=== PATIENT | female | born 1960 | race Caucasian/White ===

== ENCOUNTER 2018-03-11 00:52 | Emergency (ER) | payer OTHER, MEDICAID, SELFPAY ==
[2018-03-11 01:02] VITALS: BP 141/94; PULSE 98; RESP 18; TEMP 36.7; O2SAT 94; BMI 20.2
--- NOTE | 2018-03-11 01:30 | PC.NURSE ---
Medics state pt has ETOH onboard and was threatening to jump off bridge. Upon arrival pt states that she drank more than usual and denies SI, wanting to harm herself or others. Pt is alert and orientated.
--- NOTE | 2018-03-11 01:31 | ED_ITS ---
HPI - Psych General Chief Complaint: Psychiatric Symptoms Stated Complaint: Suicidal Ideation Time Seen by Provider: 03/11/18 01:06 Source: patient and EMS Mode of arrival: EMS Limitations: no limitations History of Present Illness HPI Narrative: 50-year-old female with chronic liver problems presents to the emergency department with a chief complaint of significant alcohol consumption over the course of the day and she became upset and told EMS that stated leave her alone she would jump off a bridge. She denies any pain and has no fever or chills. She has no chest pain or shortness of breath. She is not dizzy nor weak or lightheaded. She admittedly drink more than she is used to and by arrival here denies any suicidal ideation MD complaint: suicidal ideation and feels depressed Onset (ago): hour(s) Duration: resolved prior to arrival History of same: No Relieving factors: none Exacerbating factors: alcohol Context: recent alcohol abuse Associated psychiatric symptoms: depression Associated symptoms: denies other symptoms Treatments prior to arrival: none Related Data Home Medications Medication Instructions Recorded Confirmed multivitamin [Multiple Vitamins] 1 tab PO QDAY #0 07/27/17 03/02/18 Previous Rx's Medication Instructions Recorded rifaximin [Xifaxan] 550 mg PO BID #60 tab 09/16/16 nadolol 20 mg PO QDAY #90 tab 02/09/17 lactulose 30 ml PO BID #1892 ml 04/21/17 spironolactone [Aldactone] 50 mg PO QDAY #90 tab 06/22/17 furosemide 20 mg tablet 20 mg PO QDAY #30 tab 03/02/18 lorazepam 1 mg tablet 1 mg PO BIDP PRN #30 tab 03/02/18 Allergies Allergy/AdvReac Type Severity Reaction Status Date / Time No Known Drug Allergies Allergy Verified 03/11/18 01:02 Review of Systems Review of Systems All systems reviewed & are unremarkable except as noted in HPI and below Constitutional Denies chills, Denies fever(s), Denies lethargy and Denies weakness Eyes Denies change in vision, Denies eye discharge, Denies irritation and Denies loss of vision ENT Ears, Nose, Mouth, and Throat: Denies change in voice, Denies neck pain and Denies sore throat Cardiovascular Denies chest pain, Denies irregular heart rhythm, Denies lightheadedness, Denies palpitations, Denies dyspnea, Denies dyspnea on exertion and Denies orthopnea Respiratory Denies cough, Denies dyspnea, Denies dyspnea on exertion and Denies wheezing Gastrointestinal Gastrointestinal: Denies abdominal pain, Denies change in bowel habits, Denies diarrhea, Denies nausea and Denies vomiting Genitourinary Denies hematuria, Denies flank pain, Denies urinary incontinence and Denies urinary urgency Musculoskeletal Denies neck pain Integumentary/Breasts Denies pruritus, Denies erythema, Denies rash and Denies wounds Neurologic Denies confusion, Denies loss of vision and Denies weakness Psychiatric Denies anxiety, Denies confusion, Reports depression, Denies homicidal ideation and Reports suicidal ideation Endocrine Denies palpitations Hematologic/Lymphatic Denies easy bruising Allergic/Immunologic Denies wheezing PFSH Medical History Anxiety (Chronic) Cardiac arrhythmia (Chronic) Cirrhosis (Chronic 2012) Coagulation disorder (Chronic 2012) EV (esophageal varices) (Chronic 10/2015) Eczema (Chronic 2014) GI bleeding (Chronic 2015) Hypertension (Chronic) Hypothyroidism (Chronic) Nonalcoholic fatty liver disease (Chronic) PTSD (post-traumatic stress disorder) (Chronic 1999) Portal hypertensive gastropathy (Chronic 05/2015) Psoriasis (Chronic 2014) Chicken pox (Resolved) History of blood transfusion (Resolved 10/2015) History of heavy periods (Resolved 2014) Measles (Resolved) Mumps (Resolved) Ovarian cyst (Resolved 2012) Painful menstrual periods (Resolved 2012) Surgical History History of esophagogastroduodenoscopy (EGD) (Resolved 01/2009) History of esophagogastroduodenoscopy (EGD) (Resolved 05/2015) Status post appendectomy (Resolved) Status post colonoscopy (Resolved 01/2009) Status post hernia repair (Resolved) Status post hysteroscopy (Resolved 06/17/11) Status post laparoscopic supracervical hysterectomy (Resolved 08/25/16) Family History Grandfather Heart disease [place] (myocardial infarction) Grandmother Alcoholism Father No problems noted. Mother No problems noted. Grandfather Heart disease Grandmother Colon cancer Brother No problems noted. Social History (Reviewed 03/11/18 @ 01:30 by JESUS Ocampo Smoking Status: Never smoker Exam Narrative Exam Narrative: GENERAL: A bit disheveled and in mild distress, smells of alcohol but is smiling and interactive HEAD: Atraumatic. Normocephalic. No temporal or scalp tenderness. EYES: Pupils equal round and reactive. Extraocular motions intact. No scleral icterus. No injection or drainage. ENT: Nose without bleeding, purulent drainage or septal hematoma. Throat without erythema, tonsillar hypertrophy or exudate. Uvula midline. Airway patent. NECK: Trachea midline. No JVD or lymphadenopathy. Supple, nontender, no meningeal signs. CARDIOVASCULAR: Regular rate and rhythm without murmurs, gallops, or rubs. RESPIRATORY: Clear to auscultation. Breath sounds equal bilaterally. No wheezes , rales, or rhonchi. GASTROINTESTINAL: Abdomen soft, non-tender, nondistended. No hepato-splenomegaly , or palpable masses. No guarding. EXTREMITIES: No clubbing, cyanosis, or edema. No joint tenderness, effusion, or edema noted. BACK: Nontender without deformity or crepitance. No flank tenderness. NEURO: AOx3. SKIN: No rash or erythema. Initial Vital Signs Initial Vital Signs: Vital Signs Temperature 98.0 F 03/11/18 01:02 Pulse Rate 98 H 03/11/18 01:02 Respiratory Rate 18 03/11/18 01:02 Blood Pressure 141/94 H 03/11/18 01:02 Pulse Oximetry 94 03/11/18 01:02 Course Orders Ordered: ED Orders 03/11/18 01:20 Complete Blood Count AUTO DIFF Stat Comprehensive Metabolic Panel Stat Ethanol (ETOH) Stat Hepatic (Liver) Panel Stat Lipase Stat Magnesium Stat 03/11/18 01:50 Urine Drug Screen, Rapid Stat Sodium Chloride (Normal Saline 0.9%) 1,000 mls @ 150 mls/hr IV CONT AGNIESZKA Last Admin: 03/11/18 01:32 Dose: 150 mls/hr Reevaluation(s) Reevaluation #1: Patient speaking clearly without slurring words unable to walk with a steady gait. She has full capacity and is requesting discharge. Time: 06:33 Vital Signs - 8 hr 03/11/18 01:02 03/11/18 06:25 Temperature 98.0 F 98.0 F Pulse Rate 98 H 98 H Respiratory Rate 18 18 Blood Pressure 141/94 H 141/94 H Pulse Oximetry 94 94 MDM - Psych Lab Data Result diagrams: 03/11/18 01:20 03/11/18 01:20 Lab Results 03/11/18 03/11/18 03/11/18 Range/Units 01:20 01:20 01:50 WBC 9.0 (4.5-11.0) X10^3/uL RBC 4.56 (4.0-5.2) X10^6/uL Hgb 15.0 (12.0-16.0) g/dL Hct 43.1 (36-46) % MCV 94.5 (80-100) fL MCH 33.0 (26-34) PG MCHC 34.9 (30-36) % RDW 13.5 (11.6-14.8) % Plt Count 215 (150-400) X10^3/uL Neut % (Auto) 49.4 L (50-75) % Lymph % (Auto) 39.6 (25-40) % Wharton % (Auto) 8.7 (3-14) % Eos % (Auto) 1.5 L (2-4) % Baso % (Auto) 0.8 (0-2) % Neut # (Auto) 4400 (7504-1457) /uL Sodium 151 H (137-145) mmol/L Potassium 4.4 (3.4-5.1) mmol/L Chloride 109 H (98-107) mmol/L Carbon Dioxide 25 (22-32) mmol/L BUN 11 (7-17) mg/dL Creatinine 0.60 (0.52-1.04) mg/dL Estimated GFR > 60.0 (>60) mL/min BUN/Creatinine Ratio 18.3 (6-22) Glucose 88 (70-100) mg/dL Calcium 9.9 (8.4-10.2) mg/dL Magnesium 1.7 (1.6-2.3) mg/dL Total Bilirubin 0.6 (0.2-1.3) mg/dL Conjugated Bilirubin 0.0 (0.0-0.3) md/dL Unconjugated Bilirubin 0.3 (0.0-1.1) mg/dL AST 233 H (14-36) IU/L ALT 175 H (9-52) IU/L Alkaline Phosphatase 81 (38-126) U/L Total Protein 8.1 (6.3-8.2) g/dL Albumin 4.7 (3.5-5.0) g/dL Globulin 3.4 (1.7-4.1) g/dL Albumin/Globulin Ratio 1.4 (1.0-2.8) Lipase 378 H (23-300) U/L Urine Opiates Screen Negative (Negative) Ur Oxycodone Screen Negative (Negative) Urine Methadone Screen Negative (Negative) Ur Barbiturates Screen Negative (Negative) U Tricyclic Antidepress Negative (Negative) Ur Phencyclidine Scrn Negative (Negative) Ur Amphetamines Screen Negative (Negative) U Methamphetamines Scrn Negative (Negative) Ur MDMA Scrn (Ecstasy) Negative (Negative) U Benzodiazepines Scrn Negative (Negative) Urine Cocaine Screen Negative (Negative) U Marijuana (THC) Screen Negative (Negative) Ethyl Alcohol 460 H* mg/dL Discharge Plan Departure Patient Disposition: Home Clinical Impression: Alcohol abuse Instructions: Alcohol Use Disorder Activity Restrictions/Additional Instructions: *You have been diagnosed with [ alcohol intoxication and depression ] *What to do: * continue to take medications as directed *Follow up with your primary care provider in 2-3 days, call for an appointment. Let them know you were seen in the Emergency Department and that we ask that you be seen in follow up *Return to ER if you should have any new, worsening or concerning symptoms , such as [ worsening pain, persistent vomiting, unplanned weight loss or other bother some symptoms Prescriptions: No Action rifaximin [Xifaxan] 550 MG tablet 550 mg PO BID Qty: 60 RF: 11 nadolol 20 MG tablet 20 mg PO QDAY Qty: 90 RF: 3 lactulose 10 GM/15 ML solution 30 ml PO BID Qty: 1892 RF: 6 spironolactone [Aldactone] 50 MG tablet 50 mg PO QDAY Qty: 90 RF: 0 multivitamin [Multiple Vitamins] 1 EACH tablet 1 tab PO QDAY Qty: 0 RF: 0 furosemide [Lasix] 20 mg tablet 20 mg PO QDAY Qty: 30 RF: 0 lorazepam 1 mg tablet 1 mg PO BIDP PRN (Reason: sleep) Qty: 30 RF: 0 Referrals: Chloe Herndon MD [Primary Care Provider] -
[2018-03-11] MEDS: SODIUM CHLORIDE 0.9% 1,000 ML 150 ML IV (01:32)
--- NOTE | 2018-03-11 01:36 | PC.NURSE ---
Pt ambulated with 1 person assist. Pt did not ambulate with steady gait to bathroom
[2018-03-11 01:39] LABS: Add Manual Diff / Slide Review NO; Basophils Percent Auto 0.8 % (0-2); Eosinophils Percent Auto 1.5 % (2-4); Hematocrit 43.1 % (36-46); Lymphocytes Percent Auto 39.6 % (25-40); Mean Corpuscular HGB Conc 34.9 % (30-36); Mean Corpuscular Volume 94.5 fL (80-100); Monocytes Percent Auto 8.7 % (3-14); Neutrophils Absolute Auto 4400 /uL (3000-5900); Neutrophils Percent Auto 49.4 % (50-75); Platelet Count 215 X10^3/uL (150-400); Red Blood Cell Count 4.56 X10^6/uL (4.0-5.2); Red Cell Distribution Width 13.5 % (11.6-14.8)
[2018-03-11 01:43] LABS: Alanine Aminotransferase 175 IU/L (9-52); Albumin 4.7 g/dL (3.5-5.0); Albumin Globulin Ratio 1.4 (1.0-2.8); Alkaline Phosphatase 81 U/L (38-126); Aspartate Aminotransferase 233 IU/L (14-36); BUN Creatinine Ratio 18.3 (6-22); Bilirubin Total 0.6 mg/dL (0.2-1.3); Bilirubin Unconjugated 0.3 mg/dL (0.0-1.1); Blood Urea Nitrogen 11 mg/dL (7-17); Calcium 9.9 mg/dL (8.4-10.2); Carbon Dioxide 25 mmol/L (22-32); Chloride 109 mmol/L (98-107); Estimated Glomerular Filt Rate > 60.0 mL/min (>60); Globulin 3.4 g/dL (1.7-4.1); Glucose 88 mg/dL (70-100); HEMOLYSIS < 15 (0-50); Lipase 378 U/L (23-300); Magnesium 1.7 mg/dL (1.6-2.3); Potassium 4.4 mmol/L (3.4-5.1); Sodium 151 mmol/L (137-145); Total Protein 8.1 g/dL (6.3-8.2)
[2018-03-11 01:57] LABS: Ethanol (ETOH) 460 mg/dL
[2018-03-11 02:02] LABS: Urine Amphetamines Negative (Negative); Urine Barbiturates Negative (Negative); Urine Benzodiazepines Negative (Negative); Urine Cocaine Negative (Negative); Urine MDMA Negative (Negative); Urine Methadone Negative (Negative); Urine Methamphetamines Negative (Negative); Urine Morphine/Opi cutoff 2000 Negative (Negative); Urine Oxycodone Negative (Negative); Urine Phencyclidine Negative (Negative); Urine THC Negative (Negative); Urine Tricyclic Antidepressant Negative (Negative)
[2018-03-11 04:00] VITALS: BP 128/90; PULSE 90; RESP 14; O2SAT 100
[2018-03-11 06:25] VITALS: BP 141/94; PULSE 98; RESP 18; TEMP 36.7; O2SAT 94; BMI 20.2
[2018-03-11 06:39] VITALS: BP 119/74; PULSE 87; RESP 14; O2SAT 100
== END 2018-03-11 06:39 | disposition home or self-care (01) ==
PROVIDERS: Emergency Provider Emergency Medicine; PCP Family Medicine
DX: F10.10 Alcohol abuse, uncomplicated (principal)
CPT/HCPCS: 36591; 80053; 80076; 80305; 80320; 81003; 83690; 83735; 85025; 96360; 96361; 99284

== ENCOUNTER 2018-04-23 05:29 | Emergency (ER) | payer OTHER, MEDICAID, SELFPAY ==
[2018-04-23] VITALS (11 sets, daily range): BP systolic 69–113; BP diastolic 47–71; PULSE 73–87; RESP 18–21; TEMP 35.7–37.1; O2SAT 92–100; BMI 21.1
--- NOTE | 2018-04-23 06:06 | DI.CT.S_ITS ---
PROCEDURE: CT CHEST ABD PEL W CON INDICATIONS: vomiting blood, history of varices. fall down stairs 4 days ago, chest and abdominal pain TECHNIQUE: After the administration of intravenous contrast, 5 mm thick sections acquired from the lung apices to the symphysis. 2.5 mm thick coronal and sagittal reformats were acquired. Additional 7 mm thick coronal maximum intensity projection (MIP) reformats acquired through the lungs. Optional 10-minute delayed imaging may be performed from the kidneys to the bladder. For radiation dose reduction, the following was used: automated exposure control, adjustment of mA and/or kV according to patient size. COMPARISON: None. FINDINGS: Image quality: Excellent. CHEST: Lungs: No pulmonary contusions or lacerations. No acute airspace opacities. No pneumothorax or hemothorax. Central and peripheral airways appear patent and normal in caliber. Mediastinum: No mediastinal hematomas. Heart size is normal. No pericardial effusion. Thoracic aorta and pulmonary arteries demonstrate normal size and enhancement. No mediastinal or hilar adenopathy. Esophagus is normal in caliber. No hiatal hernia. Chest wall: There are fractures involving left posterior 10th, 11th and 12th ribs. No subcutaneous emphysema. No axillary or supraclavicular adenopathy. Thyroid gland is normal in size.. ABDOMEN: Solid organs: Liver is enlarged with heterogeneous contrast enhancement and lobulated contour, suggestive of hepatocellular disease such as cirrhosis, metastatic disease cannot be entirely excluded. No evidence of liver laceration. Gallbladder is surgically absent. Biliary system is non-dilated. Pancreas enhances normally, without transection. Spleen is normal in size and enhancement, without lacerations. No adrenal hematomas. Both kidneys enhance normally, without hydronephrosis or lacerations. Peritoneum and bowel: No free fluid or air. Unenhanced bowel loops demonstrate normal wall thickness and caliber. Small hiatal hernia is seen. Nodes and vessels: No retroperitoneal or mesenteric adenopathy. Aorta and inferior vena cava are normal in size and enhancement. Miscellaneous: No ventral hernias. PELVIS: Genitourinary: Bladder wall thickness is normal. Miscellaneous: No inguinal hernias or adenopathy. Bones: Pelvic ring and hip joints appear intact. No vertebral compression fractures. IMPRESSION: 1. Minimally displaced fractures involving left posterior 10th through 12th ribs. 2. Bilateral lungs are clear. 3. Enlarged and heterogeneously enhancing liver, which may represent hepatocellular disease such as cirrhosis. Extensive metastatic liver disease cannot be entirely excluded. No evidence of liver laceration. 4. No peritoneal free fluid or free air. No gross acute solid organ injury within abdomen or pelvis. No significant discrepancies from overnight report. Dictated by: Gamal Guallpa M.D. on 04/23/2018 at 8:24 Approved by: Gamal Guallpa M.D. on 04/23/2018 at 8:35
[2018-04-23] MEDS: SODIUM CHLORIDE 0.9% 1,000 ML 150 ML IV (06:17)
[2018-04-23 06:18] LABS: Add Manual Diff / Slide Review NO; Basophils Percent Auto 1.1 % (0-2); Hematocrit 39.2 % (36-46); Hemoglobin 13.2 g/dL (12.0-16.0); Lymphocytes Percent Auto 29.9 % (25-40); Mean Corpuscular HGB Conc 33.6 % (30-36); Mean Corpuscular Volume 98.2 fL (80-100); Monocytes Percent Auto 4.8 % (3-14); Neutrophils Absolute Auto 6500 /uL (3000-5900); Neutrophils Percent Auto 63.2 % (50-75); Platelet Count 210 X10^3/uL (150-400); Red Blood Cell Count 3.99 X10^6/uL (4.0-5.2); Red Cell Distribution Width 15.4 % (11.6-14.8); White Blood Cell Count 10.3 X10^3/uL (4.5-11.0)
[2018-04-23] MEDS: OCTREOTIDE 100 MCG/ML VIAL 50 MCG IV (06:18)
[2018-04-23] MEDS: ONDANSETRON 4 MG/2 ML INJ IV ×2 (06:21→10:22)
[2018-04-23] MEDS: fentaNYL 100 MCG/2 ML INJ 50 MCG IV (06:23)
[2018-04-23 06:24] LABS: INR 1.2 (0.9-1.3); Prothrombin Time 13.2 SECONDS (10.1-12.7)
[2018-04-23 06:27] LABS: PTT Partial Thromboplastin Tim 30 SECONDS (26.4-36.2)
[2018-04-23 06:28] LABS: Alanine Aminotransferase 134 IU/L (9-52); Albumin 4.7 g/dL (3.5-5.0); Albumin Globulin Ratio 1.5 (1.0-2.8); Alkaline Phosphatase 58 U/L (38-126); Aspartate Aminotransferase 183 IU/L (14-36); Bilirubin Total 1.2 mg/dL (0.2-1.3); Blood Urea Nitrogen 32 mg/dL (7-17); Calcium 9.4 mg/dL (8.4-10.2); Carbon Dioxide 25 mmol/L (22-32); Chloride 102 mmol/L (98-107); Estimated Glomerular Filt Rate > 60.0 mL/min (>60); Globulin 3.1 g/dL (1.7-4.1); Glucose 96 mg/dL (70-100); HEMOLYSIS 18 (0-50); Potassium 4.8 mmol/L (3.4-5.1); Sodium 146 mmol/L (137-145); Total Protein 7.8 g/dL (6.3-8.2)
--- NOTE | 2018-04-23 06:46 | ED.GIBLEED ---
HPI - GI Bleed <Ruth Rodriguez, DO - Last Filed: 04/30/18 19:04> General Chief complaint: GI Bleed Stated complaint: throwing up blood just now Time Seen by Provider: 04/23/18 05:50 Source: patient and family (mom) Mode of arrival: ambulatory Limitations: no limitations History of Present Illness HPI Narrative: This is a 50-year-old female comes to the emergency department with complaint of vomiting blood. Patient also states that she had a fall 4 days ago. She states that she left her CT outside over night Um hurt it fighting with another animal and jumped out of bed to get to the door. She states that when she jumped out of bed she slipped and fell on her back. She does not think that she hit her head. She did not have a loss of consciousness. She has felt tongue co move she denies any neck pain no back pain but she has had pain on the left side of her chest as well as some bruising. On the last couple hours she started having vomiting and threw up some sort of coffee-ground blood. She has a history of upper GI bleed with bright red blood secondary to esophageal varices. She follows with [facility] for her hepatology care. 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 She does drink alcohol although she states typically to excess. She has not had fevers, she does short of breath feels like it is difficult to take a deep breath secondary to pain she has not been having any black or bloody stools. She has any urinary symptoms. She denies any other injury currently. Related Data Home Medications Medication Instructions Recorded Confirmed multivitamin [Multiple Vitamins] 1 tab PO QDAY #0 07/27/17 04/30/18 lactulose 30 ml PO DAILY 04/23/18 04/30/18 lorazepam 1 mg PO BIDP PRN 04/23/18 04/30/18 nadolol 30 mg PO QDAY 04/23/18 04/30/18 spironolactone [Aldactone] 100 mg PO QDAY 04/23/18 04/30/18 ciprofloxacin 500 mg tablet 500 mg PO Q12H 04/30/18 04/30/18 omeprazole 20 mg capsule,delayed 20 mg PO BID cap 04/30/18 04/30/18 release Previous Rx's Medication Instructions Recorded rifaximin [Xifaxan] 550 mg PO BID #60 tab 09/16/16 furosemide 20 mg tablet 20 mg PO QDAY #30 tab 03/02/18 cyclobenzaprine 5 mg tablet 10 mg PO TID PRN #14 tab 04/30/18 Allergies Allergy/AdvReac Type Severity Reaction Status Date / Time No Known Drug Allergies Allergy Verified 04/30/18 15:30 Review of Systems <DO Crystal Puri Last Filed: 04/30/18 19:04> Review of Systems All systems reviewed & are unremarkable except as noted in HPI and below Constitutional Denies fever(s) and Denies headache(s) Eyes Denies change in vision ENT Ears, Nose, Mouth, and Throat: Reports dizziness and Denies headache(s) Cardiovascular Denies chest pain, Denies diaphoresis, Denies syncope, Denies pedal edema, Denies irregular heart rhythm, Denies leg edema, Denies lightheadedness, Denies palpitations, Denies dyspnea, Denies dyspnea on exertion and Denies orthopnea Respiratory Denies chest congestion, Denies cough, Denies hemoptysis, Denies excessive phlegm production, Reports pain on inspiration, Denies dyspnea, Denies dyspnea on exertion and Denies wheezing Gastrointestinal Gastrointestinal: Denies abdominal pain, Denies change in bowel habits, Denies diarrhea, Reports nausea, Reports vomiting and Reports hematemesis (coffee ground per patient.) Genitourinary Denies hematuria, Denies flank pain, Denies urinary incontinence and Denies urinary urgency Musculoskeletal Reports back pain (left ribs/side of back.) and Reports tingling Integumentary/Breasts Reports unusual bruising Neurologic Denies confusion, Reports dizziness, Denies syncope, Denies headache(s), Denies focal weakness, Reports tingling and Denies paresthesias Psychiatric Denies confusion Endocrine Denies palpitations Allergic/Immunologic Denies wheezing Exam <DO Crystal Puri Last Filed: 04/30/18 19:04> Narrative Exam Narrative: GEN: well nourished, well appearing female, alert and oriented x 3, patient appears to be in mild distress. HEENT: Atraumatic, pupils are equal round reactive to light, extraocular movements are intact, nares are clear, TMs are clear with no fluid, there is no conjunctival pallor. Throat is clear without any exudates, erythema, tonsillar enlargement or uvular deviation HEART: Regular rate and rhythm without murmur, clicks, rubs. LUNGS:Lungs clear to auscultation, no wheezes, rales, crackles, chest moves symmetrically ABD:bowel sounds normal, soft, non-tender, no guarding, rebound, rigidity, no masses noted, no hepatosplenomegaly :No CVA tenderness BACK: No cervical, thoracic or lumbar vertebral point tenderness. Patient has slightly decreased range of motion, patient has increased pain with flexion extension and trying to lay back in the bed.. Muscle strength is 5/5 in upper and lower extremities, 2+ pulses bilateral upper extremities. Patient has sensation upper extremities and lower extremities MSCL: Non-tender, no muscle atrophy, muscles strength 5/5 upper and lower extremities, full range of motion NEURO:CN 2-12 intact, sensation normal Initial Vital Signs Initial Vital Signs: Vital Signs Temperature 96.3 F L 04/23/18 05:45 Pulse Rate 87 04/23/18 05:45 Respiratory Rate 18 04/23/18 05:45 Blood Pressure 113/66 04/23/18 05:45 Pulse Oximetry 97 04/23/18 05:45 <Dawit Becerril DO - Last Filed: 04/23/18 10:52> Initial Vital Signs Initial Vital Signs: Vital Signs Temperature 96.3 F L 04/23/18 05:45 Pulse Rate 87 04/23/18 05:45 Respiratory Rate 18 04/23/18 05:45 Blood Pressure 113/66 04/23/18 05:45 Pulse Oximetry 97 04/23/18 05:45 Scores <DO Crystal Puri Last Filed: 04/30/18 19:04> GCS Karla coma scale eye opening: Spontaneous [place] coma scale verbal response: Orientated Karla coma scale motor response: Obey commands Karla coma scale total score: 15 Course <DO Crystal Puri Last Filed: 04/30/18 19:04> Orders Ordered: Discontinued Medications Fentanyl (Sublimaze) 50 mcg IV NOW ONE Stop: 04/23/18 06:07 Last Admin: 04/23/18 06:23 Dose: 50 mcg Sodium Chloride (Normal Saline 0.9%) 1,000 mls @ 150 mls/hr IV CONT AGNIESZKA Last Infusion: 04/23/18 10:53 Dose: 0 mls/hr Admin: 04/23/18 06:17 Dose: 150 mls/hr Octreotide Acetate 500 mcg/ (Sodium Chloride) 101 mls @ 5.05 mls/hr IV CONT AGNIESZKA; Protocol Last Infusion: 04/23/18 11:18 Dose: 0 mcg/hr, 0 mls/hr Admin: 04/23/18 07:34 Dose: 25 mcg/hr, 5.05 mls/hr Metoclopramide HCl (Reglan) 10 mg IV NOW ONE Stop: 04/23/18 07:50 Last Admin: 04/23/18 07:57 Dose: 10 mg Octreotide Acetate (Sandostatin) 50 mcg IV NOW ONE Stop: 04/23/18 06:07 Last Admin: 04/23/18 06:18 Dose: 50 mcg Ondansetron HCl (Zofran) 4 mg IV NOW ONE Stop: 04/23/18 06:07 Last Admin: 04/23/18 06:21 Dose: 4 mg Ondansetron HCl (Zofran) 4 mg IV NOW ONE Stop: 04/23/18 10:21 Last Admin: 04/23/18 10:22 Dose: 4 mg Pantoprazole Sodium (Protonix) 40 mg IV NOW ONE Stop: 04/23/18 07:07 Last Admin: 04/23/18 07:34 Dose: 40 mg Vital Signs - 8 hr 04/23/18 05:45 04/23/18 06:43 04/23/18 07:43 Temperature 96.3 F L Pulse Rate 87 80 78 Respiratory Rate 18 20 Blood Pressure 113/66 Blood Pressure [Right Arm] 106/71 88/53 L Pulse Oximetry 97 98 04/23/18 08:45 04/23/18 09:00 04/23/18 09:54 Temperature 97.7 F 98.3 F 97.7 F Pulse Rate 77 76 81 Respiratory Rate 20 20 20 Blood Pressure 69/49 L 82/47 L Blood Pressure [Right Arm] 89/54 L Pulse Oximetry 99 04/23/18 10:09 04/23/18 10:43 Temperature 98.4 F Pulse Rate 77 73 Respiratory Rate 18 20 Blood Pressure 91/65 Blood Pressure [Right Arm] 104/68 Pulse Oximetry 100 <Dawit Becerril DO - Last Filed: 04/23/18 10:52> Orders Ordered: Discontinued Medications Fentanyl (Sublimaze) 50 mcg IV NOW ONE Stop: 04/23/18 06:07 Last Admin: 04/23/18 06:23 Dose: 50 mcg Sodium Chloride (Normal Saline 0.9%) 1,000 mls @ 150 mls/hr IV CONT AGNIESZKA Last Infusion: 04/23/18 10:53 Dose: 0 mls/hr Admin: 04/23/18 06:17 Dose: 150 mls/hr Octreotide Acetate 500 mcg/ (Sodium Chloride) 101 mls @ 5.05 mls/hr IV CONT AGNIEZSKA; Protocol Last Infusion: 04/23/18 11:18 Dose: 0 mcg/hr, 0 mls/hr Admin: 04/23/18 07:34 Dose: 25 mcg/hr, 5.05 mls/hr Metoclopramide HCl (Reglan) 10 mg IV NOW ONE Stop: 04/23/18 07:50 Last Admin: 04/23/18 07:57 Dose: 10 mg Octreotide Acetate (Sandostatin) 50 mcg IV NOW ONE Stop: 04/23/18 06:07 Last Admin: 04/23/18 06:18 Dose: 50 mcg Ondansetron HCl (Zofran) 4 mg IV NOW ONE Stop: 04/23/18 06:07 Last Admin: 04/23/18 06:21 Dose: 4 mg Ondansetron HCl (Zofran) 4 mg IV NOW ONE Stop: 04/23/18 10:21 Last Admin: 04/23/18 10:22 Dose: 4 mg Pantoprazole Sodium (Protonix) 40 mg IV NOW ONE Stop: 04/23/18 07:07 Last Admin: 04/23/18 07:34 Dose: 40 mg Reevaluation(s) Reevaluation #1: patient continues to be nauseated. Her H/H is stable, she's had one episode of vomiting here which was dark, but not coffee ground. Her BP has been largely in the upper 80s-105, she was given 1L saline overnight and now is given 2units PRBCs. Initial attempt to transfer to given her history there, but there are no beds. Second we called [place] whom also have no beds. Family request . Dr. Velazco is happy to accept. Current BP is 89. [facility] contacted given severity of illness and distance to travel but they cannot fly due to weather. [facility] called Vital Signs - 8 hr 04/23/18 05:45 04/23/18 06:43 04/23/18 07:43 Temperature 96.3 F L Pulse Rate 87 80 78 Respiratory Rate 18 20 Blood Pressure 113/66 Blood Pressure [Right Arm] 106/71 88/53 L Pulse Oximetry 97 98 04/23/18 08:45 04/23/18 09:00 04/23/18 09:54 Temperature 97.7 F 98.3 F 97.7 F Pulse Rate 77 76 81 Respiratory Rate 20 20 20 Blood Pressure 69/49 L 82/47 L Blood Pressure [Right Arm] 89/54 L Pulse Oximetry 99 04/23/18 10:09 04/23/18 10:43 Temperature 98.4 F Pulse Rate 77 73 Respiratory Rate 18 20 Blood Pressure 91/65 Blood Pressure [Right Arm] 104/68 Pulse Oximetry 100 MDM - GI Bleed <Ruth Rodriguez, - Last Filed: 04/30/18 19:04> Lab Data Result diagrams: 04/23/18 10:02 04/23/18 06:00 Lab Results 04/23/18 04/23/18 04/23/18 Range/Units 06:00 06:00 06:00 WBC 10.3 (4.5-11.0) X10^3/uL RBC 3.99 L (4.0-5.2) X10^6/uL Hgb 13.2 (12.0-16.0) g/dL Hct 39.2 (36-46) % MCV 98.2 (80-100) fL MCH 33.0 (26-34) PG MCHC 33.6 (30-36) % RDW 15.4 H (11.6-14.8) % Plt Count 210 (150-400) X10^3/uL Neut % (Auto) 63.2 (50-75) % Lymph % (Auto) 29.9 (25-40) % Hemphill % (Auto) 4.8 (3-14) % Eos % (Auto) 1.0 L (2-4) % Baso % (Auto) 1.1 (0-2) % Neut # (Auto) 6500 H (2403-3347) /uL PT 13.2 H (10.1-12.7) SECONDS INR 1.2 (0.9-1.3) APTT 30 (26.4-36.2) SECONDS Sodium 146 H (137-145) mmol/L Potassium 4.8 (3.4-5.1) mmol/L Chloride 102 (98-107) mmol/L Carbon Dioxide 25 (22-32) mmol/L BUN 32 H (7-17) mg/dL Creatinine 0.80 (0.52-1.04) mg/dL Estimated GFR > 60.0 (>60) mL/min BUN/Creatinine Ratio 40.0 H (6-22) Glucose 96 (70-100) mg/dL Calcium 9.4 (8.4-10.2) mg/dL Total Bilirubin 1.2 (0.2-1.3) mg/dL AST 183 H (14-36) IU/L ALT 134 H (9-52) IU/L Alkaline Phosphatase 58 (38-126) U/L Total Protein 7.8 (6.3-8.2) g/dL Albumin 4.7 (3.5-5.0) g/dL Globulin 3.1 (1.7-4.1) g/dL Albumin/Globulin Ratio 1.5 (1.0-2.8) Blood Type Antibody Screen Crossmatch 04/23/18 04/23/18 Range/Units 06:00 10:02 WBC (4.5-11.0) X10^3/uL RBC (4.0-5.2) X10^6/uL Hgb 12.9 (12.0-16.0) g/dL Hct 38.1 (36-46) % MCV (80-100) fL MCH (26-34) PG MCHC (30-36) % RDW (11.6-14.8) % Plt Count (150-400) X10^3/uL Neut % (Auto) (50-75) % Lymph % (Auto) (25-40) % Hemphill % (Auto) (3-14) % Eos % (Auto) (2-4) % Baso % (Auto) (0-2) % Neut # (Auto) (3570-4141) /uL PT (10.1-12.7) SECONDS INR (0.9-1.3) APTT (26.4-36.2) SECONDS Sodium (137-145) mmol/L Potassium (3.4-5.1) mmol/L Chloride (98-107) mmol/L Carbon Dioxide (22-32) mmol/L BUN (7-17) mg/dL Creatinine (0.52-1.04) mg/dL Estimated GFR (>60) mL/min BUN/Creatinine Ratio (6-22) Glucose (70-100) mg/dL Calcium (8.4-10.2) mg/dL Total Bilirubin (0.2-1.3) mg/dL AST (14-36) IU/L ALT (9-52) IU/L Alkaline Phosphatase (38-126) U/L Total Protein (6.3-8.2) g/dL Albumin (3.5-5.0) g/dL Globulin (1.7-4.1) g/dL Albumin/Globulin Ratio (1.0-2.8) Blood Type A Positive Antibody Screen Negative Crossmatch See Detail MDM Narrative Medical decision making narrative: Patient signed out regarding coffee ground <Dawit Becerril DO - Last Filed: 04/23/18 10:52> Lab Data Lab Results 04/23/18 04/23/18 04/23/18 Range/Units 06:00 06:00 06:00 WBC 10.3 (4.5-11.0) X10^3/uL RBC 3.99 L (4.0-5.2) X10^6/uL Hgb 13.2 (12.0-16.0) g/dL Hct 39.2 (36-46) % MCV 98.2 (80-100) fL MCH 33.0 (26-34) PG MCHC 33.6 (30-36) % RDW 15.4 H (11.6-14.8) % Plt Count 210 (150-400) X10^3/uL Neut % (Auto) 63.2 (50-75) % Lymph % (Auto) 29.9 (25-40) % Hemphill % (Auto) 4.8 (3-14) % Eos % (Auto) 1.0 L (2-4) % Baso % (Auto) 1.1 (0-2) % Neut # (Auto) 6500 H (4387-1546) /uL PT 13.2 H (10.1-12.7) SECONDS INR 1.2 (0.9-1.3) APTT 30 (26.4-36.2) SECONDS Sodium 146 H (137-145) mmol/L Potassium 4.8 (3.4-5.1) mmol/L Chloride 102 (98-107) mmol/L Carbon Dioxide 25 (22-32) mmol/L BUN 32 H (7-17) mg/dL Creatinine 0.80 (0.52-1.04) mg/dL Estimated GFR > 60.0 (>60) mL/min BUN/Creatinine Ratio 40.0 H (6-22) Glucose 96 (70-100) mg/dL Calcium 9.4 (8.4-10.2) mg/dL Total Bilirubin 1.2 (0.2-1.3) mg/dL AST 183 H (14-36) IU/L ALT 134 H (9-52) IU/L Alkaline Phosphatase 58 (38-126) U/L Total Protein 7.8 (6.3-8.2) g/dL Albumin 4.7 (3.5-5.0) g/dL Globulin 3.1 (1.7-4.1) g/dL Albumin/Globulin Ratio 1.5 (1.0-2.8) Blood Type Antibody Screen Crossmatch 04/23/18 04/23/18 Range/Units 06:00 10:02 WBC (4.5-11.0) X10^3/uL RBC (4.0-5.2) X10^6/uL Hgb 12.9 (12.0-16.0) g/dL Hct 38.1 (36-46) % MCV (80-100) fL MCH (26-34) PG MCHC (30-36) % RDW (11.6-14.8) % Plt Count (150-400) X10^3/uL Neut % (Auto) (50-75) % Lymph % (Auto) (25-40) % Hemphill % (Auto) (3-14) % Eos % (Auto) (2-4) % Baso % (Auto) (0-2) % Neut # (Auto) (1124-3960) /uL PT (10.1-12.7) SECONDS INR (0.9-1.3) APTT (26.4-36.2) SECONDS Sodium (137-145) mmol/L Potassium (3.4-5.1) mmol/L Chloride (98-107) mmol/L Carbon Dioxide (22-32) mmol/L BUN (7-17) mg/dL Creatinine (0.52-1.04) mg/dL Estimated GFR (>60) mL/min BUN/Creatinine Ratio (6-22) Glucose (70-100) mg/dL Calcium (8.4-10.2) mg/dL Total Bilirubin (0.2-1.3) mg/dL AST (14-36) IU/L ALT (9-52) IU/L Alkaline Phosphatase (38-126) U/L Total Protein (6.3-8.2) g/dL Albumin (3.5-5.0) g/dL Globulin (1.7-4.1) g/dL Albumin/Globulin Ratio (1.0-2.8) Blood Type A Positive Antibody Screen Negative Crossmatch See Detail Discharge Plan Departure Patient Disposition: [facility] Clinical Impression: GI (gastrointestinal bleed), Fracture, ribs Discharge Date/Time: 04/23/18 11:17 Interventions: ED Discharge Assessment Last Done: 04/23/18 11:14 Prescriptions: No Action rifaximin [Xifaxan] 550 MG tablet 550 mg PO BID Qty: 60 RF: 11 multivitamin [Multiple Vitamins] 1 EACH tablet 1 tab PO QDAY Qty: 0 RF: 0 omeprazole 20 mg capsule,delayed release(DR/EC) 20 mg PO BID RF: 0 ciprofloxacin HCl [Cipro] 500 mg tablet 500 mg PO Q12H RF: 0 cyclobenzaprine 5 mg tablet 10 mg PO TID PRN (Reason: muscle spasm) Qty: 14 RF: 0 furosemide [Lasix] 20 mg tablet 20 mg PO QDAY Qty: 30 RF: 0 nadolol 20 MG tablet 30 mg PO QDAY RF: 0 lorazepam 1 mg tablet 1 mg PO BIDP PRN (Reason: Anxiety) RF: 0 spironolactone [Aldactone] 50 MG tablet 100 mg PO QDAY RF: 0 lactulose 10 GM/15 ML solution 30 ml PO DAILY RF: 0
[2018-04-23] MEDS: PANTOPRAZOLE 40 MG VIAL IV (07:34)
[2018-04-23] MEDS: OCTREOTIDE 500 MCG in SODIUM CHLORIDE 0.9% 100 ML 5.05 ML IV (07:34)
[2018-04-23] MEDS: METOCLOPRAMIDE 10 MG/2 ML INJ IV (07:57)
[2018-04-23 10:22] LABS: Hematocrit 38.1 % (36-46); Hemoglobin 12.9 g/dL (12.0-16.0)
== END 2018-04-23 11:17 | disposition short-term general hospital (02) ==
PROVIDERS: Emergency Medicine; Emergency Provider Emergency Medicine; PCP Registered Nurse
DX: K92.2 Gastrointestinal hemorrhage, unspecified (principal); S22.39XA Fracture of one rib, unspecified side, initial encounter for closed fracture; W01.0XXA Fall on same level from slipping, tripping and stumbling without subsequent striking against object, initial encounter
CPT/HCPCS: 36415; 36430; 36591; 71260; 74177; 80053; 85014; 85018; 85025; 85610; 85730; 86850; 86900; 86901; 96361; 96365; 96366; 96375; 96376; 99284; 99285; P9016; C9113; J2354; J2405; J2765; J3010; Q9967

== ENCOUNTER → 2018-04-29 12:56 | Outpatient (CLI) | payer OTHER, MEDICAID, SELFPAY ==
[2018-04-29 14:06] LABS: Add Manual Diff / Slide Review NO; Basophils Percent Auto 0.5 % (0-2); Eosinophils Percent Auto 1.6 % (2-4); Hematocrit 42.2 % (36-46); Lymphocytes Percent Auto 22.4 % (25-40); Mean Corpuscular HGB Conc 33.3 % (30-36); Mean Corpuscular Hemoglobin 32.2 PG (26-34); Mean Corpuscular Volume 96.9 fL (80-100); Monocytes Percent Auto 7.7 % (3-14); Neutrophils Absolute Auto 3700 /uL (3000-5900); Neutrophils Percent Auto 67.8 % (50-75); Platelet Count 112 X10^3/uL (150-400); Red Blood Cell Count 4.36 X10^6/uL (4.0-5.2); White Blood Cell Count 5.4 X10^3/uL (4.5-11.0)
[2018-04-29 14:21] LABS: Lipase 643 U/L (23-300)
[2018-04-29 14:22] LABS: Alanine Aminotransferase 93 IU/L (9-52); Albumin 4.6 g/dL (3.5-5.0); Albumin Globulin Ratio 1.5 (1.0-2.8); Alkaline Phosphatase 71 U/L (38-126); Aspartate Aminotransferase 80 IU/L (14-36); Bilirubin Unconjugated 0.6 mg/dL (0.0-1.1); HEMOLYSIS < 15 (0-50); Total Protein 7.6 g/dL (6.3-8.2)
== END ==
PROVIDERS: Family Provider Registered Nurse; PCP Registered Nurse; Visit Provider Family Medicine
DX: K76.0 Fatty (change of) liver, not elsewhere classified (principal); K92.2 Gastrointestinal hemorrhage, unspecified; S22.39XA Fracture of one rib, unspecified side, initial encounter for closed fracture
CPT/HCPCS: 36415; 80076; 83690; 85002; 85025

== ENCOUNTER → 2018-05-03 10:58 | Outpatient (CLI) | payer OTHER, MEDICAID, SELFPAY ==
[2018-05-03 13:15] LABS: Free T3, Triiodothyronine Free 3.16 pg/mL (2.77-5.27)
[2018-05-03 13:29] LABS: Thyroid Stimulating Hormone 1.44 uIU/mL (0.47-4.68)
== END ==
PROVIDERS: Family Provider Registered Nurse; PCP Registered Nurse; Visit Provider Internal Medicine Endocrinology, Diabetes & Metabolism
DX: E03.8 Other specified hypothyroidism (principal); E55.9 Vitamin D deficiency, unspecified; R10.2 Pelvic and perineal pain
CPT/HCPCS: 36415; 82306; 84439; 84443; 84481; 87086

== ENCOUNTER → 2018-05-13 14:40 | Outpatient (CLI) | payer OTHER, MEDICAID, SELFPAY ==
[2018-05-13 15:16] LABS: Lipase 507 U/L (23-300)
== END ==
PROVIDERS: PCP Registered Nurse; Visit Provider Registered Nurse
DX: R74.8 Abnormal levels of other serum enzymes (principal)
CPT/HCPCS: 36415; 83690

== ENCOUNTER → 2018-06-07 15:23 | Outpatient (CLI) | payer OTHER, MEDICAID, SELFPAY ==
[2018-06-07 18:34] LABS: INR 1.3 (0.9-1.3); Prothrombin Time 13.6 SECONDS (10.1-12.7)
== END ==
PROVIDERS: PCP Registered Nurse; Visit Provider Internal Medicine Gastroenterology
DX: K74.60 Unspecified cirrhosis of liver (principal)
CPT/HCPCS: 36415; 85610

== ENCOUNTER 2018-06-08 18:46 | Emergency (ER) | payer OTHER, MEDICAID, SELFPAY ==
[2018-06-08] VITALS (7 sets, daily range): BP systolic 98–133; BP diastolic 52–84; PULSE 69–81; RESP 14–98; TEMP 36.1; O2SAT 97–100
--- NOTE | 2018-06-08 19:21 | ED.GIBLEED ---
HPI - GI Bleed General Chief complaint: GI Bleed Stated complaint: throat pain Time Seen by Provider: 06/08/18 19:17 Source: patient Mode of arrival: ambulatory Limitations: no limitations History of Present Illness HPI Narrative: Patient is a 58-year-old female who today underwent esophageal varices banding by GI up in [facility]. She was discharged after the procedure. She states that she did have pain that brought her in here to the emergency department today after her procedure which she was told by the operative provider that the pain should improve as the day went on. Patient states the pain is not improved. She has nausea and vomiting. Is not vomiting any blood or coffee-ground material. She has not taken any of her medications. She has not tried anything for the nausea prior to arrival. No fevers. She states she has not had anything to eat or drink since last evening. Has not drank anything since the procedure. Related Data Home Medications Medication Instructions Recorded Confirmed nadolol 30 mg PO QDAY 04/23/18 06/08/18 spironolactone [Aldactone] 100 mg PO QDAY 04/23/18 06/08/18 omeprazole 20 mg capsule,delayed 20 mg PO BID cap 04/30/18 06/08/18 release levothyroxine 25 mcg tablet 25 mcg PO DAILY 05/31/18 06/08/18 liothyronine 5 mcg tablet 10 mcg PO DAILY tab 05/31/18 06/08/18 Previous Rx's Medication Instructions Recorded rifaximin [Xifaxan] 550 mg PO BID #60 tab 09/16/16 furosemide 20 mg tablet 20 mg PO QDAY #30 tab 03/02/18 estradiol 0.025 mg/24 hr 1 patch TRANSDERMAL 2XW #8 each 05/21/18 semiweekly transdermal patch lorazepam 1 mg tablet 1 mg PO DAILY PRN #30 tab 05/31/18 hydrocodone-acetaminophen 1 tab PO Q4-6H PRN #7 tab 06/08/18 ondansetron 4 mg PO Q6-8H PRN #10 tab 06/08/18 sucralfate [Carafate] 10 ml PO QID #420 ml 06/08/18 Allergies Allergy/AdvReac Type Severity Reaction Status Date / Time No Known Drug Allergies Allergy Verified 05/31/18 14:28 Review of Systems Constitutional Denies fever(s), Denies headache(s) and Denies lethargy ENT Ears, Nose, Mouth, and Throat: Denies headache(s) Cardiovascular Reports chest pain, Denies palpitations, Denies dyspnea and Denies slow heart rate Respiratory Denies cough and Denies dyspnea Gastrointestinal Gastrointestinal: Reports abdominal pain, Denies change in bowel habits, Denies cramping, Denies diarrhea, Denies loose stools, Reports nausea, Reports vomiting and Denies hematemesis Integumentary/Breasts Denies rash Neurologic Denies headache(s) Endocrine Denies palpitations Hematologic/Lymphatic Comments: Not on anticoagulation [facility] Social History Smoking Status: Never smoker alcohol intake: current Exam Initial Vital Signs Initial Vital Signs: Vital Signs Temperature 97.0 F L 06/08/18 18:51 Pulse Rate 79 06/08/18 18:51 Respiratory Rate 20 06/08/18 18:51 Blood Pressure 133/74 06/08/18 18:51 Pulse Oximetry 100 06/08/18 18:51 Const General: cooperative, healthy appearing, comfortable, well developed, well groomed and No acute distress Orientation: alert, awake and oriented x3 Chest Chest: normal inspection of the chest, No crepitus and No tenderness Resp Effort & Inspection: normal respiratory effort Auscultation: clear to auscultation bilaterally Cardio Rate: regular rate Rhythm: regular rhythm Pulses: radial pulses present GI Inspection: non-distended Palpation: soft, No firm, No guarding, No rigid and No tender Skin Lesions: no lesions Rashes: no rashes Neuro General: alert, awake and oriented x3 Extrem General: normal to inspection and capillary refill normal Psych Appearance: grossly normal and well kempt Course Orders Ordered: ED Orders 06/08/18 19:58 Complete Blood Count AUTO DIFF Stat Comprehensive Metabolic Panel Stat Lipase Stat 06/08/18 20:04 Partial Thromboplastin Time Stat Prothrombin Time INR Stat Type and Screen Stat Discontinued Medications Hydrocodone Bitart/Acetaminophen ([place] 5/325) 1 tab PO NOW ONE Stop: 06/08/18 21:53 Last Admin: 06/08/18 22:15 Dose: 1 tab Hydrocodone Bitart/Acetaminophen (Vicodin Prepack) 1 bottle MISC SEEINSTR ONE Stop: 06/08/18 22:30 Last Admin: 06/08/18 22:55 Dose: 1 bottle Hydromorphone HCl (Dilaudid) 1 mg IV NOW ONE Stop: 06/08/18 19:50 Last Admin: 06/08/18 19:53 Dose: 1 mg Sodium Chloride (Normal Saline 0.9%) 1,000 mls @ 1,000 mls/hr IV BOLUS ONE Stop: 06/08/18 20:21 Last Infusion: 06/08/18 20:51 Dose: 0 mls/hr Admin: 06/08/18 19:26 Dose: 1,000 mls/hr Ondansetron HCl (Zofran) 4 mg IV NOW ONE Stop: 06/08/18 19:03 Last Admin: 06/08/18 19:26 Dose: 4 mg Ondansetron HCl (Zofran Odt) 4 mg PO NOW ONE Stop: 06/08/18 21:46 Last Admin: 06/08/18 22:14 Dose: 4 mg Ondansetron HCl (Zofran Odt Prepack) 1 bottle MISC SEEINSTR ONE Stop: 06/08/18 22:30 Last Admin: 06/08/18 22:56 Dose: 1 bottle Sucralfate (Carafate) 1 gm PO NOW ONE Stop: 06/09/18 21:53 Vital Signs - 8 hr 06/08/18 20:00 06/08/18 20:30 06/08/18 20:53 Pulse Rate 81 74 70 Respiratory Rate 19 19 98 H Blood Pressure Blood Pressure [Right Arm] 109/69 98/70 104/52 L Pulse Oximetry 100 98 98 06/08/18 22:00 06/08/18 23:09 Pulse Rate 73 69 Respiratory Rate 24 18 Blood Pressure 114/69 Blood Pressure [Right Arm] 130/84 Pulse Oximetry 97 MDM - GI Bleed Lab Data Attestation: I reviewed the patient's lab results. Result diagrams: 06/08/18 19:58 06/08/18 19:58 Lab Results 06/08/18 06/08/18 06/08/18 Range/Units 19:58 19:58 20:04 WBC 9.0 (4.5-11.0) X10^3/uL RBC 4.46 (4.0-5.2) X10^6/uL Hgb 14.5 (12.0-16.0) g/dL Hct 43.0 (36-46) % MCV 96.3 (80-100) fL MCH 32.5 (26-34) PG MCHC 33.7 (30-36) % RDW 15.7 H (11.6-14.8) % Plt Count 196 (150-400) X10^3/uL Neut % (Auto) 78.8 H (50-75) % Lymph % (Auto) 13.9 L (25-40) % Bowie % (Auto) 6.7 (3-14) % Eos % (Auto) 0.1 L (2-4) % Baso % (Auto) 0.5 (0-2) % Neut # (Auto) 7100 H (4721-0028) /uL PT 15.0 H (10.1-12.7) SECONDS INR 1.4 H (0.9-1.3) APTT 35 D (26.4-36.2) SECONDS Sodium 143 (137-145) mmol/L Potassium 4.0 (3.4-5.1) mmol/L Chloride 104 (98-107) mmol/L Carbon Dioxide 23 (22-32) mmol/L BUN 16 (7-17) mg/dL Creatinine 0.60 (0.52-1.04) mg/dL Estimated GFR > 60.0 (>60) mL/min BUN/Creatinine Ratio 26.7 H (6-22) Glucose 89 (70-100) mg/dL Calcium 9.6 (8.4-10.2) mg/dL Total Bilirubin 1.1 (0.2-1.3) mg/dL AST 42 H (14-36) IU/L ALT 47 (9-52) IU/L Alkaline Phosphatase 78 (38-126) U/L Total Protein 8.2 (6.3-8.2) g/dL Albumin 4.7 (3.5-5.0) g/dL Globulin 3.5 (1.7-4.1) g/dL Albumin/Globulin Ratio 1.3 (1.0-2.8) Lipase 329 H (23-300) U/L Blood Type Antibody Screen 06/08/18 Range/Units 20:04 WBC (4.5-11.0) X10^3/uL RBC (4.0-5.2) X10^6/uL Hgb (12.0-16.0) g/dL Hct (36-46) % MCV (80-100) fL MCH (26-34) PG MCHC (30-36) % RDW (11.6-14.8) % Plt Count (150-400) X10^3/uL Neut % (Auto) (50-75) % Lymph % (Auto) (25-40) % Bowie % (Auto) (3-14) % Eos % (Auto) (2-4) % Baso % (Auto) (0-2) % Neut # (Auto) (6431-0514) /uL PT (10.1-12.7) SECONDS INR (0.9-1.3) APTT (26.4-36.2) SECONDS Sodium (137-145) mmol/L Potassium (3.4-5.1) mmol/L Chloride (98-107) mmol/L Carbon Dioxide (22-32) mmol/L BUN (7-17) mg/dL Creatinine (0.52-1.04) mg/dL Estimated GFR (>60) mL/min BUN/Creatinine Ratio (6-22) Glucose (70-100) mg/dL Calcium (8.4-10.2) mg/dL Total Bilirubin (0.2-1.3) mg/dL AST (14-36) IU/L ALT (9-52) IU/L Alkaline Phosphatase (38-126) U/L Total Protein (6.3-8.2) g/dL Albumin (3.5-5.0) g/dL Globulin (1.7-4.1) g/dL Albumin/Globulin Ratio (1.0-2.8) Lipase (23-300) U/L Blood Type A Positive Antibody Screen Negative MDM Narrative Medical decision making narrative: patient's labs unremarkable. She is not having any blood or coffee-ground emesis. She stated that she felt much better after the Zofran and pain medication here in the ER. I did discuss the case with who is on-call for the patient's registered nurses. She stated that if the patient could tolerate oral intake if we could control her symptoms that she did not need to be admitted to the hospital. Patient was able to tolerate oral intake here in the ER. She feels like now that her nausea is improved her pain is improved as well. She describes the location of the symptoms retrosternal patient was also given fluids here in the ER. Do not feel like the patient needs emergent admission to the hospital will send home with nausea medication and pain medication. She was instructed to call her operative provider tomorrow. She was given return precautions. She expressed understanding and agreement with plan. Discharge Plan Departure Patient Disposition: Home Clinical Impression: Post-operative pain, Nausea & vomiting Discharge Date/Time: 06/08/18 23:09 Interventions: ED Discharge Assessment Last Done: 06/08/18 23:09 Instructions: DI for Vomiting -- Adult Activity Restrictions/Additional Instructions: recommend you contact your operative provider tomorrow to discuss follow-up. Take the medications like we discussed. Return to the emergency department for any new or worsening symptoms Prescriptions: New hydrocodone-acetaminophen 5-325 mg tablet 1 tab PO Q4-6H PRN (Reason: pain) Qty: 7 RF: 0 sucralfate [Carafate] 100 mg/mL suspension 10 ml PO QID Qty: 420 RF: 0 ondansetron 4 mg tablet,disintegrating 4 mg PO Q6-8H PRN (Reason: nausea and vomiting) Qty: 10 RF: 0 No Action rifaximin [Xifaxan] 550 MG tablet 550 mg PO BID Qty: 60 RF: 11 estradiol 0.025 mg/24 hr patch semiweekly 1 patch Transdermal 2XW Qty: 8 RF: 11 omeprazole 20 mg capsule,delayed release(DR/EC) 20 mg PO BID RF: 0 levothyroxine [Synthroid] 25 mcg tablet 25 mcg PO DAILY RF: 0 liothyronine [Cytomel] 5 mcg tablet 10 mcg PO DAILY RF: 0 lorazepam 1 mg tablet 1 mg PO DAILY PRN (Reason: Anxiety) Qty: 30 RF: 1 furosemide [Lasix] 20 mg tablet 20 mg PO QDAY Qty: 30 RF: 0 nadolol 20 MG tablet 30 mg PO QDAY RF: 0 spironolactone [Aldactone] 50 MG tablet 100 mg PO QDAY RF: 0
[2018-06-08] MEDS: ONDANSETRON 4 MG/2 ML INJ IV (19:26)
[2018-06-08] MEDS: SODIUM CHLORIDE 0.9% 1,000 ML 1000 ML IV (19:26)
[2018-06-08] MEDS: HYDROMORPHONE 1 MG INJ IV (19:53)
[2018-06-08 20:04] LABS: Add Manual Diff / Slide Review NO; Basophils Percent Auto 0.5 % (0-2); Eosinophils Percent Auto 0.1 % (2-4); Hemoglobin 14.5 g/dL (12.0-16.0); Lymphocytes Percent Auto 13.9 % (25-40); Mean Corpuscular HGB Conc 33.7 % (30-36); Mean Corpuscular Hemoglobin 32.5 PG (26-34); Mean Corpuscular Volume 96.3 fL (80-100); Monocytes Percent Auto 6.7 % (3-14); Neutrophils Absolute Auto 7100 /uL (3000-5900); Neutrophils Percent Auto 78.8 % (50-75); Platelet Count 196 X10^3/uL (150-400); Red Blood Cell Count 4.46 X10^6/uL (4.0-5.2); Red Cell Distribution Width 15.7 % (11.6-14.8)
[2018-06-08 20:19] LABS: Alanine Aminotransferase 47 IU/L (9-52); Albumin 4.7 g/dL (3.5-5.0); Albumin Globulin Ratio 1.3 (1.0-2.8); Alkaline Phosphatase 78 U/L (38-126); Aspartate Aminotransferase 42 IU/L (14-36); BUN Creatinine Ratio 26.7 (6-22); Bilirubin Total 1.1 mg/dL (0.2-1.3); Blood Urea Nitrogen 16 mg/dL (7-17); Calcium 9.6 mg/dL (8.4-10.2); Carbon Dioxide 23 mmol/L (22-32); Chloride 104 mmol/L (98-107); Estimated Glomerular Filt Rate > 60.0 mL/min (>60); Globulin 3.5 g/dL (1.7-4.1); Glucose 89 mg/dL (70-100); HEMOLYSIS 17 (0-50); Lipase 329 U/L (23-300); Sodium 143 mmol/L (137-145); Total Protein 8.2 g/dL (6.3-8.2)
[2018-06-08 20:57] LABS: INR 1.4 (0.9-1.3)
[2018-06-08 21:00] LABS: PTT Partial Thromboplastin Tim 35 SECONDS (26.4-36.2)
[2018-06-08] MEDS: ONDANSETRON 4 MG ODT PO (22:14)
[2018-06-08] MEDS: HYDROCODONE/ACET 5/325 TABLET 1 TAB PO (22:15)
[2018-06-08] MEDS: HYDROCODONE/ACET 5/325 PREPACK 1 BOTTLE MISC (22:55)
[2018-06-08] MEDS: ONDANSETRON 4 MG ODT PREPACK 1 BOTTLE MISC (22:56)
== END 2018-06-08 23:09 | disposition home or self-care (01) ==
PROVIDERS: Emergency Provider Emergency Medicine; Family Provider Registered Nurse; PCP Registered Nurse
DX: G89.18 Other acute postprocedural pain (principal); R11.2 Nausea with vomiting, unspecified
CPT/HCPCS: 36415; 36591; 80053; 83690; 85025; 85610; 85730; 86850; 86900; 86901; 96361; 96374; 96375; 99283; 99284; J1170; J2405

== ENCOUNTER 2018-10-27 23:10 | Emergency (ER) | payer OTHER, MEDICAID, SELFPAY ==
[2018-10-27 23:23] VITALS: BP 154/94; PULSE 98; RESP 22; TEMP 36.6; O2SAT 99
--- NOTE | 2018-10-27 23:25 | ED_ITS ---
HPI - General Adult General Chief complaint: Extremity Injury, Upper Stated complaint: right shoulder injury x7 days Time Seen by Provider: 10/27/18 23:24 Source: patient Mode of arrival: ambulatory Limitations: no limitations History of Present Illness HPI narrative: 58-year-old female here for evaluation of right shoulder pain. She also admits that she has been drinking this evening. She states that she should not be drinking because she has had liver issues in the past but she did mention several times that she has ?alcohol on board ?she is here for evaluation of right shoulder pain. She states that she has been working in the garden for the past couple days. No specific trauma. At 1 point she stated that she thought that maybe she had fallen on her shoulder but she is unsure. Describes the pain is all over the right shoulder. She is also concerned about her liver test because she has been drinking and her prior history of liver issues. Related Data Home Medications Medication Instructions Recorded Confirmed nadolol 30 mg PO QDAY 04/23/18 07/28/18 spironolactone [Aldactone] 100 mg PO QDAY 04/23/18 07/28/18 levothyroxine 25 mcg tablet 25 mcg PO DAILY 05/31/18 07/28/18 liothyronine 5 mcg tablet 10 mcg PO DAILY tab 05/31/18 07/28/18 Previous Rx's Medication Instructions Recorded rifaximin [Xifaxan] 550 mg PO BID #60 tab 09/16/16 furosemide 20 mg tablet 20 mg PO QDAY #30 tab 03/02/18 estradiol 0.025 mg/24 hr 1 patch TRANSDERMAL 2XW #8 each 05/21/18 semiweekly transdermal patch gabapentin 100 mg capsule 100 mg PO BID #60 cap 07/28/18 lorazepam 1 mg tablet 1 mg PO DAILY PRN #30 tab 10/20/18 Allergies Allergy/AdvReac Type Severity Reaction Status Date / Time No Known Drug Allergies Allergy Verified 07/28/18 11:31 Review of Systems Constitutional Denies fever(s) Cardiovascular Denies chest pain and Denies dyspnea Respiratory Denies dyspnea Gastrointestinal Gastrointestinal: Denies abdominal pain Musculoskeletal Reports arthralgias (Right shoulder) Integumentary/Breasts Denies rash Hematologic/Lymphatic Denies easy bleeding and Denies easy bruising [facility] Medical History Anxiety (Chronic) Cardiac arrhythmia (Chronic) Cirrhosis (Chronic 2012) Coagulation disorder (Chronic 2012) EV (esophageal varices) (Chronic 10/2015) Eczema (Chronic 2014) GI bleeding (Chronic 2015) Hypertension (Chronic) Hypothyroidism (Chronic) Nonalcoholic fatty liver disease (Chronic) PTSD (post-traumatic stress disorder) (Chronic 1999) Portal hypertensive gastropathy (Chronic 05/2015) Psoriasis (Chronic 2014) Chicken pox (Resolved) History of blood transfusion (Resolved 10/2015) History of heavy periods (Resolved 2014) Measles (Resolved) Mumps (Resolved) Ovarian cyst (Resolved 2012) Painful menstrual periods (Resolved 2012) Surgical History History of esophagogastroduodenoscopy (EGD) (Resolved 01/2009) History of esophagogastroduodenoscopy (EGD) (Resolved 05/2015) Status post appendectomy (Resolved) Status post colonoscopy (Resolved 01/2009) Status post hernia repair (Resolved) Status post hysteroscopy (Resolved 06/17/11) Status post laparoscopic supracervical hysterectomy (Resolved 08/25/16) Family History Grandfather Heart disease [place] (myocardial infarction) Grandmother Alcoholism Father No problems noted. Mother No problems noted. Grandfather Heart disease Grandmother Colon cancer Brother No problems noted. Social History Smoking Status: Never smoker alcohol intake: current Family History Grandfather Heart disease [place] (myocardial infarction) Grandmother Alcoholism Father No problems noted. Mother No problems noted. Grandfather Heart disease Grandmother Colon cancer Brother No problems noted. Social History Smoking Status: Never smoker alcohol intake: current Exam Initial Vital Signs Initial Vital Signs: Vital Signs Temperature 97.8 F 10/27/18 23:23 Pulse Rate 98 H 10/27/18 23:23 Respiratory Rate 22 10/27/18 23:23 Blood Pressure 154/94 H 10/27/18 23:23 Pulse Oximetry 99 10/27/18 23:23 Const General: cooperative, healthy appearing, comfortable, well developed and well groomed Orientation: alert and awake HENMT Head: normal to inspection and normocephalic Resp Effort & Inspection: normal respiratory effort Skin Lesions: no lesions Rashes: no rashes Neuro General: alert, awake and oriented x3 Cognition: normal cognition Speech: speech normal Extrem General: capillary refill normal Other: Patient with tenderness to palpation of every part of her right shoulder and also with every movement of her right shoulder both active and passive. Psych Appearance: grossly normal and well kempt Course Orders Ordered: ED Orders 10/27/18 23:27 XR shoulder RT min 2V Stat 10/27/18 23:41 Basic Metabolic Panel Stat Complete Blood Count AUTO DIFF Stat Hepatic (Liver) Panel Stat Lipase Stat Vital Signs - 8 hr 10/27/18 23:23 Temperature 97.8 F Pulse Rate 98 H Respiratory Rate 22 Blood Pressure 154/94 H Pulse Oximetry 99 Medical Decision Making Lab Data Lab results reviewed: Yes I reviewed the patient's lab results. Result diagrams: 10/27/18 23:41 10/27/18 23:41 Lab Results 10/27/18 10/27/18 Range/Units 23:41 23:41 WBC 9.7 (4.5-11.0) X10^3/uL RBC 4.56 (4.0-5.2) X10^6/uL Hgb 14.7 (12.0-16.0) g/dL Hct 43.5 (36-46) % MCV 95.5 (80-100) fL MCH 32.3 (26-34) PG MCHC 33.8 (30-36) % RDW 13.5 (11.6-14.8) % Plt Count 192 (150-400) X10^3/uL Neut % (Auto) 52.5 (50-75) % Lymph % (Auto) 38.4 (25-40) % [place]clain % (Auto) 7.0 (3-14) % Eos % (Auto) 1.3 L (2-4) % Baso % (Auto) 0.8 (0-2) % Neut # (Auto) 5100 (1718-1136) /uL Lymph # (Auto) 3700 (7226-8382) /uL [place]clain # (Auto) 700 (0-900) /uL Eos # (Auto) 100 (0-450) /uL Baso # (Auto) 100 (0-100) /uL Sodium 141 (137-145) mmol/L Potassium 4.0 (3.4-5.1) mmol/L Chloride 103 (98-107) mmol/L Carbon Dioxide 22 (22-32) mmol/L BUN 10 (7-17) mg/dL Creatinine 0.60 (0.52-1.04) mg/dL Estimated GFR > 60.0 (>60) mL/min BUN/Creatinine Ratio 16.7 (6-22) Glucose 87 (70-100) mg/dL Calcium 9.8 (8.4-10.2) mg/dL Total Bilirubin 0.5 (0.2-1.3) mg/dL Conjugated Bilirubin 0.0 (0.0-0.3) md/dL Unconjugated Bilirubin 0.4 (0.0-1.1) mg/dL AST 83 H (14-36) IU/L ALT 65 H (9-52) IU/L Alkaline Phosphatase 65 (38-126) U/L Total Protein 8.8 H (6.3-8.2) g/dL Albumin 4.9 (3.5-5.0) g/dL Globulin 3.9 (1.7-4.1) g/dL Albumin/Globulin Ratio 1.3 (1.0-2.8) Lipase 363 H (23-300) U/L Imaging Data X-rays right shoulder: Attestation: I personally reviewed and interpreted this imaging study as follows: My impression: No fractures, no dislocations, no acute pathology MDM Narrative Medical decision making narrative: A suspect musculoskeletal. X-ray is negative. I did inform the patient of her liver function tests. She is here with her son. She left with her son driving. Informed her that she should not drive for the next 24 hours or in the future if she ever takes and alcohol. She is given return precautions. Instructed to follow up with her primary doctor to discuss whether not she needs to go see physical therapy. She expressed understanding and agreement plan Discharge Plan Departure Patient Disposition: Home Clinical Impression: Elevated liver function tests Right shoulder strain Qualifiers: Encounter type: initial encounter Qualified Code(s): S46.911A - Strain of unspecified muscle, fascia and tendon at shoulder and upper arm level, right arm, initial encounter Alcohol intoxication Qualifiers: Complication of substance-induced condition: uncomplicated Qualified Code(s): F10.920 - Alcohol use, unspecified with intoxication, uncomplicated Discharge Date/Time: 10/28/18 00:58 Interventions: ED Discharge Assessment Last Done: 10/28/18 00:25 Instructions: How To Perform RICE (Rest, Ice, Compress, Elevate) Activity Restrictions/Additional Instructions: I recommend that tomorrow you contact your primary care doctor to discuss your shoulder discomfort and also your liver function test. No driving for the next 24 hours or in the future if you partake in intoxicating substances. Return to the emergency department for any new or worsening symptoms Prescriptions: No Action rifaximin [Xifaxan] 550 MG tablet 550 mg PO BID Qty: 60 RF: 11 estradiol 0.025 mg/24 hr patch semiweekly 1 patch Transdermal 2XW Qty: 8 RF: 11 lorazepam 1 mg tablet 1 mg PO DAILY PRN (Reason: Anxiety) Qty: 30 RF: 1 levothyroxine [Synthroid] 25 mcg tablet 25 mcg PO DAILY RF: 0 liothyronine [Cytomel] 5 mcg tablet 10 mcg PO DAILY RF: 0 furosemide [Lasix] 20 mg tablet 20 mg PO QDAY Qty: 30 RF: 0 gabapentin 100 mg capsule 100 mg PO BID Qty: 60 RF: 3 nadolol 20 MG tablet 30 mg PO QDAY RF: 0 spironolactone [Aldactone] 50 MG tablet 100 mg PO QDAY RF: 0 Referrals: Melissa Ortiz ARNP [Primary Care Provider] -
--- NOTE | 2018-10-27 23:27 | DI.RAD.S_ITS ---
PROCEDURE: XR SHOULDER RT MIN 2V INDICATIONS: multiple falls, all over right shoulder pain TECHNIQUE: 3 views of the shoulder were acquired. COMPARISON: None. FINDINGS: Bones: No fractures or dislocations. No suspicious bony lesions. Visualized ribs appear intact. Soft tissues: No suspicious soft tissue calcifications. IMPRESSION: Intact right shoulder. Dictated by: La Sneed M.D. on 10/28/2018 at 8:15 Approved by: La Sneed M.D. on 10/28/2018 at 8:15
[2018-10-27 23:54] LABS: Add Manual Diff / Slide Review NO; Basophils Absolute Auto 100 /uL (0-100); Basophils Percent Auto 0.8 % (0-2); Eosinophils Absolute Auto 100 /uL (0-450); Eosinophils Percent Auto 1.3 % (2-4); Hematocrit 43.5 % (36-46); Hemoglobin 14.7 g/dL (12.0-16.0); Lymphocytes Absolute Auto 3700 /uL (1100-4500); Lymphocytes Percent Auto 38.4 % (25-40); Mean Corpuscular HGB Conc 33.8 % (30-36); Mean Corpuscular Hemoglobin 32.3 PG (26-34); Mean Corpuscular Volume 95.5 fL (80-100); Monocytes Absolute Auto 700 /uL (0-900); Neutrophils Absolute Auto 5100 /uL (1500-7000); Neutrophils Percent Auto 52.5 % (50-75); Platelet Count 192 X10^3/uL (150-400); Red Blood Cell Count 4.56 X10^6/uL (4.0-5.2); Red Cell Distribution Width 13.5 % (11.6-14.8); White Blood Cell Count 9.7 X10^3/uL (4.5-11.0)
[2018-10-28] LABS: Alanine Aminotransferase 65 IU/L (9-52); Albumin 4.9 g/dL (3.5-5.0); Albumin Globulin Ratio 1.3 (1.0-2.8); Alkaline Phosphatase 65 U/L (38-126); Aspartate Aminotransferase 83 IU/L (14-36); BUN Creatinine Ratio 16.7 (6-22); Bilirubin Total 0.5 mg/dL (0.2-1.3); Bilirubin Unconjugated 0.4 mg/dL (0.0-1.1); Blood Urea Nitrogen 10 mg/dL (7-17); Calcium 9.8 mg/dL (8.4-10.2); Carbon Dioxide 22 mmol/L (22-32); Chloride 103 mmol/L (98-107); Estimated Glomerular Filt Rate > 60.0 mL/min (>60); Globulin 3.9 g/dL (1.7-4.1); Glucose 87 mg/dL (70-100); HEMOLYSIS < 15 (0-50); Lipase 363 U/L (23-300); Sodium 141 mmol/L (137-145); Total Protein 8.8 g/dL (6.3-8.2)
== END 2018-10-28 00:58 | disposition home or self-care (01) ==
PROVIDERS: Emergency Provider Emergency Medicine; PCP Registered Nurse
DX: S46.911A Strain of unspecified muscle, fascia and tendon at shoulder and upper arm level, right arm, initial encounter (principal); F10.920 Alcohol use, unspecified with intoxication, uncomplicated
CPT/HCPCS: 36415; 73030; 80048; 80076; 83690; 85025; 99282; 99284

== ENCOUNTER 2018-10-29 23:05 | Emergency (ER) | payer OTHER, MEDICAID, SELFPAY ==
[2018-10-29 23:17] VITALS: BP 132/89; PULSE 97; RESP 14; TEMP 37; O2SAT 97; BMI 20.9
--- NOTE | 2018-10-29 23:18 | ED.PSYCH ---
HPI - Psych General Chief Complaint: Psychiatric Symptoms Stated Complaint: Brought in by police Time Seen by Provider: 10/29/18 23:18 Source: patient and police Mode of arrival: other (Police) Limitations: no limitations History of Present Illness HPI Narrative: Patient is a 58-year-old female who was brought in by the police. It is reported that this evening she has been drinking alcohol this evening. She states that tonight she was sitting on [place] of [place] and she states that she started to slide down the hill in order to go into the water. She states that she was not sure why she wanted to go into the water. She states that she has been in pain. I saw her last evening for right shoulder pain. she also believes that she has ?toxins ?in her system because of her liver issues. She states that when she got alf down the hill she thought ?this is stupid ?so she turned around and went back home and called the crisis line who then called the police who came to her house to bring her in. Upon my evaluation patient gave the history above. She stated that she was not currently suicidal. She denies any other toxic ingestions. She states that she is taking her medications. She stated multiple times that she did not want to hurt herself and that is why she called the crisis line. Related Data Home Medications Medication Instructions Recorded Confirmed nadolol 30 mg PO QDAY 04/23/18 07/28/18 spironolactone [Aldactone] 100 mg PO QDAY 04/23/18 07/28/18 levothyroxine 25 mcg tablet 25 mcg PO DAILY 05/31/18 07/28/18 liothyronine 5 mcg tablet 10 mcg PO DAILY tab 05/31/18 07/28/18 Previous Rx's Medication Instructions Recorded rifaximin [Xifaxan] 550 mg PO BID #60 tab 09/16/16 furosemide 20 mg tablet 20 mg PO QDAY #30 tab 03/02/18 estradiol 0.025 mg/24 hr 1 patch TRANSDERMAL 2XW #8 each 05/21/18 semiweekly transdermal patch gabapentin 100 mg capsule 100 mg PO BID #60 cap 07/28/18 lorazepam 1 mg tablet 1 mg PO DAILY PRN #30 tab 10/20/18 Allergies Allergy/AdvReac Type Severity Reaction Status Date / Time No Known Drug Allergies Allergy Verified 10/29/18 23:17 Review of Systems Constitutional Denies fever(s) and Denies headache(s) ENT Ears, Nose, Mouth, and Throat: Denies vertigo, Denies dizziness and Denies headache(s) Cardiovascular Denies chest pain and Denies dyspnea Respiratory Denies dyspnea Gastrointestinal Gastrointestinal: Denies abdominal pain, Denies nausea and Denies vomiting Genitourinary Denies dysuria Musculoskeletal Reports arthralgias (Right shoulder pain) Integumentary/Breasts Denies rash Neurologic Reports behavioral changes, Denies confusion, Denies vertigo, Denies dizziness and Denies headache(s) Psychiatric Reports behavioral changes, Denies confusion, Denies depression, Denies visual hallucinations, Denies hallucinations, Denies tactile hallucinations, Denies homicidal ideation and Denies suicidal ideation Hematologic/Lymphatic Denies easy bleeding and Denies easy bruising [facility] Medical History Anxiety (Chronic) Cardiac arrhythmia (Chronic) Cirrhosis (Chronic 2012) Coagulation disorder (Chronic 2012) EV (esophageal varices) (Chronic 10/2015) Eczema (Chronic 2014) GI bleeding (Chronic 2015) Hypertension (Chronic) Hypothyroidism (Chronic) Nonalcoholic fatty liver disease (Chronic) PTSD (post-traumatic stress disorder) (Chronic 1999) Portal hypertensive gastropathy (Chronic 05/2015) Psoriasis (Chronic 2014) Chicken pox (Resolved) History of blood transfusion (Resolved 10/2015) History of heavy periods (Resolved 2014) Measles (Resolved) Mumps (Resolved) Ovarian cyst (Resolved 2012) Painful menstrual periods (Resolved 2012) Surgical History History of esophagogastroduodenoscopy (EGD) (Resolved 01/2009) History of esophagogastroduodenoscopy (EGD) (Resolved 05/2015) Status post appendectomy (Resolved) Status post colonoscopy (Resolved 01/2009) Status post hernia repair (Resolved) Status post hysteroscopy (Resolved 06/17/11) Status post laparoscopic supracervical hysterectomy (Resolved 08/25/16) Family History Grandfather Heart disease MD (myocardial infarction) Grandmother Alcoholism Father No problems noted. Mother No problems noted. Grandfather Heart disease Grandmother Colon cancer Brother No problems noted. Social History Smoking Status: Never smoker alcohol intake: current Family History Grandfather Heart disease MD (myocardial infarction) Grandmother Alcoholism Father No problems noted. Mother No problems noted. Grandfather Heart disease Grandmother Colon cancer Brother No problems noted. Social History Smoking Status: Never smoker alcohol intake: current Exam Initial Vital Signs Initial Vital Signs: Vital Signs Temperature 98.6 F 10/29/18 23:17 Pulse Rate 97 H 10/29/18 23:17 Respiratory Rate 14 10/29/18 23:17 Blood Pressure 132/89 10/29/18 23:17 Pulse Oximetry 97 10/29/18 23:17 Const General: cooperative, healthy appearing, comfortable, well developed, well groomed and No acute distress Nutritional Appearance: average body habitus Orientation: alert, awake, oriented x3, oriented to person, oriented to place, oriented to time and not confused Limitations: mental status not altered HENMT Head: normal to inspection and normocephalic Resp Effort & Inspection: normal respiratory effort Cardio Rate: regular rate Skin Rashes: no rashes Neuro General: alert, awake and oriented x3 Cognition: normal cognition Speech: speech normal Gait: normal gait Motor: muscle tone normal throughout Extrem General: normal to inspection Psych Appearance: grossly normal, well kempt and not disheveled Mental Status: mental status grossly normal Speech and Movement: speech and movement normal, not agitated, speech clear, speech not delayed, speech not pressured, movement not slowed and speech not slurred Mood: congruent mood, not anxious, not manic and not paranoid Affect: normal affect, No sad, No animated, No anxious affect, No hostile, No indifferent and No elated Attitude: cooperative, not belligerent, establishes eye contact and answers questions Thought Content: normal and no homicidality Scores GCS Karla coma scale eye opening: Spontaneous Karla coma scale verbal response: Orientated [place] coma scale motor response: Obey commands [place] coma scale total score: 15 Course Orders Ordered: ED Orders 10/29/18 23:38 Acetaminophen Stat Complete Blood Count AUTO DIFF Stat Comprehensive Metabolic Panel Stat Ethanol (ETOH) Stat Lipase Stat Salicylate Stat Thyroid Stimulating Hormone Stat 10/29/18 23:42 Urine Drug Screen, Rapid Stat 10/30/18 01:20 Free T4 Free Thyroxine Stat Vital Signs - 8 hr 10/29/18 23:17 Temperature 98.6 F Pulse Rate 97 H Respiratory Rate 14 Blood Pressure 132/89 Pulse Oximetry 97 MDM - Psych Lab Data Attestation: I reviewed the patient's lab results. Result diagrams: 10/29/18 23:38 10/29/18 23:38 Lab Results 10/29/18 10/29/18 10/29/18 Range/Units 23:38 23:38 23:38 WBC 7.1 (4.5-11.0) X10^3/uL RBC 4.35 (4.0-5.2) X10^6/uL Hgb 14.2 (12.0-16.0) g/dL Hct 40.9 (36-46) % MCV 94.0 (80-100) fL MCH 32.7 (26-34) PG MCHC 34.8 (30-36) % RDW 13.8 (11.6-14.8) % Plt Count 137 L (150-400) X10^3/uL Neut % (Auto) 55.9 (50-75) % Lymph % (Auto) 34.4 (25-40) % [place] % (Auto) 7.6 (3-14) % Eos % (Auto) 1.5 L (2-4) % Baso % (Auto) 0.6 (0-2) % Neut # (Auto) 3900 (6758-7017) /uL Lymph # (Auto) 2400 (7099-7227) /uL [place] # (Auto) 500 (0-900) /uL Eos # (Auto) 100 (0-450) /uL Baso # (Auto) 0 (0-100) /uL Sodium 141 (137-145) mmol/L Potassium 3.8 (3.4-5.1) mmol/L Chloride 104 (98-107) mmol/L Carbon Dioxide 21 L (22-32) mmol/L BUN 13 (7-17) mg/dL Creatinine 0.80 (0.52-1.04) mg/dL Estimated GFR > 60.0 (>60) mL/min BUN/Creatinine Ratio 16.3 (6-22) Glucose 94 (70-100) mg/dL Calcium 9.7 (8.4-10.2) mg/dL Total Bilirubin 0.6 (0.2-1.3) mg/dL AST 86 H (14-36) IU/L ALT 65 H (9-52) IU/L Alkaline Phosphatase 61 (38-126) U/L Total Protein 8.5 H (6.3-8.2) g/dL Albumin 4.8 (3.5-5.0) g/dL Globulin 3.7 (1.7-4.1) g/dL Albumin/Globulin Ratio 1.3 (1.0-2.8) Lipase 403 H (23-300) U/L TSH < 0.02 L (0.47-4.68) uIU/mL Free T4 (0.78-2.19) ng/dL Salicylates < 1.0 (<20) mg/dL Urine Opiates Screen (Negative) Ur Oxycodone Screen (Negative) Urine Methadone Screen (Negative) Acetaminophen < 10 L (10-30) ug/mL Ur Barbiturates Screen (Negative) U Tricyclic Antidepress (Negative) Ur Phencyclidine Scrn (Negative) Ur Amphetamines Screen (Negative) U Methamphetamines Scrn (Negative) Ur MDMA Scrn (Ecstasy) (Negative) U Benzodiazepines Scrn (Negative) Urine Cocaine Screen (Negative) U Marijuana (THC) Screen (Negative) Ethyl Alcohol 268 mg/dL 10/29/18 10/29/18 Range/Units 23:38 23:42 WBC (4.5-11.0) X10^3/uL RBC (4.0-5.2) X10^6/uL Hgb (12.0-16.0) g/dL Hct (36-46) % MCV (80-100) fL MCH (26-34) PG MCHC (30-36) % RDW (11.6-14.8) % Plt Count (150-400) X10^3/uL Neut % (Auto) (50-75) % Lymph % (Auto) (25-40) % [place] % (Auto) (3-14) % Eos % (Auto) (2-4) % Baso % (Auto) (0-2) % Neut # (Auto) (1254-9300) /uL Lymph # (Auto) (0350-8017) /uL [place] # (Auto) (0-900) /uL Eos # (Auto) (0-450) /uL Baso # (Auto) (0-100) /uL Sodium (137-145) mmol/L Potassium (3.4-5.1) mmol/L Chloride (98-107) mmol/L Carbon Dioxide (22-32) mmol/L BUN (7-17) mg/dL Creatinine (0.52-1.04) mg/dL Estimated GFR (>60) mL/min BUN/Creatinine Ratio (6-22) Glucose (70-100) mg/dL Calcium (8.4-10.2) mg/dL Total Bilirubin (0.2-1.3) mg/dL AST (14-36) IU/L ALT (9-52) IU/L Alkaline Phosphatase (38-126) U/L Total Protein (6.3-8.2) g/dL Albumin (3.5-5.0) g/dL Globulin (1.7-4.1) g/dL Albumin/Globulin Ratio (1.0-2.8) Lipase (23-300) U/L TSH (0.47-4.68) uIU/mL Free T4 1.61 (0.78-2.19) ng/dL Salicylates (<20) mg/dL Urine Opiates Screen Negative (Negative) Ur Oxycodone Screen Negative (Negative) Urine Methadone Screen Negative (Negative) Acetaminophen (10-30) ug/mL Ur Barbiturates Screen Negative (Negative) U Tricyclic Antidepress Negative (Negative) Ur Phencyclidine Scrn Negative (Negative) Ur Amphetamines Screen Negative (Negative) U Methamphetamines Scrn Negative (Negative) Ur MDMA Scrn (Ecstasy) Negative (Negative) U Benzodiazepines Scrn Positive H (Negative) Urine Cocaine Screen Negative (Negative) U Marijuana (THC) Screen Positive H (Negative) Ethyl Alcohol mg/dL Point of Care Testing Breathalizer 157 Urine Dip Bedside Urine Glucose Negative Bedside Urine Bilirubin - Negative Bedside Urine Ketone - Negative Urine Specific [place] 1.010 Bedside Urine Occult Blood - Negative Bedside Urine pH 6.0 Bedside Urine Protein - Negative Bedside Urine Urobilinogen - Negative Bedside Urine Nitrite - Negative Bedside Urine Leukocytes - Negative Esterase MDM Narrative Medical decision making narrative: Patient stated that she did not want to hurt herself. She stated that she climbed back up the [place] because she did not want hurt herself and that is why she called the crisis line. She stated that she was very embarrassed that the police had to come to her house and pick her up. She stated that she felt like she did not need admitted to the hospital. Has stated multiple times that she was not suicidal. Had a long discussion with her regarding her symptoms. She stated that she did feel safe at home. She stated that before she would never hurt herself she would contact the crisis line or her therapist or the police. Patient did have an elevated alcohol level upon arrival. Informed her that I could not discharge her home without someone coming to pick her up. The calves are not running. She did not have any family who can come and pick her up. She stated that she did not want to bother any of her friends because it was 0200 hours in the morning. We contacted the police who refused to give her ride home. We repeated a Breathalyzer and she was 0.15. I informed her that she needed to stay with us until she was below the legal limit or if she found someone to come pick her up that she could be discharged. I do not feel that we need to pursue involuntary admission. 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 Also informed her that she needed to contact her therapist on Thursday morning for follow-up. She expressed multiple times that she would not hurt herself and that she would either call the crisis line or call the police or come back to the emergency department. After her Breathalyzer and we informed her that she needed to stay here in the emergency department the patient did elope. Discharge Plan Departure Patient Disposition: Left Against Medical Advice Clinical Impression: Alcohol intoxication Qualifiers: Complication of substance-induced condition: with unspecified complication Qualified Code(s): F10.929 - Alcohol use, unspecified with intoxication, unspecified Prescriptions: No Action rifaximin [Xifaxan] 550 MG tablet 550 mg PO BID Qty: 60 RF: 11 estradiol 0.025 mg/24 hr patch semiweekly 1 patch Transdermal 2XW Qty: 8 RF: 11 lorazepam 1 mg tablet 1 mg PO DAILY PRN (Reason: Anxiety) Qty: 30 RF: 1 levothyroxine [Synthroid] 25 mcg tablet 25 mcg PO DAILY RF: 0 liothyronine [Cytomel] 5 mcg tablet 10 mcg PO DAILY RF: 0 furosemide [Lasix] 20 mg tablet 20 mg PO QDAY Qty: 30 RF: 0 gabapentin 100 mg capsule 100 mg PO BID Qty: 60 RF: 3 nadolol 20 MG tablet 30 mg PO QDAY RF: 0 spironolactone [Aldactone] 50 MG tablet 100 mg PO QDAY RF: 0 Referrals: Melissa Ortiz ARNP [Primary Care Provider] - Stand Alone Forms: Against Medical Advice
[2018-10-29 23:48] LABS: Add Manual Diff / Slide Review NO; Basophils Absolute Auto 0 /uL (0-100); Basophils Percent Auto 0.6 % (0-2); Eosinophils Absolute Auto 100 /uL (0-450); Eosinophils Percent Auto 1.5 % (2-4); Hematocrit 40.9 % (36-46); Hemoglobin 14.2 g/dL (12.0-16.0); Lymphocytes Absolute Auto 2400 /uL (1100-4500); Lymphocytes Percent Auto 34.4 % (25-40); Mean Corpuscular HGB Conc 34.8 % (30-36); Mean Corpuscular Hemoglobin 32.7 PG (26-34); Monocytes Absolute Auto 500 /uL (0-900); Monocytes Percent Auto 7.6 % (3-14); Neutrophils Absolute Auto 3900 /uL (1500-7000); Neutrophils Percent Auto 55.9 % (50-75); Platelet Count 137 X10^3/uL (150-400); Red Blood Cell Count 4.35 X10^6/uL (4.0-5.2); Red Cell Distribution Width 13.8 % (11.6-14.8); White Blood Cell Count 7.1 X10^3/uL (4.5-11.0)
[2018-10-29 23:51] LABS: Urine Amphetamines Negative (Negative); Urine Barbiturates Negative (Negative); Urine Benzodiazepines Positive (Negative); Urine Cocaine Negative (Negative); Urine MDMA Negative (Negative); Urine Methadone Negative (Negative); Urine Methamphetamines Negative (Negative); Urine Morphine/Opi cutoff 2000 Negative (Negative); Urine Oxycodone Negative (Negative); Urine Phencyclidine Negative (Negative); Urine Tetrahydrocannabinol Positive (Negative); Urine Tricyclic Antidepressant Negative (Negative)
[2018-10-29 23:57] LABS: Acetaminophen < 10 ug/mL (10-30); Alanine Aminotransferase 65 IU/L (9-52); Albumin 4.8 g/dL (3.5-5.0); Albumin Globulin Ratio 1.3 (1.0-2.8); Alkaline Phosphatase 61 U/L (38-126); Aspartate Aminotransferase 86 IU/L (14-36); BUN Creatinine Ratio 16.3 (6-22); Bilirubin Total 0.6 mg/dL (0.2-1.3); Blood Urea Nitrogen 13 mg/dL (7-17); Calcium 9.7 mg/dL (8.4-10.2); Carbon Dioxide 21 mmol/L (22-32); Chloride 104 mmol/L (98-107); Estimated Glomerular Filt Rate > 60.0 mL/min (>60); Ethanol (ETOH) 268 mg/dL; Globulin 3.7 g/dL (1.7-4.1); Glucose 94 mg/dL (70-100); HEMOLYSIS < 15 (0-50); Lipase 403 U/L (23-300); Potassium 3.8 mmol/L (3.4-5.1); Salicylate < 1.0 mg/dL (<20); Sodium 141 mmol/L (137-145); Total Protein 8.5 g/dL (6.3-8.2)
[2018-10-30 00:33] LABS: Thyroid Stimulating Hormone < 0.02 uIU/mL (0.47-4.68)
[2018-10-30 01:25] LABS: Free T4, Direct Thyroxine 1.61 ng/dL (0.78-2.19)
--- NOTE | 2018-10-30 02:27 | PC.NURSE ---
Notified provider of poc etoh and returned to room to let pt know what provider plan is and pt was gone. Provider notified. Staff asked provider if we should call 911 and the answer was no, she eloped.
== END 2018-10-30 02:27 | disposition left against medical advice (07) ==
PROVIDERS: Emergency Provider Emergency Medicine; PCP Registered Nurse
DX: F10.929 Alcohol use, unspecified with intoxication, unspecified (principal); Z53.20 Procedure and treatment not carried out because of patient's decision for unspecified reasons
CPT/HCPCS: 36415; 80053; 80305; 80320; 80329; 81003; 82075; 83690; 84439; 84443; 85025; 99282; 99283; G0480

== ENCOUNTER → 2018-11-02 15:13 | Outpatient (CLI) | payer OTHER, MEDICAID, SELFPAY ==
[2018-11-02 19:22] LABS: Free T3, Triiodothyronine Free 5.58 pg/mL (2.77-5.27); Free T4, Direct Thyroxine 1.64 ng/dL (0.78-2.19)
[2018-11-02 19:36] LABS: Thyroid Stimulating Hormone 0.02 uIU/mL (0.47-4.68)
== END ==
PROVIDERS: Family Provider Registered Nurse; PCP Registered Nurse; Visit Provider Internal Medicine Endocrinology, Diabetes & Metabolism
DX: E03.8 Other specified hypothyroidism (principal)
CPT/HCPCS: 36415; 84439; 84443; 84481

== ENCOUNTER → 2018-11-17 16:04 | Outpatient (CLI) | payer OTHER, MEDICAID, SELFPAY ==
--- NOTE | 2018-11-17 16:05 | DI.MG.S_ITS ---
BILATERAL DIGITAL SCREENING MAMMOGRAM 3D/2D WITH CAD: 11/17/2018 CLINICAL: Routine screening. Family history of breast cancer. Comparison is made to exams dated: 12/01/2014 mammogram, 07/10/2010 mammogram, and 06/29/2008 mammogram - [facility]. The tissue of both breasts is heterogeneously dense. This may lower the sensitivity of mammography. Current study was also evaluated with a Computer Aided Detection (CAD) system. No significant masses, calcifications, or other findings are seen in either breast. There has been no significant interval change. IMPRESSION: NEGATIVE There is no mammographic evidence of malignancy. A 1 year screening mammogram is recommended. This exam was interpreted at Station ID: [id number]. NOTE: For mammograms, a report in lay terms will be sent to the patient. Approximately 15% of breast malignancies will not be visualized mammographically. In the management of a palpable breast mass, a negative mammogram must not discourage biopsy of a clinically suspicious lesion. Electronically Signed By: John oropeza/shayan:11/17/2018 19:09:24 letter sent: Normal Exam ACR BI-RADS Category 1: Negative [id number]
== END ==
PROVIDERS: Family Provider Registered Nurse; PCP Registered Nurse; Visit Provider Registered Nurse
DX: Z12.31 Encounter for screening mammogram for malignant neoplasm of breast (principal); Z80.3 Family history of malignant neoplasm of breast
CPT/HCPCS: 77063; 77067

== ENCOUNTER → 2018-11-29 09:49 | Outpatient (CLI) | payer OTHER, MEDICAID, SELFPAY ==
--- NOTE | 2018-11-29 09:51 | DI.RAD.S_ITS ---
PROCEDURE: XR CERVICAL SPINE 2V OR 3V INDICATIONS: Cervical rediculopathy TECHNIQUE: 3 view(s) of the cervical spine were acquired. COMPARISON: None. FINDINGS: Bones: No fractures or dislocations to the C6 level. The lateral masses of C1 appear intact on the odontoid view. No suspicious bony lesions. Straightening of the normal lordotic curvature. Multilevel degenerative endplate sclerosis and spurring. Diffuse facet arthropathy. The disc spaces appear grossly preserved. Soft tissues: No prevertebral soft tissue swelling. IMPRESSION: Mild diffuse cervical spondylosis and facet disease. Straightening of the normal lordotic curvature. Dictated by: Jairo Vega M.D. on 11/29/2018 at 10:50 Approved by: Jairo Vega M.D. on 11/29/2018 at 10:51
== END ==
PROVIDERS: Family Provider Registered Nurse; PCP Registered Nurse; Visit Provider Registered Nurse
DX: M47.22 Other spondylosis with radiculopathy, cervical region (principal)
CPT/HCPCS: 72040

== ENCOUNTER → 2018-12-17 16:06 | Outpatient (CLI) | payer OTHER, MEDICAID, SELFPAY ==
--- NOTE | 2018-12-17 16:08 | DI.MRI.S_ITS ---
PROCEDURE: MR CERVICAL SPINE WO CON INDICATIONS: Right arm radicular pain and numbness TECHNIQUE: Noncontrast sagittal T1 spin echo and T2 fast spin echo, sagittal STIR, foraminal oblique sagittal T2 fast spin echo, and axial gradient echo or T2 fast spin echo through the cervical spine. COMPARISON: [facility], CR, XR CERVICAL SPINE 2V OR 3V, 11/29/2018, 9:54. FINDINGS: Image quality: This examination is limited by involuntary motion artifact. Alignment and Curvature: There is normal bony alignment. Bone Marrow: Marrow demonstrates normal overall signal. Spinal Cord: Visualized spinal cord has normal size and signal. No cerebellar tonsillar herniation. Paraspinous Soft Tissues: No paravertebral masses. Prevertebral soft tissues are normal in thickness. C2-C3: No significant abnormality is seen. C3-C4: The disc height is well-preserved. Loss of disc signal is seen at this level. Mild to moderate disc osteophyte complex is seen. There is mild right-sided and moderate left-sided facet hypertrophy seen. There is moderate bilateral neural foraminal narrowing seen. Mild central canal narrowing is seen. C4-C5: Mild loss of disc height is seen. Loss of disc signal is seen. Mild to moderate disc osteophyte complex is seen. There is a central disc osteophyte protrusion seen. Moderate facet joint hypertrophy is seen. There is moderate to severe right-sided and at least moderate left-sided neural foraminal narrowing seen. Moderate central canal narrowing is seen, with mild mass effect upon the ventral spinal cord. C5-C6: Mild loss of disc height is seen. Loss of disc signal is seen. Moderate to prominent disc osteophyte complex is seen, which is eccentric to the right. Uncovertebral joint hypertrophy is seen at this level. Moderate facet joint hypertrophy is seen. There is moderate to severe right-sided and at least moderate left-sided neural foraminal narrowing seen. Moderate to severe central canal narrowing is seen, with mass effect upon the ventral spinal cord. C6-C7: The disc height is well-preserved. Loss of disc signal is seen at this level. Mild to moderate disc osteophyte complex is seen. There is a mild central disc osteophyte protrusion seen. [id number] facet hypertrophy is seen. There is moderate right-sided and mild left-sided neural foraminal narrowing seen. Mild central canal narrowing is seen. C7-T1: No significant abnormality is seen. IMPRESSION: Multiple levels of cervical spine degenerative change are seen, which are most prominent at C5-C6 level. Dictated by: Rufino Palmer M.D. on 12/17/2018 at 16:43 Approved by: Rufino Palmer M.D. on 12/17/2018 at 16:48
== END ==
PROVIDERS: PCP Registered Nurse; Visit Provider Registered Nurse
DX: M47.22 Other spondylosis with radiculopathy, cervical region (principal); R20.0 Anesthesia of skin
CPT/HCPCS: 72141

== ENCOUNTER → 2018-12-23 12:34 | Outpatient (CLI) | payer OTHER, MEDICAID, SELFPAY ==
[2018-12-23 13:51] LABS: Free T3, Triiodothyronine Free 3.03 pg/mL (2.77-5.27); Free T4, Direct Thyroxine 1.31 ng/dL (0.78-2.19)
[2018-12-23 14:04] LABS: Thyroid Stimulating Hormone 2.53 uIU/mL (0.47-4.68)
== END ==
PROVIDERS: PCP Registered Nurse; Visit Provider Internal Medicine Endocrinology, Diabetes & Metabolism
DX: E03.8 Other specified hypothyroidism (principal)
CPT/HCPCS: 36415; 84439; 84443; 84481

== ENCOUNTER 2018-12-27 05:17 | Emergency (ER) | payer OTHER, MEDICAID, SELFPAY ==
--- NOTE | 2018-12-27 05:27 | ED.ALCOHOL ---
HPI - Alcohol <Emily Maloney DO - Last Filed: 12/28/18 01:09> General Chief Complaint: Toxicology Problem Stated Complaint: cold + etoh Time Seen by Provider: 12/27/18 05:27 Source: patient, EMS and police Mode of arrival: EMS Limitations: no limitations History of Present Illness HPI narrative: Patient is an intoxicated 50-year-old female who presents wanting to get warm. She states she drank continue drinking alcohol would hurt her parents. Apparently her father said some very mean in her full things yesterday. So she drink alcohol into an out to the [place]. She had no intent on killing herself, although police say differently. She does not want to . She does not want to intentionally her parents. She states she has WEST. MD complaint: alcohol intoxication Related Data Home Medications Medication Instructions Recorded Confirmed nadolol 30 mg PO DAILY 04/23/18 12/27/18 liothyronine 5 mcg tablet 10 mcg PO DAILY tab 05/31/18 11/29/18 furosemide [Lasix] 20 mg PO DAILY 12/27/18 12/27/18 lactulose 15 - 30 ml PO 1-2XD 12/27/18 12/27/18 levothyroxine 100 mcg PO DAILY 12/27/18 12/27/18 spironolactone 100 mg PO DAILY 12/27/18 12/27/18 Previous Rx's Medication Instructions Recorded Xifaxan 550 mg PO BID #60 tab 09/16/16 estradiol 0.025 mg/24 hr 1 patch TRANSDERMAL 2XW #8 each 05/21/18 semiweekly transdermal patch lorazepam 1 mg tablet 1 mg PO DAILY PRN #30 tab 10/20/18 gabapentin 100 mg capsule 100 mg PO BID-TID #90 cap 11/02/18 diclofenac 1 % topical gel 2 gram TOP QID PRN #100 gram 11/29/18 Allergies Allergy/AdvReac Type Severity Reaction Status Date / Time No Known Drug Allergies Allergy Verified 11/29/18 09:24 Review of Systems <DO Crystal Correa Last Filed: 12/28/18 01:09> Review of Systems ROS Unobtainable: All systems reviewed & are unremarkable except as noted in HPI and below Constitutional Denies chills, Denies fever(s), Denies lethargy and Denies weakness Eyes Denies change in vision, Denies eye discharge, Denies irritation and Denies loss of vision ENT Ears, Nose, Mouth, and Throat: Denies change in voice, Denies neck pain and Denies sore throat Cardiovascular Denies chest pain, Denies irregular heart rhythm, Denies lightheadedness, Denies palpitations, Denies dyspnea, Denies dyspnea on exertion and Denies orthopnea Respiratory Denies cough, Denies dyspnea, Denies dyspnea on exertion and Denies wheezing Gastrointestinal Gastrointestinal: Denies abdominal pain, Denies change in bowel habits, Denies diarrhea, Denies nausea and Denies vomiting Genitourinary Denies hematuria, Denies flank pain, Denies urinary incontinence and Denies urinary urgency Musculoskeletal Denies neck pain Integumentary/Breasts Denies pruritus, Denies erythema, Denies rash and Denies wounds Neurologic Denies loss of vision and Denies weakness Psychiatric Reports system reviewed and no additional complaints, except as docu and Reports as per HPI Endocrine Denies palpitations Allergic/Immunologic Denies wheezing PFSH <Emily Maloney DO - Last Filed: 12/28/18 01:09> Medical History Anxiety (Chronic) Cardiac arrhythmia (Chronic) Cirrhosis (Chronic 2012) Coagulation disorder (Chronic 2012) EV (esophageal varices) (Chronic 10/2015) Eczema (Chronic 2014) GI bleeding (Chronic 2015) Hypertension (Chronic) Hypothyroidism (Chronic) Nonalcoholic fatty liver disease (Chronic) PTSD (post-traumatic stress disorder) (Chronic 1999) Portal hypertensive gastropathy (Chronic 05/2015) Psoriasis (Chronic 2014) Chicken pox (Resolved) History of blood transfusion (Resolved 10/2015) History of heavy periods (Resolved 2014) Measles (Resolved) Mumps (Resolved) Ovarian cyst (Resolved 2012) Painful menstrual periods (Resolved 2012) Surgical History History of esophagogastroduodenoscopy (EGD) (Resolved 01/2009) History of esophagogastroduodenoscopy (EGD) (Resolved 05/2015) Status post appendectomy (Resolved) Status post colonoscopy (Resolved 01/2009) Status post hernia repair (Resolved) Status post hysteroscopy (Resolved 06/17/11) Status post laparoscopic supracervical hysterectomy (Resolved 08/25/16) Family History Grandfather Heart disease [place] (myocardial infarction) Grandmother Alcoholism Father No problems noted. Mother No problems noted. Grandfather Heart disease Grandmother Colon cancer Brother No problems noted. Social History Smoking Status: Never smoker alcohol intake: current Family History Grandfather Heart disease [place] (myocardial infarction) Grandmother Alcoholism Father No problems noted. Mother No problems noted. Grandfather Heart disease Grandmother Colon cancer Brother No problems noted. Social History Smoking Status: Never smoker alcohol intake: current Exam <Emily Maloney DO - Last Filed: 12/28/18 01:09> Initial Vital Signs Initial Vital Signs: Vital Signs Temperature 97.8 F 12/27/18 05:28 Pulse Rate 97 H 12/27/18 05:28 Respiratory Rate 18 12/27/18 05:28 Blood Pressure 167/109 H 12/27/18 05:28 Pulse Oximetry 97 12/27/18 05:28 GENERAL: Alert female no acute distress HEENT: Head atraumatic,EOMI, pupils reactive CARDIOVASCULAR: Regular rate and rhythm without murmurs, rubs or gallops. RESPIRATORY: Breath sounds equal bilaterally, no wheezes rales or rhonchi. ABDOMEN: Soft, nontender. Normoactive bowel sounds all 4 quadrants. No guarding or rebound. EXTREMITIES: Normal range of motion, no clubbing or edema. Neurovascularly intact NEUROLOGICAL: Alert and oriented x4.Normal gait and speech. Cranial nerves II through XII grossly intact. SKIN: cool extremities no rashes no petechiae Psych: Tearful good hygiene answers questions good eye contact <Tima Nelson DO - Last Filed: 12/27/18 11:42> Initial Vital Signs Initial Vital Signs: Vital Signs Temperature 97.8 F 12/27/18 05:28 Pulse Rate 97 H 12/27/18 05:28 Respiratory Rate 18 12/27/18 05:28 Blood Pressure 167/109 H 12/27/18 05:28 Pulse Oximetry 97 12/27/18 05:28 Course <Emily Maloney DO Crystal Last Filed: 12/28/18 01:09> Orders Ordered: ED Orders 12/27/18 05:44 Complete Blood Count AUTO DIFF Stat Comprehensive Metabolic Panel Stat Ethanol (ETOH) Stat Thyroid Stimulating Hormone Stat 12/27/18 07:46 Consult to Evidence Technician Stat 12/27/18 08:01 Urine Drug Screen, Rapid Stat 12/27/18 08:50 CT head/brain wo con Stat 12/27/18 08:51 CT cervical spine wo con Stat Vital Signs - 8 hr 12/27/18 05:28 12/27/18 05:36 12/27/18 07:00 Temperature 97.8 F Pulse Rate 97 H 110 H 82 Respiratory Rate 18 16 Blood Pressure 167/109 H Blood Pressure [Right Arm] 119/80 111/80 Pulse Oximetry 97 97 12/27/18 11:33 Temperature Pulse Rate 81 Respiratory Rate 17 Blood Pressure Blood Pressure [Right Arm] 118/80 Pulse Oximetry 97 <Tima Nelson DO - Last Filed: 12/27/18 11:42> Orders Ordered: ED Orders 12/27/18 05:44 Complete Blood Count AUTO DIFF Stat Comprehensive Metabolic Panel Stat Ethanol (ETOH) Stat Thyroid Stimulating Hormone Stat 12/27/18 07:46 Consult to Evidence Technician Stat 12/27/18 08:01 Urine Drug Screen, Rapid Stat 12/27/18 08:50 CT head/brain wo con Stat 12/27/18 08:51 CT cervical spine wo con Stat Vital Signs - 8 hr 12/27/18 05:28 12/27/18 05:36 12/27/18 07:00 Temperature 97.8 F Pulse Rate 97 H 110 H 82 Respiratory Rate 18 16 Blood Pressure 167/109 H Blood Pressure [Right Arm] 119/80 111/80 Pulse Oximetry 97 97 12/27/18 11:33 Temperature Pulse Rate 81 Respiratory Rate 17 Blood Pressure Blood Pressure [Right Arm] 118/80 Pulse Oximetry 97 MDM - Alcohol <DO Crystal Correa Last Filed: 12/28/18 01:09> Lab Data Attestation: I reviewed the patient's lab results. Result diagrams: 12/27/18 05:44 12/27/18 05:44 Labs: Lab Results 12/27/18 12/27/18 12/27/18 Range/Units 05:44 05:44 05:44 WBC 7.8 (4.5-11.0) X10^3/uL RBC 4.52 (4.0-5.2) X10^6/uL Hgb 15.1 (12.0-16.0) g/dL Hct 43.9 (36-46) % MCV 97.1 (80-100) fL MCH 33.5 (26-34) PG MCHC 34.5 (30-36) % RDW 15.2 H (11.6-14.8) % Plt Count 165 (150-400) X10^3/uL Neut % (Auto) 52.9 (50-75) % Lymph % (Auto) 36.1 (25-40) % Dickens % (Auto) 8.7 (3-14) % Eos % (Auto) 1.6 L (2-4) % Baso % (Auto) 0.7 (0-2) % Neut # (Auto) 4100 (9343-1659) /uL Lymph # (Auto) 2800 (2085-6141) /uL Dickens # (Auto) 700 (0-900) /uL Eos # (Auto) 100 (0-450) /uL Baso # (Auto) 100 (0-100) /uL Sodium 146 H (137-145) mmol/L Potassium 4.3 (3.4-5.1) mmol/L Chloride 108 H (98-107) mmol/L Carbon Dioxide 21 L (22-32) mmol/L BUN 16 (7-17) mg/dL Creatinine 0.60 (0.52-1.04) mg/dL Estimated GFR > 60.0 (>60) mL/min BUN/Creatinine Ratio 26.7 H (6-22) Glucose 102 H (70-100) mg/dL Calcium 10.4 H (8.4-10.2) mg/dL Total Bilirubin 0.7 (0.2-1.3) mg/dL AST 137 H (14-36) IU/L ALT 114 H (9-52) IU/L Alkaline Phosphatase 66 (38-126) U/L Total Protein 9.0 H (6.3-8.2) g/dL Albumin 5.0 (3.5-5.0) g/dL Globulin 4.0 (1.7-4.1) g/dL Albumin/Globulin Ratio 1.3 (1.0-2.8) TSH 4.78 H D (0.47-4.68) uIU/mL Urine Opiates Screen (Negative) Ur Oxycodone Screen (Negative) Urine Methadone Screen (Negative) Ur Barbiturates Screen (Negative) U Tricyclic Antidepress (Negative) Ur Phencyclidine Scrn (Negative) Ur Amphetamines Screen (Negative) U Methamphetamines Scrn (Negative) Ur MDMA Scrn (Ecstasy) (Negative) U Benzodiazepines Scrn (Negative) Urine Cocaine Screen (Negative) U Marijuana (THC) Screen (Negative) Ethyl Alcohol 392 mg/dL 12/27/18 Range/Units 08:01 WBC (4.5-11.0) X10^3/uL RBC (4.0-5.2) X10^6/uL Hgb (12.0-16.0) g/dL Hct (36-46) % MCV (80-100) fL MCH (26-34) PG MCHC (30-36) % RDW (11.6-14.8) % Plt Count (150-400) X10^3/uL Neut % (Auto) (50-75) % Lymph % (Auto) (25-40) % Dickens % (Auto) (3-14) % Eos % (Auto) (2-4) % Baso % (Auto) (0-2) % Neut # (Auto) (3640-6462) /uL Lymph # (Auto) (6332-8483) /uL Dickens # (Auto) (0-900) /uL Eos # (Auto) (0-450) /uL Baso # (Auto) (0-100) /uL Sodium (137-145) mmol/L Potassium (3.4-5.1) mmol/L Chloride (98-107) mmol/L Carbon Dioxide (22-32) mmol/L BUN (7-17) mg/dL Creatinine (0.52-1.04) mg/dL Estimated GFR (>60) mL/min BUN/Creatinine Ratio (6-22) Glucose (70-100) mg/dL Calcium (8.4-10.2) mg/dL Total Bilirubin (0.2-1.3) mg/dL AST (14-36) IU/L ALT (9-52) IU/L Alkaline Phosphatase (38-126) U/L Total Protein (6.3-8.2) g/dL Albumin (3.5-5.0) g/dL Globulin (1.7-4.1) g/dL Albumin/Globulin Ratio (1.0-2.8) TSH (0.47-4.68) uIU/mL Urine Opiates Screen Negative (Negative) Ur Oxycodone Screen Negative (Negative) Urine Methadone Screen Negative (Negative) Ur Barbiturates Screen Negative (Negative) U Tricyclic Antidepress Negative (Negative) Ur Phencyclidine Scrn Negative (Negative) Ur Amphetamines Screen Negative (Negative) U Methamphetamines Scrn Negative (Negative) Ur MDMA Scrn (Ecstasy) Negative (Negative) U Benzodiazepines Scrn Positive H (Negative) Urine Cocaine Screen Negative (Negative) U Marijuana (THC) Screen Negative (Negative) Ethyl Alcohol mg/dL MDM Narrative Medical decision making narrative: Patient signed out to day shift provider Dr. Nelson for further medical treatment. <Tima Nelson, DO - Last Filed: 12/27/18 11:42> Lab Data Labs: Lab Results 12/27/18 12/27/18 12/27/18 Range/Units 05:44 05:44 05:44 WBC 7.8 (4.5-11.0) X10^3/uL RBC 4.52 (4.0-5.2) X10^6/uL Hgb 15.1 (12.0-16.0) g/dL Hct 43.9 (36-46) % MCV 97.1 (80-100) fL MCH 33.5 (26-34) PG MCHC 34.5 (30-36) % RDW 15.2 H (11.6-14.8) % Plt Count 165 (150-400) X10^3/uL Neut % (Auto) 52.9 (50-75) % Lymph % (Auto) 36.1 (25-40) % Dickens % (Auto) 8.7 (3-14) % Eos % (Auto) 1.6 L (2-4) % Baso % (Auto) 0.7 (0-2) % Neut # (Auto) 4100 (0683-3965) /uL Lymph # (Auto) 2800 (2832-5384) /uL Dickens # (Auto) 700 (0-900) /uL Eos # (Auto) 100 (0-450) /uL Baso # (Auto) 100 (0-100) /uL Sodium 146 H (137-145) mmol/L Potassium 4.3 (3.4-5.1) mmol/L Chloride 108 H (98-107) mmol/L Carbon Dioxide 21 L (22-32) mmol/L BUN 16 (7-17) mg/dL Creatinine 0.60 (0.52-1.04) mg/dL Estimated GFR > 60.0 (>60) mL/min BUN/Creatinine Ratio 26.7 H (6-22) Glucose 102 H (70-100) mg/dL Calcium 10.4 H (8.4-10.2) mg/dL Total Bilirubin 0.7 (0.2-1.3) mg/dL AST 137 H (14-36) IU/L ALT 114 H (9-52) IU/L Alkaline Phosphatase 66 (38-126) U/L Total Protein 9.0 H (6.3-8.2) g/dL Albumin 5.0 (3.5-5.0) g/dL Globulin 4.0 (1.7-4.1) g/dL Albumin/Globulin Ratio 1.3 (1.0-2.8) TSH 4.78 H D (0.47-4.68) uIU/mL Urine Opiates Screen (Negative) Ur Oxycodone Screen (Negative) Urine Methadone Screen (Negative) Ur Barbiturates Screen (Negative) U Tricyclic Antidepress (Negative) Ur Phencyclidine Scrn (Negative) Ur Amphetamines Screen (Negative) U Methamphetamines Scrn (Negative) Ur MDMA Scrn (Ecstasy) (Negative) U Benzodiazepines Scrn (Negative) Urine Cocaine Screen (Negative) U Marijuana (THC) Screen (Negative) Ethyl Alcohol 392 mg/dL 12/27/18 Range/Units 08:01 WBC (4.5-11.0) X10^3/uL RBC (4.0-5.2) X10^6/uL Hgb (12.0-16.0) g/dL Hct (36-46) % MCV (80-100) fL MCH (26-34) PG MCHC (30-36) % RDW (11.6-14.8) % Plt Count (150-400) X10^3/uL Neut % (Auto) (50-75) % Lymph % (Auto) (25-40) % Dickens % (Auto) (3-14) % Eos % (Auto) (2-4) % Baso % (Auto) (0-2) % Neut # (Auto) (4326-3153) /uL Lymph # (Auto) (1016-9904) /uL Dickens # (Auto) (0-900) /uL Eos # (Auto) (0-450) /uL Baso # (Auto) (0-100) /uL Sodium (137-145) mmol/L Potassium (3.4-5.1) mmol/L Chloride (98-107) mmol/L Carbon Dioxide (22-32) mmol/L BUN (7-17) mg/dL Creatinine (0.52-1.04) mg/dL Estimated GFR (>60) mL/min BUN/Creatinine Ratio (6-22) Glucose (70-100) mg/dL Calcium (8.4-10.2) mg/dL Total Bilirubin (0.2-1.3) mg/dL AST (14-36) IU/L ALT (9-52) IU/L Alkaline Phosphatase (38-126) U/L Total Protein (6.3-8.2) g/dL Albumin (3.5-5.0) g/dL Globulin (1.7-4.1) g/dL Albumin/Globulin Ratio (1.0-2.8) TSH (0.47-4.68) uIU/mL Urine Opiates Screen Negative (Negative) Ur Oxycodone Screen Negative (Negative) Urine Methadone Screen Negative (Negative) Ur Barbiturates Screen Negative (Negative) U Tricyclic Antidepress Negative (Negative) Ur Phencyclidine Scrn Negative (Negative) Ur Amphetamines Screen Negative (Negative) U Methamphetamines Scrn Negative (Negative) Ur MDMA Scrn (Ecstasy) Negative (Negative) U Benzodiazepines Scrn Positive H (Negative) Urine Cocaine Screen Negative (Negative) U Marijuana (THC) Screen Negative (Negative) Ethyl Alcohol mg/dL Imaging Data CT scan - head: Radiologist's impression: [address] [address] [address] Scan Report Signed Patient: Kristen Castle TMR#: [id number] : 1960Acct:[id number] Age/Sex: 58 / FDate of Service: 12/27/18 Loc: ED Accession Number: [id number] Procedure: CT head/brain wo con Ordering Provider: Tima Nelson D.O. PROCEDURE: CT HEAD/BRAIN WO CON INDICATIONS: Fell and hit head while intoxicated TECHNIQUE: Noncontrast 4.5 mm thick angled axial sections acquired from the foramen magnum to the vertex, with coronal and sagittal reformats. For radiation dose reduction, the following was used: automated exposure control, adjustment of mA and/or kV according to patient size. COMPARISON: [facility], CT, HEAD WITHOUT CONTRAST, 01/08/2011, 11:03. [facility], CT, CT CERVICAL SPINE WO CON, 12/27/2018, 8:55. [facility], CT, HEAD WITHOUT CONTRAST, 05/20/2011, 15:54. FINDINGS: Image quality: Excellent. CSF spaces: Basal cisterns are patent. No extra-axial fluid collections. Ventricles are normal in size and shape. Brain: No midline shift. No intracranial masses or hemorrhage. Rich-white matter interface is normal. Skull and face: Calvarium and visualized facial bones are intact, without suspicious lesions. Sinuses: Visualized sinuses and mastoids are clear. IMPRESSION: Normal intracranial study, without acute intracranial hemorrhage. No displaced calvarial fracture can be seen. Dictated by: Rufino Palmer M.D. on 12/27/2018 at 8:13 Approved by: Rufino Palmer M.D. on 12/27/2018 at 8:14 CT cervical spine: Radiologist's impression: Kristen Castle T 58 F 1960 [address] [address] [address] Scan Report Signed Patient: Kristen Castle TMR#: [id number] : 1960Acct:[id number] Age/Sex: 58 / FDate of Service: 12/27/18 Loc: ED Accession Number: [id number] Procedure: CT cervical spine wo con Ordering Provider: Tima Nelson D.O. PROCEDURE: CT CERVICAL SPINE WO CON INDICATIONS: Fall with head injury while intoxicated TECHNIQUE: Noncontrast 3 mm thick sections acquired from the skull base to the T4 level. Sagittal and coronal reformats were then constructed. For radiation dose reduction, the following was used: automated exposure control, adjustment of mA and/or kV according to patient size. COMPARISON: [facility], MR, MR CERVICAL SPINE WO CON, 12/17/2018, 16:35. [facility], CR, XR CERVICAL SPINE 2V OR 3V, 11/29/2018, 9:54. [facility], CT, CT HEAD/BRAIN WO CON, 12/27/2018, 8:55. [facility], CT, C-SPINE WITHOUT CONTRAST, 05/20/2011, 15:54. FINDINGS: Image quality: Diagnostic, with note made of motion artifact. Bones: No fractures or dislocations. Visualized superior ribs are intact. Moderate degenerative changes are seen. Soft tissues: Prevertebral soft tissues are normal in thickness. No paravertebral hematomas. No apical pneumothoraces. IMPRESSION: No acute fracture. Dictated by: Rufino Palmer M.D. on 12/27/2018 at 8:14 Approved by: Rufino Palmer M.D. on 12/27/2018 at 8:16 MDM Narrative Medical decision making narrative: Received turned over from evening provider. Reviewed patient's history and physical and labs. Perform my own history and physical exam. Patient was able to ambulate to the bathroom however was fairly unsteady on her feet. She did state that she remembers falling and hitting her head. She does have a small amount of dried blood on the back of her head however no underlying skin issues. The head CT and cervical spine CT were unremarkable. She did discuss her situations with her social services counselor here in the emergency department was provided with multiple resources. She was informed of her elevated liver enzymes in the importance of following up with her primary provider. Will hold on further workup for now. She was discharged under the care of family who was at bedside. Patient was instructed that she cannot drive for the next 24 hours. She expressed understanding and agreement with plan. Discharge Plan Departure Patient Disposition: Home Clinical Impression: Alcoholic intoxication Qualifiers: Complication of substance-induced condition: with unspecified complication Qualified Code(s): F10.929 - Alcohol use, unspecified with intoxication, unspecified Discharge Date/Time: 12/27/18 11:46 Interventions: ED Discharge Assessment Last Done: 12/27/18 11:45 Instructions: DI for Alcohol Abuse Activity Restrictions/Additional Instructions: No driving for the next 24 hours or in the future if you partake in intoxicating substances. I do recommend that you use the resources that you were given by the social services counselor to help with counseling and your alcohol use. Contact your primary care doctor for follow-up. Return to the emergency department for any new or worsening symptoms Prescriptions: No Action Xifaxan 550 MG tablet 550 mg PO BID Qty: 60 RF: 11 estradiol 0.025 mg/24 hr patch semiweekly 1 patch Transdermal 2XW Qty: 8 RF: 11 lorazepam 1 mg tablet 1 mg PO DAILY PRN (Reason: Anxiety) Qty: 30 RF: 1 liothyronine [Cytomel] 5 mcg tablet 10 mcg PO DAILY RF: 0 gabapentin 100 mg capsule 100 mg PO BID-TID Qty: 90 RF: 3 diclofenac sodium 1 % gel 2 gram TOP QID PRN (Reason: pain) Qty: 100 RF: 0 nadolol 20 MG tablet 30 mg PO DAILY RF: 0 spironolactone 100 mg tablet 100 mg PO DAILY RF: 0 levothyroxine 100 mcg tablet 100 mcg PO DAILY RF: 0 lactulose 10 gram/15 mL solution 15 - 30 ml PO 1-2XD RF: 0 furosemide [Lasix] 20 mg tablet 20 mg PO DAILY RF: 0 Referrals: Melissa Ortiz ARNP [Primary Care Provider] -
[2018-12-27 05:28] VITALS: BP 167/109; PULSE 97; RESP 18; TEMP 36.6; O2SAT 97; BMI 21.1
[2018-12-27 05:36] VITALS: BP 119/80; PULSE 110
[2018-12-27 05:55] LABS: Add Manual Diff / Slide Review NO; Basophils Absolute Auto 100 /uL (0-100); Basophils Percent Auto 0.7 % (0-2); Eosinophils Absolute Auto 100 /uL (0-450); Eosinophils Percent Auto 1.6 % (2-4); Hematocrit 43.9 % (36-46); Hemoglobin 15.1 g/dL (12.0-16.0); Lymphocytes Absolute Auto 2800 /uL (1100-4500); Lymphocytes Percent Auto 36.1 % (25-40); Mean Corpuscular HGB Conc 34.5 % (30-36); Mean Corpuscular Hemoglobin 33.5 PG (26-34); Mean Corpuscular Volume 97.1 fL (80-100); Monocytes Absolute Auto 700 /uL (0-900); Monocytes Percent Auto 8.7 % (3-14); Neutrophils Absolute Auto 4100 /uL (1500-7000); Neutrophils Percent Auto 52.9 % (50-75); Platelet Count 165 X10^3/uL (150-400); Red Blood Cell Count 4.52 X10^6/uL (4.0-5.2); Red Cell Distribution Width 15.2 % (11.6-14.8); White Blood Cell Count 7.8 X10^3/uL (4.5-11.0)
--- NOTE | 2018-12-27 06:03 | PC.NURSE ---
drawn my tanesha from lab
[2018-12-27 06:11] LABS: Alanine Aminotransferase 114 IU/L (9-52); Albumin Globulin Ratio 1.3 (1.0-2.8); Alkaline Phosphatase 66 U/L (38-126); Aspartate Aminotransferase 137 IU/L (14-36); BUN Creatinine Ratio 26.7 (6-22); Bilirubin Total 0.7 mg/dL (0.2-1.3); Blood Urea Nitrogen 16 mg/dL (7-17); Calcium 10.4 mg/dL (8.4-10.2); Carbon Dioxide 21 mmol/L (22-32); Chloride 108 mmol/L (98-107); Estimated Glomerular Filt Rate > 60.0 mL/min (>60); Glucose 102 mg/dL (70-100); HEMOLYSIS < 15 (0-50); Potassium 4.3 mmol/L (3.4-5.1); Sodium 146 mmol/L (137-145)
[2018-12-27 06:18] LABS: Ethanol (ETOH) 392 mg/dL
[2018-12-27 06:46] LABS: Thyroid Stimulating Hormone 4.78 uIU/mL (0.47-4.68)
[2018-12-27 07:00] VITALS: BP 111/80; PULSE 82; RESP 16; O2SAT 97
--- NOTE | 2018-12-27 07:36 | PC.NURSE ---
Assisted patient to restroom. Requesting to go home. Informed patient provider will touch base with her and we will establish a plan for her.
--- NOTE | 2018-12-27 07:57 | PC.NURSE ---
Offered patient breakfast she declined. Patient tearful my heart is just broken. I living in an aging house with aging parents. My father said some very hurtful things Patient states she can't go home right now as she is just too heartbroken. Patient states she was sober when the argument took place with her parents and she just got so upset she packed her bags. I went to [employer] bought some wine and sat in the [place]. I know that isn't reasonable to live in the [place] expresses remembering thinking about jumping off the cliffs but denies the urge to do so currently. I know I have a beautiful life I am just heartbroken right now Patient agreeable to speak to social work.
[2018-12-27 08:10] LABS: Urine Amphetamines Negative (Negative); Urine Barbiturates Negative (Negative); Urine Benzodiazepines Positive (Negative); Urine Cocaine Negative (Negative); Urine MDMA Negative (Negative); Urine Methadone Negative (Negative); Urine Methamphetamines Negative (Negative); Urine Morphine/Opi cutoff 2000 Negative (Negative); Urine Oxycodone Negative (Negative); Urine Phencyclidine Negative (Negative); Urine Tetrahydrocannabinol Negative (Negative); Urine Tricyclic Antidepressant Negative (Negative)
--- NOTE | 2018-12-27 08:47 | PC.NURSE ---
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 I just remembered I hit my head Upon evaluation of patients head, old dry blood present on right occipital region of head with hematoma appreciated. Patient reports headache. I have drank before but never felt this goofy. Feels like someone lite a stick of dynamite in my head Patient thinks she fell and hit her head on a rock and beleives she might of had positive LOC. C collar placed and provider aware.
--- NOTE | 2018-12-27 08:50 | DI.CT.S_ITS ---
PROCEDURE: CT HEAD/BRAIN WO CON INDICATIONS: Fell and hit head while intoxicated TECHNIQUE: Noncontrast 4.5 mm thick angled axial sections acquired from the foramen magnum to the vertex, with coronal and sagittal reformats. For radiation dose reduction, the following was used: automated exposure control, adjustment of mA and/or kV according to patient size. COMPARISON: [facility], CT, HEAD WITHOUT CONTRAST, 01/08/2011, 11:03. [facility], CT, CT CERVICAL SPINE WO CON, 12/27/2018, 8:55. [facility], CT, HEAD WITHOUT CONTRAST, 05/20/2011, 15:54. FINDINGS: Image quality: Excellent. CSF spaces: Basal cisterns are patent. No extra-axial fluid collections. Ventricles are normal in size and shape. Brain: No midline shift. No intracranial masses or hemorrhage. Rich-white matter interface is normal. Skull and face: Calvarium and visualized facial bones are intact, without suspicious lesions. Sinuses: Visualized sinuses and mastoids are clear. IMPRESSION: Normal intracranial study, without acute intracranial hemorrhage. No displaced calvarial fracture can be seen. Dictated by: Rufino Palmer M.D. on 12/27/2018 at 8:13 Approved by: Rufino Palmer M.D. on 12/27/2018 at 8:14
--- NOTE | 2018-12-27 08:51 | DI.CT.S_ITS ---
PROCEDURE: CT CERVICAL SPINE WO CON INDICATIONS: Fall with head injury while intoxicated TECHNIQUE: Noncontrast 3 mm thick sections acquired from the skull base to the T4 level. Sagittal and coronal reformats were then constructed. For radiation dose reduction, the following was used: automated exposure control, adjustment of mA and/or kV according to patient size. COMPARISON: [facility], MR, MR CERVICAL SPINE WO CON, 12/17/2018, 16:35. [facility], CR, XR CERVICAL SPINE 2V OR 3V, 11/29/2018, 9:54. [facility], CT, CT HEAD/BRAIN WO CON, 12/27/2018, 8:55. [facility], CT, C-SPINE WITHOUT CONTRAST, 05/20/2011, 15:54. FINDINGS: Image quality: Diagnostic, with note made of motion artifact. Bones: No fractures or dislocations. Visualized superior ribs are intact. Moderate degenerative changes are seen. Soft tissues: Prevertebral soft tissues are normal in thickness. No paravertebral hematomas. No apical pneumothoraces. IMPRESSION: No acute fracture. Dictated by: Rufino Palmer M.D. on 12/27/2018 at 8:14 Approved by: Rufino Palmer M.D. on 12/27/2018 at 8:16
--- NOTE | 2018-12-27 10:20 | PC.NURSE ---
Social Work at bedside.
[2018-12-27 11:33] VITALS: BP 118/80; PULSE 81; RESP 17; O2SAT 97
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
== END 2018-12-27 11:46 | disposition home or self-care (01) ==
PROVIDERS: Emergency Medicine; Emergency Provider Emergency Medicine; PCP Registered Nurse
DX: F10.929 Alcohol use, unspecified with intoxication, unspecified (principal); S09.90XA Unspecified injury of head, initial encounter; W19.XXXA Unspecified fall, initial encounter
CPT/HCPCS: 36415; 70450; 72125; 80053; 80305; 80320; 84443; 85025; 99283; 99284

== ENCOUNTER 2019-02-10 14:30 | Outpatient (RCR) | payer OTHER, MEDICAID, SELFPAY ==
--- NOTE | 2019-01-07 16:00 | PT.OIE ---
Current Diagnoses Pain in right shoulder (01/07/19) Radiculopathy, cervical region (01/07/19) Past Medical History (Last Reviewed 12/27/18 @ 06:04 by Emily Maloney DO) Anxiety (Chronic) Cardiac arrhythmia (Chronic) Cirrhosis (Chronic 2012) Coagulation disorder (Chronic 2012) EV (esophageal varices) (Chronic 10/2015) Eczema (Chronic 2014) GI bleeding (Chronic 2015) Hypertension (Chronic) Hypothyroidism (Chronic) Nonalcoholic fatty liver disease (Chronic) PTSD (post-traumatic stress disorder) (Chronic 1999) Portal hypertensive gastropathy (Chronic 05/2015) Psoriasis (Chronic 2014) Chicken pox (Resolved) History of blood transfusion (Resolved 10/2015) History of heavy periods (Resolved 2014) Measles (Resolved) Mumps (Resolved) Ovarian cyst (Resolved 2012) Painful menstrual periods (Resolved 2012) Past Surgical History (Last Reviewed 12/27/18 @ 06:04 by Emily Maloney DO) History of esophagogastroduodenoscopy (EGD) (Resolved 01/2009) History of esophagogastroduodenoscopy (EGD) (Resolved 05/2015) Status post appendectomy (Resolved) Status post colonoscopy (Resolved 01/2009) Status post hernia repair (Resolved) Status post hysteroscopy (Resolved 06/17/11) Status post laparoscopic supracervical hysterectomy (Resolved 08/25/16) Provider Visit Care Team Role Provider Type HARJEET Peters Attending Provider Advanced Civil Cad Designer Primary Care Provider Specialty: Medical Address: [address] [place] [address], [facility] Email: Physical Therapy Initial Evaluation PT-OP-A Visit Information Start: 01/07/19 12:33 Freq: Status: Active Protocol: Document 01/07/19 13:00 AMB (Rec: 01/10/19 08:24 AMB [email or web address]) Out-Patient Physical Therapy Visit Information Visit Information Visit Type Initial Evaluation Visit Start Time 13:00 Visit Stop Time 13:45 Total Visit Minutes 45 Visit Number 1 PT-OP-B Current Condition Start: 01/07/19 12:33 Freq: Status: Active Protocol: Document 01/07/19 13:00 AMB (Rec: 01/10/19 08:54 AMB [email or web address]) Current Condition History of Current Condition Onset Date 3 months ago Current Complaints neck pain that radiates into the right arm and hand History of Current Condition Pt reports she has had some right shoulder pain/ neck pain , but 3 months ago it became significantly worse with radiating numbness and tingling into the right dorsum of the hand, not really into the fingers. Worst with cervical extension, yard work. Pt has liver disease so cannot take many pain medications. Did fracture her ribs 8 months ago in a fall. Prior Treatments and Tests MRI noted multiple levels of degenerative changes, worst at C5-6: moderate-severe foraminal narrowing on the right. Moderate-severe central canal narrowing. Future Testing and Treatments Planned Seeing ortho next week Treatment Goals Patient/Caregiver Goals reduce pain so that she can do yardwork Prior Functional Status Baseline Function- ADL's Independent Baseline Function- Mobility Independent Current Functional Impairments (Reported) Functional Limitations- ADL's Sleep is diminished due to pain, difficulty carrying lifting due to pain Functional Limitations- Recreation/ limited with yardwork Hobbies Personal Factors Other Personal Factors That May Effect hypothyroid, mental health Therapy/Recovery history of alcohol abuse and prior suicidal ideation PT-OP-C Subjective Start: 01/07/19 12:33 Freq: Status: Active Protocol: Document 01/07/19 13:00 AMB (Rec: 01/10/19 08:24 AMB [email or web address]) Patient Questionnaires Quick Dash- Upper Extremity Quick Dash UE Score 50 Quick Dash UE Impairment 40 to 59% Impaired (Score 40- 59) OP-PT Pain Assessment Location Right Neck Pain Location Details neck and into right shoulder Intensity 5 Scale Used Numeric (1 - 10) Description Burning Radiating Tingling With Movement Radiating Location into dorsum of hand Pain Aggravating Factors Activity Other Pain Aggravating Factors neck extension PT-OP-J Posture/Palpation/Skin Start: 01/07/19 12:33 Freq: Status: Active Protocol: Document 01/07/19 13:00 AMB (Rec: 01/10/19 08:36 AMB [email or web address]) Posture Evaluation Comments Posture Comments forward head Palpation Assessment Location One Palpation Location cervical spine Palpation Findings Soft Tissue Tightness Muscle Guarding Tenderness PT-OP-K Range of Motion Start: 01/07/19 12:33 Freq: Status: Active Protocol: Document 01/07/19 13:00 AMB (Rec: 01/10/19 08:43 AMB [email or web address]) Cervical Spine Range of Motion Cervical Spine Active Degrees Testing Position Sitting Flexion 60 Extension 25 Rotation Left 65 Rotation Right 68 Lateral Flexion Left 27 Lateral Flexion Right 34 Comments pain reproduced with extension and right sidebending Shoulder Goniometric Range of Motion Shoulder ROM Limitations Comments WFL bilaterally PT-OP-L Special Tests Start: 01/07/19 12:33 Freq: Status: Active Protocol: Document 01/07/19 13:00 AMB (Rec: 01/10/19 08:43 AMB [email or web address]) Special Tests Cervical Spine Special Tests Spurling's Test Test Results positive on the right PT-OP-M Strength Start: 01/07/19 12:33 Freq: Status: Active Protocol: Document 01/07/19 13:00 AMB (Rec: 01/10/19 08:43 AMB [email or web address]) Hand Surface Water Manager/Pinch Strength Hand Dominance Hand Dominance Right Hand Strength Right Surface Water Manager (lbs) 55 Left Surface Water Manager (lbs) 45 PT-OP-Q Treatments Start: 01/07/19 12:33 Freq: Status: Active Protocol: Document 01/07/19 13:00 AMB (Rec: 01/10/19 09:07 AMB [email or web address]) Therapeutic Exercises Standing Exercises 2 Standing Exercise Name chin tuck Reps/Minutes 5x5 Comments focus on posterior lengthening 1 Standing Exercise Name doorway stretch Reps/Minutes 30x2 Comments pecs PT-OP-T Assessment and Plan Start: 01/07/19 12:33 Freq: Status: Active Protocol: Document 01/07/19 13:00 AMB (Rec: 01/10/19 09:06 AMB [email or web address]) Physical Therapy Assessment Rehab Potential Rehabilitation Potential Good Evaluation Complexity Number of Personal Factors/Comorbidities 1-2 Number of Body Systems Impaired 4 or More Clinical Presentation at Evaluation Stable Impairments Impairments Activity Tolerance Pain Posture ROM Sensation Strength Goals Two Impairment ADLs Short Term Goal (STG) Kristen will lift 10 pounds with good body mechanics without numbness/tingling in her arm. STG Duration 4 weeks Floor Coverings Installer Goal (LTG) Kristen will get down on the ground with good body mechanics to weed for 10 minutes without numbness/ tingling in her arm. LTG Duration 8 weeks One Impairment ROM Short Term Goal (STG) Kristen will improve her sidebending AROM to 40 degrees bilaterally without pain. STG Duration 4 weeks Floor Coverings Installer Goal (LTG) Kristen will improve her extension AROM to 40 degrees of extension without pain. LTG Duration 8 weeks Assessment Summary Assessment Kristen attends physical therapy with right sided radicular neck pain. She is limited in her ability to move her neck without numbness/tingling in her right arm that limits her ability to move, do yardwork, and sleep. She is seeing an orthopedist next week, considering her central cord compression as seen on MRI. She will benefit from postural exercises, and possible traction, but we will need to be careful regarding the number of visits she uses due to insurance restrictions depending on what she decides with the orthopedist. Physical Therapy Plan Frequency and Duration Frequency of Treatment 2x/Week Duration of Treatment 8 weeks Plan of Care Start Date 01/07/19 Plan of Care End Date 03/04/19 Therapeutic Interventions Therapeutic Interventions Home Exercise Program Manual Therapy Neuromuscular Re-education Self-Care/Home Management Therapeutic Activities Therapeutic Exercises Modalities Cold Pack/Ice Massage Electric Stimulation Hot Packs Traction- Mechanical Next Visit Focus/Plan Next Note Type Treatment Note Next Visit Plan Progress postural exercises, avoiding extension for now
--- NOTE | 2019-01-07 16:01 | PT.OPPOC ---
Current Diagnoses Pain in right shoulder (01/07/19) Radiculopathy, cervical region (01/07/19) Provider Visit Care Team Role Provider Type HARJEET Peters Attending Provider Advanced Saw Repairer Primary Care Provider Specialty: Medical Address: [facility] [place] [address], [id number] Email: Plan Of Care PT-OP-T Assessment and Plan Start: 01/07/19 12:33 Freq: Status: Active Protocol: Document 01/07/19 13:00 AMB (Rec: 01/10/19 09:06 AMB [email or web address]) Physical Therapy Assessment Rehab Potential Rehabilitation Potential Good Evaluation Complexity Number of Personal Factors/Comorbidities 1-2 Number of Body Systems Impaired 4 or More Clinical Presentation at Evaluation Stable Impairments Impairments Activity Tolerance Pain Posture ROM Sensation Strength Goals Two Impairment ADLs Short Term Goal (STG) Kristen will lift 10 pounds with good body mechanics without numbness/tingling in her arm. STG Duration 4 weeks Fermenting Cellars Receiver Goal (LTG) Kristen will get down on the ground with good body mechanics to weed for 10 minutes without numbness/ tingling in her arm. LTG Duration 8 weeks One Impairment ROM Short Term Goal (STG) Kristen will improve her sidebending AROM to 40 degrees bilaterally without pain. STG Duration 4 weeks Mcc Goal (LTG) Kristen will improve her extension AROM to 40 degrees of extension without pain. LTG Duration 8 weeks Assessment Summary Assessment Kristen attends physical therapy with right sided radicular neck pain. She is limited in her ability to move her neck without numbness/tingling in her right arm that limits her ability to move, do yardwork, and sleep. She is seeing an orthopedist next week, considering her central cord compression as seen on MRI. She will benefit from postural exercises, and possible traction, but we will need to be careful regarding the number of visits she uses due to insurance restrictions depending on what she decides with the orthopedist. Physical Therapy Plan Frequency and Duration Frequency of Treatment 2x/Week Duration of Treatment 8 weeks Plan of Care Start Date 01/07/19 Plan of Care End Date 03/04/19 Therapeutic Interventions Therapeutic Interventions Home Exercise Program Manual Therapy Neuromuscular Re-education Self-Care/Home Management Therapeutic Activities Therapeutic Exercises Modalities Cold Pack/Ice Massage Electric Stimulation Hot Packs Traction- Mechanical Next Visit Focus/Plan Next Note Type Treatment Note Next Visit Plan Progress postural exercises, avoiding extension for now Plan of Care Dates Plan of Care Start Date 01/07/19 Plan of Care End Date 03/04/19 Please Sign and Return: I have reviewed this Plan of Care and certify that the skilled therapy services above are required to meet the patient?s needs. Physician Signature Date Printed Name and Credentials Clinical Instructor Signature Printed Name and Credentials
--- NOTE | 2019-01-11 16:00 | PT.OTN ---
Current Diagnoses Pain in right shoulder (01/11/19) Radiculopathy, cervical region (01/11/19) Physical Therapy Treatment Note PT-OP-A Visit Information Start: 01/07/19 12:33 Freq: Status: Active Protocol: Document 01/11/19 13:00 AMB (Rec: 01/11/19 13:36 AMB [id number]) Out-Patient Physical Therapy Visit Information Visit Information Visit Type Treatment Note Visit Start Time 13:00 Visit Stop Time 13:45 Total Visit Minutes 45 Visit Number 2 PT-OP-B Current Condition Start: 01/07/19 12:33 Freq: Status: Active Protocol: Document 01/07/19 13:00 AMB (Rec: 01/10/19 08:54 AMB [email or web address]) Current Condition History of Current Condition Onset Date 3 months ago Current Complaints neck pain that radiates into the right arm and hand History of Current Condition Pt reports she has had some right shoulder pain/ neck pain , but 3 months ago it became significantly worse with radiating numbness and tingling into the right dorsum of the hand, not really into the fingers. Worst with cervical extension, yard work. Pt has liver disease so cannot take many pain medications. Did fracture her ribs 8 months ago in a fall. Prior Treatments and Tests MRI noted multiple levels of degenerative changes, worst at C5-6: moderate-severe foraminal narrowing on the right. Moderate-severe central canal narrowing. Future Testing and Treatments Planned Seeing ortho next week Treatment Goals Patient/Caregiver Goals reduce pain so that she can do yardwork Prior Functional Status Baseline Function- ADL's Independent Baseline Function- Mobility Independent Current Functional Impairments (Reported) Functional Limitations- ADL's Sleep is diminished due to pain, difficulty carrying lifting due to pain Functional Limitations- Recreation/ limited with yardwork Hobbies Personal Factors Other Personal Factors That May Effect hypothyroid, mental health Therapy/Recovery history of alcohol abuse and prior suicidal ideation PT-OP-C Subjective Start: 01/07/19 12:33 Freq: Status: Active Protocol: Document 01/11/19 13:00 AMB (Rec: 01/11/19 13:36 AMB [id number]) OP-PT Subjective Patient Comments Patient Comments Pt helped her daughter move yesterday so she is a little sore from that. She is seeing the orthopedist next week or the week after. PT-OP-J Posture/Palpation/Skin Start: 01/07/19 12:33 Freq: Status: Active Protocol: Document 01/07/19 13:00 AMB (Rec: 01/10/19 08:36 AMB [email or web address]) Posture Evaluation Comments Posture Comments forward head Palpation Assessment Location One Palpation Location cervical spine Palpation Findings Soft Tissue Tightness Muscle Guarding Tenderness PT-OP-K Range of Motion Start: 01/07/19 12:33 Freq: Status: Active Protocol: Document 01/07/19 13:00 AMB (Rec: 01/10/19 08:43 AMB [email or web address]) Cervical Spine Range of Motion Cervical Spine Active Degrees Testing Position Sitting Flexion 60 Extension 25 Rotation Left 65 Rotation Right 68 Lateral Flexion Left 27 Lateral Flexion Right 34 Comments pain reproduced with extension and right sidebending Shoulder Goniometric Range of Motion Shoulder ROM Limitations Comments WFL bilaterally PT-OP-L Special Tests Start: 01/07/19 12:33 Freq: Status: Active Protocol: Document 01/07/19 13:00 AMB (Rec: 01/10/19 08:43 AMB [email or web address]) Special Tests Cervical Spine Special Tests Spurling's Test Test Results positive on the right PT-OP-M Strength Start: 01/07/19 12:33 Freq: Status: Active Protocol: Document 01/07/19 13:00 AMB (Rec: 01/10/19 08:43 AMB [email or web address]) Hand Mutuel Clerk/Pinch Strength Hand Dominance Hand Dominance Right Hand Strength Right Mutuel Clerk (lbs) 55 Left Mutuel Clerk (lbs) 45 PT-OP-Q Treatments Start: 01/07/19 12:33 Freq: Status: Active Protocol: Document 01/11/19 13:00 AMB (Rec: 01/12/19 07:21 AMB [email or web address]) Therapeutic Exercises Supine Exercises 1 Supine Exercise Name supine chin tuck Reps/Minutes 5x10 Comments with physical cues for form Sidelying Exercises 1 Sidelying Exercise Name shoulder ER AROM Reps/Minutes 10 Comments increased shoulder pain Sitting Exercises 2 Sitting Exercise Name posterior shoulder rolls Reps/Minutes 15 1 Sitting Exercise Name ulnar and radial nerve glides Comments no change in sx Manual Therapy Treatment Soft Tissue Mobilization 1 Body Location cervical spine Mobilization Type Myofascial Release Intensity/Depth Moderate Comments suboccipital release, paraspinals, right scapular musculature Manual Traction Cervical Body Position Hooklying Reps/Duration 30x2 PT-OP-R Modalities Start: 01/11/19 13:38 Freq: Status: Active Protocol: Document 01/11/19 13:38 AMB (Rec: 01/11/19 13:39 AMB [id number]) Spinal Traction Traction Treatment Cervical Method Mechanical Static Patient Position Hooklying Force Applied (Pounds) 20 Duration of Treatment (Minutes) 10 PT-OP-T Assessment and Plan Start: 01/07/19 12:33 Freq: Status: Active Protocol: Document 01/11/19 13:00 AMB (Rec: 01/11/19 13:38 AMB [id number]) Physical Therapy Assessment Assessment Summary Assessment Pt tolerated manual therapy and exercise well, although numbness/tingling is continuing. Physical Therapy Plan Next Visit Focus/Plan Next Note Type Treatment Note Next Visit Plan Progress postural exercises, avoiding extension for now
--- NOTE | 2019-01-19 13:42 | PT.OTN ---
Current Diagnoses Pain in right shoulder (01/19/19) Radiculopathy, cervical region (01/19/19) Physical Therapy Treatment Note PT-OP-A Visit Information Start: 01/07/19 12:33 Freq: Status: Active Protocol: Document 01/19/19 13:36 SA (Rec: 01/19/19 13:42 SA [email or web address]) Out-Patient Physical Therapy Visit Information Visit Information Visit Type Treatment Note Visit Start Time 13:00 Visit Stop Time 13:45 Total Visit Minutes 45 Visit Number 3 PT-OP-B Current Condition Start: 01/07/19 12:33 Freq: Status: Active Protocol: Document 01/07/19 13:00 AMB (Rec: 01/10/19 08:54 AMB [email or web address]) Current Condition History of Current Condition Onset Date 3 months ago Current Complaints neck pain that radiates into the right arm and hand History of Current Condition Pt reports she has had some right shoulder pain/ neck pain , but 3 months ago it became significantly worse with radiating numbness and tingling into the right dorsum of the hand, not really into the fingers. Worst with cervical extension, yard work. Pt has liver disease so cannot take many pain medications. Did fracture her ribs 8 months ago in a fall. Prior Treatments and Tests MRI noted multiple levels of degenerative changes, worst at C5-6: moderate-severe foraminal narrowing on the right. Moderate-severe central canal narrowing. Future Testing and Treatments Planned Seeing ortho next week Treatment Goals Patient/Caregiver Goals reduce pain so that she can do yardwork Prior Functional Status Baseline Function- ADL's Independent Baseline Function- Mobility Independent Current Functional Impairments (Reported) Functional Limitations- ADL's Sleep is diminished due to pain, difficulty carrying lifting due to pain Functional Limitations- Recreation/ limited with yardwork Hobbies Personal Factors Other Personal Factors That May Effect hypothyroid, mental health Therapy/Recovery history of alcohol abuse and prior suicidal ideation PT-OP-C Subjective Start: 01/07/19 12:33 Freq: Status: Active Protocol: Document 01/19/19 13:36 SA (Rec: 01/19/19 13:42 SA [email or web address]) OP-PT Subjective Patient Comments Patient Comments Pt states that the mecahnincal pressure helped, she had less zinging down her arm. PT-OP-J Posture/Palpation/Skin Start: 01/07/19 12:33 Freq: Status: Active Protocol: Document 01/07/19 13:00 AMB (Rec: 01/10/19 08:36 AMB [email or web address]) Posture Evaluation Comments Posture Comments forward head Palpation Assessment Location One Palpation Location cervical spine Palpation Findings Soft Tissue Tightness Muscle Guarding Tenderness PT-OP-K Range of Motion Start: 01/07/19 12:33 Freq: Status: Active Protocol: Document 01/07/19 13:00 AMB (Rec: 01/10/19 08:43 AMB [email or web address]) Cervical Spine Range of Motion Cervical Spine Active Degrees Testing Position Sitting Flexion 60 Extension 25 Rotation Left 65 Rotation Right 68 Lateral Flexion Left 27 Lateral Flexion Right 34 Comments pain reproduced with extension and right sidebending Shoulder Goniometric Range of Motion Shoulder ROM Limitations Comments WFL bilaterally PT-OP-L Special Tests Start: 01/07/19 12:33 Freq: Status: Active Protocol: Document 01/07/19 13:00 AMB (Rec: 01/10/19 08:43 AMB [email or web address]) Special Tests Cervical Spine Special Tests Spurling's Test Test Results positive on the right PT-OP-M Strength Start: 01/07/19 12:33 Freq: Status: Active Protocol: Document 01/07/19 13:00 AMB (Rec: 01/10/19 08:43 AMB [email or web address]) Hand Crayon Painter/Pinch Strength Hand Dominance Hand Dominance Right Hand Strength Right Crayon Painter (lbs) 55 Left Crayon Painter (lbs) 45 PT-OP-Q Treatments Start: 01/07/19 12:33 Freq: Status: Active Protocol: Document 01/19/19 13:36 SA (Rec: 01/19/19 13:42 SA [email or web address]) Therapeutic Exercises Supine Exercises 1 Supine Exercise Name supine chin tuck Reps/Minutes 5x10 Comments with physical cues for form Sidelying Exercises 1 Sidelying Exercise Name shoulder ER AROM Reps/Minutes 10 Comments increased shoulder pain Sitting Exercises 2 Sitting Exercise Name posterior shoulder rolls Reps/Minutes 15 1 Sitting Exercise Name ulnar and radial nerve glides Standing Exercises 1 Standing Exercise Name doorway stretch Reps/Minutes 30x2 Comments pecs Manual Therapy Treatment Soft Tissue Mobilization 1 Body Location cervical spine Mobilization Type Myofascial Release Intensity/Depth Moderate Comments suboccipital release, paraspinals, right scapular musculature Manual Traction Cervical Body Position Hooklying Reps/Duration 30x2 PT-OP-R Modalities Start: 01/11/19 13:38 Freq: Status: Active Protocol: Document 01/19/19 13:36 SA (Rec: 01/19/19 13:42 SA [email or web address]) Spinal Traction Traction Treatment Cervical Method Mechanical Static Patient Position Hooklying Force Applied (Pounds) 20 Duration of Treatment (Minutes) 10 PT-OP-T Assessment and Plan Start: 01/07/19 12:33 Freq: Status: Active Protocol: Document 01/19/19 13:36 SA (Rec: 01/19/19 13:42 [email or web address]) Physical Therapy Assessment Assessment Summary Assessment Pt tolerating manual therapy and exercises well, trying to do less in the garden to help manage symptoms as well. Physical Therapy Plan Next Visit Focus/Plan Next Note Type Treatment Note Next Visit Plan Progress postural exercises, avoiding extension for now
--- NOTE | 2019-01-26 15:51 | PT.OTN ---
Current Diagnoses Pain in right shoulder (01/26/19) Radiculopathy, cervical region (01/26/19) Physical Therapy Treatment Note PT-OP-A Visit Information Start: 01/07/19 12:33 Freq: Status: Active Protocol: Document 01/26/19 15:47 EA (Rec: 01/26/19 15:50 EA [id number]) Out-Patient Physical Therapy Visit Information Visit Information Visit Type Treatment Note Visit Start Time 15:15 Visit Stop Time 16:00 Total Visit Minutes 45 Visit Number 4 PT-OP-B Current Condition Start: 01/07/19 12:33 Freq: Status: Active Protocol: Document 01/07/19 13:00 AMB (Rec: 01/10/19 08:54 AMB [email or web address]) Current Condition History of Current Condition Onset Date 3 months ago Current Complaints neck pain that radiates into the right arm and hand History of Current Condition Pt reports she has had some right shoulder pain/ neck pain , but 3 months ago it became significantly worse with radiating numbness and tingling into the right dorsum of the hand, not really into the fingers. Worst with cervical extension, yard work. Pt has liver disease so cannot take many pain medications. Did fracture her ribs 8 months ago in a fall. Prior Treatments and Tests MRI noted multiple levels of degenerative changes, worst at C5-6: moderate-severe foraminal narrowing on the right. Moderate-severe central canal narrowing. Future Testing and Treatments Planned Seeing ortho next week Treatment Goals Patient/Caregiver Goals reduce pain so that she can do yardwork Prior Functional Status Baseline Function- ADL's Independent Baseline Function- Mobility Independent Current Functional Impairments (Reported) Functional Limitations- ADL's Sleep is diminished due to pain, difficulty carrying lifting due to pain Functional Limitations- Recreation/ limited with yardwork Hobbies Personal Factors Other Personal Factors That May Effect hypothyroid, mental health Therapy/Recovery history of alcohol abuse and prior suicidal ideation PT-OP-C Subjective Start: 01/07/19 12:33 Freq: Status: Active Protocol: Document 01/26/19 15:50 EA (Rec: 01/26/19 15:50 EA [id number]) OP-PT Subjective Patient Comments Patient Comments Traction helps my neck a lot Patient Reported Progress Improving PT-OP-J Posture/Palpation/Skin Start: 01/07/19 12:33 Freq: Status: Active Protocol: Document 01/07/19 13:00 AMB (Rec: 01/10/19 08:36 AMB [email or web address]) Posture Evaluation Comments Posture Comments forward head Palpation Assessment Location One Palpation Location cervical spine Palpation Findings Soft Tissue Tightness Muscle Guarding Tenderness PT-OP-K Range of Motion Start: 01/07/19 12:33 Freq: Status: Active Protocol: Document 01/07/19 13:00 AMB (Rec: 01/10/19 08:43 AMB [email or web address]) Cervical Spine Range of Motion Cervical Spine Active Degrees Testing Position Sitting Flexion 60 Extension 25 Rotation Left 65 Rotation Right 68 Lateral Flexion Left 27 Lateral Flexion Right 34 Comments pain reproduced with extension and right sidebending Shoulder Goniometric Range of Motion Shoulder ROM Limitations Comments WFL bilaterally PT-OP-L Special Tests Start: 01/07/19 12:33 Freq: Status: Active Protocol: Document 01/07/19 13:00 AMB (Rec: 01/10/19 08:43 AMB [email or web address]) Special Tests Cervical Spine Special Tests Spurling's Test Test Results positive on the right PT-OP-M Strength Start: 01/07/19 12:33 Freq: Status: Active Protocol: Document 01/07/19 13:00 AMB (Rec: 01/10/19 08:43 AMB [email or web address]) Hand Manager Support/Pinch Strength Hand Dominance Hand Dominance Right Hand Strength Right Manager Support (lbs) 55 Left Manager Support (lbs) 45 PT-OP-Q Treatments Start: 01/07/19 12:33 Freq: Status: Active Protocol: Document 01/26/19 15:47 EA (Rec: 01/26/19 15:50 EA [id number]) Therapeutic Exercises Supine Exercises 2 Supine Exercise Name Neck flexion AROM Reps/Minutes x 10 reps 1 Supine Exercise Name supine chin tuck Reps/Minutes 5x10 Comments with physical cues for form Sidelying Exercises 1 Sidelying Exercise Name shoulder ER AROM Reps/Minutes 10 Comments increased shoulder pain Sitting Exercises 2 Sitting Exercise Name posterior shoulder rolls Reps/Minutes 15 1 Sitting Exercise Name ulnar and radial nerve glides Standing Exercises 1 Standing Exercise Name doorway stretch Reps/Minutes 30x2 Comments pecs Manual Therapy Treatment Soft Tissue Mobilization 1 Body Location cervical spine Mobilization Type Myofascial Release Intensity/Depth Moderate Comments suboccipital release, paraspinals, right scapular musculature Manual Traction Cervical Body Position Hooklying Reps/Duration 30x5 PT-OP-R Modalities Start: 01/11/19 13:38 Freq: Status: Active Protocol: Document 01/26/19 15:47 EA (Rec: 01/26/19 15:50 EA [id number]) Spinal Traction Traction Treatment Cervical Method Mechanical Static Patient Position Hooklying Force Applied (Pounds) 20 Duration of Treatment (Minutes) 10 PT-OP-T Assessment and Plan Start: 01/07/19 12:33 Freq: Status: Active Protocol: Document 01/26/19 15:47 EA (Rec: 01/26/19 15:50 EA [id number]) Physical Therapy Assessment Assessment Summary Assessment No c/o pain or discomfort during therex. Patient tolerated traction well. Physical Therapy Plan Next Visit Focus/Plan Next Note Type Treatment Note Next Visit Plan Progress postural exercises, avoiding extension for now. Increased traction time by 5 mins as able
--- NOTE | 2019-02-03 12:03 | PT.OTN ---
Current Diagnoses Pain in right shoulder (02/03/19) Radiculopathy, cervical region (02/03/19) Physical Therapy Treatment Note PT-OP-A Visit Information Start: 01/07/19 12:33 Freq: Status: Active Protocol: Document 02/03/19 09:45 AMB (Rec: 02/03/19 09:48 AMB [email or web address]) Out-Patient Physical Therapy Visit Information Visit Information Visit Type Treatment Note Visit Start Time 09:45 Visit Stop Time 10:30 Total Visit Minutes 45 Visit Number 5 PT-OP-B Current Condition Start: 01/07/19 12:33 Freq: Status: Active Protocol: Document 01/07/19 13:00 AMB (Rec: 01/10/19 08:54 AMB [email or web address]) Current Condition History of Current Condition Onset Date 3 months ago Current Complaints neck pain that radiates into the right arm and hand History of Current Condition Pt reports she has had some right shoulder pain/ neck pain , but 3 months ago it became significantly worse with radiating numbness and tingling into the right dorsum of the hand, not really into the fingers. Worst with cervical extension, yard work. Pt has liver disease so cannot take many pain medications. Did fracture her ribs 8 months ago in a fall. Prior Treatments and Tests MRI noted multiple levels of degenerative changes, worst at C5-6: moderate-severe foraminal narrowing on the right. Moderate-severe central canal narrowing. Future Testing and Treatments Planned Seeing ortho next week Treatment Goals Patient/Caregiver Goals reduce pain so that she can do yardwork Prior Functional Status Baseline Function- ADL's Independent Baseline Function- Mobility Independent Current Functional Impairments (Reported) Functional Limitations- ADL's Sleep is diminished due to pain, difficulty carrying lifting due to pain Functional Limitations- Recreation/ limited with yardwork Hobbies Personal Factors Other Personal Factors That May Effect hypothyroid, mental health Therapy/Recovery history of alcohol abuse and prior suicidal ideation PT-OP-C Subjective Start: 01/07/19 12:33 Freq: Status: Active Protocol: Document 02/03/19 09:45 AMB (Rec: 02/03/19 09:48 AMB [email or web address]) OP-PT Subjective Patient Comments Patient Comments Pt reports her neck is feeling much better and she has been doing lots of yardwork and can sometimes ignore it. She does still feel it with R sidebending and extension. PT-OP-J Posture/Palpation/Skin Start: 01/07/19 12:33 Freq: Status: Active Protocol: Document 01/07/19 13:00 AMB (Rec: 01/10/19 08:36 AMB [email or web address]) Posture Evaluation Comments Posture Comments forward head Palpation Assessment Location One Palpation Location cervical spine Palpation Findings Soft Tissue Tightness Muscle Guarding Tenderness PT-OP-K Range of Motion Start: 01/07/19 12:33 Freq: Status: Active Protocol: Document 01/07/19 13:00 AMB (Rec: 01/10/19 08:43 AMB [email or web address]) Cervical Spine Range of Motion Cervical Spine Active Degrees Testing Position Sitting Flexion 60 Extension 25 Rotation Left 65 Rotation Right 68 Lateral Flexion Left 27 Lateral Flexion Right 34 Comments pain reproduced with extension and right sidebending Shoulder Goniometric Range of Motion Shoulder ROM Limitations Comments WFL bilaterally PT-OP-L Special Tests Start: 01/07/19 12:33 Freq: Status: Active Protocol: Document 01/07/19 13:00 AMB (Rec: 01/10/19 08:43 AMB [email or web address]) Special Tests Cervical Spine Special Tests Spurling's Test Test Results positive on the right PT-OP-M Strength Start: 01/07/19 12:33 Freq: Status: Active Protocol: Document 01/07/19 13:00 AMB (Rec: 01/10/19 08:43 AMB [email or web address]) Hand Risk Consulting Treasury Director/Pinch Strength Hand Dominance Hand Dominance Right Hand Strength Right Risk Consulting Treasury Director (lbs) 55 Left Risk Consulting Treasury Director (lbs) 45 PT-OP-Q Treatments Start: 01/07/19 12:33 Freq: Status: Active Protocol: Document 02/03/19 09:00 AMB (Rec: 02/03/19 12:02 AMB [email or web address]) Therapeutic Exercises Supine Exercises 1 Supine Exercise Name supine chin tuck Reps/Minutes 5x10 Comments with physical cues for form Sitting Exercises 2 Sitting Exercise Name posterior shoulder rolls Reps/Minutes 15 Standing Exercises 2 Standing Exercise Name low rows Reps/Minutes #2, 2x10 1 Standing Exercise Name doorway stretch Reps/Minutes 30x2 Comments pecs Manual Therapy Treatment Soft Tissue Mobilization 1 Body Location cervical spine Mobilization Type Myofascial Release Intensity/Depth Moderate Comments suboccipital release, paraspinals, right scapular musculature Manual Traction Cervical Body Position Hooklying Reps/Duration 30x5 PT-OP-R Modalities Start: 01/11/19 13:38 Freq: Status: Active Protocol: Document 02/03/19 09:00 AMB (Rec: 02/03/19 12:02 AMB [email or web address]) Spinal Traction Traction Treatment Cervical Method Mechanical Static Patient Position Hooklying Force Applied (Pounds) 22 Duration of Treatment (Minutes) 9 Heating Pad Applied No PT-OP-T Assessment and Plan Start: 01/07/19 12:33 Freq: Status: Active Protocol: Document 02/03/19 09:00 AMB (Rec: 02/03/19 12:02 AMB [email or web address]) Physical Therapy Assessment Assessment Summary Assessment Pt's sx have improved a lot. Tolerating more yardwork and activity with less pain. Feels that traction is very helpful. Continued to educate in posture and body mechanics with yardwork. Physical Therapy Plan Next Visit Focus/Plan Next Note Type Treatment Note Next Visit Plan Follow up with vendor if insurance would pay for traction home unit
--- NOTE | 2019-02-10 16:00 | PT.OTN ---
Current Diagnoses Pain in right shoulder (02/10/19) Radiculopathy, cervical region (02/10/19) Physical Therapy Treatment Note PT-OP-A Visit Information Start: 01/07/19 12:33 Freq: Status: Active Protocol: Document 02/10/19 14:30 AMB (Rec: 02/10/19 14:40 AMB [id number]) Out-Patient Physical Therapy Visit Information Visit Information Visit Type Treatment Note Visit Start Time 14:30 Visit Stop Time 15:15 Total Visit Minutes 45 Visit Number 6 PT-OP-B Current Condition Start: 01/07/19 12:33 Freq: Status: Active Protocol: Document 01/07/19 13:00 AMB (Rec: 01/10/19 08:54 AMB [email or web address]) Current Condition History of Current Condition Onset Date 3 months ago Current Complaints neck pain that radiates into the right arm and hand History of Current Condition Pt reports she has had some right shoulder pain/ neck pain , but 3 months ago it became significantly worse with radiating numbness and tingling into the right dorsum of the hand, not really into the fingers. Worst with cervical extension, yard work. Pt has liver disease so cannot take many pain medications. Did fracture her ribs 8 months ago in a fall. Prior Treatments and Tests MRI noted multiple levels of degenerative changes, worst at C5-6: moderate-severe foraminal narrowing on the right. Moderate-severe central canal narrowing. Future Testing and Treatments Planned Seeing ortho next week Treatment Goals Patient/Caregiver Goals reduce pain so that she can do yardwork Prior Functional Status Baseline Function- ADL's Independent Baseline Function- Mobility Independent Current Functional Impairments (Reported) Functional Limitations- ADL's Sleep is diminished due to pain, difficulty carrying lifting due to pain Functional Limitations- Recreation/ limited with yardwork Hobbies Personal Factors Other Personal Factors That May Effect hypothyroid, mental health Therapy/Recovery history of alcohol abuse and prior suicidal ideation PT-OP-C Subjective Start: 01/07/19 12:33 Freq: Status: Active Protocol: Document 02/10/19 14:30 AMB (Rec: 02/14/19 16:00 AMB [email or web address]) OP-PT Subjective Patient Comments Patient Comments Kristen has been very happy with her improvement so far, but does feel that she would like to keep her chart open until she meets with a surgeon to see what they have to say, because of insurance limitations, we will not see her until that happens so that she still has some PT visits remaining if she elects to have surgery. PT-OP-J Posture/Palpation/Skin Start: 01/07/19 12:33 Freq: Status: Active Protocol: Document 01/07/19 13:00 AMB (Rec: 01/10/19 08:36 AMB [email or web address]) Posture Evaluation Comments Posture Comments forward head Palpation Assessment Location One Palpation Location cervical spine Palpation Findings Soft Tissue Tightness Muscle Guarding Tenderness PT-OP-K Range of Motion Start: 01/07/19 12:33 Freq: Status: Active Protocol: Document 02/10/19 14:43 AMB (Rec: 02/10/19 14:44 AMB [id number]) Cervical Spine Range of Motion Cervical Spine Active Degrees Extension 60 Rotation Left 65 Rotation Right 70 Lateral Flexion Left 25 Lateral Flexion Right 35 PT-OP-L Special Tests Start: 01/07/19 12:33 Freq: Status: Active Protocol: Document 01/07/19 13:00 AMB (Rec: 01/10/19 08:43 AMB [email or web address]) Special Tests Cervical Spine Special Tests Spurling's Test Test Results positive on the right PT-OP-M Strength Start: 01/07/19 12:33 Freq: Status: Active Protocol: Document 01/07/19 13:00 AMB (Rec: 01/10/19 08:43 AMB [email or web address]) Hand Tenon Machine Operator/Pinch Strength Hand Dominance Hand Dominance Right Hand Strength Right Tenon Machine Operator (lbs) 55 Left Tenon Machine Operator (lbs) 45 PT-OP-Q Treatments Start: 01/07/19 12:33 Freq: Status: Active Protocol: Document 02/10/19 14:30 AMB (Rec: 02/14/19 16:00 AMB [email or web address]) Therapeutic Exercises Sitting Exercises 2 Sitting Exercise Name posterior shoulder rolls Reps/Minutes 15 Standing Exercises 2 Standing Exercise Name low rows Reps/Minutes #2, 2x10 Manual Therapy Treatment Soft Tissue Mobilization 1 Body Location cervical spine Mobilization Type Myofascial Release Intensity/Depth Moderate Comments suboccipital release, paraspinals, right scapular musculature Manual Traction Cervical Body Position Hooklying Reps/Duration 30x5 Other Other Manual Treatments contract relax for cervical rotation PT-OP-R Modalities Start: 01/11/19 13:38 Freq: Status: Active Protocol: Document 02/03/19 09:00 AMB (Rec: 02/03/19 12:02 AMB [email or web address]) Spinal Traction Traction Treatment Cervical Method Mechanical Static Patient Position Hooklying Force Applied (Pounds) 22 Duration of Treatment (Minutes) 9 Heating Pad Applied No PT-OP-T Assessment and Plan Start: 01/07/19 12:33 Freq: Status: Active Protocol: Document 02/10/19 14:30 AMB (Rec: 02/10/19 14:43 AMB [id number]) Physical Therapy Assessment Goals Two Impairment ADLs Short Term Goal (STG) Kristen will lift 10 pounds with good body mechanics without numbness/tingling in her arm. STG Duration MET Longterm Goal (LTG) Kristen will get down on the ground with good body mechanics to weed for 10 minutes without numbness/ tingling in her arm. LTG Duration MET One Impairment ROM Short Term Goal (STG) Kristen will improve her sidebending AROM to 40 degrees bilaterally without pain. STG Duration NOT MET Purchase Request Editor Goal (LTG) Kristen will improve her extension AROM to 40 degrees of extension without pain. LTG Duration MET Assessment Summary Assessment Kristen has improved so that she can do her yardwork without irritating her neck pain. She is no longer noting the radiating pain down her arm and has improved her range of motion significantly. The concern is if she will be able to maintain those improvements in the manager long term care. She has become much more aware of her posture and should be able to continue her exercises, but may benefit from follow up depending on the direction she takes with her surgeon. Physical Therapy Plan Hold Physical Therapy Reason For Hold Waiting for pt to see surgeon Next Visit Focus/Plan Next Note Type Treatment Note Next Visit Plan Follow up on surgeon suggestions
--- NOTE | 2019-06-20 08:08 | PT.OPDS ---
Current Diagnoses Pain in right shoulder (02/10/19) Radiculopathy, cervical region (02/10/19) Visit Care Team Role Provider Type HARJEET Peters Attending Provider Advanced Neurology Stroke Physician Primary Care Provider Specialty: Medical Address: [address] [place] [address], [id number] Email: [email or web address] Visit Number Visit Number 6 Discharge Summary PT-OP-B Current Condition Start: 01/07/19 12:33 Freq: Status: Active Protocol: Document 01/07/19 13:00 AMB (Rec: 01/10/19 08:54 AMB [email or web address]) Current Condition History of Current Condition Onset Date 3 months ago Current Complaints neck pain that radiates into the right arm and hand History of Current Condition Pt reports she has had some right shoulder pain/ neck pain , but 3 months ago it became significantly worse with radiating numbness and tingling into the right dorsum of the hand, not really into the fingers. Worst with cervical extension, yard work. Pt has liver disease so cannot take many pain medications. Did fracture her ribs 8 months ago in a fall. Prior Treatments and Tests MRI noted multiple levels of degenerative changes, worst at C5-6: moderate-severe foraminal narrowing on the right. Moderate-severe central canal narrowing. Future Testing and Treatments Planned Seeing ortho next week Treatment Goals Patient/Caregiver Goals reduce pain so that she can do yardwork Prior Functional Status Baseline Function- ADL's Independent Baseline Function- Mobility Independent Current Functional Impairments (Reported) Functional Limitations- ADL's Sleep is diminished due to pain, difficulty carrying lifting due to pain Functional Limitations- Recreation/ limited with yardwork Hobbies Personal Factors Other Personal Factors That May Effect hypothyroid, mental health Therapy/Recovery history of alcohol abuse and prior suicidal ideation PT-OP-C Subjective Start: 01/07/19 12:33 Freq: Status: Active Protocol: Document 02/10/19 14:30 AMB (Rec: 02/14/19 16:00 AMB [email or web address]) OP-PT Subjective Patient Comments Patient Comments Kristen has been very happy with her improvement so far, but does feel that she would like to keep her chart open until she meets with a surgeon to see what they have to say, because of insurance limitations, we will not see her until that happens so that she still has some PT visits remaining if she elects to have surgery. PT-OP-J Posture/Palpation/Skin Start: 01/07/19 12:33 Freq: Status: Active Protocol: Document 01/07/19 13:00 AMB (Rec: 01/10/19 08:36 AMB [email or web address]) Posture Evaluation Comments Posture Comments forward head Palpation Assessment Location One Palpation Location cervical spine Palpation Findings Soft Tissue Tightness,Muscle Guarding,Tenderness PT-OP-K Range of Motion Start: 01/07/19 12:33 Freq: Status: Active Protocol: Document 02/10/19 14:43 AMB (Rec: 02/10/19 14:44 AMB [id number]) Cervical Spine Range of Motion Cervical Spine Active Degrees Extension 60 Rotation Left 65 Rotation Right 70 Lateral Flexion Left 25 Lateral Flexion Right 35 PT-OP-L Special Tests Start: 01/07/19 12:33 Freq: Status: Active Protocol: Document 01/07/19 13:00 AMB (Rec: 01/10/19 08:43 AMB [email or web address]) Special Tests Cervical Spine Special Tests Spurling's Test Test Results positive on the right PT-OP-M Strength Start: 01/07/19 12:33 Freq: Status: Active Protocol: Document 01/07/19 13:00 AMB (Rec: 01/10/19 08:43 AMB [email or web address]) Hand R Programmer/Pinch Strength Hand Dominance Hand Dominance Right Hand Strength Right R Programmer (lbs) 55 Left R Programmer (lbs) 45 PT-OP-T Assessment and Plan Start: 01/07/19 12:33 Freq: Status: Active Protocol: Document 06/20/19 08:02 AMB (Rec: 06/20/19 08:07 AMB [email or web address]) Physical Therapy Assessment Goals Two Impairment ADLs Short Term Goal (STG) Kristen will lift 10 pounds with good body mechanics without numbness/tingling in her arm. STG Duration MET Executive Director Goal (LTG) Kristen will get down on the ground with good body mechanics to weed for 10 minutes without numbness/ tingling in her arm. LTG Duration MET One Impairment ROM Short Term Goal (STG) Kristen will improve her sidebending AROM to 40 degrees bilaterally without pain. STG Duration NOT MET Group Home Goal (LTG) Kristen will improve her extension AROM to 40 degrees of extension without pain. LTG Duration MET Assessment Summary Assessment At Kristen's last visit (6) in February:Kristen has improved so that she can do her yardwork without irritating her neck pain. She is no longer noting the radiating pain down her arm and has improved her range of motion significantly. The concern is if she will be able to maintain those improvements in the custodial. She has become much more aware of her posture and should be able to continue her exercises, but may benefit from follow up depending on the direction she takes with her surgeon. She has not followed up with PT since that time, so she is now discharged. Physical Therapy Plan Discharge Physical Therapy Discharge Reasons No Longer Attending PT
== END 2019-07-01 10:54 ==
LOC: PHYS 14:30
PROVIDERS: PCP Registered Nurse; Visit Provider Registered Nurse
DX: M25.511 Pain in right shoulder (principal); M54.12 Radiculopathy, cervical region
CPT/HCPCS: 97012; 97110; 97140; 97161

== ENCOUNTER 2019-03-03 00:10 | Emergency (ER) | payer OTHER, MEDICAID, SELFPAY ==
--- NOTE | 2019-03-03 00:18 | ED.GENADULT ---
HPI - General Adult General Chief complaint: Psychiatric Symptoms Stated complaint: ETOH/mental health Time Seen by Provider: 03/03/19 00:15 Source: patient and EMS Mode of arrival: EMS Limitations: no limitations History of Present Illness HPI narrative: Patient is a 59-year-old female. I evaluated her in this emergency department the past for alcohol intoxication. She also has known mental health issues and has had issues with suicidal ideation in the past. This evening she was brought in by EMS. She admits to drinking alcohol this evening. She admits to having thoughts of hurting herself. Her plan for hurting herself his to slide down patience [place] into the water. I have seen her in the past with this same plan. Patient is currently under mental health treatment. She states that her counseling sessions have been very troublesome for her. She did not express more than that here in the emergency department. She was very tearful and also anxious. Related Data Home Medications Medication Instructions Recorded Confirmed nadolol 30 mg PO DAILY 04/23/18 02/15/19 liothyronine 5 mcg tablet 10 mcg PO DAILY tab 05/31/18 02/15/19 furosemide [Lasix] 20 mg PO DAILY 12/27/18 02/15/19 lactulose 15 - 30 ml PO 1-2XD 12/27/18 02/15/19 spironolactone 100 mg PO DAILY 12/27/18 02/15/19 levothyroxine 100 mcg tablet 112 mcg PO DAILY tab 02/15/19 02/15/19 Previous Rx's Medication Instructions Recorded Xifaxan 550 mg PO BID #60 tab 09/16/16 estradiol 0.025 mg/24 hr 1 patch TRANSDERMAL 2XW #8 each 05/21/18 semiweekly transdermal patch diclofenac 1 % topical gel 2 gram TOP QID PRN #100 gram 11/29/18 lorazepam 1 mg tablet 1 mg PO DAILY PRN #30 tab 01/28/19 gabapentin 300 mg capsule 300 mg PO TID #90 cap 02/15/19 Allergies Allergy/AdvReac Type Severity Reaction Status Date / Time No Known Drug Allergies Allergy Verified 02/15/19 13:45 Review of Systems Constitutional Denies fever(s) and Denies headache(s) ENT Ears, Nose, Mouth, and Throat: Denies headache(s) Cardiovascular Denies chest pain and Denies dyspnea Respiratory Denies dyspnea Gastrointestinal Gastrointestinal: Denies abdominal pain Musculoskeletal Denies myalgias and Denies arthralgias Integumentary/Breasts Denies rash Neurologic Denies behavioral changes, Denies confusion and Denies headache(s) Psychiatric Reports anxiety, Denies behavioral changes, Denies confusion, Reports depression, Reports mood swings, Denies visual hallucinations and Reports suicidal ideation Hematologic/Lymphatic Denies easy bleeding and Denies easy bruising [facility] Medical History Anxiety (Chronic) Cardiac arrhythmia (Chronic) Cirrhosis (Chronic 2012) Coagulation disorder (Chronic 2012) EV (esophageal varices) (Chronic 10/2015) Eczema (Chronic 2014) GI bleeding (Chronic 2015) Hypertension (Chronic) Hypothyroidism (Chronic) Nonalcoholic fatty liver disease (Chronic) PTSD (post-traumatic stress disorder) (Chronic 1999) Portal hypertensive gastropathy (Chronic 05/2015) Psoriasis (Chronic 2014) Chicken pox (Resolved) History of blood transfusion (Resolved 10/2015) History of heavy periods (Resolved 2014) Measles (Resolved) Mumps (Resolved) Ovarian cyst (Resolved 2012) Painful menstrual periods (Resolved 2012) Social History Smoking Status: Never smoker alcohol intake: current Exam Initial Vital Signs Initial Vital Signs: Vital Signs Temperature 97.9 F 03/03/19 00:25 Pulse Rate 98 H 03/03/19 00:25 Respiratory Rate 20 03/03/19 00:25 Blood Pressure 118/83 03/03/19 00:25 Pulse Oximetry 98 03/03/19 00:25 Const General: well developed and well groomed Orientation: alert, awake, oriented x3 and not confused HENMT Head: normal to inspection and normocephalic Resp Effort & Inspection: normal respiratory effort Auscultation: clear to auscultation bilaterally Cardio Rate: regular rate Rhythm: regular rhythm Skin Lesions: no lesions Rashes: no rashes Neuro General: alert, awake and oriented x3 Extrem General: normal to inspection and capillary refill normal Psych Appearance: well kempt Speech and Movement: speech and movement normal, not agitated and restless Mood: anxious mood and No angry Affect: sad, anxious affect and No hostile Attitude: cooperative Thought Content: suicidality Judgment: fair Course Orders Ordered: ED Orders 03/03/19 00:33 Acetaminophen Stat Basic Metabolic Panel Stat Complete Blood Count AUTO DIFF Stat Ethanol (ETOH) Stat Hepatic (Liver) Panel Stat Lipase Stat Salicylate Stat Thyroid Stimulating Hormone Stat 03/03/19 03:15 Urinalysis and Microscopic Stat Urine Drug Screen, Rapid Stat Discontinued Medications Lorazepam (Ativan) 1 mg PO NOW ONE Stop: 03/03/19 00:17 Last Admin: 03/03/19 00:23 Dose: 1 mg Vital Signs - 8 hr 03/03/19 00:25 03/03/19 04:03 Temperature 97.9 F Pulse Rate 98 H 88 Respiratory Rate 20 20 Blood Pressure 118/83 Blood Pressure [Left Arm] 212/72 H Pulse Oximetry 98 98 Medical Decision Making Medical Records Medical records reviewed: Yes I reviewed the patient's medical records. Lab Data Lab results reviewed: Yes I reviewed the patient's lab results. Result diagrams: 03/03/19 00:33 03/03/19 00:33 Lab Results 03/03/19 03/03/19 03/03/19 Range/Units 00:33 00:33 00:33 WBC 9.8 (4.5-11.0) X10^3/uL RBC 4.47 (4.0-5.2) X10^6/uL Hgb 15.1 (12.0-16.0) g/dL Hct 43.0 (36-46) % MCV 96.1 (80-100) fL MCH 33.8 (26-34) PG MCHC 35.2 (30-36) % RDW 13.6 (11.6-14.8) % Plt Count 226 (150-400) X10^3/uL Neut % (Auto) 45.6 L (50-75) % Lymph % (Auto) 44.7 H (25-40) % [place] % (Auto) 8.1 (3-14) % Eos % (Auto) 0.7 L (2-4) % Baso % (Auto) 0.9 (0-2) % Neut # (Auto) 4500 (7125-9086) /uL Lymph # (Auto) 4400 (1761-6688) /uL [place] # (Auto) 800 (0-900) /uL Eos # (Auto) 100 (0-450) /uL Baso # (Auto) 100 (0-100) /uL Sodium 140 (137-145) mmol/L Potassium 4.5 (3.4-5.1) mmol/L Chloride 100 (98-107) mmol/L Carbon Dioxide 21 L (22-32) mmol/L BUN 12 (7-17) mg/dL Creatinine 0.60 (0.52-1.04) mg/dL Estimated GFR > 60.0 (>60) mL/min BUN/Creatinine Ratio 20.0 (6-22) Glucose 93 (70-100) mg/dL Calcium 10.2 (8.4-10.2) mg/dL Total Bilirubin (0.2-1.3) mg/dL Conjugated Bilirubin (0.0-0.3) md/dL Unconjugated Bilirubin (0.0-1.1) mg/dL AST (14-36) IU/L ALT (9-52) IU/L Alkaline Phosphatase (38-126) U/L Total Protein (6.3-8.2) g/dL Albumin (3.5-5.0) g/dL Globulin (1.7-4.1) g/dL Albumin/Globulin Ratio (1.0-2.8) Lipase (23-300) U/L TSH 0.10 L (0.47-4.68) uIU/mL Urine Color Urine Appearance Urine pH (4.5-8.0) Ur Specific [place] (1.000-1.035) Urine Protein (Negative) Urine Glucose (UA) (Negative) g/dL Urine Ketones (NEGATIVE) Urine Occult Blood (Negative) Urine Nitrate (Negative) Urine Bilirubin (NEGATIVE) Urine Urobilinogen (0.2) E.U./dL Ur Leukocyte Esterase (NEGATIVE) Urine RBC (0-5/HPF) Urine WBC (0-5/HPF) Urine Bacteria (None) Ur Culture Indicated? Micro UA Comment Salicylates < 1.0 (<20) mg/dL Urine Opiates Screen (Negative) Ur Oxycodone Screen (Negative) Urine Methadone Screen (Negative) Acetaminophen < 10 L (10-30) ug/mL Ur Barbiturates Screen (Negative) U Tricyclic Antidepress (Negative) Ur Phencyclidine Scrn (Negative) Ur Amphetamines Screen (Negative) U Methamphetamines Scrn (Negative) Ur MDMA Scrn (Ecstasy) (Negative) U Benzodiazepines Scrn (Negative) Urine Cocaine Screen (Negative) U Marijuana (THC) Screen (Negative) Ethyl Alcohol 347 H ( - 10) mg/dL 03/03/19 03/03/19 03/03/19 Range/Units 00:33 03:15 03:15 WBC (4.5-11.0) X10^3/uL RBC (4.0-5.2) X10^6/uL Hgb (12.0-16.0) g/dL Hct (36-46) % MCV (80-100) fL MCH (26-34) PG MCHC (30-36) % RDW (11.6-14.8) % Plt Count (150-400) X10^3/uL Neut % (Auto) (50-75) % Lymph % (Auto) (25-40) % [place] % (Auto) (3-14) % Eos % (Auto) (2-4) % Baso % (Auto) (0-2) % Neut # (Auto) (1331-4596) /uL Lymph # (Auto) (1782-5438) /uL [place] # (Auto) (0-900) /uL Eos # (Auto) (0-450) /uL Baso # (Auto) (0-100) /uL Sodium (137-145) mmol/L Potassium (3.4-5.1) mmol/L Chloride (98-107) mmol/L Carbon Dioxide (22-32) mmol/L BUN (7-17) mg/dL Creatinine (0.52-1.04) mg/dL Estimated GFR (>60) mL/min BUN/Creatinine Ratio (6-22) Glucose (70-100) mg/dL Calcium (8.4-10.2) mg/dL Total Bilirubin 0.9 (0.2-1.3) mg/dL Conjugated Bilirubin 0.0 (0.0-0.3) md/dL Unconjugated Bilirubin 0.5 (0.0-1.1) mg/dL AST 105 H (14-36) IU/L ALT 101 H (9-52) IU/L Alkaline Phosphatase 72 (38-126) U/L Total Protein 9.1 H (6.3-8.2) g/dL Albumin 5.1 H (3.5-5.0) g/dL Globulin 4.0 (1.7-4.1) g/dL Albumin/Globulin Ratio 1.3 (1.0-2.8) Lipase 431 H (23-300) U/L TSH (0.47-4.68) uIU/mL Urine Color Yellow Urine Appearance Clear Urine pH 6.0 (4.5-8.0) Ur Specific [place] <=1.005 (1.000-1.035) Urine Protein Negative (Negative) Urine Glucose (UA) Negative (Negative) g/dL Urine Ketones Negative (NEGATIVE) Urine Occult Blood Negative (Negative) Urine Nitrate Negative (Negative) Urine Bilirubin Negative (NEGATIVE) Urine Urobilinogen 0.2 (0.2) E.U./dL Ur Leukocyte Esterase Negative (NEGATIVE) Urine RBC None seen (0-5/HPF) Urine WBC None seen (0-5/HPF) Urine Bacteria None seen (None) Ur Culture Indicated? Cult not indicated Micro UA Comment Microscopic normal Salicylates (<20) mg/dL Urine Opiates Screen Negative (Negative) Ur Oxycodone Screen Negative (Negative) Urine Methadone Screen Negative (Negative) Acetaminophen (10-30) ug/mL Ur Barbiturates Screen Negative (Negative) U Tricyclic Antidepress Negative (Negative) Ur Phencyclidine Scrn Negative (Negative) Ur Amphetamines Screen Negative (Negative) U Methamphetamines Scrn Negative (Negative) Ur MDMA Scrn (Ecstasy) Negative (Negative) U Benzodiazepines Scrn Positive H (Negative) Urine Cocaine Screen Negative (Negative) U Marijuana (THC) Screen Positive H (Negative) Ethyl Alcohol ( - 10) mg/dL MDM Narrative Medical decision making narrative: Patient is obviously intoxicated. She did admit to being suicidal and was also admitting to being anxious. She did allow us to draw all blood. She does have a history elevated liver enzymes secondary to her alcohol use. Her TSH was also low which could potentially be indicative of hyperthyroidism. Patient did spend several hours here in the emergency department sleeping. When she woke up she stated that she was no longer suicidal. She states that she starts to feel like this when she gets very anxious and worked up with drinking. She states that she has no plans of hurting herself. She states that if she ever thought about hurting herself that she would contact the crisis line in come into the emergency department. I do not feel that the patient meets involuntary admission. Patient does not want to be admitted to the hospital. Discharge Plan Departure Patient Disposition: Home Clinical Impression: Alcohol intoxication Qualifiers: Complication of substance-induced condition: with unspecified complication Qualified Code(s): F10.929 - Alcohol use, unspecified with intoxication, unspecified Depression Qualifiers: Depression Type: unspecified Qualified Code(s): F32.9 - Major depressive disorder, single episode, unspecified Instructions: Alcohol Use Disorder Activity Restrictions/Additional Instructions: Recommend you continue all of your medications as directed. Later today contact your primary provider and also your therapist to discuss why you were here and any further treatment needed. Recommend that you abstain from alcohol. No driving for the next 24 hours. Return to the emergency department for any new or worsening symptoms Prescriptions: No Action Xifaxan 550 MG tablet 550 mg PO BID Qty: 60 RF: 11 estradiol 0.025 mg/24 hr patch semiweekly 1 patch Transdermal 2XW Qty: 8 RF: 11 lorazepam 1 mg tablet 1 mg PO DAILY PRN (Reason: Anxiety) Qty: 30 RF: 0 liothyronine [Cytomel] 5 mcg tablet 10 mcg PO DAILY RF: 0 diclofenac sodium 1 % gel 2 gram TOP QID PRN (Reason: pain) Qty: 100 RF: 0 gabapentin 300 mg capsule 300 mg PO TID Qty: 90 RF: 3 nadolol 20 MG tablet 30 mg PO DAILY RF: 0 spironolactone 100 mg tablet 100 mg PO DAILY RF: 0 lactulose 10 gram/15 mL solution 15 - 30 ml PO 1-2XD RF: 0 furosemide [Lasix] 20 mg tablet 20 mg PO DAILY RF: 0 levothyroxine 100 mcg tablet 112 mcg PO DAILY RF: 0
[2019-03-03] MEDS: LORazepam 0.5 MG TABLET 1 MG PO (00:23)
[2019-03-03 00:25] VITALS: BP 118/83; PULSE 98; RESP 20; TEMP 36.6; O2SAT 98
[2019-03-03 00:42] LABS: Add Manual Diff / Slide Review NO; Basophils Absolute Auto 100 /uL (0-100); Basophils Percent Auto 0.9 % (0-2); Eosinophils Absolute Auto 100 /uL (0-450); Eosinophils Percent Auto 0.7 % (2-4); Hemoglobin 15.1 g/dL (12.0-16.0); Lymphocytes Absolute Auto 4400 /uL (1100-4500); Lymphocytes Percent Auto 44.7 % (25-40); Mean Corpuscular HGB Conc 35.2 % (30-36); Mean Corpuscular Hemoglobin 33.8 PG (26-34); Mean Corpuscular Volume 96.1 fL (80-100); Monocytes Absolute Auto 800 /uL (0-900); Monocytes Percent Auto 8.1 % (3-14); Neutrophils Absolute Auto 4500 /uL (1500-7000); Neutrophils Percent Auto 45.6 % (50-75); Platelet Count 226 X10^3/uL (150-400); Red Blood Cell Count 4.47 X10^6/uL (4.0-5.2); Red Cell Distribution Width 13.6 % (11.6-14.8); White Blood Cell Count 9.8 X10^3/uL (4.5-11.0)
[2019-03-03 00:52] LABS: Acetaminophen < 10 ug/mL (10-30); Blood Urea Nitrogen 12 mg/dL (7-17); Calcium 10.2 mg/dL (8.4-10.2); Carbon Dioxide 21 mmol/L (22-32); Chloride 100 mmol/L (98-107); Estimated Glomerular Filt Rate > 60.0 mL/min (>60); Glucose 93 mg/dL (70-100); HEMOLYSIS < 15 (0-50); Potassium 4.5 mmol/L (3.4-5.1); Salicylate < 1.0 mg/dL (<20); Sodium 140 mmol/L (137-145)
[2019-03-03 00:53] LABS: Alanine Aminotransferase 101 IU/L (9-52); Albumin 5.1 g/dL (3.5-5.0); Albumin Globulin Ratio 1.3 (1.0-2.8); Alkaline Phosphatase 72 U/L (38-126); Aspartate Aminotransferase 105 IU/L (14-36); Bilirubin Total 0.9 mg/dL (0.2-1.3); Bilirubin Unconjugated 0.5 mg/dL (0.0-1.1); HEMOLYSIS < 15 (0-50); Lipase 431 U/L (23-300); Total Protein 9.1 g/dL (6.3-8.2)
[2019-03-03 01:01] LABS: Ethanol (ETOH) 347 mg/dL
--- NOTE | 2019-03-03 01:18 | PC.NURSE ---
she appears asleep now,her eyes are closed and her respirations are even and not labored.She will be allowed to sleep,per DR Mustafa order,and hopefully become more sober and thinking clearer about her situation.
[2019-03-03 03:19] LABS: Bacteria Urine None Seen; RBC Urine None Seen (0-5/HPF); WBC Urine None Seen (0-5/HPF)
[2019-03-03 03:20] LABS: Appearance Urine UA CLEAR; Bilirubin Urine UA NEGATIVE (NEGATIVE); Color Urine UA YELLOW; Glucose Urine UA NEGATIVE (Negative); Ketones Urine UA NEGATIVE (NEGATIVE); Leukocyte Esterase Urine UA NEGATIVE (NEGATIVE); Nitrite Urine UA NEGATIVE (Negative); Occult Blood Urine UA NEGATIVE (Negative); Protein Urine UA NEGATIVE (Negative); Specific Gravity Urine UA <=1.005 (1.000-1.035); Urobilinogen Urine UA 0.2 E.U./dL (0.2)
[2019-03-03 03:28] LABS: Culture Indicated Urine Cult Not Indicated; Urine Amphetamines Negative (Negative); Urine Barbiturates Negative (Negative); Urine Benzodiazepines Positive (Negative); Urine Cocaine Negative (Negative); Urine Comments Microscopic Normal; Urine MDMA Negative (Negative); Urine Methadone Negative (Negative); Urine Methamphetamines Negative (Negative); Urine Morphine/Opi cutoff 2000 Negative (Negative); Urine Oxycodone Negative (Negative); Urine Phencyclidine Negative (Negative); Urine Tetrahydrocannabinol Positive (Negative); Urine Tricyclic Antidepressant Negative (Negative)
[2019-03-03 04:03] VITALS: BP 212/72; PULSE 88; RESP 20; O2SAT 98
[2019-03-03 06:54] VITALS: BP 110/78; PULSE 85; RESP 18; TEMP 36.5; O2SAT 94
--- NOTE | 2019-03-03 06:55 | PC.NURSE ---
She has steady gait,speech clesr,denies any suicidal thoughts or homicidal thoughts.
== END 2019-03-03 06:58 | disposition home or self-care (01) ==
PROVIDERS: Emergency Provider Emergency Medicine; PCP Registered Nurse
DX: F10.929 Alcohol use, unspecified with intoxication, unspecified (principal); F32.9 Major depressive disorder, single episode, unspecified
CPT/HCPCS: 36415; 80048; 80076; 80305; 80320; 80329; 81001; 83690; 84443; 85025; 99283; G0480

== ENCOUNTER 2019-05-07 21:07 | Emergency (ER) | payer OTHER, MEDICAID, SELFPAY ==
[2019-05-07 21:08] VITALS: BP 136/102; PULSE 90; RESP 12; TEMP 36.1; O2SAT 96
--- NOTE | 2019-05-07 21:11 | PC.NURSE ---
asking triage questions and pt states why am I here? I just drank too much
[2019-05-07 21:30] VITALS: BP 108/73; PULSE 86; RESP 14; O2SAT 98
--- NOTE | 2019-05-07 21:39 | ED_ITS ---
HPI - Alcohol General Chief Complaint: Toxicology Problem Stated Complaint: ETOH, panic attack Time Seen by Provider: 05/07/19 21:10 Source: patient and EMS Mode of arrival: EMS Limitations: no limitations History of Present Illness HPI narrative: 59-year-old female nonsmoker with extensive history of alcohol presents by EMS for evaluation of a panic attack which seem to be brought on if not worsened by extensive drinking tonight. She does have a longstanding history of the same and has significant processes in place to help her. She denies any suicidal or homicidal ideation. She has had no vomiting or diarrhea. Her symptoms are largely improved prior to her arrival. She states she had between 1 and 2 bottles of wine tonight which is not 1 significantly atypical for her. She admittedly often will begin drinking heavily when she starts to feel anxious, she knows that this makes her symptoms worse MD complaint: alcohol intoxication Last drink: just prior to this admission Chronic alcohol use: Yes Previous visits for alcohol intoxication: Yes Recent trauma: No Associated symptoms: depression Related Data Home Medications Medication Instructions Recorded Confirmed nadolol 30 mg PO DAILY 04/23/18 04/19/19 liothyronine 5 mcg tablet 10 mcg PO DAILY tab 05/31/18 04/19/19 furosemide [Lasix] 20 mg PO DAILY 12/27/18 04/19/19 lactulose 15 - 30 ml PO 1-2XD 12/27/18 04/19/19 spironolactone 100 mg PO DAILY 12/27/18 04/19/19 levothyroxine 100 mcg tablet 112 mcg PO DAILY tab 02/15/19 04/19/19 Previous Rx's Medication Instructions Recorded Xifaxan 550 mg PO BID #60 tab 09/16/16 diclofenac sodium 1 % topical gel 2 gram TOP QID PRN #100 gram 11/29/18 gabapentin 300 mg capsule 300 mg PO TID #90 cap 02/15/19 lorazepam 1 mg tablet 1 mg PO DAILY PRN #30 tab 03/08/19 olanzapine 5 mg disintegrating 5 mg PO DAILY PRN #5 tab 04/19/19 tablet estradiol 0.025 mg/24 hr See Rx Instructions .ROUTE 05/02/19 semiweekly transdermal patch .COMPLEX #8 patch Allergies Allergy/AdvReac Type Severity Reaction Status Date / Time No Known Drug Allergies Allergy Verified 04/19/19 14:59 Review of Systems Constitutional Constitutional: Denies chills, Denies fatigue, Denies fever(s), Denies frequent falls, Denies lethargy and Denies weakness Eyes Eyes: Denies change in vision, Denies eye discharge, Denies irritation and Denies loss of vision ENT Ears, Nose, Mouth, and Throat: Denies change in voice, Denies dizziness, Denies neck pain, Denies sore throat and Denies throat swelling Cardiovascular Cardiovascular: Denies chest pain, Denies irregular heart rhythm, Denies lightheadedness, Denies palpitations, Denies dyspnea, Denies dyspnea on exertion and Denies orthopnea Respiratory Respiratory: Denies cough, Denies dyspnea, Denies dyspnea on exertion and Denies wheezing Gastrointestinal Gastrointestinal: Denies abdominal pain, Denies change in bowel habits, Denies diarrhea, Denies nausea and Denies vomiting Genitourinary Genitourinary: Denies hematuria, Denies flank pain, Denies urinary incontinence and Denies urinary urgency Musculoskeletal Musculoskeletal: Denies back pain, Denies muscle weakness, Denies neck pain, Denies numbness and Denies tingling Integumentary/Breasts Skin/Breast: Denies pruritus, Denies erythema, Denies rash and Denies wounds Neurologic Neurologic: Denies behavioral changes, Denies confusion, Denies dizziness, Denies frequent falls, Denies loss of vision, Denies numbness, Denies tingling and Denies weakness Psychiatric Psychiatric: Denies anxiety, Denies behavioral changes, Denies confusion, Denies depression, Denies homicidal ideation and Denies suicidal ideation Endocrine Endocrine: Denies fatigue, Denies flushing and Denies palpitations Hematologic/Lymphatic Hematologic/Lymphatic: Denies easy bruising Allergic/Immunologic Allergic/Immunologic: Denies urticaria, Denies throat swelling and Denies wheezing Patient History Medical History Anxiety (Chronic) Cardiac arrhythmia (Chronic) Chicken pox (Resolved) Cirrhosis (Chronic 2012) Coagulation disorder (Chronic 2012) Eczema (Chronic 2014) EV (esophageal varices) (Chronic 10/2015) GI bleeding (Chronic 2015) History of blood transfusion (Resolved 10/2015) History of heavy periods (Resolved 2014) Hypertension (Chronic) Hypothyroidism (Chronic) Measles (Resolved) Mumps (Resolved) Nonalcoholic fatty liver disease (Chronic) Ovarian cyst (Resolved 2012) Painful menstrual periods (Resolved 2012) Portal hypertensive gastropathy (Chronic 05/2015) Psoriasis (Chronic 2014) PTSD (post-traumatic stress disorder) (Chronic 1999) Surgical History History of esophagogastroduodenoscopy (EGD) (Resolved 01/2009) History of esophagogastroduodenoscopy (EGD) (Resolved 05/2015) Status post appendectomy (Resolved) Status post colonoscopy (Resolved 01/2009) Status post hernia repair (Resolved) Status post hysteroscopy (Resolved 06/17/11) Status post laparoscopic supracervical hysterectomy (Resolved 08/25/16) Family History Grandfather Heart disease CA (myocardial infarction) Grandmother Alcoholism Father No problems noted. Mother No problems noted. Grandfather Heart disease Grandmother Colon cancer Brother No problems noted. Social History Smoking Status: Never smoker alcohol intake: current alcohol intake frequency: 3 or more drinks per day Substance Use Type: does not use Exam Narrative Exam Narrative: GENERAL: [59] year old patient appears stated age. Well- nourished, well-developed patient, in mild distress. HEAD: Atraumatic. Normocephalic. EYES: Pupils equal round and reactive. Extraocular motions intact. No scleral icterus. No injection or drainage. ENT: Nose without bleeding, purulent drainage. Throat without erythema, tonsillar hypertrophy or exudate. Airway patent. NECK: Trachea midline. Non tender CARDIOVASCULAR: Regular rate and rhythm without murmurs, gallops, or rubs. RESPIRATORY: Clear to auscultation. Breath sounds equal bilaterally. No wheezes, rales, or rhonchi. GASTROINTESTINAL: Abdomen soft, non-tender, nondistended. EXTREMITIES: No edema or joint tenderness. BACK: Nontender without deformity or crepitance. No flank tenderness. NEURO: AOx3. SKIN: No rash or erythema of visible areas Initial Vital Signs Initial Vital Signs: Vital Signs Temperature 96.9 F L 05/07/19 21:08 Pulse Rate 90 05/07/19 21:08 Respiratory Rate 12 05/07/19 21:08 Blood Pressure 136/102 H 05/07/19 21:08 Pulse Oximetry 96 05/07/19 21:08 Course Course Course Narrative: Patient observed for few hours. She has of a close friend at the bedside willing to take her home. The patient is alert and oriented, speaking clearly and walk a straight line without assistance. She has capacity to make her own decisions and wishes to go home. Orders Ordered: ED Orders 05/07/19 21:30 Complete Blood Count AUTO DIFF Stat Comprehensive Metabolic Panel Stat Ethanol (ETOH) Stat Hepatic (Liver) Panel Stat Lipase Stat Magnesium Stat UA Complete [Urinalysis and Microscopic] Stat Urine Drug Screen, Rapid Stat Discontinued Medications Sodium Chloride (Normal Saline 0.9%) 1,000 mls @ 1,000 mls/hr IV BOLUS ONE Stop: 05/07/19 22:36 Last Infusion: 05/07/19 22:52 Dose: 0 mls/hr Documented by: Admin: 05/07/19 21:42 Dose: 1,000 mls/hr Documented by: ALBINA Sodium Chloride (Normal Saline 0.9%) 500 mls @ 1,000 mls/hr IV BOLUS ONE Stop: 05/07/19 23:18 Sodium Chloride (Normal Saline 0.9%) 1,000 mls @ 150 mls/hr IV CONT AGNIESZKA Last Admin: 05/07/19 22:53 Dose: 150 mls/hr Documented by: ALBINA Ondansetron HCl (Zofran) 4 mg IV NOW ONE Stop: 05/07/19 22:30 Last Admin: 05/07/19 22:33 Dose: 4 mg Documented by: ALBINA Vital Signs Vital signs: Vital Signs - 8 hr 05/07/19 21:08 05/07/19 21:30 05/07/19 22:14 Temperature 96.9 F L Pulse Rate 90 86 83 Respiratory Rate 12 14 Blood Pressure 136/102 H Blood Pressure [Right Arm] 108/73 110/77 Pulse Oximetry 96 98 05/08/19 00:48 Temperature Pulse Rate 78 Respiratory Rate 16 Blood Pressure 112/78 Blood Pressure [Right Arm] Pulse Oximetry 98 MDM - Alcohol Lab Data Result diagrams: 05/07/19 21:30 05/07/19 21:30 Labs: Lab Results 05/07/19 05/07/19 05/07/19 Range/Units 21:30 21:30 21:30 WBC 6.7 (4.5-11.0) X10^3/uL RBC 4.04 (4.0-5.2) X10^6/uL Hgb 13.6 (12.0-16.0) g/dL Hct 39.6 (36-46) % MCV 97.9 (80-100) fL MCH 33.6 (26-34) PG MCHC 34.3 (30-36) % RDW 14.5 (11.6-14.8) % Plt Count 131 L (150-400) X10^3/uL Neut % (Auto) 48.7 L (50-75) % Lymph % (Auto) 41.4 H (25-40) % [place] % (Auto) 8.2 (3-14) % Eos % (Auto) 1.2 L (2-4) % Baso % (Auto) 0.5 (0-2) % Neut # (Auto) 3300 (6594-7014) /uL Lymph # (Auto) 2800 (8495-1772) /uL [place] # (Auto) 600 (0-900) /uL Eos # (Auto) 100 (0-450) /uL Baso # (Auto) 0 (0-100) /uL Sodium 144 (137-145) mmol/L Potassium 4.4 (3.4-5.1) mmol/L Chloride 108 H (98-107) mmol/L Carbon Dioxide 23 (22-32) mmol/L BUN 20 H (7-17) mg/dL Creatinine 0.70 (0.52-1.04) mg/dL Estimated GFR > 60.0 (>60) mL/min BUN/Creatinine Ratio 28.6 H (6-22) Glucose 116 H (70-100) mg/dL Calcium 9.9 (8.4-10.2) mg/dL Magnesium 1.9 (1.6-2.3) mg/dL Total Bilirubin 0.5 (0.2-1.3) mg/dL Conjugated Bilirubin 0.0 (0.0-0.3) md/dL Unconjugated Bilirubin 0.3 (0.0-1.1) mg/dL AST 106 H (14-36) IU/L ALT 81 H (9-52) IU/L Alkaline Phosphatase 56 (38-126) U/L Total Protein 8.2 (6.3-8.2) g/dL Albumin 4.7 (3.5-5.0) g/dL Globulin 3.5 (1.7-4.1) g/dL Albumin/Globulin Ratio 1.3 (1.0-2.8) Lipase 460 H (23-300) U/L Urine Color Urine Appearance Urine pH (4.5-8.0) Ur Specific [place] (1.000-1.035) Urine Protein (Negative) Urine Glucose (UA) (Negative) g/dL Urine Ketones (NEGATIVE) Urine Occult Blood (Negative) Urine Nitrate (Negative) Urine Bilirubin (NEGATIVE) Urine Urobilinogen (0.2) E.U./dL Ur Leukocyte Esterase (NEGATIVE) Urine RBC (0-5/HPF) Urine WBC (0-5/HPF) Urine Bacteria (None) Ur Culture Indicated? Micro UA Comment U Morph 300 ng/mL cutoff Negative (Negative) Ur Oxycodone Screen Negative (Negative) Urine Methadone Screen Negative (Negative) Ur Barbiturates Screen Negative (Negative) U Tricyclic Antidepress Negative (Negative) Ur Phencyclidine Scrn Negative (Negative) Ur Amphetamines Screen Negative (Negative) U Methamphetamines Scrn Negative (Negative) Ur MDMA Scrn (Ecstasy) Negative (Negative) U Benzodiazepines Scrn Negative (Negative) Urine Cocaine Screen Negative (Negative) U Marijuana (THC) Screen Negative (Negative) Ethyl Alcohol 441 H* ( - 10) mg/dL 05/07/19 Range/Units 21:30 WBC (4.5-11.0) X10^3/uL RBC (4.0-5.2) X10^6/uL Hgb (12.0-16.0) g/dL Hct (36-46) % MCV (80-100) fL MCH (26-34) PG MCHC (30-36) % RDW (11.6-14.8) % Plt Count (150-400) X10^3/uL Neut % (Auto) (50-75) % Lymph % (Auto) (25-40) % [place] % (Auto) (3-14) % Eos % (Auto) (2-4) % Baso % (Auto) (0-2) % Neut # (Auto) (8123-4339) /uL Lymph # (Auto) (7002-9586) /uL [place] # (Auto) (0-900) /uL Eos # (Auto) (0-450) /uL Baso # (Auto) (0-100) /uL Sodium (137-145) mmol/L Potassium (3.4-5.1) mmol/L Chloride (98-107) mmol/L Carbon Dioxide (22-32) mmol/L BUN (7-17) mg/dL Creatinine (0.52-1.04) mg/dL Estimated GFR (>60) mL/min BUN/Creatinine Ratio (6-22) Glucose (70-100) mg/dL Calcium (8.4-10.2) mg/dL Magnesium (1.6-2.3) mg/dL Total Bilirubin (0.2-1.3) mg/dL Conjugated Bilirubin (0.0-0.3) md/dL Unconjugated Bilirubin (0.0-1.1) mg/dL AST (14-36) IU/L ALT (9-52) IU/L Alkaline Phosphatase (38-126) U/L Total Protein (6.3-8.2) g/dL Albumin (3.5-5.0) g/dL Globulin (1.7-4.1) g/dL Albumin/Globulin Ratio (1.0-2.8) Lipase (23-300) U/L Urine Color Yellow Urine Appearance Clear Urine pH 6.5 (4.5-8.0) Ur Specific [place] <=1.005 (1.000-1.035) Urine Protein Negative (Negative) Urine Glucose (UA) Negative (Negative) g/dL Urine Ketones Negative (NEGATIVE) Urine Occult Blood Negative (Negative) Urine Nitrate Negative (Negative) Urine Bilirubin Negative (NEGATIVE) Urine Urobilinogen 0.2 (0.2) E.U./dL Ur Leukocyte Esterase Negative (NEGATIVE) Urine RBC None seen (0-5/HPF) Urine WBC None seen (0-5/HPF) Urine Bacteria None seen (None) Ur Culture Indicated? Cult not indicated Micro UA Comment Microscopic normal U Morph 300 ng/mL cutoff (Negative) Ur Oxycodone Screen (Negative) Urine Methadone Screen (Negative) Ur Barbiturates Screen (Negative) U Tricyclic Antidepress (Negative) Ur Phencyclidine Scrn (Negative) Ur Amphetamines Screen (Negative) U Methamphetamines Scrn (Negative) Ur MDMA Scrn (Ecstasy) (Negative) U Benzodiazepines Scrn (Negative) Urine Cocaine Screen (Negative) U Marijuana (THC) Screen (Negative) Ethyl Alcohol ( - 10) mg/dL Discharge Plan Departure Patient Disposition: Home Clinical Impression: Anxiety Alcoholic intoxication Qualifiers: Complication of substance-induced condition: uncomplicated Qualified Code(s): F10.920 - Alcohol use, unspecified with intoxication, uncomplicated Discharge Date/Time: 05/08/19 00:49 Instructions: DI for Alcohol Abuse Activity Restrictions/Additional Instructions: *You have been diagnosed with [anxiety, panic attack, alcohol abuse] *What to do: *Take medications as directed *Follow up with your primary care provider in 2-3 days, call for an appointment. Let them know you were seen in the Emergency Department and that we ask that you be seen in follow up *Return to ER if you should have any new, worsening or concerning symptoms Prescriptions: No Action olanzapine 5 mg tablet,disintegrating 5 mg PO DAILY PRN (Reason: severe anxiety) Qty: 5 RF: 0 Xifaxan 550 MG tablet 550 mg PO BID Qty: 60 RF: 11 lorazepam 1 mg tablet 1 mg PO DAILY PRN (Reason: Anxiety) Qty: 30 RF: 2 estradiol [Yarelis] 0.025 mg/24 hr patch semiweekly See Rx Instructions .ROUTE .COMPLEX Qty: 8 RF: 11 liothyronine [Cytomel] 5 mcg tablet 10 mcg PO DAILY RF: 0 diclofenac sodium 1 % gel 2 gram TOP QID PRN (Reason: pain) Qty: 100 RF: 0 gabapentin 300 mg capsule 300 mg PO TID Qty: 90 RF: 3 nadolol 20 MG tablet 30 mg PO DAILY RF: 0 spironolactone 100 mg tablet 100 mg PO DAILY RF: 0 lactulose 10 gram/15 mL solution 15 - 30 ml PO 1-2XD RF: 0 furosemide [Lasix] 20 mg tablet 20 mg PO DAILY RF: 0 levothyroxine 100 mcg tablet 112 mcg PO DAILY RF: 0 Referrals: Melissa Ortiz ARNP [Primary Care Provider] -
[2019-05-07] MEDS: SODIUM CHLORIDE 0.9% 1,000 ML 1000 ML IV (21:42)
[2019-05-07 21:50] LABS: Bacteria Urine None Seen; RBC Urine None Seen (0-5/HPF); WBC Urine None Seen (0-5/HPF)
[2019-05-07 21:53] LABS: Appearance Urine UA CLEAR; Bilirubin Urine UA NEGATIVE (NEGATIVE); Color Urine UA YELLOW; Glucose Urine UA NEGATIVE (Negative); Ketones Urine UA NEGATIVE (NEGATIVE); Leukocyte Esterase Urine UA NEGATIVE (NEGATIVE); Nitrite Urine UA NEGATIVE (Negative); Occult Blood Urine UA NEGATIVE (Negative); Protein Urine UA NEGATIVE (Negative); Specific Gravity Urine UA <=1.005 (1.000-1.035); Urobilinogen Urine UA 0.2 E.U./dL (0.2)
[2019-05-07 21:54] LABS: Alanine Aminotransferase 81 IU/L (9-52); Albumin 4.7 g/dL (3.5-5.0); Albumin Globulin Ratio 1.3 (1.0-2.8); Alkaline Phosphatase 56 U/L (38-126); Aspartate Aminotransferase 106 IU/L (14-36); BUN Creatinine Ratio 28.6 (6-22); Bilirubin Total 0.5 mg/dL (0.2-1.3); Bilirubin Unconjugated 0.3 mg/dL (0.0-1.1); Blood Urea Nitrogen 20 mg/dL (7-17); Calcium 9.9 mg/dL (8.4-10.2); Carbon Dioxide 23 mmol/L (22-32); Chloride 108 mmol/L (98-107); Estimated Glomerular Filt Rate > 60.0 mL/min (>60); Globulin 3.5 g/dL (1.7-4.1); Glucose 116 mg/dL (70-100); HEMOLYSIS < 15 (0-50); Lipase 460 U/L (23-300); Magnesium 1.9 mg/dL (1.6-2.3); Potassium 4.4 mmol/L (3.4-5.1); Sodium 144 mmol/L (137-145); Total Protein 8.2 g/dL (6.3-8.2)
[2019-05-07 21:58] LABS: Add Manual Diff / Slide Review NO; Basophils Absolute Auto 0 /uL (0-100); Basophils Percent Auto 0.5 % (0-2); Eosinophils Absolute Auto 100 /uL (0-450); Eosinophils Percent Auto 1.2 % (2-4); Hematocrit 39.6 % (36-46); Hemoglobin 13.6 g/dL (12.0-16.0); Lymphocytes Absolute Auto 2800 /uL (1100-4500); Lymphocytes Percent Auto 41.4 % (25-40); Mean Corpuscular HGB Conc 34.3 % (30-36); Mean Corpuscular Hemoglobin 33.6 PG (26-34); Mean Corpuscular Volume 97.9 fL (80-100); Monocytes Absolute Auto 600 /uL (0-900); Monocytes Percent Auto 8.2 % (3-14); Neutrophils Absolute Auto 3300 /uL (1500-7000); Neutrophils Percent Auto 48.7 % (50-75); Platelet Count 131 X10^3/uL (150-400); Red Blood Cell Count 4.04 X10^6/uL (4.0-5.2); Red Cell Distribution Width 14.5 % (11.6-14.8); White Blood Cell Count 6.7 X10^3/uL (4.5-11.0)
[2019-05-07 22:01] LABS: pH Urine UA 6.5 (4.5-8.0)
[2019-05-07 22:04] LABS: Ethanol (ETOH) 441 mg/dL
[2019-05-07 22:05] LABS: UR Morphine/Opiate cutoff 300 Negative (Negative); Ur Creatinine 20 (Normal); Ur Specific Gravity 1.015 (Normal); Urine Amphetamines Negative (Negative); Urine Barbiturates Negative (Negative); Urine Benzodiazepines Negative (Negative); Urine Cocaine Negative (Negative); Urine MDMA Negative (Negative); Urine Methadone Negative (Negative); Urine Methamphetamines Negative (Negative); Urine Oxycodone Negative (Negative); Urine Phencyclidine Negative (Negative); Urine Tetrahydrocannabinol Negative (Negative); Urine Tricyclic Antidepressant Negative (Negative); Urine pH 5 (Normal)
[2019-05-07 22:14] VITALS: BP 110/77; PULSE 83
[2019-05-07] MEDS: ONDANSETRON 4 MG/2 ML INJ IV (22:33)
[2019-05-07 22:51] LABS: Culture Indicated Urine Cult Not Indicated; Urine Comments Microscopic Normal
[2019-05-07] MEDS: SODIUM CHLORIDE 0.9% 1,000 ML 150 ML IV (22:53)
[2019-05-08 00:48] VITALS: BP 112/78; PULSE 78; RESP 16; O2SAT 98
--- NOTE | 2019-05-08 00:50 | PC.NURSE ---
Patient is A&)x3 and can ambulate in hallway without assistance with a steady gait in a straight line. OK to DC per Dr. Becerril.
== END 2019-05-08 00:49 | disposition home or self-care (01) ==
PROVIDERS: Emergency Provider Emergency Medicine; PCP Registered Nurse
DX: F41.9 Anxiety disorder, unspecified (principal); F10.920 Alcohol use, unspecified with intoxication, uncomplicated
CPT/HCPCS: 36415; 80053; 80076; 80305; 80320; 81001; 83690; 83735; 85025; 96374; 99284; 99285; J2405

== ENCOUNTER → 2019-05-09 16:25 | Outpatient (CLI) | payer OTHER, MEDICAID, SELFPAY ==
[2019-05-09 18:00] LABS: Free T3, Triiodothyronine Free 3.47 pg/mL (2.77-5.27); Free T4, Direct Thyroxine 1.06 ng/dL (0.78-2.19)
[2019-05-09 18:14] LABS: Thyroid Stimulating Hormone 0.33 uIU/mL (0.47-4.68)
== END ==
PROVIDERS: Family Provider Registered Nurse; PCP Registered Nurse; Visit Provider Internal Medicine Endocrinology, Diabetes & Metabolism
DX: E03.8 Other specified hypothyroidism (principal)
CPT/HCPCS: 36415; 84439; 84443; 84481

== ENCOUNTER → 2019-06-01 13:59 | Outpatient (CLI) | payer OTHER, MEDICAID, SELFPAY ==
[2019-06-01 15:52] LABS: Alanine Aminotransferase 70 IU/L (<35); Albumin 4.7 g/dL (3.5-5.0); Albumin Globulin Ratio 1.4 (1.0-2.8); Alkaline Phosphatase 44 U/L (38-126); Aspartate Aminotransferase 85 IU/L (14-36); Bilirubin Total 1.2 mg/dL (0.2-1.3); Blood Urea Nitrogen 21 mg/dL (7-17); Calcium 10.3 mg/dL (8.4-10.2); Carbon Dioxide 30 mmol/L (22-32); Chloride 102 mmol/L (98-107); Estimated Glomerular Filt Rate > 60.0 mL/min (>60); Globulin 3.4 g/dL (1.7-4.1); Glucose 82 mg/dL (70-100); HEMOLYSIS < 15 (0-50); Potassium 3.5 mmol/L (3.4-5.1); Sodium 140 mmol/L (137-145); Total Protein 8.1 g/dL (6.3-8.2)
[2019-06-01 16:23] LABS: Thyroid Stimulating Hormone 0.02 uIU/mL (0.47-4.68)
== END ==
PROVIDERS: PCP Registered Nurse; Visit Provider Nurse Practitioner Family
DX: R00.2 Palpitations (principal)
CPT/HCPCS: 36415; 80053; 84443

== ENCOUNTER → 2019-08-24 14:29 | Outpatient (CLI) | payer OTHER, MEDICAID, SELFPAY ==
[2019-08-24 15:46] LABS: Add Manual Diff / Slide Review NO; Basophils Absolute Auto 0 /uL (0-100); Basophils Percent Auto 0.4 % (0-2); Eosinophils Absolute Auto 200 /uL (0-450); Eosinophils Percent Auto 2.4 % (2-4); Hematocrit 40.7 % (36-46); Lymphocytes Absolute Auto 1400 /uL (1100-4500); Lymphocytes Percent Auto 22.3 % (25-40); Mean Corpuscular HGB Conc 34.4 % (30-36); Mean Corpuscular Hemoglobin 33.9 PG (26-34); Mean Corpuscular Volume 98.6 fL (80-100); Monocytes Absolute Auto 600 /uL (0-900); Monocytes Percent Auto 9.2 % (3-14); Neutrophils Absolute Auto 4100 /uL (1500-7000); Neutrophils Percent Auto 65.7 % (50-75); Platelet Count 130 X10^3/uL (150-400); Red Blood Cell Count 4.13 X10^6/uL (4.0-5.2); Red Cell Distribution Width 13.5 % (11.6-14.8); White Blood Cell Count 6.2 X10^3/uL (4.5-11.0)
[2019-08-24 15:56] LABS: Alanine Aminotransferase 50 IU/L (<35); Albumin 4.7 g/dL (3.5-5.0); Albumin Globulin Ratio 1.2 (1.0-2.8); Alkaline Phosphatase 62 U/L (38-126); Aspartate Aminotransferase 68 IU/L (14-36); Bilirubin Direct 0.2 mg/dL (0.0-0.4); Blood Urea Nitrogen 18 mg/dL (7-17); Calcium 10.4 mg/dL (8.4-10.2); Carbon Dioxide 27 mmol/L (22-32); Chloride 100 mmol/L (98-107); Estimated Glomerular Filt Rate > 60.0 mL/min (>60); Glucose 91 mg/dL (70-100); HEMOLYSIS < 15 (0-50); Sodium 139 mmol/L (137-145); Total Protein 8.7 g/dL (6.3-8.2)
[2019-08-24 16:09] LABS: INR 1.2 (0.9-1.3); Prothrombin Time 13.6 SECONDS (10.1-12.7)
[2019-08-24 16:28] LABS: Free T3, Triiodothyronine Free 2.71 pg/mL (2.77-5.27); Free T4, Direct Thyroxine 1.07 ng/dL (0.78-2.19)
[2019-08-27 14:56] LABS: Alpha Fetoprotein 6.8 ng/mL (< 6.1)
== END ==
PROVIDERS: PCP Nurse Practitioner; Referring Provider Internal Medicine Endocrinology, Diabetes & Metabolism; Visit Provider Internal Medicine Endocrinology, Diabetes & Metabolism
DX: E03.8 Other specified hypothyroidism (principal)
CPT/HCPCS: 36415; 80053; 82105; 82248; 84439; 84443; 84481; 85025; 85610

== ENCOUNTER → 2019-10-06 10:09 | Outpatient (CLI) | payer OTHER, MEDICAID, SELFPAY ==
[2019-10-06 12:25] LABS: Influenza A - CEPHEID Flu A NEGATIVE (NEGATIVE); Influenza B - CEPHEID Flu B NEGATIVE (NEGATIVE)
[2019-10-08 19:38] LABS: COVID19 Sendout Not Detected (Not Detected)
== END ==
PROVIDERS: PCP Nurse Practitioner; Visit Provider Family Medicine
DX: R05 Cough (principal)
CPT/HCPCS: 87502; 87635

== ENCOUNTER → 2019-12-12 14:45 | Outpatient (CLI) | payer OTHER, MEDICAID, SELFPAY ==
[2019-12-12 16:23] LABS: Alanine Aminotransferase 92 IU/L (<35); Albumin Globulin Ratio 1.2 (1.0-2.8); Alkaline Phosphatase 59 U/L (38-126); Aspartate Aminotransferase 124 IU/L (14-36); Bilirubin Total 0.8 mg/dL (0.2-1.3); Blood Urea Nitrogen 16 mg/dL (7-17); Calcium 11.1 mg/dL (8.4-10.2); Carbon Dioxide 26 mmol/L (22-32); Chloride 96 mmol/L (98-107); Estimated Glomerular Filt Rate > 60.0 mL/min (>60); Globulin 4.3 g/dL (1.7-4.1); Glucose 73 mg/dL (70-100); HEMOLYSIS < 15 (0-50); Potassium 4.5 mmol/L (3.4-5.1); Sodium 138 mmol/L (137-145); Total Protein 9.3 g/dL (6.3-8.2)
[2019-12-12 17:12] LABS: Free T3, Triiodothyronine Free 5.87 pg/mL (2.77-5.27); Free T4, Direct Thyroxine 1.43 ng/dL (0.78-2.19)
[2019-12-12 17:25] LABS: Thyroid Stimulating Hormone 0.08 uIU/mL (0.47-4.68)
[2019-12-13 10:15] LABS: Calcium 10.7 mg/dL (8.7-10.2); Parathyroid Hormone, Intact 32 pg/mL (15-65)
== END ==
PROVIDERS: PCP Nurse Practitioner; Referring Provider Nurse Practitioner; Visit Provider Nurse Practitioner
DX: E03.9 Hypothyroidism, unspecified (principal); F32.9 Major depressive disorder, single episode, unspecified; F41.9 Anxiety disorder, unspecified; R00.2 Palpitations; F43.10 Post-traumatic stress disorder, unspecified; E83.52 Hypercalcemia; K72.90 Hepatic failure, unspecified without coma; R79.89 Other specified abnormal findings of blood chemistry; R18.8 Other ascites; Z79.899 Other long term (current) drug therapy
CPT/HCPCS: 36415; 80053; 82310; 83970; 84439; 84443; 84481

== ENCOUNTER → 2020-01-25 10:47 | Outpatient (CLI) | payer OTHER, MEDICAID, SELFPAY ==
--- NOTE | 2020-01-25 10:48 | DI.MG.S_ITS ---
BILATERAL DIGITAL SCREENING MAMMOGRAM 3D/2D WITH CAD: 01/25/2020 CLINICAL: Routine screening. Family history of breast cancer. Comparison is made to exams dated: 11/17/2018 mammogram, 12/01/2014 mammogram, and 07/10/2010 mammogram - [facility]. The tissue of both breasts is heterogeneously dense. This may lower the sensitivity of mammography. Current study was also evaluated with a Computer Aided Detection (CAD) system. There is a possible developing asymmetry in the left breast middle depth central to the nipple seen on the craniocaudal view only. This is more prominent. No other significant masses, calcifications, or other findings are seen in either breast. IMPRESSION: INCOMPLETE: NEEDS ADDITIONAL IMAGING EVALUATION The possible developing asymmetry in the left breast is indeterminate. Additional views with possible ultrasound are recommended. This exam was interpreted at Station ID: [id number]. NOTE: For mammograms, a report in lay terms will be sent to the patient. Approximately 15% of breast malignancies will not be visualized mammographically. In the management of a palpable breast mass, a negative mammogram must not discourage biopsy of a clinically suspicious lesion. Electronically Signed By: La armas/shayan:01/25/2020 16:13:09 letter sent: Additional Imaging Needed ACR BI-RADS Category 0: Incomplete [id number]
== END ==
PROVIDERS: PCP Nurse Practitioner; Referring Provider Nurse Practitioner; Visit Provider Nurse Practitioner
DX: Z12.31 Encounter for screening mammogram for malignant neoplasm of breast (principal); Z80.3 Family history of malignant neoplasm of breast
CPT/HCPCS: 77063; 77067

== ENCOUNTER → 2020-01-27 15:18 | Outpatient (CLI) | payer OTHER, MEDICAID, SELFPAY ==
[2020-01-30 07:10] LABS: COVID19 Sendout Not Detected (Not Detected)
== END ==
PROVIDERS: PCP Nurse Practitioner; Visit Provider Nurse Practitioner
DX: Z03.818 Encounter for observation for suspected exposure to other biological agents ruled out (principal)
CPT/HCPCS: 87635

== ENCOUNTER → 2020-02-14 13:19 | Outpatient (CLI) | payer OTHER, MEDICAID, SELFPAY ==
--- NOTE | 2020-02-14 13:20 | DI.MG.S_ITS ---
UNILATERAL LEFT DIGITAL DIAGNOSTIC MAMMOGRAM 3D/2D WITH ADDITIONAL VIEWS: 02/14/2020 CLINICAL: Additional evaluation requested from prior study. Comparison is made to exams dated: 01/25/2020 mammogram, 11/17/2018 mammogram, and 12/01/2014 mammogram - [facility]. The tissue of left breast is heterogeneously dense. This may lower the sensitivity of mammography. The previously seen asymmetry in the left breast middle depth seen on craniocaudal view only on the exam from 01/25/2020 is no longer visualized and presumably represents normal superimposed breast tissue. No significant masses, calcifications, or other findings are seen in the breast. IMPRESSION: NEGATIVE There is no mammographic evidence of malignancy. A 1 year screening mammogram is recommended. This exam was interpreted at Station ID: [id number]. NOTE: For mammograms, a report in lay terms will be sent to the patient. Approximately 15% of breast malignancies will not be visualized mammographically. In the management of a palpable breast mass, a negative mammogram must not discourage biopsy of a clinically suspicious lesion. Electronically Signed By: López martinez/shayan:02/14/2020 13:49:33 letter sent: Normal Exam ACR BI-RADS Category 1: Negative [id number]
== END ==
PROVIDERS: PCP Nurse Practitioner; Referring Provider Nurse Practitioner; Visit Provider Nurse Practitioner
DX: R92.8 Other abnormal and inconclusive findings on diagnostic imaging of breast (principal)
CPT/HCPCS: 77065; G0279

== ENCOUNTER → 2020-03-14 12:47 | Outpatient (CLI) | payer OTHER, MEDICAID, SELFPAY ==
[2020-03-14 14:42] LABS: Alanine Aminotransferase 69 IU/L (<35); Albumin 4.1 g/dL (3.5-5.0); Albumin Globulin Ratio 1.3 (1.0-2.8); Alkaline Phosphatase 59 U/L (38-126); Aspartate Aminotransferase 102 IU/L (14-36); BUN Creatinine Ratio 26.2 (6-22); Bilirubin Direct 0.2 mg/dL (0.0-0.4); Blood Urea Nitrogen 17 mg/dL (7-17); Calcium 9.5 mg/dL (8.4-10.2); Carbon Dioxide 25 mmol/L (22-32); Chloride 106 mmol/L (98-107); Estimated Glomerular Filt Rate > 60.0 mL/min (>60); Globulin 3.2 g/dL (1.7-4.1); Glucose 81 mg/dL (80-110); HEMOLYSIS < 15 (0-50); Potassium 3.5 mmol/L (3.4-5.1); Sodium 139 mmol/L (137-145); Total Protein 7.3 g/dL (6.3-8.2)
== END ==
PROVIDERS: PCP Nurse Practitioner; Referring Provider Internal Medicine Gastroenterology; Visit Provider Internal Medicine Gastroenterology
DX: E83.52 Hypercalcemia (principal); R18.8 Other ascites
CPT/HCPCS: 36415; 80053; 82248

== ENCOUNTER → 2020-04-24 11:26 | Outpatient (CLI) | payer OTHER, MEDICAID, SELFPAY ==
[2020-04-24 13:57] LABS: Influenza A - CEPHEID Flu A NEGATIVE (NEGATIVE); Influenza B - CEPHEID Flu B NEGATIVE (NEGATIVE)
== END ==
PROVIDERS: PCP Nurse Practitioner; Visit Provider Physician Assistant
DX: R68.89 Other general symptoms and signs (principal)
CPT/HCPCS: 87502

== ENCOUNTER → 2020-05-15 15:35 | Outpatient (CLI) | payer OTHER, MEDICAID, SELFPAY ==
[2020-05-15 17:11] LABS: Free T3, Triiodothyronine Free 2.96 pg/mL (2.77-5.27); Free T4, Direct Thyroxine 0.96 ng/dL (0.78-2.19)
[2020-05-15 17:25] LABS: Thyroid Stimulating Hormone 1.06 uIU/mL (0.47-4.68)
== END ==
PROVIDERS: PCP Nurse Practitioner; Referring Provider Internal Medicine Endocrinology, Diabetes & Metabolism; Visit Provider Internal Medicine Endocrinology, Diabetes & Metabolism
DX: E03.8 Other specified hypothyroidism (principal)
CPT/HCPCS: 36415; 84439; 84443; 84481

== ENCOUNTER → 2020-06-16 13:41 | Outpatient (CLI) | payer OTHER, MEDICAID, SELFPAY ==
[2020-06-16 15:28] LABS: COVID19 -Nasal RAPID Negative (Negative)
== END ==
PROVIDERS: PCP Nurse Practitioner; Visit Provider Physician Assistant
DX: Z11.59 Encounter for screening for other viral diseases (principal)
CPT/HCPCS: 87635

== ENCOUNTER → 2020-09-05 16:11 | Outpatient (CLI) | payer OTHER, MEDICAID, SELFPAY ==
[2020-09-05 18:18] LABS: Add Manual Diff / Slide Review NO; Basophils Absolute Auto 0 /uL (0-100); Basophils Percent Auto 1.1 % (0-2); Eosinophils Absolute Auto 100 /uL (0-450); Eosinophils Percent Auto 2.1 % (2-4); Hematocrit 38.5 % (36-46); Lymphocytes Absolute Auto 1200 /uL (1100-4500); Lymphocytes Percent Auto 30.7 % (25-40); Mean Corpuscular HGB Conc 33.7 % (30-36); Mean Corpuscular Volume 100.9 fL (80-100); Monocytes Absolute Auto 500 /uL (0-900); Monocytes Percent Auto 13.8 % (3-14); Neutrophils Absolute Auto 2100 /uL (1500-7000); Neutrophils Percent Auto 52.3 % (50-75); Platelet Count 102 X10^3/uL (150-400); Red Blood Cell Count 3.82 X10^6/uL (4.0-5.2); Red Cell Distribution Width 16.4 % (11.6-14.8)
[2020-09-05 18:37] LABS: Alanine Aminotransferase 67 IU/L (<35); Albumin 4.5 g/dL (3.5-5.0); Albumin Globulin Ratio 1.1 (1.0-2.8); Alkaline Phosphatase 72 U/L (38-126); Aspartate Aminotransferase 100 IU/L (14-36); BUN Creatinine Ratio 15.1 (6-22); Bilirubin Direct 0.2 mg/dL (0.0-0.4); Bilirubin Total 0.8 mg/dL (0.2-1.3); Blood Urea Nitrogen 11 mg/dL (7-17); Calcium 10.5 mg/dL (8.4-10.2); Carbon Dioxide 26 mmol/L (22-32); Chloride 104 mmol/L (98-107); Estimated Glomerular Filt Rate > 60.0 mL/min (>60); Globulin 4.2 g/dL (1.7-4.1); Glucose 80 mg/dL (80-110); HEMOLYSIS < 15 (0-50); Potassium 3.4 mmol/L (3.4-5.1); Sodium 138 mmol/L (137-145); Total Protein 8.7 g/dL (6.3-8.2)
[2020-09-05 18:39] LABS: INR 1.4 (0.9-1.3); Prothrombin Time 15.9 SECONDS (10.1-12.7)
[2020-09-05 18:52] LABS: Free T3, Triiodothyronine Free 2.98 pg/mL (2.77-5.27); Free T4, Direct Thyroxine 1.07 ng/dL (0.78-2.19)
[2020-09-05 19:05] LABS: Thyroid Stimulating Hormone 39.9 uIU/mL (0.47-4.68)
[2020-09-07 07:36] LABS: Alpha Fetoprotein 8.3 ng/mL (0.0-8.3)
== END ==
PROVIDERS: PCP Nurse Practitioner; Referring Provider Internal Medicine Endocrinology, Diabetes & Metabolism; Visit Provider Internal Medicine Endocrinology, Diabetes & Metabolism
DX: E03.8 Other specified hypothyroidism (principal); K70.30 Alcoholic cirrhosis of liver without ascites; R18.8 Other ascites; K72.90 Hepatic failure, unspecified without coma
CPT/HCPCS: 36415; 80053; 82105; 82248; 84439; 84443; 84481; 85025; 85610

== ENCOUNTER 2020-10-30 10:07 | Emergency (ER) | payer OTHER, MEDICAID, SELFPAY ==
[2020-10-30] VITALS (35 sets, daily range): BP systolic 85–140; BP diastolic 54–88; PULSE 76–96; RESP 18–29; TEMP 36.8; O2SAT 90–99; BMI 22.8
--- NOTE | 2020-10-30 10:36 | ED.GIBLEED ---
HPI - GI Bleed <Tiana Walton MD - Last Filed: 10/30/20 18:25> General Chief complaint: GI Bleed Stated complaint: internal bleeding/rectal bleed x7 days Time Seen by Provider: 10/30/20 10:08 History of Present Illness HPI Narrative: 60-year-old lady with a history of alcohol use disorder in multiple prior visits to the ER for alcohol-related issues, hypothyroidism and alcohol related cirrhosis recently able to stop her Lasix and spironolactone as she has had minimal ascites. She is followed by Gastroenterology in [place]. She has had multiple GI bleeds previously. She presents saying that she has had at least 3 episodes of black emesis and black stool. She states that she has had a ?tough week?. She describes spotty vision general weakness feeling dehydrated, a sense of being uncomfortable without significant pain, decreased ability to eat with early satiety, increased heart rate with episodes of palpitations, hoarseness increased dyspnea and overall lightheadedness to the point where she is afraid to walk or climb ladders to do work around the home. She states that she is drinking only occasionally, once a week, maybe 2 or 3 times a week Related Data Home Medications Medication Instructions Recorded Confirmed nadolol 30 mg PO DAILY 04/23/18 10/09/20 liothyronine 5 mcg tablet 10 mcg PO DAILY tab 05/31/18 10/09/20 lactulose 15 - 30 ml PO 1-2XD 12/27/18 10/09/20 levothyroxine 100 mcg capsule 100 mcg PO DAILY 12/19/19 10/09/20 furosemide 20 mg tablet 20 mg PO DAILY PRN 04/17/20 10/09/20 spironolactone 100 mg tablet 100 mg PO DAILY PRN 04/17/20 10/09/20 Previous Rx's Medication Instructions Recorded Xifaxan 550 mg PO BID #60 tab 09/16/16 lorazepam 1 mg tablet 1 mg PO DAILY #30 tab 06/29/20 nortriptyline 25 mg capsule 25 mg PO BEDTIME PRN #30 cap 07/24/20 gabapentin 300 mg capsule 300 mg PO QID #360 cap 10/09/20 Allergies Allergy/AdvReac Type Severity Reaction Status Date / Time No Known Drug Allergies Allergy Verified 10/09/20 11:01 Review of Systems <Tiana Walton MD - Last Filed: 10/30/20 18:25> Review of Systems Narrative: Remainder of complete review of systems is otherwise unremarkable except for that included in the HPI. Patient History <Tiana Walton MD - Last Filed: 10/30/20 18:25> Medical History Anxiety Ascites due to alcoholic cirrhosis Cardiac arrhythmia Chicken pox Cirrhosis (2012) Coagulation disorder (2012) Eczema (2014) EV (esophageal varices) (10/2015) GERD (gastroesophageal reflux disease) GI bleeding (2015) History of blood transfusion (10/2015) History of heavy periods (2014) Hypercalcemia Hypertension Hypothyroidism Intermittent palpitations (04/2019) Measles Mumps Nonalcoholic fatty liver disease Ovarian cyst (2012) Painful menstrual periods (2012) Pancreatitis Portal hypertensive gastropathy (05/2015) Psoriasis (2014) PTSD (post-traumatic stress disorder) (1999) SBO (small bowel obstruction) Shortness of breath Weight gain Surgical History H/O bilateral oophorectomy History of appendectomy History of cholecystectomy History of esophagogastroduodenoscopy (EGD) (01/2009) History of esophagogastroduodenoscopy (EGD) (05/2015) History of inguinal hernia repair Status post appendectomy Status post colonoscopy (01/2009) Status post hernia repair Status post hysteroscopy (06/17/11) Status post laparoscopic supracervical hysterectomy (08/25/16) Family History Grandfather Heart disease VT (myocardial infarction) Grandmother Alcoholism Father No problems noted. Mother No problems noted. Grandfather Heart disease Grandmother Colon cancer Brother No problems noted. Social History Smoking Status: Never smoker alcohol intake: current Smoking Status: Never smoker alcohol intake frequency: 3 or more drinks per day Substance Use Type: does not use Exam <Tiana Walton MD - Last Filed: 10/30/20 18:25> Narrative Exam Narrative: General: Pale appearing, in no acute distress. Able to give a complete and coherent history. Well-nourished well-developed HEENT: Dry mucous membranes, normal sclera with reactive pupils, Neck: No JVD, supple Respiratory: Lungs are clear to auscultation, no wheezing no rales no rhonchi. Full and symmetrical air movement Cardiac: Regular rate and rhythm no murmurs no bruits Abdomen: Soft, mildly distended but otherwise nontender, hyperactive bowel tones, no flank pain, she does have black guaiac-positive stool Skin: Warm and dry, no rashes Neurologic: Globally weak but Grossly neurologically intact with no obvious asymmetries or abnormalities Extremities: No trauma, well perfused Psych: Cooperative, appropriate insight and affect Initial Vital Signs Initial Vital Signs: Vital Signs Temperature 98.2 F 10/30/20 10:18 Pulse Rate 96 H 10/30/20 10:18 Respiratory Rate 18 10/30/20 10:18 Blood Pressure 139/88 10/30/20 10:18 Pulse Oximetry 99 10/30/20 10:18 <Tima Nelson DO - Last Filed: 10/31/20 06:14> Initial Vital Signs Initial Vital Signs: Vital Signs Temperature 98.2 F 10/30/20 10:18 Pulse Rate 96 H 10/30/20 10:18 Respiratory Rate 18 10/30/20 10:18 Blood Pressure 139/88 10/30/20 10:18 Pulse Oximetry 99 10/30/20 10:18 Course <Tiana Walton MD - Last Filed: 10/30/20 18:25> Orders Ordered: Gabapentin (Gabapentin 300 Mg Capsule) 300 mg PO TID AGNIESZKA Last Admin: 10/30/20 20:48 Dose: 300 mg Documented by: TANNA Octreotide Acetate 500 mcg/ (Sodium Chloride) 101 mls @ 5.05 mls/hr IV CONT AGNIESZKA; Protocol Last Admin: 10/31/20 06:00 Dose: 25 mcg/hr, 5.05 mls/hr Documented by: Infusion: 10/31/20 06:00 Dose: 25 mcg/hr, 5.05 mls/hr Documented by: Admin: 10/30/20 11:30 Dose: 25 mcg/hr, 5.05 mls/hr Documented by: ELBAIEDLE Sodium Chloride (Normal Saline 0.9%) 1,000 mls @ 150 mls/hr IV CONT AGNIESZKA Last Admin: 10/31/20 01:33 Dose: 100 mls/hr Documented by: Infusion: 10/31/20 01:26 Dose: 0 mls/hr Documented by: Admin: 10/30/20 18:44 Dose: 150 mls/hr Documented by: RAMON Pantoprazole Sodium 80 mg/ (Sodium Chloride) 100 mls @ 10 mls/hr IV CONT AGNIESZKA Last Admin: 10/30/20 21:14 Dose: 8 mg/hr, 10 mls/hr Documented by: TANNA Lorazepam (Lorazepam 0.5 Mg Tablet) 1 mg PO BEDTIME AGNIESZKA Last Admin: 10/30/20 20:48 Dose: 1 mg Documented by: TANNA Nortriptyline HCl (Nortriptyline Hcl 25 Mg Capsule) 25 mg PO BEDTIME [facility] Last Admin: 10/30/20 20:48 Dose: 25 mg Documented by: TANNA Rifaximin (Rifaximin 550 Mg Tablet) 550 mg PO BID [facility] Last Admin: 10/30/20 20:47 Dose: 550 mg Documented by: TANNA Discontinued Medications Al Hydrox/Mg Hydrox/Simethicone 20 ml/ Lidocaine HCl 15 ml 0 ml PO NOW ONE Stop: 10/30/20 12:57 Last Admin: 10/30/20 13:15 Dose: 20 ml Documented by: RAMON Gabapentin (Gabapentin 300 Mg Capsule) 300 mg PO NOW ONE Stop: 10/30/20 15:03 Last Admin: 10/30/20 15:15 Dose: 300 mg Documented by: RAMON Gabapentin (Gabapentin 300 Mg Capsule) 300 mg PO NOW ONE Stop: 10/30/20 23:42 Last Admin: 10/30/20 23:46 Dose: 300 mg Documented by: TANNA Hydromorphone HCl (Hydromorphone 0.5 Mg Inj) 0.5 mg IV NOW ONE Stop: 10/30/20 12:00 Last Admin: 10/30/20 12:15 Dose: 0.5 mg Documented by: RAMON Hydromorphone HCl (Hydromorphone 0.5 Mg Inj) 0.5 mg IV NOW ONE Stop: 10/30/20 18:27 Last Admin: 10/30/20 18:44 Dose: 0.5 mg Documented by: RAMON Hydromorphone HCl (Hydromorphone 0.5 Mg Inj) 0.5 mg IV NOW ONE Stop: 10/31/20 03:37 Last Admin: 10/31/20 03:39 Dose: 0.5 mg Documented by: TANNA Pantoprazole Sodium 80 mg/ (Sodium Chloride) 100 mls @ 10 mls/hr IV CONT AGNIESZKA Last Infusion: 10/30/20 21:15 Dose: 0 mg/hr, 0 mls/hr Documented by: Admin: 10/30/20 11:31 Dose: 8 mg/hr, 10 mls/hr Documented by: RAMON Sodium Chloride (Normal Saline 0.9%) 1,000 mls @ 1,000 mls/hr IV BOLUS ONE Stop: 10/30/20 11:52 Last Infusion: 10/30/20 12:57 Dose: 0 mls/hr Documented by: Admin: 10/30/20 11:30 Dose: 1,000 mls/hr Documented by: RAMON Potassium Chloride 20 meq/ (Sodium Chloride) 260 mls @ 130 mls/hr IV NOW ONE Stop: 10/30/20 14:41 Last Infusion: 10/30/20 15:32 Dose: 0 mls/hr Documented by: RAMON Cosigned by: SIRENA Admin: 10/30/20 13:15 Dose: 130 mls/hr Documented by: RAMON Cosigned by: SIRENA Nadolol (Nadolol 40 Mg Tablet) 30 mg PO NOW ONE Stop: 10/30/20 21:01 Last Admin: 10/30/20 21:12 Dose: 30 mg Documented by: TANNA Ondansetron HCl (Ondansetron 4 Mg/2 Ml Inj) 4 mg IV NOW ONE Stop: 10/30/20 20:10 Last Admin: 10/30/20 20:48 Dose: 4 mg Documented by: TANNA Pantoprazole Sodium (Pantoprazole 40 Mg Vial) 40 mg IV NOW ONE Stop: 10/30/20 10:54 Last Admin: 10/30/20 11:31 Dose: 40 mg Documented by: CSIEDLE Vital Signs Vital signs: Vital Signs - 8 hr 10/30/20 22:30 10/30/20 23:00 10/30/20 23:30 Pulse Rate 82 81 85 Blood Pressure 108/67 Pulse Oximetry 92 91 94 10/30/20 23:55 10/31/20 00:00 10/31/20 00:30 Pulse Rate 91 H 88 86 Blood Pressure 120/74 106/71 Pulse Oximetry 96 95 92 10/31/20 01:00 10/31/20 01:30 10/31/20 02:00 Pulse Rate 85 83 82 Blood Pressure 112/76 121/79 Pulse Oximetry 92 92 93 10/31/20 02:30 10/31/20 03:00 10/31/20 03:30 Pulse Rate 80 80 80 Blood Pressure 113/85 Pulse Oximetry 93 94 92 10/31/20 03:48 10/31/20 04:00 10/31/20 04:30 Pulse Rate 79 78 Blood Pressure 120/77 Pulse Oximetry 96 93 94 <Tima Nelson, - Last Filed: 10/31/20 06:14> Orders Ordered: Gabapentin (Gabapentin 300 Mg Capsule) 300 mg PO TID AGNIESZKA Last Admin: 10/30/20 20:48 Dose: 300 mg Documented by: TANNA Octreotide Acetate 500 mcg/ (Sodium Chloride) 101 mls @ 5.05 mls/hr IV CONT AGNIESZKA; Protocol Last Admin: 10/31/20 06:00 Dose: 25 mcg/hr, 5.05 mls/hr Documented by: Infusion: 10/31/20 06:00 Dose: 25 mcg/hr, 5.05 mls/hr Documented by: Admin: 10/30/20 11:30 Dose: 25 mcg/hr, 5.05 mls/hr Documented by: ELEONORALE Sodium Chloride (Normal Saline 0.9%) 1,000 mls @ 150 mls/hr IV CONT AGNIESZKA Last Admin: 10/31/20 01:33 Dose: 100 mls/hr Documented by: Infusion: 10/31/20 01:26 Dose: 0 mls/hr Documented by: Admin: 10/30/20 18:44 Dose: 150 mls/hr Documented by: ELEONORALE Pantoprazole Sodium 80 mg/ (Sodium Chloride) 100 mls @ 10 mls/hr IV CONT [facility] Last Admin: 10/30/20 21:14 Dose: 8 mg/hr, 10 mls/hr Documented by: TANNA Lorazepam (Lorazepam 0.5 Mg Tablet) 1 mg PO BEDTIME [facility] Last Admin: 10/30/20 20:48 Dose: 1 mg Documented by: TANNA Nortriptyline HCl (Nortriptyline Hcl 25 Mg Capsule) 25 mg PO BEDTIME [facility] Last Admin: 10/30/20 20:48 Dose: 25 mg Documented by: TANNA Rifaximin (Rifaximin 550 Mg Tablet) 550 mg PO BID [facility] Last Admin: 10/30/20 20:47 Dose: 550 mg Documented by: TANNA Discontinued Medications Al Hydrox/Mg Hydrox/Simethicone 20 ml/ Lidocaine HCl 15 ml 0 ml PO NOW ONE Stop: 10/30/20 12:57 Last Admin: 10/30/20 13:15 Dose: 20 ml Documented by: RAMON Gabapentin (Gabapentin 300 Mg Capsule) 300 mg PO NOW ONE Stop: 10/30/20 15:03 Last Admin: 10/30/20 15:15 Dose: 300 mg Documented by: RAMON Gabapentin (Gabapentin 300 Mg Capsule) 300 mg PO NOW ONE Stop: 10/30/20 23:42 Last Admin: 10/30/20 23:46 Dose: 300 mg Documented by: TANNA Hydromorphone HCl (Hydromorphone 0.5 Mg Inj) 0.5 mg IV NOW ONE Stop: 10/30/20 12:00 Last Admin: 10/30/20 12:15 Dose: 0.5 mg Documented by: RAMON Hydromorphone HCl (Hydromorphone 0.5 Mg Inj) 0.5 mg IV NOW ONE Stop: 10/30/20 18:27 Last Admin: 10/30/20 18:44 Dose: 0.5 mg Documented by: RAMON Hydromorphone HCl (Hydromorphone 0.5 Mg Inj) 0.5 mg IV NOW ONE Stop: 10/31/20 03:37 Last Admin: 10/31/20 03:39 Dose: 0.5 mg Documented by: TANNA Pantoprazole Sodium 80 mg/ (Sodium Chloride) 100 mls @ 10 mls/hr IV CONT AGNIESZKA Last Infusion: 10/30/20 21:15 Dose: 0 mg/hr, 0 mls/hr Documented by: Admin: 10/30/20 11:31 Dose: 8 mg/hr, 10 mls/hr Documented by: RAMON Sodium Chloride (Normal Saline 0.9%) 1,000 mls @ 1,000 mls/hr IV BOLUS ONE Stop: 10/30/20 11:52 Last Infusion: 10/30/20 12:57 Dose: 0 mls/hr Documented by: Admin: 10/30/20 11:30 Dose: 1,000 mls/hr Documented by: RAMON Potassium Chloride 20 meq/ (Sodium Chloride) 260 mls @ 130 mls/hr IV NOW ONE Stop: 10/30/20 14:41 Last Infusion: 10/30/20 15:32 Dose: 0 mls/hr Documented by: RAMON Cosigned by: SIRENA Admin: 10/30/20 13:15 Dose: 130 mls/hr Documented by: RAMON Cosigned by: SIRENA Nadolol (Nadolol 40 Mg Tablet) 30 mg PO NOW ONE Stop: 10/30/20 21:01 Last Admin: 10/30/20 21:12 Dose: 30 mg Documented by: TANNA Ondansetron HCl (Ondansetron 4 Mg/2 Ml Inj) 4 mg IV NOW ONE Stop: 10/30/20 20:10 Last Admin: 10/30/20 20:48 Dose: 4 mg Documented by: TANNA Pantoprazole Sodium (Pantoprazole 40 Mg Vial) 40 mg IV NOW ONE Stop: 10/30/20 10:54 Last Admin: 10/30/20 11:31 Dose: 40 mg Documented by: RAMON Vital Signs Vital signs: Vital Signs - 8 hr 10/30/20 22:30 10/30/20 23:00 10/30/20 23:30 Pulse Rate 82 81 85 Blood Pressure 108/67 Pulse Oximetry 92 91 94 10/30/20 23:55 10/31/20 00:00 10/31/20 00:30 Pulse Rate 91 H 88 86 Blood Pressure 120/74 106/71 Pulse Oximetry 96 95 92 10/31/20 01:00 10/31/20 01:30 10/31/20 02:00 Pulse Rate 85 83 82 Blood Pressure 112/76 121/79 Pulse Oximetry 92 92 93 10/31/20 02:30 10/31/20 03:00 10/31/20 03:30 Pulse Rate 80 80 80 Blood Pressure 113/85 Pulse Oximetry 93 94 92 10/31/20 03:48 10/31/20 04:00 10/31/20 04:30 Pulse Rate 79 78 Blood Pressure 120/77 Pulse Oximetry 96 93 94 MDM - GI Bleed <Tiana Walton MD - Last Filed: 10/30/20 18:25> Medical Records Attestation: I reviewed the patient's medical records. Lab Data Attestation: I reviewed the patient's lab results. Result diagrams: 10/30/20 15:00 10/30/20 10:25 Labs: Lab Results 10/30/20 10/30/20 10/30/20 Range/Units 10:25 10:25 10:25 WBC 7.3 (4.5-11.0) X10^3/uL RBC 3.99 L (4.0-5.2) X10^6/uL Hgb 13.4 (12.0-16.0) g/dL Hct 39.8 (36-46) % MCV 99.8 (80-100) fL MCH 33.7 (26-34) PG MCHC 33.7 (30-36) % RDW 13.5 (11.6-14.8) % Plt Count 134 L (150-400) X10^3/uL Neut % (Auto) 53.7 (50-75) % Lymph % (Auto) 34.1 (25-40) % [place] % (Auto) 8.1 (3-14) % Eos % (Auto) 3.3 (2-4) % Baso % (Auto) 0.8 (0-2) % Neut # (Auto) 3900 (8780-1231) /uL Lymph # (Auto) 2500 (0438-7911) /uL [place] # (Auto) 600 (0-900) /uL Eos # (Auto) 200 (0-450) /uL Baso # (Auto) 100 (0-100) /uL PT 14.4 H (10.1-12.7) SECONDS INR 1.3 (0.9-1.3) APTT 37 H (26.4-36.2) SECONDS Sodium 144 (137-145) mmol/L Potassium 3.2 L (3.4-5.1) mmol/L Chloride 110 H (98-107) mmol/L Carbon Dioxide 22 (22-32) mmol/L BUN 17 (7-17) mg/dL Creatinine 0.58 (0.52-1.04) mg/dL Estimated GFR > 60.0 (>60) mL/min BUN/Creatinine Ratio 29.3 H (6-22) Glucose 96 (80-110) mg/dL Calcium 9.6 (8.4-10.2) mg/dL Magnesium (1.6-2.3) mg/dL Total Bilirubin 0.7 (0.2-1.3) mg/dL AST 165 H (14-36) IU/L ALT 87 H (<35) IU/L Alkaline Phosphatase 68 (38-126) U/L Ammonia (9-30) umol/L Total Protein 8.6 H (6.3-8.2) g/dL Albumin 4.5 (3.5-5.0) g/dL Globulin 4.1 (1.7-4.1) g/dL Albumin/Globulin Ratio 1.1 (1.0-2.8) Urine Color Urine Appearance Urine pH (4.5-8.0) Ur Specific [place] (1.000-1.035) Urine Protein (Negative) Urine Glucose (UA) (Negative) g/dL Urine Ketones (NEGATIVE) Urine Occult Blood (Negative) Urine Nitrate (Negative) Urine Bilirubin (NEGATIVE) Urine Urobilinogen (0.2) E.U./dL Ur Leukocyte Esterase (NEGATIVE) Urine RBC (0-5/HPF) Urine WBC (0-5/HPF) Ur Squamous Epith Cells (0-5/HPF) Urine Bacteria (None) Urine Mucus (Negative) Ur Culture Indicated? SARS-CoV-2 (PCR) (Negative) Blood Type Antibody Screen 10/30/20 10/30/20 10/30/20 Range/Units 10:25 10:25 11:22 WBC (4.5-11.0) X10^3/uL RBC (4.0-5.2) X10^6/uL Hgb (12.0-16.0) g/dL Hct (36-46) % MCV (80-100) fL MCH (26-34) PG MCHC (30-36) % RDW (11.6-14.8) % Plt Count (150-400) X10^3/uL Neut % (Auto) (50-75) % Lymph % (Auto) (25-40) % [place] % (Auto) (3-14) % Eos % (Auto) (2-4) % Baso % (Auto) (0-2) % Neut # (Auto) (3129-4639) /uL Lymph # (Auto) (9894-9054) /uL [place] # (Auto) (0-900) /uL Eos # (Auto) (0-450) /uL Baso # (Auto) (0-100) /uL PT (10.1-12.7) SECONDS INR (0.9-1.3) APTT (26.4-36.2) SECONDS Sodium (137-145) mmol/L Potassium (3.4-5.1) mmol/L Chloride (98-107) mmol/L Carbon Dioxide (22-32) mmol/L BUN (7-17) mg/dL Creatinine (0.52-1.04) mg/dL Estimated GFR (>60) mL/min BUN/Creatinine Ratio (6-22) Glucose (80-110) mg/dL Calcium (8.4-10.2) mg/dL Magnesium 1.6 (1.6-2.3) mg/dL Total Bilirubin (0.2-1.3) mg/dL AST (14-36) IU/L ALT (<35) IU/L Alkaline Phosphatase (38-126) U/L Ammonia 12 (9-30) umol/L Total Protein (6.3-8.2) g/dL Albumin (3.5-5.0) g/dL Globulin (1.7-4.1) g/dL Albumin/Globulin Ratio (1.0-2.8) Urine Color Urine Appearance Urine pH (4.5-8.0) Ur Specific [place] (1.000-1.035) Urine Protein (Negative) Urine Glucose (UA) (Negative) g/dL Urine Ketones (NEGATIVE) Urine Occult Blood (Negative) Urine Nitrate (Negative) Urine Bilirubin (NEGATIVE) Urine Urobilinogen (0.2) E.U./dL Ur Leukocyte Esterase (NEGATIVE) Urine RBC (0-5/HPF) Urine WBC (0-5/HPF) Ur Squamous Epith Cells (0-5/HPF) Urine Bacteria (None) Urine Mucus (Negative) Ur Culture Indicated? SARS-CoV-2 (PCR) (Negative) Blood Type A Positive Antibody Screen Negative 10/30/20 10/30/20 10/30/20 Range/Units 12:09 15:00 16:52 WBC (4.5-11.0) X10^3/uL RBC (4.0-5.2) X10^6/uL Hgb 11.5 L (12.0-16.0) g/dL Hct 34.0 L (36-46) % MCV (80-100) fL MCH (26-34) PG MCHC (30-36) % RDW (11.6-14.8) % Plt Count (150-400) X10^3/uL Neut % (Auto) (50-75) % Lymph % (Auto) (25-40) % [place] % (Auto) (3-14) % Eos % (Auto) (2-4) % Baso % (Auto) (0-2) % Neut # (Auto) (8799-7756) /uL Lymph # (Auto) (4967-7618) /uL [place] # (Auto) (0-900) /uL Eos # (Auto) (0-450) /uL Baso # (Auto) (0-100) /uL PT (10.1-12.7) SECONDS INR (0.9-1.3) APTT (26.4-36.2) SECONDS Sodium (137-145) mmol/L Potassium (3.4-5.1) mmol/L Chloride (98-107) mmol/L Carbon Dioxide (22-32) mmol/L BUN (7-17) mg/dL Creatinine (0.52-1.04) mg/dL Estimated GFR (>60) mL/min BUN/Creatinine Ratio (6-22) Glucose (80-110) mg/dL Calcium (8.4-10.2) mg/dL Magnesium (1.6-2.3) mg/dL Total Bilirubin (0.2-1.3) mg/dL AST (14-36) IU/L ALT (<35) IU/L Alkaline Phosphatase (38-126) U/L Ammonia (9-30) umol/L Total Protein (6.3-8.2) g/dL Albumin (3.5-5.0) g/dL Globulin (1.7-4.1) g/dL Albumin/Globulin Ratio (1.0-2.8) Urine Color Yellow Urine Appearance Clear Urine pH 6.0 (4.5-8.0) Ur Specific [place] >=1.030 H (1.000-1.035) Urine Protein Trace H (Negative) Urine Glucose (UA) Negative (Negative) g/dL Urine Ketones Negative (NEGATIVE) Urine Occult Blood Trace-lysed (Negative) Urine Nitrate Negative (Negative) Urine Bilirubin Negative (NEGATIVE) Urine Urobilinogen 0.2 (0.2) E.U./dL Ur Leukocyte Esterase Negative (NEGATIVE) Urine RBC 1-5/hpf (0-5/HPF) Urine WBC 1-5/hpf (0-5/HPF) Ur Squamous Epith Cells 5-10 /hpf H (0-5/HPF) Urine Bacteria Moderate (10-30) H (None) Urine Mucus 2+ H (Negative) Ur Culture Indicated? Cult not indicated SARS-CoV-2 (PCR) Negative (Negative) Blood Type Antibody Screen Point of Care Testing Stool Occult Blood Positive ECG Data Attestation: I personally reviewed and interpreted this ECG as follows: Interpretation: Sinus rhythm at a rate of 78 High normal intervals, normal axis No acute ischemic changes MDM Narrative Medical decision making narrative: 60-year-old woman with a history of alcohol use disorder with ascites and variceal bleeding previously. She has been doing significantly better over the last 3 years no longer has ascites but over the past 24 hours has been having increasing malaise and has had 3 episodes of black bloody emesis. Initial H&H is stable as are hemodynamics. She started on Protonix drip and octreotide. Will recheck H&H 4 hours after she has been here. 1 L normal saline for fluid resuscitation and this point is not meeting any criteria for transfusion. Does need to be admitted for further observation and with history of variceal bleeding needs to be at a hospital with finance professional available. 1200 no beds available at [facility] or at [facility] in [place]. [facility] may have beds available after 4:00 p.m. today will hold her here in the ER and recontact them. She prefers to not go to [place] She is complaining of some substernal/esophageal pain that has been a problem for her with prior upper GI bleeding. Protonix is being infused. As she is not nauseated and has not vomited in at least 4 hours will try a GI cocktail and see if this is helpful. Her EKG is unremarkable and does not suggest any cardiac etiology for this developing pain. 445 patient remains hemodynamically stable. Follow-up with bed availability in [place], not currently available they asked that we call back again in 2 hours. With a L of fluid patient's hemoglobin dropped from 13.4-11.5 and hematocrit from 39.8-34.0. With the GI cocktail the central chest pain resolved. Patient would much rather prefer to not go to [place], will talk to her GI specialist in [place] to see what her esophageal varices history truly is and if she could possibly be a safe admission for [facility] 520pm care is reviewed with Dr Olivares, partner to her primary GI Dr Street with [facility] in [place]. Her most recent upper endoscopy was February of 2020 that did not show varices that time. In light of her obvious GI bleeding last night and tonight, his recommendation is to continue looking for hospital where GI is available and his presumption is that this is a variceal bleed. To that end, [facility] [place] [facility] may have bed availablity. Current meds include gabapentin 300 mg 4 times a day, levothyroxine 100 mcg daily, Ativan 1 mg daily, nortriptyline 25 mg at bedtime, Xifaxan 550 mg twice a day. She no longer takes the furosemide spironolactone nadolol or lactulose. Will continue with Q 4 hour H&H is and routine meds while we are watching her here in the emergency department. She currently remains hemodynamically stable and has not had any additional vomiting. [address] Caceres, hospitalist. He accepts the patient. Transfer center is hoping for a bed available later this evening but it may not be until early tomorrow morning. <Tima Nelson, DO - Last Filed: 10/31/20 06:14> Lab Data Attestation: I reviewed the patient's lab results. Labs: Lab Results 10/30/20 10/30/20 10/30/20 Range/Units 10:25 10:25 10:25 WBC 7.3 (4.5-11.0) X10^3/uL RBC 3.99 L (4.0-5.2) X10^6/uL Hgb 13.4 (12.0-16.0) g/dL Hct 39.8 (36-46) % MCV 99.8 (80-100) fL MCH 33.7 (26-34) PG MCHC 33.7 (30-36) % RDW 13.5 (11.6-14.8) % Plt Count 134 L (150-400) X10^3/uL Neut % (Auto) 53.7 (50-75) % Lymph % (Auto) 34.1 (25-40) % [place] % (Auto) 8.1 (3-14) % Eos % (Auto) 3.3 (2-4) % Baso % (Auto) 0.8 (0-2) % Neut # (Auto) 3900 (7889-6909) /uL Lymph # (Auto) 2500 (5111-6706) /uL [place] # (Auto) 600 (0-900) /uL Eos # (Auto) 200 (0-450) /uL Baso # (Auto) 100 (0-100) /uL PT 14.4 H (10.1-12.7) SECONDS INR 1.3 (0.9-1.3) APTT 37 H (26.4-36.2) SECONDS Sodium 144 (137-145) mmol/L Potassium 3.2 L (3.4-5.1) mmol/L Chloride 110 H (98-107) mmol/L Carbon Dioxide 22 (22-32) mmol/L BUN 17 (7-17) mg/dL Creatinine 0.58 (0.52-1.04) mg/dL Estimated GFR > 60.0 (>60) mL/min BUN/Creatinine Ratio 29.3 H (6-22) Glucose 96 (80-110) mg/dL Calcium 9.6 (8.4-10.2) mg/dL Magnesium (1.6-2.3) mg/dL Total Bilirubin 0.7 (0.2-1.3) mg/dL AST 165 H (14-36) IU/L ALT 87 H (<35) IU/L Alkaline Phosphatase 68 (38-126) U/L Ammonia (9-30) umol/L Total Protein 8.6 H (6.3-8.2) g/dL Albumin 4.5 (3.5-5.0) g/dL Globulin 4.1 (1.7-4.1) g/dL Albumin/Globulin Ratio 1.1 (1.0-2.8) Urine Color Urine Appearance Urine pH (4.5-8.0) Ur Specific [place] (1.000-1.035) Urine Protein (Negative) Urine Glucose (UA) (Negative) g/dL Urine Ketones (NEGATIVE) Urine Occult Blood (Negative) Urine Nitrate (Negative) Urine Bilirubin (NEGATIVE) Urine Urobilinogen (0.2) E.U./dL Ur Leukocyte Esterase (NEGATIVE) Urine RBC (0-5/HPF) Urine WBC (0-5/HPF) Ur Squamous Epith Cells (0-5/HPF) Urine Bacteria (None) Urine Mucus (Negative) Ur Culture Indicated? SARS-CoV-2 (PCR) (Negative) Blood Type Antibody Screen 10/30/20 10/30/20 10/30/20 Range/Units 10:25 10:25 11:22 WBC (4.5-11.0) X10^3/uL RBC (4.0-5.2) X10^6/uL Hgb (12.0-16.0) g/dL Hct (36-46) % MCV (80-100) fL MCH (26-34) PG MCHC (30-36) % RDW (11.6-14.8) % Plt Count (150-400) X10^3/uL Neut % (Auto) (50-75) % Lymph % (Auto) (25-40) % [place] % (Auto) (3-14) % Eos % (Auto) (2-4) % Baso % (Auto) (0-2) % Neut # (Auto) (0625-1783) /uL Lymph # (Auto) (2408-4284) /uL [place] # (Auto) (0-900) /uL Eos # (Auto) (0-450) /uL Baso # (Auto) (0-100) /uL PT (10.1-12.7) SECONDS INR (0.9-1.3) APTT (26.4-36.2) SECONDS Sodium (137-145) mmol/L Potassium (3.4-5.1) mmol/L Chloride (98-107) mmol/L Carbon Dioxide (22-32) mmol/L BUN (7-17) mg/dL Creatinine (0.52-1.04) mg/dL Estimated GFR (>60) mL/min BUN/Creatinine Ratio (6-22) Glucose (80-110) mg/dL Calcium (8.4-10.2) mg/dL Magnesium 1.6 (1.6-2.3) mg/dL Total Bilirubin (0.2-1.3) mg/dL AST (14-36) IU/L ALT (<35) IU/L Alkaline Phosphatase (38-126) U/L Ammonia 12 (9-30) umol/L Total Protein (6.3-8.2) g/dL Albumin (3.5-5.0) g/dL Globulin (1.7-4.1) g/dL Albumin/Globulin Ratio (1.0-2.8) Urine Color Urine Appearance Urine pH (4.5-8.0) Ur Specific [place] (1.000-1.035) Urine Protein (Negative) Urine Glucose (UA) (Negative) g/dL Urine Ketones (NEGATIVE) Urine Occult Blood (Negative) Urine Nitrate (Negative) Urine Bilirubin (NEGATIVE) Urine Urobilinogen (0.2) E.U./dL Ur Leukocyte Esterase (NEGATIVE) Urine RBC (0-5/HPF) Urine WBC (0-5/HPF) Ur Squamous Epith Cells (0-5/HPF) Urine Bacteria (None) Urine Mucus (Negative) Ur Culture Indicated? SARS-CoV-2 (PCR) (Negative) Blood Type A Positive Antibody Screen Negative 10/30/20 10/30/20 10/30/20 Range/Units 12:09 15:00 16:52 WBC (4.5-11.0) X10^3/uL RBC (4.0-5.2) X10^6/uL Hgb 11.5 L (12.0-16.0) g/dL Hct 34.0 L (36-46) % MCV (80-100) fL MCH (26-34) PG MCHC (30-36) % RDW (11.6-14.8) % Plt Count (150-400) X10^3/uL Neut % (Auto) (50-75) % Lymph % (Auto) (25-40) % [place] % (Auto) (3-14) % Eos % (Auto) (2-4) % Baso % (Auto) (0-2) % Neut # (Auto) (9318-9422) /uL Lymph # (Auto) (0686-9077) /uL [place] # (Auto) (0-900) /uL Eos # (Auto) (0-450) /uL Baso # (Auto) (0-100) /uL PT (10.1-12.7) SECONDS INR (0.9-1.3) APTT (26.4-36.2) SECONDS Sodium (137-145) mmol/L Potassium (3.4-5.1) mmol/L Chloride (98-107) mmol/L Carbon Dioxide (22-32) mmol/L BUN (7-17) mg/dL Creatinine (0.52-1.04) mg/dL Estimated GFR (>60) mL/min BUN/Creatinine Ratio (6-22) Glucose (80-110) mg/dL Calcium (8.4-10.2) mg/dL Magnesium (1.6-2.3) mg/dL Total Bilirubin (0.2-1.3) mg/dL AST (14-36) IU/L ALT (<35) IU/L Alkaline Phosphatase (38-126) U/L Ammonia (9-30) umol/L Total Protein (6.3-8.2) g/dL Albumin (3.5-5.0) g/dL Globulin (1.7-4.1) g/dL Albumin/Globulin Ratio (1.0-2.8) Urine Color Yellow Urine Appearance Clear Urine pH 6.0 (4.5-8.0) Ur Specific [place] >=1.030 H (1.000-1.035) Urine Protein Trace H (Negative) Urine Glucose (UA) Negative (Negative) g/dL Urine Ketones Negative (NEGATIVE) Urine Occult Blood Trace-lysed (Negative) Urine Nitrate Negative (Negative) Urine Bilirubin Negative (NEGATIVE) Urine Urobilinogen 0.2 (0.2) E.U./dL Ur Leukocyte Esterase Negative (NEGATIVE) Urine RBC 1-5/hpf (0-5/HPF) Urine WBC 1-5/hpf (0-5/HPF) Ur Squamous Epith Cells 5-10 /hpf H (0-5/HPF) Urine Bacteria Moderate (10-30) H (None) Urine Mucus 2+ H (Negative) Ur Culture Indicated? Cult not indicated SARS-CoV-2 (PCR) Negative (Negative) Blood Type Antibody Screen Point of Care Testing Stool Occult Blood Positive MDM Narrative Medical decision making narrative: Dr nelson: Received turned over. Reviewed patient's history and physical and labs up to this point. Repeat CBC does not show any further drop in her H& H. She has received 1 further dose of pain medication. Patient still remains stable and [facility]. Care turned over to day provider change of shift to follow up and continue with this position. Discharge Plan Departure Clinical Impression: Upper gastrointestinal hemorrhage, Hypokalemia Prescriptions: No Action levothyroxine 100 mcg capsule 100 mcg PO DAILY RF: 0 nortriptyline 25 mg capsule 25 mg PO BEDTIME PRN (Reason: insomnia) Qty: 30 RF: 5 Xifaxan 550 MG tablet 550 mg PO BID Qty: 60 RF: 11 lorazepam 1 mg tablet 1 mg PO DAILY Qty: 30 RF: 5 liothyronine [Cytomel] 5 mcg tablet 10 mcg PO DAILY RF: 0 gabapentin 300 mg capsule 300 mg PO QID Qty: 360 RF: 3 nadolol 20 MG tablet 30 mg PO DAILY RF: 0 lactulose 10 gram/15 mL solution 15 - 30 ml PO 1-2XD RF: 0 furosemide [Lasix] 20 mg tablet 20 mg PO DAILY PRNRF: 0 spironolactone 100 mg tablet 100 mg PO DAILY PRNRF: 0 Referrals: Divina Lopes ARNP [Primary Care Provider] -
[2020-10-30 10:38] LABS: Add Manual Diff / Slide Review NO; Basophils Absolute Auto 100 /uL (0-100); Basophils Percent Auto 0.8 % (0-2); Eosinophils Absolute Auto 200 /uL (0-450); Eosinophils Percent Auto 3.3 % (2-4); Hematocrit 39.8 % (36-46); Hemoglobin 13.4 g/dL (12.0-16.0); Lymphocytes Absolute Auto 2500 /uL (1100-4500); Lymphocytes Percent Auto 34.1 % (25-40); Mean Corpuscular HGB Conc 33.7 % (30-36); Mean Corpuscular Hemoglobin 33.7 PG (26-34); Mean Corpuscular Volume 99.8 fL (80-100); Monocytes Absolute Auto 600 /uL (0-900); Monocytes Percent Auto 8.1 % (3-14); Neutrophils Absolute Auto 3900 /uL (1500-7000); Neutrophils Percent Auto 53.7 % (50-75); Platelet Count 134 X10^3/uL (150-400); Red Blood Cell Count 3.99 X10^6/uL (4.0-5.2); Red Cell Distribution Width 13.5 % (11.6-14.8); White Blood Cell Count 7.3 X10^3/uL (4.5-11.0)
[2020-10-30 10:45] LABS: INR 1.3 (0.9-1.3); Prothrombin Time 14.4 SECONDS (10.1-12.7)
[2020-10-30 10:48] LABS: PTT Partial Thromboplastin Tim 37 SECONDS (26.4-36.2)
[2020-10-30 10:49] LABS: Alanine Aminotransferase 87 IU/L (<35); Albumin 4.5 g/dL (3.5-5.0); Albumin Globulin Ratio 1.1 (1.0-2.8); Alkaline Phosphatase 68 U/L (38-126); Aspartate Aminotransferase 165 IU/L (14-36); BUN Creatinine Ratio 29.3 (6-22); Bilirubin Total 0.7 mg/dL (0.2-1.3); Blood Urea Nitrogen 17 mg/dL (7-17); Calcium 9.6 mg/dL (8.4-10.2); Carbon Dioxide 22 mmol/L (22-32); Chloride 110 mmol/L (98-107); Estimated Glomerular Filt Rate > 60.0 mL/min (>60); Globulin 4.1 g/dL (1.7-4.1); Glucose 96 mg/dL (80-110); HEMOLYSIS < 15 (0-50); Potassium 3.2 mmol/L (3.4-5.1); Sodium 144 mmol/L (137-145); Total Protein 8.6 g/dL (6.3-8.2)
[2020-10-30] MEDS: OCTREOTIDE 500 MCG in SODIUM CHLORIDE 0.9% 100 ML 5.05 ML IV (11:30)
[2020-10-30] MEDS: SODIUM CHLORIDE 0.9% 1,000 ML 1000 ML IV (11:30)
[2020-10-30] MEDS: PANTOPRAZOLE 40 MG VIAL IV (11:31)
[2020-10-30] MEDS: PANTOPRAZOLE 80 MG in SODIUM CHLORIDE 0.9% 100 ML 10 ML IV ×2 (11:31→21:14)
[2020-10-30 11:41] LABS: Ammonia (NH3) 12 umol/L (9-30)
[2020-10-30] MEDS: HYDROMORPHONE 0.5 MG INJ IV ×2 (12:15→18:44)
--- NOTE | 2020-10-30 12:37 | PC.NURSE ---
Pt reports indigestion type pain after starting IV gtt medications. Dr Walton made aware. 0.5mg dilaudid ordered and given. pt reassessed and states the feeling is still apparent, she feels mildly SOB resting and she feels pain in her chest pointing to her mediastinal area. RT called for EKG. airway patent, denies itching and no rash present, lungs clear. aware.
[2020-10-30 12:55] LABS: Magnesium 1.6 mg/dL (1.6-2.3)
[2020-10-30] MEDS: POTASSIUM CHLORIDE 20 MEQ in SODIUM CHLORIDE 0.9% 250 ML 130 ML IV (13:15)
[2020-10-30] MEDS: MAG HYDROX/ALUMINUM/SIMETH SUS 20 ML, LIDOCAINE VISCOUS 2% 15 ML PO (13:15)
[2020-10-30 13:21] LABS: COVID19 - ADMIT (NP swab/PCR) Negative (Negative)
[2020-10-30 15:09] LABS: Hemoglobin 11.5 g/dL (12.0-16.0)
[2020-10-30] MEDS: GABAPENTIN 300 MG CAPSULE PO ×3 (15:15→23:46)
[2020-10-30 17:07] LABS: Appearance Urine UA CLEAR; Bilirubin Urine UA NEGATIVE (NEGATIVE); Color Urine UA YELLOW; Glucose Urine UA NEGATIVE (Negative); Ketones Urine UA NEGATIVE (NEGATIVE); Leukocyte Esterase Urine UA NEGATIVE (NEGATIVE); Nitrite Urine UA NEGATIVE (Negative); Occult Blood Urine UA TRACE-LYSED (Negative); Protein Urine UA TRACE (Negative); Specific Gravity Urine UA >=1.030 (1.000-1.035); Urobilinogen Urine UA 0.2 E.U./dL (0.2)
[2020-10-30 17:44] LABS: Bacteria Urine Moderate (10-30); Culture Indicated Urine Cult Not Indicated; Mucus Urine 2+ (Negative); RBC Urine 1-5/HPF (0-5/HPF); Squamous Epithelial Cell Urine 5-10 /HPF (0-5/HPF); WBC Urine 1-5/HPF (0-5/HPF)
[2020-10-30] MEDS: SODIUM CHLORIDE 0.9% 1,000 ML 150 ML IV (18:44)
--- NOTE | 2020-10-30 19:48 | PC.NURSE ---
Hospital bed provided for overnight stay in ED.
[2020-10-30] MEDS: RIFAXIMIN 550 MG TABLET PO (20:47)
[2020-10-30] MEDS: NORTRIPTYLINE HCL 25 MG CAPSULE PO (20:48)
[2020-10-30] MEDS: LORazepam 0.5 MG TABLET 1 MG PO (20:48)
[2020-10-30] MEDS: ONDANSETRON 4 MG/2 ML INJ IV (20:48)
[2020-10-31] VITALS (25 sets, daily range): BP systolic 106–139; BP diastolic 71–85; PULSE 68–88; RESP 18; O2SAT 88–98
[2020-10-31] MEDS: SODIUM CHLORIDE 0.9% 1,000 ML 100 ML IV (01:33)
[2020-10-31] MEDS: HYDROMORPHONE 0.5 MG INJ IV (03:39)
[2020-10-31] MEDS: OCTREOTIDE 500 MCG in SODIUM CHLORIDE 0.9% 100 ML 5.05 ML IV (06:00)
[2020-10-31] MEDS: GABAPENTIN 300 MG CAPSULE PO (06:12)
--- NOTE | 2020-10-31 06:13 | PC.NURSE ---
Patient requested off-scheduled Gabapentin, which she stated her PCP said she could take up to 4 times a day as needed.
[2020-10-31] MEDS: ONDANSETRON 4 MG/2 ML INJ IV (06:49)
[2020-10-31] MEDS: PANTOPRAZOLE 80 MG in SODIUM CHLORIDE 0.9% 100 ML 10 ML IV (07:31)
--- NOTE | 2020-10-31 07:35 | PC.NURSE ---
Received report on pt from HIPOLITO Damian. Pt resting in bed awake on ipad. protonix gtt bag about completed and new protonix infusion started at same dose and rate per continuous order. Pt oob to bathroom with steady gait. Nati reported off to transfer center. awaiting further orders.
[2020-10-31 08:05] LABS: Hematocrit 31.1 % (36-46); Hemoglobin 10.6 g/dL (12.0-16.0)
--- NOTE | 2020-10-31 09:41 | PC.NURSE ---
resting in bed. allowed to sleep. NAD. holding AM dose of rifaximin until pt awakes. Call from , no update on ready bed at this time.
[2020-10-31] MEDS: RIFAXIMIN 550 MG TABLET PO (09:45)
--- NOTE | 2020-10-31 11:09 | PC.NURSE ---
Pt Report given to HIPOLITO Mathew. Pt will be going to ED on arrival. transport being set up at this time.
== END 2020-10-31 12:10 | disposition short-term general hospital (02) ==
PROVIDERS: Emergency Medicine; Emergency Provider Emergency Medicine; PCP Nurse Practitioner
DX: K92.2 Gastrointestinal hemorrhage, unspecified (principal); E87.6 Hypokalemia; K70.31 Alcoholic cirrhosis of liver with ascites; Z20.822 Contact with and (suspected) exposure to COVID-19
CPT/HCPCS: 36415; 80053; 81001; 82140; 82272; 83735; 85014; 85018; 85025; 85610; 85730; 86850; 86900; 86901; 87635; 93005; 93010; 96365; 96366; 96368; 96375; 96376; 99285; C9803; C9113; J1170; J2354; J2405; J3480

== ENCOUNTER → 2020-12-03 11:10 | Outpatient (CLI) | payer OTHER, MEDICAID, SELFPAY ==
[2020-12-03 12:54] LABS: COVID19 -Nasal RAPID Negative (Negative)
== END ==
PROVIDERS: PCP Nurse Practitioner; Visit Provider Student in an Organized Health Care Education/Training Program
DX: Z01.812 Encounter for preprocedural laboratory examination (principal); Z20.822 Contact with and (suspected) exposure to COVID-19
CPT/HCPCS: 87635

== ENCOUNTER 2020-12-05 15:54 | Emergency (ER) | payer OTHER, MEDICAID, SELFPAY ==
[2020-12-05 16:00] VITALS: BP 123/73; PULSE 74; RESP 20; TEMP 36.3; O2SAT 97
--- NOTE | 2020-12-05 16:47 | DI.RAD.S_ITS ---
PROCEDURE: XR CHEST 1V INDICATIONS: Esophageal banding yesterday with increased mediastinal pain TECHNIQUE: One view of the chest was acquired. COMPARISON: [facility], CR, CHEST 1 VIEW, 01/27/2015, 20:14. [facility], CT, CT CHEST ABD PEL W CON, 04/23/2018, 6:06. FINDINGS: Surgical changes and devices: Cholecystectomy clips are seen. Lungs and pleura: On this semiupright portable chest examination, no large pneumothorax or large pleural effusions are seen. No focal infiltrates are seen. Mediastinum: No findings of mediastinal gas can be seen. Mediastinal contours appear normal. Heart size is normal. Bones and chest wall: No suspicious bony lesions. Age-appropriate bony degenerative changes are seen. Mild levoconvex scoliotic curvature is noted. Overlying soft tissues appear unremarkable. IMPRESSION: Unremarkable chest plain film, without findings of mediastinal gas. If it would be helpful for clinical management decision making in this patient with this given history, please consider a dedicated chest CT with IV contrast for further evaluation. Dictated by: Rufino Palmer M.D. on 12/05/2020 at 16:06 Approved by: Rufino Palmer M.D. on 12/05/2020 at 16:07
--- NOTE | 2020-12-05 17:07 | ED_ITS ---
HPI - General Adult General Chief complaint: Fever Stated complaint: FEVER SWELLING OF NECK Time Seen by Provider: 12/05/20 16:44 Source: patient Mode of arrival: Ambulatory Limitations: no limitations History of Present Illness HPI narrative: Patient is a 60-year-old female with a known history of cirrhosis and alcohol issues who underwent a EGD within the past 48 hours with banding of varices. This is done by GI at [facility]. She was discharged home yesterday. Since that time she has had some nausea but no vomiting. She reports subjective fevers. She thinks she has swelling in the front of her neck /chest. Some difficulty with swallowing this is because of pain. Related Data Home Medications Medication Instructions Recorded Confirmed nadolol 30 mg PO DAILY 04/23/18 10/09/20 liothyronine 5 mcg tablet 10 mcg PO DAILY tab 05/31/18 10/09/20 lactulose 15 - 30 ml PO 1-2XD 12/27/18 10/09/20 levothyroxine 100 mcg capsule 100 mcg PO DAILY 12/19/19 10/09/20 furosemide 20 mg tablet 20 mg PO DAILY PRN 04/17/20 10/09/20 spironolactone 100 mg tablet 100 mg PO DAILY PRN 04/17/20 10/09/20 Previous Rx's Medication Instructions Recorded Xifaxan 550 mg PO BID #60 tab 09/16/16 lorazepam 1 mg tablet 1 mg PO DAILY #30 tab 06/29/20 nortriptyline 25 mg capsule 25 mg PO BEDTIME PRN #30 cap 07/24/20 gabapentin 300 mg capsule 300 mg PO QID #360 cap 10/09/20 ondansetron 4 mg PO Q6H PRN #14 tab 12/05/20 Allergies Allergy/AdvReac Type Severity Reaction Status Date / Time No Known Drug Allergies Allergy Verified 10/09/20 11:01 Review of Systems Constitutional Constitutional: Reports fever(s) (Subjective) Cardiovascular Cardiovascular: Denies chest pain and Denies dyspnea Respiratory Respiratory: Denies dyspnea Gastrointestinal Gastrointestinal: Reports nausea and Denies vomiting Integumentary/Breasts Skin/Breast: Denies rash Neurologic Neurologic: Reports system reviewed and no additional complaints, except as documented Hematologic/Lymphatic On Anticoagulants: No Allergic/Immunologic Allergic/Immunologic: Reports system reviewed and no additional complaints, except as documented Patient History Medical History Anxiety Ascites due to alcoholic cirrhosis Cardiac arrhythmia Chicken pox Cirrhosis (2012) Coagulation disorder (2012) Eczema (2014) EV (esophageal varices) (10/2015) GERD (gastroesophageal reflux disease) GI bleeding (2015) History of blood transfusion (10/2015) History of heavy periods (2014) Hypercalcemia Hypertension Hypothyroidism Intermittent palpitations (04/2019) Measles Mumps Nonalcoholic fatty liver disease Ovarian cyst (2012) Painful menstrual periods (2012) Pancreatitis Portal hypertensive gastropathy (05/2015) Psoriasis (2014) PTSD (post-traumatic stress disorder) (1999) SBO (small bowel obstruction) Shortness of breath Weight gain Surgical History H/O bilateral oophorectomy History of appendectomy History of cholecystectomy History of esophagogastroduodenoscopy (EGD) (01/2009) History of esophagogastroduodenoscopy (EGD) (05/2015) History of inguinal hernia repair Status post appendectomy Status post colonoscopy (01/2009) Status post hernia repair Status post hysteroscopy (06/17/11) Status post laparoscopic supracervical hysterectomy (08/25/16) Family History Grandfather Heart disease [place] (myocardial infarction) Grandmother Alcoholism Father No problems noted. Mother No problems noted. Grandfather Heart disease Grandmother Colon cancer Brother No problems noted. Social History Smoking Status: Never smoker alcohol intake: current Smoking Status: Never smoker alcohol intake frequency: 3 or more drinks per day Substance Use Type: does not use Exam Initial Vital Signs Initial Vital Signs: Vital Signs Temperature 97.4 F L 12/05/20 16:00 Pulse Rate 74 12/05/20 16:00 Respiratory Rate 20 12/05/20 16:00 Blood Pressure 123/73 12/05/20 16:00 Pulse Oximetry 97 12/05/20 16:00 Const General: cooperative and comfortable Limitations: mental status not altered HENMT Head: normal to inspection and normocephalic Neck Lymphatic: No lymphadenopathy Chest Other: Fullness on the anterior superior portion of the chest Resp Effort & Inspection: normal respiratory effort Auscultation: clear to auscultation bilaterally Cardio Rate: regular rate Rhythm: regular rhythm Skin Lesions: no lesions Rashes: no rashes Neuro General: patient alert and patient awake Cognition: normal cognition Speech: speech normal Extrem General: capillary refill normal Psych Appearance: grossly normal and well kempt Course Orders Ordered: ED Orders 12/05/20 16:47 XR chest 1V Stat 12/05/20 16:55 Complete Blood Count AUTO DIFF Stat Comprehensive Metabolic Panel Stat Lipase Stat Vital Signs Vital signs: Vital Signs - 8 hr 12/05/20 16:00 12/05/20 17:34 Temperature 97.4 F L 97.8 F Pulse Rate 74 73 Respiratory Rate 20 16 Blood Pressure 123/73 133/86 Pulse Oximetry 97 99 Medical Decision Making Lab Data Lab results reviewed: Yes I reviewed the patient's lab results. Result diagrams: 12/05/20 16:55 12/05/20 16:55 Labs: Lab Results 12/05/20 12/05/20 Range/Units 16:55 16:55 WBC 13.0 H (4.5-11.0) X10^3/uL RBC 3.99 L (4.0-5.2) X10^6/uL Hgb 12.7 (12.0-16.0) g/dL Hct 37.8 (36-46) % MCV 94.7 (80-100) fL MCH 31.7 (26-34) PG MCHC 33.5 (30-36) % RDW 14.3 (11.6-14.8) % Plt Count 147 L (150-400) X10^3/uL Neut % (Auto) 82.8 H (50-75) % Lymph % (Auto) 10.2 L (25-40) % [place] % (Auto) 6.9 (3-14) % Eos % (Auto) 0.0 L (2-4) % Baso % (Auto) 0.1 (0-2) % Neut # (Auto) 90460 H (2127-5089) /uL Lymph # (Auto) 1300 (0964-2876) /uL [place] # (Auto) 900 (0-900) /uL Eos # (Auto) 0 (0-450) /uL Baso # (Auto) 0 (0-100) /uL Sodium 137 (137-145) mmol/L Potassium 4.0 (3.4-5.1) mmol/L Chloride 103 (98-107) mmol/L Carbon Dioxide 24 (22-32) mmol/L BUN 14 (7-17) mg/dL Creatinine 0.59 (0.52-1.04) mg/dL Estimated GFR > 60.0 (>60) mL/min BUN/Creatinine Ratio 23.7 H (6-22) Glucose 117 H (80-110) mg/dL Calcium 10.6 H (8.4-10.2) mg/dL Total Bilirubin 1.1 (0.2-1.3) mg/dL AST 77 H (14-36) IU/L ALT 58 H (<35) IU/L Alkaline Phosphatase 64 (38-126) U/L Total Protein 8.4 H (6.3-8.2) g/dL Albumin 4.4 (3.5-5.0) g/dL Globulin 4.0 (1.7-4.1) g/dL Albumin/Globulin Ratio 1.1 (1.0-2.8) Lipase 387 H (23-300) U/L Imaging Data Chest x-ray: Radiologist's Impression: [address] [id number] ReportSigned Patient: Kristen Castle TMR#: [id number]: 1960Acct:[id number]/Sex: 60 / FDate of Service: 12/05/20Loc: EDAccession Number: [id number] Procedure: XR chest 1V Ordering Provider: Tima Nelson D.O. PROCEDURE: XR CHEST 1V INDICATIONS: Esophageal banding yesterday with increased mediastinal pain TECHNIQUE: One view of the chest was acquired. COMPARISON: [facility], CR, CHEST 1 VIEW, 01/27/2015, 20:14. [facility], CT, CT CHEST ABD PEL W CON, 04/23/2018, 6:06. FINDINGS: Surgical changes and devices: Cholecystectomy clips are seen. Lungs and pleura: On this semiupright portable chest examination, no large pneumothorax or large pleural effusions are seen. No focal infiltrates are seen. Mediastinum: No findings of mediastinal gas can be seen. Mediastinal contours appear normal. Heart size is normal. Bones and chest wall: No suspicious bony lesions. Age-appropriate bony degenerative changes are seen. Mild levoconvex scoliotic curvature is noted. Overlying soft tissues appear unremarkable. IMPRESSION: Unremarkable chest plain film, without findings of mediastinal gas. If it would be helpful for clinical management decision making in this patient with this given history, please consider a dedicated chest CT with IV contrast for further evaluation. Dictated by: Rufino Palmer M.D. on 12/05/2020 at 16:06 Approved by: Rufino Palmer M.D. on 12/05/2020 at 16:07 [facility] Narrative Medical decision making narrative: Patient's chest x-ray shows no signs of free air. She does have a leukocytosis however she just underwent a procedure yesterday. She is afebrile here. I feel we should hold on any antibiotics for now. Unsure as to what is causing the fullness in the anterior portion of her chest. This would unlikely be related to the EGD yesterday. Also have low suspicion given the lack of free air other findings on the chest x-ray. I did discuss the case with her GI provider who recommended reassuring the patient in keeping all of her postoperative instructions and follow-up. I will send the patient home with some nausea medication. She was given return precautions and follow-up instructions. She expressed understanding and agreement. Discharge Plan Departure Patient Disposition: Home Clinical Impression: Nausea Instructions: DI for Nausea -- Adult Activity Restrictions/Additional Instructions: I recommend that you follow all of the postoperative instructions given to you by your GI provider. Keep all of your scheduled medical appointments. A prescription for some nausea medication was electronically transmitted to the pharmacy of your choice. Return to the emergency department for any new or worsening symptoms Prescriptions: New ondansetron 4 mg tablet,disintegrating 4 mg PO Q6H PRN (Reason: nausea and vomiting) Qty: 14 RF: 0 No Action levothyroxine 100 mcg capsule 100 mcg PO DAILY RF: 0 nortriptyline 25 mg capsule 25 mg PO BEDTIME PRN (Reason: insomnia) Qty: 30 RF: 5 Xifaxan 550 MG tablet 550 mg PO BID Qty: 60 RF: 11 lorazepam 1 mg tablet 1 mg PO DAILY Qty: 30 RF: 5 liothyronine [Cytomel] 5 mcg tablet 10 mcg PO DAILY RF: 0 gabapentin 300 mg capsule 300 mg PO QID Qty: 360 RF: 3 nadolol 20 MG tablet 30 mg PO DAILY RF: 0 lactulose 10 gram/15 mL solution 15 - 30 ml PO 1-2XD RF: 0 furosemide [Lasix] 20 mg tablet 20 mg PO DAILY PRNRF: 0 spironolactone 100 mg tablet 100 mg PO DAILY PRNRF: 0 Referrals: Divina Lpoes ARNP [Primary Care Provider] -
[2020-12-05 17:26] LABS: Add Manual Diff / Slide Review NO; Basophils Absolute Auto 0 /uL (0-100); Basophils Percent Auto 0.1 % (0-2); Eosinophils Absolute Auto 0 /uL (0-450); Hematocrit 37.8 % (36-46); Hemoglobin 12.7 g/dL (12.0-16.0); Lymphocytes Absolute Auto 1300 /uL (1100-4500); Lymphocytes Percent Auto 10.2 % (25-40); Mean Corpuscular HGB Conc 33.5 % (30-36); Mean Corpuscular Hemoglobin 31.7 PG (26-34); Mean Corpuscular Volume 94.7 fL (80-100); Monocytes Absolute Auto 900 /uL (0-900); Monocytes Percent Auto 6.9 % (3-14); Neutrophils Absolute Auto 10800 /uL (1500-7000); Neutrophils Percent Auto 82.8 % (50-75); Platelet Count 147 X10^3/uL (150-400); Red Blood Cell Count 3.99 X10^6/uL (4.0-5.2); Red Cell Distribution Width 14.3 % (11.6-14.8)
[2020-12-05 17:34] VITALS: BP 133/86; PULSE 73; RESP 16; TEMP 36.6; O2SAT 99
[2020-12-05 17:51] LABS: Alanine Aminotransferase 58 IU/L (<35); Albumin 4.4 g/dL (3.5-5.0); Albumin Globulin Ratio 1.1 (1.0-2.8); Alkaline Phosphatase 64 U/L (38-126); Aspartate Aminotransferase 77 IU/L (14-36); BUN Creatinine Ratio 23.7 (6-22); Bilirubin Total 1.1 mg/dL (0.2-1.3); Blood Urea Nitrogen 14 mg/dL (7-17); Calcium 10.6 mg/dL (8.4-10.2); Carbon Dioxide 24 mmol/L (22-32); Chloride 103 mmol/L (98-107); Estimated Glomerular Filt Rate > 60.0 mL/min (>60); Glucose 117 mg/dL (80-110); Lipase 387 U/L (23-300); Sodium 137 mmol/L (137-145); Total Protein 8.4 g/dL (6.3-8.2)
== END 2020-12-05 18:35 | disposition home or self-care (01) ==
PROVIDERS: Emergency Provider Emergency Medicine; PCP Nurse Practitioner
DX: R11.0 Nausea (principal); R22.1 Localized swelling, mass and lump, neck; R50.9 Fever, unspecified; R07.89 Other chest pain
CPT/HCPCS: 36415; 71045; 80053; 83690; 85025; 99283; 99284

== ENCOUNTER 2020-12-12 22:22 | Emergency (ER) | payer OTHER, MEDICAID, SELFPAY ==
[2020-12-12 22:35] VITALS: BP 128/90; PULSE 104; RESP 26; TEMP 36.7; O2SAT 96; BMI 22.3
[2020-12-12 22:48] VITALS: PULSE 101; O2SAT 97
[2020-12-12 23:00] VITALS: BP 147/94; PULSE 99; O2SAT 97
[2020-12-12 23:18] LABS: Add Manual Diff / Slide Review NO; Basophils Absolute Auto 200 /uL (0-100); Basophils Percent Auto 1.6 % (0-2); Eosinophils Absolute Auto 100 /uL (0-450); Eosinophils Percent Auto 1.2 % (2-4); Hematocrit 43.6 % (36-46); Hemoglobin 14.5 g/dL (12.0-16.0); Lymphocytes Absolute Auto 3600 /uL (1100-4500); Lymphocytes Percent Auto 36.3 % (25-40); Mean Corpuscular HGB Conc 33.3 % (30-36); Mean Corpuscular Hemoglobin 31.3 PG (26-34); Mean Corpuscular Volume 93.8 fL (80-100); Monocytes Absolute Auto 900 /uL (0-900); Neutrophils Absolute Auto 5200 /uL (1500-7000); Neutrophils Percent Auto 51.9 % (50-75); Platelet Count 241 X10^3/uL (150-400); Red Blood Cell Count 4.64 X10^6/uL (4.0-5.2); Red Cell Distribution Width 14.5 % (11.6-14.8)
[2020-12-12 23:21] LABS: Alanine Aminotransferase 92 IU/L (<35); Albumin 4.9 g/dL (3.5-5.0); Albumin Globulin Ratio 1.1 (1.0-2.8); Alkaline Phosphatase 86 U/L (38-126); Aspartate Aminotransferase 115 IU/L (14-36); BUN Creatinine Ratio 18.2 (6-22); Bilirubin Total 0.8 mg/dL (0.2-1.3); Blood Urea Nitrogen 10 mg/dL (7-17); Calcium 10.4 mg/dL (8.4-10.2); Carbon Dioxide 22 mmol/L (22-32); Chloride 105 mmol/L (98-107); Estimated Glomerular Filt Rate > 60.0 mL/min (>60); Globulin 4.4 g/dL (1.7-4.1); Glucose 111 mg/dL (80-110); HEMOLYSIS < 15 (0-50); Potassium 3.5 mmol/L (3.4-5.1); Sodium 144 mmol/L (137-145); Total Protein 9.3 g/dL (6.3-8.2)
--- NOTE | 2020-12-12 23:22 | ED.GIBLEED ---
HPI - GI Bleed General Chief complaint: GI Bleed Stated complaint: sent by medics Time Seen by Provider: 12/12/20 23:14 Source: patient and other (Female neighbor) Mode of arrival: Ambulatory Limitations: no limitations History of Present Illness HPI Narrative: Patient brought in by EMS from home for complaints of dark blood/melena episode tonight. No dizziness. No abdominal pain. No chest pain no dyspnea. No syncope. Patient does not want a rectal exam. Patient admits drinking alcohol tonight, she was frustrated with events of the past 2 weeks. She did have esophageal banding for esophageal varices at [facility] about 1 and half weeks ago. Has history of GI bleed with transfusions in the past. Patient was worried and with abundance of caution called ambulance to be brought here. Is not on any iron supplements. complaint: melena Related Data Home Medications Medication Instructions Recorded Confirmed nadolol 30 mg PO DAILY 04/23/18 10/09/20 liothyronine 5 mcg tablet 10 mcg PO DAILY tab 05/31/18 10/09/20 lactulose 15 - 30 ml PO 1-2XD 12/27/18 10/09/20 levothyroxine 100 mcg capsule 100 mcg PO DAILY 12/19/19 10/09/20 furosemide 20 mg tablet 20 mg PO DAILY PRN 04/17/20 10/09/20 spironolactone 100 mg tablet 100 mg PO DAILY PRN 04/17/20 10/09/20 Previous Rx's Medication Instructions Recorded Xifaxan 550 mg PO BID #60 tab 09/16/16 lorazepam 1 mg tablet 1 mg PO DAILY #30 tab 06/29/20 nortriptyline 25 mg capsule 25 mg PO BEDTIME PRN #30 cap 07/24/20 gabapentin 300 mg capsule 300 mg PO QID #360 cap 10/09/20 ondansetron 4 mg PO Q6H PRN #14 tab 12/05/20 Allergies Allergy/AdvReac Type Severity Reaction Status Date / Time No Known Drug Allergies Allergy Verified 12/12/20 22:35 Review of Systems Review of Systems Narrative: GENERAL: Denies chills, fatigue, malaise, fever, sweats. HEENT: Denies sinus pain, ear pain, sore throat RESPIRATORY: Denies dyspnea, cough CARDIOVASCULAR: Denies chest pain, palpitations, no syncope GASTROINTESTINAL: Denies nausea, vomiting, abdominal pain, complains of melena : Denies dysuria, frequency, hematuria MUSCULOSKELETAL: denies muscle or bony pain SKIN: Denies rash, skin lesions NEUROLOGIC: Denies weakness, numbness, no dizziness ROS Unobtainable: All systems reviewed & are unremarkable except as noted in HPI and below Patient History Medical History Anxiety Ascites due to alcoholic cirrhosis Cardiac arrhythmia Chicken pox Cirrhosis (2012) Coagulation disorder (2012) Eczema (2014) EV (esophageal varices) (10/2015) GERD (gastroesophageal reflux disease) GI bleeding (2015) History of blood transfusion (10/2015) History of heavy periods (2014) Hypercalcemia Hypertension Hypothyroidism Intermittent palpitations (04/2019) Measles Mumps Nonalcoholic fatty liver disease Ovarian cyst (2012) Painful menstrual periods (2012) Pancreatitis Portal hypertensive gastropathy (05/2015) Psoriasis (2014) PTSD (post-traumatic stress disorder) (1999) SBO (small bowel obstruction) Shortness of breath Weight gain Surgical History H/O bilateral oophorectomy History of appendectomy History of cholecystectomy History of esophagogastroduodenoscopy (EGD) (01/2009) History of esophagogastroduodenoscopy (EGD) (05/2015) History of inguinal hernia repair Status post appendectomy Status post colonoscopy (01/2009) Status post hernia repair Status post hysteroscopy (06/17/11) Status post laparoscopic supracervical hysterectomy (08/25/16) Family History Grandfather Heart disease [place] (myocardial infarction) Grandmother Alcoholism Father No problems noted. Mother No problems noted. Grandfather Heart disease Grandmother Colon cancer Brother No problems noted. Social History Smoking Status: Never smoker alcohol intake: current Smoking Status: Never smoker alcohol intake frequency: 3 or more drinks per day Substance Use Type: does not use Exam Narrative Exam Narrative: GENERAL: in no distress, not toxic not dyspneic HEAD: Normocephalic. EYES: Pupils equal round No scleral icterus. No injection no discharge, no icterus, no pallor ENT: Mucous membranes moist. NECK: Trachea midline. CARDIOVASCULAR: Regular rate and rhythm without murmurs RESPIRATORY: Clear to auscultation. Breath sounds equal bilaterally. No wheezes, rales, or rhonchi. GASTROINTESTINAL: Abdomen soft, non-tender, patient refuses rectal exam. Bowel sounds present no peritoneal signs EXTREMITIES: No gross deformities. BACK: No flank tenderness. NEURO: AOx4. SKIN: Warm and dry PSYCH: Not anxious, is cooperative Initial Vital Signs Initial Vital Signs: Vital Signs Temperature 98.1 F 12/12/20 22:35 Pulse Rate 104 H 12/12/20 22:35 Respiratory Rate 26 H 12/12/20 22:35 Blood Pressure 128/90 12/12/20 22:35 Pulse Oximetry 96 12/12/20 22:35 Course Course Course Narrative: 1:30 a.m.. Patient does not want to wait any longer for [facility] to call back. She states she has a lot to worry about at home. She would like to leave. Spoke with patient risk of worsening increased bleeding. At this time leaving against medical advice. Benefits to stay to here from Gastroenterology and disposition. She is awake alert oriented x4. Her friend/neighbor is at bedside Orders Ordered: ED Orders 12/12/20 22:45 Complete Blood Count AUTO DIFF Stat Comprehensive Metabolic Panel Stat Partial Thromboplastin Time Stat Prothrombin Time INR Stat Type and Screen Stat Discontinued Medications Ondansetron HCl (Ondansetron 4 Mg/2 Ml Inj) 4 mg IV NOW ONE Stop: 12/12/20 23:04 Last Admin: 12/13/20 01:41 Dose: Not Given Documented by: BARAK Reevaluation(s) Reevaluation #1: No further bleeding while here. Has small stool sample here for occult stool testing. No further rectal bleeding. Patient does not want to wait any longer. Import with patient to stay. Spoke with her risk of leaving against medical advice. Please see note above. Time: 01:32 Consultations Consultation #1: Patient has already left against medical advice however [facility] called back. Dr. Rosenthal. I conveyed with him patient's symptoms and results. He states melena can persist after procedure 1-2 weeks post procedure. He has low threshold for EGD for symptoms. However, given stable vital signs and laboratory results. Patient to return immediately if abdominal pain or worsening symptoms. Patient is on omeprazole twice a day already from discharge summary from [facility]. This was conveyed by transfer center with [facility]. Time: 03:27 Vital Signs Vital signs: Vital Signs - 8 hr 12/12/20 22:35 12/12/20 22:48 12/12/20 23:00 Temperature 98.1 F Pulse Rate 104 H 101 H 99 H Respiratory Rate 26 H Blood Pressure 128/90 147/94 H Pulse Oximetry 96 97 97 12/13/20 01:00 Temperature Pulse Rate 85 Respiratory Rate Blood Pressure 118/77 Pulse Oximetry 96 MDM - GI Bleed Differential Diagnosis Differential diagnosis: Likely esophageal varices, gastritis, Upper gastrointestinal hemorrhage, Lower gastrointestinal hemorrhage and melena Medical Records Attestation: I reviewed the patient's medical records. Lab Data Attestation: I reviewed the patient's lab results. Result diagrams: 12/12/20 22:45 12/12/20 22:45 Labs: Lab Results 12/12/20 12/12/20 12/12/20 Range/Units 22:45 22:45 22:45 WBC 10.0 (4.5-11.0) X10^3/uL RBC 4.64 (4.0-5.2) X10^6/uL Hgb 14.5 (12.0-16.0) g/dL Hct 43.6 (36-46) % MCV 93.8 (80-100) fL MCH 31.3 (26-34) PG MCHC 33.3 (30-36) % RDW 14.5 (11.6-14.8) % Plt Count 241 (150-400) X10^3/uL Neut % (Auto) 51.9 (50-75) % Lymph % (Auto) 36.3 (25-40) % Curry % (Auto) 9.0 (3-14) % Eos % (Auto) 1.2 L (2-4) % Baso % (Auto) 1.6 (0-2) % Neut # (Auto) 5200 (2622-8953) /uL Lymph # (Auto) 3600 (3563-6057) /uL Curry # (Auto) 900 (0-900) /uL Eos # (Auto) 100 (0-450) /uL Baso # (Auto) 200 H (0-100) /uL PT (10.1-12.7) SECONDS INR (0.9-1.3) APTT (26.4-36.2) SECONDS Sodium 144 (137-145) mmol/L Potassium 3.5 (3.4-5.1) mmol/L Chloride 105 (98-107) mmol/L Carbon Dioxide 22 (22-32) mmol/L BUN 10 (7-17) mg/dL Creatinine 0.55 (0.52-1.04) mg/dL Estimated GFR > 60.0 (>60) mL/min BUN/Creatinine Ratio 18.2 (6-22) Glucose 111 H (80-110) mg/dL Calcium 10.4 H (8.4-10.2) mg/dL Total Bilirubin 0.8 (0.2-1.3) mg/dL AST 115 H (14-36) IU/L ALT 92 H (<35) IU/L Alkaline Phosphatase 86 (38-126) U/L Total Protein 9.3 H (6.3-8.2) g/dL Albumin 4.9 (3.5-5.0) g/dL Globulin 4.4 H (1.7-4.1) g/dL Albumin/Globulin Ratio 1.1 (1.0-2.8) Blood Type A Positive Antibody Screen Negative 12/12/20 Range/Units 22:45 WBC (4.5-11.0) X10^3/uL RBC (4.0-5.2) X10^6/uL Hgb (12.0-16.0) g/dL Hct (36-46) % MCV (80-100) fL MCH (26-34) PG MCHC (30-36) % RDW (11.6-14.8) % Plt Count (150-400) X10^3/uL Neut % (Auto) (50-75) % Lymph % (Auto) (25-40) % Curry % (Auto) (3-14) % Eos % (Auto) (2-4) % Baso % (Auto) (0-2) % Neut # (Auto) (3924-1376) /uL Lymph # (Auto) (8172-4220) /uL Curry # (Auto) (0-900) /uL Eos # (Auto) (0-450) /uL Baso # (Auto) (0-100) /uL PT 14.5 H (10.1-12.7) SECONDS INR 1.3 (0.9-1.3) APTT 39 H (26.4-36.2) SECONDS Sodium (137-145) mmol/L Potassium (3.4-5.1) mmol/L Chloride (98-107) mmol/L Carbon Dioxide (22-32) mmol/L BUN (7-17) mg/dL Creatinine (0.52-1.04) mg/dL Estimated GFR (>60) mL/min BUN/Creatinine Ratio (6-22) Glucose (80-110) mg/dL Calcium (8.4-10.2) mg/dL Total Bilirubin (0.2-1.3) mg/dL AST (14-36) IU/L ALT (<35) IU/L Alkaline Phosphatase (38-126) U/L Total Protein (6.3-8.2) g/dL Albumin (3.5-5.0) g/dL Globulin (1.7-4.1) g/dL Albumin/Globulin Ratio (1.0-2.8) Blood Type Antibody Screen Point of Care Testing Stool Occult Blood Positive MDM Narrative Medical decision making narrative: Patient refusing further treatment or observation. We still have not heard back from [facility]. 1:34 a.m.. She is awake alert oriented x4. Nontoxic. Understands leaving against medical advice risk of heart attack worsening bleed. Permanent injury. Discharge Plan Departure Patient Disposition: Left Against Medical Advice Clinical Impression: Rectal bleed Activity Restrictions/Additional Instructions: Return immediately if you change of mind to further observed and treated Prescriptions: No Action levothyroxine 100 mcg capsule 100 mcg PO DAILY RF: 0 nortriptyline 25 mg capsule 25 mg PO BEDTIME PRN (Reason: insomnia) Qty: 30 RF: 5 Xifaxan 550 MG tablet 550 mg PO BID Qty: 60 RF: 11 lorazepam 1 mg tablet 1 mg PO DAILY Qty: 30 RF: 5 liothyronine [Cytomel] 5 mcg tablet 10 mcg PO DAILY RF: 0 gabapentin 300 mg capsule 300 mg PO QID Qty: 360 RF: 3 ondansetron 4 mg tablet,disintegrating 4 mg PO Q6H PRN (Reason: nausea and vomiting) Qty: 14 RF: 0 nadolol 20 MG tablet 30 mg PO DAILY RF: 0 lactulose 10 gram/15 mL solution 15 - 30 ml PO 1-2XD RF: 0 furosemide [Lasix] 20 mg tablet 20 mg PO DAILY PRNRF: 0 spironolactone 100 mg tablet 100 mg PO DAILY PRNRF: 0 Referrals: Divina Lopes ARNP [Primary Care Provider] - Stand Alone Forms: Against Medical Advice
[2020-12-12 23:28] LABS: INR 1.3 (0.9-1.3); Prothrombin Time 14.5 SECONDS (10.1-12.7)
[2020-12-12 23:31] LABS: PTT Partial Thromboplastin Tim 39 SECONDS (26.4-36.2)
[2020-12-13 01:00] VITALS: BP 118/77; PULSE 85; O2SAT 96
== END 2020-12-13 01:54 | disposition left against medical advice (07) ==
PROVIDERS: Emergency Provider Emergency Medicine; PCP Nurse Practitioner
DX: K62.5 Hemorrhage of anus and rectum (principal)
CPT/HCPCS: 36415; 80053; 82272; 85025; 85610; 85730; 86850; 86900; 86901; 99283

== ENCOUNTER → 2020-12-22 09:42 | Outpatient (CLI) | payer OTHER, MEDICAID, SELFPAY ==
[2020-12-22 11:15] LABS: COVID19 -Nasal RAPID Negative (Negative)
== END ==
PROVIDERS: PCP Nurse Practitioner; Visit Provider Physician Assistant
DX: Z01.812 Encounter for preprocedural laboratory examination (principal); Z20.822 Contact with and (suspected) exposure to COVID-19
CPT/HCPCS: 87635

== ENCOUNTER → 2021-01-31 10:43 | Outpatient (CLI) | payer OTHER, MEDICAID, SELFPAY ==
--- NOTE | 2021-01-31 | DI.MG.S_ITS ---
BILATERAL DIGITAL SCREENING MAMMOGRAM 3D/2D WITH CAD: 01/31/2021 CLINICAL: Routine screening. Family history of breast cancer. Comparison is made to exams dated: 02/14/2020 mammogram, 01/25/2020 mammogram, and 11/17/2018 mammogram - [facility]. The tissue of both breasts is heterogeneously dense. This may lower the sensitivity of mammography. Current study was also evaluated with a Computer Aided Detection (CAD) system. No significant masses, calcifications, or other findings are seen in either breast. There has been no significant interval change. IMPRESSION: NEGATIVE There is no mammographic evidence of malignancy. A 1 year screening mammogram is recommended. This exam was interpreted at Station ID: [id number]. NOTE: For mammograms, a report in lay terms will be sent to the patient. Approximately 15% of breast malignancies will not be visualized mammographically. In the management of a palpable breast mass, a negative mammogram must not discourage biopsy of a clinically suspicious lesion. Electronically Signed By: La armas/shayan:01/31/2021 11:32:11 letter sent: Normal Exam ACR BI-RADS Category 1: Negative [id number]
== END ==
PROVIDERS: PCP Nurse Practitioner; Referring Provider Nurse Practitioner; Visit Provider Nurse Practitioner
DX: Z12.31 Encounter for screening mammogram for malignant neoplasm of breast (principal); Z80.3 Family history of malignant neoplasm of breast
CPT/HCPCS: 77063; 77067

== ENCOUNTER → 2021-03-27 11:56 | Outpatient (CLI) | payer OTHER, MEDICAID, SELFPAY ==
[2021-03-27 13:51] LABS: Cholesterol 208 mg/dL (140-199); HDL Cholesterol 55 mg/dL (40-60); LDL Cholesterol Calculated 125 mg/dL (<100); Triglycerides 138 mg/dL (35-150)
[2021-03-27 14:09] LABS: Free T3, Triiodothyronine Free 3.82 pg/mL (2.77-5.27); Free T4, Direct Thyroxine 1.12 ng/dL (0.78-2.19)
[2021-03-28 08:14] LABS: Thyroid Peroxidase Antibodies 46 IU/mL (0-34)
== END ==
PROVIDERS: PCP Nurse Practitioner; Referring Provider Internal Medicine Endocrinology, Diabetes & Metabolism; Visit Provider Internal Medicine Endocrinology, Diabetes & Metabolism
DX: E03.8 Other specified hypothyroidism (principal); E03.9 Hypothyroidism, unspecified; R79.89 Other specified abnormal findings of blood chemistry; E78.5 Hyperlipidemia, unspecified; Z00.00 Encounter for general adult medical examination without abnormal findings
CPT/HCPCS: 36415; 80061; 84439; 84443; 84481; 86376

== ENCOUNTER 2021-03-31 13:23 | Emergency (ER) | payer OTHER, MEDICAID, SELFPAY ==
[2021-03-31 13:34] VITALS: BP 156/94; PULSE 94; RESP 18; TEMP 36.1; O2SAT 97; BMI 22.3
--- NOTE | 2021-03-31 13:41 | DI.RAD.S_ITS ---
PROCEDURE: XR FOOT RT MIN 3V INDICATIONS: pain after tripping, heard pop TECHNIQUE: 3 views of the foot were acquired. COMPARISON: None. FINDINGS: Bones: No fractures or dislocations. No suspicious bony lesions. Degenerative changes are seen, which are worst involving the 1st ray. Incidental note is made of a bipartite medial sesamoid bone. Soft tissues: No tibiotalar joint effusion. Achilles tendon appears normal. IMPRESSION: No displaced fractures are seen. If there is point tenderness (or other clinical suspicion for a fracture not seen on these images) then a dedicated CT could be considered for further evaluation, if clinically appropriate. Age-appropriate bony degenerative changes are seen. Dictated by: Rufino Palmer M.D. on 03/31/2021 at 13:03 Approved by: Rufino Palmer M.D. on 03/31/2021 at 13:04
--- NOTE | 2021-03-31 13:49 | PC.NURSE ---
pt states tripping while going down steps last night at her home. felt a pop to her R foot. swelling and bruising to Lateral area. states some decreased sensation and numbness and tingling. Xray complete.
--- NOTE | 2021-03-31 14:16 | ED.LOWEXIN ---
HPI - Extremity Injury (Lower) General Chief Complaint: Extremity Injury, Lower Stated Complaint: possible broken right foot Time Seen by Provider: 03/31/21 13:26 Source: patient Mode of arrival: Ambulatory Limitations: physical limitation History of Present Illness HPI Narrative: Patient is a 61-year-old female here for evaluation of a right ankle/foot injury. Patient states that last evening she stepped wrong off of the last step and twisted her ankle. She has been ambulatory since then but has had bruising and swelling over the area. No prior injuries. Related Data Home Medications Medication Instructions Recorded Confirmed nadolol 20 mg tablet 30 mg PO DAILY 04/23/18 01/22/21 liothyronine 5 mcg tablet (Cytomel) 10 mcg PO DAILY tab 05/31/18 01/22/21 lactulose 10 gram/15 mL oral 15 - 30 ml PO 1-2XD 12/27/18 01/22/21 solution levothyroxine 100 mcg capsule 100 mcg PO DAILY 12/19/19 01/22/21 furosemide 20 mg tablet (Lasix) 20 mg PO DAILY PRN 04/17/20 01/22/21 spironolactone 100 mg tablet 100 mg PO DAILY PRN 04/17/20 01/22/21 Previous Rx's Medication Instructions Recorded rifaximin 550 mg tablet (Xifaxan) 550 mg PO BID #60 tab 09/16/16 gabapentin 300 mg capsule 300 mg PO QID #360 cap 10/09/20 lorazepam 1 mg tablet 1 mg PO DAILY #30 tab 12/28/20 nortriptyline 25 mg capsule 25 mg PO BEDTIME PRN #30 cap 01/22/21 varicella-zoster glycoE [id number] 0.5 ml IM ONCE #1 ea 03/12/21 adj(PF) 50 mcg/0.5 mL IM susp, kit (Shingrix (PF)) Allergies Allergy/AdvReac Type Severity Reaction Status Date / Time No Known Drug Allergies Allergy Verified 03/12/21 14:43 Review of Systems Review of Systems ROS Unobtainable: All systems reviewed & are unremarkable except as noted in HPI and below Constitutional Constitutional: Reports system reviewed and no additional complaints, except as documented Musculoskeletal Musculoskeletal: Reports system reviewed and no additional complaints, except as documented, Reports as per HPI and Denies tingling Integumentary/Breasts Skin/Breast: Reports as per HPI Neurologic Neurologic: Denies tingling Endocrine Endocrine: Reports system reviewed and no additional complaints, except as documented Hematologic/Lymphatic On Anticoagulants: No Allergic/Immunologic Allergic/Immunologic: Reports system reviewed and no additional complaints, except as documented Patient History Medical History Anxiety Ascites due to alcoholic cirrhosis Cardiac arrhythmia Chicken pox Cirrhosis (2012) Coagulation disorder (2012) Eczema (2014) EV (esophageal varices) (10/2015) GERD (gastroesophageal reflux disease) GI bleeding (2015) History of blood transfusion (10/2015) History of heavy periods (2014) Hypercalcemia Hypertension Hypothyroidism Intermittent palpitations (04/2019) Measles Mumps Nonalcoholic fatty liver disease Ovarian cyst (2012) Painful menstrual periods (2012) Pancreatitis Portal hypertensive gastropathy (05/2015) Psoriasis (2014) PTSD (post-traumatic stress disorder) (1999) SBO (small bowel obstruction) Shortness of breath Weight gain Surgical History H/O bilateral oophorectomy History of appendectomy History of cholecystectomy History of esophagogastroduodenoscopy (EGD) (01/2009) History of esophagogastroduodenoscopy (EGD) (05/2015) History of inguinal hernia repair Status post appendectomy Status post colonoscopy (01/2009) Status post hernia repair Status post hysteroscopy (06/17/11) Status post laparoscopic supracervical hysterectomy (08/25/16) Family History Grandfather Heart disease [place] (myocardial infarction) Grandmother Alcoholism Father No problems noted. Mother No problems noted. Grandfather Heart disease Grandmother Colon cancer Brother No problems noted. Social History Smoking Status: Never smoker alcohol intake: current Smoking Status: Never smoker alcohol intake frequency: a few times a week Substance Use Type: does not use Exam Initial Vital Signs Initial Vital Signs: Vital Signs Temperature 97 F L 03/31/21 13:34 Pulse Rate 94 H 03/31/21 13:34 Respiratory Rate 18 03/31/21 13:34 Blood Pressure 156/94 H 03/31/21 13:34 Pulse Oximetry 97 03/31/21 13:34 Const General: cooperative and healthy appearing Cardio Pulses: dorsalis pedis present on the right Skin Other: Contusion on the dorsum of the right foot Neuro General: patient alert and patient awake Motor: muscle tone normal throughout Sensory Exam: no sensory deficits noted Extrem General: capillary refill normal Other: Patient does not have any tenderness to the proximal fibula on the right. No tenderness over the Achilles tendon. No tenderness over the medial malleolus. Does have tenderness on the lateral aspect of the right foot. No tenderness along the base of the 5th metatarsal. No tenderness along the Lisfranc joint. Procedures Orthopedic Splinting/Casting Injury #1: Side: right Lower Extremity Injury Location: ankle Lower Extremity Immobilizer: Pavriz wrap Post splinting neuro exam: no change Post splinting vascular exam: no change Placed by: Nursing Course Orders Ordered: ED Orders 03/31/21 13:41 XR foot RT min 3V Stat Vital Signs Vital signs: Vital Signs - 8 hr 03/31/21 13:34 Temperature 97 F L Pulse Rate 94 H Respiratory Rate 18 Blood Pressure 156/94 H Pulse Oximetry 97 MDM - Extremity Injury (Lower) Imaging Data Extremity x-ray #1: Radiologist's Impression: [address] [address] XRay Report Signed Patient: Kristen Castle MR#: [id number] : 1960 Acct:[id number] Age/Sex: 61 / F Date of Service: 03/31/21 Loc: ED Accession Number: [id number] ?? Procedure: XR foot RT min 3V Ordering Provider: Tima Nelson D.O. PROCEDURE:? XR FOOT RT MIN 3V ? INDICATIONS:? pain after tripping, heard pop ? TECHNIQUE:? 3 views of the foot were acquired.? ? COMPARISON:? None. ? FINDINGS:? ? Bones:? No fractures or dislocations.? No suspicious bony lesions.? ? Degenerative changes are seen, which are worst involving the 1st ray. Incidental note is made of a bipartite medial sesamoid bone.? ? Soft tissues:? No tibiotalar joint effusion.? Achilles tendon appears normal.? ? ? IMPRESSION:? ? No displaced fractures are seen. ? If there is point tenderness (or other clinical suspicion for a fracture not seen on these images) then a dedicated CT could be considered for further evaluation, if clinically appropriate. ? Age-appropriate bony degenerative changes are seen.? ? ? Dictated by: Rufino Palmer M.D. on 03/31/2021 at 13:03 ? ? Approved by: Rufino Palmer M.D. on 03/31/2021 at 13:04?? MDM Narrative Medical decision making narrative: Patient is neurovascular intact. No fractures noted on the x-rays. Will send home with a Parviz bandage for comfort. Patient declined the offer for crutches. She was given return precautions and follow-up instructions. She expressed understanding and agreement. Discharge Plan Departure Patient Disposition: Home Clinical Impression: Ankle sprain and strain Instructions: DI for Ankle Sprain, How To Perform RICE (Rest, Ice, Compress, Elevate), How to Apply an Elastic Wrap on Ankle Activity Restrictions/Additional Instructions: I do recommend that you keep your leg elevated like we discussed. Use the elastic bandage like we discussed. You can walk on your leg as tolerated. Return to the emergency department for any new or worsening symptoms like we discussed. Prescriptions: No Action levothyroxine 100 mcg capsule 100 mcg PO DAILY RF: 0 nortriptyline 25 mg capsule 25 mg PO BEDTIME PRN (Reason: insomnia) Qty: 30 RF: 5 Xifaxan 550 MG tablet 550 mg PO BID Qty: 60 RF: 11 lorazepam 1 mg tablet 1 mg PO DAILY Qty: 30 RF: 5 liothyronine [Cytomel] 5 mcg tablet 10 mcg PO DAILY RF: 0 gabapentin 300 mg capsule 300 mg PO QID Qty: 360 RF: 3 Shingrix (PF) 50 mcg/0.5 mL suspension for reconstitution 0.5 ml IM ONCE Qty: 1 RF: 0 nadolol 20 MG tablet 30 mg PO DAILY RF: 0 lactulose 10 gram/15 mL solution 15 - 30 ml PO 1-2XD RF: 0 furosemide [Lasix] 20 mg tablet 20 mg PO DAILY PRNRF: 0 spironolactone 100 mg tablet 100 mg PO DAILY PRNRF: 0 Referrals: Divina Lopes ARNP [Primary Care Provider] -
== END 2021-03-31 14:32 | disposition home or self-care (01) ==
PROVIDERS: Emergency Provider Emergency Medicine; PCP Nurse Practitioner
DX: S93.401A Sprain of unspecified ligament of right ankle, initial encounter (principal); S96.911A Strain of unspecified muscle and tendon at ankle and foot level, right foot, initial encounter; X50.1XXA Overexertion from prolonged static or awkward postures, initial encounter
CPT/HCPCS: 73630; 99283

== ENCOUNTER → 2021-04-22 15:15 | Outpatient (CLI) | payer OTHER, MEDICAID, SELFPAY ==
[2021-04-22 16:00] LABS: Add Manual Diff / Slide Review NO; Basophils Absolute Auto 0 /uL (0-100); Basophils Percent Auto 0.7 % (0-2); Eosinophils Absolute Auto 100 /uL (0-450); Eosinophils Percent Auto 2.3 % (2-4); Hematocrit 40.3 % (36-46); Hemoglobin 13.6 g/dL (12.0-16.0); Lymphocytes Absolute Auto 1200 /uL (1100-4500); Lymphocytes Percent Auto 22.9 % (25-40); Mean Corpuscular HGB Conc 33.7 % (30-36); Mean Corpuscular Hemoglobin 32.6 PG (26-34); Mean Corpuscular Volume 96.6 fL (80-100); Monocytes Absolute Auto 600 /uL (0-900); Monocytes Percent Auto 12.4 % (3-14); Neutrophils Absolute Auto 3100 /uL (1500-7000); Neutrophils Percent Auto 61.7 % (50-75); Platelet Count 103 X10^3/uL (150-400); Red Blood Cell Count 4.18 X10^6/uL (4.0-5.2)
[2021-04-22 16:07] LABS: INR 1.4 (0.9-1.3)
[2021-04-22 16:15] LABS: Alanine Aminotransferase 84 IU/L (<35); Albumin 4.3 g/dL (3.5-5.0); Albumin Globulin Ratio 1.2 (1.0-2.8); Alkaline Phosphatase 83 U/L (38-126); Aspartate Aminotransferase 144 IU/L (14-36); BUN Creatinine Ratio 29.6 (6-22); Bilirubin Total 0.9 mg/dL (0.2-1.3); Blood Urea Nitrogen 16 mg/dL (7-17); Calcium 10.3 mg/dL (8.4-10.2); Carbon Dioxide 26 mmol/L (22-32); Chloride 105 mmol/L (98-107); Estimated Glomerular Filt Rate > 60.0 mL/min (>60); Globulin 3.7 g/dL (1.7-4.1); Glucose 87 mg/dL (80-110); HEMOLYSIS < 15 (0-50); Potassium 3.5 mmol/L (3.4-5.1); Sodium 140 mmol/L (137-145)
[2021-04-23 06:54] LABS: Alpha Fetoprotein 4.9 ng/mL (0.0-8.3)
== END ==
PROVIDERS: PCP Nurse Practitioner; Referring Provider Internal Medicine Gastroenterology; Visit Provider Internal Medicine Gastroenterology
DX: K70.30 Alcoholic cirrhosis of liver without ascites (principal); R18.8 Other ascites; K72.90 Hepatic failure, unspecified without coma
CPT/HCPCS: 36415; 80053; 82105; 85025; 85610

== ENCOUNTER 2021-06-27 00:25 | Emergency (ER) | payer OTHER, MEDICAID, SELFPAY ==
[2021-06-27] VITALS (24 sets, daily range): BP systolic 91–146; BP diastolic 58–92; PULSE 79–99; RESP 16–18; TEMP 36.5; O2SAT 90–98; BMI 23.0
--- NOTE | 2021-06-27 00:45 | PC.NURSE ---
Assisted pt to ambulate to restroom and was unsuccessful in urinating at this time.
--- NOTE | 2021-06-27 00:52 | PC.NURSE ---
States took a handful of tylenol a few hours ago, states has been drinking a large amount of wine. denies daily drinking but reports does binge drink routinely
[2021-06-27 00:59] LABS: Add Manual Diff / Slide Review NO; Basophils Absolute Auto 100 /uL (0-100); Basophils Percent Auto 1.8 % (0-2); Eosinophils Absolute Auto 100 /uL (0-450); Eosinophils Percent Auto 1.5 % (2-4); Hematocrit 43.5 % (36-46); Hemoglobin 15.1 g/dL (12.0-16.0); Lymphocytes Absolute Auto 2400 /uL (1100-4500); Lymphocytes Percent Auto 40.2 % (25-40); Mean Corpuscular HGB Conc 34.7 % (30-36); Mean Corpuscular Volume 95.2 fL (80-100); Monocytes Absolute Auto 400 /uL (0-900); Neutrophils Absolute Auto 3100 /uL (1500-7000); Neutrophils Percent Auto 50.5 % (50-75); Platelet Count 149 X10^3/uL (150-400); Red Blood Cell Count 4.57 X10^6/uL (4.0-5.2); Red Cell Distribution Width 14.9 % (11.6-14.8); White Blood Cell Count 6.1 X10^3/uL (4.5-11.0)
[2021-06-27 01:03] LABS: Acetaminophen < 10 ug/mL (10-30); Salicylate < 1.0 mg/dL (<20)
[2021-06-27 01:05] LABS: Alanine Aminotransferase 106 IU/L (<35); Albumin 4.6 g/dL (3.5-5.0); Albumin Globulin Ratio 1.1 (1.0-2.8); Alkaline Phosphatase 87 U/L (38-126); Aspartate Aminotransferase 160 IU/L (14-36); BUN Creatinine Ratio 13.6 (6-22); Bilirubin Total 0.7 mg/dL (0.2-1.3); Blood Urea Nitrogen 9 mg/dL (7-17); Calcium 9.7 mg/dL (8.4-10.2); Carbon Dioxide 23 mmol/L (22-32); Chloride 114 mmol/L (98-107); Estimated Glomerular Filt Rate > 60.0 mL/min (>60); Globulin 4.3 g/dL (1.7-4.1); Glucose 100 mg/dL (80-110); Sodium 150 mmol/L (137-145); Total Protein 8.9 g/dL (6.3-8.2)
[2021-06-27 01:12] LABS: Ethanol (ETOH) 386 mg/dL; HEMOLYSIS 78 (0-50)
[2021-06-27 01:40] LABS: TSH w/ Reflex to FT4 4.83 uIU/mL (0.47-4.68)
--- NOTE | 2021-06-27 02:01 | ED.OVERDOSE ---
HPI - Overdose <Emily Maloney, DO - Last Filed: 06/27/21 17:56> General Chief Complaint: Toxicology Problem Stated Complaint: SI Time Seen by Provider: 06/27/21 00:36 Source: patient and EMS Mode of arrival: EMS History of Present Illness HPI Narrative: Patient is a 61-year-old female history of alcohol abuse although has been sober intermittently, she has end-stage liver disease, PTSD, esophageal varices, anxiety presenting today with suicide attempt. She says that she has been sober for a period of time she had some stress and triggers yesterday which she does not want to disclose which led her to drink alcohol and she took a handful of Tylenol earlier today. She is under the dose of the Tylenol she is unsure how many tablets she took. She does not think that her intent was to harm herself although she cannot be sure. She has previously attempted he said nothing happened last time. She lives with her elderly parents were very supportive. She is followed closely with Dr. Reis although I do not see a note from her since January 2021. He says she was having thoughts of suicide she reached out to the suicide hotline explained what was happening the next thing she knew an ambulance was at her door. She is cooperative and she does want help however she currently is denying suicidal ideations. She does admit to drinking alcohol this evening in taking Tylenol, he denies other drug use, or inappropriate medications. She is overall remorseful, and worried about her parents. Related Data Home Medications Medication Instructions Recorded Confirmed nadolol 20 mg tablet 30 mg PO DAILY 04/23/18 04/25/21 liothyronine 5 mcg tablet (Cytomel) 10 mcg PO DAILY tab 05/31/18 04/25/21 lactulose 10 gram/15 mL oral 15 - 30 ml PO 1-2XD 12/27/18 04/25/21 solution levothyroxine 100 mcg capsule 100 mcg PO DAILY 12/19/19 04/25/21 furosemide 20 mg tablet (Lasix) 20 mg PO DAILY PRN 04/17/20 04/25/21 spironolactone 100 mg tablet 100 mg PO DAILY PRN 04/17/20 04/25/21 Previous Rx's Medication Instructions Recorded rifaximin 550 mg tablet (Xifaxan) 550 mg PO BID #60 tab 09/16/16 varicella-zoster glycoE [id number] 0.5 ml IM ONCE #1 ea 03/12/21 adj(PF) 50 mcg/0.5 mL IM susp, kit (Shingrix (PF)) nortriptyline 25 mg capsule 25 mg PO BEDTIME PRN #30 cap 04/17/21 gabapentin 300 mg capsule 300 mg PO QID #360 cap 04/25/21 lorazepam 1 mg tablet 1 mg PO DAILY #30 tab 06/27/21 Allergies Allergy/AdvReac Type Severity Reaction Status Date / Time No Known Drug Allergies Allergy Verified 03/12/21 14:43 Review of Systems <Emily Maloney DO - Last Filed: 06/27/21 17:56> Review of Systems Narrative: GENERAL: Denies chills, fatigue, malaise, fever, sweats, travel HEENT: Denies sinus pain, ear pain, sore throat, difficulty swallowing, neck pain RESPIRATORY: Denies dyspnea, cough, wheezing, hemoptysis, sputum. CARDIOVASCULAR: Denies chest pain, palpitations, orthopnea, edema GASTROINTESTINAL: Denies nausea, vomiting, abdominal pain, diarrhea, constipation, melena. : Denies dysuria, frequency, incontinence, hematuria, urinary retention, flank pain. MUSCULOSKELETAL: Denies weakness, joint pain, or bony pain SKIN: No rash, no erythema, no pruritus NEUROLOGIC: Denies weakness, dizziness, headache, numbness, change in speech, confusion PSYCHIATRIC: See HPI 12 point review of systems is negative except for those stated above and HPI Patient History <DO Crystal Correa Last Filed: 06/27/21 17:56> Medical History (Updated 06/27/21 @ 10:11 by Tiana Walton MD) Anxiety Ascites due to alcoholic cirrhosis Cardiac arrhythmia Chicken pox Cirrhosis (2012) Coagulation disorder (2012) Depression Eczema (2014) EV (esophageal varices) (10/2015) GERD (gastroesophageal reflux disease) GI bleeding (2015) History of alcohol abuse (12/27/15) History of blood transfusion (10/2015) History of heavy periods (2014) Hypercalcemia Hypertension Hypothyroidism Intermittent palpitations (04/2019) Measles Mumps Nonalcoholic fatty liver disease Ovarian cyst (2012) Painful menstrual periods (2012) Pancreatitis Portal hypertensive gastropathy (05/2015) Psoriasis (2014) PTSD (post-traumatic stress disorder) (1999) SBO (small bowel obstruction) Shortness of breath Weight gain Surgical History H/O bilateral oophorectomy History of appendectomy History of cholecystectomy History of esophagogastroduodenoscopy (EGD) (01/2009) History of esophagogastroduodenoscopy (EGD) (05/2015) History of inguinal hernia repair Status post appendectomy Status post colonoscopy (01/2009) Status post hernia repair Status post hysteroscopy (06/17/11) Status post laparoscopic supracervical hysterectomy (08/25/16) Family History Grandfather Heart disease DC (myocardial infarction) Grandmother Alcoholism Father No problems noted. Mother No problems noted. Grandfather Heart disease Grandmother Colon cancer Brother No problems noted. Social History Smoking Status: Never smoker alcohol intake: current Smoking Status: Never smoker alcohol intake frequency: a few times a week Substance Use Type: does not use Exam <Emily Maloney, DO - Last Filed: 06/27/21 17:56> Initial Vital Signs Initial Vital Signs: Vital Signs Temperature 97.7 F 06/27/21 00:41 Pulse Rate 90 06/27/21 00:41 Respiratory Rate 16 06/27/21 00:41 Blood Pressure 130/90 06/27/21 00:41 Pulse Oximetry 98 06/27/21 00:41 GENERAL: Alert 61-year-old female nonjaundiced in no acute distress. HEENT: Head atraumatic,EOMI, pupils reactive, face symmetric, moist mucous membranes CARDIOVASCULAR: Regular rate and rhythm without murmurs, rubs or gallops. RESPIRATORY: Breath sounds equal bilaterally, no wheezes rales or rhonchi. ABDOMEN: Soft, nontender. Distension, positive fluid wave Normoactive bowel sounds all 4 quadrants. No guarding or rebound. EXTREMITIES: Normal range of motion, no clubbing or edema. Neurovascularly intact NEUROLOGICAL: Alert and oriented x4.Normal gait and speech. No tremor SKIN: Warm, dry, no laceration, no petechiae, no rashes or lesions. <Tiana Walton MD - Last Filed: 06/27/21 10:33> Initial Vital Signs Initial Vital Signs: Vital Signs Temperature 97.7 F 06/27/21 00:41 Pulse Rate 90 06/27/21 00:41 Respiratory Rate 16 06/27/21 00:41 Blood Pressure 130/90 06/27/21 00:41 Pulse Oximetry 98 06/27/21 00:41 Course <Emily Maloney DO - Last Filed: 06/27/21 17:56> Orders Ordered: Discontinued Medications Sodium Chloride (Normal Saline 0.9%) 1,000 mls @ 1,000 mls/hr IV BOLUS ONE Stop: 06/27/21 08:16 Last Infusion: 06/27/21 09:00 Dose: 0 mls/hr Documented by: Admin: 06/27/21 07:26 Dose: 1,000 mls/hr Documented by: SAMMY Vital Signs Vital signs: Vital Signs - 8 hr 06/27/21 10:00 06/27/21 10:30 Pulse Rate 97 H 92 H Respiratory Rate 18 18 Blood Pressure 121/79 124/83 Pulse Oximetry 95 95 <Tiana Walton MD - Last Filed: 06/27/21 10:33> Orders Ordered: Discontinued Medications Sodium Chloride (Normal Saline 0.9%) 1,000 mls @ 1,000 mls/hr IV BOLUS ONE Stop: 06/27/21 08:16 Last Infusion: 06/27/21 09:00 Dose: 0 mls/hr Documented by: Admin: 06/27/21 07:26 Dose: 1,000 mls/hr Documented by: SAMMY Vital Signs Vital signs: Vital Signs - 8 hr 06/27/21 10:00 06/27/21 10:30 Pulse Rate 97 H 92 H Respiratory Rate 18 18 Blood Pressure 121/79 124/83 Pulse Oximetry 95 95 MDM - Overdose <DO Crystal Correa Last Filed: 06/27/21 17:56> Lab Data Result diagrams: 06/27/21 00:35 06/27/21 00:35 Labs: Lab Results 06/27/21 06/27/21 06/27/21 Range/Units 00:35 00:35 00:35 WBC 6.1 (4.5-11.0) X10^3/uL RBC 4.57 (4.0-5.2) X10^6/uL Hgb 15.1 (12.0-16.0) g/dL Hct 43.5 (36-46) % MCV 95.2 (80-100) fL MCH 33.0 (26-34) PG MCHC 34.7 (30-36) % RDW 14.9 H (11.6-14.8) % Plt Count 149 L (150-400) X10^3/uL Neut % (Auto) 50.5 (50-75) % Lymph % (Auto) 40.2 H (25-40) % [place] % (Auto) 6.0 (3-14) % Eos % (Auto) 1.5 L (2-4) % Baso % (Auto) 1.8 (0-2) % Neut # (Auto) 3100 (3359-1272) /uL Lymph # (Auto) 2400 (6318-3802) /uL [place] # (Auto) 400 (0-900) /uL Eos # (Auto) 100 (0-450) /uL Baso # (Auto) 100 (0-100) /uL Sodium 150 H (137-145) mmol/L Potassium 4.0 (3.4-5.1) mmol/L Chloride 114 H (98-107) mmol/L Carbon Dioxide 23 (22-32) mmol/L BUN 9 (7-17) mg/dL Creatinine 0.66 (0.52-1.04) mg/dL Estimated GFR > 60.0 (>60) mL/min BUN/Creatinine Ratio 13.6 (6-22) Glucose 100 (80-110) mg/dL Calcium 9.7 (8.4-10.2) mg/dL Total Bilirubin 0.7 (0.2-1.3) mg/dL AST 160 H (14-36) IU/L ALT 106 H (<35) IU/L Alkaline Phosphatase 87 (38-126) U/L Total Protein 8.9 H (6.3-8.2) g/dL Albumin 4.6 (3.5-5.0) g/dL Globulin 4.3 H (1.7-4.1) g/dL Albumin/Globulin Ratio 1.1 (1.0-2.8) TSH 4.83 H (0.47-4.68) uIU/mL Free T4 1.40 (0.78-2.19) ng/dL Salicylates (<20) mg/dL U Opiates 300ng/mL cut (Negative) Ur Oxycodone Screen (Negative) Urine Methadone Screen (Negative) Acetaminophen (10-30) ug/mL Ur Barbiturates Screen (Negative) U Tricyclic Antidepress (Negative) Ur Phencyclidine Scrn (Negative) Ur Amphetamines Screen (Negative) U Methamphetamines Scrn (Negative) Ur MDMA Scrn (Ecstasy) (Negative) U Benzodiazepines Scrn (Negative) Urine Cocaine Screen (Negative) U Marijuana (THC) Screen (Negative) Ethyl Alcohol 386 H ( - 10) mg/dL SARS-CoV-2 (PCR) (Negative) 06/27/21 06/27/21 06/27/21 Range/Units 00:35 02:45 02:45 WBC (4.5-11.0) X10^3/uL RBC (4.0-5.2) X10^6/uL Hgb (12.0-16.0) g/dL Hct (36-46) % MCV (80-100) fL MCH (26-34) PG MCHC (30-36) % RDW (11.6-14.8) % Plt Count (150-400) X10^3/uL Neut % (Auto) (50-75) % Lymph % (Auto) (25-40) % [place] % (Auto) (3-14) % Eos % (Auto) (2-4) % Baso % (Auto) (0-2) % Neut # (Auto) (9111-4383) /uL Lymph # (Auto) (6246-6577) /uL [place]hel # (Auto) (0-900) /uL Eos # (Auto) (0-450) /uL Baso # (Auto) (0-100) /uL Sodium (137-145) mmol/L Potassium (3.4-5.1) mmol/L Chloride (98-107) mmol/L Carbon Dioxide (22-32) mmol/L BUN (7-17) mg/dL Creatinine (0.52-1.04) mg/dL Estimated GFR (>60) mL/min BUN/Creatinine Ratio (6-22) Glucose (80-110) mg/dL Calcium (8.4-10.2) mg/dL Total Bilirubin (0.2-1.3) mg/dL AST (14-36) IU/L ALT (<35) IU/L Alkaline Phosphatase (38-126) U/L Total Protein (6.3-8.2) g/dL Albumin (3.5-5.0) g/dL Globulin (1.7-4.1) g/dL Albumin/Globulin Ratio (1.0-2.8) TSH (0.47-4.68) uIU/mL Free T4 (0.78-2.19) ng/dL Salicylates < 1.0 (<20) mg/dL U Opiates 300ng/mL cut Negative (Negative) Ur Oxycodone Screen Negative (Negative) Urine Methadone Screen Negative (Negative) Acetaminophen < 10 L (10-30) ug/mL Ur Barbiturates Screen Negative (Negative) U Tricyclic Antidepress Positive H (Negative) Ur Phencyclidine Scrn Negative (Negative) Ur Amphetamines Screen Negative (Negative) U Methamphetamines Scrn Negative (Negative) Ur MDMA Scrn (Ecstasy) Negative (Negative) U Benzodiazepines Scrn Positive H (Negative) Urine Cocaine Screen Negative (Negative) U Marijuana (THC) Screen Negative (Negative) Ethyl Alcohol ( - 10) mg/dL SARS-CoV-2 (PCR) Negative (Negative) 06/27/21 Range/Units 05:00 WBC (4.5-11.0) X10^3/uL RBC (4.0-5.2) X10^6/uL Hgb (12.0-16.0) g/dL Hct (36-46) % MCV (80-100) fL MCH (26-34) PG MCHC (30-36) % RDW (11.6-14.8) % Plt Count (150-400) X10^3/uL Neut % (Auto) (50-75) % Lymph % (Auto) (25-40) % [place] % (Auto) (3-14) % Eos % (Auto) (2-4) % Baso % (Auto) (0-2) % Neut # (Auto) (3649-7631) /uL Lymph # (Auto) (6409-2774) /uL [place]hel # (Auto) (0-900) /uL Eos # (Auto) (0-450) /uL Baso # (Auto) (0-100) /uL Sodium (137-145) mmol/L Potassium (3.4-5.1) mmol/L Chloride (98-107) mmol/L Carbon Dioxide (22-32) mmol/L BUN (7-17) mg/dL Creatinine (0.52-1.04) mg/dL Estimated GFR (>60) mL/min BUN/Creatinine Ratio (6-22) Glucose (80-110) mg/dL Calcium (8.4-10.2) mg/dL Total Bilirubin (0.2-1.3) mg/dL AST (14-36) IU/L ALT (<35) IU/L Alkaline Phosphatase (38-126) U/L Total Protein (6.3-8.2) g/dL Albumin (3.5-5.0) g/dL Globulin (1.7-4.1) g/dL Albumin/Globulin Ratio (1.0-2.8) TSH (0.47-4.68) uIU/mL Free T4 (0.78-2.19) ng/dL Salicylates (<20) mg/dL U Opiates 300ng/mL cut (Negative) Ur Oxycodone Screen (Negative) Urine Methadone Screen (Negative) Acetaminophen < 10 L (10-30) ug/mL Ur Barbiturates Screen (Negative) U Tricyclic Antidepress (Negative) Ur Phencyclidine Scrn (Negative) Ur Amphetamines Screen (Negative) U Methamphetamines Scrn (Negative) Ur MDMA Scrn (Ecstasy) (Negative) U Benzodiazepines Scrn (Negative) Urine Cocaine Screen (Negative) U Marijuana (THC) Screen (Negative) Ethyl Alcohol ( - 10) mg/dL SARS-CoV-2 (PCR) (Negative) Urine Dip Bedside Urine Glucose Negative Bedside Urine Bilirubin - Negative Bedside Urine Ketone - Negative Urine Specific [place] 1.015 Bedside Urine Occult Blood - Negative Bedside Urine pH 6.0 Bedside Urine Protein - Negative Bedside Urine Urobilinogen - Negative Bedside Urine Nitrite - Negative Bedside Urine Leukocytes - Negative Esterase ECG Data Interpretation: Normal sinus rhythm rate 89 KS interval 144 QRS [address] changes MDM Narrative Medical decision making narrative: Patient does have history of suicide attempt, she has history of anxiety depression and PTSD along with substance abuse. She is not willing to disclose offensive triggered her today. She also is not really willing to stay in the hospital however she is cooperative. Awaiting social work consult. Patient signed out to Dr. Walton for further management <Tiana Walton MD - Last Filed: 06/27/21 10:33> Lab Data Labs: Lab Results 06/27/21 06/27/21 06/27/21 Range/Units 00:35 00:35 00:35 WBC 6.1 (4.5-11.0) X10^3/uL RBC 4.57 (4.0-5.2) X10^6/uL Hgb 15.1 (12.0-16.0) g/dL Hct 43.5 (36-46) % MCV 95.2 (80-100) fL MCH 33.0 (26-34) PG MCHC 34.7 (30-36) % RDW 14.9 H (11.6-14.8) % Plt Count 149 L (150-400) X10^3/uL Neut % (Auto) 50.5 (50-75) % Lymph % (Auto) 40.2 H (25-40) % [place] % (Auto) 6.0 (3-14) % Eos % (Auto) 1.5 L (2-4) % Baso % (Auto) 1.8 (0-2) % Neut # (Auto) 3100 (4325-4410) /uL Lymph # (Auto) 2400 (2453-4958) /uL [place] # (Auto) 400 (0-900) /uL Eos # (Auto) 100 (0-450) /uL Baso # (Auto) 100 (0-100) /uL Sodium 150 H (137-145) mmol/L Potassium 4.0 (3.4-5.1) mmol/L Chloride 114 H (98-107) mmol/L Carbon Dioxide 23 (22-32) mmol/L BUN 9 (7-17) mg/dL Creatinine 0.66 (0.52-1.04) mg/dL Estimated GFR > 60.0 (>60) mL/min BUN/Creatinine Ratio 13.6 (6-22) Glucose 100 (80-110) mg/dL Calcium 9.7 (8.4-10.2) mg/dL Total Bilirubin 0.7 (0.2-1.3) mg/dL AST 160 H (14-36) IU/L ALT 106 H (<35) IU/L Alkaline Phosphatase 87 (38-126) U/L Total Protein 8.9 H (6.3-8.2) g/dL Albumin 4.6 (3.5-5.0) g/dL Globulin 4.3 H (1.7-4.1) g/dL Albumin/Globulin Ratio 1.1 (1.0-2.8) TSH 4.83 H (0.47-4.68) uIU/mL Free T4 1.40 (0.78-2.19) ng/dL Salicylates (<20) mg/dL U Opiates 300ng/mL cut (Negative) Ur Oxycodone Screen (Negative) Urine Methadone Screen (Negative) Acetaminophen (10-30) ug/mL Ur Barbiturates Screen (Negative) U Tricyclic Antidepress (Negative) Ur Phencyclidine Scrn (Negative) Ur Amphetamines Screen (Negative) U Methamphetamines Scrn (Negative) Ur MDMA Scrn (Ecstasy) (Negative) U Benzodiazepines Scrn (Negative) Urine Cocaine Screen (Negative) U Marijuana (THC) Screen (Negative) Ethyl Alcohol 386 H ( - 10) mg/dL SARS-CoV-2 (PCR) (Negative) 06/27/21 06/27/21 06/27/21 Range/Units 00:35 02:45 02:45 WBC (4.5-11.0) X10^3/uL RBC (4.0-5.2) X10^6/uL Hgb (12.0-16.0) g/dL Hct (36-46) % MCV (80-100) fL MCH (26-34) PG MCHC (30-36) % RDW (11.6-14.8) % Plt Count (150-400) X10^3/uL Neut % (Auto) (50-75) % Lymph % (Auto) (25-40) % [place] % (Auto) (3-14) % Eos % (Auto) (2-4) % Baso % (Auto) (0-2) % Neut # (Auto) (7412-5909) /uL Lymph # (Auto) (6992-7460) /uL Bethel # (Auto) (0-900) /uL Eos # (Auto) (0-450) /uL Baso # (Auto) (0-100) /uL Sodium (137-145) mmol/L Potassium (3.4-5.1) mmol/L Chloride (98-107) mmol/L Carbon Dioxide (22-32) mmol/L BUN (7-17) mg/dL Creatinine (0.52-1.04) mg/dL Estimated GFR (>60) mL/min BUN/Creatinine Ratio (6-22) Glucose (80-110) mg/dL Calcium (8.4-10.2) mg/dL Total Bilirubin (0.2-1.3) mg/dL AST (14-36) IU/L ALT (<35) IU/L Alkaline Phosphatase (38-126) U/L Total Protein (6.3-8.2) g/dL Albumin (3.5-5.0) g/dL Globulin (1.7-4.1) g/dL Albumin/Globulin Ratio (1.0-2.8) TSH (0.47-4.68) uIU/mL Free T4 (0.78-2.19) ng/dL Salicylates < 1.0 (<20) mg/dL U Opiates 300ng/mL cut Negative (Negative) Ur Oxycodone Screen Negative (Negative) Urine Methadone Screen Negative (Negative) Acetaminophen < 10 L (10-30) ug/mL Ur Barbiturates Screen Negative (Negative) U Tricyclic Antidepress Positive H (Negative) Ur Phencyclidine Scrn Negative (Negative) Ur Amphetamines Screen Negative (Negative) U Methamphetamines Scrn Negative (Negative) Ur MDMA Scrn (Ecstasy) Negative (Negative) U Benzodiazepines Scrn Positive H (Negative) Urine Cocaine Screen Negative (Negative) U Marijuana (THC) Screen Negative (Negative) Ethyl Alcohol ( - 10) mg/dL SARS-CoV-2 (PCR) Negative (Negative) 06/27/21 Range/Units 05:00 WBC (4.5-11.0) X10^3/uL RBC (4.0-5.2) X10^6/uL Hgb (12.0-16.0) g/dL Hct (36-46) % MCV (80-100) fL MCH (26-34) PG MCHC (30-36) % RDW (11.6-14.8) % Plt Count (150-400) X10^3/uL Neut % (Auto) (50-75) % Lymph % (Auto) (25-40) % [place] % (Auto) (3-14) % Eos % (Auto) (2-4) % Baso % (Auto) (0-2) % Neut # (Auto) (6400-3338) /uL Lymph # (Auto) (3247-5462) /uL [place]hel # (Auto) (0-900) /uL Eos # (Auto) (0-450) /uL Baso # (Auto) (0-100) /uL Sodium (137-145) mmol/L Potassium (3.4-5.1) mmol/L Chloride (98-107) mmol/L Carbon Dioxide (22-32) mmol/L BUN (7-17) mg/dL Creatinine (0.52-1.04) mg/dL Estimated GFR (>60) mL/min BUN/Creatinine Ratio (6-22) Glucose (80-110) mg/dL Calcium (8.4-10.2) mg/dL Total Bilirubin (0.2-1.3) mg/dL AST (14-36) IU/L ALT (<35) IU/L Alkaline Phosphatase (38-126) U/L Total Protein (6.3-8.2) g/dL Albumin (3.5-5.0) g/dL Globulin (1.7-4.1) g/dL Albumin/Globulin Ratio (1.0-2.8) TSH (0.47-4.68) uIU/mL Free T4 (0.78-2.19) ng/dL Salicylates (<20) mg/dL U Opiates 300ng/mL cut (Negative) Ur Oxycodone Screen (Negative) Urine Methadone Screen (Negative) Acetaminophen < 10 L (10-30) ug/mL Ur Barbiturates Screen (Negative) U Tricyclic Antidepress (Negative) Ur Phencyclidine Scrn (Negative) Ur Amphetamines Screen (Negative) U Methamphetamines Scrn (Negative) Ur MDMA Scrn (Ecstasy) (Negative) U Benzodiazepines Scrn (Negative) Urine Cocaine Screen (Negative) U Marijuana (THC) Screen (Negative) Ethyl Alcohol ( - 10) mg/dL SARS-CoV-2 (PCR) (Negative) Urine Dip Bedside Urine Glucose Negative Bedside Urine Bilirubin - Negative Bedside Urine Ketone - Negative Urine Specific [place] 1.015 Bedside Urine Occult Blood - Negative Bedside Urine pH 6.0 Bedside Urine Protein - Negative Bedside Urine Urobilinogen - Negative Bedside Urine Nitrite - Negative Bedside Urine Leukocytes - Negative Esterase MDM Narrative Medical decision making narrative: Patient does have history of suicide attempt, she has history of anxiety depression and PTSD along with substance abuse. She is not willing to disclose offensive triggered her today. She also is not really willing to stay in the hospital however she is cooperative. Awaiting social work consult. Patient signed out to Dr. Walton for further management 845am care is assumed. Patient is independently examined and long discussion ensues. She does have a history of PTSD is currently in counseling with both a psychiatrist and therapist continues to make significant progress. She is taking mindfulness classes. She has an extensive social network in place including parents, with whom she lives, adult children and a very clear plan set up through the crisis line in [facility] should she have any type of emotional distress. This episode began with a missed medical appointment. Two days ago she was post to have esophageal variceal banding done. She ended up sitting in the waiting room for a number of hours because of a misunderstanding and the appointment was canceled. This is something that had caused her significant anxiety to begin and to recognize that it was not going to happen was the triggering issue for her emotional distress. She began drinking and shortly thereafter recognized that this was not safe she called the crisis line and 911 was activated by the crisis line she was brought to the emergency room for further evaluation. In retrospect she does not believe she took any additional pills. She does know that any alcohol drink is a cry for help and a consideration of suicide given her severe liver disease. Excellent insight into that overall issue with, again, very clear boundaries and plan set up to prevent things getting worse. This morning she shows outstanding insight into her overall issues. Her last episode of alcohol use was over 9 months ago. Her parents are involved in feel very comfortable with having her come home. She has counseling appointment set up and also some follow-up scheduled with the [facility] addiction facility. At this time she is absolutely not suicidal, has a safe discharge plan close psychiatric as well as addiction medicine follow-up and will be discharged home. Discharge Plan Departure Patient Disposition: Home Clinical Impression: Acute situational disturbance, End stage liver disease, PTSD (post-traumatic stress disorder), Alcohol use disorder, Acute alcohol intoxication Instructions: DI for Suicidal Ideation-Adult Activity Restrictions/Additional Instructions: It was wonderful to see you again Ani I am sorry that the scheduling incident with your EGD was so stressful and set off one of your ?dark moments?. You have an exceptional safety net work in place and it worked well last night. You were brought to the emergency department early and seem to be doing significantly better this morning. I encourage you to continue all lines of communication and help with your counselor, doctor, parents and children. I wish you the best of luck as you continue in this healing journey. Prescriptions: No Action levothyroxine 100 mcg capsule 100 mcg PO DAILY 0RF Xifaxan 550 MG tablet 550 mg PO BID Qty: 60 11RF nortriptyline 25 mg capsule 25 mg PO BEDTIME PRN (Reason: insomnia) Qty: 30 5RF lorazepam 1 mg tablet 1 mg PO DAILY Qty: 30 5RF liothyronine [Cytomel] 5 mcg tablet 10 mcg PO DAILY 0RF Shingrix (PF) 50 mcg/0.5 mL suspension for reconstitution 0.5 ml IM ONCE Qty: 1 0RF Rx Instructions: as a single dose gabapentin 300 mg capsule 300 mg PO QID Qty: 360 3RF Rx Instructions: Take 1 cap up to 4x/day for pain. nadolol 20 MG tablet 30 mg PO DAILY 0RF lactulose 10 gram/15 mL solution 15 - 30 ml PO 1-2XD 0RF Label Comments: take 15 TO 30ML by mouth one to two times a day furosemide [Lasix] 20 mg tablet 20 mg PO DAILY [id number] spironolactone 100 mg tablet 100 mg PO DAILY [id number] Referrals: Divina Lopes ARNP [Primary Care Provider] -
[2021-06-27 03:18] LABS: UR Morphine/Opiate cutoff 300 Negative (Negative); Ur Creatinine Normal (Normal); Ur Specific Gravity Normal (Normal); Urine Amphetamines Negative (Negative); Urine Barbiturates Negative (Negative); Urine Benzodiazepines Positive (Negative); Urine Cocaine Negative (Negative); Urine MDMA Negative (Negative); Urine Methadone Negative (Negative); Urine Methamphetamines Negative (Negative); Urine Phencyclidine Negative (Negative); Urine Tetrahydrocannabinol Negative (Negative); Urine pH Normal (Normal)
[2021-06-27 03:19] LABS: Urine Oxycodone Negative (Negative); Urine Tricyclic Antidepressant Positive (Negative)
[2021-06-27 03:27] LABS: COVID19 -Nasal RAPID Negative (Negative)
[2021-06-27 05:25] LABS: Acetaminophen < 10 ug/mL (10-30)
[2021-06-27] MEDS: SODIUM CHLORIDE 0.9% 1,000 ML 1000 ML IV (07:26)
--- NOTE | 2021-06-27 09:57 | PC.NURSE ---
Patient took 1 1/2 tablets of Nadolol. Ok per Dr Walton
--- NOTE | 2021-06-27 15:07 | CM.SWNOTE ---
[employer] Note Received call from [facility]. Hernandez explained when his clients arrive to the acute care floor or ED he gets a notification. Hernandez provides outpatient support to this client; unsure what capacity. Suggested Hernandez contact this client directly and he agreed to do so. REBA Hinson
== END 2021-06-27 10:45 | disposition home or self-care (01) ==
PROVIDERS: Emergency Provider Emergency Medicine; PCP Nurse Practitioner
DX: F43.0 Acute stress reaction (principal); K72.10 Chronic hepatic failure without coma; F43.10 Post-traumatic stress disorder, unspecified; F10.929 Alcohol use, unspecified with intoxication, unspecified; Y90.8 Blood alcohol level of 240 mg/100 ml or more; Z20.822 Contact with and (suspected) exposure to COVID-19
CPT/HCPCS: 36415; 80053; 80305; 80320; 80329; 81003; 84439; 84443; 85025; 87635; 93005; 93010; 96360; 99284; C9803; G0480

== ENCOUNTER 2021-09-28 21:01 | Emergency (ER) | payer OTHER, MEDICAID, SELFPAY ==
[2021-09-28 21:26] VITALS: BP 161/90; PULSE 88; RESP 15; TEMP 36.3; O2SAT 97; BMI 23.6
[2021-09-28 23:21] LABS: Add Manual Diff / Slide Review NO; Basophils Absolute Auto 0 /uL (0-100); Basophils Percent Auto 0.4 % (0-2); Eosinophils Absolute Auto 100 /uL (0-450); Eosinophils Percent Auto 2.4 % (2-4); Hematocrit 39.1 % (36-46); Hemoglobin 13.5 g/dL (12.0-16.0); Lymphocytes Absolute Auto 900 /uL (1100-4500); Lymphocytes Percent Auto 19.5 % (25-40); Mean Corpuscular HGB Conc 34.5 % (30-36); Mean Corpuscular Hemoglobin 33.4 PG (26-34); Mean Corpuscular Volume 96.7 fL (80-100); Monocytes Absolute Auto 400 /uL (0-900); Monocytes Percent Auto 9.7 % (3-14); Neutrophils Absolute Auto 3000 /uL (1500-7000); Platelet Count 117 X10^3/uL (150-400); Red Blood Cell Count 4.04 X10^6/uL (4.0-5.2); Red Cell Distribution Width 15.8 % (11.6-14.8); White Blood Cell Count 4.4 X10^3/uL (4.5-11.0)
[2021-09-28 23:30] LABS: INR 1.3 (0.9-1.3); Prothrombin Time 14.7 SECONDS (10.1-12.7)
[2021-09-28 23:33] LABS: PTT Partial Thromboplastin Tim 37 SECONDS (26.4-36.2)
[2021-09-28 23:56] LABS: Alanine Aminotransferase 56 IU/L (<35); Albumin 4.4 g/dL (3.5-5.0); Alkaline Phosphatase 85 U/L (38-126); Aspartate Aminotransferase 109 IU/L (14-36); BUN Creatinine Ratio 30.8 (6-22); Bilirubin Total 1.1 mg/dL (0.2-1.3); Blood Urea Nitrogen 16 mg/dL (7-17); Calcium 10.1 mg/dL (8.4-10.2); Carbon Dioxide 27 mmol/L (22-32); Chloride 107 mmol/L (98-107); Estimated Glomerular Filt Rate > 60.0 mL/min (>60); Globulin 4.3 g/dL (1.7-4.1); Glucose 105 mg/dL (80-110); HEMOLYSIS < 15 (0-50); Potassium 3.7 mmol/L (3.4-5.1); Sodium 142 mmol/L (137-145); Total Protein 8.7 g/dL (6.3-8.2)
[2021-09-28 23:57] LABS: Lactate (Lactic Acid) 1.4 mmol/L (0.7-2.1)
--- NOTE | 2021-09-29 00:13 | ED_ITS ---
HPI - GI Bleed General Chief complaint: GI Bleed Stated complaint: some kind of internal bleeding Time Seen by Provider: 09/29/21 00:13 Source: patient Mode of arrival: Ambulatory History of Present Illness HPI Narrative: Patient is a 61-year-old female history alcohol abuse, cirrhosis, esophageal varices that were actually banded 2 weeks ago by her GI at [facility] presenting today with bright red rectal bleeding. She says it happened once 5 days ago she had an episode of significant bright red blood per rectum. She said it was just 1 then it stopped. She had another episode this morning that was the same. She has felt a little dizzy and lightheaded. She had another episode this evening which brought her to the emergency department. She is having some abdominal cramping. She says she had a colonoscopy about 2 years a go as far she knows it was normal. She is not on any hand take coagulation or anti-platelet medication Related Data Home Medications Medication Instructions Recorded Confirmed nadolol 20 mg tablet 30 mg PO DAILY 04/23/18 08/16/21 liothyronine 5 mcg tablet (Cytomel) 10 mcg PO DAILY tab 05/31/18 08/16/21 lactulose 10 gram/15 mL oral 15 - 30 ml PO 1-2XD 12/27/18 08/16/21 solution levothyroxine 100 mcg capsule 100 mcg PO DAILY 12/19/19 08/16/21 furosemide 20 mg tablet (Lasix) 20 mg PO DAILY PRN 04/17/20 08/16/21 spironolactone 100 mg tablet 100 mg PO DAILY PRN 04/17/20 08/16/21 Previous Rx's Medication Instructions Recorded rifaximin 550 mg tablet (Xifaxan) 550 mg PO BID #60 tab 09/16/16 varicella-zoster glycoE [id number] 0.5 ml IM ONCE #1 ea 03/12/21 adj(PF) 50 mcg/0.5 mL IM susp, kit (Shingrix (PF)) gabapentin 300 mg capsule 300 mg PO QID #360 cap 04/25/21 lorazepam 1 mg tablet 1 mg PO DAILY #30 tab 08/16/21 nortriptyline 25 mg capsule 25 mg PO BEDTIME PRN #30 cap 08/16/21 Allergies Allergy/AdvReac Type Severity Reaction Status Date / Time No Known Drug Allergies Allergy Verified 03/12/21 14:43 Review of Systems Review of Systems Narrative: GENERAL: Denies chills, fatigue, malaise, fever, sweats, travel HEENT: Denies sinus pain, ear pain, sore throat, difficulty swallowing, neck pain RESPIRATORY: Denies dyspnea, cough, wheezing, hemoptysis, sputum. CARDIOVASCULAR: Denies chest pain, palpitations, orthopnea, edema GASTROINTESTINAL: See HPI : Denies dysuria, frequency, incontinence, hematuria, urinary retention, flank pain. MUSCULOSKELETAL: Denies weakness, joint pain, or bony pain SKIN: No rash, no erythema, no pruritus NEUROLOGIC: Denies weakness, dizziness, headache, numbness, change in speech, confusion PSYCHIATRIC: No concerning psychosocial issues. 12 point review of systems is negative except for those stated above and HPI Patient History Medical History Anxiety Ascites due to alcoholic cirrhosis Cardiac arrhythmia Chicken pox Cirrhosis (2012) Coagulation disorder (2012) Depression Eczema (2014) EV (esophageal varices) (10/2015) GERD (gastroesophageal reflux disease) GI bleeding (2015) History of alcohol abuse (12/27/15) History of blood transfusion (10/2015) History of heavy periods (2014) Hypercalcemia Hypertension Hypothyroidism Intermittent palpitations (04/2019) Measles Mumps Nonalcoholic fatty liver disease Ovarian cyst (2012) Painful menstrual periods (2012) Pancreatitis Portal hypertensive gastropathy (05/2015) Psoriasis (2014) PTSD (post-traumatic stress disorder) (1999) SBO (small bowel obstruction) Shortness of breath Weight gain Surgical History H/O bilateral oophorectomy History of appendectomy History of cholecystectomy History of esophagogastroduodenoscopy (EGD) (01/2009) History of esophagogastroduodenoscopy (EGD) (05/2015) History of inguinal hernia repair Status post appendectomy Status post colonoscopy (01/2009) Status post hernia repair Status post hysteroscopy (06/17/11) Status post laparoscopic supracervical hysterectomy (08/25/16) Family History Grandfather Heart disease [place] (myocardial infarction) Grandmother Alcoholism Father No problems noted. Mother No problems noted. Grandfather Heart disease Grandmother Colon cancer Brother No problems noted. Social History Smoking Status: Never smoker alcohol intake: current Smoking Status: Never smoker alcohol intake frequency: a few times a month Substance Use Type: does not use Exam Initial Vital Signs Initial Vital Signs: Vital Signs Temperature 97.4 F L 09/28/21 21:26 Pulse Rate 88 09/28/21 21:26 Respiratory Rate 15 09/28/21 21:26 Blood Pressure 161/90 H 09/28/21 21:26 Pulse Oximetry 97 09/28/21 21:26 GENERAL: Well-appearing 61-year-old female and in no acute distress. HEENT: Head atraumatic,EOMI, pupils reactive, face symmetric, moist mucous membranes CARDIOVASCULAR: Regular rate and rhythm without murmurs, rubs or gallops. RESPIRATORY: Breath sounds equal bilaterally, no wheezes rales or rhonchi. ABDOMEN: Soft, nontender. Normoactive bowel sounds all 4 quadrants. No guarding or rebound. RECTAL: Hemoccult-positive, no hemorrhoids, nontender EXTREMITIES: Normal range of motion, no clubbing or edema. Neurovascularly intact NEUROLOGICAL: Alert and oriented x4.Normal gait and speech. Cranial nerves II through XII grossly intact. SKIN: Warm, dry, no laceration, no petechiae, no rashes or lesions. Course Orders Ordered: ED Orders 09/28/21 23:05 Complete Blood Count AUTO DIFF Stat Partial Thromboplastin Time Stat Prothrombin Time INR Stat 09/28/21 23:35 Comprehensive Metabolic Panel Stat Lactate (Lactic Acid) Stat Type and Screen Stat 09/29/21 00:36 CT abdomen pelvis w con Stat 09/29/21 02:30 COVID19 -Nasal swab/Pre-Proc Stat 09/29/21 03:33 Hemoglobin and Hematocrit Stat Discontinued Medications Sodium Chloride (Normal Saline 0.9%) 1,000 mls @ 125 mls/hr IV CONT AGNIESZKA Last Infusion: 09/29/21 05:29 Dose: 0 mls/hr Documented by: Admin: 09/29/21 03:29 Dose: 125 mls/hr Documented by: GENESIS Pantoprazole Sodium (Pantoprazole 40 Mg Vial) 40 mg IV NOW ONE Stop: 09/29/21 03:19 Last Admin: 09/29/21 03:29 Dose: 40 mg Documented by: GENESIS Vital Signs Vital signs: Vital Signs - 8 hr 09/29/21 03:34 09/29/21 04:00 09/29/21 04:30 Pulse Rate 74 77 69 Blood Pressure 130/83 137/82 152/80 H Pulse Oximetry 100 98 96 09/29/21 05:00 Pulse Rate 77 Blood Pressure Pulse Oximetry 95 MDM - GI Bleed Lab Data Result diagrams: 09/29/21 03:33 09/28/21 23:35 Labs: Lab Results 09/28/21 09/28/21 09/28/21 Range/Units 23:05 23:05 23:35 WBC 4.4 L (4.5-11.0) X10^3/uL RBC 4.04 (4.0-5.2) X10^6/uL Hgb 13.5 (12.0-16.0) g/dL Hct 39.1 (36-46) % MCV 96.7 (80-100) fL MCH 33.4 (26-34) PG MCHC 34.5 (30-36) % RDW 15.8 H (11.6-14.8) % Plt Count 117 L (150-400) X10^3/uL Neut % (Auto) 68.0 (50-75) % Lymph % (Auto) 19.5 L (25-40) % Brown % (Auto) 9.7 (3-14) % Eos % (Auto) 2.4 (2-4) % Baso % (Auto) 0.4 (0-2) % Neut # (Auto) 3000 (8744-0931) /uL Lymph # (Auto) 900 L (5852-0190) /uL Brown # (Auto) 400 (0-900) /uL Eos # (Auto) 100 (0-450) /uL Baso # (Auto) 0 (0-100) /uL PT 14.7 H (10.1-12.7) SECONDS INR 1.3 (0.9-1.3) APTT 37 H (26.4-36.2) SECONDS Sodium (137-145) mmol/L Potassium (3.4-5.1) mmol/L Chloride (98-107) mmol/L Carbon Dioxide (22-32) mmol/L BUN (7-17) mg/dL Creatinine (0.52-1.04) mg/dL Estimated GFR (>60) mL/min BUN/Creatinine Ratio (6-22) Glucose (80-110) mg/dL Lactate 1.4 (0.7-2.1) mmol/L Calcium (8.4-10.2) mg/dL Total Bilirubin (0.2-1.3) mg/dL AST (14-36) IU/L ALT (<35) IU/L Alkaline Phosphatase (38-126) U/L Total Protein (6.3-8.2) g/dL Albumin (3.5-5.0) g/dL Globulin (1.7-4.1) g/dL Albumin/Globulin Ratio (1.0-2.8) SARS-CoV-2 (PCR) (Negative) Blood Type Antibody Screen 09/28/21 09/28/21 09/29/21 Range/Units 23:35 23:35 02:30 WBC (4.5-11.0) X10^3/uL RBC (4.0-5.2) X10^6/uL Hgb (12.0-16.0) g/dL Hct (36-46) % MCV (80-100) fL MCH (26-34) PG MCHC (30-36) % RDW (11.6-14.8) % Plt Count (150-400) X10^3/uL Neut % (Auto) (50-75) % Lymph % (Auto) (25-40) % Brown % (Auto) (3-14) % Eos % (Auto) (2-4) % Baso % (Auto) (0-2) % Neut # (Auto) (5003-1505) /uL Lymph # (Auto) (0468-7613) /uL Brown # (Auto) (0-900) /uL Eos # (Auto) (0-450) /uL Baso # (Auto) (0-100) /uL PT (10.1-12.7) SECONDS INR (0.9-1.3) APTT (26.4-36.2) SECONDS Sodium 142 (137-145) mmol/L Potassium 3.7 (3.4-5.1) mmol/L Chloride 107 (98-107) mmol/L Carbon Dioxide 27 (22-32) mmol/L BUN 16 (7-17) mg/dL Creatinine 0.52 (0.52-1.04) mg/dL Estimated GFR > 60.0 (>60) mL/min BUN/Creatinine Ratio 30.8 H (6-22) Glucose 105 (80-110) mg/dL Lactate (0.7-2.1) mmol/L Calcium 10.1 (8.4-10.2) mg/dL Total Bilirubin 1.1 (0.2-1.3) mg/dL AST 109 H (14-36) IU/L ALT 56 H (<35) IU/L Alkaline Phosphatase 85 (38-126) U/L Total Protein 8.7 H (6.3-8.2) g/dL Albumin 4.4 (3.5-5.0) g/dL Globulin 4.3 H (1.7-4.1) g/dL Albumin/Globulin Ratio 1.0 (1.0-2.8) SARS-CoV-2 (PCR) Negative (Negative) Blood Type A Positive Antibody Screen Negative 09/29/21 Range/Units 03:33 WBC (4.5-11.0) X10^3/uL RBC (4.0-5.2) X10^6/uL Hgb 11.5 L (12.0-16.0) g/dL Hct 34.1 L (36-46) % MCV (80-100) fL MCH (26-34) PG MCHC (30-36) % RDW (11.6-14.8) % Plt Count (150-400) X10^3/uL Neut % (Auto) (50-75) % Lymph % (Auto) (25-40) % Brown % (Auto) (3-14) % Eos % (Auto) (2-4) % Baso % (Auto) (0-2) % Neut # (Auto) (4593-2606) /uL Lymph # (Auto) (7129-2380) /uL Brown # (Auto) (0-900) /uL Eos # (Auto) (0-450) /uL Baso # (Auto) (0-100) /uL PT (10.1-12.7) SECONDS INR (0.9-1.3) APTT (26.4-36.2) SECONDS Sodium (137-145) mmol/L Potassium (3.4-5.1) mmol/L Chloride (98-107) mmol/L Carbon Dioxide (22-32) mmol/L BUN (7-17) mg/dL Creatinine (0.52-1.04) mg/dL Estimated GFR (>60) mL/min BUN/Creatinine Ratio (6-22) Glucose (80-110) mg/dL Lactate (0.7-2.1) mmol/L Calcium (8.4-10.2) mg/dL Total Bilirubin (0.2-1.3) mg/dL AST (14-36) IU/L ALT (<35) IU/L Alkaline Phosphatase (38-126) U/L Total Protein (6.3-8.2) g/dL Albumin (3.5-5.0) g/dL Globulin (1.7-4.1) g/dL Albumin/Globulin Ratio (1.0-2.8) SARS-CoV-2 (PCR) (Negative) Blood Type Antibody Screen Imaging Data CT scan - abdomen/pelvis: Radiologist's Impression: PROCEDURE:? CT ABDOMEN PELVIS W CON ? INDICATIONS:? bright red blood, hx cirrhosis with esophageal varices ? TECHNIQUE:? After the administration of intravenous contrast, axial sections acquired from the lung bases to the pubic symphysis.? Coronal and sagittal reformats were performed.? For radiation dose reduction, the following was used:? automated exposure control, adjustment of mA and/or kV according to patient size.? ? COMPARISON:? [facility], CT, ABDOMEN/PELVIS WITH CONTRAST, 05/19/2015, 20:10.? [facility], CT, ABDOMEN/PELVIS WITH CONTRAST, 12/01/2014, 12:18. ? FINDINGS:? Image quality:? Excellent.? ? Lung bases:? Unremarkable. Heart:? No significant findings. ? ABDOMEN: Liver:? Fatty infiltrated diffusely with nodular margination and asymmetric enlargement of the left hepatic lobe consistent with underlying cirrhosis..? ? Gallbladder:? Surgically absent? ? Biliary ducts:? There is a new finding of a relatively large calculus in the expected position of the distal common bile duct measuring up to 7 x 9 mm seen on series 2, image 31.? The common duct above this level is moderately prominent in caliber..? ? Pancreas:? There is mild edema around the pancreatic head parenchyma, in an area associated with mild edema in the retroperitoneal fat immediately adjacent and more superiorly.? This is associated with a small calcification that may be located within the common duct just anterior to the superior mesenteric vein seen on series 2, image 28 measuring up to 3 x 4 mm.? Spleen:? Unremarkable.? ? Adrenal Glands:? Unremarkable.? ? Kidneys and Ureters:? Unremarkable.? ? ? Stomach and Bowel:? Stomach, small bowel loops, and colon are unremarkable.? Peritoneum:? No abnormal intraperitoneal fluid.? No free air.? ? Ventral Wall: ? No hernias.? Abdominal Nodes:? No retroperitoneal or mesenteric adenopathy by size criteria.? Vessels:? Aorta and inferior vena cava are normal in size.? ? PELVIS: Pelvic Organs:? Unremarkable.? ? Bladder:? Unremarkable.? ? Pelvic Nodes: No enlarged lymph nodes.? Miscellaneous: No hernias are seen. ? ? ? Bones:? Unremarkable.? IMPRESSION:? ? 1.? Cirrhotic change again seen within the liver which is diffusely fatty infiltrated. ? 2.? Mild edema along the retroperitoneal fat noted adjacent to the pancreatic head area, in this patient with what appears to be a large distal common bile duct stone and a possible main pancreatic ductal stone.? Prior cholecystectomy.? ? Dictated by: Pritesh Rogers M.D. on 09/29/2021 at 1:00 ? ? Approved by: Pritesh Rogers M.D. on 09/29/2021 at 1:06 ? MDM Narrative Medical decision making narrative: Patient actually started having bright red blood per rectum in the emergency department. She said it is bleeding quite a bit is. Happened when she to the restroom I did not see it. Repeat H&H does confirm a drop of 2 points without any normal saline dilution. she reports that the bleeding has stopped now. 0300 Dr. Navarro, at [facility] accepts patient if GI agrees that they need to keep be transferred 0400 Dr [place], states that it is worth transferring patient for a scope with recent banding. Suspects that band may have been dislodged. Discharge Plan Departure Patient Disposition: [facility] Clinical Impression: Acute GI bleeding Prescriptions: No Action lorazepam 1 mg tablet 1 mg PO DAILY Qty: 30 5RF nortriptyline 25 mg capsule 25 mg PO BEDTIME PRN (Reason: insomnia) Qty: 30 5RF levothyroxine 100 mcg capsule 100 mcg PO DAILY 0RF Xifaxan 550 MG tablet 550 mg PO BID Qty: 60 11RF liothyronine [Cytomel] 5 mcg tablet 10 mcg PO DAILY 0RF Shingrix (PF) 50 mcg/0.5 mL suspension for reconstitution 0.5 ml IM ONCE Qty: 1 0RF Rx Instructions: as a single dose gabapentin 300 mg capsule 300 mg PO QID Qty: 360 3RF Rx Instructions: Take 1 cap up to 4x/day for pain. nadolol 20 MG tablet 30 mg PO DAILY 0RF lactulose 10 gram/15 mL solution 15 - 30 ml PO 1-2XD 0RF Label Comments: take 15 TO 30ML by mouth one to two times a day furosemide [Lasix] 20 mg tablet 20 mg PO DAILY PRN0RF spironolactone 100 mg tablet 100 mg PO DAILY PRN0RF Referrals: Divina Lopes ARNP [Primary Care Provider] -
--- NOTE | 2021-09-29 00:36 | DI.CT.S_ITS ---
PROCEDURE: CT ABDOMEN PELVIS W CON INDICATIONS: bright red blood, hx cirrhosis with esophageal varices TECHNIQUE: After the administration of intravenous contrast, axial sections acquired from the lung bases to the pubic symphysis. Coronal and sagittal reformats were performed. For radiation dose reduction, the following was used: automated exposure control, adjustment of mA and/or kV according to patient size. COMPARISON: [facility], CT, ABDOMEN/PELVIS WITH CONTRAST, 05/19/2015, 20:10. [facility], CT, ABDOMEN/PELVIS WITH CONTRAST, 12/01/2014, 12:18. FINDINGS: Image quality: Excellent. Lung bases: Unremarkable. Heart: No significant findings. ABDOMEN: Liver: Fatty infiltrated diffusely with nodular margination and asymmetric enlargement of the left hepatic lobe consistent with underlying cirrhosis.. Gallbladder: Surgically absent Biliary ducts: There is a new finding of a relatively large calculus in the expected position of the distal common bile duct measuring up to 7 x 9 mm seen on series 2, image 31. The common duct above this level is moderately prominent in caliber.. Pancreas: There is mild edema around the pancreatic head parenchyma, in an area associated with mild edema in the retroperitoneal fat immediately adjacent and more superiorly. This is associated with a small calcification that may be located within the common duct just anterior to the superior mesenteric vein seen on series 2, image 28 measuring up to 3 x 4 mm. Spleen: Unremarkable. Adrenal Glands: Unremarkable. Kidneys and Ureters: Unremarkable. Stomach and Bowel: Stomach, small bowel loops, and colon are unremarkable. Peritoneum: No abnormal intraperitoneal fluid. No free air. Ventral Wall: No hernias. Abdominal Nodes: No retroperitoneal or mesenteric adenopathy by size criteria. Vessels: Aorta and inferior vena cava are normal in size. PELVIS: Pelvic Organs: Unremarkable. Bladder: Unremarkable. Pelvic Nodes: No enlarged lymph nodes. Miscellaneous: No hernias are seen. Bones: Unremarkable. IMPRESSION: 1. Cirrhotic change again seen within the liver which is diffusely fatty infiltrated. 2. Mild edema along the retroperitoneal fat noted adjacent to the pancreatic head area, in this patient with what appears to be a large distal common bile duct stone and a possible main pancreatic ductal stone. Prior cholecystectomy. Dictated by: Pritesh Rogers M.D. on 09/29/2021 at 1:00 Approved by: Pritesh Rogers M.D. on 09/29/2021 at 1:06
--- NOTE | 2021-09-29 02:26 | PC.NURSE ---
pt states she has been passing a lot of bright red blood pt has hx of previous GI bleed, pt denies any dizzines at this time
[2021-09-29 02:55] LABS: COVID19 -Nasal RAPID Negative (Negative)
[2021-09-29] MEDS: SODIUM CHLORIDE 0.9% 1,000 ML 125 ML IV (03:29)
[2021-09-29] MEDS: PANTOPRAZOLE 40 MG VIAL IV (03:29)
[2021-09-29 03:34] VITALS: BP 130/83; PULSE 74; O2SAT 100
[2021-09-29 03:42] LABS: Hematocrit 34.1 % (36-46); Hemoglobin 11.5 g/dL (12.0-16.0)
[2021-09-29 04:00] VITALS: BP 137/82; PULSE 77; O2SAT 98
[2021-09-29 04:30] VITALS: BP 152/80; PULSE 69; O2SAT 96
[2021-09-29 05:00] VITALS: PULSE 77; O2SAT 95
== END 2021-09-29 05:31 | disposition short-term general hospital (02) ==
PROVIDERS: Emergency Provider Emergency Medicine; PCP Nurse Practitioner
DX: K92.2 Gastrointestinal hemorrhage, unspecified (principal); R10.9 Unspecified abdominal pain; R42 Dizziness and giddiness; Z20.822 Contact with and (suspected) exposure to COVID-19
CPT/HCPCS: 36415; 74177; 80053; 83605; 85014; 85018; 85025; 85610; 85730; 86850; 86900; 86901; 87635; 96374; 99284; C9803; C9113; Q9967

== ENCOUNTER 2021-10-10 15:53 | Emergency (ER) | payer OTHER, MEDICAID, SELFPAY ==
[2021-10-10] VITALS (9 sets, daily range): BP systolic 97–146; BP diastolic 64–77; PULSE 82–85; RESP 17–25; TEMP 36.6; O2SAT 95–99; BMI 25.9
--- NOTE | 2021-10-10 16:18 | PC.NURSE ---
PIV attempt x2 unsuccessful
[2021-10-10 16:49] LABS: Add Manual Diff / Slide Review NO; Basophils Absolute Auto 0 /uL (0-100); Basophils Percent Auto 0.6 % (0-2); Eosinophils Absolute Auto 400 /uL (0-450); Eosinophils Percent Auto 5.7 % (2-4); Hematocrit 37.5 % (36-46); Hemoglobin 12.8 g/dL (12.0-16.0); Lymphocytes Absolute Auto 1600 /uL (1100-4500); Lymphocytes Percent Auto 24.1 % (25-40); Mean Corpuscular HGB Conc 34.2 % (30-36); Mean Corpuscular Hemoglobin 33.3 PG (26-34); Mean Corpuscular Volume 97.5 fL (80-100); Monocytes Absolute Auto 700 /uL (0-900); Monocytes Percent Auto 10.6 % (3-14); Neutrophils Absolute Auto 3900 /uL (1500-7000); Platelet Count 155 X10^3/uL (150-400); Red Blood Cell Count 3.85 X10^6/uL (4.0-5.2); Red Cell Distribution Width 15.3 % (11.6-14.8); White Blood Cell Count 6.6 X10^3/uL (4.5-11.0)
[2021-10-10 16:57] LABS: INR 1.3 (0.9-1.3); Prothrombin Time 15.1 SECONDS (10.1-12.7)
--- NOTE | 2021-10-10 16:59 | DI.CT.S_ITS ---
PROCEDURE: CT ABDOMEN PELVIS W CON INDICATIONS: GI Bleed TECHNIQUE: After the administration of intravenous contrast, axial sections acquired from the lung bases to the pubic symphysis. Coronal and sagittal reformats were performed. For radiation dose reduction, the following was used: automated exposure control, adjustment of mA and/or kV according to patient size. COMPARISON: [facility], CT, CT ABDOMEN PELVIS W CON, 09/29/2021, 0:41. [facility], CT, ABDOMEN/PELVIS WITH CONTRAST, 05/19/2015, 20:10. FINDINGS: Image quality: Excellent. Lung bases: Mild bibasilar atelectasis. Small hiatal hernia. Heart: No significant findings. ABDOMEN: Liver: Stable appearance of mild nodular liver contour and diffuse hypoattenuation. Gallbladder: Status post cholecystectomy. Biliary ducts: No intrahepatic biliary ductal dilatation. Pancreas: Mild peripancreatic stranding as before. Redemonstration of a 4 mm calcification near the ampulla/proximal main pancreatic duct. No significant pancreatic ductal dilatation. Redemonstration of a 9 x 7 mm stone in the expected location of the distal common bile duct. Spleen: Unremarkable. Adrenal Glands: Unremarkable. Kidneys and Ureters:Kidneys are symmetric in size and enhancement, and there is no obstructive uropathy. No perinephric inflammatory changes. Ureters are normal in course and caliber. Stomach and Bowel: Stomach, small bowel loops, and colon are unremarkable. No definite evidence for abnormal contrast enhancement within the visualized bowel or evidence suggest active extravasation. Peritoneum: No abnormal intraperitoneal fluid. No free air. Ventral Wall: No hernias. Abdominal Nodes: No retroperitoneal or mesenteric adenopathy by size criteria. Vessels: Aorta and inferior vena cava are normal in size. PELVIS: Pelvic Organs: Unremarkable. Bladder:Urinary bladder thickness appears normal for degree of distention. No perivesicular inflammatory stranding. Pelvic Nodes: No enlarged lymph nodes. Miscellaneous: No hernias are seen. Bones:No acute vertebral body compression fractures. Multilevel spondylitic changes throughout the imaged spine. No suspicious osseous lesions. IMPRESSION: 1. Relatively stable CT evaluation of the abdomen and pelvis with persistent calcifications noted in the expected location of the distal common bile duct and ampulla/proximal main pancreatic duct. Minimal peripancreatic stranding may represent mild pancreatitis. Recommend clinical and laboratory correlation. No significant biliary ductal dilatation seen. 2. Stable appearance of cirrhotic changes of the liver and associated hepatic steatosis. 3. No definite abnormalities identified to explain patient's history of gastrointestinal bleeding. 4. Status post cholecystectomy. Dictated by: Kingston Eduardo M.D. on 10/10/2021 at 18:28 Approved by: Kingston Eduardo M.D. on 10/10/2021 at 18:38
--- NOTE | 2021-10-10 16:59 | ED.GIBLEED ---
HPI - GI Bleed <Josep Dsouza PA-C - Last Filed: 10/10/21 20:01> General Chief complaint: GI Bleed Stated complaint: states bleeding internally Time Seen by Provider: 10/10/21 16:28 Source: patient Mode of arrival: Ambulatory History of Present Illness HPI Narrative: Patient is a 61-year-old female who presents to the ED reporting coffee-ground emesis that started yesterday. She has also had some black stools as well. She reports history of cirrhosis of the liver has had previous GI bleeds in the past. Her abdominal pain is diffuse she recently had and an upper his GI scope which showed no evidence of any bleeding at the time. She is having some ongoing nausea and vomiting. No reported diarrhea stools are just black consistency tarsi. No reported fever cough congestion shortness of breath chest pain. Patient has had required previous transfusions in the past she was a alcoholic in the past and was diagnosed with cirrhosis. Patient reports a history of pancreatitis in the past and is complaining some mild epigastric pain. She rates the pain to be a 2/10. Related Data Home Medications Medication Instructions Recorded Confirmed nadolol 20 mg tablet 30 mg PO DAILY 04/23/18 08/16/21 liothyronine 5 mcg tablet (Cytomel) 10 mcg PO DAILY tab 05/31/18 08/16/21 lactulose 10 gram/15 mL oral 15 - 30 ml PO 1-2XD 12/27/18 08/16/21 solution levothyroxine 100 mcg capsule 100 mcg PO DAILY 12/19/19 08/16/21 furosemide 20 mg tablet (Lasix) 20 mg PO DAILY PRN 04/17/20 08/16/21 spironolactone 100 mg tablet 100 mg PO DAILY PRN 04/17/20 08/16/21 ferrous sulfate 324 mg (65 mg 324 mg PO DAILY 10/09/21 10/09/21 iron) tablet,delayed release Previous Rx's Medication Instructions Recorded rifaximin 550 mg tablet (Xifaxan) 550 mg PO BID #60 tab 09/16/16 varicella-zoster glycoE [id number] 0.5 ml IM ONCE #1 ea 03/12/21 adj(PF) 50 mcg/0.5 mL IM susp, kit (Shingrix (PF)) gabapentin 300 mg capsule 300 mg PO QID #360 cap 04/25/21 lorazepam 1 mg tablet 1 mg PO DAILY #30 tab 08/16/21 nortriptyline 25 mg capsule 25 mg PO BEDTIME PRN #30 cap 08/16/21 Allergies Allergy/AdvReac Type Severity Reaction Status Date / Time No Known Drug Allergies Allergy Verified 10/09/21 10:01 Review of Systems <Josep Dsouza PA-C - Last Filed: 10/10/21 20:01> Review of Systems ROS Unobtainable: All systems reviewed & are unremarkable except as noted in HPI and below Constitutional Constitutional: Denies chills, Denies fatigue, Denies fever(s), Denies frequent falls, Denies lethargy and Denies weakness Eyes Eyes: Denies change in vision, Denies eye discharge, Denies irritation and Denies loss of vision ENT Ears, Nose, Mouth, and Throat: Denies change in voice, Denies dizziness, Denies neck pain, Denies sore throat and Denies throat swelling Cardiovascular Cardiovascular: Denies chest pain, Denies irregular heart rhythm, Denies lightheadedness, Denies palpitations, Denies dyspnea, Denies dyspnea on exertion and Denies orthopnea Respiratory Respiratory: Denies cough, Denies dyspnea, Denies dyspnea on exertion and Denies wheezing Gastrointestinal Gastrointestinal: Reports abdominal pain, Reports melena, Reports change in bowel habits, Reports change in stool character, Reports coffee ground emesis, Reports diarrhea, Reports nausea and Reports vomiting Genitourinary Genitourinary: Denies hematuria, Denies flank pain, Denies urinary incontinence and Denies urinary urgency Musculoskeletal Musculoskeletal: Denies back pain, Denies muscle weakness, Denies neck pain, Denies numbness and Denies tingling Integumentary/Breasts Skin/Breast: Denies pruritus, Denies erythema, Denies rash and Denies wounds Neurologic Neurologic: Denies behavioral changes, Denies confusion, Denies dizziness, Denies frequent falls, Denies loss of vision, Denies numbness, Denies tingling and Denies weakness Psychiatric Psychiatric: Denies anxiety, Denies behavioral changes, Denies confusion, Denies depression, Denies homicidal ideation and Denies suicidal ideation Endocrine Endocrine: Denies fatigue, Denies flushing and Denies palpitations Hematologic/Lymphatic Hematologic/Lymphatic: Denies easy bruising Allergic/Immunologic Allergic/Immunologic: Denies urticaria, Denies throat swelling and Denies wheezing Patient History <Josep Dsouza PA-C - Last Filed: 10/10/21 20:01> Medical History Anxiety Ascites due to alcoholic cirrhosis Cardiac arrhythmia Chicken pox Cirrhosis (2012) Coagulation disorder (2012) Depression Eczema (2014) EV (esophageal varices) (10/2015) GERD (gastroesophageal reflux disease) GI bleeding (2015) Hemorrhoids, internal History of alcohol abuse (12/27/15) History of blood transfusion (10/2015) History of heavy periods (2014) Hypercalcemia Hypertension Hypothyroidism Intermittent palpitations (04/2019) Measles Mumps Nonalcoholic fatty liver disease Ovarian cyst (2012) Painful menstrual periods (2012) Pancreatitis Portal hypertensive gastropathy (05/2015) Psoriasis (2014) PTSD (post-traumatic stress disorder) (1999) SBO (small bowel obstruction) Shortness of breath Weight gain Surgical History H/O bilateral oophorectomy History of appendectomy History of cholecystectomy History of esophagogastroduodenoscopy (EGD) (01/2009) History of esophagogastroduodenoscopy (EGD) (05/2015) History of inguinal hernia repair Status post appendectomy Status post colonoscopy (01/2009) Status post hernia repair Status post hysteroscopy (06/17/11) Status post laparoscopic supracervical hysterectomy (08/25/16) Family History Grandfather Heart disease [place] (myocardial infarction) Grandmother Alcoholism Father No problems noted. Mother No problems noted. Grandfather Heart disease Grandmother Colon cancer Brother No problems noted. Social History Smoking Status: Never smoker alcohol intake: current Smoking Status: Never smoker alcohol intake frequency: a few times a month Substance Use Type: does not use Exam <Josep Dsouza PA-C - Last Filed: 10/10/21 20:01> Initial Vital Signs Initial Vital Signs: Vital Signs Temperature 97.9 F 10/10/21 16:15 Pulse Rate 82 10/10/21 16:15 Respiratory Rate 17 03/31/22 16:15 Blood Pressure 146/77 H 10/10/21 16:15 Pulse Oximetry 98 10/10/21 16:15 Const General: cooperative, comfortable and frail appearing Nutritional Appearance: average body habitus and well nourished Orientation: Orientation [facility] Head: normal to inspection and normocephalic Ears: hearing grossly normal bilaterally and external ears normal Nose: external nose normal and nares normal Face and sinus: normal facial exam Chest Chest: normal inspection of the chest and normal palpation of entire chest wall Resp Effort & Inspection: normal respiratory effort and able to speak in complete sentences Auscultation: clear to auscultation bilaterally Cardio Palpation: normal PMI Rate: regular rate Rhythm: regular rhythm Heart Sounds: S1 normal and S2 normal GI Inspection: distended Palpation: soft and hepatomegaly Percussion: normal to percussion Auscultation: normal bowel sounds Skin General: no rashes or lesions noted and turgor normal Neuro General: patient alert, patient awake, patient oriented x3, moves all extremities and CN's II-XI intact bilaterally <Tiana Walton MD - Last Filed: 10/11/21 01:49> Initial Vital Signs Initial Vital Signs: Vital Signs Temperature 97.9 F 10/10/21 16:15 Pulse Rate 82 10/10/21 16:15 Respiratory Rate 17 10/10/21 16:15 Blood Pressure 146/77 H 10/10/21 16:15 Pulse Oximetry 98 10/10/21 16:15 Course <Josep Dsouza PA-C - Last Filed: 10/10/21 20:01> Orders Ordered: ED Orders 10/10/21 16:59 CT abdomen pelvis w con Stat 10/10/21 17:51 Urine Microscopic Stat 10/10/21 18:28 Ammonia (NH3) Stat Discontinued Medications Sodium Chloride (Normal Saline 0.9%) 1,000 mls @ 1,000 mls/hr IV BOLUS ONE Stop: 10/10/21 17:56 Last Infusion: 10/10/21 18:44 Dose: 0 mls/hr Documented by: Admin: 10/10/21 17:04 Dose: 1,000 mls/hr Documented by: SHYANN Ondansetron HCl (Ondansetron 4 Mg/2 Ml Inj) 4 mg IV NOW ONE Stop: 10/10/21 16:58 Last Admin: 10/10/21 17:05 Dose: 4 mg Documented by: SHYANN Pantoprazole Sodium (Pantoprazole 40 Mg Vial) 40 mg IV NOW ONE Stop: 10/10/21 16:58 Last Admin: 10/10/21 17:05 Dose: 40 mg Documented by: SHYANN Reevaluation(s) Reevaluation #1: Patient had all questions and concerns addressed about lab findings and CT. Spoke to patient about being admitted for the pancreatitis. Patient is not interested in staying she states that she has had pancreatitis in the past in her pain is not very severe. She will limit her p.o. intake this evening and monitor her symptoms. Vital Signs Vital signs: Vital Signs - 8 hr 10/10/21 18:00 10/10/21 18:30 10/10/21 19:00 Pulse Rate 84 85 83 Respiratory Rate 23 25 H 23 Blood Pressure 97/69 105/64 99/66 Pulse Oximetry 95 98 96 10/10/21 19:30 10/10/21 20:00 Pulse Rate 83 83 Respiratory Rate 19 19 Blood Pressure 103/70 102/68 Pulse Oximetry 98 97 <Tiana Walton MD - Last Filed: 10/11/21 01:49> Orders Ordered: ED Orders 10/10/21 16:59 CT abdomen pelvis w con Stat 10/10/21 17:51 Urine Microscopic Stat 10/10/21 18:28 Ammonia (NH3) Stat Discontinued Medications Sodium Chloride (Normal Saline 0.9%) 1,000 mls @ 1,000 mls/hr IV BOLUS ONE Stop: 10/10/21 17:56 Last Infusion: 10/10/21 18:44 Dose: 0 mls/hr Documented by: Admin: 10/10/21 17:04 Dose: 1,000 mls/hr Documented by: SHYANN Ondansetron HCl (Ondansetron 4 Mg/2 Ml Inj) 4 mg IV NOW ONE Stop: 10/10/21 16:58 Last Admin: 10/10/21 17:05 Dose: 4 mg Documented by: SHYANN Pantoprazole Sodium (Pantoprazole 40 Mg Vial) 40 mg IV NOW ONE Stop: 10/10/21 16:58 Last Admin: 10/10/21 17:05 Dose: 40 mg Documented by: SHYANN Vital Signs Vital signs: Vital Signs - 8 hr 10/10/21 18:00 10/10/21 18:30 10/10/21 19:00 Pulse Rate 84 85 83 Respiratory Rate 23 25 H 23 Blood Pressure 97/69 105/64 99/66 Pulse Oximetry 95 98 96 10/10/21 19:30 10/10/21 20:00 Pulse Rate 83 83 Respiratory Rate 19 19 Blood Pressure 103/70 102/68 Pulse Oximetry 98 97 MDM - GI Bleed <Josep Dsouza PA-C - Last Filed: 10/10/21 20:01> Differential Diagnosis Differential diagnosis: Likely Upper gastrointestinal hemorrhage and other (Pancreatitis) Lab Data Result diagrams: 10/10/21 16:15 10/10/21 16:15 Labs: Lab Results 10/10/21 10/10/21 10/10/21 Range/Units 16:15 16:15 16:15 WBC 6.6 (4.5-11.0) X10^3/uL RBC 3.85 L (4.0-5.2) X10^6/uL Hgb 12.8 (12.0-16.0) g/dL Hct 37.5 (36-46) % MCV 97.5 (80-100) fL MCH 33.3 (26-34) PG MCHC 34.2 (30-36) % RDW 15.3 H (11.6-14.8) % Plt Count 155 (150-400) X10^3/uL Neut % (Auto) 59.0 (50-75) % Lymph % (Auto) 24.1 L (25-40) % [place] % (Auto) 10.6 (3-14) % Eos % (Auto) 5.7 H (2-4) % Baso % (Auto) 0.6 (0-2) % Neut # (Auto) 3900 (1570-1081) /uL Lymph # (Auto) 1600 (7659-6685) /uL [place] # (Auto) 700 (0-900) /uL Eos # (Auto) 400 (0-450) /uL Baso # (Auto) 0 (0-100) /uL PT 15.1 H (10.1-12.7) SECONDS INR 1.3 (0.9-1.3) APTT 39 H (26.4-36.2) SECONDS Sodium 142 (137-145) mmol/L Potassium 3.8 (3.4-5.1) mmol/L Chloride 108 H (98-107) mmol/L Carbon Dioxide 25 (22-32) mmol/L BUN 25 H (7-17) mg/dL Creatinine 0.64 (0.52-1.04) mg/dL Estimated GFR > 60.0 (>60) mL/min BUN/Creatinine Ratio 39.1 H (6-22) Glucose 93 (80-110) mg/dL Calcium 10.2 (8.4-10.2) mg/dL Total Bilirubin 1.4 H (0.2-1.3) mg/dL AST 111 H (14-36) IU/L ALT 66 H (<35) IU/L Alkaline Phosphatase 78 (38-126) U/L Ammonia (9-30) umol/L Total Protein 8.9 H (6.3-8.2) g/dL Albumin 4.5 (3.5-5.0) g/dL Globulin 4.4 H (1.7-4.1) g/dL Albumin/Globulin Ratio 1.0 (1.0-2.8) Lipase (23-300) U/L Urine RBC (0-5/HPF) Urine WBC (0-5/HPF) Ur Squamous Epith Cells (0-5/HPF) Calcium Oxalate Crystal Amorphous Sediment Urine Bacteria (None) Urine Mucus (Negative) Ur Culture Indicated? Blood Type Antibody Screen 10/10/21 10/10/21 10/10/21 Range/Units 16:15 16:15 17:51 WBC (4.5-11.0) X10^3/uL RBC (4.0-5.2) X10^6/uL Hgb (12.0-16.0) g/dL Hct (36-46) % MCV (80-100) fL MCH (26-34) PG MCHC (30-36) % RDW (11.6-14.8) % Plt Count (150-400) X10^3/uL Neut % (Auto) (50-75) % Lymph % (Auto) (25-40) % [place] % (Auto) (3-14) % Eos % (Auto) (2-4) % Baso % (Auto) (0-2) % Neut # (Auto) (8226-6899) /uL Lymph # (Auto) (5347-8842) /uL [place] # (Auto) (0-900) /uL Eos # (Auto) (0-450) /uL Baso # (Auto) (0-100) /uL PT (10.1-12.7) SECONDS INR (0.9-1.3) APTT (26.4-36.2) SECONDS Sodium (137-145) mmol/L Potassium (3.4-5.1) mmol/L Chloride (98-107) mmol/L Carbon Dioxide (22-32) mmol/L BUN (7-17) mg/dL Creatinine (0.52-1.04) mg/dL Estimated GFR (>60) mL/min BUN/Creatinine Ratio (6-22) Glucose (80-110) mg/dL Calcium (8.4-10.2) mg/dL Total Bilirubin (0.2-1.3) mg/dL AST (14-36) IU/L ALT (<35) IU/L Alkaline Phosphatase (38-126) U/L Ammonia (9-30) umol/L Total Protein (6.3-8.2) g/dL Albumin (3.5-5.0) g/dL Globulin (1.7-4.1) g/dL Albumin/Globulin Ratio (1.0-2.8) Lipase 925 H (23-300) U/L Urine RBC 0-1/hpf (0-5/HPF) Urine WBC None seen (0-5/HPF) Ur Squamous Epith Cells 0-1 /hpf (0-5/HPF) Calcium Oxalate Crystal Moderate H Amorphous Sediment 1+ Urine Bacteria None seen (None) Urine Mucus 2+ H (Negative) Ur Culture Indicated? Cult not indicated Blood Type A Positive Antibody Screen Negative 10/10/21 Range/Units 18:28 WBC (4.5-11.0) X10^3/uL RBC (4.0-5.2) X10^6/uL Hgb (12.0-16.0) g/dL Hct (36-46) % MCV (80-100) fL MCH (26-34) PG MCHC (30-36) % RDW (11.6-14.8) % Plt Count (150-400) X10^3/uL Neut % (Auto) (50-75) % Lymph % (Auto) (25-40) % [place] % (Auto) (3-14) % Eos % (Auto) (2-4) % Baso % (Auto) (0-2) % Neut # (Auto) (5877-8666) /uL Lymph # (Auto) (6556-7196) /uL [place] # (Auto) (0-900) /uL Eos # (Auto) (0-450) /uL Baso # (Auto) (0-100) /uL PT (10.1-12.7) SECONDS INR (0.9-1.3) APTT (26.4-36.2) SECONDS Sodium (137-145) mmol/L Potassium (3.4-5.1) mmol/L Chloride (98-107) mmol/L Carbon Dioxide (22-32) mmol/L BUN (7-17) mg/dL Creatinine (0.52-1.04) mg/dL Estimated GFR (>60) mL/min BUN/Creatinine Ratio (6-22) Glucose (80-110) mg/dL Calcium (8.4-10.2) mg/dL Total Bilirubin (0.2-1.3) mg/dL AST (14-36) IU/L ALT (<35) IU/L Alkaline Phosphatase (38-126) U/L Ammonia < 9 L (9-30) umol/L Total Protein (6.3-8.2) g/dL Albumin (3.5-5.0) g/dL Globulin (1.7-4.1) g/dL Albumin/Globulin Ratio (1.0-2.8) Lipase (23-300) U/L Urine RBC (0-5/HPF) Urine WBC (0-5/HPF) Ur Squamous Epith Cells (0-5/HPF) Calcium Oxalate Crystal Amorphous Sediment Urine Bacteria (None) Urine Mucus (Negative) Ur Culture Indicated? Blood Type Antibody Screen Point of Care Testing Stool Occult Blood Positive Urine Dip Bedside Urine Glucose Negative Bedside Urine Bilirubin + 1 Bedside Urine Ketone - Negative Urine Specific [place] 1.020 Bedside Urine Occult Blood +/- Bedside Urine pH 6.0 Bedside Urine Protein +/- 15 Bedside Urine Urobilinogen +/- 1mg Bedside Urine Nitrite - Negative Bedside Urine Leukocytes - Negative Esterase Imaging Data CT scan - abdomen/pelvis: Radiologist's Impression: PROCEDURE:? CT ABDOMEN PELVIS W CON ? INDICATIONS:? GI Bleed ? TECHNIQUE:? After the administration of intravenous contrast, axial sections acquired from the lung bases to the pubic symphysis.? Coronal and sagittal reformats were performed.? For radiation dose reduction, the following was used:? automated exposure control, adjustment of mA and/or kV according to patient size.? ? COMPARISON:? [facility], CT, CT ABDOMEN PELVIS W CON, 09/29/2021, 0:41.? [facility], CT, ABDOMEN/PELVIS WITH CONTRAST, 05/19/2015, 20:10. ? FINDINGS:? Image quality:? Excellent.? ? Lung bases:? Mild bibasilar atelectasis.? Small hiatal hernia. Heart:? No significant findings. ? ABDOMEN: Liver:? Stable appearance of mild nodular liver contour and diffuse hypoattenuation. Gallbladder:? Status post cholecystectomy.? ? Biliary ducts:? No intrahepatic biliary ductal dilatation. Pancreas:? Mild peripancreatic stranding as before.? Redemonstration of a 4 mm calcification near the ampulla/proximal main pancreatic duct.? No significant pancreatic ductal dilatation.? Redemonstration of a 9 x 7 mm stone in the expected location of the distal common bile duct. Spleen:? Unremarkable.? ? Adrenal Glands:? Unremarkable.? ? Kidneys and Ureters:Kidneys are symmetric in size and enhancement, and there is no obstructive uropathy.? No perinephric inflammatory changes. Ureters are normal in course and caliber.? ? Stomach and Bowel:? Stomach, small bowel loops, and colon are unremarkable.? No definite evidence for abnormal contrast enhancement within the visualized bowel or evidence suggest active extravasation. Peritoneum:? No abnormal intraperitoneal fluid.? No free air.? ? Ventral Wall: ? No hernias.? Abdominal Nodes:? No retroperitoneal or mesenteric adenopathy by size criteria.? Vessels:? Aorta and inferior vena cava are normal in size.? ? PELVIS: Pelvic Organs:? Unremarkable.? ? Bladder:Urinary bladder thickness appears normal for degree of distention. No perivesicular inflammatory stranding. Pelvic Nodes: No enlarged lymph nodes.? Miscellaneous: No hernias are seen. ? ? ? Bones:No acute vertebral body compression fractures. Multilevel spondylitic changes throughout the imaged spine.? No suspicious osseous lesions. ? ? IMPRESSION:? ? 1. Relatively stable CT evaluation of the abdomen and pelvis with persistent calcifications noted in the expected location of the distal common bile duct and ampulla/proximal main pancreatic duct.? Minimal peripancreatic stranding may represent mild pancreatitis.? Recommend clinical and laboratory correlation.? No significant biliary ductal dilatation seen. ? 2. Stable appearance of cirrhotic changes of the liver and associated hepatic steatosis. ? 3. No definite abnormalities identified to explain patient's history of gastrointestinal bleeding. ? 4.? Status post cholecystectomy.? ? ? Dictated by: Kingston Eduardo M.D. on 10/10/2021 at 18:28 ? ? Approved by: Kingston Eduardo M.D. on 10/10/2021 at 18:38?? MDM Narrative Medical decision making narrative: Patient was evaluated today for abdominal pain and GI bleed. Patient reported having coffee-ground emesis and black tarry stools and some epigastric pain. H&H appears to be within adequate limits vital signs remained stable lipase was mildly elevated and CT should does show evidence of pancreatitis. She does have some gallstones that seem to be passing and do not seem to be obstructed at this point. No common bile duct dilation observed on the CT scan. I presented these findings to the patient and spoke about possibly being admitted. Patient is not interested in being admitted to the hospital at this time she has had pancreatitis in the past and will go home and monitor her changes and if anything changes she will return to the ED. patient will be discharged <Tiana Walton MD - Last Filed: 10/11/21 01:49> Lab Data Labs: Lab Results 10/10/21 10/10/21 10/10/21 Range/Units 16:15 16:15 16:15 WBC 6.6 (4.5-11.0) X10^3/uL RBC 3.85 L (4.0-5.2) X10^6/uL Hgb 12.8 (12.0-16.0) g/dL Hct 37.5 (36-46) % MCV 97.5 (80-100) fL MCH 33.3 (26-34) PG MCHC 34.2 (30-36) % RDW 15.3 H (11.6-14.8) % Plt Count 155 (150-400) X10^3/uL Neut % (Auto) 59.0 (50-75) % Lymph % (Auto) 24.1 L (25-40) % [place] % (Auto) 10.6 (3-14) % Eos % (Auto) 5.7 H (2-4) % Baso % (Auto) 0.6 (0-2) % Neut # (Auto) 3900 (8129-1855) /uL Lymph # (Auto) 1600 (0043-0343) /uL [place] # (Auto) 700 (0-900) /uL Eos # (Auto) 400 (0-450) /uL Baso # (Auto) 0 (0-100) /uL PT 15.1 H (10.1-12.7) SECONDS INR 1.3 (0.9-1.3) APTT 39 H (26.4-36.2) SECONDS Sodium 142 (137-145) mmol/L Potassium 3.8 (3.4-5.1) mmol/L Chloride 108 H (98-107) mmol/L Carbon Dioxide 25 (22-32) mmol/L BUN 25 H (7-17) mg/dL Creatinine 0.64 (0.52-1.04) mg/dL Estimated GFR > 60.0 (>60) mL/min BUN/Creatinine Ratio 39.1 H (6-22) Glucose 93 (80-110) mg/dL Calcium 10.2 (8.4-10.2) mg/dL Total Bilirubin 1.4 H (0.2-1.3) mg/dL AST 111 H (14-36) IU/L ALT 66 H (<35) IU/L Alkaline Phosphatase 78 (38-126) U/L Ammonia (9-30) umol/L Total Protein 8.9 H (6.3-8.2) g/dL Albumin 4.5 (3.5-5.0) g/dL Globulin 4.4 H (1.7-4.1) g/dL Albumin/Globulin Ratio 1.0 (1.0-2.8) Lipase (23-300) U/L Urine RBC (0-5/HPF) Urine WBC (0-5/HPF) Ur Squamous Epith Cells (0-5/HPF) Calcium Oxalate Crystal Amorphous Sediment Urine Bacteria (None) Urine Mucus (Negative) Ur Culture Indicated? Blood Type Antibody Screen 10/10/21 10/10/21 10/10/21 Range/Units 16:15 16:15 17:51 WBC (4.5-11.0) X10^3/uL RBC (4.0-5.2) X10^6/uL Hgb (12.0-16.0) g/dL Hct (36-46) % MCV (80-100) fL MCH (26-34) PG MCHC (30-36) % RDW (11.6-14.8) % Plt Count (150-400) X10^3/uL Neut % (Auto) (50-75) % Lymph % (Auto) (25-40) % [place] % (Auto) (3-14) % Eos % (Auto) (2-4) % Baso % (Auto) (0-2) % Neut # (Auto) (3961-0314) /uL Lymph # (Auto) (8328-5983) /uL [place] # (Auto) (0-900) /uL Eos # (Auto) (0-450) /uL Baso # (Auto) (0-100) /uL PT (10.1-12.7) SECONDS INR (0.9-1.3) APTT (26.4-36.2) SECONDS Sodium (137-145) mmol/L Potassium (3.4-5.1) mmol/L Chloride (98-107) mmol/L Carbon Dioxide (22-32) mmol/L BUN (7-17) mg/dL Creatinine (0.52-1.04) mg/dL Estimated GFR (>60) mL/min BUN/Creatinine Ratio (6-22) Glucose (80-110) mg/dL Calcium (8.4-10.2) mg/dL Total Bilirubin (0.2-1.3) mg/dL AST (14-36) IU/L ALT (<35) IU/L Alkaline Phosphatase (38-126) U/L Ammonia (9-30) umol/L Total Protein (6.3-8.2) g/dL Albumin (3.5-5.0) g/dL Globulin (1.7-4.1) g/dL Albumin/Globulin Ratio (1.0-2.8) Lipase 925 H (23-300) U/L Urine RBC 0-1/hpf (0-5/HPF) Urine WBC None seen (0-5/HPF) Ur Squamous Epith Cells 0-1 /hpf (0-5/HPF) Calcium Oxalate Crystal Moderate H Amorphous Sediment 1+ Urine Bacteria None seen (None) Urine Mucus 2+ H (Negative) Ur Culture Indicated? Cult not indicated Blood Type A Positive Antibody Screen Negative 10/10/21 Range/Units 18:28 WBC (4.5-11.0) X10^3/uL RBC (4.0-5.2) X10^6/uL Hgb (12.0-16.0) g/dL Hct (36-46) % MCV (80-100) fL MCH (26-34) PG MCHC (30-36) % RDW (11.6-14.8) % Plt Count (150-400) X10^3/uL Neut % (Auto) (50-75) % Lymph % (Auto) (25-40) % [place] % (Auto) (3-14) % Eos % (Auto) (2-4) % Baso % (Auto) (0-2) % Neut # (Auto) (0038-6629) /uL Lymph # (Auto) (2976-2806) /uL [place] # (Auto) (0-900) /uL Eos # (Auto) (0-450) /uL Baso # (Auto) (0-100) /uL PT (10.1-12.7) SECONDS INR (0.9-1.3) APTT (26.4-36.2) SECONDS Sodium (137-145) mmol/L Potassium (3.4-5.1) mmol/L Chloride (98-107) mmol/L Carbon Dioxide (22-32) mmol/L BUN (7-17) mg/dL Creatinine (0.52-1.04) mg/dL Estimated GFR (>60) mL/min BUN/Creatinine Ratio (6-22) Glucose (80-110) mg/dL Calcium (8.4-10.2) mg/dL Total Bilirubin (0.2-1.3) mg/dL AST (14-36) IU/L ALT (<35) IU/L Alkaline Phosphatase (38-126) U/L Ammonia < 9 L (9-30) umol/L Total Protein (6.3-8.2) g/dL Albumin (3.5-5.0) g/dL Globulin (1.7-4.1) g/dL Albumin/Globulin Ratio (1.0-2.8) Lipase (23-300) U/L Urine RBC (0-5/HPF) Urine WBC (0-5/HPF) Ur Squamous Epith Cells (0-5/HPF) Calcium Oxalate Crystal Amorphous Sediment Urine Bacteria (None) Urine Mucus (Negative) Ur Culture Indicated? Blood Type Antibody Screen Point of Care Testing Stool Occult Blood Positive Urine Dip Bedside Urine Glucose Negative Bedside Urine Bilirubin + 1 Bedside Urine Ketone - Negative Urine Specific [place] 1.020 Bedside Urine Occult Blood +/- Bedside Urine pH 6.0 Bedside Urine Protein +/- 15 Bedside Urine Urobilinogen +/- 1mg Bedside Urine Nitrite - Negative Bedside Urine Leukocytes - Negative Esterase Discharge Plan Departure Patient Disposition: Home Clinical Impression: Acute GI bleeding, Melena, Pancreatitis Instructions: DI for Pancreatitis, Gastrointestinal Bleeding Activity Restrictions/Additional Instructions: Today you were evaluated and treated for your abdominal pain and bleeding. With the findings consistent with coffee-ground emesis and black tarry stools it is likely that the bleeding is coming from the upper part of your GI system. As result I would ensure that you are taking a PPI daily like Pepcid. Your pancreatitis although mild he should limit your p.o. intake and just stay hydrated today and monitor your pain. If you start to have any worsening symptoms or your bleeding becomes more severe you can return to the ED immediately for re-evaluation. I appreciate the opportunity to care for you today. Prescriptions: No Action lorazepam 1 mg tablet 1 mg PO DAILY Qty: 30 5RF nortriptyline 25 mg capsule 25 mg PO BEDTIME PRN (Reason: insomnia) Qty: 30 5RF levothyroxine 100 mcg capsule 100 mcg PO DAILY 0RF Xifaxan 550 MG tablet 550 mg PO BID Qty: 60 11RF liothyronine [Cytomel] 5 mcg tablet 10 mcg PO DAILY 0RF Shingrix (PF) 50 mcg/0.5 mL suspension for reconstitution 0.5 ml IM ONCE Qty: 1 0RF Rx Instructions: as a single dose gabapentin 300 mg capsule 300 mg PO QID Qty: 360 3RF Rx Instructions: Take 1 cap up to 4x/day for pain. ferrous sulfate 324 mg (65 mg iron) tablet,delayed release (DR/EC) 324 mg PO DAILY 0RF nadolol 20 MG tablet 30 mg PO DAILY 0RF lactulose 10 gram/15 mL solution 15 - 30 ml PO 1-2XD 0RF Label Comments: take 15 TO 30ML by mouth one to two times a day furosemide [Lasix] 20 mg tablet 20 mg PO DAILY PRN0RF spironolactone 100 mg tablet 100 mg PO DAILY PRN0RF Referrals: Divina Lopes ARNP [Primary Care Provider] - <Tiana Walton MD - Last Filed: 10/11/21 01:49> Cosign ED Attending Cosignature Attestation: I was immediately available in the department for consultation throughout this patient's visit. I agree with documentation as above. Tiana Walton MD
[2021-10-10 17:00] LABS: PTT Partial Thromboplastin Tim 39 SECONDS (26.4-36.2)
[2021-10-10 17:01] LABS: Alanine Aminotransferase 66 IU/L (<35); Albumin 4.5 g/dL (3.5-5.0); Alkaline Phosphatase 78 U/L (38-126); Aspartate Aminotransferase 111 IU/L (14-36); BUN Creatinine Ratio 39.1 (6-22); Bilirubin Total 1.4 mg/dL (0.2-1.3); Blood Urea Nitrogen 25 mg/dL (7-17); Calcium 10.2 mg/dL (8.4-10.2); Carbon Dioxide 25 mmol/L (22-32); Chloride 108 mmol/L (98-107); Estimated Glomerular Filt Rate > 60.0 mL/min (>60); Globulin 4.4 g/dL (1.7-4.1); Glucose 93 mg/dL (80-110); HEMOLYSIS 39 (0-50); Potassium 3.8 mmol/L (3.4-5.1); Sodium 142 mmol/L (137-145); Total Protein 8.9 g/dL (6.3-8.2)
[2021-10-10] MEDS: SODIUM CHLORIDE 0.9% 1,000 ML 1000 ML IV (17:04)
[2021-10-10] MEDS: ONDANSETRON 4 MG/2 ML INJ IV (17:05)
[2021-10-10] MEDS: PANTOPRAZOLE 40 MG VIAL IV (17:05)
[2021-10-10 18:15] LABS: Amorphous Sediment Urine 1+; Bacteria Urine None Seen; Calcium Oxalate Crystals Urine Moderate; Culture Indicated Urine Cult Not Indicated; Mucus Urine 2+ (Negative); Squamous Epithelial Cell Urine 0-1 /HPF (0-5/HPF); WBC Urine None Seen (0-5/HPF)
[2021-10-10 18:16] LABS: RBC Urine 0-1/HPF (0-5/HPF)
[2021-10-10 18:47] LABS: Ammonia (NH3) < 9 umol/L (9-30)
[2021-10-10 19:06] LABS: Lipase 925 U/L (23-300)
== END 2021-10-10 20:10 | disposition home or self-care (01) ==
PROVIDERS: Emergency Medicine; Emergency Provider Physician Assistant; PCP Nurse Practitioner
DX: K92.2 Gastrointestinal hemorrhage, unspecified (principal); K85.90 Acute pancreatitis without necrosis or infection, unspecified; K92.1 Melena; K92.0 Hematemesis; I10 Essential (primary) hypertension
CPT/HCPCS: 36415; 74177; 80053; 81003; 81015; 82140; 82272; 83690; 85025; 85610; 85730; 86850; 86900; 86901; 93005; 96374; 96375; 99284; C9113; J2405; Q9967

== ENCOUNTER → 2021-10-25 13:44 | Outpatient (CLI) | payer OTHER, MEDICAID, SELFPAY ==
[2021-10-25 15:26] LABS: Free T3, Triiodothyronine Free 2.57 pg/mL (2.77-5.27)
[2021-10-25 15:43] LABS: Thyroid Stimulating Hormone 8.33 uIU/mL (0.47-4.68)
[2021-10-25 16:09] LABS: Free T4, Direct Thyroxine 1.05 ng/dL (0.78-2.19)
== END ==
PROVIDERS: PCP Nurse Practitioner; Referring Provider Internal Medicine Endocrinology, Diabetes & Metabolism; Visit Provider Internal Medicine Endocrinology, Diabetes & Metabolism
DX: E03.8 Other specified hypothyroidism (principal)
CPT/HCPCS: 36415; 84439; 84443; 84481

== ENCOUNTER 2021-11-02 00:59 | Emergency (ER) | payer OTHER, MEDICAID, SELFPAY ==
[2021-11-02 01:04] VITALS: BP 137/83; PULSE 102; O2SAT 96
[2021-11-02 01:07] VITALS: BP 137/83; PULSE 93; RESP 20; TEMP 36.6; O2SAT 97; BMI 24.9
[2021-11-02 01:28] VITALS: PULSE 83; O2SAT 90
[2021-11-02 01:31] VITALS: BP 113/65
--- NOTE | 2021-11-02 01:51 | ED.FALL ---
HPI - Fall General Chief Complaint: Fall Stated Complaint: Fall with wine and Rib pain, chronic rectal bleed Time Seen by Provider: 11/02/21 01:21 Source: patient and EMS Mode of arrival: EMS History of Present Illness HPI Narrative: Patient is a 61-year-old female. No history of alcohol abuse. EMS was called to the house this evening after the patient was found on the ground. Was an unwitnessed fall. Here in the emergency department the patient states that she has been drinking and she did fall. She states she did hit her head. She stated that she was having some right shoulder discomfort otherwise no other complaints. Stated complaint states that she was having rib pain but she denied that to me. She also denied any rectal bleeding. Related Data Home Medications Medication Instructions Recorded Confirmed nadolol 20 mg tablet 30 mg PO DAILY 04/23/18 10/14/21 liothyronine 5 mcg tablet (Cytomel) 10 mcg PO DAILY tab 05/31/18 10/14/21 lactulose 10 gram/15 mL oral 15 - 30 ml PO 1-2XD 12/27/18 10/14/21 solution levothyroxine 100 mcg capsule 100 mcg PO DAILY 12/19/19 10/14/21 ferrous sulfate 324 mg (65 mg 324 mg PO DAILY 10/09/21 10/14/21 iron) tablet,delayed release Previous Rx's Medication Instructions Recorded rifaximin 550 mg tablet (Xifaxan) 550 mg PO BID #60 tab 09/16/16 varicella-zoster glycoE [id number] 0.5 ml IM ONCE #1 ea 03/12/21 adj(PF) 50 mcg/0.5 mL IM susp, kit (Shingrix (PF)) gabapentin 300 mg capsule 300 mg PO QID #360 cap 04/25/21 lorazepam 1 mg tablet 1 mg PO DAILY #30 tab 08/16/21 nortriptyline 25 mg capsule 25 mg PO BEDTIME PRN #30 cap 08/16/21 Allergies Allergy/AdvReac Type Severity Reaction Status Date / Time No Known Drug Allergies Allergy Verified 10/14/21 14:35 Review of Systems Constitutional Comments: Denied headache Cardiovascular Comments: Denied chest pain Respiratory Comments: Denied shortness of breath Gastrointestinal Comments: Denied abdominal pain Musculoskeletal Comments: Right shoulder pain Psychiatric Comments: Intoxicated Hematologic/Lymphatic On Anticoagulants: No Patient History Medical History Anxiety Ascites due to alcoholic cirrhosis Cardiac arrhythmia Chicken pox Cirrhosis (2012) Coagulation disorder (2012) Depression Eczema (2014) EV (esophageal varices) (10/2015) GERD (gastroesophageal reflux disease) GI bleeding (2015) Hemorrhoids, internal History of alcohol abuse (12/27/15) History of blood transfusion (10/2015) History of heavy periods (2014) Hypercalcemia Hypertension Hypothyroidism Intermittent palpitations (04/2019) Measles Mumps Nonalcoholic fatty liver disease Ovarian cyst (2012) Painful menstrual periods (2012) Pancreatitis Portal hypertensive gastropathy (05/2015) Psoriasis (2014) PTSD (post-traumatic stress disorder) (1999) SBO (small bowel obstruction) Shortness of breath Weight gain Surgical History H/O bilateral oophorectomy History of appendectomy History of cholecystectomy History of esophagogastroduodenoscopy (EGD) (01/2009) History of esophagogastroduodenoscopy (EGD) (05/2015) History of inguinal hernia repair Status post appendectomy Status post colonoscopy (01/2009) Status post hernia repair Status post hysteroscopy (06/17/11) Status post laparoscopic supracervical hysterectomy (08/25/16) Family History Grandfather Heart disease [place] (myocardial infarction) Grandmother Alcoholism Father No problems noted. Mother No problems noted. Grandfather Heart disease Grandmother Colon cancer Brother No problems noted. Social History Smoking Status: Never smoker alcohol intake: current Smoking Status: Never smoker alcohol intake frequency: a few times a month Substance Use Type: does not use Exam Initial Vital Signs Initial Vital Signs: Vital Signs Temperature 97.8 F 11/02/21 01:07 Pulse Rate 93 H 11/02/21 01:07 Respiratory Rate 20 11/02/21 01:07 Blood Pressure 137/83 11/02/21 01:07 Pulse Oximetry 97 11/02/21 01:07 Const Other: Shuffled HENMT Head: normal to inspection and normocephalic Chest Chest: normal inspection of the chest Resp Effort & Inspection: normal respiratory effort Auscultation: clear to auscultation bilaterally Cardio Rate: regular rate Rhythm: regular rhythm GI Inspection: normal to inspection Palpation: soft and No tender Skin General: no rashes or lesions noted Neuro Other: Patient knows she is in the hospital. She did state she has been drinking this evening and that she did fall. Extrem Other: Patient expressed right shoulder pain but has full range of motion of her shoulders. No apparent discomfort with movement of the elbows wrist. Her pelvis and knees and lower extremities unremarkable. Psych Appearance: disheveled Course Orders Ordered: ED Orders 11/02/21 01:52 CT cervical spine wo con Stat CT head/brain wo con Stat Vital Signs Vital signs: Vital Signs - 8 hr 11/02/21 01:07 Temperature 97.8 F Pulse Rate 93 H Respiratory Rate 20 Blood Pressure 137/83 Pulse Oximetry 97 MDM - Fall Imaging Data CT scan - head: Radiologist's Impression: No acute intracranial pathology CT - cervical spine: Radiologist's Impression: No acute fractures MDM Narrative Medical decision making narrative: Head CT and cervical spine CT are unremarkable. No other injuries found on exam. Patient is intoxicated. Patient was ambulatory to the bathroom with some difficulty. Patient will be discharged home with family. Discharge Plan Departure Patient Disposition: Home Clinical Impression: Alcohol intoxication Instructions: How to Prevent Falls Activity Restrictions/Additional Instructions: No drive for the next 24 hours or in the future if you are drinking alcohol. Your workup here in the emergency department did not show any signs of fractures or head injuries. Return to the emergency department for any new or worsening symptoms. Prescriptions: No Action lorazepam 1 mg tablet 1 mg PO DAILY Qty: 30 5RF nortriptyline 25 mg capsule 25 mg PO BEDTIME PRN (Reason: insomnia) Qty: 30 5RF levothyroxine 100 mcg capsule 100 mcg PO DAILY 0RF Xifaxan 550 MG tablet 550 mg PO BID Qty: 60 11RF liothyronine [Cytomel] 5 mcg tablet 10 mcg PO DAILY 0RF Shingrix (PF) 50 mcg/0.5 mL suspension for reconstitution 0.5 ml IM ONCE Qty: 1 0RF Rx Instructions: as a single dose gabapentin 300 mg capsule 300 mg PO QID Qty: 360 3RF Rx Instructions: Take 1 cap up to 4x/day for pain. ferrous sulfate 324 mg (65 mg iron) tablet,delayed release (DR/EC) 324 mg PO DAILY 0RF nadolol 20 MG tablet 30 mg PO DAILY 0RF lactulose 10 gram/15 mL solution 15 - 30 ml PO 1-2XD 0RF Label Comments: take 15 TO 30ML by mouth one to two times a day Referrals: Divina Lopes ARNP [Primary Care Provider] -
--- NOTE | 2021-11-02 01:52 | DI.CT.S_ITS ---
PROCEDURE: CT HEAD/BRAIN WO CON INDICATIONS: fall with head injury TECHNIQUE: Noncontrast 4.5 mm thick angled axial sections acquired from the foramen magnum to the vertex, with coronal and sagittal reformats. For radiation dose reduction, the following was used: automated exposure control, adjustment of mA and/or kV according to patient size. COMPARISON: [facility], CT, CT HEAD/BRAIN WO CON, 12/27/2018, 8:55. FINDINGS: Image quality: Excellent. CSF spaces: Basal cisterns are patent. No extra-axial fluid collections. Ventricles are normal in size and shape. Brain: No midline shift. No intracranial masses or hemorrhage. Rich-white matter interface is normal. Skull and face: Calvarium and visualized facial bones are intact, without suspicious lesions. Sinuses: Visualized sinuses and mastoids are clear. IMPRESSION: Unremarkable CT of the brain Note: Final report is concordant with preliminary interpretation by [facility] [employer] Approved by: Bonilla Vasquez M.D. on 11/02/2021 at 6:15
--- NOTE | 2021-11-02 01:52 | DI.CT.S_ITS ---
PROCEDURE: CT CERVICAL SPINE WO CON INDICATIONS: ETOH and fall TECHNIQUE: Noncontrast 3 mm thick sections acquired from the skull base to the T4 level. Sagittal and coronal reformats were then constructed. For radiation dose reduction, the following was used: automated exposure control, adjustment of mA and/or kV according to patient size. COMPARISON: [facility], CT, CT CERVICAL SPINE WO CON, 12/27/2018, 8:55. FINDINGS: Image quality: Excellent. Bones: No fractures or dislocations. Visualized superior ribs are intact. Soft tissues: Prevertebral soft tissues are normal in thickness. No paravertebral hematomas. No apical pneumothoraces. IMPRESSION: Unremarkable CT cervical spine. No fracture or malalignment. Note: Final report is concordant with preliminary interpretation by [facility] Approved by: Bonilla Vasquez M.D. on 11/02/2021 at 6:12
[2021-11-02 02:30] VITALS: PULSE 82; O2SAT 92
[2021-11-02 05:37] VITALS: BP 142/75; PULSE 98; O2SAT 93
== END 2021-11-02 05:44 | disposition home or self-care (01) ==
PROVIDERS: Emergency Provider Emergency Medicine; PCP Nurse Practitioner
DX: F10.129 Alcohol abuse with intoxication, unspecified (principal); W19.XXXA Unspecified fall, initial encounter; Y92.009 Unspecified place in unspecified non-institutional (private) residence as the place of occurrence of the external cause
CPT/HCPCS: 70450; 72125; 99283; 99284

== ENCOUNTER → 2021-11-06 17:27 | Outpatient (CLI) | payer OTHER, MEDICAID, SELFPAY ==
--- NOTE | 2021-11-06 17:30 | DI.RAD.S_ITS ---
PROCEDURE: XR WRIST LT MIN 3V INDICATIONS: fall, left forearm pain TECHNIQUE: 4 views of the wrist were acquired. COMPARISON: None. FINDINGS: Bones: Comminuted, intra-articular fracture of the distal radius. Scaphoid view: Scaphoid is intact. Soft tissues: No suspicious soft tissue calcifications. IMPRESSION: Distal radius fracture. Dictated by: Eladia Baker MD, PhD on 11/07/2021 at 9:26 Approved by: Eladia Baker MD, PhD on 11/07/2021 at 9:27
--- NOTE | 2021-11-06 17:30 | DI.RAD.S_ITS ---
PROCEDURE: XR FOREARM LT 2V INDICATIONS: fall, left forearm pain TECHNIQUE: 2 views of the forearm were acquired. COMPARISON: None. FINDINGS: Bones: Comminuted fracture of the distal radius which extends into the radiocarpal joint. Soft tissues: No suspicious soft tissue calcifications or masses. IMPRESSION: Comminuted, intra-articular distal radius fracture. Dictated by: Eladia aBker MD, PhD on 11/07/2021 at 9:25 Approved by: Eladia Baker MD, PhD on 11/07/2021 at 9:26
== END ==
PROVIDERS: PCP Nurse Practitioner; Referring Provider Nurse Practitioner Family; Visit Provider Nurse Practitioner Family
DX: S52.572A Other intraarticular fracture of lower end of left radius, initial encounter for closed fracture (principal); M79.602 Pain in left arm; W19.XXXA Unspecified fall, initial encounter
CPT/HCPCS: 73090; 73110

== ENCOUNTER → 2021-11-13 14:14 | Outpatient (CLI) | payer OTHER, MEDICAID, SELFPAY ==
--- NOTE | 2021-11-13 | DI.CT.S_ITS ---
PROCEDURE: CT UE LT WO CON INDICATIONS: EVALUATE PUNCH FRACTURE TECHNIQUE: Noncontrast 1 mm axial sections acquired through the carpal bones, with coronal and sagittal reformats. COMPARISON: [facility], CR, XR WRIST LT MIN 3V, 11/06/2021, 17:21. FINDINGS: Image quality: The wrist is mildly rotated within the gantry. Bones: Comminuted fracture of the distal radius, which extends to the articular surface. Mild to moderate osteophytosis and joint space loss of the 1st carpometacarpal articulation. 4.7 mm exostosis arising from the 2nd metatarsal head. 4.1 mm sclerotic focus in the trapezoid, compatible with a bone island. Soft tissues: Diffuse edema about the fracture site. Calcific densities in the TFCC region. IMPRESSION: Comminuted fracture of the distal radius as detailed above Dictated by: Osvaldo Thakkar M.D. on 11/13/2021 at 15:15 Approved by: Osvaldo Thakkar M.D. on 11/13/2021 at 15:22
== END ==
PROVIDERS: PCP Nurse Practitioner; Referring Provider Orthopaedic Surgery; Visit Provider Orthopaedic Surgery
DX: S52.572A Other intraarticular fracture of lower end of left radius, initial encounter for closed fracture (principal); X58.XXXA Exposure to other specified factors, initial encounter
CPT/HCPCS: 73200

== ENCOUNTER 2021-11-24 16:15 | Emergency (ER) | payer OTHER, MEDICAID, SELFPAY ==
[2021-11-24] VITALS (9 sets, daily range): BP systolic 99–116; BP diastolic 61–77; PULSE 80–85; RESP 20–25; TEMP 37.3–37.8; O2SAT 94–97
--- NOTE | 2021-11-24 16:29 | DI.RAD.S_ITS ---
PROCEDURE: XR CHEST 1V INDICATIONS: suspected sepsis TECHNIQUE: One view of the chest was acquired. COMPARISON: [facility], CR, XR CHEST 1 VIEW, 07/18/2021, 17:07. [facility], CR, XR CHEST 1V, 12/05/2020, 16:53. FINDINGS: Surgical changes and devices: Cholecystectomy clips are faintly seen. Lungs and pleura: Lungs are clear. No pleural effusions or pneumothorax. Mediastinum: Mediastinal contours appear normal. Heart size is normal. Bones and chest wall: No suspicious bony lesions. Overlying soft tissues appear unremarkable. IMPRESSION: Negative for focal infiltrate. Dictated by: Rufino Palmer M.D. on 11/24/2021 at 15:57 Approved by: Rufino Palmer M.D. on 11/24/2021 at 15:57
[2021-11-24 16:56] LABS: Add Manual Diff / Slide Review NO; Basophils Absolute Auto 0 /uL (0-100); Basophils Percent Auto 0.3 % (0-2); Eosinophils Absolute Auto 0 /uL (0-450); Hematocrit 36.9 % (36-46); Hemoglobin 12.5 g/dL (12.0-16.0); Lymphocytes Absolute Auto 300 /uL (1100-4500); Lymphocytes Percent Auto 6.1 % (25-40); Mean Corpuscular HGB Conc 33.9 % (30-36); Mean Corpuscular Hemoglobin 31.2 PG (26-34); Mean Corpuscular Volume 92.2 fL (80-100); Monocytes Absolute Auto 700 /uL (0-900); Monocytes Percent Auto 12.6 % (3-14); Neutrophils Absolute Auto 4200 /uL (1500-7000); Platelet Count 171 X10^3/uL (150-400); Red Cell Distribution Width 15.1 % (11.6-14.8); White Blood Cell Count 5.2 X10^3/uL (4.5-11.0)
[2021-11-24 17:03] LABS: Lactate (Lactic Acid) 1.9 mmol/L (0.7-2.1)
[2021-11-24 17:04] LABS: Alanine Aminotransferase 66 IU/L (<35); Albumin 4.3 g/dL (3.5-5.0); Albumin Globulin Ratio 0.9 (1.0-2.8); Alkaline Phosphatase 132 U/L (38-126); Aspartate Aminotransferase 137 IU/L (14-36); BUN Creatinine Ratio 17.3 (6-22); Blood Urea Nitrogen 14 mg/dL (7-17); Calcium 9.7 mg/dL (8.4-10.2); Carbon Dioxide 22 mmol/L (22-32); Chloride 102 mmol/L (98-107); Estimated Glomerular Filt Rate > 60 mL/min (>60); Globulin 4.7 g/dL (1.7-4.1); Glucose 123 mg/dL (80-110); HEMOLYSIS < 15 (0-50); Lipase 1432 U/L (23-300); Potassium 4.1 mmol/L (3.4-5.1); Sodium 133 mmol/L (137-145)
[2021-11-24 17:06] LABS: COVID19 -Nasal RAPID Negative (Negative)
[2021-11-24 17:20] LABS: Procalcitonin 0.33 ng/mL (<0.5)
--- NOTE | 2021-11-24 18:22 | DI.CT.S_ITS ---
PROCEDURE: CT CHEST ABD PEL W CON INDICATIONS: pancreatitis, banding esophageal varies TECHNIQUE: After the administration of intravenous contrast, axial sections acquired from the supraclavicular neck to the pubic symphysis. Coronal and sagittal reformats were performed. For radiation dose reduction, the following was used: automated exposure control, adjustment of mA and/or kV according to patient size. COMPARISON: [facility], CT, CT ABDOMEN PELVIS W CON, 10/10/2021, 17:18. [facility], CT, CT CHEST ABD PEL W CON, 04/23/2018, 6:06. FINDINGS: Image quality: Excellent. CHEST: Lower Neck: No enlarged lymph nodes. Axillae: No enlarged lymph nodes. Chest Wall: Prior left-sided rib fractures. Lungs and Airways: Mild atelectasis in the left lung. No consolidation. No mass or significant pulmonary nodules. Airways are clear. Pleura: No pneumothorax or pleural effusions. Heart: Heart size is normal. No pericardial effusion. Thoracic Vessels: The aorta and pulmonary arteries demonstrate normal size. Mediastinum and Kita: No enlarged lymph nodes. No pneumomediastinum. Esophagus: Thickening of the distal esophagus, (2/41). ABDOMEN: Liver: Nodular contour. Well-circumscribed hypodensity in the right lobe of the liver, (2/52), unchanged. Gallbladder: Absent. Biliary ducts: CBD measures 1.1 cm and is mildly prominent. Pancreas: Hypoenhancement in the head of the pancreas, (2/64). Overall this is similar to the recent CT. Small calcifications in the head of the pancreas. The pancreas is atrophic appearing. Spleen: Splenomegaly measuring 15.7 cm. Adrenal Glands: No nodule. Kidneys and Ureters: No hydronephrosis. Suspect small cyst in the left kidney. Stomach and Bowel: Stomach, small bowel loops, and colon are unremarkable. The appendix is not definitely seen. Peritoneum: No abnormal intraperitoneal fluid. No free air. Ventral Wall: No hernia. Abdominal Nodes: No retroperitoneal or mesenteric adenopathy by size criteria. Vessels: Aorta and inferior vena cava are normal in size. Small paraesophageal varices. PELVIS: Pelvic Organs: Uterus is absent. Bladder: No stones. Pelvic Nodes: No enlarged lymph nodes. Miscellaneous: No inguinal hernias are seen. Bones: No suspicious lesion. IMPRESSION: 1. New thickening of the distal esophagus. The clinical significance is uncertain. This could be due to recent esophageal banding as reported. It is difficult to exclude esophageal. 2. No pleural effusion. No retrocrural fluid. 3. Findings of chronic calcific pancreatitis. 4. Nodular liver suggesting cirrhosis. Splenomegaly. Dictated by: Andreas Hackett M.D. on 11/24/2021 at 19:20 Approved by: Andreas Hackett M.D. on 11/24/2021 at 19:34
--- NOTE | 2021-11-24 18:24 | ED.ABDPAIN ---
HPI - Abdominal Pain <Josep Dsouza PA-C - Last Filed: 11/24/21 19:55> General Chief Complaint: Fever Stated Complaint: Endo Thursday/Fever/Chills Time Seen by Provider: 11/24/21 18:14 Source: patient Mode of arrival: Ambulatory History of Present Illness HPI narrative: Patient is a 61-year-old female who presents to the ED with epigastric pain fever body aches and chills that started today. She had an upper endoscopy done on Thursday which was 2 days ago and had a couple of varicosities banded. She has a history of esophageal varices, alcoholism, cirrhosis of the liver. She has some nausea no vomiting last bowel movement was normal denies any black tarry or bloody stools. Patient denies any chest pain, shortness of breath. No recent trauma or fall reported. Related Data Home Medications Medication Instructions Recorded Confirmed nadolol 20 mg tablet 30 mg PO DAILY 04/23/18 11/06/21 liothyronine 5 mcg tablet (Cytomel) 10 mcg PO DAILY tab 05/31/18 11/06/21 lactulose 10 gram/15 mL oral 15 - 30 ml PO 1-2XD 12/27/18 11/06/21 solution levothyroxine 100 mcg capsule 100 mcg PO DAILY 12/19/19 11/06/21 ferrous sulfate 324 mg (65 mg 324 mg PO DAILY 10/09/21 11/06/21 iron) tablet,delayed release Previous Rx's Medication Instructions Recorded rifaximin 550 mg tablet (Xifaxan) 550 mg PO BID #60 tab 09/16/16 varicella-zoster glycoE [id number] 0.5 ml IM ONCE #1 ea 03/12/21 adj(PF) 50 mcg/0.5 mL IM susp, kit (Shingrix (PF)) gabapentin 300 mg capsule 300 mg PO QID #360 cap 04/25/21 lorazepam 1 mg tablet 1 mg PO DAILY #30 tab 08/16/21 nortriptyline 25 mg capsule 25 mg PO BEDTIME PRN #30 cap 08/16/21 naltrexone microspheres 380 mg 380 mg IM QMONTH #3 ea 11/14/21 intramuscular suspension,extended release tramadol 50 mg tablet 50 mg PO QID PRN #40 tab 11/14/21 Allergies Allergy/AdvReac Type Severity Reaction Status Date / Time No Known Drug Allergies Allergy Verified 11/12/21 13:01 Review of Systems <Josep Dsouza PA-C - Last Filed: 11/24/21 19:55> Review of Systems ROS Unobtainable: All systems reviewed & are unremarkable except as noted in HPI and below Constitutional Constitutional: Denies chills, Denies fatigue, Reports fever(s), Denies frequent falls, Denies lethargy and Denies weakness Eyes Eyes: Denies change in vision, Denies eye discharge, Denies irritation and Denies loss of vision ENT Ears, Nose, Mouth, and Throat: Denies change in voice, Denies dizziness, Denies neck pain, Denies sore throat and Denies throat swelling Cardiovascular Cardiovascular: Denies chest pain, Denies irregular heart rhythm, Denies lightheadedness, Denies palpitations, Denies dyspnea, Denies dyspnea on exertion and Denies orthopnea Respiratory Respiratory: Denies cough, Denies dyspnea, Denies dyspnea on exertion and Denies wheezing Gastrointestinal Gastrointestinal: Reports as per HPI, Reports abdominal pain, Denies change in bowel habits, Denies diarrhea, Denies nausea and Denies vomiting Genitourinary Genitourinary: Denies hematuria, Denies flank pain, Denies urinary incontinence and Denies urinary urgency Musculoskeletal Musculoskeletal: Denies back pain, Denies muscle weakness, Denies neck pain, Denies numbness and Denies tingling Integumentary/Breasts Skin/Breast: Denies pruritus, Denies erythema, Denies rash and Denies wounds Neurologic Neurologic: Denies behavioral changes, Denies confusion, Denies dizziness, Denies frequent falls, Denies loss of vision, Denies numbness, Denies tingling and Denies weakness Psychiatric Psychiatric: Denies anxiety, Denies behavioral changes, Denies confusion, Denies depression, Denies homicidal ideation and Denies suicidal ideation Endocrine Endocrine: Denies fatigue, Denies flushing and Denies palpitations Hematologic/Lymphatic Hematologic/Lymphatic: Denies easy bruising Allergic/Immunologic Allergic/Immunologic: Denies urticaria, Denies throat swelling and Denies wheezing Patient History <Josep Dsouza PA-C - Last Filed: 11/24/21 19:55> Medical History Alcohol use disorder, severe, in early remission Anxiety Ascites due to alcoholic cirrhosis Cardiac arrhythmia Chicken pox Cirrhosis (2012) Coagulation disorder (2012) Depression Eczema (2014) EV (esophageal varices) (10/2015) GERD (gastroesophageal reflux disease) GI bleeding (2015) Hemorrhoids, internal History of alcohol abuse (12/27/15) History of blood transfusion (10/2015) History of heavy periods (2014) Hypercalcemia Hypertension Hypothyroidism Intermittent palpitations (04/2019) Measles Mumps Nonalcoholic fatty liver disease Ovarian cyst (2012) Painful menstrual periods (2012) Pancreatitis Portal hypertensive gastropathy (05/2015) Psoriasis (2014) PTSD (post-traumatic stress disorder) (1999) SBO (small bowel obstruction) Shortness of breath Weight gain Surgical History H/O bilateral oophorectomy History of appendectomy History of cholecystectomy History of esophagogastroduodenoscopy (EGD) (01/2009) History of esophagogastroduodenoscopy (EGD) (05/2015) History of inguinal hernia repair Status post appendectomy Status post colonoscopy (01/2009) Status post hernia repair Status post hysteroscopy (06/17/11) Status post laparoscopic supracervical hysterectomy (08/25/16) Family History Grandfather Heart disease [place] (myocardial infarction) Grandmother Alcoholism Father No problems noted. Mother No problems noted. Grandfather Heart disease Grandmother Colon cancer Brother No problems noted. Social History Smoking Status: Never smoker alcohol intake: current Smoking Status: Never smoker alcohol intake frequency: a few times a month Substance Use Type: does not use Exam <Josep Dsouza PA-C - Last Filed: 11/24/21 19:55> Initial Vital Signs Initial Vital Signs: Vital Signs Temperature 99.3 F 11/24/21 16:26 Pulse Rate 83 11/24/21 16:26 Respiratory Rate 20 11/24/21 16:26 Blood Pressure 116/77 11/24/21 16:26 Pulse Oximetry 96 11/24/21 16:26 Const General: cooperative, healthy appearing and comfortable Nutritional Appearance: average body habitus HENMT Head: normal to inspection, normocephalic and atraumatic Ears: hearing grossly normal bilaterally and external ears normal Nose: external nose normal Face and sinus: normal facial exam Eyes General: Yes appearance normal, both eyes and all related structures Pupils: PERRL Resp Effort & Inspection: normal respiratory effort and able to speak in complete sentences Auscultation: clear to auscultation bilaterally Cardio Palpation: normal PMI Rate: regular rate Rhythm: regular rhythm Heart Sounds: S1 normal and S2 normal GI Inspection: normal to inspection Palpation: soft and no hepatosplenomegaly Percussion: normal to percussion Auscultation: normal bowel sounds Skin General: no rashes or lesions noted Wounds: no wounds Neuro General: patient alert, patient awake and patient oriented x3 Psych Appearance: grossly normal <Tiana Walton MD - Last Filed: 11/25/21 03:53> Initial Vital Signs Initial Vital Signs: Vital Signs Temperature 99.3 F 11/24/21 16:26 Pulse Rate 83 11/24/21 16:26 Respiratory Rate 20 11/24/21 16:26 Blood Pressure 116/77 11/24/21 16:26 Pulse Oximetry 96 11/24/21 16:26 Course <Josep Dsouza PA-C - Last Filed: 11/24/21 19:55> Orders Ordered: Discontinued Medications Sodium Chloride (Normal Saline 0.9%) 1,000 mls @ 1,000 mls/hr IV BOLUS ONE Stop: 11/24/21 17:28 Last Infusion: 11/24/21 20:07 Dose: 0 mls/hr Documented by: Admin: 11/24/21 18:56 Dose: 1,000 mls/hr Documented by: CHINO Vital Signs Vital signs: Vital Signs - 8 hr 11/24/21 20:00 11/24/21 20:10 Temperature 99.1 F Pulse Rate 81 Respiratory Rate 24 Blood Pressure 101/68 Pulse Oximetry 94 <Tiana Walton MD - Last Filed: 11/25/21 03:53> Orders Ordered: Discontinued Medications Sodium Chloride (Normal Saline 0.9%) 1,000 mls @ 1,000 mls/hr IV BOLUS ONE Stop: 11/24/21 17:28 Last Infusion: 11/24/21 20:07 Dose: 0 mls/hr Documented by: Admin: 11/24/21 18:56 Dose: 1,000 mls/hr Documented by: CHINO Vital Signs Vital signs: Vital Signs - 8 hr 11/24/21 20:00 11/24/21 20:10 Temperature 99.1 F Pulse Rate 81 Respiratory Rate 24 Blood Pressure 101/68 Pulse Oximetry 94 MDM - Abdominal Pain <Josep Dsouza PA-C - Last Filed: 11/24/21 19:55> Differential Diagnosis Differential diagnosis: Likely abdominal pain and pancreatitis Lab Data Result diagrams: 11/24/21 16:29 11/24/21 16:29 Labs: Lab Results 11/24/21 11/24/21 11/24/21 Range/Units 16:29 16:29 16:29 WBC 5.2 (4.5-11.0) X10^3/uL RBC 4.00 (4.0-5.2) X10^6/uL Hgb 12.5 (12.0-16.0) g/dL Hct 36.9 (36-46) % MCV 92.2 (80-100) fL MCH 31.2 (26-34) PG MCHC 33.9 (30-36) % RDW 15.1 H (11.6-14.8) % Plt Count 171 (150-400) X10^3/uL Neut % (Auto) 81.0 H (50-75) % Lymph % (Auto) 6.1 L (25-40) % Stewart % (Auto) 12.6 (3-14) % Eos % (Auto) 0.0 L (2-4) % Baso % (Auto) 0.3 (0-2) % Neut # (Auto) 4200 (1419-6676) /uL Lymph # (Auto) 300 L (7225-9853) /uL Stewart # (Auto) 700 (0-900) /uL Eos # (Auto) 0 (0-450) /uL Baso # (Auto) 0 (0-100) /uL Sodium 133 L (137-145) mmol/L Potassium 4.1 (3.4-5.1) mmol/L Chloride 102 (98-107) mmol/L Carbon Dioxide 22 (22-32) mmol/L BUN 14 (7-17) mg/dL Creatinine 0.81 (0.52-1.04) mg/dL Estimated GFR > 60 (>60) mL/min BUN/Creatinine Ratio 17.3 (6-22) Glucose 123 H (80-110) mg/dL Lactate 1.9 (0.7-2.1) mmol/L Calcium 9.7 (8.4-10.2) mg/dL Total Bilirubin 1.0 (0.2-1.3) mg/dL AST 137 H (14-36) IU/L ALT 66 H (<35) IU/L Alkaline Phosphatase 132 H (38-126) U/L Total Protein 9.0 H (6.3-8.2) g/dL Albumin 4.3 (3.5-5.0) g/dL Globulin 4.7 H (1.7-4.1) g/dL Albumin/Globulin Ratio 0.9 L (1.0-2.8) Lipase 1432 H (23-300) U/L Procalcitonin 0.33 (<0.5) ng/mL SARS-CoV-2 (PCR) (Negative) 11/24/21 Range/Units 16:32 WBC (4.5-11.0) X10^3/uL RBC (4.0-5.2) X10^6/uL Hgb (12.0-16.0) g/dL Hct (36-46) % MCV (80-100) fL MCH (26-34) PG MCHC (30-36) % RDW (11.6-14.8) % Plt Count (150-400) X10^3/uL Neut % (Auto) (50-75) % Lymph % (Auto) (25-40) % Stewart % (Auto) (3-14) % Eos % (Auto) (2-4) % Baso % (Auto) (0-2) % Neut # (Auto) (4064-8099) /uL Lymph # (Auto) (2325-4005) /uL Stewart # (Auto) (0-900) /uL Eos # (Auto) (0-450) /uL Baso # (Auto) (0-100) /uL Sodium (137-145) mmol/L Potassium (3.4-5.1) mmol/L Chloride (98-107) mmol/L Carbon Dioxide (22-32) mmol/L BUN (7-17) mg/dL Creatinine (0.52-1.04) mg/dL Estimated GFR (>60) mL/min BUN/Creatinine Ratio (6-22) Glucose (80-110) mg/dL Lactate (0.7-2.1) mmol/L Calcium (8.4-10.2) mg/dL Total Bilirubin (0.2-1.3) mg/dL AST (14-36) IU/L ALT (<35) IU/L Alkaline Phosphatase (38-126) U/L Total Protein (6.3-8.2) g/dL Albumin (3.5-5.0) g/dL Globulin (1.7-4.1) g/dL Albumin/Globulin Ratio (1.0-2.8) Lipase (23-300) U/L Procalcitonin (<0.5) ng/mL SARS-CoV-2 (PCR) Negative (Negative) Imaging Data CT scan - abdomen/pelvis: Radiologist's Impression: PROCEDURE:? CT CHEST ABD PEL W CON ? INDICATIONS:? pancreatitis, banding esophageal varies ? TECHNIQUE:? After the administration of intravenous contrast, axial sections acquired from the supraclavicular neck to the pubic symphysis.? Coronal and sagittal reformats were performed.? For radiation dose reduction, the following was used:? automated exposure control, adjustment of mA and/or kV according to patient size.? ? COMPARISON: [facility], CT, CT ABDOMEN PELVIS W CON, 10/10/2021, 17:18.? [facility], CT, CT CHEST ABD PEL W CON, 04/23/2018, 6:06. ? FINDINGS:? Image quality:? Excellent.? ? CHEST: Lower Neck: No enlarged lymph nodes.? Axillae: No enlarged lymph nodes. Chest Wall:? Prior left-sided rib fractures.? ? Lungs and Airways:? Mild atelectasis in the left lung.? No consolidation.? No mass or significant pulmonary nodules.? Airways are clear. Pleura: No pneumothorax or pleural effusions.? ? Heart: Heart size is normal.? No pericardial effusion. Thoracic Vessels: The aorta and pulmonary arteries demonstrate normal size.? Mediastinum and Kita: No enlarged lymph nodes.? No pneumomediastinum. Esophagus:? Thickening of the distal esophagus, (2/41). ? ABDOMEN: Liver:? Nodular contour.? Well-circumscribed hypodensity in the right lobe of the liver, (2/52), unchanged. Gallbladder:? Absent. Biliary ducts:? CBD measures 1.1 cm and is mildly prominent.? ? Pancreas:? Hypoenhancement in the head of the pancreas, (64).? Overall this is similar to the recent CT.? Small calcifications in the head of the pancreas.? The pancreas is atrophic appearing. Spleen:? Splenomegaly measuring 15.7 cm. Adrenal Glands:? No nodule. Kidneys and Ureters:? No hydronephrosis.? Suspect small cyst in the left kidney. ? Stomach and Bowel:? Stomach, small bowel loops, and colon are unremarkable.? The appendix is not definitely seen. Peritoneum:? No abnormal intraperitoneal fluid.? No free air.? ? Ventral Wall: ? No hernia.? Abdominal Nodes:? No retroperitoneal or mesenteric adenopathy by size criteria.? Vessels:? Aorta and inferior vena cava are normal in size.? Small paraesophageal varices. ? ? PELVIS: Pelvic Organs:? Uterus is absent.? ? Bladder:? No stones. Pelvic Nodes: No enlarged lymph nodes.? Miscellaneous: No inguinal hernias are seen. ? ? ? Bones:? No suspicious lesion. ? IMPRESSION:? 1.? New thickening of the distal esophagus.? The clinical significance is uncertain.? This could be due to recent esophageal banding as reported.? It is difficult to exclude esophageal. ? 2.? No pleural effusion.? No retrocrural fluid. ? 3.? Findings of chronic calcific pancreatitis. ? 4. Nodular liver suggesting cirrhosis.? Splenomegaly. ? ? Dictated by: Andreas Hackett M.D. on 11/24/2021 at 19:20 ? ? Approved by: Andreas Hackett M.D. on 11/24/2021 at 19:34?? [facility] Narrative Medical decision making narrative: Patient was seen today for abdominal pain and fever and body aches and chills. She had a upper endoscopy done 2 days ago and she had some esophageal varices that were banded. She is chronic alcoholic and has cirrhosis of the liver and esophageal varices as well as chronic pancreatitis. CT today compared to her previous CAT scan was dated in September of this year showed similar findings of chronic pancreatitis. Her and her infectious markers were all within normal limits and the fever is likely inflammatory. It is feasible to send her home I spoke to her about a clear liquid diet for the next 24 hours of which she was agreeable. Should be discharged home and she can follow up with her primary care. <Tiana Walton MD - Last Filed: 11/25/21 03:53> Lab Data Labs: Lab Results 11/24/21 11/24/21 11/24/21 Range/Units 16:29 16:29 16:29 WBC 5.2 (4.5-11.0) X10^3/uL RBC 4.00 (4.0-5.2) X10^6/uL Hgb 12.5 (12.0-16.0) g/dL Hct 36.9 (36-46) % MCV 92.2 (80-100) fL MCH 31.2 (26-34) PG MCHC 33.9 (30-36) % RDW 15.1 H (11.6-14.8) % Plt Count 171 (150-400) X10^3/uL Neut % (Auto) 81.0 H (50-75) % Lymph % (Auto) 6.1 L (25-40) % Stewart % (Auto) 12.6 (3-14) % Eos % (Auto) 0.0 L (2-4) % Baso % (Auto) 0.3 (0-2) % Neut # (Auto) 4200 (1698-5015) /uL Lymph # (Auto) 300 L (8135-3849) /uL Stewart # (Auto) 700 (0-900) /uL Eos # (Auto) 0 (0-450) /uL Baso # (Auto) 0 (0-100) /uL Sodium 133 L (137-145) mmol/L Potassium 4.1 (3.4-5.1) mmol/L Chloride 102 (98-107) mmol/L Carbon Dioxide 22 (22-32) mmol/L BUN 14 (7-17) mg/dL Creatinine 0.81 (0.52-1.04) mg/dL Estimated GFR > 60 (>60) mL/min BUN/Creatinine Ratio 17.3 (6-22) Glucose 123 H (80-110) mg/dL Lactate 1.9 (0.7-2.1) mmol/L Calcium 9.7 (8.4-10.2) mg/dL Total Bilirubin 1.0 (0.2-1.3) mg/dL AST 137 H (14-36) IU/L ALT 66 H (<35) IU/L Alkaline Phosphatase 132 H (38-126) U/L Total Protein 9.0 H (6.3-8.2) g/dL Albumin 4.3 (3.5-5.0) g/dL Globulin 4.7 H (1.7-4.1) g/dL Albumin/Globulin Ratio 0.9 L (1.0-2.8) Lipase 1432 H (23-300) U/L Procalcitonin 0.33 (<0.5) ng/mL SARS-CoV-2 (PCR) (Negative) 11/24/21 Range/Units 16:32 WBC (4.5-11.0) X10^3/uL RBC (4.0-5.2) X10^6/uL Hgb (12.0-16.0) g/dL Hct (36-46) % MCV (80-100) fL MCH (26-34) PG MCHC (30-36) % RDW (11.6-14.8) % Plt Count (150-400) X10^3/uL Neut % (Auto) (50-75) % Lymph % (Auto) (25-40) % Stewart % (Auto) (3-14) % Eos % (Auto) (2-4) % Baso % (Auto) (0-2) % Neut # (Auto) (6559-0024) /uL Lymph # (Auto) (7067-3287) /uL Stewart # (Auto) (0-900) /uL Eos # (Auto) (0-450) /uL Baso # (Auto) (0-100) /uL Sodium (137-145) mmol/L Potassium (3.4-5.1) mmol/L Chloride (98-107) mmol/L Carbon Dioxide (22-32) mmol/L BUN (7-17) mg/dL Creatinine (0.52-1.04) mg/dL Estimated GFR (>60) mL/min BUN/Creatinine Ratio (6-22) Glucose (80-110) mg/dL Lactate (0.7-2.1) mmol/L Calcium (8.4-10.2) mg/dL Total Bilirubin (0.2-1.3) mg/dL AST (14-36) IU/L ALT (<35) IU/L Alkaline Phosphatase (38-126) U/L Total Protein (6.3-8.2) g/dL Albumin (3.5-5.0) g/dL Globulin (1.7-4.1) g/dL Albumin/Globulin Ratio (1.0-2.8) Lipase (23-300) U/L Procalcitonin (<0.5) ng/mL SARS-CoV-2 (PCR) Negative (Negative) Discharge Plan Departure Patient Disposition: Home Clinical Impression: Pancreatitis, Abdominal pain Instructions: DI for Pancreatitis, DI for Abdominal Pain-Adult Activity Restrictions/Additional Instructions: You were seen today for your abdominal pain and fever and chills. Your CT is similar to the last CT scan that you had in September that shows chronic pancreatitis. I would recommend a clear liquid diet which consisted of chicken broth and water and fluids to maintain hydration for the next 24 hours. At that point I would introduce back food slowly and gradually eating foods that are easy to digest. I would recommend that you contact your primary care on Thursday to let them know that you were seen in the emergency room. If your side condition worsens she can always return to the ED or you can follow-up with her PCP. Thank you for the opportunity to care for you today. Prescriptions: No Action lorazepam 1 mg tablet 1 mg PO DAILY Qty: 30 5RF nortriptyline 25 mg capsule 25 mg PO BEDTIME PRN (Reason: insomnia) Qty: 30 5RF levothyroxine 100 mcg capsule 100 mcg PO DAILY 0RF Xifaxan 550 MG tablet 550 mg PO BID Qty: 60 11RF liothyronine [Cytomel] 5 mcg tablet 10 mcg PO DAILY 0RF naltrexone microspheres 380 mg suspension,extended rel recon 380 mg IM QMONTH Qty: 3 3RF Rx Instructions: Inject 380mg monthly IM. tramadol 50 mg tablet 50 mg PO QID PRN (Reason: pain) Qty: 40 0RF Rx Instructions: Take 1 tab by mouth up to 4x/day as needed for pain Shingrix (PF) 50 mcg/0.5 mL suspension for reconstitution 0.5 ml IM ONCE Qty: 1 0RF Rx Instructions: as a single dose gabapentin 300 mg capsule 300 mg PO QID Qty: 360 3RF Rx Instructions: Take 1 cap up to 4x/day for pain. ferrous sulfate 324 mg (65 mg iron) tablet,delayed release (DR/EC) 324 mg PO DAILY 0RF nadolol 20 MG tablet 30 mg PO DAILY 0RF lactulose 10 gram/15 mL solution 15 - 30 ml PO 1-2XD 0RF Label Comments: take 15 TO 30ML by mouth one to two times a day Referrals: Divina Lopes ARNP [Primary Care Provider] - <Tiana Walton MD - Last Filed: 11/25/21 03:53> Cosign ED Attending Cosignature Attestation: I was immediately available in the department for consultation throughout this patient's visit. I agree with documentation as above. Tiana Walton MD
[2021-11-24] MEDS: SODIUM CHLORIDE 0.9% 1,000 ML 1000 ML IV (18:56)
== END 2021-11-24 20:10 | disposition home or self-care (01) ==
PROVIDERS: Emergency Medicine; Emergency Provider Physician Assistant; PCP Nurse Practitioner
DX: K85.90 Acute pancreatitis without necrosis or infection, unspecified (principal); R50.9 Fever, unspecified; R10.9 Unspecified abdominal pain; Z20.822 Contact with and (suspected) exposure to COVID-19
CPT/HCPCS: 36415; 71045; 71260; 74177; 80053; 83605; 83690; 84145; 85025; 87040; 87635; 99284; C9803; Q9967

== ENCOUNTER 2022-01-02 10:22 | Emergency (ER) | payer OTHER, MEDICAID, SELFPAY ==
[2022-01-02] VITALS (12 sets, daily range): BP systolic 101–176; BP diastolic 63–113; PULSE 110–122; RESP 15–25; TEMP 36.4; O2SAT 94–99; BMI 22.3
--- NOTE | 2022-01-02 10:34 | DI.RAD.S_ITS ---
PROCEDURE: XR CHEST 1V INDICATIONS: vomiting blood TECHNIQUE: One view of the chest was acquired. COMPARISON: [facility], CR, XR CHEST 1 VIEW, 07/18/2021, 17:07. [facility], CR, XR CHEST 1V, 12/05/2020, 16:53. [facility], CR, XR CHEST 1V, 11/24/2021, 16:47. FINDINGS: Surgical changes and devices: None. Lungs and pleura: No suspicious focal airspace opacity. No pleural effusions or pneumothorax. Mediastinum: Mediastinal contours appear unremarkable. Heart size is within normal limits. Bones and chest wall: No suspicious bony lesions. Overlying soft tissues appear unremarkable. IMPRESSION: No acute cardiopulmonary abnormality. Dictated by: López Moulton M.D. on 01/02/2022 at 11:13 Approved by: López Moulton M.D. on 01/02/2022 at 11:16
[2022-01-02 10:53] LABS: Add Manual Diff / Slide Review NO; Basophils Absolute Auto 0 /uL (0-100); Basophils Percent Auto 0.5 % (0-2); Eosinophils Absolute Auto 200 /uL (0-450); Eosinophils Percent Auto 2.4 % (2-4); Hematocrit 34.2 % (36-46); Hemoglobin 11.2 g/dL (12.0-16.0); Lymphocytes Absolute Auto 2000 /uL (1100-4500); Lymphocytes Percent Auto 32.5 % (25-40); Mean Corpuscular HGB Conc 32.9 % (30-36); Mean Corpuscular Hemoglobin 28.5 PG (26-34); Mean Corpuscular Volume 86.8 fL (80-100); Monocytes Absolute Auto 900 /uL (0-900); Monocytes Percent Auto 14.3 % (3-14); Neutrophils Absolute Auto 3200 /uL (1500-7000); Neutrophils Percent Auto 50.3 % (50-75); Platelet Count 129 X10^3/uL (150-400); Red Blood Cell Count 3.94 X10^6/uL (4.0-5.2); White Blood Cell Count 6.3 X10^3/uL (4.5-11.0)
[2022-01-02 11:00] LABS: INR 1.8 (0.9-1.3); Prothrombin Time 19.8 SECONDS (10.1-12.7)
[2022-01-02 11:02] LABS: PTT Partial Thromboplastin Tim 38 SECONDS (26.4-36.2)
[2022-01-02 11:04] LABS: Alanine Aminotransferase 119 IU/L (<35); Albumin 3.9 g/dL (3.5-5.0); Alkaline Phosphatase 88 U/L (38-126); Aspartate Aminotransferase 164 IU/L (14-36); BUN Creatinine Ratio 32.4 (6-22); Bilirubin Total 1.2 mg/dL (0.2-1.3); Blood Urea Nitrogen 22 mg/dL (7-17); Calcium 8.7 mg/dL (8.4-10.2); Carbon Dioxide 23 mmol/L (22-32); Chloride 105 mmol/L (98-107); Estimated Glomerular Filt Rate > 60 mL/min (>60); Globulin 3.9 g/dL (1.7-4.1); Glucose 94 mg/dL (80-110); HEMOLYSIS < 15 (0-50); Sodium 138 mmol/L (137-145); Total Protein 7.8 g/dL (6.3-8.2)
[2022-01-02 11:05] LABS: Lipase 1410 U/L (23-300)
[2022-01-02 11:27] LABS: Ethanol (ETOH) 108 mg/dL
--- NOTE | 2022-01-02 12:00 | ED.GIBLEED ---
HPI - GI Bleed General Chief complaint: GI Bleed Stated complaint: Vomiting with blood Time Seen by Provider: 01/02/22 10:34 Source: patient Mode of arrival: Ambulatory History of Present Illness HPI Narrative: 62-year-old female. With a history of alcohol abuse and cirrhosis and esophageal varices. Approximately 1 month ago per report she was seen at [facility] in [facility] where she had banding of the varices. She continues to drink alcohol. She states that over the past 24 hours she had 1 episode of vomiting bright red blood. She has since vomited a couple more times but has been much smaller and now it is dark red and having clots. She has minimal abdominal tenderness. She no longer has any nausea. No fevers. No change in bowel habits. No urinary symptoms. Related Data Home Medications Medication Instructions Recorded Confirmed nadolol 20 mg tablet 30 mg PO DAILY 04/23/18 12/16/21 liothyronine 5 mcg tablet (Cytomel) 10 mcg PO DAILY 05/31/18 12/16/21 lactulose 10 gram/15 mL oral 15 - 30 ml PO 1-2XD 12/27/18 12/16/21 solution levothyroxine 100 mcg capsule 100 mcg PO DAILY 12/19/19 12/16/21 ferrous sulfate 324 mg (65 mg 324 mg PO DAILY 10/09/21 12/16/21 iron) tablet,delayed release Previous Rx's Medication Instructions Recorded rifaximin 550 mg tablet (Xifaxan) 550 mg PO BID #60 tabs 09/16/16 varicella-zoster glycoE [id number] 0.5 ml IM ONCE #1 ea 03/12/21 adj(PF) 50 mcg/0.5 mL IM susp, kit (Shingrix (PF)) gabapentin 300 mg capsule 300 mg PO QID #360 caps 04/25/21 lorazepam 1 mg tablet 1 mg PO DAILY #30 tabs 08/16/21 nortriptyline 25 mg capsule 25 mg PO BEDTIME PRN insomnia #30 08/16/21 caps tramadol 50 mg tablet 50 mg PO QID PRN pain #40 tabs 11/14/21 Allergies Allergy/AdvReac Type Severity Reaction Status Date / Time No Known Drug Allergies Allergy Verified 01/02/22 10:28 Review of Systems Review of Systems ROS Unobtainable: All systems reviewed & are unremarkable except as noted in HPI and below Patient History Medical History Alcohol use disorder, severe, in early remission Anxiety Ascites due to alcoholic cirrhosis Cardiac arrhythmia Chicken pox Cirrhosis (2012) Coagulation disorder (2012) Depression Eczema (2014) EV (esophageal varices) (10/2015) GERD (gastroesophageal reflux disease) GI bleeding (2015) Hemorrhoids, internal History of alcohol abuse (12/27/15) History of blood transfusion (10/2015) History of heavy periods (2014) Hypercalcemia Hypertension Hypothyroidism Intermittent palpitations (04/2019) Measles Mumps Nonalcoholic fatty liver disease Ovarian cyst (2012) Painful menstrual periods (2012) Pancreatitis Portal hypertensive gastropathy (05/2015) Psoriasis (2014) PTSD (post-traumatic stress disorder) (1999) SBO (small bowel obstruction) Shortness of breath Weight gain Surgical History H/O bilateral oophorectomy History of appendectomy History of cholecystectomy History of esophagogastroduodenoscopy (EGD) (01/2009) History of esophagogastroduodenoscopy (EGD) (05/2015) History of inguinal hernia repair Status post appendectomy Status post colonoscopy (01/2009) Status post hernia repair Status post hysteroscopy (06/17/11) Status post laparoscopic supracervical hysterectomy (08/25/16) Family History Grandfather Heart disease PR (myocardial infarction) Grandmother Alcoholism Father No problems noted. Mother No problems noted. Grandfather Heart disease Grandmother Colon cancer Brother No problems noted. Social History Smoking Status: Never smoker alcohol intake: current Smoking Status: Never smoker alcohol intake frequency: holidays/special occasions only Substance Use Type: does not use Exam Initial Vital Signs Initial Vital Signs: Vital Signs Temperature 97.5 F L 01/02/22 10:28 Pulse Rate 122 H 01/02/22 10:28 Respiratory Rate 15 01/02/22 10:28 Blood Pressure 119/81 01/02/22 10:28 Pulse Oximetry 99 01/02/22 10:28 Oxygen Delivery Method 01/02/22 10:28 Const General: cooperative, comfortable and No ill appearing HENMS Head: normal to inspection and normocephalic Resp Effort & Inspection: normal respiratory effort Auscultation: clear to auscultation bilaterally Cardio Rate: tachycardic Rhythm: regular rhythm GI Inspection: normal to inspection Palpation: soft, No firm and tender (Mild diffuse tenderness) Skin General: no rashes or lesions noted Neuro General: patient alert, patient awake and moves all extremities Extrem General: normal to inspection and capillary refill normal Psych Appearance: grossly normal Course Orders Ordered: ED Orders 01/02/22 10:31 EKG-12 Lead Stat 01/02/22 10:34 XR chest 1V Stat 01/02/22 10:40 Complete Blood Count AUTO DIFF Stat Comprehensive Metabolic Panel Stat ETOH [Ethanol (ETOH)] Stat Lipase Stat Partial Thromboplastin Time Stat Prothrombin Time INR Stat Type and Screen Stat 01/02/22 13:49 ETOH [Ethanol (ETOH)] Stat Hemoglobin and Hematocrit Stat Vital Signs Vital signs: Vital Signs - 8 hr 01/02/22 10:28 01/02/22 10:53 01/02/22 10:53 Temperature 97.5 F L Pulse Rate 122 H 117 H Respiratory Rate 15 25 H Blood Pressure 119/81 101/69 Pulse Oximetry 99 96 Oxygen Delivery Method Room Air 01/02/22 11:00 01/02/22 11:00 01/02/22 11:30 Temperature Pulse Rate 121 H Respiratory Rate Blood Pressure 176/113 H 103/63 Pulse Oximetry 96 Oxygen Delivery Method 01/02/22 11:30 01/02/22 12:00 01/02/22 12:00 Temperature Pulse Rate 117 H 117 H Respiratory Rate 23 16 Blood Pressure 113/73 Pulse Oximetry 94 96 Oxygen Delivery Method 01/02/22 12:30 01/02/22 12:30 01/02/22 13:00 Temperature Pulse Rate Respiratory Rate 21 Blood Pressure 109/73 105/72 Pulse Oximetry 94 Oxygen Delivery Method 01/02/22 13:00 01/02/22 13:30 01/02/22 13:30 Temperature Pulse Rate 118 H 115 H Respiratory Rate Blood Pressure 104/75 Pulse Oximetry 97 96 Oxygen Delivery Method 01/02/22 14:00 01/02/22 14:00 01/02/22 14:30 Temperature Pulse Rate 117 H Respiratory Rate Blood Pressure 131/79 120/78 Pulse Oximetry 99 Oxygen Delivery Method 01/02/22 14:30 01/02/22 14:39 01/02/22 14:45 Temperature Pulse Rate 116 H 110 H Respiratory Rate 16 16 Blood Pressure 120/78 Pulse Oximetry 97 98 Oxygen Delivery Method Room Air MDM - GI Bleed Medical Records Attestation: I reviewed the patient's medical records. Lab Data Attestation: I reviewed the patient's lab results. Result diagrams: 01/02/22 13:49 01/02/22 10:40 Labs: Lab Results 01/02/22 01/02/22 01/02/22 Range/Units 10:40 10:40 10:40 WBC 6.3 (4.5-11.0) X10^3/uL RBC 3.94 L (4.0-5.2) X10^6/uL Hgb 11.2 L (12.0-16.0) g/dL Hct 34.2 L (36-46) % MCV 86.8 (80-100) fL MCH 28.5 (26-34) PG MCHC 32.9 (30-36) % RDW 17.0 H (11.6-14.8) % Plt Count 129 L (150-400) X10^3/uL Neut % (Auto) 50.3 (50-75) % Lymph % (Auto) 32.5 (25-40) % Story % (Auto) 14.3 H (3-14) % Eos % (Auto) 2.4 (2-4) % Baso % (Auto) 0.5 (0-2) % Neut # (Auto) 3200 (0280-9434) /uL Lymph # (Auto) 2000 (3794-4711) /uL Story # (Auto) 900 (0-900) /uL Eos # (Auto) 200 (0-450) /uL Baso # (Auto) 0 (0-100) /uL PT 19.8 H (10.1-12.7) SECONDS INR 1.8 H (0.9-1.3) APTT 38 H (26.4-36.2) SECONDS Sodium 138 (137-145) mmol/L Potassium 4.0 (3.4-5.1) mmol/L Chloride 105 (98-107) mmol/L Carbon Dioxide 23 (22-32) mmol/L BUN 22 H (7-17) mg/dL Creatinine 0.68 (0.52-1.04) mg/dL Estimated GFR > 60 (>60) mL/min BUN/Creatinine Ratio 32.4 H (6-22) Glucose 94 (80-110) mg/dL Calcium 8.7 (8.4-10.2) mg/dL Total Bilirubin 1.2 (0.2-1.3) mg/dL AST 164 H (14-36) IU/L ALT 119 H (<35) IU/L Alkaline Phosphatase 88 (38-126) U/L Total Protein 7.8 (6.3-8.2) g/dL Albumin 3.9 (3.5-5.0) g/dL Globulin 3.9 (1.7-4.1) g/dL Albumin/Globulin Ratio 1.0 (1.0-2.8) Lipase (23-300) U/L Ethyl Alcohol ( - 10) mg/dL Blood Type Antibody Screen 01/02/22 01/02/22 01/02/22 Range/Units 10:40 10:40 10:40 WBC (4.5-11.0) X10^3/uL RBC (4.0-5.2) X10^6/uL Hgb (12.0-16.0) g/dL Hct (36-46) % MCV (80-100) fL MCH (26-34) PG MCHC (30-36) % RDW (11.6-14.8) % Plt Count (150-400) X10^3/uL Neut % (Auto) (50-75) % Lymph % (Auto) (25-40) % Story % (Auto) (3-14) % Eos % (Auto) (2-4) % Baso % (Auto) (0-2) % Neut # (Auto) (0947-3474) /uL Lymph # (Auto) (5207-3948) /uL Story # (Auto) (0-900) /uL Eos # (Auto) (0-450) /uL Baso # (Auto) (0-100) /uL PT (10.1-12.7) SECONDS INR (0.9-1.3) APTT (26.4-36.2) SECONDS Sodium (137-145) mmol/L Potassium (3.4-5.1) mmol/L Chloride (98-107) mmol/L Carbon Dioxide (22-32) mmol/L BUN (7-17) mg/dL Creatinine (0.52-1.04) mg/dL Estimated GFR (>60) mL/min BUN/Creatinine Ratio (6-22) Glucose (80-110) mg/dL Calcium (8.4-10.2) mg/dL Total Bilirubin (0.2-1.3) mg/dL AST (14-36) IU/L ALT (<35) IU/L Alkaline Phosphatase (38-126) U/L Total Protein (6.3-8.2) g/dL Albumin (3.5-5.0) g/dL Globulin (1.7-4.1) g/dL Albumin/Globulin Ratio (1.0-2.8) Lipase 1410 H (23-300) U/L Ethyl Alcohol 108 H ( - 10) mg/dL Blood Type A Positive Antibody Screen Negative 01/02/22 01/02/22 Range/Units 13:49 13:49 WBC (4.5-11.0) X10^3/uL RBC (4.0-5.2) X10^6/uL Hgb 10.6 L (12.0-16.0) g/dL Hct 32.3 L (36-46) % MCV (80-100) fL MCH (26-34) PG MCHC (30-36) % RDW (11.6-14.8) % Plt Count (150-400) X10^3/uL Neut % (Auto) (50-75) % Lymph % (Auto) (25-40) % Story % (Auto) (3-14) % Eos % (Auto) (2-4) % Baso % (Auto) (0-2) % Neut # (Auto) (3576-5647) /uL Lymph # (Auto) (2070-9774) /uL Story # (Auto) (0-900) /uL Eos # (Auto) (0-450) /uL Baso # (Auto) (0-100) /uL PT (10.1-12.7) SECONDS INR (0.9-1.3) APTT (26.4-36.2) SECONDS Sodium (137-145) mmol/L Potassium (3.4-5.1) mmol/L Chloride (98-107) mmol/L Carbon Dioxide (22-32) mmol/L BUN (7-17) mg/dL Creatinine (0.52-1.04) mg/dL Estimated GFR (>60) mL/min BUN/Creatinine Ratio (6-22) Glucose (80-110) mg/dL Calcium (8.4-10.2) mg/dL Total Bilirubin (0.2-1.3) mg/dL AST (14-36) IU/L ALT (<35) IU/L Alkaline Phosphatase (38-126) U/L Total Protein (6.3-8.2) g/dL Albumin (3.5-5.0) g/dL Globulin (1.7-4.1) g/dL Albumin/Globulin Ratio (1.0-2.8) Lipase (23-300) U/L Ethyl Alcohol 54 H ( - 10) mg/dL Blood Type Antibody Screen Imaging Data Chest x-ray: Radiologist's Impression: [place] [address] XRay Report Signed Patient: Kristen Castle MR#: [id number] : 1960 Acct:[id number] Age/Sex: 62 / F Date of Service: 01/02/22 Loc: Accession Number: [id number] ?? Procedure: XR chest 1V Ordering Provider: Tima Nelson D.O. PROCEDURE:? XR CHEST 1V ? INDICATIONS:? vomiting blood ? TECHNIQUE:? One view of the chest was acquired.? ? COMPARISON:? [facility], , XR CHEST 1 VIEW, 07/18/2021, 17:07.? [facility], , XR CHEST 1V, 12/05/2020, 16:53.? [facility], , XR CHEST 1V, 11/24/2021, 16:47. ? FINDINGS:? ? Surgical changes and devices:? None.? ? Lungs and pleura:? No suspicious focal airspace opacity.? No pleural effusions or pneumothorax.? ? Mediastinum:? Mediastinal contours appear unremarkable.? Heart size is within normal limits.? ? Bones and chest wall:? No suspicious bony lesions.? Overlying soft tissues appear unremarkable.? ? IMPRESSION:? No acute cardiopulmonary abnormality. ? ? Dictated by: López Moulton M.D. on 01/02/2022 at 11:13 ? ? Approved by: López Moulton M.D. on 01/02/2022 at 11:16? ECG Data Attestation: I personally reviewed and interpreted this ECG as follows: Interpretation: Sinus tachycardia Ventricular rate 118 Normal QRS Normal QTC Artifact noted which makes baseline somewhat difficult to interpret MDM Narrative Medical decision making narrative: Patient has been stable since arrival. Her tachycardia improved. She has never been hypotensive. I did receive records from [facility]. I also talked the GI doctor. She does have known esophageal varices. After her last banding she did have some bleeding. Had a discussion with the patient regarding this. Her alcohol level is now below legal limit. She is alert oriented x3. Not clinically intoxicated. Had a discussion regarding her presenting symptoms. She has no further vomiting. We did discuss admitting her to the hospital which would require transfer to a facility that has GI capability. Patient states she would not like to be admitted. She does have a follow-up in approximately 2 months from now. We did discuss the risks of being discharged given her history of varices. We discussed the potential for continued bleeding. Patient expressed understanding of this but still would like to be discharged. We did discuss the importance of her avoiding alcohol. She expressed understanding of this. She will return if any of her symptoms worsen normal contact her GI provider for a follow-up. Discharge Plan Departure Patient Disposition: Home Clinical Impression: Hematemesis Instructions: DI for Vomiting -- Adult Activity Restrictions/Additional Instructions: It is important that you continue to take all of your medications as directed and keep all of your scheduled medical appointments. You do need to avoid alcohol as best you can. Return to the emergency department any new or worsening symptoms. Prescriptions: No Action lorazepam 1 mg tablet 1 mg PO DAILY Qty: 30 5RF nortriptyline 25 mg capsule 25 mg PO BEDTIME PRN (Reason: insomnia) Qty: 30 5RF levothyroxine 100 mcg capsule 100 mcg PO DAILY Xifaxan 550 MG tablet 550 mg PO BID Qty: 60 11RF liothyronine [Cytomel] 5 mcg tablet 10 mcg PO DAILY tramadol 50 mg tablet 50 mg PO QID PRN (Reason: pain) Qty: 40 0RF Rx Instructions: Take 1 tab by mouth up to 4x/day as needed for pain Shingrix (PF) 50 mcg/0.5 mL suspension for reconstitution 0.5 ml IM ONCE Qty: 1 0RF Rx Instructions: as a single dose gabapentin 300 mg capsule 300 mg PO QID Qty: 360 3RF Rx Instructions: Take 1 cap up to 4x/day for pain. ferrous sulfate 324 mg (65 mg iron) tablet,delayed release (DR/EC) 324 mg PO DAILY nadolol 20 MG tablet 30 mg PO DAILY lactulose 10 gram/15 mL solution 15 - 30 ml PO 1-2XD Label Comments: take 15 TO 30ML by mouth one to two times a day Referrals: Divina Lopes ARNP [Primary Care Provider] - Visit Report Forms: Patient Portal/API
[2022-01-02 14:06] LABS: Hematocrit 32.3 % (36-46); Hemoglobin 10.6 g/dL (12.0-16.0)
[2022-01-02 14:13] LABS: Ethanol (ETOH) 54 mg/dL
== END 2022-01-02 14:55 | disposition home or self-care (01) ==
PROVIDERS: Emergency Provider Emergency Medicine; PCP Nurse Practitioner
DX: K92.0 Hematemesis (principal); R10.9 Unspecified abdominal pain; R00.0 Tachycardia, unspecified
CPT/HCPCS: 36415; 71045; 80053; 80320; 83690; 85014; 85018; 85025; 85610; 85730; 86850; 86900; 86901; 93005; 99284

== ENCOUNTER 2022-01-19 11:36 | Emergency (ER) | payer OTHER, MEDICAID, SELFPAY ==
[2022-01-19] VITALS (32 sets, daily range): BP systolic 93–126; BP diastolic 52–76; PULSE 98–108; RESP 16–22; TEMP 36.8–37.2; O2SAT 95–100; BMI 22.3
--- NOTE | 2022-01-19 12:01 | DI.RAD.S_ITS ---
PROCEDURE: XR CHEST 1V INDICATIONS: suspected sepsis TECHNIQUE: One view of the chest was acquired. COMPARISON: [facility], CR, XR CHEST 1V, 01/02/2022, 10:56. FINDINGS: Surgical changes and devices: None. Lungs and pleura: Lungs are clear. No pleural effusions or pneumothorax. Mediastinum: Mediastinal contours appear normal. Heart size is normal. Bones and chest wall: No suspicious bony lesions. Overlying soft tissues appear unremarkable. IMPRESSION: No acute cardiopulmonary abnormality. Dictated by: Ariel Skelton M.D. on 01/19/2022 at 11:49 Approved by: Ariel Skelton M.D. on 01/19/2022 at 11:50
[2022-01-19] MEDS: SODIUM CHLORIDE 0.9% 1,000 ML 1000 ML IV (12:11)
[2022-01-19 12:14] LABS: Alanine Aminotransferase 246 IU/L (<35); Albumin 3.3 g/dL (3.5-5.0); Alkaline Phosphatase 73 U/L (38-126); Aspartate Aminotransferase 589 IU/L (14-36); BUN Creatinine Ratio 36.7 (6-22); Bilirubin Total 1.8 mg/dL (0.2-1.3); Blood Urea Nitrogen 22 mg/dL (7-17); Calcium 10.2 mg/dL (8.4-10.2); Carbon Dioxide 24 mmol/L (22-32); Chloride 102 mmol/L (98-107); Estimated Glomerular Filt Rate > 60 mL/min (>60); Globulin 3.4 g/dL (1.7-4.1); Glucose 118 mg/dL (80-110); HEMOLYSIS < 15 (0-50); Lipase 1008 U/L (23-300); Potassium 4.8 mmol/L (3.4-5.1); Sodium 137 mmol/L (137-145); Total Protein 6.7 g/dL (6.3-8.2)
[2022-01-19 12:20] LABS: Add Manual Diff / Slide Review NO; Basophils Absolute Auto 100 /uL (0-100); Basophils Percent Auto 0.7 % (0-2); Eosinophils Absolute Auto 0 /uL (0-450); Eosinophils Percent Auto 0.1 % (2-4); Hematocrit 21.2 % (36-46); Lymphocytes Absolute Auto 1800 /uL (1100-4500); Lymphocytes Percent Auto 19.5 % (25-40); Mean Corpuscular HGB Conc 32.8 % (30-36); Mean Corpuscular Hemoglobin 27.3 PG (26-34); Mean Corpuscular Volume 83.2 fL (80-100); Monocytes Absolute Auto 600 /uL (0-900); Neutrophils Absolute Auto 6700 /uL (1500-7000); Neutrophils Percent Auto 72.7 % (50-75); Platelet Count 204 X10^3/uL (150-400); Red Blood Cell Count 2.54 X10^6/uL (4.0-5.2); Red Cell Distribution Width 18.4 % (11.6-14.8); White Blood Cell Count 9.2 X10^3/uL (4.5-11.0)
[2022-01-19 12:26] LABS: Lactate (Lactic Acid) 4.9 mmol/L (0.7-2.1)
--- NOTE | 2022-01-19 12:28 | ED.DIZZY ---
HPI - Dizziness General Chief Complaint: Dizziness Stated Complaint: bp104/68 Time Seen by Provider: 01/19/22 12:04 Source: patient Mode of arrival: Ambulatory Limitations: no limitations History of Present Illness HPI Narrative: This is a 62-year-old female with known cirrhosis secondary to fatty liver and alcohol abuse with esophageal banding in the past and plan banding for February 2022. Patient states in the last 24 hours she had developed some chest pain, shortness of breath and abdominal discomfort as well as increasing swelling of her abdomen. She denies fevers or chills. No back or flank pain. Her abdomen has become more distended. She is been having emesis last night at 10:00 p.m. and this morning with bright red blood and clots. She sits this morning was more burgundy discoloration. She is not had any diarrhea, no black or bloody stools at this point. Patient has not had any syncope but has felt dizzy. She denies any new swelling in her extremities. She states she is not typically distended in her abdomen. She has never had paracentesis. She states she is had cholecystectomy hysterectomy by bilateral oophorectomy and appendectomy. She denies tobacco she states she does still drink alcohol but states it is rare, denies any illicit. Denies any prior hepatitis history. Her primary care is Dr. Lopes she follows with Dr. Street through gastroenterology at [facility] in [place]. Related Data Home Medications Medication Instructions Recorded Confirmed nadolol 20 mg tablet 30 mg PO DAILY 04/23/18 12/16/21 liothyronine 5 mcg tablet (Cytomel) 10 mcg PO DAILY 05/31/18 12/16/21 lactulose 10 gram/15 mL oral 15 - 30 ml PO 1-2XD 12/27/18 12/16/21 solution levothyroxine 100 mcg capsule 100 mcg PO DAILY 12/19/19 12/16/21 ferrous sulfate 324 mg (65 mg 324 mg PO DAILY 10/09/21 12/16/21 iron) tablet,delayed release Previous Rx's Medication Instructions Recorded rifaximin 550 mg tablet (Xifaxan) 550 mg PO BID #60 tabs 09/16/16 varicella-zoster glycoE [id number] 0.5 ml IM ONCE #1 ea 03/12/21 adj(PF) 50 mcg/0.5 mL IM susp, kit (Shingrix (PF)) gabapentin 300 mg capsule 300 mg PO QID #360 caps 04/25/21 lorazepam 1 mg tablet 1 mg PO DAILY #30 tabs 08/16/21 nortriptyline 25 mg capsule 25 mg PO BEDTIME PRN insomnia #30 08/16/21 caps tramadol 50 mg tablet 50 mg PO QID PRN pain #40 tabs 11/14/21 Allergies Allergy/AdvReac Type Severity Reaction Status Date / Time No Known Drug Allergies Allergy Verified 01/02/22 10:28 Review of Systems Review of Systems ROS Unobtainable: All systems reviewed & are unremarkable except as noted in HPI and below Patient History Medical History Alcohol use disorder, severe, in early remission Anxiety Ascites due to alcoholic cirrhosis Cardiac arrhythmia Chicken pox Cirrhosis (2012) Coagulation disorder (2012) Depression Eczema (2014) EV (esophageal varices) (10/2015) GERD (gastroesophageal reflux disease) GI bleeding (2015) Hemorrhoids, internal History of alcohol abuse (12/27/15) History of blood transfusion (10/2015) History of heavy periods (2014) Hypercalcemia Hypertension Hypothyroidism Intermittent palpitations (04/2019) Measles Mumps Nonalcoholic fatty liver disease Ovarian cyst (2012) Painful menstrual periods (2012) Pancreatitis Portal hypertensive gastropathy (05/2015) Psoriasis (2014) PTSD (post-traumatic stress disorder) (1999) SBO (small bowel obstruction) Shortness of breath Weight gain Surgical History H/O bilateral oophorectomy History of appendectomy History of cholecystectomy History of esophagogastroduodenoscopy (EGD) (01/2009) History of esophagogastroduodenoscopy (EGD) (05/2015) History of inguinal hernia repair Status post appendectomy Status post colonoscopy (01/2009) Status post hernia repair Status post hysteroscopy (06/17/11) Status post laparoscopic supracervical hysterectomy (08/25/16) Family History Grandfather Heart disease [place] (myocardial infarction) Grandmother Alcoholism Father No problems noted. Mother No problems noted. Grandfather Heart disease Grandmother Colon cancer Brother No problems noted. Social History Smoking Status: Never smoker alcohol intake: current Smoking Status: Never smoker alcohol intake frequency: holidays/special occasions only Substance Use Type: does not use Exam Narrative Exam Narrative: GEN: Elderly appearing female, alert and oriented x 3, patient appears to be in mild distress. Patient does appear pale. HEENT: Atraumatic, pupils are equal round reactive to light, extraocular movements are intact, nares are clear, TMs are clear with no fluid, there is conjunctival pallor. Throat is clear without any exudates, erythema, tonsillar enlargement or uvular deviation HEART: Regular rate and rhythm without murmur, clicks, rubs. No carotid bruits, pulses are equal in upper and lower extremities LUNGS:Lungs clear to auscultation, no wheezes, rales, crackles, chest moves symmetrically, no tachypnea accessory muscle use. ABD:bowel sounds normal, soft, non-tender, no guarding, rebound, rigidity, no masses noted, no hepatosplenomegaly, distended but nontender. :No CVA tenderness MSCL: Non-tender, no muscle atrophy, muscles strength 5/5 upper and lower extremities, full range of motion, normal gait NEURO: GCS of 15, no asterixis. Cranial nerves 2-12 grossly intact. Initial Vital Signs Initial Vital Signs: Vital Signs Pulse Rate 107 H 01/19/22 11:43 Pulse Oximetry 100 01/19/22 11:43 Scores GCS Karla coma scale eye opening: Spontaneous [place] coma scale verbal response: Orientated [place] coma scale motor response: Obey commands Karla coma scale total score: 15 Course Orders Ordered: Discontinued Medications Sodium Chloride (Normal Saline 0.9%) 1,000 mls @ 1,000 mls/hr IV BOLUS ONE Stop: 01/19/22 12:59 Last Infusion: 01/19/22 12:50 Dose: 0 mls/hr Documented By: Admin: 01/19/22 12:11 Dose: 1,000 mls/hr Documented By: WILMAR Sodium Chloride (Normal Saline 0.9%) 1,000 mls @ 1,000 mls/hr IV BOLUS ONE Stop: 01/19/22 13:29 Last Admin: 01/19/22 16:03 Dose: Not Given Documented By: GERA Octreotide Acetate 500 mcg/ (Sodium Chloride) 101 mls @ 10.1 mls/hr IV CONT AGNIESZKA; Protocol Last Infusion: 01/19/22 17:49 Dose: 0 mcg/hr, 0 mls/hr Documented By: Admin: 01/19/22 13:39 Dose: 50 mcg/hr, 10.1 mls/hr Documented By: CECYU Ceftriaxone Sodium 1,000 mg/ (Sodium Chloride) 100 mls @ 200 mls/hr IV NOW ONE Stop: 01/19/22 13:02 Last Infusion: 01/19/22 14:16 Dose: 0 mls/hr Documented By: Admin: 01/19/22 13:39 Dose: 200 mls/hr Documented By: CECYU Pantoprazole Sodium 80 mg/ (Sodium Chloride) 100 mls @ 10 mls/hr IV CONT AGNIESZKA Last Infusion: 01/19/22 17:49 Dose: 0 mls/hr Documented By: Admin: 01/19/22 15:34 Dose: 10 mls/hr Documented By: WILMAR Octreotide Acetate (Octreotide 100 Mcg/Ml Vial) 50 mcg IV NOW ONE Stop: 01/19/22 13:02 Last Admin: 01/19/22 13:39 Dose: 50 mcg Documented By: GERA Pantoprazole Sodium (Pantoprazole 40 Mg Vial) 80 mg IV NOW ONE Stop: 01/19/22 13:55 Last Admin: 01/19/22 14:05 Dose: 80 mg Documented By: AMU Consultations Consultation #1: Gastroenterology at [facility], Agreeable with octreotide, discussed had Protonix 80 mg but would like Protonix drip feels this is more indicated in this patient's situation agrees with 1 unit of packed red blood cells but asked for no additional. No vasopressin at this time. Notes patient was banded in the past 2 months had small varices but is happy to see the patient and feels very appropriate for transfer at this time. Consultation #2: Dr. Valencia, hospitalist discussed patient likely more appropriate for ICU and asked that we consult with our restaurant area manager. Consultation #3: Dr. Roche, restaurant area manager at [facility] agrees with current plan, discussed patient has 2 large-bore IVs at this time. Hypotension been improving she is had 1 additional episode of coffee-ground emesis but no other persistent so far also agreeable with 1 unit packed PRBCs, aware of octreotide and Protonix drips running labs and imaging from today reviewed. Plan for transfer to ICU as soon as a bed is available. Vital Signs Vital signs: Vital Signs - 8 hr 01/19/22 11:48 01/19/22 11:43 01/19/22 12:00 Temperature 98.2 F Pulse Rate 104 H 107 H Respiratory Rate 18 Blood Pressure 93/52 L 106/69 Pulse Oximetry 99 100 Oxygen Delivery Method Room Air 01/19/22 12:00 01/19/22 12:30 01/19/22 12:30 Temperature Pulse Rate 104 H 100 H Respiratory Rate 22 21 Blood Pressure 116/69 Pulse Oximetry 97 99 Oxygen Delivery Method 01/19/22 14:33 01/19/22 14:51 01/19/22 15:10 Temperature 98.5 F 98.9 F 98.9 F Pulse Rate 102 H 98 H 98 H Respiratory Rate 16 21 22 Blood Pressure 118/58 L 113/66 103/65 Pulse Oximetry Oxygen Delivery Method 01/19/22 13:00 01/19/22 13:01 01/19/22 13:01 Temperature Pulse Rate 101 H 101 H Respiratory Rate 22 22 Blood Pressure 118/72 Pulse Oximetry 98 99 Oxygen Delivery Method 01/19/22 13:30 01/19/22 14:00 01/19/22 14:07 Temperature Pulse Rate 102 H 108 H Respiratory Rate 21 22 Blood Pressure 109/76 Pulse Oximetry 99 98 Oxygen Delivery Method 01/19/22 14:07 01/19/22 14:30 01/19/22 14:30 Temperature Pulse Rate 104 H 101 H Respiratory Rate 21 22 Blood Pressure 118/58 L Pulse Oximetry 97 97 Oxygen Delivery Method 01/19/22 14:33 01/19/22 14:33 01/19/22 14:35 Temperature Pulse Rate 102 H Respiratory Rate 22 Blood Pressure 118/59 L 114/62 Pulse Oximetry 98 Oxygen Delivery Method 01/19/22 14:35 01/19/22 14:40 01/19/22 14:40 Temperature Pulse Rate 102 H 102 H Respiratory Rate 21 22 Blood Pressure 116/63 Pulse Oximetry 96 97 Oxygen Delivery Method 01/19/22 15:45 01/19/22 14:45 01/19/22 14:45 Temperature 98.7 F Pulse Rate 101 H 101 H Respiratory Rate 20 22 Blood Pressure 117/71 118/66 Pulse Oximetry 97 Oxygen Delivery Method 01/19/22 14:50 01/19/22 14:50 01/19/22 14:55 Temperature Pulse Rate 99 H Respiratory Rate 22 Blood Pressure 113/66 110/63 Pulse Oximetry 96 Oxygen Delivery Method 01/19/22 14:55 01/19/22 14:57 01/19/22 14:57 Temperature Pulse Rate 99 H 101 H Respiratory Rate 22 22 Blood Pressure 109/66 Pulse Oximetry 96 96 Oxygen Delivery Method 01/19/22 15:00 01/19/22 15:00 01/19/22 15:15 Temperature Pulse Rate 99 H Respiratory Rate 22 Blood Pressure 110/65 103/65 Pulse Oximetry 96 Oxygen Delivery Method 01/19/22 15:15 01/19/22 15:30 01/19/22 15:30 Temperature Pulse Rate 98 H 103 H Respiratory Rate 22 22 Blood Pressure 104/66 Pulse Oximetry 96 96 Oxygen Delivery Method 01/19/22 15:45 01/19/22 15:45 01/19/22 16:10 Temperature 98.8 F Pulse Rate 101 H 103 H Respiratory Rate 22 22 Blood Pressure 111/71 108/72 Pulse Oximetry 95 Oxygen Delivery Method 01/19/22 16:40 01/19/22 16:00 01/19/22 16:00 Temperature 98.7 F Pulse Rate 100 H 102 H Respiratory Rate 21 22 Blood Pressure 104/72 122/73 Pulse Oximetry 95 Oxygen Delivery Method 01/19/22 16:16 01/19/22 16:16 01/19/22 16:30 Temperature Pulse Rate 100 H Respiratory Rate 22 Blood Pressure 115/62 108/72 Pulse Oximetry 97 Oxygen Delivery Method 01/19/22 16:30 Temperature Pulse Rate 103 H Respiratory Rate 22 Blood Pressure Pulse Oximetry 96 Oxygen Delivery Method MDM - Dizziness Lab Data Result diagrams: 01/19/22 11:48 01/19/22 11:48 Labs: Lab Results 01/19/22 01/19/22 01/19/22 Range/Units 11:47 11:48 11:48 WBC 9.2 (4.5-11.0) X10^3/uL RBC 2.54 L (4.0-5.2) X10^6/uL Hgb 7.0 L (12.0-16.0) g/dL Hct 21.2 L (36-46) % MCV 83.2 (80-100) fL MCH 27.3 (26-34) PG MCHC 32.8 (30-36) % RDW 18.4 H (11.6-14.8) % Plt Count 204 (150-400) X10^3/uL Neut % (Auto) 72.7 (50-75) % Lymph % (Auto) 19.5 L (25-40) % Bertie % (Auto) 7.0 (3-14) % Eos % (Auto) 0.1 L (2-4) % Baso % (Auto) 0.7 (0-2) % Neut # (Auto) 6700 (9094-7469) /uL Lymph # (Auto) 1800 (3432-9525) /uL Bertie # (Auto) 600 (0-900) /uL Eos # (Auto) 0 (0-450) /uL Baso # (Auto) 100 (0-100) /uL PT (10.1-12.7) SECONDS INR (0.9-1.3) APTT (26.4-36.2) SECONDS Sodium 137 (137-145) mmol/L Potassium 4.8 (3.4-5.1) mmol/L Chloride 102 (98-107) mmol/L Carbon Dioxide 24 (22-32) mmol/L BUN 22 H (7-17) mg/dL Creatinine 0.60 (0.52-1.04) mg/dL Estimated GFR > 60 (>60) mL/min BUN/Creatinine Ratio 36.7 H (6-22) Glucose 118 H (80-110) mg/dL Lactate (0.7-2.1) mmol/L Calcium 10.2 (8.4-10.2) mg/dL Total Bilirubin 1.8 H (0.2-1.3) mg/dL AST 589 H (14-36) IU/L ALT 246 H (<35) IU/L Alkaline Phosphatase 73 (38-126) U/L Ammonia (9-30) umol/L Total Protein 6.7 (6.3-8.2) g/dL Albumin 3.3 L (3.5-5.0) g/dL Globulin 3.4 (1.7-4.1) g/dL Albumin/Globulin Ratio 1.0 (1.0-2.8) Lipase 1008 H (23-300) U/L Procalcitonin 0.20 (<0.5) ng/mL Urine Color Urine Appearance Urine pH (4.5-8.0) Ur Specific [place] (1.000-1.035) Urine Protein (Negative) Urine Glucose (UA) (Negative) g/dL Urine Ketones (NEGATIVE) Urine Occult Blood (Negative) Urine Nitrate (Negative) Urine Bilirubin (NEGATIVE) Urine Urobilinogen (0.2) E.U./dL Ur Leukocyte Esterase (NEGATIVE) Urine RBC (0-5/HPF) Urine WBC (0-5/HPF) Ur Squamous Epith Cells (0-5/HPF) Amorphous Sediment Urine Bacteria (None) Hyaline Casts (None) Urine Mucus (Negative) Ur Culture Indicated? Ethyl Alcohol 16 H ( - 10) mg/dL SARS-CoV-2 (PCR) (Negative) Blood Type Antibody Screen Crossmatch 01/19/22 01/19/22 01/19/22 Range/Units 11:48 11:48 11:48 WBC (4.5-11.0) X10^3/uL RBC (4.0-5.2) X10^6/uL Hgb (12.0-16.0) g/dL Hct (36-46) % MCV (80-100) fL MCH (26-34) PG MCHC (30-36) % RDW (11.6-14.8) % Plt Count (150-400) X10^3/uL Neut % (Auto) (50-75) % Lymph % (Auto) (25-40) % Bertie % (Auto) (3-14) % Eos % (Auto) (2-4) % Baso % (Auto) (0-2) % Neut # (Auto) (0118-3022) /uL Lymph # (Auto) (7667-1752) /uL Bertie # (Auto) (0-900) /uL Eos # (Auto) (0-450) /uL Baso # (Auto) (0-100) /uL PT 20.5 H (10.1-12.7) SECONDS INR 1.8 H (0.9-1.3) APTT 36 (26.4-36.2) SECONDS Sodium (137-145) mmol/L Potassium (3.4-5.1) mmol/L Chloride (98-107) mmol/L Carbon Dioxide (22-32) mmol/L BUN (7-17) mg/dL Creatinine (0.52-1.04) mg/dL Estimated GFR (>60) mL/min BUN/Creatinine Ratio (6-22) Glucose (80-110) mg/dL Lactate 4.9 H* (0.7-2.1) mmol/L Calcium (8.4-10.2) mg/dL Total Bilirubin (0.2-1.3) mg/dL AST (14-36) IU/L ALT (<35) IU/L Alkaline Phosphatase (38-126) U/L Ammonia (9-30) umol/L Total Protein (6.3-8.2) g/dL Albumin (3.5-5.0) g/dL Globulin (1.7-4.1) g/dL Albumin/Globulin Ratio (1.0-2.8) Lipase (23-300) U/L Procalcitonin (<0.5) ng/mL Urine Color Urine Appearance Urine pH (4.5-8.0) Ur Specific [place] (1.000-1.035) Urine Protein (Negative) Urine Glucose (UA) (Negative) g/dL Urine Ketones (NEGATIVE) Urine Occult Blood (Negative) Urine Nitrate (Negative) Urine Bilirubin (NEGATIVE) Urine Urobilinogen (0.2) E.U./dL Ur Leukocyte Esterase (NEGATIVE) Urine RBC (0-5/HPF) Urine WBC (0-5/HPF) Ur Squamous Epith Cells (0-5/HPF) Amorphous Sediment Urine Bacteria (None) Hyaline Casts (None) Urine Mucus (Negative) Ur Culture Indicated? Ethyl Alcohol ( - 10) mg/dL SARS-CoV-2 (PCR) (Negative) Blood Type A Positive Antibody Screen Negative Crossmatch See Detail 01/19/22 01/19/22 01/19/22 Range/Units 12:10 12:13 13:10 WBC (4.5-11.0) X10^3/uL RBC (4.0-5.2) X10^6/uL Hgb (12.0-16.0) g/dL Hct (36-46) % MCV (80-100) fL MCH (26-34) PG MCHC (30-36) % RDW (11.6-14.8) % Plt Count (150-400) X10^3/uL Neut % (Auto) (50-75) % Lymph % (Auto) (25-40) % Bertie % (Auto) (3-14) % Eos % (Auto) (2-4) % Baso % (Auto) (0-2) % Neut # (Auto) (8703-2379) /uL Lymph # (Auto) (9428-4013) /uL Bertie # (Auto) (0-900) /uL Eos # (Auto) (0-450) /uL Baso # (Auto) (0-100) /uL PT (10.1-12.7) SECONDS INR (0.9-1.3) APTT (26.4-36.2) SECONDS Sodium (137-145) mmol/L Potassium (3.4-5.1) mmol/L Chloride (98-107) mmol/L Carbon Dioxide (22-32) mmol/L BUN (7-17) mg/dL Creatinine (0.52-1.04) mg/dL Estimated GFR (>60) mL/min BUN/Creatinine Ratio (6-22) Glucose (80-110) mg/dL Lactate (0.7-2.1) mmol/L Calcium (8.4-10.2) mg/dL Total Bilirubin (0.2-1.3) mg/dL AST (14-36) IU/L ALT (<35) IU/L Alkaline Phosphatase (38-126) U/L Ammonia < 9 L (9-30) umol/L Total Protein (6.3-8.2) g/dL Albumin (3.5-5.0) g/dL Globulin (1.7-4.1) g/dL Albumin/Globulin Ratio (1.0-2.8) Lipase (23-300) U/L Procalcitonin (<0.5) ng/mL Urine Color [place] Urine Appearance Sl cloudy Urine pH 6.5 (4.5-8.0) Ur Specific [place] 1.020 (1.000-1.035) Urine Protein 1+ H (Negative) Urine Glucose (UA) Negative (Negative) g/dL Urine Ketones 1+ H (NEGATIVE) Urine Occult Blood Negative (Negative) Urine Nitrate Negative (Negative) Urine Bilirubin Negative (NEGATIVE) Urine Urobilinogen 0.2 (0.2) E.U./dL Ur Leukocyte Esterase Negative (NEGATIVE) Urine RBC None seen (0-5/HPF) Urine WBC 0-1/hpf (0-5/HPF) Ur Squamous Epith Cells 1-5 /hpf (0-5/HPF) Amorphous Sediment 1+ Urine Bacteria None seen (None) Hyaline Casts 1-5/lpf (None) Urine Mucus 2+ H (Negative) Ur Culture Indicated? Cult not indicated Ethyl Alcohol ( - 10) mg/dL SARS-CoV-2 (PCR) Negative (Negative) Blood Type Antibody Screen Crossmatch 01/19/22 01/19/22 Range/Units 13:10 16:20 WBC (4.5-11.0) X10^3/uL RBC (4.0-5.2) X10^6/uL Hgb (12.0-16.0) g/dL Hct (36-46) % MCV (80-100) fL MCH (26-34) PG MCHC (30-36) % RDW (11.6-14.8) % Plt Count (150-400) X10^3/uL Neut % (Auto) (50-75) % Lymph % (Auto) (25-40) % Bertie % (Auto) (3-14) % Eos % (Auto) (2-4) % Baso % (Auto) (0-2) % Neut # (Auto) (3215-3629) /uL Lymph # (Auto) (4421-2925) /uL Bertie # (Auto) (0-900) /uL Eos # (Auto) (0-450) /uL Baso # (Auto) (0-100) /uL PT (10.1-12.7) SECONDS INR (0.9-1.3) APTT (26.4-36.2) SECONDS Sodium (137-145) mmol/L Potassium (3.4-5.1) mmol/L Chloride (98-107) mmol/L Carbon Dioxide (22-32) mmol/L BUN (7-17) mg/dL Creatinine (0.52-1.04) mg/dL Estimated GFR (>60) mL/min BUN/Creatinine Ratio (6-22) Glucose (80-110) mg/dL Lactate 2.7 H (0.7-2.1) mmol/L Calcium (8.4-10.2) mg/dL Total Bilirubin (0.2-1.3) mg/dL AST (14-36) IU/L ALT (<35) IU/L Alkaline Phosphatase (38-126) U/L Ammonia (9-30) umol/L Total Protein (6.3-8.2) g/dL Albumin (3.5-5.0) g/dL Globulin (1.7-4.1) g/dL Albumin/Globulin Ratio (1.0-2.8) Lipase (23-300) U/L Procalcitonin (<0.5) ng/mL Urine Color Urine Appearance Urine pH (4.5-8.0) Ur Specific [place] (1.000-1.035) Urine Protein (Negative) Urine Glucose (UA) (Negative) g/dL Urine Ketones (NEGATIVE) Urine Occult Blood (Negative) Urine Nitrate (Negative) Urine Bilirubin (NEGATIVE) Urine Urobilinogen (0.2) E.U./dL Ur Leukocyte Esterase (NEGATIVE) Urine RBC None seen (0-5/HPF) Urine WBC 0-1/hpf (0-5/HPF) Ur Squamous Epith Cells 1-5 /hpf (0-5/HPF) Amorphous Sediment 1+ Urine Bacteria None seen (None) Hyaline Casts (None) Urine Mucus 1+ H (Negative) Ur Culture Indicated? Cult not indicated Ethyl Alcohol ( - 10) mg/dL SARS-CoV-2 (PCR) (Negative) Blood Type Antibody Screen Crossmatch Urine Dip Bedside Urine Glucose Negative Bedside Urine Bilirubin - Negative Bedside Urine Ketone + 15 Urine Specific [place] 1.025 Bedside Urine Occult Blood - Negative Bedside Urine pH 6.0 Bedside Urine Protein + 30 Bedside Urine Urobilinogen - Negative Bedside Urine Nitrite - Negative Bedside Urine Leukocytes - Negative Esterase Imaging Data US - abdomen: Radiologist's Impression: Close Abdomen Ultrasound (Signed) Ariel Skelton - 01/19/22 Chest X-Ray (Signed) Ariel Skelton - 01/19/22 Chest X-Ray (Signed) López Moulton - 01/02/22 Chest/Abdomen/Pelvis CT (Signed) Andreas Hackett - 11/24/21 Chest X-Ray (Signed) SpencerRufino caballero - 11/24/[address] (Signed) Osvaldo Thakkar - 11/13/21 Wrist X-Ray (Signed) Eladia Baker - 11/06/21 Forearm X-Ray (Signed) SamuelEladia lerner - 11/06/[address] (Signed) VasquezBonilla jones - 11/02/[address] (Signed) VasquezBonilla jones - 11/02/21 Abdomen/Pelvis CT (Signed) AleshaKingston - 10/10/21 Abdomen/Pelvis CT (Signed) Pritesh Rogers - 09/29/21 DI Result CC 04/01/21 Foot X-Ray (Signed) Rufnio Palmer - 03/31/21 Mammogram Screening (Signed) La Sneed - 01/31/21 Chest X-Ray (Signed) Rufino Palmer - 12/05/20 Mammogram, Additional Views (Signed) López Cohn - 02/14/20 Mammogram Screening (Signed) La Sneed - 01/25/20 DI Result CC 12/28/19 EKG Rpt. 06/02/[address] (Signed) Rufino Palmer - 12/27/[address] (Signed) Rufino Palmer - 12/27/18 Cervical Spine MRI (Signed) Rufino Palmer - 12/17/18 Cervical Spine X-Ray (Signed) Jairo Vega - 11/29/18 Mammogram Screening (Signed) John Bynum - 11/17/18 Shoulder X-Ray (Signed) [place] Sneed - 10/27/18 Chest/Abdomen/Pelvis CT (Signed) Gamal Guallpa - 04/23/18 DI Result CC 02/01/18 Launch?[address] [id number] Ultrasound Report Signed Patient: Kristen Castle MR#: [id number] : 1960 Acct:[id number] Age/Sex: 62 / F Date of Service: 01/19/22 Loc: ED Accession Number: [id number] ?? Procedure: US abdomen complete Ordering Provider: Ruth Rodriguez D.O. PROCEDURE:? US ABDOMEN COMPLETE ? INDICATIONS:? ascites, vomiting ? TECHNIQUE:? Real-time scanning was performed of the abdominal and retroperitoneal organs, with image documentation.? ? COMPARISON:? Formerly [facility], CT, CT CHEST ABD PEL W CON, 11/24/2021, 18:28. ? FINDINGS:? ? Liver:? Liver is normal in size and homogeneous in echotexture.? The liver has nodular borders.? There is a possible solid mass in the right lobe measuring 3.7 x 2.4 by 3.2 cm, however this was suboptimally visualized with ultrasound. ? Gallbladder:? Status post cholecystectomy.? ? Biliary ducts:? Intrahepatic bile ducts are non-dilated.? Extrahepatic bile duct caliber measures 3 mm.? Normal is 6-7 mm or less in diameter, or 10 mm or less post-cholecystectomy.? ? Pancreas:? The pancreas is not well seen. ? Spleen:? The spleen is mildly enlarged. ? Kidneys:? Kidneys are normal in size and echotexture.? Right kidney measures 10.3 cm long.? No hydronephrosis or nephrolithiasis.? No solid masses.? ? Aorta:? Not visualized due to overlying bowel. ? Iliacs:? Not visualized due to overlying bowel. ? IVC:? Not visualized due to overlying bowel. ? Miscellaneous:? Free fluid is seen throughout the abdomen, the largest pocket in the left lower quadrant. ? ? IMPRESSION:? 1. Nodular liver consistent with cirrhosis.? The liver is not well evaluated, however there is a possible hyperechoic mass measuring 3.7 x 2.4 x 3.2 cm.? Recommend nonemergent CT liver protocol to better evaluate.? Note that no mass was identified on CT dated 11/24/2021. 2. Mild ascites. 3. Mild splenomegaly.? Dictated by: Ariel Skelton M.D. on 01/19/2022 at 13:48 ? ? Approved by: Ariel Skelton M.D. on 01/19/2022 at 13:52?? Chest x-ray: Radiologist's Impression: [address] [address] XRay Report Signed Patient: Kristen Castle MR#: [id number] : 1960 Acct:[id number] Age/Sex: 62 / F Date of Service: 01/19/22 Loc: ED Accession Number: [id number] ?? Procedure: XR chest 1V Ordering Provider: Ruth Rodriguez D.O. PROCEDURE:? XR CHEST 1V ? INDICATIONS:? suspected sepsis ? TECHNIQUE:? One view of the chest was acquired.? ? COMPARISON:? [facility], CR, XR CHEST 1V, 01/02/2022, 10:56. ? FINDINGS:? ? Surgical changes and devices:? None.? ? Lungs and pleura:? Lungs are clear.? No pleural effusions or pneumothorax.? ? Mediastinum:? Mediastinal contours appear normal.? Heart size is normal.? ? Bones and chest wall:? No suspicious bony lesions.? Overlying soft tissues appear unremarkable.? ? IMPRESSION:? No acute cardiopulmonary abnormality. ? ? Dictated by: Ariel Skelton M.D. on 01/19/2022 at 11:49 ? ? Approved by: Ariel Skelton M.D. on 01/19/2022 at 11:50? ECG Data Attestation: I personally reviewed and interpreted this ECG as follows: Interpretation: Sinus tachycardia rate of 105 PA 204 QRS is 64 and QTC of 637. No acute ST changes. MDM Narrative Medical decision making narrative: This is a 62-year-old female with known esophageal varices who presents with hematemesis overnight into today who has dropped her hemoglobin from 10-7 since December. Patient has had banding in the past she is planned to have banding in February with her configuration consultant in [place]. Patient has known cirrhosis from ETOH abuse and fatty liver. She is afebrile was given octreotide push as well as drip, Rocephin 1 g for her varices. She was type and crossed given small amount of fluids which seemed to improve pressure and transfused. Patient does describe some increasing distention she does not appear to be in respiratory distress require emergent paracentesis but her LFTs are elevated from December to .8 with a 589 AST and a 246 ALT and a lipase of 1000 with negative procalcitonin, normal ammonia but an elevated lactate at 4.9. This was repeated ETOH today was 16 patient does admit to occasional EtOH use. Covid swab is negative. Chest x-ray does not have any acute changes or signs of pulmonary edema. She has not been hypoxic. Attempting to transfer patient. We attempted consultation with Gastroenterology through her usual service at [facility]. There are no beds currently regionally and patients have been boarding for days at a time. 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 Roche to ICU. Patient had 1 unit PRBC on octreotide and protonix gtt. BPs and HR slowly improving. Patient stable for transfer. Critical Care Time Critical Care Time Critical Care Time: Yes Total Critical Care Time: 75 Attestation: The high probability of a clinically significant, sudden or life threatening deterioration of the [cardiac, vascular] system(s) required my full and direct attention, intervention and personal management. The aggregate critical care time was [75] minutes. This time is in addition to time spent performing reported procedures but includes the following: [x] Data Review and interpretation [x] Patient assessment and monitoring of vital signs [x] Documentation [x] Medication orders and management Discharge Plan Departure Patient Disposition: [facility] Clinical Impression: Hematemesis, Anemia, Esophageal varices in cirrhosis Prescriptions: No Action lorazepam 1 mg tablet 1 mg PO DAILY Qty: 30 5RF nortriptyline 25 mg capsule 25 mg PO BEDTIME PRN (Reason: insomnia) Qty: 30 5RF levothyroxine 100 mcg capsule 100 mcg PO DAILY Xifaxan 550 MG tablet 550 mg PO BID Qty: 60 11RF liothyronine [Cytomel] 5 mcg tablet 10 mcg PO DAILY tramadol 50 mg tablet 50 mg PO QID PRN (Reason: pain) Qty: 40 0RF Rx Instructions: Take 1 tab by mouth up to 4x/day as needed for pain Shingrix (PF) 50 mcg/0.5 mL suspension for reconstitution 0.5 ml IM ONCE Qty: 1 0RF Rx Instructions: as a single dose gabapentin 300 mg capsule 300 mg PO QID Qty: 360 3RF Rx Instructions: Take 1 cap up to 4x/day for pain. ferrous sulfate 324 mg (65 mg iron) tablet,delayed release (DR/EC) 324 mg PO DAILY nadolol 20 MG tablet 30 mg PO DAILY lactulose 10 gram/15 mL solution 15 - 30 ml PO 1-2XD Label Comments: take 15 TO 30ML by mouth one to two times a day Referrals: Divina Lopes ARNP [Primary Care Provider] -
[2022-01-19 12:41] LABS: INR 1.8 (0.9-1.3); Prothrombin Time 20.5 SECONDS (10.1-12.7)
[2022-01-19 12:44] LABS: PTT Partial Thromboplastin Tim 36 SECONDS (26.4-36.2)
[2022-01-19 12:45] LABS: Ammonia (NH3) < 9 umol/L (9-30)
[2022-01-19 12:48] LABS: COVID19 -Nasal RAPID Negative (Negative)
--- NOTE | 2022-01-19 13:06 | DI.US.S_ITS ---
PROCEDURE: US ABDOMEN COMPLETE INDICATIONS: ascites, vomiting TECHNIQUE: Real-time scanning was performed of the abdominal and retroperitoneal organs, with image documentation. COMPARISON: [facility], CT, CT CHEST ABD PEL W CON, 11/24/2021, 18:28. FINDINGS: Liver: Liver is normal in size and homogeneous in echotexture. The liver has nodular borders. There is a possible solid mass in the right lobe measuring 3.7 x 2.4 by 3.2 cm, however this was suboptimally visualized with ultrasound. Gallbladder: Status post cholecystectomy. Biliary ducts: Intrahepatic bile ducts are non-dilated. Extrahepatic bile duct caliber measures 3 mm. Normal is 6-7 mm or less in diameter, or 10 mm or less post-cholecystectomy. Pancreas: The pancreas is not well seen. Spleen: The spleen is mildly enlarged. Kidneys: Kidneys are normal in size and echotexture. Right kidney measures 10.3 cm long. No hydronephrosis or nephrolithiasis. No solid masses. Aorta: Not visualized due to overlying bowel. Iliacs: Not visualized due to overlying bowel. IVC: Not visualized due to overlying bowel. Miscellaneous: Free fluid is seen throughout the abdomen, the largest pocket in the left lower quadrant. IMPRESSION: 1. Nodular liver consistent with cirrhosis. The liver is not well evaluated, however there is a possible hyperechoic mass measuring 3.7 x 2.4 x 3.[address] liver protocol to better evaluate. Note that no mass was identified on CT dated 11/24/2021. 2. Mild ascites. 3. Mild splenomegaly. Dictated by: Ariel Skelton M.D. on 01/19/2022 at 13:48 Approved by: Ariel Skelton M.D. on 01/19/2022 at 13:52
[2022-01-19 13:33] LABS: Appearance Urine UA SL CLOUDY; Bilirubin Urine UA NEGATIVE (NEGATIVE); Color Urine UA ORANGE; Glucose Urine UA NEGATIVE (Negative); Ketones Urine UA 1+ (NEGATIVE); Leukocyte Esterase Urine UA NEGATIVE (NEGATIVE); Nitrite Urine UA NEGATIVE (Negative); Occult Blood Urine UA NEGATIVE (Negative); Protein Urine UA 1+ (Negative); Urobilinogen Urine UA 0.2 E.U./dL (0.2)
[2022-01-19 13:34] LABS: Ethanol (ETOH) 16 mg/dL
[2022-01-19] MEDS: OCTREOTIDE 100 MCG/ML VIAL 50 MCG IV (13:39)
[2022-01-19] MEDS: OCTREOTIDE 500 MCG in SODIUM CHLORIDE 0.9% 100 ML 10.1 MCG IV (13:39)
[2022-01-19] MEDS: cefTRIAXone 1,000 MG in SODIUM CHLORIDE 0.9% 100 ML 200 MG IV (13:39)
[2022-01-19 13:45] LABS: Amorphous Sediment Urine 1+; RBC Urine None Seen (0-5/HPF); Squamous Epithelial Cell Urine 1-5 /HPF (0-5/HPF); WBC Urine 0-1/HPF (0-5/HPF); pH Urine UA 6.5 (4.5-8.0)
[2022-01-19 13:46] LABS: Bacteria Urine None Seen; Culture Indicated Urine Cult Not Indicated; Hyaline Casts Urine 1-5/LPF; Mucus Urine 2+ (Negative)
--- NOTE | 2022-01-19 14:00 | PC.NURSE ---
Pt had an episode of vomiting with coffee ground emesis. Dr. Rodriguez informed
[2022-01-19 14:04] LABS: Reflexed Lactate in 2 Hours Y
[2022-01-19] MEDS: PANTOPRAZOLE 40 MG VIAL 80 MG IV (14:05)
[2022-01-19 14:38] LABS: Amorphous Sediment Urine 1+; Bacteria Urine None Seen; RBC Urine None Seen (0-5/HPF); Squamous Epithelial Cell Urine 1-5 /HPF (0-5/HPF); WBC Urine 0-1/HPF (0-5/HPF)
[2022-01-19 14:39] LABS: Culture Indicated Urine Cult Not Indicated; Mucus Urine 1+ (Negative)
[2022-01-19] MEDS: PANTOPRAZOLE 80 MG in SODIUM CHLORIDE 0.9% 100 ML 10 MG IV (15:34)
[2022-01-19 16:43] LABS: Lactate 2HR (Lactic Acid Rflx) 2.7 mmol/L (0.7-2.1)
== END 2022-01-19 17:52 | disposition short-term general hospital (02) ==
PROVIDERS: Emergency Provider Emergency Medicine; PCP Nurse Practitioner
DX: K70.31 Alcoholic cirrhosis of liver with ascites (principal); I85.11 Secondary esophageal varices with bleeding; D64.9 Anemia, unspecified; K92.0 Hematemesis; R79.89 Other specified abnormal findings of blood chemistry; R07.9 Chest pain, unspecified; Z20.822 Contact with and (suspected) exposure to COVID-19
CPT/HCPCS: 36415; 36430; 71045; 76700; 80053; 80320; 81001; 81003; 81015; 82140; 83605; 83690; 84145; 85025; 85610; 85730; 86850; 86900; 86901; 87040; 87635; 93005; 93010; 96361; 96365; 96366; 96367; 96368; 96375; 99285; 99291; 99292; C9803; P9016; C9113; J0696; J2354

== ENCOUNTER 2022-02-02 17:56 | Emergency (ER) | payer OTHER, MEDICAID, SELFPAY ==
[2022-02-02] VITALS (13 sets, daily range): BP systolic 117–159; BP diastolic 72–92; PULSE 86–90; RESP 17–27; TEMP 36.2; O2SAT 92–100
--- NOTE | 2022-02-02 18:34 | ED_ITS ---
HPI - GI Bleed General Chief complaint: GI Bleed Stated complaint: ABD distended, Bleeding issues, ABD PAIN Time Seen by Provider: 02/02/22 18:08 Source: patient Mode of arrival: Ambulatory History of Present Illness HPI Narrative: 62F nonsmoker with history of pancreatitis, cirrhosis, esophageal varices presents with family in the chief complaint of a distended painful abdomen and a large amount of dark and tarry stool yesterday morning. She denies any fever or chills . She feels dizzy, weak and lightheaded and significantly short of breath with even minimal exertion. She was discharged from [facility] about 7-10 days ago after requiring admission for esophageal bleed and had subsequent banding. She is been taking her medications as directed and denies any significant dietary change though she has a decreased appetite. She states she is never had ascites before and never required a paracentesis. Related Data Home Medications Medication Instructions Recorded Confirmed nadolol 20 mg tablet 30 mg PO DAILY 04/23/18 12/16/21 liothyronine 5 mcg tablet (Cytomel) 10 mcg PO DAILY 05/31/18 12/16/21 lactulose 10 gram/15 mL oral 15 - 30 ml PO 1-2XD 12/27/18 12/16/21 solution levothyroxine 100 mcg capsule 100 mcg PO DAILY 12/19/19 12/16/21 ferrous sulfate 324 mg (65 mg 324 mg PO DAILY 10/09/21 12/16/21 iron) tablet,delayed release Previous Rx's Medication Instructions Recorded rifaximin 550 mg tablet (Xifaxan) 550 mg PO BID #60 tabs 09/16/16 varicella-zoster glycoE [id number] 0.5 ml IM ONCE #1 ea 03/12/21 adj(PF) 50 mcg/0.5 mL IM susp, kit (Shingrix (PF)) gabapentin 300 mg capsule 300 mg PO QID #360 caps 04/25/21 lorazepam 1 mg tablet 1 mg PO DAILY #30 tabs 08/16/21 nortriptyline 25 mg capsule 25 mg PO BEDTIME PRN insomnia #30 08/16/21 caps tramadol 50 mg tablet 50 mg PO QID PRN pain #40 tabs 11/14/21 Allergies Allergy/AdvReac Type Severity Reaction Status Date / Time No Known Drug Allergies Allergy Verified 01/02/22 10:28 Review of Systems Review of Systems Narrative: GENERAL: see HPI HEENT: Denies sinus pain, ear pain, sore throat, difficulty swallowing, dizziness. RESPIRATORY: see HPI CARDIOVASCULAR: Denies chest pain, palpitations, orthopnea, edema, GASTROINTESTINAL: see HPI : Denies dysuria, frequency, incontinence, hematuria, urinary retention. MUSCULOSKELETAL: denies weakness, joint pain, or bony pain SKIN: Denies rash, skin lesions, or other NEUROLOGIC: Denies weakness, headache, numbness, change in speech, confusion, seizures, incoordination. PSYCHIATRIC: No concerning psychosocial issues. 12 point review of systems is negative except for those stated above Patient History Medical History Alcohol use disorder, severe, in early remission Anxiety Ascites due to alcoholic cirrhosis Cardiac arrhythmia Chicken pox Cirrhosis (2012) Coagulation disorder (2012) Depression Eczema (2014) EV (esophageal varices) (10/2015) GERD (gastroesophageal reflux disease) GI bleeding (2015) Hemorrhoids, internal History of alcohol abuse (12/27/15) History of blood transfusion (10/2015) History of heavy periods (2014) Hypercalcemia Hypertension Hypothyroidism Intermittent palpitations (04/2019) Measles Mumps Nonalcoholic fatty liver disease Ovarian cyst (2012) Painful menstrual periods (2012) Pancreatitis Portal hypertensive gastropathy (05/2015) Psoriasis (2014) PTSD (post-traumatic stress disorder) (1999) SBO (small bowel obstruction) Shortness of breath Weight gain Surgical History H/O bilateral oophorectomy History of appendectomy History of cholecystectomy History of esophagogastroduodenoscopy (EGD) (01/2009) History of esophagogastroduodenoscopy (EGD) (05/2015) History of inguinal hernia repair Status post appendectomy Status post colonoscopy (01/2009) Status post hernia repair Status post hysteroscopy (06/17/11) Status post laparoscopic supracervical hysterectomy (08/25/16) Family History Grandfather Heart disease CA (myocardial infarction) Grandmother Alcoholism Father No problems noted. Mother No problems noted. Grandfather Heart disease Grandmother Colon cancer Brother No problems noted. Social History Smoking Status: Never smoker alcohol intake: current Smoking Status: Never smoker alcohol intake frequency: holidays/special occasions only Substance Use Type: does not use Exam Narrative Exam Narrative: GENERAL: [62] year old patient appears stated age. Well-developed patient, in mild distress. HEAD: Atraumatic. Normocephalic. EYES: Pale conjunctivae Pupils equal round and reactive. Extraocular motions intact. No scleral icterus. No injection or drainage. ENT: Nose without bleeding, purulent drainage. Throat without erythema, tonsilla r hypertrophy or exudate. Airway patent. NECK: Trachea midline. Non tender CARDIOVASCULAR: Regular rate and rhythm without murmurs, gallops, or rubs. RESPIRATORY: Clear to auscultation. Breath sounds equal bilaterally. No wheezes, rales, or rhonchi. GASTROINTESTINAL: Abdomen firm distended with suspected ascites, no warmth, erythema, generalized tenderness, distant bowel sounds throughout RECTAL: minimal dark stool, heme POS EXTREMITIES: No edema or joint tenderness. BACK: Nontender without deformity or crepitance. No flank tenderness. NEURO: AOx3. SKIN: No rash or erythema of visible areas Initial Vital Signs Initial Vital Signs: Vital Signs Temperature 97.2 F L 02/02/22 18:18 Pulse Rate 89 02/02/22 18:18 Respiratory Rate 24 02/02/22 18:18 Blood Pressure 159/92 H 02/02/22 18:18 Pulse Oximetry 100 02/02/22 18:18 Oxygen Delivery Method 02/02/22 18:18 Procedures Paracentesis Time Out Performed: Yes Local Anesthetic: lidocaine 2% Amount of anesthesia used (mL): 6 Fluid: clear Post Procedure Exam: awake, alert, normal BP, normal HR and normal SpO2 Patient Tolerated Procedure: Well Complications: none Course Course Course Narrative: Wallace's Discriminant Function for Alcoholic Hepatitis from [facility] on 02/03/2022 All calculations should be rechecked by clinician prior to use RESULT SUMMARY: 18.3 points Good Prognosis. Discriminant Function > 32 points indicates poor prognosis and patient may benefit from glucocorticoid therapy. INPUTS: PT ?> 15.7 sec PT control/reference level ?> 12 sec Total bilirubin ?> 1.3 mg/dL Additional Information: MELD Score (Model For End-Stage Liver Disease) (12 and older) from [facility] on 02/03/2022 All calculations should be rechecked by clinician prior to use RESULT SUMMARY: 11 points MELD Score (2016)* 6.0% Estimated 3-Month Mortality INPUTS: Dialysis at least twice in the past week ?> 0 = No Creatinine ?> 0.67 mg/dL Bilirubin ?> 1.3 mg/dL INR ?> 1.4 Sodium ?> 138 mEq/L Orders Ordered: ED Orders 02/02/22 18:52 COVID19 -Nasal RAPID/Pre-Proc Stat Type and Screen Stat 02/02/22 19:45 Urinalysis and Microscopic Stat 02/02/22 23:42 HH [Hemoglobin and Hematocrit] Stat 02/03/22 00:00 Albumin Body Fluid Stat Amylase Body Fluid Stat Body Fluid Culture Stat Cell Count w Diff Body Fluid Stat Glucose Body Fluid Stat LDH Body Fluid Stat Total Protein Body Fluid Stat Octreotide Acetate 500 mcg/ (Sodium Chloride) 101 mls @ 5.05 mls/hr IV CONT AGNIESZKA; Protocol Last Admin: 02/02/22 19:10 Dose: 25 mcg/hr, 5.05 mls/hr Documented By: BS Discontinued Medications Hydromorphone HCl (Hydromorphone 0.5 Mg Inj) 0.5 mg IV NOW ONE Stop: 02/02/22 18:41 Last Admin: 02/02/22 18:49 Dose: 0.5 mg Documented By: GERA Ceftriaxone Sodium 2,000 mg/ (Sodium Chloride) 100 mls @ 200 mls/hr IV NOW ONE Stop: 02/03/22 01:43 Last Admin: 02/03/22 02:03 Dose: 200 mls/hr Documented By: EB Lidocaine HCl (Lidocaine 2% Inj Mdv) 1 ml SUBCUT NOW ONE Stop: 02/02/22 22:20 Last Admin: 02/02/22 22:34 Dose: 1 ml Documented By: BS Octreotide Acetate (Octreotide 100 Mcg/Ml Vial) 50 mcg IV NOW ONE Stop: 02/02/22 18:41 Last Admin: 02/02/22 19:09 Dose: 50 mcg Documented By: BS Ondansetron HCl (Ondansetron 4 Mg/2 Ml Inj) 4 mg IV NOW ONE Stop: 02/02/22 18:41 Last Admin: 02/02/22 18:49 Dose: 4 mg Documented By: AMU Pantoprazole Sodium (Pantoprazole 40 Mg Vial) 40 mg IV NOW ONE Stop: 02/02/22 18:36 Last Admin: 02/02/22 18:49 Dose: 40 mg Documented By: AMU Consultations Consultation #1: discussed with Dr. Nicholas (GI) at [facility]. Happy with our diagnostic and therapeutic approach thusfar, requests ABX and transfer w/admission to hospitalist service Dr. Moulton (Hospitalist) happy to accept. awaiting call with bed info Vital Signs Vital signs: Vital Signs - 8 hr 02/02/22 20:00 02/02/22 20:00 02/02/22 20:30 Pulse Rate 87 Respiratory Rate Blood Pressure 122/78 117/76 Pulse Oximetry 94 02/02/22 20:30 02/02/22 21:00 02/02/22 21:00 Pulse Rate 87 90 Respiratory Rate 23 24 Blood Pressure 126/81 Pulse Oximetry 95 94 02/02/22 21:30 02/02/22 21:30 02/02/22 22:00 Pulse Rate 90 Respiratory Rate 27 H Blood Pressure 123/84 130/77 Pulse Oximetry 95 02/02/22 22:00 02/02/22 22:30 02/02/22 22:30 Pulse Rate 89 89 Respiratory Rate 25 H 24 Blood Pressure 123/81 Pulse Oximetry 95 94 02/02/22 23:00 02/02/22 23:00 02/02/22 23:30 Pulse Rate 87 Respiratory Rate 20 Blood Pressure 128/84 122/81 Pulse Oximetry 95 02/02/22 23:30 02/03/22 00:00 02/03/22 00:00 Pulse Rate 87 87 Respiratory Rate 17 17 Blood Pressure 135/91 H Pulse Oximetry 95 96 02/03/22 00:15 02/03/22 00:15 02/03/22 00:30 Pulse Rate 86 Respiratory Rate 19 Blood Pressure 118/84 124/81 Pulse Oximetry 96 02/03/22 00:30 02/03/22 00:45 02/03/22 00:45 Pulse Rate 87 85 Respiratory Rate 24 17 Blood Pressure 126/78 Pulse Oximetry 95 95 02/03/22 01:15 02/03/22 01:15 Pulse Rate 85 Respiratory Rate Blood Pressure 117/72 Pulse Oximetry MDM - GI Bleed Lab Data Result diagrams: 02/02/22 23:42 02/02/22 18:33 Labs: Lab Results 02/02/22 02/02/22 02/02/22 Range/Units 18:33 18:33 18:33 WBC 6.1 (4.5-11.0) X10^3/uL RBC 3.15 L (4.0-5.2) X10^6/uL Hgb 8.3 L (12.0-16.0) g/dL Hct 25.3 L (36-46) % MCV 80.6 (80-100) fL MCH 26.4 (26-34) PG MCHC 32.8 (30-36) % RDW 18.6 H (11.6-14.8) % Plt Count 201 (150-400) X10^3/uL Neut % (Auto) 59.7 (50-75) % Lymph % (Auto) 26.4 (25-40) % [place] % (Auto) 9.8 (3-14) % Eos % (Auto) 2.9 (2-4) % Baso % (Auto) 1.2 (0-2) % Neut # (Auto) 3700 (9664-3889) /uL Lymph # (Auto) 1600 (7453-3013) /uL [place] # (Auto) 600 (0-900) /uL Eos # (Auto) 200 (0-450) /uL Baso # (Auto) 100 (0-100) /uL PT 15.7 H (10.1-12.7) SECONDS INR 1.4 H (0.9-1.3) Sodium 138 (137-145) mmol/L Potassium 3.3 L (3.4-5.1) mmol/L Chloride 109 H (98-107) mmol/L Carbon Dioxide 23 (22-32) mmol/L BUN 11 (7-17) mg/dL Creatinine 0.67 (0.52-1.04) mg/dL Estimated GFR > 60 (>60) mL/min BUN/Creatinine Ratio 16.4 (6-22) Glucose 127 H (80-110) mg/dL Lactate (0.7-2.1) mmol/L Calcium 8.9 (8.4-10.2) mg/dL Magnesium 1.4 L (1.6-2.3) mg/dL Total Bilirubin 1.3 (0.2-1.3) mg/dL AST 102 H (14-36) IU/L ALT 53 H (<35) IU/L Alkaline Phosphatase 110 (38-126) U/L Total Protein 7.2 (6.3-8.2) g/dL Albumin 3.3 L (3.5-5.0) g/dL Globulin 3.9 (1.7-4.1) g/dL Albumin/Globulin Ratio 0.8 L (1.0-2.8) Lipase 960 H (23-300) U/L Urine Color Urine Appearance Urine pH (4.5-8.0) Ur Specific [place] (1.000-1.035) Urine Protein (Negative) Urine Glucose (UA) (Negative) g/dL Urine Ketones (NEGATIVE) Urine Occult Blood (Negative) Urine Nitrate (Negative) Urine Bilirubin (NEGATIVE) Urine Urobilinogen (0.2) E.U./dL Ur Leukocyte Esterase (NEGATIVE) Urine RBC (0-5/HPF) Urine WBC (0-5/HPF) Ur Squamous Epith Cells (0-5/HPF) Amorphous Sediment Urine Bacteria (None) Ur Culture Indicated? Fluid Color Fluid Appearance Fluid RBC /uL Fld Tot Nucleated Cell /uL Fluid Polynuclear WBCs % Fluid Mononuclear WBCs % Fluid Eosinophils Fluid Other Cells Body Fluid Clot Fluid Glucose mg/dL Fluid Total Protein g/dL Fluid Albumin g/dL Fluid LDH U/L Fluid Amylase IU/L SARS-CoV-2 (PCR) (Negative) Blood Type Antibody Screen 02/02/22 02/02/22 02/02/22 Range/Units 18:33 18:52 18:52 WBC (4.5-11.0) X10^3/uL RBC (4.0-5.2) X10^6/uL Hgb (12.0-16.0) g/dL Hct (36-46) % MCV (80-100) fL MCH (26-34) PG MCHC (30-36) % RDW (11.6-14.8) % Plt Count (150-400) X10^3/uL Neut % (Auto) (50-75) % Lymph % (Auto) (25-40) % [place] % (Auto) (3-14) % Eos % (Auto) (2-4) % Baso % (Auto) (0-2) % Neut # (Auto) (5512-9963) /uL Lymph # (Auto) (4747-1519) /uL [place] # (Auto) (0-900) /uL Eos # (Auto) (0-450) /uL Baso # (Auto) (0-100) /uL PT (10.1-12.7) SECONDS INR (0.9-1.3) Sodium (137-145) mmol/L Potassium (3.4-5.1) mmol/L Chloride (98-107) mmol/L Carbon Dioxide (22-32) mmol/L BUN (7-17) mg/dL Creatinine (0.52-1.04) mg/dL Estimated GFR (>60) mL/min BUN/Creatinine Ratio (6-22) Glucose (80-110) mg/dL Lactate 2.6 H (0.7-2.1) mmol/L Calcium (8.4-10.2) mg/dL Magnesium (1.6-2.3) mg/dL Total Bilirubin (0.2-1.3) mg/dL AST (14-36) IU/L ALT (<35) IU/L Alkaline Phosphatase (38-126) U/L Total Protein (6.3-8.2) g/dL Albumin (3.5-5.0) g/dL Globulin (1.7-4.1) g/dL Albumin/Globulin Ratio (1.0-2.8) Lipase (23-300) U/L Urine Color Urine Appearance Urine pH (4.5-8.0) Ur Specific [place] (1.000-1.035) Urine Protein (Negative) Urine Glucose (UA) (Negative) g/dL Urine Ketones (NEGATIVE) Urine Occult Blood (Negative) Urine Nitrate (Negative) Urine Bilirubin (NEGATIVE) Urine Urobilinogen (0.2) E.U./dL Ur Leukocyte Esterase (NEGATIVE) Urine RBC (0-5/HPF) Urine WBC (0-5/HPF) Ur Squamous Epith Cells (0-5/HPF) Amorphous Sediment Urine Bacteria (None) Ur Culture Indicated? Fluid Color Fluid Appearance Fluid RBC /uL Fld Tot Nucleated Cell /uL Fluid Polynuclear WBCs % Fluid Mononuclear WBCs % Fluid Eosinophils Fluid Other Cells Body Fluid Clot Fluid Glucose mg/dL Fluid Total Protein g/dL Fluid Albumin g/dL Fluid LDH U/L Fluid Amylase IU/L SARS-CoV-2 (PCR) Negative (Negative) Blood Type A Positive Antibody Screen Negative 02/02/22 02/02/22 02/02/22 Range/Units 19:45 21:09 23:42 WBC (4.5-11.0) X10^3/uL RBC (4.0-5.2) X10^6/uL Hgb 8.0 L (12.0-16.0) g/dL Hct 24.7 L (36-46) % MCV (80-100) fL MCH (26-34) PG MCHC (30-36) % RDW (11.6-14.8) % Plt Count (150-400) X10^3/uL Neut % (Auto) (50-75) % Lymph % (Auto) (25-40) % [place] % (Auto) (3-14) % Eos % (Auto) (2-4) % Baso % (Auto) (0-2) % Neut # (Auto) (8460-4540) /uL Lymph # (Auto) (1703-0452) /uL [place] # (Auto) (0-900) /uL Eos # (Auto) (0-450) /uL Baso # (Auto) (0-100) /uL PT (10.1-12.7) SECONDS INR (0.9-1.3) Sodium (137-145) mmol/L Potassium (3.4-5.1) mmol/L Chloride (98-107) mmol/L Carbon Dioxide (22-32) mmol/L BUN (7-17) mg/dL Creatinine (0.52-1.04) mg/dL Estimated GFR (>60) mL/min BUN/Creatinine Ratio (6-22) Glucose (80-110) mg/dL Lactate 1.4 (0.7-2.1) mmol/L Calcium (8.4-10.2) mg/dL Magnesium (1.6-2.3) mg/dL Total Bilirubin (0.2-1.3) mg/dL AST (14-36) IU/L ALT (<35) IU/L Alkaline Phosphatase (38-126) U/L Total Protein (6.3-8.2) g/dL Albumin (3.5-5.0) g/dL Globulin (1.7-4.1) g/dL Albumin/Globulin Ratio (1.0-2.8) Lipase (23-300) U/L Urine Color Yellow Urine Appearance Clear Urine pH 7.0 (4.5-8.0) Ur Specific [place] 1.015 (1.000-1.035) Urine Protein Negative (Negative) Urine Glucose (UA) Trace H (Negative) g/dL Urine Ketones Negative (NEGATIVE) Urine Occult Blood Negative (Negative) Urine Nitrate Negative (Negative) Urine Bilirubin Negative (NEGATIVE) Urine Urobilinogen 0.2 (0.2) E.U./dL Ur Leukocyte Esterase Negative (NEGATIVE) Urine RBC None seen (0-5/HPF) Urine WBC 0-1/hpf (0-5/HPF) Ur Squamous Epith Cells 1-5 /hpf (0-5/HPF) Amorphous Sediment 1+ Urine Bacteria None seen (None) Ur Culture Indicated? Cult not indicated Fluid Color Fluid Appearance Fluid RBC /uL Fld Tot Nucleated Cell /uL Fluid Polynuclear WBCs % Fluid Mononuclear WBCs % Fluid Eosinophils Fluid Other Cells Body Fluid Clot Fluid Glucose mg/dL Fluid Total Protein g/dL Fluid Albumin g/dL Fluid LDH U/L Fluid Amylase IU/L SARS-CoV-2 (PCR) (Negative) Blood Type Antibody Screen 02/03/22 02/03/22 Range/Units 00:00 00:00 WBC (4.5-11.0) X10^3/uL RBC (4.0-5.2) X10^6/uL Hgb (12.0-16.0) g/dL Hct (36-46) % MCV (80-100) fL MCH (26-34) PG MCHC (30-36) % RDW (11.6-14.8) % Plt Count (150-400) X10^3/uL Neut % (Auto) (50-75) % Lymph % (Auto) (25-40) % [place] % (Auto) (3-14) % Eos % (Auto) (2-4) % Baso % (Auto) (0-2) % Neut # (Auto) (9485-6633) /uL Lymph # (Auto) (1118-0559) /uL [place] # (Auto) (0-900) /uL Eos # (Auto) (0-450) /uL Baso # (Auto) (0-100) /uL PT (10.1-12.7) SECONDS INR (0.9-1.3) Sodium (137-145) mmol/L Potassium (3.4-5.1) mmol/L Chloride (98-107) mmol/L Carbon Dioxide (22-32) mmol/L BUN (7-17) mg/dL Creatinine (0.52-1.04) mg/dL Estimated GFR (>60) mL/min BUN/Creatinine Ratio (6-22) Glucose (80-110) mg/dL Lactate (0.7-2.1) mmol/L Calcium (8.4-10.2) mg/dL Magnesium (1.6-2.3) mg/dL Total Bilirubin (0.2-1.3) mg/dL AST (14-36) IU/L ALT (<35) IU/L Alkaline Phosphatase (38-126) U/L Total Protein (6.3-8.2) g/dL Albumin (3.5-5.0) g/dL Globulin (1.7-4.1) g/dL Albumin/Globulin Ratio (1.0-2.8) Lipase (23-300) U/L Urine Color Urine Appearance Urine pH (4.5-8.0) Ur Specific [place] (1.000-1.035) Urine Protein (Negative) Urine Glucose (UA) (Negative) g/dL Urine Ketones (NEGATIVE) Urine Occult Blood (Negative) Urine Nitrate (Negative) Urine Bilirubin (NEGATIVE) Urine Urobilinogen (0.2) E.U./dL Ur Leukocyte Esterase (NEGATIVE) Urine RBC (0-5/HPF) Urine WBC (0-5/HPF) Ur Squamous Epith Cells (0-5/HPF) Amorphous Sediment Urine Bacteria (None) Ur Culture Indicated? Fluid Color Colorless Fluid Appearance Clear Fluid RBC < 1000 /uL Fld Tot Nucleated Cell 62 /uL Fluid Polynuclear WBCs 7 % Fluid Mononuclear WBCs 93 % Fluid Eosinophils Not Reportable Fluid Other Cells Not Reportable Body Fluid Clot No clots present Fluid Glucose 84 mg/dL Fluid Total Protein < 2.0 g/dL Fluid Albumin < 1.0 g/dL Fluid LDH 177 U/L Fluid Amylase < 30 IU/L SARS-CoV-2 (PCR) (Negative) Blood Type Antibody Screen Imaging Data US - abdomen: Radiologist's Impression: [address] [id number] ReportSigned Patient: Connie Silva JMR#: [id number]: 06/10/1998Acct:[id number]/Sex: 23 / FDate of Service: 02/02/22Loc: EDAccession Number: [id number] Procedure: US abdomen limited Ordering Provider: Dawit Becerril D.O. PROCEDURE: US ABDOMEN LIMITED INDICATIONS: severe epigastric pain, radiation to back TECHNIQUE: Real-time scanning was performed of the abdominal and retroperitoneal organs, with image documentation. COMPARISON: None. FINDINGS: Liver: Liver is enlarged and measures 22.6 cm in length. Diffusely increased liver parenchymal echotexture is seen. No discrete hepatic lesion. Gallbladder: There is no gallstone. No gallbladder wall thickening or pericholecystic fluid. No sonographic Del Rosario sign. Biliary ducts: Intrahepatic bile ducts are non-dilated. Extrahepatic bile duct caliber measures 5.6 mm. Normal is 6-7 mm or less in diameter, or 10 mm or less post-cholecystectomy. Pancreas: Visualized portions of the pancreas are sonographically normal. IMPRESSION: Normal appearing gallbladder. No cholelithiasis or acute cholecystitis. No biliary ductal dilatation. Hepatomegaly and hepatic steatosis. No discrete hepatic lesion. Dictated by: Gamal Guallpa M.D. on 02/02/2022 at 23:12 Approved by: Gamal Guallpa M.D. on 02/02/2022 at 23:14 Critical Care Time Critical Care Time Critical Care Time: Yes Total Critical Care Time: 35 Attestation: The high probability of a clinically significant, sudden or life threatening deterioration of the [GI/CV] system(s) required my full and direct attention, intervention and personal management. The aggregate critical care time was [35] minutes. This time is in addition to time spent performing reported procedures b ut includes the following: [x] Data Review and interpretation [x] Patient assessment and monitoring of vital signs [x] Documentation [x] Medication orders and management Discharge Plan Departure Patient Disposition: [facility] Clinical Impression: End stage liver disease, Acute upper gastrointestinal bleeding, Abdominal ascites Prescriptions: No Action lorazepam 1 mg tablet 1 mg PO DAILY Qty: 30 5RF nortriptyline 25 mg capsule 25 mg PO BEDTIME PRN (Reason: insomnia) Qty: 30 5RF levothyroxine 100 mcg capsule 100 mcg PO DAILY Xifaxan 550 MG tablet 550 mg PO BID Qty: 60 11RF liothyronine [Cytomel] 5 mcg tablet 10 mcg PO DAILY tramadol 50 mg tablet 50 mg PO QID PRN (Reason: pain) Qty: 40 0RF Rx Instructions: Take 1 tab by mouth up to 4x/day as needed for pain Shingrix (PF) 50 mcg/0.5 mL suspension for reconstitution 0.5 ml IM ONCE Qty: 1 0RF Rx Instructions: as a single dose gabapentin 300 mg capsule 300 mg PO QID Qty: 360 3RF Rx Instructions: Take 1 cap up to 4x/day for pain. ferrous sulfate 324 mg (65 mg iron) tablet,delayed release (DR/EC) 324 mg PO DAILY nadolol 20 MG tablet 30 mg PO DAILY lactulose 10 gram/15 mL solution 15 - 30 ml PO 1-2XD Label Comments: take 15 TO 30ML by mouth one to two times a day Referrals: Divina Lopes ARNP [Primary Care Provider] -
--- NOTE | 2022-02-02 18:40 | DI.US.S_ITS ---
PROCEDURE: US ABDOMEN LIMITED INDICATIONS: known cirrhosis, first time ascites, shamika for paracentesis TECHNIQUE: Real-time focused scanning was performed of the abdomen, with image documentation. COMPARISON: [facility], , US ABDOMEN COMPLETE, 01/19/2022, 14:30. FINDINGS: Moderate ascites in all four quadrants. The largest pocket is in the left lower quadrant. This was marked for the clinician prior to paracentesis. IMPRESSION: Moderate ascites. Dictated by: La Sneed M.D. on 02/02/2022 at 20:07 Approved by: La Sneed M.D. on 02/02/2022 at 20:07
[2022-02-02] MEDS: PANTOPRAZOLE 40 MG VIAL IV (18:49)
[2022-02-02] MEDS: ONDANSETRON 4 MG/2 ML INJ IV (18:49)
[2022-02-02] MEDS: HYDROMORPHONE 0.5 MG INJ IV (18:49)
[2022-02-02 18:52] LABS: Add Manual Diff / Slide Review NO; Basophils Absolute Auto 100 /uL (0-100); Basophils Percent Auto 1.2 % (0-2); Eosinophils Absolute Auto 200 /uL (0-450); Eosinophils Percent Auto 2.9 % (2-4); Hematocrit 25.3 % (36-46); Hemoglobin 8.3 g/dL (12.0-16.0); INR 1.4 (0.9-1.3); Lymphocytes Absolute Auto 1600 /uL (1100-4500); Lymphocytes Percent Auto 26.4 % (25-40); Mean Corpuscular HGB Conc 32.8 % (30-36); Mean Corpuscular Hemoglobin 26.4 PG (26-34); Mean Corpuscular Volume 80.6 fL (80-100); Monocytes Absolute Auto 600 /uL (0-900); Monocytes Percent Auto 9.8 % (3-14); Neutrophils Absolute Auto 3700 /uL (1500-7000); Neutrophils Percent Auto 59.7 % (50-75); Platelet Count 201 X10^3/uL (150-400); Prothrombin Time 15.7 SECONDS (10.1-12.7); Red Blood Cell Count 3.15 X10^6/uL (4.0-5.2); Red Cell Distribution Width 18.6 % (11.6-14.8); White Blood Cell Count 6.1 X10^3/uL (4.5-11.0)
[2022-02-02 19:08] LABS: Alanine Aminotransferase 53 IU/L (<35); Albumin 3.3 g/dL (3.5-5.0); Albumin Globulin Ratio 0.8 (1.0-2.8); Alkaline Phosphatase 110 U/L (38-126); Aspartate Aminotransferase 102 IU/L (14-36); BUN Creatinine Ratio 16.4 (6-22); Bilirubin Total 1.3 mg/dL (0.2-1.3); Blood Urea Nitrogen 11 mg/dL (7-17); Calcium 8.9 mg/dL (8.4-10.2); Carbon Dioxide 23 mmol/L (22-32); Chloride 109 mmol/L (98-107); Estimated Glomerular Filt Rate > 60 mL/min (>60); Globulin 3.9 g/dL (1.7-4.1); Glucose 127 mg/dL (80-110); HEMOLYSIS < 15 (0-50); Lactate (Lactic Acid) 2.6 mmol/L (0.7-2.1); Lipase 960 U/L (23-300); Magnesium 1.4 mg/dL (1.6-2.3); Potassium 3.3 mmol/L (3.4-5.1); Sodium 138 mmol/L (137-145); Total Protein 7.2 g/dL (6.3-8.2)
[2022-02-02] MEDS: OCTREOTIDE 100 MCG/ML VIAL 50 MCG IV (19:09)
[2022-02-02] MEDS: OCTREOTIDE 500 MCG in SODIUM CHLORIDE 0.9% 100 ML 5.05 MCG IV (19:10)
[2022-02-02 19:27] LABS: COVID19 -Nasal RAPID Negative (Negative)
[2022-02-02 19:59] LABS: Appearance Urine UA CLEAR; Bilirubin Urine UA NEGATIVE (NEGATIVE); Color Urine UA YELLOW; Glucose Urine UA TRACE g/dL (Negative); Ketones Urine UA NEGATIVE (NEGATIVE); Leukocyte Esterase Urine UA NEGATIVE (NEGATIVE); Nitrite Urine UA NEGATIVE (Negative); Occult Blood Urine UA NEGATIVE (Negative); Protein Urine UA NEGATIVE (Negative); Specific Gravity Urine UA 1.015 (1.000-1.035); Urobilinogen Urine UA 0.2 E.U./dL (0.2)
[2022-02-02 20:10] LABS: Amorphous Sediment Urine 1+; Bacteria Urine None Seen; Culture Indicated Urine Cult Not Indicated; RBC Urine None Seen (0-5/HPF); Squamous Epithelial Cell Urine 1-5 /HPF (0-5/HPF); WBC Urine 0-1/HPF (0-5/HPF)
[2022-02-02 20:45] LABS: Reflexed Lactate in 2 Hours Y
[2022-02-02 21:30] LABS: Lactate 2HR (Lactic Acid Rflx) 1.4 mmol/L (0.7-2.1)
[2022-02-02] MEDS: LIDOCAINE 2% INJ MDV 1 ML SUBCUT (22:34)
[2022-02-03] VITALS (21 sets, daily range): BP systolic 100–146; BP diastolic 69–108; PULSE 75–87; RESP 17–24; O2SAT 94–98
[2022-02-03 00:05] LABS: Hematocrit 24.7 % (36-46)
[2022-02-03 00:23] LABS: Amylase Body Fluid < 30 IU/L; LDH Body Fluid 177 U/L
[2022-02-03 00:24] LABS: Albumin Body Fluid < 1.0 g/dL; Glucose Body Fluid 84 mg/dL; Total Protein Body Fluid < 2.0 g/dL
[2022-02-03 00:30] LABS: Body Fluid Tot Nucleated Cells 62 /uL
[2022-02-03 00:34] LABS: Body Fluid Red Blood Cells < 1000 /uL
[2022-02-03 00:35] LABS: Body Fluid Appearance CLEAR; Body Fluid Clotted? NO CLOTS PRESENT; Body Fluid Color COLORLESS
[2022-02-03 00:47] LABS: Mononuclear WBC Body Fluid 93 %; Polynuclear WBC Body Fluid 7 %
--- NOTE | 2022-02-03 01:02 | PC.NURSE ---
4500mL output from paracentesis. Pt tolerated procedure well, BP remains stable.
[2022-02-03] MEDS: cefTRIAXone 2,000 MG in SODIUM CHLORIDE 0.9% 100 ML 200 MG IV (02:03)
--- NOTE | 2022-02-03 04:04 | PC.NURSE ---
Report given to HIPOLITO Valdez at [facility] in [place]. All questions answered. [facility] to arrive for pt transport around 0500. Pt aware of this and OK with transfer.
--- NOTE | 2022-02-06 16:36 | PC.NURSE ---
Late entry: according to RN caring for patient, Ceftriaxone and Octreotide were infusing upon transfer. Please see transport documentation for further information. End time 0527 for purposes of [facility] documentation.
== END 2022-02-03 05:27 | disposition short-term general hospital (02) ==
PROVIDERS: Emergency Provider Emergency Medicine; PCP Nurse Practitioner
DX: K72.10 Chronic hepatic failure without coma (principal); K92.2 Gastrointestinal hemorrhage, unspecified; R18.8 Other ascites; Z20.822 Contact with and (suspected) exposure to COVID-19
CPT/HCPCS: 36415; 49082; 76705; 80053; 81001; 82042; 82150; 82945; 83605; 83615; 83690; 83735; 84157; 85014; 85018; 85025; 85610; 86850; 86900; 86901; 87070; 87075; 87205; 87635; 89051; 93005; 96365; 96366; 96368; 96375; 99284; 99291; C9803; C9113; J0696; J1170; J2354; J2405

== ENCOUNTER → 2022-02-17 16:16 | Outpatient (CLI) | payer OTHER, MEDICAID, SELFPAY ==
[2022-02-17 17:13] LABS: Add Manual Diff / Slide Review NO; Basophils Absolute Auto 0 /uL (0-100); Basophils Percent Auto 0.3 % (0-2); Eosinophils Absolute Auto 200 /uL (0-450); Eosinophils Percent Auto 3.2 % (2-4); Hematocrit 24.5 % (36-46); Lymphocytes Absolute Auto 900 /uL (1100-4500); Lymphocytes Percent Auto 14.6 % (25-40); Mean Corpuscular HGB Conc 32.8 % (30-36); Mean Corpuscular Hemoglobin 25.1 PG (26-34); Mean Corpuscular Volume 76.6 fL (80-100); Monocytes Absolute Auto 700 /uL (0-900); Monocytes Percent Auto 10.1 % (3-14); Neutrophils Absolute Auto 4700 /uL (1500-7000); Neutrophils Percent Auto 71.8 % (50-75); Platelet Count 161 X10^3/uL (150-400); Red Cell Distribution Width 18.6 % (11.6-14.8); White Blood Cell Count 6.5 X10^3/uL (4.5-11.0)
[2022-02-17 17:33] LABS: Alanine Aminotransferase 31 IU/L (<35); Albumin 3.5 g/dL (3.5-5.0); Albumin Globulin Ratio 0.8 (1.0-2.8); Alkaline Phosphatase 101 U/L (38-126); Aspartate Aminotransferase 76 IU/L (14-36); BUN Creatinine Ratio 18.4 (6-22); Blood Urea Nitrogen 18 mg/dL (7-17); Calcium 8.7 mg/dL (8.4-10.2); Carbon Dioxide 24 mmol/L (22-32); Chloride 105 mmol/L (98-107); Cholesterol 151 mg/dL (140-199); Estimated Glomerular Filt Rate > 60 mL/min (>60); Globulin 4.2 g/dL (1.7-4.1); Glucose 68 mg/dL (80-110); HDL Cholesterol 36 mg/dL (40-60); HEMOLYSIS < 15 (0-50); LDL Cholesterol Calculated 87 mg/dL (<100); Potassium 3.1 mmol/L (3.4-5.1); Sodium 134 mmol/L (137-145); Total Protein 7.7 g/dL (6.3-8.2); Triglycerides 139 mg/dL (35-150)
[2022-02-17 18:11] LABS: Free T3, Triiodothyronine Free 4.57 pg/mL (2.77-5.27); Free T4, Direct Thyroxine 1.38 ng/dL (0.78-2.19)
[2022-02-17 18:24] LABS: Thyroid Stimulating Hormone 4.07 uIU/mL (0.47-4.68)
== END ==
PROVIDERS: PCP Nurse Practitioner; Referring Provider Nurse Practitioner; Visit Provider Nurse Practitioner
DX: D50.0 Iron deficiency anemia secondary to blood loss (chronic) (principal); E03.9 Hypothyroidism, unspecified; F41.9 Anxiety disorder, unspecified; K92.2 Gastrointestinal hemorrhage, unspecified; E78.5 Hyperlipidemia, unspecified; K72.90 Hepatic failure, unspecified without coma
CPT/HCPCS: 36415; 80053; 80061; 84439; 84443; 84481; 85025

== ENCOUNTER → 2022-02-18 15:34 | Outpatient (CLI) | payer OTHER, MEDICAID, SELFPAY ==
[2022-02-18 16:24] LABS: Add Manual Diff / Slide Review NO; Basophils Absolute Auto 0 /uL (0-100); Basophils Percent Auto 0.5 % (0-2); Eosinophils Absolute Auto 200 /uL (0-450); Eosinophils Percent Auto 4.6 % (2-4); Hematocrit 23.9 % (36-46); Hemoglobin 7.7 g/dL (12.0-16.0); Lymphocytes Absolute Auto 900 /uL (1100-4500); Mean Corpuscular HGB Conc 32.3 % (30-36); Mean Corpuscular Hemoglobin 24.8 PG (26-34); Monocytes Absolute Auto 400 /uL (0-900); Monocytes Percent Auto 11.8 % (3-14); Neutrophils Absolute Auto 2200 /uL (1500-7000); Neutrophils Percent Auto 58.1 % (50-75); Platelet Count 144 X10^3/uL (150-400); Red Blood Cell Count 3.11 X10^6/uL (4.0-5.2); White Blood Cell Count 3.8 X10^3/uL (4.5-11.0)
== END ==
PROVIDERS: PCP Nurse Practitioner; Referring Provider Nurse Practitioner; Visit Provider Nurse Practitioner
DX: D50.0 Iron deficiency anemia secondary to blood loss (chronic) (principal)
CPT/HCPCS: 85025

== ENCOUNTER 2022-02-18 22:23 | Emergency (ER) | payer OTHER, MEDICAID, SELFPAY ==
[2022-02-18 22:40] VITALS: BP 114/67; PULSE 85; RESP 18; TEMP 36.6; O2SAT 99; BMI 18.0
[2022-02-18 23:09] LABS: Add Manual Diff / Slide Review NO; Basophils Absolute Auto 0 /uL (0-100); Basophils Percent Auto 0.6 % (0-2); Eosinophils Absolute Auto 300 /uL (0-450); Eosinophils Percent Auto 5.3 % (2-4); Hematocrit 23.4 % (36-46); Hemoglobin 7.6 g/dL (12.0-16.0); Lymphocytes Absolute Auto 1400 /uL (1100-4500); Lymphocytes Percent Auto 26.2 % (25-40); Mean Corpuscular HGB Conc 32.4 % (30-36); Mean Corpuscular Hemoglobin 24.8 PG (26-34); Mean Corpuscular Volume 76.6 fL (80-100); Monocytes Absolute Auto 700 /uL (0-900); Monocytes Percent Auto 12.8 % (3-14); Neutrophils Absolute Auto 2900 /uL (1500-7000); Neutrophils Percent Auto 55.1 % (50-75); Platelet Count 149 X10^3/uL (150-400); Red Blood Cell Count 3.06 X10^6/uL (4.0-5.2); Red Cell Distribution Width 18.8 % (11.6-14.8); White Blood Cell Count 5.2 X10^3/uL (4.5-11.0)
[2022-02-19] VITALS (20 sets, daily range): BP systolic 94–108; BP diastolic 61–76; PULSE 63–75; RESP 14–26; TEMP 36.4–36.9; O2SAT 96–99
--- NOTE | 2022-02-19 02:20 | DI.RAD.S_ITS ---
PROCEDURE: XR THORACIC SPINE 3V INDICATIONS: Fall/pain TECHNIQUE: 3 views of the thoracic spine were acquired. COMPARISON: [facility], CT, CT CHEST ABD PEL W CON, 11/24/2021, 18:28. FINDINGS: Bones: No acute fractures or dislocations. No suspicious bony lesions. 12 pairs of ribs are noted. There is a chronic appearing fracture of the posterior left 11th rib. Mild multilevel degenerative endplate changes are noted. Soft tissues: No paravertebral stripe thickening. Right upper quadrant cholecystectomy clips. IMPRESSION: No acute osseous abnormality. If the symptoms persist, consider cross sectional imaging such as MRI or CT for further assessment. There is no significant discrepancy when compared to the overnight preliminary report. Dictated by: López Cohn M.D. on 02/19/2022 at 8:09 Approved by: López Cohn M.D. on 02/19/2022 at 8:12
--- NOTE | 2022-02-19 02:20 | DI.RAD.S_ITS ---
PROCEDURE: XR LUMBAR SPINE 2-3V INDICATIONS: Fall/pain TECHNIQUE: 3 views of the lumbar spine were acquired. COMPARISON: None. FINDINGS: Bones: 5 [id number] vertebrae are present. There is mild dextroconvex curvature of the lumbar spine. No vertebral body compression fractures. No suspicious bony lesions. Multilevel disc space narrowing and degenerative endplate changes are seen. There is multilevel facet hypertrophy. Soft tissues: Overlying bowel gas pattern is normal. No suspicious soft tissue calcifications. Right upper quadrant cholecystectomy clips are present. IMPRESSION: No acute osseous abnormality. Moderate multilevel spondylosis. If the symptoms persist, consider cross sectional imaging such as MRI or CT for further assessment. There is no significant discrepancy when compared to the overnight preliminary report. Dictated by: López Cohn M.D. on 02/19/2022 at 8:13 Approved by: López Cohn M.D. on 02/19/2022 at 8:14
--- NOTE | 2022-02-19 02:20 | ED.RECABL ---
HPI - Recheck/Abnormal Lab/Rx <Andry Lopez MD - Last Filed: 02/25/22 18:13> General Chief Complaint: Recheck/Abnormal Lab/Rx Stated Complaint: sent by MD for infusion Time Seen by Provider: 02/19/22 01:53 Source: patient Mode of arrival: Ambulatory History of Present Illness HPI narrative: Patient here for transfusion. Primary care provider had blood work done today and noticed hemoglobin is trending downward in the past couple of months. Patient has been getting tired and fatigued. Denies any hematemesis or black or bloody stools. Has not drank alcohol in over 2 months. Patient states her last transfusion was 3 weeks ago at [facility]. Has history of esophageal varices. Patient states and also noted on medical records history of alcohol abuse with ascites. Hemoglobin 7.6. And is symptomatic. Patient also complains of back pain. In the past 2 weeks she had a fall. Fell on her back. No images were done. Primary care physician prescribed her muscle relaxers. Related Data Home Medications Medication Instructions Recorded Confirmed nadolol 20 mg tablet 30 mg PO DAILY 04/23/18 12/16/21 liothyronine 5 mcg tablet (Cytomel) 10 mcg PO DAILY 05/31/18 12/16/21 lactulose 10 gram/15 mL oral 15 - 30 ml PO 1-2XD 12/27/18 12/16/21 solution levothyroxine 100 mcg capsule 100 mcg PO DAILY 12/19/19 12/16/21 furosemide 20 mg tablet 20 mg PO DAILY 02/17/22 02/17/22 spironolactone 50 mg tablet 50 mg PO DAILY 02/17/22 02/17/22 thiamine mononitrate (vit B1) 100 100 mg PO DAILY 02/17/22 02/17/22 mg tablet (Vitamin B-1 (mononitrate)) Previous Rx's Medication Instructions Recorded rifaximin 550 mg tablet (Xifaxan) 550 mg PO BID #60 tabs 09/16/16 varicella-zoster glycoE [id number] 0.5 ml IM ONCE #1 ea 03/12/21 adj(PF) 50 mcg/0.5 mL IM susp, kit (Shingrix (PF)) gabapentin 300 mg capsule 300 mg PO QID #360 caps 04/25/21 tramadol 50 mg tablet 50 mg PO QID PRN pain #40 tabs 11/14/21 cyclobenzaprine 5 mg tablet 5 mg PO TID PRN muscle spasm #30 02/17/22 tabs lorazepam 1 mg tablet 1 mg PO DAILY #30 tabs 02/17/22 naltrexone 50 mg tablet 50 mg PO DAILY #30 tabs 02/17/22 nortriptyline 25 mg capsule 25 mg PO BEDTIME PRN insomnia #90 02/17/22 caps Allergies Allergy/AdvReac Type Severity Reaction Status Date / Time No Known Drug Allergies Allergy Verified 02/17/22 15:28 Review of Systems <Andry Lopez MD - Last Filed: 02/25/22 18:13> Review of Systems Narrative: GENERAL: Denies chills, positive for fatigue, malaise, negative for fever, sweats. HEENT: Denies sinus pain, ear pain, sore throat RESPIRATORY: Denies dyspnea, cough CARDIOVASCULAR: Denies chest pain, palpitations GASTROINTESTINAL: Denies nausea, vomiting, abdominal pain : Denies dysuria, frequency, hematuria MUSCULOSKELETAL: denies muscle or bony pain SKIN: Denies rash, skin lesions NEUROLOGIC: Denies weakness, numbness ROS Unobtainable: All systems reviewed & are unremarkable except as noted in HPI and below Patient History <Andry Lopez MD - Last Filed: 02/25/22 18:13> Medical History (Updated 02/19/22 @ 11:58 by Nichelle Leyva RN) Alcohol use disorder, severe, in early remission Anemia, blood loss Anxiety Ascites due to alcoholic cirrhosis Cardiac arrhythmia Chicken pox Cirrhosis (2012) Coagulation disorder (2012) Depression Eczema (2014) EV (esophageal varices) (10/2015) GERD (gastroesophageal reflux disease) GI bleeding (2015) Hemorrhoids, internal History of alcohol abuse (12/27/15) History of blood transfusion (10/2015) History of heavy periods (2014) Hypercalcemia Hypertension Hypothyroidism Intermittent palpitations (04/2019) Measles Mumps Nonalcoholic fatty liver disease Ovarian cyst (2012) Painful menstrual periods (2012) Pancreatitis Portal hypertensive gastropathy (05/2015) Psoriasis (2014) PTSD (post-traumatic stress disorder) (1999) SBO (small bowel obstruction) Shortness of breath Weight gain Surgical History H/O bilateral oophorectomy History of appendectomy History of cholecystectomy History of esophagogastroduodenoscopy (EGD) (01/2009) History of esophagogastroduodenoscopy (EGD) (05/2015) History of inguinal hernia repair Status post appendectomy Status post colonoscopy (01/2009) Status post hernia repair Status post hysteroscopy (06/17/11) Status post laparoscopic supracervical hysterectomy (08/25/16) Family History Grandfather Heart disease [place] (myocardial infarction) Grandmother Alcoholism Father No problems noted. Mother No problems noted. Grandfather Heart disease Grandmother Colon cancer Brother No problems noted. Social History Smoking Status: Never smoker alcohol intake: current Smoking Status: Never smoker alcohol intake frequency: holidays/special occasions only Substance Use Type: does not use Exam <Andry Lopez MD - Last Filed: 02/25/22 18:13> Narrative Exam Narrative: GENERAL: in no distress, not toxic not dyspneic HEAD: Normocephalic. EYES: Pupils equal round No scleral icterus. Pale conjunctiva ENT: Mucous membranes moist. NECK: Trachea midline. CARDIOVASCULAR: Regular rate and rhythm without murmurs RESPIRATORY: Clear to auscultation. Breath sounds equal bilaterally. No wheezes, rales, or rhonchi. GASTROINTESTINAL: Abdomen soft, non-tender EXTREMITIES: No gross deformities. BACK: No flank tenderness. Mild midline tenderness of the thoracic and lumbar spine. No skin injury or bruising seen. NEURO: AOx4. SKIN: Warm and dry PSYCH: Not anxious, is cooperative Initial Vital Signs Initial Vital Signs: Vital Signs Temperature 97.8 F 02/18/22 22:40 Pulse Rate 85 02/18/22 22:40 Respiratory Rate 18 02/18/22 22:40 Blood Pressure 114/67 02/18/22 22:40 Pulse Oximetry 99 02/18/22 22:40 Oxygen Delivery Method 02/18/22 22:40 <Ruth Rodriguez DO - Last Filed: 02/24/22 04:06> Initial Vital Signs Initial Vital Signs: Vital Signs Temperature 97.8 F 02/18/22 22:40 Pulse Rate 85 02/18/22 22:40 Respiratory Rate 18 02/18/22 22:40 Blood Pressure 114/67 02/18/22 22:40 Pulse Oximetry 99 02/18/22 22:40 Oxygen Delivery Method 02/18/22 22:40 Course <Andry Lopez MD - Last Filed: 02/25/22 18:13> Course Course Narrative: No new issues during course of stay Orders Ordered: Discontinued Medications Baclofen (Baclofen 10 Mg Tablet) 20 mg PO NOW ONE Stop: 02/19/22 04:21 Last Admin: 02/19/22 04:41 Dose: 20 mg Documented By: MARYJO Reevaluation(s) Reevaluation #1: Transfusion has completed. Patient states feels so much better after transfusion. Has been resting comfortably here. No new issues. Return precautions reviewed with her. Encouraged her to continue to abstain from alcohol use. Time: 06:39 Vital Signs Vital signs: Vital Signs - 8 hr 02/19/22 03:12 02/19/22 03:27 02/19/22 04:42 Temperature 97.8 F 98.2 F 98.4 F Pulse Rate 71 67 64 Respiratory Rate 20 20 18 Blood Pressure 95/61 99/61 94/61 Pulse Oximetry 02/19/22 04:51 02/19/22 04:57 02/19/22 05:12 Temperature 98.5 F 98.5 F 97.5 F L Pulse Rate 63 63 69 Respiratory Rate 18 18 20 Blood Pressure 105/66 105/66 101/70 Pulse Oximetry 02/19/22 06:32 02/19/22 02:49 02/19/22 03:00 Temperature 97.8 F Pulse Rate 70 72 75 Respiratory Rate 18 24 23 Blood Pressure 108/76 Pulse Oximetry 99 98 02/19/22 03:12 02/19/22 03:12 02/19/22 03:27 Temperature Pulse Rate 71 Respiratory Rate 18 Blood Pressure 95/61 99/61 Pulse Oximetry 99 02/19/22 03:27 02/19/22 03:30 02/19/22 04:00 Temperature Pulse Rate 69 71 66 Respiratory Rate 22 21 20 Blood Pressure Pulse Oximetry 99 99 99 02/19/22 04:30 02/19/22 04:41 02/19/22 04:41 Temperature Pulse Rate 70 69 Respiratory Rate 14 14 Blood Pressure 94/61 Pulse Oximetry 96 96 02/19/22 04:52 02/19/22 04:52 02/19/22 05:00 Temperature Pulse Rate 71 70 Respiratory Rate 21 21 Blood Pressure 105/66 Pulse Oximetry 98 97 02/19/22 05:13 02/19/22 05:13 02/19/22 05:30 Temperature Pulse Rate 70 65 Respiratory Rate 26 H 22 Blood Pressure 101/70 Pulse Oximetry 97 97 02/19/22 06:00 02/19/22 06:30 02/19/22 06:31 Temperature Pulse Rate 69 69 69 Respiratory Rate 14 18 18 Blood Pressure Pulse Oximetry 96 97 98 02/19/22 06:31 Temperature Pulse Rate Respiratory Rate Blood Pressure 108/76 Pulse Oximetry <Ruth Rodriguez, - Last Filed: 02/24/22 04:06> Orders Ordered: Discontinued Medications Baclofen (Baclofen 10 Mg Tablet) 20 mg PO NOW ONE Stop: 02/19/22 04:21 Last Admin: 02/19/22 04:41 Dose: 20 mg Documented By: MARYJO Vital Signs Vital signs: Vital Signs - 8 hr 02/19/22 03:12 02/19/22 03:27 02/19/22 04:42 Temperature 97.8 F 98.2 F 98.4 F Pulse Rate 71 67 64 Respiratory Rate 20 20 18 Blood Pressure 95/61 99/61 94/61 Pulse Oximetry 02/19/22 04:51 02/19/22 04:57 02/19/22 05:12 Temperature 98.5 F 98.5 F 97.5 F L Pulse Rate 63 63 69 Respiratory Rate 18 18 20 Blood Pressure 105/66 105/66 101/70 Pulse Oximetry 02/19/22 06:32 02/19/22 02:49 02/19/22 03:00 Temperature 97.8 F Pulse Rate 70 72 75 Respiratory Rate 18 24 23 Blood Pressure 108/76 Pulse Oximetry 99 98 02/19/22 03:12 02/19/22 03:12 02/19/22 03:27 Temperature Pulse Rate 71 Respiratory Rate 18 Blood Pressure 95/61 99/61 Pulse Oximetry 99 02/19/22 03:27 02/19/22 03:30 02/19/22 04:00 Temperature Pulse Rate 69 71 66 Respiratory Rate 22 21 20 Blood Pressure Pulse Oximetry 99 99 99 02/19/22 04:30 02/19/22 04:41 02/19/22 04:41 Temperature Pulse Rate 70 69 Respiratory Rate 14 14 Blood Pressure 94/61 Pulse Oximetry 96 96 02/19/22 04:52 02/19/22 04:52 02/19/22 05:00 Temperature Pulse Rate 71 70 Respiratory Rate 21 21 Blood Pressure 105/66 Pulse Oximetry 98 97 02/19/22 05:13 02/19/22 05:13 02/19/22 05:30 Temperature Pulse Rate 70 65 Respiratory Rate 26 H 22 Blood Pressure 101/70 Pulse Oximetry 97 97 02/19/22 06:00 02/19/22 06:30 02/19/22 06:31 Temperature Pulse Rate 69 69 69 Respiratory Rate 14 18 18 Blood Pressure Pulse Oximetry 96 97 98 02/19/22 06:31 Temperature Pulse Rate Respiratory Rate Blood Pressure 108/76 Pulse Oximetry MDM - Recheck/Abnormal Lab/Rx <Andry Lopez MD - Last Filed: 02/25/22 18:13> Differential Diagnosis Differential diagnosis: Likely other (Anemia) Lab Data Result diagrams: 02/18/22 22:55 Labs: Lab Results 02/18/22 02/18/22 Range/Units 22:55 22:55 WBC 5.2 (4.5-11.0) X10^3/uL RBC 3.06 L (4.0-5.2) X10^6/uL Hgb 7.6 L (12.0-16.0) g/dL Hct 23.4 L (36-46) % MCV 76.6 L (80-100) fL MCH 24.8 L (26-34) PG MCHC 32.4 (30-36) % RDW 18.8 H (11.6-14.8) % Plt Count 149 L (150-400) X10^3/uL Neut % (Auto) 55.1 (50-75) % Lymph % (Auto) 26.2 (25-40) % [place] % (Auto) 12.8 (3-14) % Eos % (Auto) 5.3 H (2-4) % Baso % (Auto) 0.6 (0-2) % Neut # (Auto) 2900 (3207-8595) /uL Lymph # (Auto) 1400 (9664-9628) /uL [place] # (Auto) 700 (0-900) /uL Eos # (Auto) 300 (0-450) /uL Baso # (Auto) 0 (0-100) /uL Blood Type A Positive Antibody Screen Negative Crossmatch See Detail Imaging Data X-ray thoracic spine: Radiologist's Impression: No fracture or misalignment identified. Moderate degenerative disc changes X-ray lumbar spine: Radiologist's Impression: No acute abnormality. Degenerative changes primarily of facet joints MDM Narrative Medical decision making narrative: Appropriate for discharge home. Patient requiring blood transfusion for symptomatic acute on chronic anemia. Likely related to chronic disease. Patient denies denies any hematemesis or bloody or black stools. Patient does have provider to follow up with. Return precautions reviewed with her. Not toxic at discharge. Patient has had many transfusions in the past. <Ruth Rodriguez, DO - Last Filed: 02/24/22 04:06> Lab Data Labs: Lab Results 02/18/22 02/18/22 Range/Units 22:55 22:55 WBC 5.2 (4.5-11.0) X10^3/uL RBC 3.06 L (4.0-5.2) X10^6/uL Hgb 7.6 L (12.0-16.0) g/dL Hct 23.4 L (36-46) % MCV 76.6 L (80-100) fL MCH 24.8 L (26-34) PG MCHC 32.4 (30-36) % RDW 18.8 H (11.6-14.8) % Plt Count 149 L (150-400) X10^3/uL Neut % (Auto) 55.1 (50-75) % Lymph % (Auto) 26.2 (25-40) % [place] % (Auto) 12.8 (3-14) % Eos % (Auto) 5.3 H (2-4) % Baso % (Auto) 0.6 (0-2) % Neut # (Auto) 2900 (1904-1574) /uL Lymph # (Auto) 1400 (6583-5636) /uL [place] # (Auto) 700 (0-900) /uL Eos # (Auto) 300 (0-450) /uL Baso # (Auto) 0 (0-100) /uL Blood Type A Positive Antibody Screen Negative Crossmatch See Detail Critical Care Time <Andry Lopez MD - Last Filed: 02/25/22 18:13> Critical Care Time Critical Care Time: Yes Total Critical Care Time: 35 Attestation: Critical Care Time 35 minutes: Critical care time is separate from other billable procedures. This critical care time includes examination patient, re-evaluation after treatment, ordering labs and review of records, and interpretation of data from labs, concern for circulatory failure. Patient requiring blood transfusion Discharge Plan Departure Patient Disposition: Home Clinical Impression: Acute on chronic anemia Instructions: DI for Anemia of Chronic Disease Activity Restrictions/Additional Instructions: See family doctor within a week for re-evaluation. Return if worse if any questions or concerns. Continue to abstain from drinking alcohol. Prescriptions: No Action levothyroxine 100 mcg capsule 100 mcg PO DAILY Xifaxan 550 MG tablet 550 mg PO BID Qty: 60 11RF liothyronine [Cytomel] 5 mcg tablet 10 mcg PO DAILY tramadol 50 mg tablet 50 mg PO QID PRN (Reason: pain) Qty: 40 0RF Rx Instructions: Take 1 tab by mouth up to 4x/day as needed for pain thiamine mononitrate (vit B1) [Vitamin B-1 (mononitrate)] 100 mg tablet 100 mg PO DAILY Label Comments: TAKE 1 TABLET BY MOUTH DAILY spironolactone 50 mg tablet 50 mg PO DAILY furosemide 20 mg tablet 20 mg PO DAILY cyclobenzaprine 5 mg tablet 5 mg PO TID PRN (Reason: muscle spasm) Qty: 30 3RF Rx Instructions: Take 1 tab up to 3x/day as needed for muscle spasms lorazepam 1 mg tablet 1 mg PO DAILY Qty: 30 5RF nortriptyline 25 mg capsule 25 mg PO BEDTIME PRN (Reason: insomnia) Qty: 90 3RF naltrexone 50 mg tablet 50 mg PO DAILY Qty: 30 1RF Rx Instructions: Take 1/2 to 1 tab daily to help curb alcohol cravings. Shingrix (PF) 50 mcg/0.5 mL suspension for reconstitution 0.5 ml IM ONCE Qty: 1 0RF Rx Instructions: as a single dose gabapentin 300 mg capsule 300 mg PO QID Qty: 360 3RF Rx Instructions: Take 1 cap up to 4x/day for pain. nadolol 20 MG tablet 30 mg PO DAILY lactulose 10 gram/15 mL solution 15 - 30 ml PO 1-2XD Label Comments: take 15 TO 30ML by mouth one to two times a day Referrals: Divina Lopes ARNP [Primary Care Provider] - Visit Report Forms: Patient Portal/API <Ruth Rodriguez DO - Last Filed: 02/24/22 04:06> Sign Out Provider Sign Out Attestation: Patient was night seen by myself. Patient discharged prior to arrival for my shift on this date.
[2022-02-19] MEDS: BACLOFEN 10 MG TABLET 20 MG PO (04:41)
== END 2022-02-19 06:46 | disposition home or self-care (01) ==
PROVIDERS: Emergency Provider Emergency Medicine; PCP Nurse Practitioner
DX: D64.9 Anemia, unspecified (principal); M54.9 Dorsalgia, unspecified; W19.XXXA Unspecified fall, initial encounter; D50.0 Iron deficiency anemia secondary to blood loss (chronic)
CPT/HCPCS: 36415; 36430; 72072; 72100; 85025; 86850; 86900; 86901; 99284; 99291; P9016

== ENCOUNTER → 2022-03-05 15:48 | Outpatient (CLI) | payer OTHER, MEDICAID, SELFPAY ==
[2022-03-05 16:21] LABS: Hematocrit 28.8 % (36-46); Hemoglobin 9.5 g/dL (12.0-16.0); Mean Corpuscular HGB Conc 33.1 % (30-36); Mean Corpuscular Hemoglobin 26.3 PG (26-34); Mean Corpuscular Volume 79.5 fL (80-100); Platelet Count 91 X10^3/uL (150-400); Red Blood Cell Count 3.62 X10^6/uL (4.0-5.2); Red Cell Distribution Width 20.5 % (11.6-14.8); Reticulocyte Count, Percent 2.8 % (1.1-2.6); White Blood Cell Count 2.9 X10^3/uL (4.5-11.0)
[2022-03-05 16:45] LABS: HEMOLYSIS < 15 (0-50)
[2022-03-05 16:47] LABS: BUN Creatinine Ratio 23.4 (6-22); Blood Urea Nitrogen 18 mg/dL (7-17); Calcium 9.1 mg/dL (8.4-10.2); Carbon Dioxide 27 mmol/L (22-32); Chloride 104 mmol/L (98-107); Estimated Glomerular Filt Rate > 60 mL/min (>60); Glucose 136 mg/dL (80-110); HEMOLYSIS < 15 (0-50); Potassium 4.1 mmol/L (3.4-5.1); Sodium 136 mmol/L (137-145)
[2022-03-05 17:10] LABS: Neutrophils Absolute Manual 1798 /uL (3000-5900); Total Cells Counted 100
[2022-03-05 17:11] LABS: Anisocytosis 2+
[2022-03-05 17:12] LABS: Rouleaux 1+
[2022-03-05 17:21] LABS: Ferritin 437 ng/mL (11-264)
[2022-03-05 17:53] LABS: Folate 7.8 ng/mL (2.76-20.0); Vitamin B12 867 pg/mL (239-931)
== END ==
PROVIDERS: PCP Nurse Practitioner; Referring Provider Nurse Practitioner; Visit Provider Nurse Practitioner
DX: D50.0 Iron deficiency anemia secondary to blood loss (chronic) (principal)
CPT/HCPCS: 36415; 80048; 82607; 82728; 82746; 83540; 83550; 85025; 85045

== ENCOUNTER 2022-03-05 17:05 | Emergency (ER) | payer OTHER, MEDICAID, SELFPAY ==
[2022-03-05 17:09] VITALS: BP 100/66; PULSE 72; RESP 16; TEMP 36.6; O2SAT 97; BMI 22.3
[2022-03-05 18:40] LABS: Add Manual Diff / Slide Review NO; Basophils Absolute Auto 0 /uL (0-100); Basophils Percent Auto 1.1 % (0-2); Eosinophils Absolute Auto 100 /uL (0-450); Eosinophils Percent Auto 4.7 % (2-4); Hematocrit 28.1 % (36-46); Hemoglobin 9.3 g/dL (12.0-16.0); Lymphocytes Absolute Auto 1000 /uL (1100-4500); Lymphocytes Percent Auto 33.7 % (25-40); Mean Corpuscular HGB Conc 32.9 % (30-36); Mean Corpuscular Hemoglobin 26.2 PG (26-34); Mean Corpuscular Volume 79.6 fL (80-100); Monocytes Absolute Auto 400 /uL (0-900); Monocytes Percent Auto 12.2 % (3-14); Neutrophils Absolute Auto 1500 /uL (1500-7000); Neutrophils Percent Auto 48.3 % (50-75); Platelet Count 92 X10^3/uL (150-400); Red Blood Cell Count 3.53 X10^6/uL (4.0-5.2); Red Cell Distribution Width 21.5 % (11.6-14.8)
[2022-03-05 18:47] LABS: Alanine Aminotransferase 49 IU/L (<35); Albumin 3.3 g/dL (3.5-5.0); Albumin Globulin Ratio 0.8 (1.0-2.8); Alkaline Phosphatase 77 U/L (38-126); Aspartate Aminotransferase 98 IU/L (14-36); BUN Creatinine Ratio 25.4 (6-22); Bilirubin Total 0.8 mg/dL (0.2-1.3); Blood Urea Nitrogen 18 mg/dL (7-17); Carbon Dioxide 26 mmol/L (22-32); Chloride 104 mmol/L (98-107); Estimated Glomerular Filt Rate > 60 mL/min (>60); Globulin 3.9 g/dL (1.7-4.1); Glucose 94 mg/dL (80-110); HEMOLYSIS 17 (0-50); Sodium 136 mmol/L (137-145); Total Protein 7.2 g/dL (6.3-8.2)
[2022-03-05 19:05] LABS: Anisocytosis 2+; Target Cells 1+
[2022-03-05 19:06] LABS: Hypochromasia 2+
--- NOTE | 2022-03-05 19:33 | ED_ITS ---
HPI - Dizziness General Chief Complaint: Dizziness Stated Complaint: states sent by MD for very low BP Time Seen by Provider: 03/05/22 18:44 Mode of arrival: Family Vehicle History of Present Illness HPI Narrative: Patient sent here from primary care office for evaluation of low blood pressure. . Patient denies any chest pain palpitations dyspnea headache abdominal pain. Denies any black or bloody stools. No nausea vomiting or hematemesis. Patient states she was prescribed tizanidine as well as hydrocodone 2 days ago by primary care provider. She sees 2 different providers at the same office. She has been taking both of these tablets twice a day. She did not take it yesterday morning prior to her EGD with [facility]. She is being evaluated routinely for history of esophageal varices. She states they were none. There was no bleeding. No biopsies were taken. She did take these 2 new medications after her procedure. During the procedure however, shortly afterwards, her blood pressure was low postoperatively. Again, she took these 2 new medications the day before though. When she was prescribed them. Today she was getting her iron transfusions and they noted her blood pressure was low. She states she did take these medications this morning. Likely 3-4 hours before her infusion time. Related Data Home Medications Medication Instructions Recorded Confirmed nadolol 20 mg tablet 30 mg PO DAILY 04/23/18 03/03/22 liothyronine 5 mcg tablet (Cytomel) 10 mcg PO DAILY 05/31/18 03/03/22 lactulose 10 gram/15 mL oral 15 - 30 ml PO 1-2XD 12/27/18 03/03/22 solution levothyroxine 100 mcg capsule 100 mcg PO DAILY 12/19/19 03/03/22 furosemide 20 mg tablet 20 mg PO DAILY 02/17/22 03/03/22 spironolactone 50 mg tablet 50 mg PO DAILY 02/17/22 03/03/22 thiamine mononitrate (vit B1) 100 100 mg PO DAILY 02/17/22 03/03/22 mg tablet (Vitamin B-1 (mononitrate)) Previous Rx's Medication Instructions Recorded rifaximin 550 mg tablet (Xifaxan) 550 mg PO BID #60 tabs 09/16/16 lorazepam 1 mg tablet 1 mg PO DAILY #30 tabs 02/17/22 nortriptyline 25 mg capsule 25 mg PO BEDTIME PRN insomnia #90 02/17/22 caps hydrocodone 10 mg-acetaminophen 1 tab PO Q4-6H PRN pain #30 tabs 03/03/22 300 mg tablet pregabalin 50 mg capsule 50 mg PO TID #90 caps 03/03/22 tizanidine 4 mg capsule See Rx Instructions .Route 03/03/22 .COMPLEX #30 caps Allergies Allergy/AdvReac Type Severity Reaction Status Date / Time No Known Drug Allergies Allergy Verified 03/05/22 17:12 Review of Systems Review of Systems Narrative: GENERAL: Denies chills, fatigue, malaise, fever, sweats. HEENT: Denies sinus pain, ear pain, sore throat RESPIRATORY: Denies dyspnea, cough CARDIOVASCULAR: Denies chest pain, palpitations GASTROINTESTINAL: Denies nausea, vomiting, abdominal pain : Denies dysuria, frequency, hematuria MUSCULOSKELETAL: denies muscle or bony pain SKIN: Denies rash, skin lesions NEUROLOGIC: Denies weakness, numbness, positive for dizziness ROS Unobtainable: All systems reviewed & are unremarkable except as noted in HPI and below Patient History Medical History Alcohol use disorder, severe, in early remission Anemia, blood loss Anxiety Ascites due to alcoholic cirrhosis Cardiac arrhythmia Chicken pox Cirrhosis (2012) Coagulation disorder (2012) Depression Eczema (2014) EV (esophageal varices) (10/2015) GERD (gastroesophageal reflux disease) GI bleeding (2015) Hemorrhoids, internal History of alcohol abuse (12/27/15) History of blood transfusion (10/2015) History of heavy periods (2014) Hypercalcemia Hypertension Hypothyroidism Intermittent palpitations (04/2019) Measles Mumps Nonalcoholic fatty liver disease Ovarian cyst (2012) Painful menstrual periods (2012) Pancreatitis Portal hypertensive gastropathy (05/2015) Psoriasis (2014) PTSD (post-traumatic stress disorder) (1999) SBO (small bowel obstruction) Shortness of breath Weight gain Surgical History H/O bilateral oophorectomy History of appendectomy History of cholecystectomy History of esophagogastroduodenoscopy (EGD) (01/2009) History of esophagogastroduodenoscopy (EGD) (05/2015) History of inguinal hernia repair Status post appendectomy Status post colonoscopy (01/2009) Status post hernia repair Status post hysteroscopy (06/17/11) Status post laparoscopic supracervical hysterectomy (08/25/16) Family History Grandfather Heart disease [place] (myocardial infarction) Grandmother Alcoholism Father No problems noted. Mother No problems noted. Grandfather Heart disease Grandmother Colon cancer Brother No problems noted. Social History Smoking Status: Never smoker alcohol intake: current Smoking Status: Never smoker alcohol intake frequency: holidays/special occasions only Substance Use Type: does not use Exam Narrative Exam Narrative: GENERAL: in no distress, not toxic not dyspneic, patient is no distress. Very pleasant. Smiling. HEAD: Normocephalic. EYES: Pupils equal round No scleral icterus. No pale conjunctiva. Conjunctiva is pink ENT: Mucous membranes moist. NECK: Trachea midline. CARDIOVASCULAR: Regular rate and rhythm without murmurs RESPIRATORY: Clear to auscultation. Breath sounds equal bilaterally. No wheezes, rales, or rhonchi. GASTROINTESTINAL: Abdomen soft, non-tender EXTREMITIES: No gross deformities. BACK: No flank tenderness. NEURO: AOx4. SKIN: Warm and dry PSYCH: Not anxious, is cooperative Initial Vital Signs Initial Vital Signs: Vital Signs Temperature 97.8 F 03/05/22 17:09 Pulse Rate 72 03/05/22 17:09 Respiratory Rate 16 03/05/22 17:09 Blood Pressure 100/66 03/05/22 17:09 Pulse Oximetry 97 03/05/22 17:09 Oxygen Delivery Method 03/05/22 17:09 Course Course Course Narrative: During course of stay patient had bright red at per rectum. Strike through her clothing, no syncope. Patient is orthostatic Decision to Admit Date: 03/05/22 Decision to Admit time: 19:59 Orders Ordered: Discontinued Medications Sodium Chloride (Normal Saline 0.9%) 500 mls @ 1,000 mls/hr IV BOLUS ONE Stop: 03/05/22 20:10 Last Infusion: 03/05/22 21:38 Dose: 0 mls/hr Documented By: Admin: 03/05/22 19:54 Dose: 1,000 mls/hr Documented By: DESTINY Pantoprazole Sodium (Pantoprazole 40 Mg Vial) 40 mg IV NOW ONE Stop: 03/05/22 20:53 Last Admin: 03/05/22 21:38 Dose: 40 mg Documented By: DESTINY Reevaluation(s) Reevaluation #1: Patient agrees for admit. Now has bright red blood per rectum. It saturating to her clothing Time: 19:59 Consultations Consultation #1: Spoke with general surgery, Dr. Macedo. No transfusion at this time. No endoscopy. Would like hospitalist admit and re-evaluate in the morning for any procedures or transfusion. Time: 20:51 Consultation #2: Spoke with hospitalist, Dr. Alonzo, will admit Time: 21:35 Vital Signs Vital signs: Vital Signs - 8 hr 03/05/22 19:41 03/05/22 21:48 Pulse Rate 67 Pulse Rate [Orthostatic Lying] 66 Pulse Rate [Orthostatic Sitting] 67 Pulse Rate [Orthostatic Standing] 69 Respiratory Rate 16 Blood Pressure 101/63 Blood Pressure [Orthostatic Lying] 103/66 Blood Pressure [Orthostatic Sitting] 101/68 Blood Pressure [Orthostatic Standing] 79/51 L Pulse Oximetry 100 Oxygen Delivery Method Room Air MDM - Dizziness Differential Diagnosis Differential diagnosis: Likely adverse reaction to drug, benign paroxysmal positional vertigo, orthostatic hypotension, vertebral basilar insufficiency, acute vestibular neuronitis and other (GI bleed) Lab Data Result diagrams: 03/05/22 18:16 03/05/22 18:16 Labs: Lab Results 03/05/22 03/05/22 03/05/22 Range/Units 17:25 18:16 18:16 WBC 3.0 L (4.5-11.0) X10^3/uL RBC 3.53 L (4.0-5.2) X10^6/uL Hgb 9.3 L (12.0-16.0) g/dL Hct 28.1 L (36-46) % MCV 79.6 L (80-100) fL MCH 26.2 (26-34) PG MCHC 32.9 (30-36) % RDW 21.5 H (11.6-14.8) % Plt Count 92 L (150-400) X10^3/uL Neut % (Auto) 48.3 L (50-75) % Lymph % (Auto) 33.7 (25-40) % Jasper % (Auto) 12.2 (3-14) % Eos % (Auto) 4.7 H (2-4) % Baso % (Auto) 1.1 (0-2) % Neut # (Auto) 1500 (5939-5156) /uL Lymph # (Auto) 1000 L (9726-1940) /uL Jasper # (Auto) 400 (0-900) /uL Eos # (Auto) 100 (0-450) /uL Baso # (Auto) 0 (0-100) /uL RBC Morphology See below Hypochromasia 2+ H Anisocytosis 2+ H Target Cells 1+ H Sodium 136 L (137-145) mmol/L Potassium 4.0 (3.4-5.1) mmol/L Chloride 104 (98-107) mmol/L Carbon Dioxide 26 (22-32) mmol/L BUN 18 H (7-17) mg/dL Creatinine 0.71 (0.52-1.04) mg/dL Estimated GFR > 60 (>60) mL/min BUN/Creatinine Ratio 25.4 H (6-22) Glucose 94 (80-110) mg/dL Calcium 9.0 (8.4-10.2) mg/dL Total Bilirubin 0.8 (0.2-1.3) mg/dL AST 98 H (14-36) IU/L ALT 49 H (<35) IU/L Alkaline Phosphatase 77 (38-126) U/L Total Creatine Kinase (30-135) U/L CK-MB (CK-2) CK-MB (CK-2) Rel Index Troponin I (0.01-0.034) ng/mL Total Protein 7.2 (6.3-8.2) g/dL Albumin 3.3 L (3.5-5.0) g/dL Globulin 3.9 (1.7-4.1) g/dL Albumin/Globulin Ratio 0.8 L (1.0-2.8) SARS-CoV-2 (PCR) (Negative) Blood Type A Positive Antibody Screen Negative 03/05/22 03/05/22 Range/Units 18:16 20:13 WBC (4.5-11.0) X10^3/uL RBC (4.0-5.2) X10^6/uL Hgb (12.0-16.0) g/dL Hct (36-46) % MCV (80-100) fL MCH (26-34) PG MCHC (30-36) % RDW (11.6-14.8) % Plt Count (150-400) X10^3/uL Neut % (Auto) (50-75) % Lymph % (Auto) (25-40) % Jasper % (Auto) (3-14) % Eos % (Auto) (2-4) % Baso % (Auto) (0-2) % Neut # (Auto) (9450-9644) /uL Lymph # (Auto) (9183-2843) /uL Jasper # (Auto) (0-900) /uL Eos # (Auto) (0-450) /uL Baso # (Auto) (0-100) /uL RBC Morphology Hypochromasia Anisocytosis Target Cells Sodium (137-145) mmol/L Potassium (3.4-5.1) mmol/L Chloride (98-107) mmol/L Carbon Dioxide (22-32) mmol/L BUN (7-17) mg/dL Creatinine (0.52-1.04) mg/dL Estimated GFR (>60) mL/min BUN/Creatinine Ratio (6-22) Glucose (80-110) mg/dL Calcium (8.4-10.2) mg/dL Total Bilirubin (0.2-1.3) mg/dL AST (14-36) IU/L ALT (<35) IU/L Alkaline Phosphatase (38-126) U/L Total Creatine Kinase 88 (30-135) U/L CK-MB (CK-2) TNP CK-MB (CK-2) Rel Index TNP Troponin I < 0.012 (0.01-0.034) ng/mL Total Protein (6.3-8.2) g/dL Albumin (3.5-5.0) g/dL Globulin (1.7-4.1) g/dL Albumin/Globulin Ratio (1.0-2.8) SARS-CoV-2 (PCR) Negative (Negative) Blood Type Antibody Screen Urine Dip Bedside Urine Glucose Negative Bedside Urine Bilirubin - Negative Bedside Urine Ketone - Negative Urine Specific [place] 1.020 Bedside Urine Occult Blood - Negative Bedside Urine pH 6.0 Bedside Urine Protein - Negative Bedside Urine Urobilinogen +/- 1mg Bedside Urine Nitrite - Negative Bedside Urine Leukocytes - Negative Esterase Imaging Data CT scan - abdomen/pelvis: Radiologist's Impression: [address] [address] [address] Scan Report Signed Patient: Kristen Castle MR#: [id number] : 1960 Acct:[id number] Age/Sex: 62 / F Date of Service: 03/05/22 Loc: ED Accession Number: [id number] ?? Procedure: CT abdomen pelvis w con Ordering Provider: Andry Lopez MD PROCEDURE:? CT ABDOMEN PELVIS W CON ? INDICATIONS:? IV contrast only/rectal bleed ? TECHNIQUE:? After the administration of intravenous contrast, axial sections acquired from the lung bases to the pubic symphysis.? Coronal and sagittal reformats were performed.? For radiation dose reduction, the following was used:? automated exposure control, adjustment of mA and/or kV according to patient size.? ? COMPARISON:? [facility], CT, CT ABDOMEN PELVIS W CON, 10/10/2021, 17:18. ? FINDINGS:? Image quality:? Excellent.? ? Lung bases:? Mild gravitational changes at both lung bases.? Moderate diffuse distal esophageal wall thickening.? No hiatal hernia. Heart:? Cardiomegaly.? No pericardial effusion. ? ABDOMEN: Liver:? Cirrhotic liver morphology with left lobe hypertrophy and nodular hepatic margin. ?Subcentimeter hypodensity in the right hepatic lobe, 09/01.? No definite enhancing lesions. Gallbladder:? Surgically absent.? Biliary ducts:? Mild extrahepatic biliary dilatation measuring up to 1.2 cm.? No intrahepatic biliary dilatation. Pancreas:? Diminutive.? There is irregular, nodular hypodensity in the pancreatic head and uncinate process and a few coarse calcifications in the uncinate process in the tail of the pancreas.? No definite pancreatic ductal dilatation. Spleen:? Enlarged measuring 15 5 cm in craniocaudal dimension. Adrenal Glands:? No nodules. Kidneys and Ureters: Symmetric enhancement.? No nephrolithiasis or hydronephrosis.? No hydroureter. ? Stomach and Bowel:? There is increased fecal impaction in the proximal colon and mild pericolonic inflammation thickening the right pericolic gutter fascia.? Stomach is within normal limits.? Small bowel is relatively decompressed.? The rectum is decompressed and there prominent perirectal varices. Peritoneum:? No extraluminal gas or focal fluid collections.? No significant perihepatic or perisplenic ascites. ? Ventral Wall: ? No hernias.? Abdominal Nodes:? Several shotty retroperitoneal lymph nodes seen.? No mesenteric mass or adenopathy. Vessels:? Aorta and inferior vena cava are normal in size.? Left retroperitoneal varices. ? PELVIS: Pelvic Organs:? The uterus is absent.? Ovarian tissue is not definitely identified. Bladder:? Partially decompressed with a normal wall thickness Pelvic Nodes: No enlarged lymph nodes.? Miscellaneous: No hernias are seen. ? ? ? Bones:? Unremarkable.? IMPRESSION:? ? 1. Fecal impaction in the proximal colon and mild adjacent inflammation suggesting colitis.? No adjacent diverticula.? This may be infectious or inflammatory. ? 2. Diffuse distal esophageal wall thickening.? Consider esophagitis. ? 3. Cirrhotic liver morphology with changes of portal hypertension.? Stable single hepatic hypodensities. ? 4. Findings of chronic pancreatitis and incompletely evaluated cystic changes in the uncinate process, potentially IPMN.? If not previously performed, MR of the pancreas on an outpatient basis is recommended.? ? ? Dictated by: La Sneed M.D. on 03/05/2022 at 20:35 ? ? Approved by: La Sneed M.D. on 03/05/2022 at 20:49 ? ECG Data Interpretation: Sinus rhythm rate [address] elevation or depression MDM Narrative Medical decision making narrative: Appropriate for admission for observation for GI bleed possible endoscopy and transfusion. Reviewed with hospitalist as well as surgeon. Patient agrees for admit. Discharge Plan Departure Patient Disposition: Admitted as Observation Clinical Impression: GI bleeding Admit Date/Time: 03/05/22 22:40 Admit Provider: Wilbert Alonzo
[2022-03-05 19:41] VITALS: BP 101/68; BP 103/66; BP 79/51; PULSE 66; PULSE 67; PULSE 69
[2022-03-05 19:42] LABS: Creatine Kinase 88 U/L (30-135)
--- NOTE | 2022-03-05 19:53 | PC.NURSE ---
Addendum entered by Vidya Bhatt R.N. 03/05/22 19:53: Dr Lopez aware Original Note: Patient up to restroom, reports bright red blood per rectum.
[2022-03-05 19:54] LABS: Troponin I < 0.012 ng/mL (0.01-0.034)
[2022-03-05] MEDS: SODIUM CHLORIDE 0.9% 500 ML 1000 ML IV (19:54)
--- NOTE | 2022-03-05 19:58 | DI.CT.S_ITS ---
PROCEDURE: CT ABDOMEN PELVIS W CON INDICATIONS: IV contrast only/rectal bleed TECHNIQUE: After the administration of intravenous contrast, axial sections acquired from the lung bases to the pubic symphysis. Coronal and sagittal reformats were performed. For radiation dose reduction, the following was used: automated exposure control, adjustment of mA and/or kV according to patient size. COMPARISON: , CT, CT ABDOMEN PELVIS W CON, 10/10/2021, 17:18. FINDINGS: Image quality: Excellent. Lung bases: Mild gravitational changes at both lung bases. Moderate diffuse distal esophageal wall thickening. No hiatal hernia. Heart: Cardiomegaly. No pericardial effusion. ABDOMEN: Liver: Cirrhotic liver morphology with left lobe hypertrophy and nodular hepatic margin. Subcentimeter hypodensity in the right hepatic lobe, 2/20. No definite enhancing lesions. Gallbladder: Surgically absent. Biliary ducts: Mild extrahepatic biliary dilatation measuring up to 1.2 cm. No intrahepatic biliary dilatation. Pancreas: Diminutive. There is irregular, nodular hypodensity in the pancreatic head and uncinate process and a few coarse calcifications in the uncinate process in the tail of the pancreas. No definite pancreatic ductal dilatation. Spleen: Enlarged measuring 15 5 cm in craniocaudal dimension. Adrenal Glands: No nodules. Kidneys and Ureters: Symmetric enhancement. No nephrolithiasis or hydronephrosis. No hydroureter. Stomach and Bowel: There is increased fecal impaction in the proximal colon and mild pericolonic inflammation thickening the right pericolic gutter fascia. Stomach is within normal limits. Small bowel is relatively decompressed. The rectum is decompressed and there prominent perirectal varices. Peritoneum: No extraluminal gas or focal fluid collections. No significant perihepatic or perisplenic ascites. Ventral Wall: No hernias. Abdominal Nodes: Several shotty retroperitoneal lymph nodes seen. No mesenteric mass or adenopathy. Vessels: Aorta and inferior vena cava are normal in size. Left retroperitoneal varices. PELVIS: Pelvic Organs: The uterus is absent. Ovarian tissue is not definitely identified. Bladder: Partially decompressed with a normal wall thickness Pelvic Nodes: No enlarged lymph nodes. Miscellaneous: No hernias are seen. Bones: Unremarkable. IMPRESSION: 1. Fecal impaction in the proximal colon and mild adjacent inflammation suggesting colitis. No adjacent diverticula. This may be infectious or inflammatory. 2. Diffuse distal esophageal wall thickening. Consider esophagitis. 3. Cirrhotic liver morphology with changes of portal hypertension. Stable single hepatic hypodensities. 4. Findings of chronic pancreatitis and incompletely evaluated cystic changes in the uncinate process, potentially IPMN. If not previously performed, MR of the pancreas on an outpatient basis is recommended. Dictated by: La Sneed M.D. on 03/05/2022 at 20:35 Approved by: La Sneed M.D. on 03/05/2022 at 20:49
[2022-03-05 21:07] LABS: COVID19 -Nasal RAPID Negative (Negative)
[2022-03-05] MEDS: PANTOPRAZOLE 40 MG VIAL IV (21:38)
--- NOTE | 2022-03-05 21:46 | PC.NURSE ---
Patient had scope yesterday, no noted bleeding per patient. Patietn reports dizziness and low blood pressure. Has had several transfusions over last few weeks. Patient reports some light bright red bleeding while up to restroom x1.
[2022-03-05 21:48] VITALS: BP 101/63; PULSE 67; RESP 16; O2SAT 100
--- NOTE | 2022-03-05 23:16 | P.CONS_ITS ---
History of Present Illness Consult details Date Patient Seen: 03/05/22 Time Patient Seen: 23:45 Chief complaint: states sent by MD for very low BP Narrative: Ms. Castle is a 62W with PMH cirrhosis, anemia, previous GI bleeding s/p banding who presents to the hospital for low blood pressure.She states she was prescribed tizanidine as well as hydrocodone two days ago for pain. She also had an EGD yesterday at [facility] for known varices which she says showed no bleeding. When she was prescribed them.?Today during iron transfusions and they noted her blood pressure was low.?She did take her blood pressure medications before this. She has a history of GI bleeds, she requires transfusion last earlier this week. She has since not noted any blood in stool or in vomit, or black stool. In the ED workup was done which showed a blood pressure of 100/66. Labs notable for a WBC 3.0, hgb 9.3, plts 92. Creatinin 0.71. While in the ED she had a spoonful size amount of blood. She also had positive orthostatics. CT showed thick esophagus and also fecal stool burdern. Medicine consulted for further evaluation. Meds Home Medications and Allergies Home Medications Medication Instructions Recorded Confirmed Type rifaximin 550 mg tablet (Xifaxan) 550 mg PO BID #60 tabs 09/16/16 03/03/22 Rx nadolol 20 mg tablet 30 mg PO DAILY 04/23/18 03/03/22 History liothyronine 5 mcg tablet (Cytomel) 10 mcg PO DAILY 05/31/18 03/03/22 History lactulose 10 gram/15 mL oral 15 - 30 ml PO 1-2XD 12/27/18 03/03/22 History solution levothyroxine 100 mcg capsule 100 mcg PO DAILY 12/19/19 03/03/22 History furosemide 20 mg tablet 20 mg PO DAILY 02/17/22 03/03/22 History lorazepam 1 mg tablet 1 mg PO DAILY #30 tabs 02/17/22 03/03/22 Rx nortriptyline 25 mg capsule 25 mg PO BEDTIME PRN insomnia #90 02/17/22 03/03/22 Rx caps spironolactone 50 mg tablet 50 mg PO DAILY 02/17/22 03/03/22 History thiamine mononitrate (vit B1) 100 100 mg PO DAILY 02/17/22 03/03/22 History mg tablet (Vitamin B-1 (mononitrate)) hydrocodone 10 mg-acetaminophen 1 tab PO Q4-6H PRN pain #30 tabs 03/03/22 03/03/22 Rx 300 mg tablet pregabalin 50 mg capsule 50 mg PO TID #90 caps 03/03/22 03/03/22 Rx tizanidine 4 mg capsule See Rx Instructions .Route 03/03/22 Rx .COMPLEX #30 caps Allergies Allergy/AdvReac Type Severity Reaction Status Date / Time No Known Drug Allergies Allergy Verified 03/05/22 17:12 Review of Systems Review of Systems Narrative: 14 systems reviewed and negative aside from what is noted in HPI Exam Vital Signs (past 8 hours): - 03/05/22 19:41 03/05/22 21:48 03/06/22 00:43 Pulse Rate 67 Pulse Rate [Orthostatic Lying] 66 75 Pulse Rate [Orthostatic Sitting] 67 75 Pulse Rate [Orthostatic Standing] 69 78 Respiratory Rate 16 Blood Pressure 101/63 Blood Pressure [Orthostatic Lying] 103/66 101/83 Blood Pressure [Orthostatic Sitting] 101/68 107/64 Blood Pressure [Orthostatic Standing] 79/51 L 109/70 Pulse Oximetry 100 Oxygen Delivery Method Room Air Oxygen Delivery Method Room Air Narrative Exam Narrative: GEN: no acute distress HEENT: moist mucous membranes NECK: trachea midline no JVD PULM: clear bilaterally CV: regular rate and rhythm, no murmurs ABD: soft, nontender, nondistended, no organomegaly EXT: warm and well perfused with no edema NEURO: awake, alert oriented with no focal deficits Objective Labs Result Diagrams: 03/05/22 18:16 03/05/22 18:16 Labs: Laboratory Results - last 24 hr 03/05/22 03/05/22 03/05/22 17:25 18:16 18:16 WBC 3.0 L RBC 3.53 L Hgb 9.3 L Hct 28.1 L MCV 79.6 L MCH 26.2 MCHC 32.9 RDW 21.5 H Plt Count 92 L Neut % (Auto) 48.3 L Lymph % (Auto) 33.7 Patrick % (Auto) 12.2 Eos % (Auto) 4.7 H Baso % (Auto) 1.1 Neut # (Auto) 1500 Lymph # (Auto) 1000 L Patrick # (Auto) 400 Eos # (Auto) 100 Baso # (Auto) 0 RBC Morphology See below Hypochromasia 2+ H Anisocytosis 2+ H Target Cells 1+ H Sodium 136 L Potassium 4.0 Chloride 104 Carbon Dioxide 26 BUN 18 H Creatinine 0.71 Estimated GFR > 60 BUN/Creatinine Ratio 25.4 H Glucose 94 Calcium 9.0 Total Bilirubin 0.8 AST 98 H ALT 49 H Alkaline Phosphatase 77 Total Creatine Kinase CK-MB (CK-2) CK-MB (CK-2) Rel Index Troponin I Total Protein 7.2 Albumin 3.3 L Globulin 3.9 Albumin/Globulin Ratio 0.8 L SARS-CoV-2 (PCR) Blood Type A Positive Antibody Screen Negative 03/05/22 03/05/22 18:16 20:13 WBC RBC Hgb Hct MCV MCH MCHC RDW Plt Count Neut % (Auto) Lymph % (Auto) Patrick % (Auto) Eos % (Auto) Baso % (Auto) Neut # (Auto) Lymph # (Auto) Patrick # (Auto) Eos # (Auto) Baso # (Auto) RBC Morphology Hypochromasia Anisocytosis Target Cells Sodium Potassium Chloride Carbon Dioxide BUN Creatinine Estimated GFR BUN/Creatinine Ratio Glucose Calcium Total Bilirubin AST ALT Alkaline Phosphatase Total Creatine Kinase 88 CK-MB (CK-2) TNP CK-MB (CK-2) Rel Index TNP Troponin I < 0.012 Total Protein Albumin Globulin Albumin/Globulin Ratio SARS-CoV-2 (PCR) Negative Blood Type Antibody Screen [facility] Medical History Alcohol use disorder, severe, in early remission Anemia, blood loss Anxiety Ascites due to alcoholic cirrhosis Cardiac arrhythmia Chicken pox Cirrhosis (2012) Coagulation disorder (2012) Depression Eczema (2014) EV (esophageal varices) (10/2015) GERD (gastroesophageal reflux disease) GI bleeding (2015) Hemorrhoids, internal History of alcohol abuse (12/27/15) History of blood transfusion (10/2015) History of heavy periods (2014) Hypercalcemia Hypertension Hypothyroidism Intermittent palpitations (04/2019) Measles Mumps Nonalcoholic fatty liver disease Ovarian cyst (2012) Painful menstrual periods (2012) Pancreatitis Portal hypertensive gastropathy (05/2015) Psoriasis (2014) PTSD (post-traumatic stress disorder) (1999) SBO (small bowel obstruction) Shortness of breath Weight gain Surgical History H/O bilateral oophorectomy History of appendectomy History of cholecystectomy History of esophagogastroduodenoscopy (EGD) (01/2009) History of esophagogastroduodenoscopy (EGD) (05/2015) History of inguinal hernia repair Status post appendectomy Status post colonoscopy (01/2009) Status post hernia repair Status post hysteroscopy (06/17/11) Status post laparoscopic supracervical hysterectomy (08/25/16) Family History Grandfather Heart disease [place] (myocardial infarction) Grandmother Alcoholism Father No problems noted. Mother No problems noted. Grandfather Heart disease Grandmother Colon cancer Brother No problems noted. Tobacco & Substance Use Smoking Status: Never smoker alcohol intake: current Assessment & Plan Assessment & Plan narrative: Ms. Castle is a 62W with PMH cirrhosis, history of GI bleeding, who presents with transient hypotension. She was noted in the ED to have a spoonful sized amount of bright red blood per rectum. ED requested observation. She received protonix and IV fluids. She initially had positive orthostatics but this improved with IV fluids. She was monitored in the ED and had no further bleedin g. She was feeling improved and wishing to go home. She had no vomiting and no abdominal pain. Her low blood pressure is possibly related to new medication effects for pain control. Her hemoglobin appears stable and at baseline. She currently has been observed in the ED and appears stable for discharge. Strict precautions were given to return in case of returned hypotension or bleeding. Time Spent With Patient Critical Care time: I spent a total of [] minutes of critical care time on this patient's care today; this time is exclusive of procedural time.
--- NOTE | 2022-03-06 00:40 | PC.NURSE ---
Patient requesting to leave states she feels better. Repeat orthostatic blood pressures done, Dr Alonzo updated on results
[2022-03-06 00:43] VITALS: BP 101/83; BP 107/64; BP 109/70; PULSE 75; PULSE 78
== END 2022-03-06 01:05 | disposition admitted as inpatient to this hospital (09) ==
LOC: ED 20:00 → AC 03-06 00:45
PROVIDERS: Emergency Medicine; Emergency Provider Emergency Medicine; PCP Nurse Practitioner; Referring Provider Nurse Practitioner
DX: K92.2 Gastrointestinal hemorrhage, unspecified (principal); I95.9 Hypotension, unspecified; Z20.822 Contact with and (suspected) exposure to COVID-19; D50.0 Iron deficiency anemia secondary to blood loss (chronic)
CPT/HCPCS: 36415; 74177; 80048; 80053; 81003; 82550; 82607; 82728; 82746; 83540; 83550; 84484; 85025; 85045; 86850; 86900; 86901; 87635; 93005; 96361; 96365; 96374; 99284; C9803; C9113; J1756; Q9967

== ENCOUNTER → 2022-03-06 12:30 | Outpatient (CLI) | payer OTHER, MEDICAID, SELFPAY ==
--- NOTE | 2022-03-06 | DI.MG.S_ITS ---
BILATERAL DIGITAL SCREENING MAMMOGRAM 3D/2D WITH CAD: 03/06/2022 CLINICAL: Routine screening. Family history of breast cancer. Comparison is made to exams dated: 01/31/2021 mammogram, 02/14/2020 mammogram, and 01/25/2020 mammogram - [facility]. Both breasts are heterogeneously dense, which may obscure small masses (category c / 51-75% glandular tissue). Current study was also evaluated with a Computer Aided Detection (CAD) system. There is an asymmetry in the left breast middle depth superior region seen on the mediolateral oblique view only. No other significant masses, calcifications, or other findings are seen in either breast. IMPRESSION: INCOMPLETE: NEEDS ADDITIONAL IMAGING EVALUATION The asymmetry in the left breast is indeterminate. Additional views with possible ultrasound are recommended. Based on Tyrer-Cuzick model (a risk assessment model), the patient's lifetime risk is 23.8% and her 10 year risk is 10.9%. If a patient has an elevated risk, a more comprehensive evaluation should be considered and/or a referral to a genetic counselor. The [place] [employer], [employer], and NCCN Guidelines advise the consideration of Breast MRI as an adjunct to screening mammography in patients whose Lifetime risk to develop breast cancer is 20% or higher. This exam was interpreted at Station ID: [id number]. NOTE: For mammograms, a report in lay terms will be sent to the patient. Approximately 15% of breast malignancies will not be visualized mammographically. In the management of a palpable breast mass, a negative mammogram must not discourage biopsy of a clinically suspicious lesion. Electronically Signed By: Tonia chambers/shayan:03/06/2022 14:15:41 letter sent: Additional Imaging Needed ACR BI-RADS Category 0: Incomplete 3340F
== END ==
PROVIDERS: PCP Nurse Practitioner; Referring Provider Nurse Practitioner; Visit Provider Nurse Practitioner
DX: Z12.31 Encounter for screening mammogram for malignant neoplasm of breast (principal); Z80.3 Family history of malignant neoplasm of breast
CPT/HCPCS: 77063; 77067

== ENCOUNTER → 2022-03-13 12:13 | Outpatient (CLI) | payer OTHER, MEDICAID, SELFPAY ==
[2022-03-13 13:53] LABS: Add Manual Diff / Slide Review NO; Basophils Absolute Auto 0 /uL (0-100); Basophils Percent Auto 0.5 % (0-2); Eosinophils Absolute Auto 100 /uL (0-450); Hematocrit 33.5 % (36-46); Lymphocytes Absolute Auto 900 /uL (1100-4500); Mean Corpuscular HGB Conc 32.7 % (30-36); Mean Corpuscular Hemoglobin 26.7 PG (26-34); Mean Corpuscular Volume 81.5 fL (80-100); Monocytes Absolute Auto 400 /uL (0-900); Monocytes Percent Auto 9.6 % (3-14); Neutrophils Absolute Auto 2800 /uL (1500-7000); Neutrophils Percent Auto 66.9 % (50-75); Platelet Count 133 X10^3/uL (150-400); Red Blood Cell Count 4.11 X10^6/uL (4.0-5.2); Red Cell Distribution Width 24.6 % (11.6-14.8); White Blood Cell Count 4.2 X10^3/uL (4.5-11.0)
[2022-03-13 14:09] LABS: Anisocytosis 2+
[2022-03-13 14:19] LABS: INR 1.6 (0.9-1.3); Prothrombin Time 18.1 SECONDS (10.1-12.7)
[2022-03-13 14:41] LABS: Alanine Aminotransferase 26 IU/L (<35); Albumin 3.5 g/dL (3.5-5.0); Albumin Globulin Ratio 0.8 (1.0-2.8); Alkaline Phosphatase 94 U/L (38-126); Aspartate Aminotransferase 51 IU/L (14-36); BUN Creatinine Ratio 18.2 (6-22); Bilirubin Total 0.9 mg/dL (0.2-1.3); Blood Urea Nitrogen 10 mg/dL (7-17); Calcium 9.1 mg/dL (8.4-10.2); Carbon Dioxide 23 mmol/L (22-32); Chloride 111 mmol/L (98-107); Estimated Glomerular Filt Rate > 60 mL/min (>60); Globulin 4.3 g/dL (1.7-4.1); Glucose 96 mg/dL (80-110); HEMOLYSIS < 15 (0-50); Potassium 3.6 mmol/L (3.4-5.1); Sodium 141 mmol/L (137-145); Total Protein 7.8 g/dL (6.3-8.2)
[2022-03-14 05:47] LABS: Alpha Fetoprotein 3.9 ng/mL (0.0-9.2)
== END ==
PROVIDERS: PCP Nurse Practitioner; Referring Provider Internal Medicine Gastroenterology; Visit Provider Internal Medicine Gastroenterology
DX: K70.30 Alcoholic cirrhosis of liver without ascites (principal); R18.8 Other ascites; K72.90 Hepatic failure, unspecified without coma
CPT/HCPCS: 36415; 80053; 82105; 85025; 85610

== ENCOUNTER → 2022-03-21 13:33 | Outpatient (CLI) | payer OTHER, MEDICAID, SELFPAY ==
--- NOTE | 2022-03-21 | DI.MG.S_ITS ---
UNILATERAL LEFT DIGITAL DIAGNOSTIC MAMMOGRAM 3D/2D WITH ADDITIONAL VIEWS: 03/21/2022 CLINICAL: Additional evaluation requested from prior study. Comparison is made to exams dated: 03/06/2022 mammogram, 01/31/2021 mammogram, and 01/25/2020 mammogram - [facility]. The left breast is heterogeneously dense, which may obscure small masses (category c / 51-75% glandular tissue). The asymmetry in the left breast is not seen on additional views. No other significant masses or calcifications are seen in the breast. IMPRESSION: BENIGN The left breast asymmetry seen on the screening mammogram likely respresents superimposed fibroglandular tissue and is benign. There is no mammographic evidence of malignancy. A 1 year screening mammogram is recommended. Based on Tyrer-Cuzick model (a risk assessment model), the patient's lifetime risk is 23.8% and her 10 year risk is 10.9%. If a patient has an elevated risk, a more comprehensive evaluation should be considered and/or a referral to a genetic counselor. The [employer], [employer], and NCCN Guidelines advise the consideration of Breast MRI as an adjunct to screening mammography in patients whose Lifetime risk to develop breast cancer is 20% or higher. This exam was interpreted at Station ID: [id number]. NOTE: For mammograms, a report in lay terms will be sent to the patient. Approximately 15% of breast malignancies will not be visualized mammographically. In the management of a palpable breast mass, a negative mammogram must not discourage biopsy of a clinically suspicious lesion. Electronically Signed By: Tonia chambers/:03/21/2022 13:55:25 letter sent: Normal Exam ACR BI-RADS Category 2: Benign Finding(s) 3342F
--- NOTE | 2022-03-21 13:34 | DI.MRI.S_ITS ---
PROCEDURE: MR ABDOMEN WO/W CON INDICATIONS: MR pancreas on an outpatient basis recommended per CT TECHNIQUE: Coronal HASTE, axial 2D FLASH in- and [id number]; axial breath-hold T2 FSE with fat saturation from the hepatic dome to the iliac crests. Oblique coronal thin-slice and radial thick slab HASTE through the biliary system. Dynamic axial VIBE during administration of contrast. Post-contrast coronal VIBE or 2D FLASH with fat saturation from the hepatic dome to the iliac crests. Optional diffusion weighted imaging and ADC may be performed. COMPARISON: None. FINDINGS: Image quality: Motion degraded Pancreas and biliary system: Post cholecystectomy. Mildly dilated CBD can be normal in the setting of post cholecystectomy. This measures up to 10 millimeters. No obstructing mass or stone identified. Mild intrahepatic biliary dilation also seen. Dilated pancreatic duct, measuring 7 millimeters at the head. Multiple cystic lesions and dilated side branches, most notably at the head/uncinate process. Multi lobulated cystic lesion at the head measures up to 2.5 x 2.0 centimeters. The septations are enhancing, but without discrete nodule. Pancreatic atrophy. There are calcifications at the head of the pancreas. Solid organs: Cirrhosis. No discrete hypervascular liver lesion, although this is not a dedicated protocol. There are strands of fibrosis. Splenomegaly. No discrete adrenal nodule. There are renal cysts. Nodes and vessels: Upper abdominal prominent lymph nodes may be reactive. No aortic aneurysm. Bowel and peritoneum: No bowel dilation. No pathologic ascites. There might be some trace upper abdominal pericapsular fluid. Lung bases: Not well evaluated on MRI. Bones and soft tissues: Indeterminate heterogeneous marrow signal. IMPRESSION: Sequela of chronic pancreatitis. Multi lobulated cystic lesion at the pancreatic head might be a sequelae of chronic pancreatitis versus cystic neoplasm. Reimaging is recommended in 6 months, or GI consultation for endoscopic ultrasound. Other stable/incidental findings above. Dictated by: Valentin Farias M.D. on 03/21/2022 at 16:33 Approved by: Valentin Farias M.D. on 03/21/2022 at 16:49
== END ==
PROVIDERS: PCP Nurse Practitioner; Referring Provider Nurse Practitioner; Visit Provider Nurse Practitioner
DX: R92.8 Other abnormal and inconclusive findings on diagnostic imaging of breast (principal); R93.89 Abnormal findings on diagnostic imaging of other specified body structures; N64.89 Other specified disorders of breast; K86.1 Other chronic pancreatitis
CPT/HCPCS: 74183; 77065; G0279

== ENCOUNTER → 2022-04-23 15:20 | Outpatient (CLI) | payer OTHER, MEDICAID, SELFPAY ==
[2022-04-23 17:17] LABS: Free T3, Triiodothyronine Free 3.86 pg/mL (2.77-5.27); Free T4, Direct Thyroxine 1.12 ng/dL (0.78-2.19)
[2022-04-23 17:31] LABS: Thyroid Stimulating Hormone 44.2 uIU/mL (0.47-4.68)
== END ==
PROVIDERS: PCP Nurse Practitioner; Referring Provider Internal Medicine Endocrinology, Diabetes & Metabolism; Visit Provider Internal Medicine Endocrinology, Diabetes & Metabolism
DX: E03.8 Other specified hypothyroidism (principal)
CPT/HCPCS: 36415; 84439; 84443; 84481

== ENCOUNTER → 2022-05-07 15:20 | Outpatient (CLI) | payer OTHER, MEDICAID, SELFPAY ==
[2022-05-07 15:54] LABS: Add Manual Diff / Slide Review NO; Basophils Absolute Auto 0 /uL (0-100); Basophils Percent Auto 0.5 % (0-2); Eosinophils Absolute Auto 100 /uL (0-450); Eosinophils Percent Auto 2.3 % (2-4); Hematocrit 35.1 % (36-46); Hemoglobin 12.1 g/dL (12.0-16.0); Lymphocytes Absolute Auto 1000 /uL (1100-4500); Lymphocytes Percent Auto 22.1 % (25-40); Mean Corpuscular HGB Conc 34.3 % (30-36); Mean Corpuscular Hemoglobin 32.6 PG (26-34); Mean Corpuscular Volume 94.9 fL (80-100); Monocytes Absolute Auto 600 /uL (0-900); Monocytes Percent Auto 14.2 % (3-14); Neutrophils Absolute Auto 2700 /uL (1500-7000); Neutrophils Percent Auto 60.9 % (50-75); Platelet Count 79 X10^3/uL (150-400); Red Cell Distribution Width 20.2 % (11.6-14.8); White Blood Cell Count 4.4 X10^3/uL (4.5-11.0)
[2022-05-07 16:44] LABS: Anisocytosis 2+
== END ==
PROVIDERS: PCP Nurse Practitioner; Referring Provider Nurse Practitioner; Visit Provider Nurse Practitioner
DX: D53.9 Nutritional anemia, unspecified (principal)
CPT/HCPCS: 36415; 85025

== ENCOUNTER → 2022-05-20 12:41 | Outpatient (CLI) | payer OTHER, MEDICAID, SELFPAY ==
[2022-05-20 14:54] LABS: Reticulocyte Count, Percent 1.7 % (1.1-2.6)
[2022-05-20 14:57] LABS: Add Manual Diff / Slide Review NO; Basophils Absolute Auto 0 /uL (0-100); Basophils Percent Auto 0.4 % (0-2); Eosinophils Absolute Auto 100 /uL (0-450); Hematocrit 39.4 % (36-46); Hemoglobin 13.4 g/dL (12.0-16.0); Lymphocytes Absolute Auto 800 /uL (1100-4500); Lymphocytes Percent Auto 16.1 % (25-40); Mean Corpuscular HGB Conc 33.9 % (30-36); Mean Corpuscular Hemoglobin 32.6 PG (26-34); Monocytes Absolute Auto 500 /uL (0-900); Monocytes Percent Auto 10.6 % (3-14); Neutrophils Absolute Auto 3500 /uL (1500-7000); Neutrophils Percent Auto 69.9 % (50-75); Platelet Count 84 X10^3/uL (150-400); Red Cell Distribution Width 16.1 % (11.6-14.8)
[2022-05-20 15:41] LABS: BUN Creatinine Ratio 17.9 (6-22); Blood Urea Nitrogen 10 mg/dL (7-17); Calcium 9.2 mg/dL (8.4-10.2); Carbon Dioxide 24 mmol/L (22-32); Chloride 102 mmol/L (98-107); Estimated Glomerular Filt Rate > 60 mL/min (>60); Glucose 105 mg/dL (80-110); HEMOLYSIS < 15 (0-50); Potassium 3.4 mmol/L (3.4-5.1); Sodium 140 mmol/L (137-145)
[2022-05-20 15:57] LABS: HEMOLYSIS < 15 (0-50); Iron 247 ug/dL (37-170)
[2022-05-20 16:08] LABS: Total Iron Binding Capacity 317 ug/dL (265-497); Transferrin 241 mg/dL (206-381)
[2022-05-20 16:12] LABS: Percent Iron Saturation 78 % (15-50)
[2022-05-20 16:15] LABS: Ferritin 311 ng/mL (11-264)
[2022-05-20 16:47] LABS: Folate > 20.0 ng/mL (2.76-20.0); Vitamin B12 896 pg/mL (239-931)
== END ==
PROVIDERS: PCP Nurse Practitioner; Referring Provider Nurse Practitioner; Visit Provider Nurse Practitioner
DX: D50.0 Iron deficiency anemia secondary to blood loss (chronic) (principal); D53.9 Nutritional anemia, unspecified; D68.9 Coagulation defect, unspecified; K92.2 Gastrointestinal hemorrhage, unspecified
CPT/HCPCS: 36415; 80048; 82607; 82728; 82746; 83540; 83550; 85025; 85045

== ENCOUNTER → 2022-06-03 12:56 | Outpatient (CLI) | payer OTHER, MEDICAID, SELFPAY ==
[2022-06-03 14:45] LABS: Add Manual Diff / Slide Review NO; Basophils Absolute Auto 0 /uL (0-100); Basophils Percent Auto 1.1 % (0-2); Eosinophils Absolute Auto 100 /uL (0-450); Eosinophils Percent Auto 3.8 % (2-4); Hematocrit 32.3 % (36-46); Hemoglobin 11.1 g/dL (12.0-16.0); Lymphocytes Absolute Auto 800 /uL (1100-4500); Lymphocytes Percent Auto 25.1 % (25-40); Mean Corpuscular HGB Conc 34.2 % (30-36); Mean Corpuscular Hemoglobin 33.4 PG (26-34); Mean Corpuscular Volume 97.6 fL (80-100); Monocytes Absolute Auto 300 /uL (0-900); Monocytes Percent Auto 10.1 % (3-14); Neutrophils Absolute Auto 2000 /uL (1500-7000); Neutrophils Percent Auto 59.9 % (50-75); Platelet Count 80 X10^3/uL (150-400); Red Blood Cell Count 3.31 X10^6/uL (4.0-5.2); White Blood Cell Count 3.4 X10^3/uL (4.5-11.0)
[2022-06-03 14:59] LABS: INR 1.7 (0.9-1.3); Prothrombin Time 19.2 SECONDS (10.1-12.7)
== END ==
PROVIDERS: PCP Nurse Practitioner; Referring Provider Internal Medicine Gastroenterology; Visit Provider Internal Medicine Gastroenterology
DX: K70.30 Alcoholic cirrhosis of liver without ascites (principal); D50.0 Iron deficiency anemia secondary to blood loss (chronic); D53.9 Nutritional anemia, unspecified
CPT/HCPCS: 36415; 85025; 85610

== ENCOUNTER → 2022-06-16 14:55 | Outpatient (CLI) | payer OTHER, MEDICAID, SELFPAY ==
[2022-06-16 17:32] LABS: Add Manual Diff / Slide Review NO; Basophils Absolute Auto 0 /uL (0-100); Basophils Percent Auto 0.5 % (0-2); Eosinophils Absolute Auto 100 /uL (0-450); Eosinophils Percent Auto 2.6 % (2-4); Hematocrit 34.6 % (36-46); Hemoglobin 11.7 g/dL (12.0-16.0); Lymphocytes Absolute Auto 1100 /uL (1100-4500); Lymphocytes Percent Auto 21.5 % (25-40); Mean Corpuscular HGB Conc 33.7 % (30-36); Mean Corpuscular Hemoglobin 32.9 PG (26-34); Mean Corpuscular Volume 97.6 fL (80-100); Monocytes Absolute Auto 500 /uL (0-900); Monocytes Percent Auto 9.6 % (3-14); Neutrophils Absolute Auto 3200 /uL (1500-7000); Neutrophils Percent Auto 65.8 % (50-75); Platelet Count 81 X10^3/uL (150-400); Red Blood Cell Count 3.55 X10^6/uL (4.0-5.2); Red Cell Distribution Width 14.1 % (11.6-14.8); White Blood Cell Count 4.9 X10^3/uL (4.5-11.0)
[2022-06-16 18:50] LABS: BUN Creatinine Ratio 16.3 (6-22); Blood Urea Nitrogen 8 mg/dL (7-17); Calcium 8.1 mg/dL (8.4-10.2); Carbon Dioxide 29 mmol/L (22-32); Chloride 100 mmol/L (98-107); Estimated Glomerular Filt Rate > 60 mL/min (>60); Glucose 79 mg/dL (80-110); Sodium 139 mmol/L (137-145)
[2022-06-16 19:19] LABS: Potassium 2.7 mmol/L (3.4-5.1)
[2022-06-17 15:02] LABS: HEMOLYSIS 72 (0-50); Iron 95 ug/dL (37-170)
[2022-06-17 15:21] LABS: Percent Iron Saturation 31 % (15-50); Total Iron Binding Capacity 310 ug/dL (265-497); Transferrin 237 mg/dL (206-381)
[2022-06-17 16:47] LABS: Ferritin 161 ng/mL (11-264); HEMOLYSIS 18 (0-50)
[2022-06-17 17:18] LABS: Folate > 20.0 ng/mL (2.76-20.0); Vitamin B12 965 pg/mL (239-931)
== END ==
PROVIDERS: PCP Nurse Practitioner; Referring Provider Nurse Practitioner; Visit Provider Nurse Practitioner
DX: D64.9 Anemia, unspecified (principal); D68.9 Coagulation defect, unspecified; K92.2 Gastrointestinal hemorrhage, unspecified
CPT/HCPCS: 36415; 80048; 82607; 82728; 82746; 83540; 83550; 85025

== ENCOUNTER → 2022-07-15 15:27 | Outpatient (CLI) | payer OTHER, MEDICAID, SELFPAY ==
[2022-07-15 17:41] LABS: Alanine Aminotransferase 70 IU/L (<35); Albumin 3.7 g/dL (3.5-5.0); Albumin Globulin Ratio 0.7 (1.0-2.8); Alkaline Phosphatase 112 U/L (38-126); Aspartate Aminotransferase 142 IU/L (14-36); BUN Creatinine Ratio 16.7 (6-22); Bilirubin Total 2.6 mg/dL (0.2-1.3); Blood Urea Nitrogen 10 mg/dL (7-17); Calcium 9.3 mg/dL (8.4-10.2); Carbon Dioxide 25 mmol/L (22-32); Chloride 104 mmol/L (98-107); Estimated Glomerular Filt Rate > 60 mL/min (>60); Globulin 5.1 g/dL (1.7-4.1); Glucose 97 mg/dL (80-110); HEMOLYSIS < 15 (0-50); Magnesium 1.2 mg/dL (1.6-2.3); Potassium 3.3 mmol/L (3.4-5.1); Sodium 140 mmol/L (137-145); Total Protein 8.8 g/dL (6.3-8.2)
== END ==
PROVIDERS: PCP Nurse Practitioner; Referring Provider Nurse Practitioner; Visit Provider Nurse Practitioner
DX: E87.6 Hypokalemia (principal); T50.2X5A Adverse effect of carbonic-anhydrase inhibitors, benzothiadiazides and other diuretics, initial encounter
CPT/HCPCS: 36415; 80053; 83735

== ENCOUNTER → 2022-09-15 11:05 | Outpatient (CLI) | payer OTHER, MEDICAID, SELFPAY ==
[2022-09-15 12:29] LABS: Alanine Aminotransferase 67 IU/L (<35); Albumin 3.9 g/dL (3.5-5.0); Albumin Globulin Ratio 0.8 (1.0-2.8); Alkaline Phosphatase 126 U/L (38-126); Aspartate Aminotransferase 121 IU/L (14-36); BUN Creatinine Ratio 23.6 (6-22); Bilirubin Total 3.1 mg/dL (0.2-1.3); Blood Urea Nitrogen 13 mg/dL (7-17); Calcium 9.3 mg/dL (8.4-10.2); Carbon Dioxide 26 mmol/L (22-32); Chloride 103 mmol/L (98-107); Estimated Glomerular Filt Rate > 60 mL/min (>60); Globulin 4.7 g/dL (1.7-4.1); Glucose 90 mg/dL (80-110); HEMOLYSIS < 15 (0-50); Magnesium 1.3 mg/dL (1.6-2.3); Sodium 138 mmol/L (137-145); Total Protein 8.6 g/dL (6.3-8.2)
== END ==
PROVIDERS: PCP Nurse Practitioner; Referring Provider Internal Medicine Endocrinology, Diabetes & Metabolism; Visit Provider Internal Medicine Endocrinology, Diabetes & Metabolism
DX: E03.9 Hypothyroidism, unspecified (principal); E83.42 Hypomagnesemia; E87.6 Hypokalemia; K72.90 Hepatic failure, unspecified without coma
CPT/HCPCS: 36415; 80053; 83735

== ENCOUNTER → 2022-09-18 15:06 | Outpatient (CLI) | payer OTHER, MEDICAID, SELFPAY ==
--- NOTE | 2022-09-18 | DI.MRI.S_ITS ---
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 Oblique coronal and axial thin-slice HASTE, radial thick-slab HASTE centered on the extrahepatic bile ducts. Intravenous secretin: Not requested. COMPARISON: [facility], CT, CT ABDOMEN PELVIS W CON, 03/05/2022, 20:03. [facility], CT, CT CHEST ABD PEL W CON, 11/24/2021, 18:28. FINDINGS: Image quality: . There is motion artifact. Lower chest: Lower chest, not well evaluated on MRI. No basal effusions. Nonspecific distal esophageal wall thickening is again seen. There is a small hiatal hernia. Solid organs: Cirrhosis and steatosis. There are small liver cysts. There is a small hypervascular lesion at the lateral part of segment 7 (13/26) measuring 8-9 mm. No applicable ancillary features or other major features. Gallbladder is absent. Mildly dilated CBD, again seen, post cholecystectomy, measuring up to 10 mm. Moderate to severe atrophy of the pancreas with mildly dilated duct in the body and tail, and lumen wrists small cystic lesions and dilated side branches. Complex cystic lesion at the pancreatic head with multiple locules in aggregate measuring about 3.6 by 3.6 cm (3/14). This was present previously. Low intensity areas likely representing pancreatic calcifications. The main pancreatic duct is dilated in this portion measuring up to 1 cm. On post gadolinium images, no measurable soft tissue enhancing nodule is identified. Splenomegaly. Small renal cysts. No hydronephrosis. No adrenal nodules. Vessels and lymph nodes: No pathologic adenopathy by size criteria. No abdominal aortic aneurysm. Bowel and peritoneum: No evidence of small bowel obstruction. There are colonic diverticula. No pathologic ascites. Body wall: Unremarkable Bones: No acute or suspicious osseous finding. There are degenerative changes. IMPRESSION: Complex multiloculated cystic lesion at the pancreatic head, with moderate pancreatic ductal dilation. In combination with prior CT findings, there is evidence of chronic pancreatitis, pancreaticoliths, and pancreatic parenchymal atrophy. Consider GI consultation for EUS/FNA versus continue follow-up. Suspected cirrhosis. Splenomegaly. Small hypervascular region at the lateral portion segment 7, likely representing a perfusion anomaly. LR 3. Consider continued HCC screening. Other findings as above. Dictated by: Valentin Farias M.D. on 09/19/2022 at 9:21 Approved by: Valentin Farias M.D. on 09/19/2022 at 9:31
== END ==
PROVIDERS: PCP Nurse Practitioner; Referring Provider Nurse Practitioner; Visit Provider Nurse Practitioner
DX: Q45.3 Other congenital malformations of pancreas and pancreatic duct (principal); K86.2 Cyst of pancreas; K86.89 Other specified diseases of pancreas; K76.0 Fatty (change of) liver, not elsewhere classified; K76.89 Other specified diseases of liver; K83.8 Other specified diseases of biliary tract; R16.1 Splenomegaly, not elsewhere classified; K44.9 Diaphragmatic hernia without obstruction or gangrene; K57.90 Diverticulosis of intestine, part unspecified, without perforation or abscess without bleeding; Z90.49 Acquired absence of other specified parts of digestive tract
CPT/HCPCS: 74183; A9579

== ENCOUNTER 2022-09-30 03:56 | Emergency (ER) | payer OTHER, MEDICAID, SELFPAY ==
[2022-09-30] VITALS (7 sets, daily range): BP systolic 103–106; BP diastolic 67–71; PULSE 74–89; RESP 16; O2SAT 94–99; BMI 22.6
--- NOTE | 2022-09-30 03:55 | DI.CT.S_ITS ---
This report includes an Addendum and supersedes previous reports for this exam. PROCEDURE: CT ABDOMEN PELVIS W CON INDICATIONS: ab pain with rectal bleeding and varices TECHNIQUE: After the administration of oral and IV contrast, axial sections were acquired from the lung bases to the pubic symphysis. Coronal and sagittal reformats were performed. For radiation dose reduction, the following was used: automated exposure control, adjustment of mA and/or kV according to patient size. COMPARISON: [facility], CT, CT ABDOMEN PELVIS W CON, 03/05/2022, 20:03. [facility], MR, MR ABDOMEN WO/W CON, 03/21/2022, 14:22. [facility], MR, MR AB PANCREATIC/MRCP PROTOCOL, 09/18/2022, 15:45. [facility], CT, CT ABDOMEN PELVIS W CON, 10/10/2021, 17:18. FINDINGS: Image quality: Excellent. Lung bases: No pleural effusion. Tiny hiatal hernia. Possible thickening at the distal esophagus. Small paraesophageal varix. Heart: No significant findings. ABDOMEN: Liver: Liver surface is nodular. Liver has a heterogeneous appearance. Hypodensity in the right lobe of the liver, (2/), unchanged. T2 hyperintense on the prior MR and no enhancement. This is consistent with a small cyst. This exam is not tailored for the evaluation of HCC. Gallbladder: Absent. Biliary ducts: No significant intrahepatic biliary ductal dilatation. CBD measures 1.3 cm, (4/17), previously 1.[address] 10/10/2021. Pancreas: Hypodensity at the pancreatic head which likely represents a cystic lesion and/or pancreatic ductal dilatation. Calcifications in this region measuring 1 cm, (2/41), previously 0.9 cm on 03/05/2022 CT; and 0.7 cm, (2/40), previously 0.[address] 03/05/2022. The tail the pancreas is somewhat atrophic. Additional subtle hypodensities in the tail the pancreas. Stranding in the retroperitoneal fat posterior and inferior to the pancreas, (2/32), more conspicuous compared to prior CTs. Spleen: Upper limits of normal in size. Adrenal Glands: No nodule. Kidneys and Ureters: No hydronephrosis. Stomach and Bowel: Stomach is not distended. No small bowel obstruction. A few colonic diverticuli. No diverticulitis identified. There is increased conspicuity of the cecal wall with trace adjacent fluid. The appendix is not identified. Perirectal varices appear similar. Peritoneum: Small volume of ascites. No pneumoperitoneum. Ventral Wall: No hernia. Abdominal Nodes: No retroperitoneal or mesenteric adenopathy by size criteria. Tiny peritoneal calcification at the left flank. Vessels: No abdominal aortic aneurysm. Conventional and patent hepatic arterial anatomy. SMV and IMV are patent. The portal vein is suboptimally opacified. There are multiple small varices in the abdomen and retroperitoneum. Rectal varices as noted above. PELVIS: Pelvic Organs: Uterus is absent. Bladder: Distended. No bladder stone. Pelvic Nodes: No enlarged lymph nodes. Miscellaneous: No inguinal hernias are seen. Bones: No suspicious lesion. Mild multilevel DDD. IMPRESSION: 1. Suspect inflammatory change at the cecum. This is most consistent with an infectious/inflammatory colitis. 2. Rectal varices are similar. 3. Inflammatory change near the pancreas and dedrick hepatis. This could be due to pancreatitis. Recommend correlation with serum lipase. 4. Cystic change and/or pancreatic ductal dilatation at the head of the pancreas. Calcifications in the region of the head of the pancreas x2. 1 of which is increased in size compared to 2022. 5. CBD is dilated, similar. However, no significant intrahepatic biliary ductal dilatation. Post cholecystectomy. 6. Cirrhotic liver morphology. Small volume of ascites. Minor discrepancy with the overnight preliminary interpretation. Lower suspicion for choledocholithiasis. Suspect that the calcifications are within the pancreas rather than the CBD. This finding was relayed to the emergency department. Dictated by: Andreas Hackett M.D. on 09/30/2022 at 8:30 Approved by: Andreas Hackett M.D. on 09/30/2022 at 9:16 ADDENDUM: Findings discussed with Dr. Tima Nelson. Dictated by: Andreas Hackett M.D. on 09/30/2022 at 9:20 Approved by: Andreas Hackett M.D. on 09/30/2022 at 9:20
--- NOTE | 2022-09-30 04:09 | ED.GIBLEED ---
HPI - GI Bleed <Emily Maloney, DO - Last Filed: 10/03/22 07:08> General Chief complaint: GI Bleed Stated complaint: Rectal Bleed x 2 wks Time Seen by Provider: 09/30/22 04:02 History of Present Illness HPI Narrative: Patient is a 62-year-old female with past medical history of end-stage liver disease, cirrhosis, ascites secondary to alcohol use, anemia, GI bleed with esophageal varices, chronic pancreatitis presents today with rectal bleeding and vomiting. She reports that for last couple weeks she is had rectal bleeding and ?pus? for stool. She has had some vomiting of blood which she reports as being dark and not bright red. She is followed by GI at [facility] Dr. Nicholas. She reports that she had an EGD last month and she says her varices are stable. They are supposedly is a pancreatic mass as well. Patient is having some abdominal cramping in her lower abdomen. She reports drinking alcohol tonight she is extremely apologetic. She denies any fever or chills EGD 08/18/2022 from [facility]: ASA grade assessment 3 a patient with severe systemic disease middle and lower 3rd of the esophagus demonstrated scarring consistent with prior banding no varices no additional banding applied. Stomach mosaic pattern consistent with [id number] portal hypertensive gastropathy in the fundus with proximal body. No bleeding. Remainder of stomach was unremarkable. Duodenum bulb and 2nd portion unremarkable Patient suffers from severe PTSD. Secondary to trauma. She sees a specific trauma therapist she is been unable to see him because he has been sick. Mom reports that this has really been destabilizing her patient lives with her elderly parents. Related Data Home Medications Medication Instructions Recorded Confirmed liothyronine 5 mcg tablet (Cytomel) 10 mcg PO DAILY 05/31/18 10/02/22 lactulose 10 gram/15 mL oral 15 - 30 ml PO 1-2XD 12/27/18 10/02/22 solution levothyroxine 100 mcg capsule 100 mcg PO DAILY 12/19/19 10/02/22 magnesium 1 tab PO BID 10/01/22 10/02/22 Previous Rx's Medication Instructions Recorded rifaximin 550 mg tablet (Xifaxan) 550 mg PO BID #60 tabs 09/16/16 vit,calcium no.40-iron 1 tab PO DAILY #90 tabs 03/20/22 fum 27 mg iron-folate no.1 1 mg tablet pregabalin 50 mg capsule 50 mg PO TID #270 caps 05/14/22 spironolactone 50 mg tablet See Rx Instructions .Route 05/26/22 .COMPLEX #30 tabs nadolol 20 mg tablet See Rx Instructions .Route 07/21/22 .COMPLEX #135 tabs lorazepam 1 mg tablet 1 mg PO DAILY PRN anxiety #30 tabs 08/18/22 potassium chloride 10 mEq 20 meq PO DAILY #30 tabs 08/20/22 tablet,extended release(part/cryst) diazepam 10 mg tablet (Valium) 10 mg PO BID PRN anxiety #30 tabs 10/01/22 furosemide 20 mg tablet 40 mg PO QAM #60 tabs 10/01/22 hydromorphone 2 mg tablet 2 mg PO Q4H PRN pain #30 tabs 10/01/22 ondansetron 8 mg disintegrating 8 mg PO Q8H PRN nausea and 10/01/22 tablet vomiting #30 tabs Allergies Allergy/AdvReac Type Severity Reaction Status Date / Time No Known Drug Allergies Allergy Verified 10/02/22 10:10 Review of Systems <Emily Maloney DO - Last Filed: 10/03/22 07:08> Review of Systems ROS Unobtainable: All systems reviewed & are unremarkable except as noted in HPI and below Patient History <Emily Maloney DO - Last Filed: 10/03/22 07:08> Medical History Alcohol use disorder, severe, in early remission Anemia, blood loss Anemia, macrocytic Anxiety Ascites due to alcoholic cirrhosis Cardiac arrhythmia Chicken pox Cirrhosis (2012) Coagulation disorder (2012) Depression Eczema (2014) EV (esophageal varices) (10/2015) GERD (gastroesophageal reflux disease) GI bleeding (2015) Hemorrhoids, internal History of alcohol abuse (12/27/15) History of blood transfusion (10/2015) History of heavy periods (2014) Hypercalcemia Hypertension Hypothyroidism Intermittent palpitations (04/2019) Measles Mumps Nonalcoholic fatty liver disease Ovarian cyst (2012) Painful menstrual periods (2012) Pancreatitis Portal hypertensive gastropathy (05/2015) Psoriasis (2014) PTSD (post-traumatic stress disorder) (1999) SBO (small bowel obstruction) Shortness of breath Weight gain Surgical History H/O bilateral oophorectomy History of appendectomy History of cholecystectomy History of esophagogastroduodenoscopy (EGD) (01/2009) History of esophagogastroduodenoscopy (EGD) (05/2015) History of inguinal hernia repair Status post appendectomy Status post colonoscopy (01/2009) Status post hernia repair Status post hysteroscopy (06/17/11) Status post laparoscopic supracervical hysterectomy (08/25/16) Family History Grandfather Heart disease IA (myocardial infarction) Grandmother Alcoholism Father No problems noted. Mother No problems noted. Grandfather Heart disease Grandmother Colon cancer Brother No problems noted. Social History Smoking Status: Never smoker alcohol intake: current Smoking Status: Never smoker alcohol intake frequency: holidays/special occasions only Substance Use Type: does not use Exam <Emily Maloney DO - Last Filed: 10/03/22 07:08> Initial Vital Signs Initial Vital Signs: Vital Signs Pulse Rate 78 09/30/22 04:00 Respiratory Rate 16 09/30/22 04:00 Blood Pressure 106/67 09/30/22 04:00 Pulse Oximetry 95 09/30/22 04:00 Oxygen Delivery Method Room Air 09/30/22 04:00 GENERAL: Alert slightly anxious 62-year-old female and in [no acute] distress. HEENT: Head atraumatic,EOMI, pupils reactive, face symmetric, [moist] mucous membranes CARDIOVASCULAR: Regular rate and rhythm without murmurs, rubs or gallops. RESPIRATORY: Breath sounds equal bilaterally, no wheezes rales or rhonchi. ABDOMEN: Soft, ascites slightly distended positive bowel sounds mild tender lower abdomen [RECTAL:] [Hemoccult-positive, no hemorrhoids, nontender] EXTREMITIES: Normal range of motion, no clubbing or edema. Neurovascularly intact NEUROLOGICAL: Alert and oriented x4. SKIN: Warm, dry, no laceration, no petechiae, no rashes or lesions. <Tima Nelson DO - Last Filed: 09/30/22 14:36> Initial Vital Signs Initial Vital Signs: Vital Signs Pulse Rate 78 09/30/22 04:00 Respiratory Rate 16 09/30/22 04:00 Blood Pressure 106/67 09/30/22 04:00 Pulse Oximetry 95 09/30/22 04:00 Oxygen Delivery Method Room Air 09/30/22 04:00 Course <Emily Maloney DO - Last Filed: 10/03/22 07:08> Orders Ordered: Discontinued Medications Octreotide Acetate 500 mcg/ (Sodium Chloride) 101 mls @ 5.05 mls/hr IV CONT AGNIESZKA; Protocol Last Infusion: 09/30/22 11:39 Dose: 25 mcg/hr, 5.05 mls/hr Documented By: Admin: 09/30/22 06:12 Dose: 25 mcg/hr, 5.05 mls/hr Documented By: JONNA Lorazepam (Lorazepam 2 Mg/Ml Inj) 1 mg IV NOW ONE Stop: 09/30/22 05:47 Last Admin: 09/30/22 05:52 Dose: 1 mg Documented By: JONNA Morphine Sulfate (Morphine 2 Mg/Ml Inj) 2 mg IV NOW ONE Stop: 09/30/22 05:41 Last Admin: 09/30/22 05:42 Dose: 2 mg Documented By: JONNA Morphine Sulfate (Morphine 2 Mg/Ml Inj) 2 mg IV NOW ONE Stop: 09/30/22 05:47 Last Admin: 09/30/22 05:52 Dose: 2 mg Documented By: JONNA Octreotide Acetate (Octreotide 100 Mcg/Ml Vial) 50 mcg IV NOW ONE Stop: 09/30/22 03:56 Last Admin: 09/30/22 05:36 Dose: 50 mcg Documented By: JONNA Pantoprazole Sodium (Pantoprazole 40 Mg Vial) 80 mg IV NOW ONE Stop: 09/30/22 03:56 Last Admin: 09/30/22 05:28 Dose: 80 mg Documented By: JONNA Vital Signs Vital signs: Vital Signs - 8 hr 09/30/22 07:52 09/30/22 08:00 09/30/22 08:30 Pulse Rate 78 80 74 Blood Pressure 103/71 Pulse Oximetry 94 97 96 Oxygen Delivery Method Nasal Cannula Oxygen Flow Rate 2 09/30/22 09:00 09/30/22 09:30 Pulse Rate 75 89 Blood Pressure Pulse Oximetry 96 96 Oxygen Delivery Method Oxygen Flow Rate <Tima Nelson DO - Last Filed: 09/30/22 14:36> Orders Ordered: Discontinued Medications Octreotide Acetate 500 mcg/ (Sodium Chloride) 101 mls @ 5.05 mls/hr IV CONT AGNIESZKA; Protocol Last Infusion: 09/30/22 11:39 Dose: 25 mcg/hr, 5.05 mls/hr Documented By: Admin: 09/30/22 06:12 Dose: 25 mcg/hr, 5.05 mls/hr Documented By: JONNA Lorazepam (Lorazepam 2 Mg/Ml Inj) 1 mg IV NOW ONE Stop: 09/30/22 05:47 Last Admin: 09/30/22 05:52 Dose: 1 mg Documented By: JONNA Morphine Sulfate (Morphine 2 Mg/Ml Inj) 2 mg IV NOW ONE Stop: 09/30/22 05:41 Last Admin: 09/30/22 05:42 Dose: 2 mg Documented By: JONNA Morphine Sulfate (Morphine 2 Mg/Ml Inj) 2 mg IV NOW ONE Stop: 09/30/22 05:47 Last Admin: 09/30/22 05:52 Dose: 2 mg Documented By: JONNA Octreotide Acetate (Octreotide 100 Mcg/Ml Vial) 50 mcg IV NOW ONE Stop: 09/30/22 03:56 Last Admin: 09/30/22 05:36 Dose: 50 mcg Documented By: JONNA Pantoprazole Sodium (Pantoprazole 40 Mg Vial) 80 mg IV NOW ONE Stop: 09/30/22 03:56 Last Admin: 09/30/22 05:28 Dose: 80 mg Documented By: JONNA Vital Signs Vital signs: Vital Signs - 8 hr 09/30/22 07:52 09/30/22 08:00 09/30/22 08:30 Pulse Rate 78 80 74 Blood Pressure 103/71 Pulse Oximetry 94 97 96 Oxygen Delivery Method Nasal Cannula Oxygen Flow Rate 2 09/30/22 09:00 09/30/22 09:30 Pulse Rate 75 89 Blood Pressure Pulse Oximetry 96 96 Oxygen Delivery Method Oxygen Flow Rate MDM - GI Bleed <Emily Maloney DO - Last Filed: 10/03/22 07:08> Lab Data 09/30/22 10:08 09/30/22 10:30 Labs: Lab Results 09/30/22 09/30/22 09/30/22 Range/Units 04:05 04:05 04:40 WBC 7.1 (4.5-11.0) X10^3/uL RBC 3.92 L (4.0-5.2) X10^6/uL Hgb 13.2 (12.0-16.0) g/dL Hct 38.3 (36-46) % MCV 97.5 (80-100) fL MCH 33.6 (26-34) PG MCHC 34.5 (30-36) % RDW 15.6 H (11.6-14.8) % Plt Count 124 L (150-400) X10^3/uL Neut % (Auto) 49.8 L (50-75) % Lymph % (Auto) 41.8 H (25-40) % [place] % (Auto) 5.3 (3-14) % Eos % (Auto) 2.0 (2-4) % Baso % (Auto) 1.1 (0-2) % Neut # (Auto) 3600 (2283-0740) /uL Lymph # (Auto) 3000 (4936-7877) /uL [place] # (Auto) 400 (0-900) /uL Eos # (Auto) 100 (0-450) /uL Baso # (Auto) 100 (0-100) /uL PT (10.1-12.7) SECONDS INR (0.9-1.3) APTT (26-36) SECONDS Sodium 146 H (137-145) mmol/L Potassium 4.0 (3.4-5.1) mmol/L Chloride 110 H (98-107) mmol/L Carbon Dioxide 26 (22-32) mmol/L BUN 11 (7-17) mg/dL Creatinine 0.54 (0.52-1.04) mg/dL Estimated GFR > 60 (>60) mL/min BUN/Creatinine Ratio 20.4 (6-22) Glucose 100 (80-110) mg/dL Lactate 2.0 (0.7-2.1) mmol/L Calcium 9.0 (8.4-10.2) mg/dL Total Bilirubin 2.2 H (0.2-1.3) mg/dL AST 219 H (14-36) IU/L ALT 103 H (<35) IU/L Alkaline Phosphatase 137 H (38-126) U/L Total Protein 8.7 H (6.3-8.2) g/dL Albumin 3.9 (3.5-5.0) g/dL Globulin 4.8 H (1.7-4.1) g/dL Albumin/Globulin Ratio 0.8 L (1.0-2.8) Lipase 611 H (23-300) U/L Ethyl Alcohol 381 H ( - 10) mg/dL Blood Type Antibody Screen 09/30/22 09/30/22 09/30/22 Range/Units 04:40 04:40 10:08 WBC 6.5 (4.5-11.0) X10^3/uL RBC 3.80 L (4.0-5.2) X10^6/uL Hgb 12.6 (12.0-16.0) g/dL Hct 37.4 (36-46) % MCV 98.2 (80-100) fL MCH 33.0 (26-34) PG MCHC 33.6 (30-36) % RDW 16.0 H (11.6-14.8) % Plt Count 133 L (150-400) X10^3/uL Neut % (Auto) 50.9 (50-75) % Lymph % (Auto) 39.3 (25-40) % [place] % (Auto) 7.4 (3-14) % Eos % (Auto) 1.7 L (2-4) % Baso % (Auto) 0.7 (0-2) % Neut # (Auto) 3300 (3163-6263) /uL Lymph # (Auto) 2600 (8327-2075) /uL [place] # (Auto) 500 (0-900) /uL Eos # (Auto) 100 (0-450) /uL Baso # (Auto) 0 (0-100) /uL PT 16.2 H (10.1-12.7) SECONDS INR 1.4 H (0.9-1.3) APTT 40 H (26-36) SECONDS Sodium (137-145) mmol/L Potassium (3.4-5.1) mmol/L Chloride (98-107) mmol/L Carbon Dioxide (22-32) mmol/L BUN (7-17) mg/dL Creatinine (0.52-1.04) mg/dL Estimated GFR (>60) mL/min BUN/Creatinine Ratio (6-22) Glucose (80-110) mg/dL Lactate (0.7-2.1) mmol/L Calcium (8.4-10.2) mg/dL Total Bilirubin (0.2-1.3) mg/dL AST (14-36) IU/L ALT (<35) IU/L Alkaline Phosphatase (38-126) U/L Total Protein (6.3-8.2) g/dL Albumin (3.5-5.0) g/dL Globulin (1.7-4.1) g/dL Albumin/Globulin Ratio (1.0-2.8) Lipase (23-300) U/L Ethyl Alcohol ( - 10) mg/dL Blood Type A Positive Antibody Screen Negative 09/30/22 Range/Units 10:30 WBC (4.5-11.0) X10^3/uL RBC (4.0-5.2) X10^6/uL Hgb (12.0-16.0) g/dL Hct (36-46) % MCV (80-100) fL MCH (26-34) PG MCHC (30-36) % RDW (11.6-14.8) % Plt Count (150-400) X10^3/uL Neut % (Auto) (50-75) % Lymph % (Auto) (25-40) % [place] % (Auto) (3-14) % Eos % (Auto) (2-4) % Baso % (Auto) (0-2) % Neut # (Auto) (8317-8747) /uL Lymph # (Auto) (6182-1167) /uL [place] # (Auto) (0-900) /uL Eos # (Auto) (0-450) /uL Baso # (Auto) (0-100) /uL PT (10.1-12.7) SECONDS INR (0.9-1.3) APTT (26-36) SECONDS Sodium 145 (137-145) mmol/L Potassium 4.2 (3.4-5.1) mmol/L Chloride 111 H (98-107) mmol/L Carbon Dioxide 23 (22-32) mmol/L BUN 10 (7-17) mg/dL Creatinine 0.65 (0.52-1.04) mg/dL Estimated GFR > 60 (>60) mL/min BUN/Creatinine Ratio 15.4 (6-22) Glucose 87 (80-110) mg/dL Lactate (0.7-2.1) mmol/L Calcium 8.5 (8.4-10.2) mg/dL Total Bilirubin 2.3 H (0.2-1.3) mg/dL AST 247 H (14-36) IU/L ALT 106 H (<35) IU/L Alkaline Phosphatase 136 H (38-126) U/L Total Protein 8.1 (6.3-8.2) g/dL Albumin 3.7 (3.5-5.0) g/dL Globulin 4.4 H (1.7-4.1) g/dL Albumin/Globulin Ratio 0.8 L (1.0-2.8) Lipase 670 H (23-300) U/L Ethyl Alcohol ( - 10) mg/dL Blood Type Antibody Screen Imaging Data CT scan - abdomen/pelvis: Radiologist's Impression: Preliminary report: 2 large calcification within region of distinct common bile duct and ampulla measuring up to 10 mm suspect choledocholithiasis. Recommend MRI/MRCP. Mild inflammatory changes within dedrick hepatis region and adjacent to the head of the pancreas possibly related to mild acute pancreatitis correlate with pancreatic enzymes. Questionable cystic structure within tail of pancreas measuring to 8 mm attention on subsequent MRCP. Mild diffuse circumferential wall thickening of cecum is likely related to colitis. No sree colonic focal drainable collection or hemoperitoneum. Sequela of cirrhosis MRCP: Radiologist's Impression: ADDENDUMThis report includes an Addendum and supersedes previous reports for this exam. ? ? ? PROCEDURE:? MR AB PANCREATIC/MRCP PROTOCOL ? INDICATIONS:? 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 TECHNIQUE:? Coronal HASTE through the abdomen, axial 2-D FLASH in- and [id number], and breath-hold T2 FSE with fat saturation through the biliary system and pancreas.? Oblique coronal and axial thin-slice HASTE, radial thick-slab HASTE centered on the extrahepatic bile ducts.? ? ? Intravenous secretin:? Not requested.? ? COMPARISON:? [facility], CT, CT ABDOMEN PELVIS W CON, 03/05/2022, 20:03.? [facility], CT, CT CHEST ABD PEL W CON, 11/24/2021, 18:28. ? FINDINGS:? Image quality:? .? There is motion artifact. ? Lower chest:? Lower chest, not well evaluated on MRI.? No basal effusions.? Nonspecific distal esophageal wall thickening is again seen.? There is a small hiatal hernia. ? Solid organs:? Cirrhosis and steatosis.? There are small liver cysts.? There is a small hypervascular lesion at the lateral part of segment 7 (13/26) measuring 8-9 mm.? No applicable ancillary features or other major features. ? Gallbladder is absent. Mildly dilated CBD, again seen, post cholecystectomy, measuring up to 10 mm. ? Moderate to severe atrophy of the pancreas with mildly dilated duct in the body and tail, and lumen wrists small cystic lesions and dilated side branches.? Complex cystic lesion at the pancreatic head with multiple locules in aggregate measuring about 3.6 by 3.6 cm (09/23).? This was present previously.? Low intensity areas likely representing pancreatic calcifications.? The main pancreatic duct is dilated in this portion measuring up to 1 cm.? On post gadolinium images, no measurable soft tissue enhancing nodule is identified. ? Splenomegaly. Small renal cysts.? No hydronephrosis.? No adrenal nodules. ? Vessels and lymph nodes:? No pathologic adenopathy by size criteria.? No abdominal aortic aneurysm. ? Bowel and peritoneum:? No evidence of small bowel obstruction.? There are colonic diverticula.? No pathologic ascites. ? Body wall:? Unremarkable ? Bones:? No acute or suspicious osseous finding.? There are degenerative changes. ? IMPRESSION:? Complex multiloculated cystic lesion at the pancreatic head, with moderate pancreatic ductal dilation.? In combination with prior CT findings, there is evidence of chronic pancreatitis, pancreaticoliths, and pancreatic parenchymal atrophy.? Consider GI consultation for EUS/FNA versus continue follow-up. ? Suspected cirrhosis.? Splenomegaly.? Small hypervascular region at the lateral portion segment 7, likely representing a perfusion anomaly.? LR 3.? Consider continued HCC screening.? ? Other findings as above.? ? Dictated by: Valentin Farias M.D. on 09/19/2022 at 9:21 ? ? Approved by: Valentin Farias M.D. on 09/19/2022 at 9:31 ? ? ? ADDENDUM: ? Additional comparison images as follows: COMPARISON: [facility], MR, MR ABDOMEN WO/W CON, 03/21/2022, 14:22. ? Complex pancreatic head cystic lesion is slightly enlarged (compare today's images 01/05 and 09/23 vs. prior MRI images 01/07 and 09/22). As outlined in the original impression, GI consultation for EUS/FNA can be considered, vs. continued followup depending on clinical context. ? Dictated by: Valentin Farias M.D. on 09/20/2022 at 11:25 ? ? Approved by: Valentin Farias M.D. on 09/20/2022 at 11:2 MDM Narrative Medical decision making narrative: Patient is a 62-year-old female known alcoholic with history of cirrhosis ascites and varices. Recent EGD does not show actual varices. Patient is having significant abdominal pain seems to be all over some in right upper quadrant in sum mid abdomen along with abnormal stool which she describes as mucousy. Blood work does not show any significant leukocytosis or anemia. Sodium is 146, potassium 4.0 chloride 110 BUN creatinine within normal limits lactate is 2.0. Bilirubin is 2.2 previously on September 15 it was 3.1, AST 219 previously 121, ALT 103 previously 67, alk-phos 137 previously 126. Patient is quite anxious and having pain all across her abdomen she is given morphine and Ativan. I asked to look at her rectum and she declined. Currently she is not having any vomiting diarrhea she is hemodynamically stable. Records from [facility] have been received and reviewed including recent EGD <Tima Nelson DO - Last Filed: 09/30/22 14:36> Lab Data Labs: Lab Results 09/30/22 09/30/22 09/30/22 Range/Units 04:05 04:05 04:40 WBC 7.1 (4.5-11.0) X10^3/uL RBC 3.92 L (4.0-5.2) X10^6/uL Hgb 13.2 (12.0-16.0) g/dL Hct 38.3 (36-46) % MCV 97.5 (80-100) fL MCH 33.6 (26-34) PG MCHC 34.5 (30-36) % RDW 15.6 H (11.6-14.8) % Plt Count 124 L (150-400) X10^3/uL Neut % (Auto) 49.8 L (50-75) % Lymph % (Auto) 41.8 H (25-40) % [place] % (Auto) 5.3 (3-14) % Eos % (Auto) 2.0 (2-4) % Baso % (Auto) 1.1 (0-2) % Neut # (Auto) 3600 (6099-9216) /uL Lymph # (Auto) 3000 (3158-9175) /uL [place] # (Auto) 400 (0-900) /uL Eos # (Auto) 100 (0-450) /uL Baso # (Auto) 100 (0-100) /uL PT (10.1-12.7) SECONDS INR (0.9-1.3) APTT (26-36) SECONDS Sodium 146 H (137-145) mmol/L Potassium 4.0 (3.4-5.1) mmol/L Chloride 110 H (98-107) mmol/L Carbon Dioxide 26 (22-32) mmol/L BUN 11 (7-17) mg/dL Creatinine 0.54 (0.52-1.04) mg/dL Estimated GFR > 60 (>60) mL/min BUN/Creatinine Ratio 20.4 (6-22) Glucose 100 (80-110) mg/dL Lactate 2.0 (0.7-2.1) mmol/L Calcium 9.0 (8.4-10.2) mg/dL Total Bilirubin 2.2 H (0.2-1.3) mg/dL AST 219 H (14-36) IU/L ALT 103 H (<35) IU/L Alkaline Phosphatase 137 H (38-126) U/L Total Protein 8.7 H (6.3-8.2) g/dL Albumin 3.9 (3.5-5.0) g/dL Globulin 4.8 H (1.7-4.1) g/dL Albumin/Globulin Ratio 0.8 L (1.0-2.8) Lipase 611 H (23-300) U/L Ethyl Alcohol 381 H ( - 10) mg/dL Blood Type Antibody Screen 09/30/22 09/30/22 09/30/22 Range/Units 04:40 04:40 10:08 WBC 6.5 (4.5-11.0) X10^3/uL RBC 3.80 L (4.0-5.2) X10^6/uL Hgb 12.6 (12.0-16.0) g/dL Hct 37.4 (36-46) % MCV 98.2 (80-100) fL MCH 33.0 (26-34) PG MCHC 33.6 (30-36) % RDW 16.0 H (11.6-14.8) % Plt Count 133 L (150-400) X10^3/uL Neut % (Auto) 50.9 (50-75) % Lymph % (Auto) 39.3 (25-40) % [place] % (Auto) 7.4 (3-14) % Eos % (Auto) 1.7 L (2-4) % Baso % (Auto) 0.7 (0-2) % Neut # (Auto) 3300 (3877-4987) /uL Lymph # (Auto) 2600 (2066-5666) /uL [place] # (Auto) 500 (0-900) /uL Eos # (Auto) 100 (0-450) /uL Baso # (Auto) 0 (0-100) /uL PT 16.2 H (10.1-12.7) SECONDS INR 1.4 H (0.9-1.3) APTT 40 H (26-36) SECONDS Sodium (137-145) mmol/L Potassium (3.4-5.1) mmol/L Chloride (98-107) mmol/L Carbon Dioxide (22-32) mmol/L BUN (7-17) mg/dL Creatinine (0.52-1.04) mg/dL Estimated GFR (>60) mL/min BUN/Creatinine Ratio (6-22) Glucose (80-110) mg/dL Lactate (0.7-2.1) mmol/L Calcium (8.4-10.2) mg/dL Total Bilirubin (0.2-1.3) mg/dL AST (14-36) IU/L ALT (<35) IU/L Alkaline Phosphatase (38-126) U/L Total Protein (6.3-8.2) g/dL Albumin (3.5-5.0) g/dL Globulin (1.7-4.1) g/dL Albumin/Globulin Ratio (1.0-2.8) Lipase (23-300) U/L Ethyl Alcohol ( - 10) mg/dL Blood Type A Positive Antibody Screen Negative 09/30/22 Range/Units 10:30 WBC (4.5-11.0) X10^3/uL RBC (4.0-5.2) X10^6/uL Hgb (12.0-16.0) g/dL Hct (36-46) % MCV (80-100) fL MCH (26-34) PG MCHC (30-36) % RDW (11.6-14.8) % Plt Count (150-400) X10^3/uL Neut % (Auto) (50-75) % Lymph % (Auto) (25-40) % [place] % (Auto) (3-14) % Eos % (Auto) (2-4) % Baso % (Auto) (0-2) % Neut # (Auto) (2209-9321) /uL Lymph # (Auto) (6189-4576) /uL [place] # (Auto) (0-900) /uL Eos # (Auto) (0-450) /uL Baso # (Auto) (0-100) /uL PT (10.1-12.7) SECONDS INR (0.9-1.3) APTT (26-36) SECONDS Sodium 145 (137-145) mmol/L Potassium 4.2 (3.4-5.1) mmol/L Chloride 111 H (98-107) mmol/L Carbon Dioxide 23 (22-32) mmol/L BUN 10 (7-17) mg/dL Creatinine 0.65 (0.52-1.04) mg/dL Estimated GFR > 60 (>60) mL/min BUN/Creatinine Ratio 15.4 (6-22) Glucose 87 (80-110) mg/dL Lactate (0.7-2.1) mmol/L Calcium 8.5 (8.4-10.2) mg/dL Total Bilirubin 2.3 H (0.2-1.3) mg/dL AST 247 H (14-36) IU/L ALT 106 H (<35) IU/L Alkaline Phosphatase 136 H (38-126) U/L Total Protein 8.1 (6.3-8.2) g/dL Albumin 3.7 (3.5-5.0) g/dL Globulin 4.4 H (1.7-4.1) g/dL Albumin/Globulin Ratio 0.8 L (1.0-2.8) Lipase 670 H (23-300) U/L Ethyl Alcohol ( - 10) mg/dL Blood Type Antibody Screen MDM Narrative Medical decision making narrative: Patient is a 62-year-old female known alcoholic with history of cirrhosis ascites and varices. Recent EGD does not show actual varices. Patient is having significant abdominal pain seems to be all over some in right upper quadrant in sum mid abdomen along with abnormal stool which she describes as mucousy. Blood work does not show any significant leukocytosis or anemia. Sodium is 146, potassium 4.0 chloride 110 BUN creatinine within normal limits lactate is 2.0. Bilirubin is 2.2 previously on September 15 it was 3.1, AST 219 previously 121, ALT 103 previously 67, alk-phos 137 previously 126. Patient is quite anxious and having pain all across her abdomen she is given morphine and Ativan. I asked to look at her rectum and she declined. Currently she is not having any vomiting diarrhea she is hemodynamically stable. Records from [facility] have been received and reviewed including recent EGD Dr Nelson: Received turned over. Review patient's history and physical and workup up to this point. The CT scan that was performed last night had an over-read by Radiology today who was able to look at prior CT scans and also prior abdominal MRIs. Radiology stated that there was very little concern about an obstructive common bile duct issue today. The finding that was near this area seems to be extra luminal from the bile duct and was seen on prior CT scans and also prior MRIs. He felt that another abdominal MRI today would not add much to the patient's symptoms. I repeated the patient's labs today. Her lipase is unchanged. Her H&H is unchanged so despite the rectal bleeding she is had she does not require any blood transfusions. The abdominal pain was likely is from the colitis. I did discuss all this with the patient. She does have a GI doctor that she sees on a regular basis. We did discuss that her drinking most likely is causing all of her issues to be worse to include her liver tests. Will discharge patient home with antibiotics for the colitis. Will have her contact her primary doctor and also her GI doctor for follow-up. She was given return precautions. She did expressed understanding and agreement. She ambulated around the emergency department without issues. She tolerated oral intake. Discharge Plan Departure Patient Disposition: Home Clinical Impression: Colitis, Abdominal pain, Alcohol intoxication Instructions: DI for Abdominal Pain-Adult, DI for Colitis Activity Restrictions/Additional Instructions: I do recommend that you try to increase your fluid intake. You can advance her diet as tolerated. Take the antibiotics as directed. Contact your primary doctor for follow-up. Return to the emergency department for any new or worsening symptoms. Prescriptions: No Action levothyroxine 100 mcg capsule 100 mcg PO DAILY Xifaxan 550 MG tablet 550 mg PO BID Qty: 60 11RF pregabalin 50 mg capsule 50 mg PO TID Qty: 270 3RF spironolactone 50 mg tablet See Rx Instructions .ROUTE .COMPLEX Qty: 30 3RF Dose Instruction: TAKE 1 TABLET(50 MG) BY MOUTH DAILY Rx Instructions: TAKE 1 TABLET(50 MG) BY MOUTH DAILY nadolol 20 mg tablet See Rx Instructions .ROUTE .COMPLEX Qty: 135 3RF Dose Instruction: TAKE 1 AND 1/2 TABLETS BY MOUTH EVERY AFTERNOON/ EVENING Rx Instructions: TAKE 1 AND 1/2 TABLETS BY MOUTH EVERY AFTERNOON/ EVENING lorazepam 1 mg tablet 1 mg PO DAILY PRN (Reason: anxiety) Qty: 30 5RF liothyronine [Cytomel] 5 mcg tablet 10 mcg PO DAILY ,calc.[id number] 1 27-1 mg tablet 1 tab PO DAILY Qty: 90 3RF Rx Instructions: Take 1 tab daily for anemia potassium chloride 10 mEq tablet,ER particles/crystals 20 meq PO DAILY Qty: 30 1RF Rx Instructions: Take 2 tabs by mouth daily x7 days, then reassess magnesium 1 tab PO BID diazepam [Valium] 10 mg tablet 10 mg PO BID PRN (Reason: anxiety) Qty: 30 2RF Rx Instructions: 1 tab 60 mins prior to procedures may repeat x2 every 30 mins max 3 tabs/24 hours hydromorphone 2 mg tablet 2 mg PO Q4H PRN (Reason: pain) Qty: 30 0RF Rx Instructions: Take 1 tab by mouth every 4 hours as needed for rectal pain ondansetron 8 mg tablet,disintegrating 8 mg PO Q8H PRN (Reason: nausea and vomiting) Qty: 30 3RF Rx Instructions: Tae 1 tab by mouth every 8 hours, routinely until nausea resolved, then as needed furosemide 20 mg tablet 40 mg PO QAM Qty: 60 3RF Rx Instructions: Take 1 extra tab of 20mg (total 40mg) daily lactulose 10 gram/15 mL solution 15 - 30 ml PO 1-2XD Patient Comments: take 15 TO 30ML by mouth one to two times a day Referrals: Divina Lopes ARNP [Primary Care Provider] - Stand Alone Forms: Patient Portal/API
[2022-09-30 04:17] LABS: Add Manual Diff / Slide Review NO; Basophils Absolute Auto 100 /uL (0-100); Basophils Percent Auto 1.1 % (0-2); Eosinophils Absolute Auto 100 /uL (0-450); Hematocrit 38.3 % (36-46); Hemoglobin 13.2 g/dL (12.0-16.0); Lymphocytes Absolute Auto 3000 /uL (1100-4500); Lymphocytes Percent Auto 41.8 % (25-40); Mean Corpuscular HGB Conc 34.5 % (30-36); Mean Corpuscular Hemoglobin 33.6 PG (26-34); Mean Corpuscular Volume 97.5 fL (80-100); Monocytes Absolute Auto 400 /uL (0-900); Monocytes Percent Auto 5.3 % (3-14); Neutrophils Absolute Auto 3600 /uL (1500-7000); Neutrophils Percent Auto 49.8 % (50-75); Platelet Count 124 X10^3/uL (150-400); Red Blood Cell Count 3.92 X10^6/uL (4.0-5.2); Red Cell Distribution Width 15.6 % (11.6-14.8); White Blood Cell Count 7.1 X10^3/uL (4.5-11.0)
[2022-09-30 04:27] LABS: Alanine Aminotransferase 103 IU/L (<35); Albumin 3.9 g/dL (3.5-5.0); Albumin Globulin Ratio 0.8 (1.0-2.8); Alkaline Phosphatase 137 U/L (38-126); Aspartate Aminotransferase 219 IU/L (14-36); BUN Creatinine Ratio 20.4 (6-22); Bilirubin Total 2.2 mg/dL (0.2-1.3); Blood Urea Nitrogen 11 mg/dL (7-17); Carbon Dioxide 26 mmol/L (22-32); Chloride 110 mmol/L (98-107); Estimated Glomerular Filt Rate > 60 mL/min (>60); Globulin 4.8 g/dL (1.7-4.1); Glucose 100 mg/dL (80-110); HEMOLYSIS 37 (0-50); Lipase 611 U/L (23-300); Sodium 146 mmol/L (137-145); Total Protein 8.7 g/dL (6.3-8.2)
[2022-09-30 04:36] LABS: Ethanol (ETOH) 381 mg/dL
[2022-09-30 04:59] LABS: INR 1.4 (0.9-1.3); Prothrombin Time 16.2 SECONDS (10.1-12.7)
[2022-09-30 05:14] LABS: PTT Partial Thromboplastin Tim 40 SECONDS (26-36)
[2022-09-30] MEDS: PANTOPRAZOLE 40 MG VIAL 80 MG IV (05:28)
[2022-09-30] MEDS: OCTREOTIDE 100 MCG/ML VIAL 50 MCG IV (05:36)
[2022-09-30] MEDS: MORPHINE 2 MG/ML INJ IV ×2 (05:42→05:52)
[2022-09-30] MEDS: LORazepam 2 MG/ML INJ 1 MG IV (05:52)
[2022-09-30] MEDS: OCTREOTIDE 500 MCG in SODIUM CHLORIDE 0.9% 100 ML 5.05 MCG IV (06:12)
--- NOTE | 2022-09-30 09:50 | PC.NURSE ---
pt with large amount of bret red bloos, small BM and bright red blood from rectum filling toilet bowl. Beckie pad supplied. Pt ambulated to room with steady gait. c/o increased abd pain. Dr Nelson made aware.
[2022-09-30 10:21] LABS: Add Manual Diff / Slide Review NO; Basophils Absolute Auto 0 /uL (0-100); Basophils Percent Auto 0.7 % (0-2); Eosinophils Absolute Auto 100 /uL (0-450); Eosinophils Percent Auto 1.7 % (2-4); Hematocrit 37.4 % (36-46); Hemoglobin 12.6 g/dL (12.0-16.0); Lymphocytes Absolute Auto 2600 /uL (1100-4500); Lymphocytes Percent Auto 39.3 % (25-40); Mean Corpuscular HGB Conc 33.6 % (30-36); Mean Corpuscular Volume 98.2 fL (80-100); Monocytes Absolute Auto 500 /uL (0-900); Monocytes Percent Auto 7.4 % (3-14); Neutrophils Absolute Auto 3300 /uL (1500-7000); Neutrophils Percent Auto 50.9 % (50-75); Platelet Count 133 X10^3/uL (150-400); White Blood Cell Count 6.5 X10^3/uL (4.5-11.0)
[2022-09-30 10:53] LABS: Alanine Aminotransferase 106 IU/L (<35); Albumin 3.7 g/dL (3.5-5.0); Albumin Globulin Ratio 0.8 (1.0-2.8); Alkaline Phosphatase 136 U/L (38-126); Aspartate Aminotransferase 247 IU/L (14-36); BUN Creatinine Ratio 15.4 (6-22); Bilirubin Total 2.3 mg/dL (0.2-1.3); Blood Urea Nitrogen 10 mg/dL (7-17); Calcium 8.5 mg/dL (8.4-10.2); Carbon Dioxide 23 mmol/L (22-32); Chloride 111 mmol/L (98-107); Estimated Glomerular Filt Rate > 60 mL/min (>60); Globulin 4.4 g/dL (1.7-4.1); Glucose 87 mg/dL (80-110); HEMOLYSIS < 15 (0-50); Lipase 670 U/L (23-300); Potassium 4.2 mmol/L (3.4-5.1); Sodium 145 mmol/L (137-145); Total Protein 8.1 g/dL (6.3-8.2)
== END 2022-09-30 11:40 | disposition home or self-care (01) ==
PROVIDERS: Emergency Medicine; Emergency Provider Emergency Medicine; PCP Nurse Practitioner
DX: K52.9 Noninfective gastroenteritis and colitis, unspecified (principal); R10.11 Right upper quadrant pain; F10.129 Alcohol abuse with intoxication, unspecified; Y90.8 Blood alcohol level of 240 mg/100 ml or more
CPT/HCPCS: 36415; 74177; 80053; 80320; 83605; 83690; 85025; 85610; 85730; 86850; 86900; 86901; 96365; 96366; 96375; 99284; C9113; J2060; J2270; J2354; Q9967

== ENCOUNTER → 2022-10-20 13:00 | Outpatient (CLI) | payer OTHER, MEDICAID, SELFPAY ==
[2022-10-20 13:47] LABS: Add Manual Diff / Slide Review NO; Basophils Absolute Auto 100 /uL (0-100); Eosinophils Absolute Auto 100 /uL (0-450); Eosinophils Percent Auto 1.5 % (2-4); Hematocrit 38.4 % (36-46); Hemoglobin 13.3 g/dL (12.0-16.0); Lymphocytes Absolute Auto 1300 /uL (1100-4500); Lymphocytes Percent Auto 21.8 % (25-40); Mean Corpuscular HGB Conc 34.6 % (30-36); Mean Corpuscular Hemoglobin 32.6 PG (26-34); Mean Corpuscular Volume 94.2 fL (80-100); Monocytes Absolute Auto 600 /uL (0-900); Monocytes Percent Auto 10.5 % (3-14); Neutrophils Absolute Auto 3900 /uL (1500-7000); Neutrophils Percent Auto 65.2 % (50-75); Platelet Count 99 X10^3/uL (150-400); Red Blood Cell Count 4.08 X10^6/uL (4.0-5.2); Red Cell Distribution Width 14.4 % (11.6-14.8)
[2022-10-20 14:08] LABS: Alanine Aminotransferase 101 IU/L (<35); Albumin 3.6 g/dL (3.5-5.0); Albumin Globulin Ratio 0.9 (1.0-2.8); Alkaline Phosphatase 125 U/L (38-126); Aspartate Aminotransferase 157 IU/L (14-36); BUN Creatinine Ratio 15.1 (6-22); Bilirubin Total 3.8 mg/dL (0.2-1.3); Blood Urea Nitrogen 14 mg/dL (7-17); Calcium 9.5 mg/dL (8.4-10.2); Carbon Dioxide 32 mmol/L (22-32); Chloride 100 mmol/L (98-107); Estimated Glomerular Filt Rate > 60 mL/min (>60); Globulin 4.2 g/dL (1.7-4.1); Glucose 101 mg/dL (80-110); HEMOLYSIS < 15 (0-50); Magnesium 1.5 mg/dL (1.6-2.3); Potassium 3.3 mmol/L (3.4-5.1); Sodium 141 mmol/L (137-145); Total Protein 7.8 g/dL (6.3-8.2)
== END ==
PROVIDERS: PCP Nurse Practitioner; Referring Provider Nurse Practitioner; Visit Provider Nurse Practitioner
DX: D50.0 Iron deficiency anemia secondary to blood loss (chronic) (principal); D53.9 Nutritional anemia, unspecified; D68.9 Coagulation defect, unspecified; E83.42 Hypomagnesemia; E87.1 Hypo-osmolality and hyponatremia; E87.6 Hypokalemia; K92.2 Gastrointestinal hemorrhage, unspecified
CPT/HCPCS: 36415; 80053; 83735; 85025

== ENCOUNTER 2022-11-03 15:21 | Emergency (ER) | payer OTHER, MEDICAID, SELFPAY ==
[2022-11-03] VITALS (10 sets, daily range): BP systolic 91–149; BP diastolic 54–66; PULSE 58–71; RESP 18; TEMP 36.4; O2SAT 94–99; BMI 22.3
[2022-11-03 16:28] LABS: Add Manual Diff / Slide Review NO; Basophils Absolute Auto 100 /uL (0-100); Basophils Percent Auto 0.9 % (0-2); Eosinophils Absolute Auto 100 /uL (0-450); Eosinophils Percent Auto 1.5 % (2-4); Hematocrit 39.5 % (36-46); Hemoglobin 13.5 g/dL (12.0-16.0); Lymphocytes Absolute Auto 1700 /uL (1100-4500); Lymphocytes Percent Auto 25.7 % (25-40); Mean Corpuscular HGB Conc 34.3 % (30-36); Mean Corpuscular Hemoglobin 32.8 PG (26-34); Mean Corpuscular Volume 95.6 fL (80-100); Monocytes Absolute Auto 600 /uL (0-900); Monocytes Percent Auto 9.4 % (3-14); Neutrophils Absolute Auto 4100 /uL (1500-7000); Neutrophils Percent Auto 62.5 % (50-75); Platelet Count 113 X10^3/uL (150-400); Red Blood Cell Count 4.13 X10^6/uL (4.0-5.2); Red Cell Distribution Width 15.2 % (11.6-14.8); White Blood Cell Count 6.5 X10^3/uL (4.5-11.0)
[2022-11-03 16:33] LABS: Alanine Aminotransferase 59 IU/L (<35); Albumin Globulin Ratio 0.8 (1.0-2.8); Alkaline Phosphatase 113 U/L (38-126); Aspartate Aminotransferase 111 IU/L (14-36); BUN Creatinine Ratio 21.1 (6-22); Bilirubin Total 4.3 mg/dL (0.2-1.3); Blood Urea Nitrogen 19 mg/dL (7-17); Calcium 9.3 mg/dL (8.4-10.2); Carbon Dioxide 32 mmol/L (22-32); Chloride 101 mmol/L (98-107); Estimated Glomerular Filt Rate > 60 mL/min (>60); Globulin 4.9 g/dL (1.7-4.1); Glucose 105 mg/dL (80-110); HEMOLYSIS < 15 (0-50); Lipase 504 U/L (23-300); Potassium 3.2 mmol/L (3.4-5.1); Sodium 140 mmol/L (137-145); Total Protein 8.9 g/dL (6.3-8.2)
--- NOTE | 2022-11-03 16:51 | DI.CT.S_ITS ---
PROCEDURE: CT HEAD/BRAIN WO CON INDICATIONS: ischemic CVA 2 weeks ago, now nausea/vomiting. TECHNIQUE: Noncontrast 4.5 mm thick angled axial sections acquired from the foramen magnum to the vertex, with coronal and sagittal reformats. For radiation dose reduction, the following was used: automated exposure control, adjustment of mA and/or kV according to patient size. COMPARISON: [facility], CT, CT CERVICAL SPINE WITHOUT CONTRAST, 10/13/2022, 14:13. [facility], MR, MR BRAIN WITHOUT CONTRAST, 10/08/2022, 10:31. [facility], CT, CT HEAD/BRAIN WO CON, 11/02/2021, 1:58. FINDINGS: Image quality: Excellent. CSF spaces: Basal cisterns are patent. No extra-axial fluid collections. Ventricles are normal in size and shape. Brain: No midline shift. No intracranial masses or hemorrhage. Rich-white matter interface is normal. Skull and face: Calvarium and visualized facial bones are intact, without suspicious lesions. Sinuses: Visualized sinuses and mastoids are clear. IMPRESSION: 1. No acute intracranial process. Dictated by: Rosalba Downey M.D. on 11/03/2022 at 17:16 Approved by: Rosalba Downey M.D. on 11/03/2022 at 17:17
[2022-11-03] MEDS: SODIUM CHLORIDE 0.9% 1,000 ML 1000 ML IV ×2 (17:08→18:11)
[2022-11-03] MEDS: ONDANSETRON 4 MG/2 ML INJ IV (17:08)
[2022-11-03 17:20] LABS: Ethanol (ETOH) < 10 mg/dL
[2022-11-03 17:43] LABS: Magnesium 1.6 mg/dL (1.6-2.3)
--- NOTE | 2022-11-03 18:57 | ED.GENADULT ---
HPI - General Adult General Chief complaint: Abdominal Pain Stated complaint: Dr. Lopes sent her in for fluids. Time Seen by Provider: 11/03/22 16:04 Source: patient Mode of arrival: Ambulatory History of Present Illness HPI narrative: Patient is a 62-year-old female who does have history of alcohol abuse. Reported they had a ischemic stroke 2 weeks ago. She is currently at home now with minimal residual deficits. States that for the past 4 days she is had vomiting and nausea. No diarrhea. No recent antibiotics. She was sent by her primary doctor for IV fluids. She states she is having some abdominal cramping. The nausea in the cramping seem to come in waves. Vomiting does improve his symptoms for very short period of time. Denies chest pain or shortness of breath. CT scan was ordered prior to my evaluation because of the vomiting and her history of alcohol abuse. Related Data Home Medications Medication Instructions Recorded Confirmed liothyronine 5 mcg tablet (Cytomel) 10 mcg PO DAILY 05/31/18 10/16/22 magnesium 1 tab PO BID 10/01/22 10/16/22 lactulose 10 gram/15 mL oral 15 - 30 ml PO DAILY PRN 10/16/22 10/16/22 solution constipation Previous Rx's Medication Instructions Recorded rifaximin 550 mg tablet (Xifaxan) 550 mg PO BID #60 tabs 09/16/16 vit,calcium no.40-iron 1 tab PO DAILY #90 tabs 03/20/22 fum 27 mg iron-folate no.1 1 mg tablet nadolol 20 mg tablet See Rx Instructions .Route 07/21/22 .COMPLEX #135 tabs ondansetron 8 mg disintegrating 8 mg PO Q8H PRN nausea and 10/01/22 tablet vomiting #30 tabs furosemide 20 mg tablet 40 mg PO QAM #60 tabs 10/16/22 lorazepam 1 mg tablet 1 mg PO DAILY PRN anxiety #30 tabs 10/16/22 potassium chloride 10 mEq 20 meq PO DAILY #30 tabs 10/16/22 tablet,extended release(part/cryst) pregabalin 50 mg capsule 50 mg PO TID #270 caps 10/16/22 spironolactone 50 mg tablet See Rx Instructions .Route 10/16/22 .COMPLEX #30 tabs clobetasol 0.05 % topical ointment 1 applic topical QAM AND QPM #30 10/20/22 grams levothyroxine 100 mcg capsule 100 mcg PO DAILY #90 caps 10/20/22 metoclopramide HCl 10 mg tablet 10 mg PO Q6H PRN nausea and 11/03/22 (Reglan) vomiting #14 tabs Allergies Allergy/AdvReac Type Severity Reaction Status Date / Time No Known Drug Allergies Allergy Verified 11/03/22 15:37 Review of Systems Constitutional Constitutional: Reports system reviewed and no additional complaints, except as documented ENT Ears, Nose, Mouth, and Throat: Reports system reviewed and no additional complaints, except as documented Cardiovascular Cardiovascular: Reports system reviewed and no additional complaints, except as documented Respiratory Respiratory: Reports system reviewed and no additional complaints, except as documented Gastrointestinal Gastrointestinal: Reports system reviewed and no additional complaints, except as documented Genitourinary Genitourinary: Reports system reviewed and no additional complaints, except as documented Integumentary/Breasts Skin/Breast: Reports system reviewed and no additional complaints, except as documented Hematologic/Lymphatic On Anticoagulants: No Patient History Medical History Alcohol use disorder, severe, in early remission Anemia, blood loss Anemia, macrocytic Anxiety Ascites due to alcoholic cirrhosis Atrial fibrillation Cardiac arrhythmia Chicken pox Cirrhosis (2012) Coagulation disorder (2012) Depression Eczema (2014) EV (esophageal varices) (10/2015) GERD (gastroesophageal reflux disease) GI bleeding (2015) Hemorrhoids, internal History of alcohol abuse (12/27/15) History of blood transfusion (10/2015) History of heavy periods (2014) Hypercalcemia Hypertension Hypothyroidism Intermittent palpitations (04/2019) Measles Mumps Nonalcoholic fatty liver disease Ovarian cyst (2012) Painful menstrual periods (2012) Pancreatitis Portal hypertensive gastropathy (05/2015) Psoriasis (2014) PTSD (post-traumatic stress disorder) (1999) SBO (small bowel obstruction) Shortness of breath Stroke Weakness of left upper extremity Weight gain Surgical History H/O bilateral oophorectomy History of appendectomy History of cholecystectomy History of esophagogastroduodenoscopy (EGD) (01/2009) History of esophagogastroduodenoscopy (EGD) (05/2015) History of inguinal hernia repair Status post appendectomy Status post colonoscopy (01/2009) Status post hernia repair Status post hysteroscopy (06/17/11) Status post laparoscopic supracervical hysterectomy (08/25/16) Family History Grandfather Heart disease [place] (myocardial infarction) Grandmother Alcoholism Father No problems noted. Mother No problems noted. Grandfather Heart disease Grandmother Colon cancer Brother No problems noted. Social History Smoking Status: Never smoker alcohol intake: current Smoking Status: Never smoker alcohol intake frequency: holidays/special occasions only Substance Use Type: does not use Exam Initial Vital Signs Initial Vital Signs: Vital Signs Temperature 97.6 F 11/03/22 15:34 Pulse Rate 60 11/03/22 15:34 Respiratory Rate 18 11/03/22 15:34 Blood Pressure 149/63 H 11/03/22 15:34 Pulse Oximetry 96 11/03/22 15:34 Oxygen Delivery Method Room Air 11/03/22 15:34 Const General: cooperative, comfortable and No ill appearing HENMT Head: normal to inspection and normocephalic Resp Effort & Inspection: normal respiratory effort Auscultation: clear to auscultation bilaterally Cardio Rate: regular rate Rhythm: regular rhythm GI Inspection: normal to inspection Skin General: no rashes or lesions noted Neuro General: patient alert, patient awake and moves all extremities Extrem General: normal to inspection and capillary refill normal Course Orders Ordered: ED Orders 11/03/22 15:37 EKG-12 Lead Stat 11/03/22 16:00 Complete Blood Count AUTO DIFF Stat Comprehensive Metabolic Panel Stat Ethanol (ETOH) Stat Lipase Stat MAG [Magnesium] Stat 11/03/22 16:51 CT head/brain wo con Stat Discontinued Medications Sodium Chloride (Normal Saline 0.9%) 1,000 mls @ 1,000 mls/hr IV BOLUS ONE Stop: 11/03/22 17:50 Last Infusion: 11/03/22 18:05 Dose: 0 mls/hr Documented By: Admin: 11/03/22 17:08 Dose: 1,000 mls/hr Documented By: AT Sodium Chloride (Normal Saline 0.9%) 1,000 mls @ 1,000 mls/hr IV BOLUS ONE Stop: 11/03/22 19:02 Last Infusion: 11/03/22 19:13 Dose: 0 mls/hr Documented By: Admin: 11/03/22 18:11 Dose: 1,000 mls/hr Documented By: DINESH Metoclopramide HCl (Metoclopramide 10 Mg/2 Ml Inj) 10 mg IV NOW ONE Stop: 11/03/22 18:57 Last Admin: 11/03/22 19:08 Dose: 10 mg Documented By: AT Ondansetron HCl (Ondansetron 4 Mg Odt) 4 mg PO NOW PRN PRN Reason: Nausea And Vomiting Ondansetron HCl (Ondansetron 4 Mg/2 Ml Inj) 4 mg IV NOW PRN PRN Reason: Nausea And Vomiting Last Admin: 11/03/22 17:08 Dose: 4 mg Documented By: AT Vital Signs Vital signs: Vital Signs - 8 hr 11/03/22 15:34 11/03/22 17:13 11/03/22 17:30 Temperature 97.6 F Pulse Rate 60 62 Respiratory Rate 18 Blood Pressure 149/63 H 129/59 L 116/66 Pulse Oximetry 96 99 Oxygen Delivery Method Room Air 11/03/22 17:30 11/03/22 18:00 11/03/22 18:00 Temperature Pulse Rate 58 L 67 Respiratory Rate Blood Pressure 109/61 Pulse Oximetry 99 97 Oxygen Delivery Method Room Air 11/03/22 18:30 11/03/22 19:00 11/03/22 19:08 Temperature Pulse Rate 60 68 63 Respiratory Rate Blood Pressure Pulse Oximetry 97 98 Oxygen Delivery Method Room Air 11/03/22 19:09 11/03/22 19:09 11/03/22 19:29 Temperature Pulse Rate 61 70 Respiratory Rate Blood Pressure 118/63 Pulse Oximetry 98 95 Oxygen Delivery Method 11/03/22 19:30 11/03/22 19:30 Temperature Pulse Rate 71 Respiratory Rate 18 Blood Pressure 91/54 L Pulse Oximetry 94 Oxygen Delivery Method Medical Decision Making Medical Records Medical records reviewed: Yes I reviewed the patient's medical records. Lab Data Lab results reviewed: Yes I reviewed the patient's lab results. 11/03/22 16:00 11/03/22 16:00 Labs: Lab Results 11/03/22 11/03/22 11/03/22 Range/Units 16:00 16:00 16:00 WBC 6.5 (4.5-11.0) X10^3/uL RBC 4.13 (4.0-5.2) X10^6/uL Hgb 13.5 (12.0-16.0) g/dL Hct 39.5 (36-46) % MCV 95.6 (80-100) fL MCH 32.8 (26-34) PG MCHC 34.3 (30-36) % RDW 15.2 H (11.6-14.8) % Plt Count 113 L (150-400) X10^3/uL Neut % (Auto) 62.5 (50-75) % Lymph % (Auto) 25.7 (25-40) % Cavalier % (Auto) 9.4 (3-14) % Eos % (Auto) 1.5 L (2-4) % Baso % (Auto) 0.9 (0-2) % Neut # (Auto) 4100 (4723-0575) /uL Lymph # (Auto) 1700 (0832-2633) /uL Cavalier # (Auto) 600 (0-900) /uL Eos # (Auto) 100 (0-450) /uL Baso # (Auto) 100 (0-100) /uL Sodium 140 (137-145) mmol/L Potassium 3.2 L (3.4-5.1) mmol/L Chloride 101 (98-107) mmol/L Carbon Dioxide 32 (22-32) mmol/L BUN 19 H (7-17) mg/dL Creatinine 0.90 (0.52-1.04) mg/dL Estimated GFR > 60 (>60) mL/min BUN/Creatinine Ratio 21.1 (6-22) Glucose 105 (80-110) mg/dL Calcium 9.3 (8.4-10.2) mg/dL Magnesium (1.6-2.3) mg/dL Total Bilirubin 4.3 H (0.2-1.3) mg/dL AST 111 H (14-36) IU/L ALT 59 H (<35) IU/L Alkaline Phosphatase 113 (38-126) U/L Total Protein 8.9 H (6.3-8.2) g/dL Albumin 4.0 (3.5-5.0) g/dL Globulin 4.9 H (1.7-4.1) g/dL Albumin/Globulin Ratio 0.8 L (1.0-2.8) Lipase 504 H (23-300) U/L Ethyl Alcohol < 10 ( - 10) mg/dL 11/03/22 Range/Units 16:00 WBC (4.5-11.0) X10^3/uL RBC (4.0-5.2) X10^6/uL Hgb (12.0-16.0) g/dL Hct (36-46) % MCV (80-100) fL MCH (26-34) PG MCHC (30-36) % RDW (11.6-14.8) % Plt Count (150-400) X10^3/uL Neut % (Auto) (50-75) % Lymph % (Auto) (25-40) % Cavalier % (Auto) (3-14) % Eos % (Auto) (2-4) % Baso % (Auto) (0-2) % Neut # (Auto) (9212-2329) /uL Lymph # (Auto) (7125-4335) /uL Cavalier # (Auto) (0-900) /uL Eos # (Auto) (0-450) /uL Baso # (Auto) (0-100) /uL Sodium (137-145) mmol/L Potassium (3.4-5.1) mmol/L Chloride (98-107) mmol/L Carbon Dioxide (22-32) mmol/L BUN (7-17) mg/dL Creatinine (0.52-1.04) mg/dL Estimated GFR (>60) mL/min BUN/Creatinine Ratio (6-22) Glucose (80-110) mg/dL Calcium (8.4-10.2) mg/dL Magnesium 1.6 (1.6-2.3) mg/dL Total Bilirubin (0.2-1.3) mg/dL AST (14-36) IU/L ALT (<35) IU/L Alkaline Phosphatase (38-126) U/L Total Protein (6.3-8.2) g/dL Albumin (3.5-5.0) g/dL Globulin (1.7-4.1) g/dL Albumin/Globulin Ratio (1.0-2.8) Lipase (23-300) U/L Ethyl Alcohol ( - 10) mg/dL Imaging Data CT scan - head: Radiologist's Impression: PROCEDURE:? CT HEAD/BRAIN WO CON ? INDICATIONS:? ischemic CVA 2 weeks ago, now nausea/vomiting. ? TECHNIQUE:? Noncontrast 4.5 mm thick angled axial sections acquired from the foramen magnum to the vertex, with coronal and sagittal reformats.? For radiation dose reduction, the following was used:? automated exposure control, adjustment of mA and/or kV according to patient size.? ? COMPARISON:? [facility], CT, CT CERVICAL SPINE WITHOUT CONTRAST, 10/13/2022, 14:13.? [facility], MR, MR BRAIN WITHOUT CONTRAST, 10/08/2022, 10:31.? [facility], CT, CT HEAD/BRAIN WO CON, 11/02/2021, 1:58. ? FINDINGS:? Image quality:? Excellent.? ? CSF spaces:? Basal cisterns are patent.? No extra-axial fluid collections.? Ventricles are normal in size and shape.? ? Brain:? No midline shift.? No intracranial masses or hemorrhage.? Rich-white matter interface is normal.? ? Skull and face:? Calvarium and visualized facial bones are intact, without suspicious lesions.? ? Sinuses:? Visualized sinuses and mastoids are clear.? ? IMPRESSION:? ? 1. No acute intracranial process. MDM Narrative Medical decision making narrative: It does seem that the Reglan improved her symptoms more than the Zofran. She was able to tolerate a small amount of oral fluids. Her head CT and labs are unremarkable. She is not having diarrhea but I would not be surprised if this does not start over the next couple days and I did discuss this with her. Will send her home with a prescription for Reglan. She does have Zofran at home. No indication for admission to the hospital. She was given return precautions. She expressed understanding and agreement. Discharge Plan Departure Patient Disposition: Home Clinical Impression: Vomiting Instructions: DI for Vomiting -- Adult Activity Restrictions/Additional Instructions: I do recommend that you use the nausea medication as needed. Be sure that you were increasing your fluid intake by drinking small amounts more frequently. I would not be surprised if you develop some diarrhea over the next couple days. If this happens just be sure that you are drinking plenty of fluids. Contact your primary doctor for follow-up. Return to the emergency department for new symptoms. Prescriptions: New metoclopramide HCl [Reglan] 10 mg tablet 10 mg PO Q6H PRN (Reason: nausea and vomiting) Qty: 14 0RF No Action Xifaxan 550 MG tablet 550 mg PO BID Qty: 60 11RF nadolol 20 mg tablet See Rx Instructions .ROUTE .COMPLEX Qty: 135 3RF Dose Instruction: TAKE 1 AND 1/2 TABLETS BY MOUTH EVERY AFTERNOON/ EVENING Rx Instructions: TAKE 1 AND 1/2 TABLETS BY MOUTH EVERY AFTERNOON/ EVENING levothyroxine 100 mcg capsule 100 mcg PO DAILY Qty: 90 3RF liothyronine [Cytomel] 5 mcg tablet 10 mcg PO DAILY ,[id number] 1 27-1 mg tablet 1 tab PO DAILY Qty: 90 3RF Rx Instructions: Take 1 tab daily for anemia lactulose 10 gram/15 mL solution 15 - 30 ml PO DAILY PRN (Reason: constipation) Patient Comments: Take 30mL daily if pt does not have 3 BMs per day furosemide 20 mg tablet 40 mg PO QAM Qty: 60 3RF Rx Instructions: Take 1 extra tab of 20mg (total 40mg) daily lorazepam 1 mg tablet 1 mg PO DAILY PRN (Reason: anxiety) Qty: 30 5RF potassium chloride 10 mEq tablet,ER particles/crystals 20 meq PO DAILY Qty: 30 1RF Rx Instructions: Take 2 tabs by mouth daily x7 days, then reassess pregabalin 50 mg capsule 50 mg PO TID Qty: 270 3RF spironolactone 50 mg tablet See Rx Instructions .ROUTE .COMPLEX Qty: 30 3RF Dose Instruction: TAKE 1 TABLET(50 MG) BY MOUTH DAILY Rx Instructions: TAKE 1 TABLET(50 MG) BY MOUTH DAILY magnesium 1 tab PO BID ondansetron 8 mg tablet,disintegrating 8 mg PO Q8H PRN (Reason: nausea and vomiting) Qty: 30 3RF Rx Instructions: Tae 1 tab by mouth every 8 hours, routinely until nausea resolved, then as needed clobetasol 0.05 % ointment 1 applic topical QAM AND QPM Qty: 30 3RF Rx Instructions: Apply to itchy leg twice per day x2 weeks total. Referrals: Divina Lopes ARNP [Primary Care Provider] - Stand Alone Forms: Patient Portal/API
[2022-11-03] MEDS: METOCLOPRAMIDE 10 MG/2 ML INJ IV (19:08)
== END 2022-11-03 19:58 | disposition home or self-care (01) ==
PROVIDERS: Emergency Medicine; Emergency Provider Emergency Medicine; PCP Nurse Practitioner
DX: R11.2 Nausea with vomiting, unspecified (principal); R10.9 Unspecified abdominal pain; Z86.73 Personal history of transient ischemic attack (TIA), and cerebral infarction without residual deficits
CPT/HCPCS: 70450; 80053; 80320; 83690; 83735; 85025; 93005; 93010; 96361; 96374; 96375; 99284; J2405; J2765

== ENCOUNTER 2022-11-10 | Emergency (ER) | payer OTHER, MEDICAID, SELFPAY ==
[2022-11-10] VITALS (52 sets, daily range): BP systolic 68–139; BP diastolic 43–72; PULSE 65–89; RESP 16–26; O2SAT 89–97; BMI 20.9
--- NOTE | 2022-11-10 00:50 | PC.NURSE ---
Patient climbed to the end of the bed as she stated she has to use the bathroom. Staff provided a commode to be at bedside. Patient was able to transfer to the commode with some reassurance and staff help. After patient voided patient tried to stand up between the commode and the bed and patient decided to begin to bend her knees and put her upper half onto the bed in a praying position. Additional staff required to get patient back onto the bed from kneeling onto the floor. Patient refused and was unable to stand at all. Staff physically had to lift patient back into the bed. Bedpan to be used going forward at this time.
--- NOTE | 2022-11-10 01:11 | ED.GENADULT ---
HPI - General Adult <Tiana Walton MD - Last Filed: 11/10/22 23:40> General Chief complaint: Toxicology Problem Stated complaint: ETOH Time Seen by Provider: 11/10/22 01:10 Source: patient and EMS Mode of arrival: EMS History of Present Illness HPI narrative: 62-year-old woman with a long history of alcohol use disorder, end-stage liver disease with ascites, esophageal varices post banding, chronic pancreatitis, chronic anemia with alcoholic cirrhosis, hypertension, hypothyroidism presents with acute intoxication. In reviewing recent medical records there is indications that she is had a recent stroke however in reviewing hospital admission and discharge summary to [facility] from 10/07 through 10/14 indicate that she was being seen for GI bleeding with nonerosive gastritis, paroxysmal atrial fibrillation and at that time was noted to have left upper extremity weakness that was worked up as a stroke however MRI of the brain did not show acute stroke as a final diagnosis and home PT was recommended for Left sided weakness. Ani has done relatively well in avoiding acute alcohol use over the last years but presents tonight severely intoxicated and continuing to perseverate on the fact that she is ?frightened?. EMS reports that she called 911 herself complaining that she had been drinking and was bleeding. On their arrival they noted that she was significantly intoxicated and having difficulty even finishing sentences. On arrival in the emergency department she is clearly intoxicated, clearly anxious but not showing any signs of active bleeding. Related Data Home Medications Medication Instructions Recorded Confirmed liothyronine 5 mcg tablet (Cytomel) 10 mcg PO DAILY 05/31/18 10/16/22 magnesium 1 tab PO BID 10/01/22 10/16/22 lactulose 10 gram/15 mL oral 15 - 30 ml PO DAILY PRN 10/16/22 10/16/22 solution constipation Previous Rx's Medication Instructions Recorded rifaximin 550 mg tablet (Xifaxan) 550 mg PO BID #60 tabs 09/16/16 vit,calcium no.40-iron 1 tab PO DAILY #90 tabs 03/20/22 fum 27 mg iron-folate no.1 1 mg tablet nadolol 20 mg tablet See Rx Instructions .Route 07/21/22 .COMPLEX #135 tabs ondansetron 8 mg disintegrating 8 mg PO Q8H PRN nausea and 10/01/22 tablet vomiting #30 tabs furosemide 20 mg tablet 40 mg PO QAM #60 tabs 10/16/22 lorazepam 1 mg tablet 1 mg PO DAILY PRN anxiety #30 tabs 10/16/22 potassium chloride 10 mEq 20 meq PO DAILY #30 tabs 10/16/22 tablet,extended release(part/cryst) pregabalin 50 mg capsule 50 mg PO TID #270 caps 10/16/22 spironolactone 50 mg tablet See Rx Instructions .Route 10/16/22 .COMPLEX #30 tabs clobetasol 0.05 % topical ointment 1 applic topical QAM AND QPM #30 10/20/22 grams levothyroxine 100 mcg capsule 100 mcg PO DAILY #90 caps 10/20/22 metoclopramide HCl 10 mg tablet 10 mg PO Q6H PRN nausea and 11/03/22 (Reglan) vomiting #14 tabs Allergies Allergy/AdvReac Type Severity Reaction Status Date / Time No Known Drug Allergies Allergy Verified 11/03/22 15:37 Review of Systems <Tiana Walton MD - Last Filed: 11/10/22 23:40> Review of Systems ROS Unobtainable: Unobtainable due to mental status/LOC Patient History <Tiana Walton MD - Last Filed: 11/10/22 23:40> Medical History Alcohol use disorder, severe, in early remission Anemia, blood loss Anemia, macrocytic Anxiety Ascites due to alcoholic cirrhosis Atrial fibrillation Cardiac arrhythmia Chicken pox Cirrhosis (2012) Coagulation disorder (2012) Depression Eczema (2014) EV (esophageal varices) (10/2015) GERD (gastroesophageal reflux disease) GI bleeding (2015) Hemorrhoids, internal History of alcohol abuse (12/27/15) History of blood transfusion (10/2015) History of heavy periods (2014) Hypercalcemia Hypertension Hypothyroidism Intermittent palpitations (04/2019) Measles Mumps Nonalcoholic fatty liver disease Ovarian cyst (2012) Painful menstrual periods (2012) Pancreatitis Portal hypertensive gastropathy (05/2015) Psoriasis (2014) PTSD (post-traumatic stress disorder) (1999) SBO (small bowel obstruction) Shortness of breath Stroke Weakness of left upper extremity Weight gain Surgical History H/O bilateral oophorectomy History of appendectomy History of cholecystectomy History of esophagogastroduodenoscopy (EGD) (01/2009) History of esophagogastroduodenoscopy (EGD) (05/2015) History of inguinal hernia repair Status post appendectomy Status post colonoscopy (01/2009) Status post hernia repair Status post hysteroscopy (06/17/11) Status post laparoscopic supracervical hysterectomy (08/25/16) Family History Grandfather Heart disease GA (myocardial infarction) Grandmother Alcoholism Father No problems noted. Mother No problems noted. Grandfather Heart disease Grandmother Colon cancer Brother No problems noted. Social History Smoking Status: Never smoker alcohol intake: current Smoking Status: Never smoker alcohol intake frequency: holidays/special occasions only Substance Use Type: does not use Exam <Tiana Walton MD - Last Filed: 11/10/22 23:40> Initial Vital Signs Initial Vital Signs: Vital Signs Pulse Rate 80 11/10/22 00:06 Respiratory Rate 26 H 11/10/22 00:06 Blood Pressure 110/69 11/10/22 00:06 Pulse Oximetry 93 11/10/22 00:06 Oxygen Delivery Method Room Air 11/10/22 00:06 General: Disheveled, acutely intoxicated HEENT: Moist mucous membranes, mildly icteric sclera with reactive pupils, no signs of vomitus or bloody emesis Respiratory: Lungs are clear to auscultation, no wheezing no rales no rhonchi. Full and symmetrical air movement Cardiac: Regular rate and rhythm no murmurs no bruits Abdomen: Soft, mild ascites but no pain behaviors with palpation. Skin: Moderately jaundiced, various bruises in various stages of healing none appear acute. Neurologic: Moving all extremities, acutely intoxicated Extremities: No trauma, Psych: Distractible, perseverating anxious and frightened <Tima Nelson DO - Last Filed: 11/10/22 11:20> Initial Vital Signs Initial Vital Signs: Vital Signs Pulse Rate 80 11/10/22 00:06 Respiratory Rate 26 H 11/10/22 00:06 Blood Pressure 110/69 11/10/22 00:06 Pulse Oximetry 93 11/10/22 00:06 Oxygen Delivery Method Room Air 11/10/22 00:06 Course <Tiana Walton MD - Last Filed: 11/10/22 23:40> Orders Ordered: Discontinued Medications Haloperidol (Haloperidol 5 Mg/Ml Vial) 10 mg IV NOW ONE Stop: 11/10/22 02:11 Last Admin: 11/10/22 02:25 Dose: 10 mg Documented By: JONNA Sodium Chloride (Normal Saline 0.9%) 1,000 mls @ 1,000 mls/hr IV BOLUS ONE Stop: 11/10/22 02:11 Last Infusion: 11/10/22 02:47 Dose: 0 mls/hr Documented By: Admin: 11/10/22 01:44 Dose: 1,000 mls/hr Documented By: SOPHIE Thiamine HCl 100 mg/ Sodium (Chloride) 101 mls @ 404 mls/hr IV NOW ONE Stop: 11/10/22 01:13 Last Infusion: 11/10/22 02:14 Dose: 0 mls/hr Documented By: Admin: 11/10/22 01:32 Dose: 404 mls/hr Documented By: SOPHIE Thiamine HCl 100 mg/ Sodium (Chloride) 101 mls @ 404 mls/hr IV NOW ONE Stop: 11/10/22 01:39 Last Admin: 11/10/22 01:51 Dose: Not Given Documented By: LEIGH Sodium Chloride (Normal Saline 0.9%) 1,000 mls @ 1,000 mls/hr IV BOLUS ONE Stop: 11/10/22 09:38 Last Infusion: 11/10/22 09:44 Dose: 0 mls/hr Documented By: Infusion: 11/10/22 09:44 Dose: 0 mls/hr Documented By: Admin: 11/10/22 08:45 Dose: 1,000 mls/hr Documented By: PIPPA Midazolam HCl (Midazolam 2 Mg/2 Ml Vial) 2 mg IV NOW ONE Stop: 11/10/22 01:38 Last Admin: 11/10/22 01:46 Dose: 2 mg Documented By: SOPHIE Ondansetron HCl (Ondansetron 4 Mg/2 Ml Inj) 4 mg IV NOW ONE Stop: 11/10/22 01:13 Last Admin: 11/10/22 01:32 Dose: 4 mg Documented By: SOPHIE Vital Signs Vital signs: Vital Signs - 8 hr 11/10/22 06:50 11/10/22 07:00 11/10/22 07:30 Pulse Rate 65 68 72 Respiratory Rate 16 Blood Pressure 93/52 L Pulse Oximetry 95 93 91 Oxygen Delivery Method Room Air 11/10/22 08:00 11/10/22 08:30 11/10/22 08:36 Pulse Rate 78 76 79 Respiratory Rate Blood Pressure Pulse Oximetry 92 Oxygen Delivery Method 11/10/22 08:38 11/10/22 08:38 11/10/22 08:45 Pulse Rate 86 89 Respiratory Rate Blood Pressure 85/51 L Pulse Oximetry 92 92 Oxygen Delivery Method 11/10/22 08:50 11/10/22 08:55 11/10/22 09:00 Pulse Rate 78 77 Respiratory Rate Blood Pressure 79/53 L Pulse Oximetry 92 92 Oxygen Delivery Method 11/10/22 09:00 11/10/22 09:04 11/10/22 09:05 Pulse Rate 76 78 Respiratory Rate Blood Pressure 94/56 L Pulse Oximetry 92 Oxygen Delivery Method 11/10/22 09:05 11/10/22 09:10 11/10/22 09:10 Pulse Rate 77 76 Respiratory Rate Blood Pressure 86/53 L Pulse Oximetry 93 92 Oxygen Delivery Method 11/10/22 09:15 11/10/22 09:15 11/10/22 09:20 Pulse Rate 76 Respiratory Rate Blood Pressure 89/54 L 80/50 L Pulse Oximetry 92 Oxygen Delivery Method 11/10/22 09:20 11/10/22 09:22 11/10/22 09:22 Pulse Rate 76 77 Respiratory Rate Blood Pressure 78/51 L Pulse Oximetry 91 92 Oxygen Delivery Method 11/10/22 09:25 11/10/22 09:25 11/10/22 09:30 Pulse Rate 79 Respiratory Rate Blood Pressure 81/60 L 86/61 L Pulse Oximetry 92 Oxygen Delivery Method 11/10/22 09:30 11/10/22 09:35 11/10/22 09:35 Pulse Rate 83 80 Respiratory Rate Blood Pressure 82/49 L Pulse Oximetry 95 94 Oxygen Delivery Method 11/10/22 09:39 11/10/22 09:39 11/10/22 09:40 Pulse Rate 70 Respiratory Rate Blood Pressure 80/49 L 78/48 L Pulse Oximetry 94 Oxygen Delivery Method 11/10/22 09:40 11/10/22 09:43 11/10/22 09:43 Pulse Rate 70 75 Respiratory Rate Blood Pressure 88/54 L Pulse Oximetry 94 96 Oxygen Delivery Method 11/10/22 09:45 11/10/22 09:45 11/10/22 09:50 Pulse Rate 73 Respiratory Rate Blood Pressure 90/54 L 77/52 L Pulse Oximetry 96 Oxygen Delivery Method 11/10/22 09:50 11/10/22 09:52 11/10/22 09:52 Pulse Rate 70 70 Respiratory Rate Blood Pressure 85/51 L Pulse Oximetry 92 92 Oxygen Delivery Method 11/10/22 09:55 11/10/22 09:55 11/10/22 09:56 Pulse Rate 68 74 Respiratory Rate Blood Pressure 68/43 L Pulse Oximetry 92 92 Oxygen Delivery Method Room Air 11/10/22 09:56 11/10/22 10:00 11/10/22 10:01 Pulse Rate 82 Respiratory Rate Blood Pressure 86/52 L 129/59 L Pulse Oximetry 95 Oxygen Delivery Method 11/10/22 10:01 11/10/22 10:05 11/10/22 10:05 Pulse Rate 82 78 Respiratory Rate Blood Pressure 102/58 L Pulse Oximetry 95 96 Oxygen Delivery Method 11/10/22 10:10 11/10/22 10:10 11/10/22 10:15 Pulse Rate 80 Respiratory Rate Blood Pressure 107/64 113/70 Pulse Oximetry 96 Oxygen Delivery Method 11/10/22 10:15 11/10/22 10:20 11/10/22 10:20 Pulse Rate 83 85 Respiratory Rate Blood Pressure 95/55 L Pulse Oximetry 93 95 Oxygen Delivery Method 11/10/22 10:29 11/10/22 10:30 11/10/22 10:30 Pulse Rate 72 Respiratory Rate Blood Pressure 119/56 L Pulse Oximetry 96 94 Oxygen Delivery Method 11/10/22 10:31 11/10/22 10:31 11/10/22 10:35 Pulse Rate 82 83 Respiratory Rate Blood Pressure 103/59 L Pulse Oximetry 97 95 Oxygen Delivery Method 11/10/22 10:36 11/10/22 10:36 11/10/22 10:40 Pulse Rate 77 Respiratory Rate Blood Pressure 135/70 139/72 Pulse Oximetry 89 L Oxygen Delivery Method 11/10/22 10:40 11/10/22 10:45 11/10/22 10:45 Pulse Rate 76 81 Respiratory Rate Blood Pressure 122/60 Pulse Oximetry 97 94 Oxygen Delivery Method 11/10/22 10:50 11/10/22 10:50 11/10/22 10:55 Pulse Rate 76 Respiratory Rate Blood Pressure 105/50 L 106/71 Pulse Oximetry 95 Oxygen Delivery Method 11/10/22 10:55 11/10/22 11:00 11/10/22 11:00 Pulse Rate 77 76 Respiratory Rate Blood Pressure 90/53 L Pulse Oximetry 96 94 Oxygen Delivery Method 11/10/22 11:05 11/10/22 11:05 11/10/22 11:06 Pulse Rate 71 Respiratory Rate Blood Pressure 81/50 L 83/52 L Pulse Oximetry 92 Oxygen Delivery Method 11/10/22 11:06 11/10/22 11:07 11/10/22 11:07 Pulse Rate 71 79 Respiratory Rate Blood Pressure 88/64 L Pulse Oximetry 95 95 Oxygen Delivery Method 11/10/22 11:10 Pulse Rate 75 Respiratory Rate Blood Pressure Pulse Oximetry 95 Oxygen Delivery Method <Tima Nelson DO - Last Filed: 11/10/22 11:20> Orders Ordered: Discontinued Medications Haloperidol (Haloperidol 5 Mg/Ml Vial) 10 mg IV NOW ONE Stop: 11/10/22 02:11 Last Admin: 11/10/22 02:25 Dose: 10 mg Documented By: JONNA Sodium Chloride (Normal Saline 0.9%) 1,000 mls @ 1,000 mls/hr IV BOLUS ONE Stop: 11/10/22 02:11 Last Infusion: 11/10/22 02:47 Dose: 0 mls/hr Documented By: Admin: 11/10/22 01:44 Dose: 1,000 mls/hr Documented By: SOPHIE Thiamine HCl 100 mg/ Sodium (Chloride) 101 mls @ 404 mls/hr IV NOW ONE Stop: 11/10/22 01:13 Last Infusion: 11/10/22 02:14 Dose: 0 mls/hr Documented By: Admin: 11/10/22 01:32 Dose: 404 mls/hr Documented By: SOPHIE Thiamine HCl 100 mg/ Sodium (Chloride) 101 mls @ 404 mls/hr IV NOW ONE Stop: 11/10/22 01:39 Last Admin: 11/10/22 01:51 Dose: Not Given Documented By: HNG Sodium Chloride (Normal Saline 0.9%) 1,000 mls @ 1,000 mls/hr IV BOLUS ONE Stop: 11/10/22 09:38 Last Infusion: 11/10/22 09:44 Dose: 0 mls/hr Documented By: Infusion: 11/10/22 09:44 Dose: 0 mls/hr Documented By: Admin: 11/10/22 08:45 Dose: 1,000 mls/hr Documented By: PIPPA Midazolam HCl (Midazolam 2 Mg/2 Ml Vial) 2 mg IV NOW ONE Stop: 11/10/22 01:38 Last Admin: 11/10/22 01:46 Dose: 2 mg Documented By: SOPHIE Ondansetron HCl (Ondansetron 4 Mg/2 Ml Inj) 4 mg IV NOW ONE Stop: 11/10/22 01:13 Last Admin: 11/10/22 01:32 Dose: 4 mg Documented By: SOPHIE Vital Signs Vital signs: Vital Signs - 8 hr 11/10/22 06:50 11/10/22 07:00 11/10/22 07:30 Pulse Rate 65 68 72 Respiratory Rate 16 Blood Pressure 93/52 L Pulse Oximetry 95 93 91 Oxygen Delivery Method Room Air 11/10/22 08:00 11/10/22 08:30 11/10/22 08:36 Pulse Rate 78 76 79 Respiratory Rate Blood Pressure Pulse Oximetry 92 Oxygen Delivery Method 11/10/22 08:38 11/10/22 08:38 11/10/22 08:45 Pulse Rate 86 89 Respiratory Rate Blood Pressure 85/51 L Pulse Oximetry 92 92 Oxygen Delivery Method 11/10/22 08:50 11/10/22 08:55 11/10/22 09:00 Pulse Rate 78 77 Respiratory Rate Blood Pressure 79/53 L Pulse Oximetry 92 92 Oxygen Delivery Method 11/10/22 09:00 11/10/22 09:04 11/10/22 09:05 Pulse Rate 76 78 Respiratory Rate Blood Pressure 94/56 L Pulse Oximetry 92 Oxygen Delivery Method 11/10/22 09:05 11/10/22 09:10 11/10/22 09:10 Pulse Rate 77 76 Respiratory Rate Blood Pressure 86/53 L Pulse Oximetry 93 92 Oxygen Delivery Method 11/10/22 09:15 11/10/22 09:15 11/10/22 09:20 Pulse Rate 76 Respiratory Rate Blood Pressure 89/54 L 80/50 L Pulse Oximetry 92 Oxygen Delivery Method 11/10/22 09:20 11/10/22 09:22 11/10/22 09:22 Pulse Rate 76 77 Respiratory Rate Blood Pressure 78/51 L Pulse Oximetry 91 92 Oxygen Delivery Method 11/10/22 09:25 11/10/22 09:25 11/10/22 09:30 Pulse Rate 79 Respiratory Rate Blood Pressure 81/60 L 86/61 L Pulse Oximetry 92 Oxygen Delivery Method 11/10/22 09:30 11/10/22 09:35 11/10/22 09:35 Pulse Rate 83 80 Respiratory Rate Blood Pressure 82/49 L Pulse Oximetry 95 94 Oxygen Delivery Method 11/10/22 09:39 11/10/22 09:39 11/10/22 09:40 Pulse Rate 70 Respiratory Rate Blood Pressure 80/49 L 78/48 L Pulse Oximetry 94 Oxygen Delivery Method 11/10/22 09:40 11/10/22 09:43 11/10/22 09:43 Pulse Rate 70 75 Respiratory Rate Blood Pressure 88/54 L Pulse Oximetry 94 96 Oxygen Delivery Method 11/10/22 09:45 11/10/22 09:45 11/10/22 09:50 Pulse Rate 73 Respiratory Rate Blood Pressure 90/54 L 77/52 L Pulse Oximetry 96 Oxygen Delivery Method 11/10/22 09:50 11/10/22 09:52 11/10/22 09:52 Pulse Rate 70 70 Respiratory Rate Blood Pressure 85/51 L Pulse Oximetry 92 92 Oxygen Delivery Method 11/10/22 09:55 11/10/22 09:55 11/10/22 09:56 Pulse Rate 68 74 Respiratory Rate Blood Pressure 68/43 L Pulse Oximetry 92 92 Oxygen Delivery Method Room Air 11/10/22 09:56 11/10/22 10:00 11/10/22 10:01 Pulse Rate 82 Respiratory Rate Blood Pressure 86/52 L 129/59 L Pulse Oximetry 95 Oxygen Delivery Method 11/10/22 10:01 11/10/22 10:05 11/10/22 10:05 Pulse Rate 82 78 Respiratory Rate Blood Pressure 102/58 L Pulse Oximetry 95 96 Oxygen Delivery Method 11/10/22 10:10 11/10/22 10:10 11/10/22 10:15 Pulse Rate 80 Respiratory Rate Blood Pressure 107/64 113/70 Pulse Oximetry 96 Oxygen Delivery Method 11/10/22 10:15 11/10/22 10:20 11/10/22 10:20 Pulse Rate 83 85 Respiratory Rate Blood Pressure 95/55 L Pulse Oximetry 93 95 Oxygen Delivery Method 11/10/22 10:29 11/10/22 10:30 11/10/22 10:30 Pulse Rate 72 Respiratory Rate Blood Pressure 119/56 L Pulse Oximetry 96 94 Oxygen Delivery Method 11/10/22 10:31 11/10/22 10:31 11/10/22 10:35 Pulse Rate 82 83 Respiratory Rate Blood Pressure 103/59 L Pulse Oximetry 97 95 Oxygen Delivery Method 11/10/22 10:36 11/10/22 10:36 11/10/22 10:40 Pulse Rate 77 Respiratory Rate Blood Pressure 135/70 139/72 Pulse Oximetry 89 L Oxygen Delivery Method 11/10/22 10:40 11/10/22 10:45 11/10/22 10:45 Pulse Rate 76 81 Respiratory Rate Blood Pressure 122/60 Pulse Oximetry 97 94 Oxygen Delivery Method 11/10/22 10:50 11/10/22 10:50 11/10/22 10:55 Pulse Rate 76 Respiratory Rate Blood Pressure 105/50 L 106/71 Pulse Oximetry 95 Oxygen Delivery Method 11/10/22 10:55 11/10/22 11:00 11/10/22 11:00 Pulse Rate 77 76 Respiratory Rate Blood Pressure 90/53 L Pulse Oximetry 96 94 Oxygen Delivery Method 11/10/22 11:05 11/10/22 11:05 11/10/22 11:06 Pulse Rate 71 Respiratory Rate Blood Pressure 81/50 L 83/52 L Pulse Oximetry 92 Oxygen Delivery Method 11/10/22 11:06 11/10/22 11:07 11/10/22 11:07 Pulse Rate 71 79 Respiratory Rate Blood Pressure 88/64 L Pulse Oximetry 95 95 Oxygen Delivery Method 11/10/22 11:10 Pulse Rate 75 Respiratory Rate Blood Pressure Pulse Oximetry 95 Oxygen Delivery Method Medical Decision Making <Tiana Walton MD - Last Filed: 11/10/22 23:40> Lab Data 11/10/22 01:00 11/10/22 01:00 Labs: Lab Results 11/10/22 11/10/22 Range/Units 01:00 01:00 WBC 8.9 (4.5-11.0) X10^3/uL RBC 4.39 (4.0-5.2) X10^6/uL Hgb 14.4 (12.0-16.0) g/dL Hct 41.5 (36-46) % MCV 94.5 (80-100) fL MCH 32.7 (26-34) PG MCHC 34.6 (30-36) % RDW 15.3 H (11.6-14.8) % Plt Count 142 L (150-400) X10^3/uL Neut % (Auto) 46.9 L (50-75) % Lymph % (Auto) 42.0 H (25-40) % Hubbard % (Auto) 8.1 (3-14) % Eos % (Auto) 2.1 (2-4) % Baso % (Auto) 0.9 (0-2) % Neut # (Auto) 4200 (3816-1424) /uL Lymph # (Auto) 3800 (9376-1701) /uL Hubbard # (Auto) 700 (0-900) /uL Eos # (Auto) 200 (0-450) /uL Baso # (Auto) 100 (0-100) /uL Sodium 147 H (137-145) mmol/L Potassium 3.6 (3.4-5.1) mmol/L Chloride 106 (98-107) mmol/L Carbon Dioxide 27 (22-32) mmol/L BUN 11 (7-17) mg/dL Creatinine 0.73 (0.52-1.04) mg/dL Estimated GFR > 60 (>60) mL/min BUN/Creatinine Ratio 15.1 (6-22) Glucose 99 (80-110) mg/dL Calcium 9.4 (8.4-10.2) mg/dL Total Bilirubin 2.2 H (0.2-1.3) mg/dL AST 184 H (14-36) IU/L ALT 87 H (<35) IU/L Alkaline Phosphatase 112 (38-126) U/L Total Protein 9.1 H (6.3-8.2) g/dL Albumin 4.2 (3.5-5.0) g/dL Globulin 4.9 H (1.7-4.1) g/dL Albumin/Globulin Ratio 0.9 L (1.0-2.8) Ethyl Alcohol 405 H* ( - 10) mg/dL MDM Narrative Medical decision making narrative: CC: Acute intoxication, this is an acute exacerbation of a chronic problem with uncertain prognosis Complicating co-morbidities: End-stage liver disease with prior variceal bleeding episodes. Data collected from: patient, EMS Social determinants of health that may influence the patients condition: Currently lives on the same property as her parents and appears to have had a returned to use after an extended period of fruit him from drinking. Medical records reviewed: Records from [facility] with recent admission in the end of September are reviewed. There was upper GI bleeding, she would an episode of paroxysmal atrial fibrillation and left-sided weakness with no evidence of stroke on advanced imaging including MRI Differential considered: Acute alcohol intoxication, possibility of suicide attempt or suicidal ideation, no evidence of acute bleeding or alternate medical complication at this time Exam documented above, pertinent findings include: She is intoxicated, perseverating, mild abdominal pain no evidence of bleeding. She wants to get up and out of bed and is significantly unsteady due to her acute intoxication presenting a significant fall risk. Lab Test results independently reviewed as above. Pertinent findings: CBC is reassuring with a normal white blood cell count and no evidence of acute anemia. Platelets are at 1:42 a.m. which is definitely on the high end of normal for her. Chemistries show mild hypernatremia, normal kidney function, bilirubin, AST, ALT and alk-phos are all continuing to decrease and seem to be below her baseline. Alcohol level is at 405. Last time she had levels documented at that elevation was in February of 2018. Treatments: Because patient is so agitated at significant risk for climbing out of bed and obviously terrified with alcohol level at approximately 400 she is given 2 mg of IV Versed. This calms her slightly however she is still quite anxious and climbing out of bed. She is given 10 mg of IV Haldol which has allowed her to sleep comfortably. She remains monitored without any evidence hypoxia or heart rate abnormalities Re-evaluations: 445 a.m.. She continues to sleep comfortably with no evidence of bleeding or significant vital sign abnormalities 7am care is turned over to Dr Nelson Discussion: 62-year-old woman presents with severe alcohol intoxication. Uncertain what happened tonight that is caused her to have such a significant relapse in her alcohol use. She will need to sober and we will need to discuss further. She may benefit from social work consult. Again at this point she is not showing any evidence of further medical complications such as GI bleeding, heart attack or stroke. <Tima Omar, DO - Last Filed: 11/10/22 11:20> Lab Data Labs: Lab Results 11/10/22 11/10/22 Range/Units 01:00 01:00 WBC 8.9 (4.5-11.0) X10^3/uL RBC 4.39 (4.0-5.2) X10^6/uL Hgb 14.4 (12.0-16.0) g/dL Hct 41.5 (36-46) % MCV 94.5 (80-100) fL MCH 32.7 (26-34) PG MCHC 34.6 (30-36) % RDW 15.3 H (11.6-14.8) % Plt Count 142 L (150-400) X10^3/uL Neut % (Auto) 46.9 L (50-75) % Lymph % (Auto) 42.0 H (25-40) % Hubbard % (Auto) 8.1 (3-14) % Eos % (Auto) 2.1 (2-4) % Baso % (Auto) 0.9 (0-2) % Neut # (Auto) 4200 (0955-6569) /uL Lymph # (Auto) 3800 (8239-9140) /uL Hubbard # (Auto) 700 (0-900) /uL Eos # (Auto) 200 (0-450) /uL Baso # (Auto) 100 (0-100) /uL Sodium 147 H (137-145) mmol/L Potassium 3.6 (3.4-5.1) mmol/L Chloride 106 (98-107) mmol/L Carbon Dioxide 27 (22-32) mmol/L BUN 11 (7-17) mg/dL Creatinine 0.73 (0.52-1.04) mg/dL Estimated GFR > 60 (>60) mL/min BUN/Creatinine Ratio 15.1 (6-22) Glucose 99 (80-110) mg/dL Calcium 9.4 (8.4-10.2) mg/dL Total Bilirubin 2.2 H (0.2-1.3) mg/dL AST 184 H (14-36) IU/L ALT 87 H (<35) IU/L Alkaline Phosphatase 112 (38-126) U/L Total Protein 9.1 H (6.3-8.2) g/dL Albumin 4.2 (3.5-5.0) g/dL Globulin 4.9 H (1.7-4.1) g/dL Albumin/Globulin Ratio 0.9 L (1.0-2.8) Ethyl Alcohol 405 H* ( - 10) mg/dL MDM Narrative Medical decision making narrative: CC: Acute intoxication, this is an acute exacerbation of a chronic problem with uncertain prognosis Complicating co-morbidities: End-stage liver disease with prior variceal bleeding episodes. Data collected from: patient, EMS Social determinants of health that may influence the patients condition: Currently lives on the same property as her parents and appears to have had a returned to use after an extended period of fruit him from drinking. Medical records reviewed: Records from [facility] with recent admission in the end of September are reviewed. There was upper GI bleeding, she would an episode of paroxysmal atrial fibrillation and left-sided weakness with no evidence of stroke on advanced imaging including MRI Differential considered: Acute alcohol intoxication, possibility of suicide attempt or suicidal ideation, no evidence of acute bleeding or alternate medical complication at this time Exam documented above, pertinent findings include: She is intoxicated, perseverating, mild abdominal pain no evidence of bleeding. She wants to get up and out of bed and is significantly unsteady due to her acute intoxication presenting a significant fall risk. Lab Test results independently reviewed as above. Pertinent findings: CBC is reassuring with a normal white blood cell count and no evidence of acute anemia. Platelets are at 1:42 a.m. which is definitely on the high end of normal for her. Chemistries show mild hypernatremia, normal kidney function, bilirubin, AST, ALT and alk-phos are all continuing to decrease and seem to be below her baseline. Alcohol level is at 405. Last time she had levels documented at that elevation was in February of 2018. Treatments: Because patient is so agitated at significant risk for climbing out of bed and obviously terrified with alcohol level at approximately 400 she is given 2 mg of IV Versed. This calms her slightly however she is still quite anxious and climbing out of bed. She is given 10 mg of IV Haldol which has allowed her to sleep comfortably. She remains monitored without any evidence hypoxia or heart rate abnormalities Re-evaluations: 445 a.m.. She continues to sleep comfortably with no evidence of bleeding or significant vital sign abnormalities 7am care is turned over to Dr Nelson Discussion: 62-year-old woman presents with severe alcohol intoxication. Uncertain what happened tonight that is caused her to have such a significant relapse in her alcohol use. She will need to sober and we will need to discuss further. She may benefit from social work consult. Again at this point she is not showing any evidence of further medical complications such as GI bleeding, heart attack or stroke. Dr Nelson: Received turned over. Reviewed patient's history and physical and workup up to this point. Patient has been sleeping. After period of time the patient became arousable. She was alert oriented. She was able to stand on her own. She was able to tolerate oral intake. Will discharge patient home with family. Discharge Plan Departure Patient Disposition: Home Clinical Impression: Alcohol use disorder Acute alcohol intoxication Qualifiers: Complication of substance-induced condition: uncomplicated Qualified Code(s): F10.920 - Alcohol use, unspecified with intoxication, uncomplicated Instructions: DI for Alcohol Use Disorder Activity Restrictions/Additional Instructions: No driving for the next 24 hours or in the future if you drink alcohol. I do recommend that you continue to take all of your medications as directed. I also recommend that you consider seeking help for your alcohol use. You can contact your primary doctor for this. Prescriptions: No Action Xifaxan 550 MG tablet 550 mg PO BID Qty: 60 11RF nadolol 20 mg tablet See Rx Instructions .ROUTE .COMPLEX Qty: 135 3RF Dose Instruction: TAKE 1 AND 1/2 TABLETS BY MOUTH EVERY AFTERNOON/ EVENING Rx Instructions: TAKE 1 AND 1/2 TABLETS BY MOUTH EVERY AFTERNOON/ EVENING levothyroxine 100 mcg capsule 100 mcg PO DAILY Qty: 90 3RF liothyronine [Cytomel] 5 mcg tablet 10 mcg PO DAILY ,calc.[id number] 1 27-1 mg tablet 1 tab PO DAILY Qty: 90 3RF Rx Instructions: Take 1 tab daily for anemia lactulose 10 gram/15 mL solution 15 - 30 ml PO DAILY PRN (Reason: constipation) Patient Comments: Take 30mL daily if pt does not have 3 BMs per day furosemide 20 mg tablet 40 mg PO QAM Qty: 60 3RF Rx Instructions: Take 1 extra tab of 20mg (total 40mg) daily lorazepam 1 mg tablet 1 mg PO DAILY PRN (Reason: anxiety) Qty: 30 5RF potassium chloride 10 mEq tablet,ER particles/crystals 20 meq PO DAILY Qty: 30 1RF Rx Instructions: Take 2 tabs by mouth daily x7 days, then reassess pregabalin 50 mg capsule 50 mg PO TID Qty: 270 3RF spironolactone 50 mg tablet See Rx Instructions .ROUTE .COMPLEX Qty: 30 3RF Dose Instruction: TAKE 1 TABLET(50 MG) BY MOUTH DAILY Rx Instructions: TAKE 1 TABLET(50 MG) BY MOUTH DAILY magnesium 1 tab PO BID ondansetron 8 mg tablet,disintegrating 8 mg PO Q8H PRN (Reason: nausea and vomiting) Qty: 30 3RF Rx Instructions: Tae 1 tab by mouth every 8 hours, routinely until nausea resolved, then as needed clobetasol 0.05 % ointment 1 applic topical QAM AND QPM Qty: 30 3RF Rx Instructions: Apply to itchy leg twice per day x2 weeks total. metoclopramide HCl [Reglan] 10 mg tablet 10 mg PO Q6H PRN (Reason: nausea and vomiting) Qty: 14 0RF Referrals: Divina Lopes ARNP [Primary Care Provider] - Stand Alone Forms: Patient Portal/API
[2022-11-10] MEDS: THIAMINE 100 MG in SODIUM CHLORIDE 0.9% 100 ML 404 MG IV (01:32)
[2022-11-10] MEDS: ONDANSETRON 4 MG/2 ML INJ IV (01:32)
[2022-11-10 01:34] LABS: Alanine Aminotransferase 87 IU/L (<35); Albumin 4.2 g/dL (3.5-5.0); Albumin Globulin Ratio 0.9 (1.0-2.8); Alkaline Phosphatase 112 U/L (38-126); Aspartate Aminotransferase 184 IU/L (14-36); BUN Creatinine Ratio 15.1 (6-22); Bilirubin Total 2.2 mg/dL (0.2-1.3); Blood Urea Nitrogen 11 mg/dL (7-17); Calcium 9.4 mg/dL (8.4-10.2); Carbon Dioxide 27 mmol/L (22-32); Chloride 106 mmol/L (98-107); Estimated Glomerular Filt Rate > 60 mL/min (>60); Globulin 4.9 g/dL (1.7-4.1); Glucose 99 mg/dL (80-110); HEMOLYSIS < 15 (0-50); Potassium 3.6 mmol/L (3.4-5.1); Sodium 147 mmol/L (137-145); Total Protein 9.1 g/dL (6.3-8.2)
[2022-11-10 01:38] LABS: Hematocrit 41.5 % (36-46); Hemoglobin 14.4 g/dL (12.0-16.0); Mean Corpuscular Hemoglobin 32.7 PG (26-34); Mean Corpuscular Volume 94.5 fL (80-100); Red Blood Cell Count 4.39 X10^6/uL (4.0-5.2); White Blood Cell Count 8.9 X10^3/uL (4.5-11.0)
[2022-11-10 01:39] LABS: Add Manual Diff / Slide Review NO; Basophils Percent Auto 0.9 % (0-2); Eosinophils Percent Auto 2.1 % (2-4); Mean Corpuscular HGB Conc 34.6 % (30-36); Monocytes Percent Auto 8.1 % (3-14); Neutrophils Percent Auto 46.9 % (50-75); Platelet Count 142 X10^3/uL (150-400); Red Cell Distribution Width 15.3 % (11.6-14.8)
[2022-11-10] MEDS: SODIUM CHLORIDE 0.9% 1,000 ML 1000 ML IV ×2 (01:44→08:45)
[2022-11-10 01:46] LABS: Basophils Absolute Auto 100 /uL (0-100); Eosinophils Absolute Auto 200 /uL (0-450); Lymphocytes Absolute Auto 3800 /uL (1100-4500); Monocytes Absolute Auto 700 /uL (0-900); Neutrophils Absolute Auto 4200 /uL (1500-7000)
[2022-11-10] MEDS: MIDAZOLAM 2 MG/2 ML VIAL IV (01:46)
[2022-11-10 01:54] LABS: Ethanol (ETOH) 405 mg/dL
--- NOTE | 2022-11-10 02:18 | PC.NURSE ---
Patient continues to try to climb out of bed.. 1:1 sitter at bedside. Patient does not understand that she cannot walk and cannot get to the bathroom and is refusing all other methods of urinating with bedpan or purewick or brief.
[2022-11-10] MEDS: HALOPERIDOL 5 MG/ML VIAL 10 MG IV (02:25)
--- NOTE | 2022-11-10 03:33 | PC.NURSE ---
Patient was sticking head through the railings on the stretcher therefore, staff placed seizure pads along both railings on the bed for patient safety
== END 2022-11-10 11:30 | disposition home or self-care (01) ==
PROVIDERS: Emergency Medicine; Emergency Provider Emergency Medicine; PCP Nurse Practitioner
DX: F10.129 Alcohol abuse with intoxication, unspecified (principal); Y90.8 Blood alcohol level of 240 mg/100 ml or more; R10.9 Unspecified abdominal pain; K72.90 Hepatic failure, unspecified without coma; Z79.899 Other long term (current) drug therapy
CPT/HCPCS: 36415; 80053; 80320; 85025; 96361; 96374; 96375; 99284; J1630; J2250; J2405

== ENCOUNTER → 2022-12-25 12:19 | Outpatient (CLI) | payer OTHER, MEDICAID, SELFPAY ==
[2022-12-25 13:21] LABS: Add Manual Diff / Slide Review NO; Basophils Absolute Auto 0 /uL (0-100); Basophils Percent Auto 0.8 % (0-2); Eosinophils Absolute Auto 100 /uL (0-450); Eosinophils Percent Auto 2.2 % (2-4); Hematocrit 37.9 % (36-46); Hemoglobin 13.2 g/dL (12.0-16.0); Lymphocytes Absolute Auto 900 /uL (1100-4500); Mean Corpuscular HGB Conc 34.9 % (30-36); Mean Corpuscular Hemoglobin 32.9 PG (26-34); Mean Corpuscular Volume 94.3 fL (80-100); Monocytes Absolute Auto 600 /uL (0-900); Monocytes Percent Auto 18.5 % (3-14); Neutrophils Absolute Auto 1600 /uL (1500-7000); Neutrophils Percent Auto 49.5 % (50-75); Platelet Count 82 X10^3/uL (150-400); Red Blood Cell Count 4.02 X10^6/uL (4.0-5.2); Red Cell Distribution Width 16.4 % (11.6-14.8); White Blood Cell Count 3.3 X10^3/uL (4.5-11.0)
[2022-12-25 13:27] LABS: Alanine Aminotransferase 74 IU/L (<35); Alkaline Phosphatase 93 U/L (38-126); Aspartate Aminotransferase 102 IU/L (14-36); Bilirubin Total 2.2 mg/dL (0.2-1.3); Blood Urea Nitrogen 14 mg/dL (7-17); Calcium 9.7 mg/dL (8.4-10.2); Carbon Dioxide 26 mmol/L (22-32); Chloride 106 mmol/L (98-107); Estimated Glomerular Filt Rate > 60 mL/min (>60); Globulin 3.9 g/dL (1.7-4.1); Glucose 96 mg/dL (80-110); HEMOLYSIS < 15 (0-50); Magnesium 1.3 mg/dL (1.6-2.3); Potassium 3.3 mmol/L (3.4-5.1); Sodium 140 mmol/L (137-145); Total Protein 7.9 g/dL (6.3-8.2)
== END ==
PROVIDERS: Family Provider Nurse Practitioner; PCP Nurse Practitioner; Referring Provider Nurse Practitioner; Visit Provider Nurse Practitioner
DX: D50.9 Iron deficiency anemia, unspecified (principal); E83.42 Hypomagnesemia; E87.6 Hypokalemia
CPT/HCPCS: 36415; 80053; 83735; 85025

== ENCOUNTER 2023-01-20 13:00 | Outpatient (RCR) | payer OTHER, MEDICAID, SELFPAY ==
--- NOTE | 2022-12-25 17:11 | PT.OIE ---
Current Diagnoses Cerebral infarction, unspecified (12/25/22) Other symptoms and signs involving the musculoskeletal system (12/25/22) Past Medical History (Last Updated 12/25/22 @ 10:53 by HARJEET John) Alcohol use disorder, severe, in early remission Anemia, blood loss Anemia, macrocytic Anxiety Ascites due to alcoholic cirrhosis Atrial fibrillation Cardiac arrhythmia Chicken pox Cirrhosis (2012) Coagulation disorder (2012) Depression Eczema (2014) EV (esophageal varices) (10/2015) GERD (gastroesophageal reflux disease) GI bleeding (2015) Hemorrhoids, internal History of alcohol abuse (12/27/15) History of blood transfusion (10/2015) History of heavy periods (2014) Hypercalcemia Hypertension Hypothyroidism Intermittent palpitations (04/2019) Measles Mumps Nonalcoholic fatty liver disease Ovarian cyst (2012) Painful menstrual periods (2012) Pancreatitis Portal hypertensive gastropathy (05/2015) Psoriasis (2014) PTSD (post-traumatic stress disorder) (1999) SBO (small bowel obstruction) Shortness of breath Stroke Weakness of left upper extremity Weight gain Past Surgical History (Last Reviewed 12/25/22 @ 09:58 by HARJEET John) H/O bilateral oophorectomy History of appendectomy History of cholecystectomy History of esophagogastroduodenoscopy (EGD) (01/2009) History of esophagogastroduodenoscopy (EGD) (05/2015) History of inguinal hernia repair Status post appendectomy Status post colonoscopy (01/2009) Status post hernia repair Status post hysteroscopy (06/17/11) Status post laparoscopic supracervical hysterectomy (08/25/16) Visit Care Team Role Provider Type HARJEET John Attending Provider Advanced Carbon Blocks Press Operator Family Provider Primary Care Provider Referring Provider Specialty: Family Practice Address: [address] [place] [address], [facility] Email: [email or web address] Physical Therapy Initial Evaluation PT-OP-A Visit Information Start: 12/25/22 09:40 Freq: Status: Active Protocol: Document 12/25/22 09:46 ES (Rec: 12/25/22 12:31 ES [id number]) Out-Patient Physical Therapy Visit Information Visit Information Visit Type Initial Evaluation Visit Start Time 11:36 Visit Stop Time 12:15 Total Visit Minutes 39 Visit Number 1/12 Evaluation Information Evaluation Date 12/25/22 PT-OP-B Current Condition Start: 12/25/22 09:40 Freq: Status: Active Protocol: Document 12/25/22 09:46 ES (Rec: 12/25/22 12:31 ES [id number]) Current Condition History of Current Condition Onset Date November 2022 Current Complaints Balance History of Current Condition Patient was hospitalized for about 1 week in November for CVA. Her left arm was most affected . Went home after hospitalization and had HH PT/ OT/PRESCHOOL TEACHER AIDE for about 4 weeks. Arm has gotten much better though is having pain with overhead reaching and hanging. Primary complaint is of decreased balance confidence. Patient reported she doesn't trust her body to do what it's supposed to do. She is having trouble stepping down, especially on uneven or unstable surfaces like loose rock around her house. Has been using a cane for balance in those circumstances. Is afraid of tripping; has caught her feet on grass and lost her balance, though has not fallen. Wears trifocals with prism lenses which affects her peripheral vision and depth perception, has worn them for many years. Had COVID this winter and some other illnesses and was more sedentary than usual. Feels like she was already weaker than usual and then the stroke exacerbated it. Treatment Goals Patient/Caregiver Goals To get more confident with balance, to be able to walk around without worrying about tripping/falling. Prior Functional Status Baseline Function- Gait Indep without AD Baseline Function- Recreation/Hobbies Was active in gardening, yardwork, housework Current Functional Impairments (Reported) Functional Limitations- Mobility/Gait Uses cane for walking around outside/gardening. Functional Limitations- Recreation/ Back to gardening/yardwork now Hobbies but is having to be extra careful. PT-OP-C Subjective Start: 12/25/22 09:40 Freq: Status: Active Protocol: Document 12/25/22 09:46 ES (Rec: 12/25/22 12:31 ES [id number]) Patient Questionnaires ABC- Activity Specific Balance Confidence Scale ABC Score 86.9 ABC Functional Impairment 1 to <20% Impaired (Score 81- 99) PT-OP-D Balance Start: 12/25/22 09:40 Freq: Status: Active Protocol: Document 12/25/22 09:46 ES (Rec: 12/25/22 12:31 ES [id number]) Balance Tests mCTSIB mCTSIB Position 1 30 mCTSIB Position 2 30 mCTSIB Position 3 30 mCTSIB Position 4 30 Single Limb Standing Single Limb- Right 10 sec Single Limb- Left 10 sec Tandem Tandem Standing 15 sec, increased postural sway PT-OP-E Functional Tests Start: 12/25/22 09:40 Freq: Status: Active Protocol: Document 12/25/22 09:46 ES (Rec: 12/25/22 12:31 ES [id number]) Functional Tests Five Times Sit to Stand Test Score 12.75 sec Comments Norm for age = 11.4 sec; cutoff score for fall risk with CVA = 12 sec Squat Test Comments B knees go to L, difficulty returning to stand Single Leg Squat Test Comment Unable to do without UE support, medial collapse noted . PT-OP-K Range of Motion Start: 12/25/22 09:40 Freq: Status: Active Protocol: Document 12/25/22 09:46 ES (Rec: 12/25/22 12:31 ES [id number]) Shoulder Goniometric Range of Motion Shoulder Left Active Shoulder ROM WFL Yes Comments Pain at end range shoulder flexion PT-OP-M Strength Start: 12/25/22 09:40 Freq: Status: Active Protocol: Document 12/25/22 09:46 ES (Rec: 12/25/22 12:31 ES [id number]) Shoulder Strength Shoulder Manual Muscle Testing Left Flexion 4 Good Extension 4+ Good+ Abduction (C5) 4 Good External Rotation 4 Good Internal Rotation 4+ Good+ PT-OP-Q Treatments Start: 12/25/22 09:40 Freq: Status: Active Protocol: Document 12/25/22 17:09 ES (Rec: 12/25/22 17:11 ES [id number]) Therapeutic Exercises Sitting Exercises Chair squat Reps/Minutes 2x10 Comments tapping to chair (not sitting) ; instructed for HEP Standing Exercises Tandem stance Reps/Minutes x30s Comments instructed for HEP SLS Side bilateral Reps/Minutes x30s Comments instructed for HEP PT-OP-T Assessment and Plan Start: 12/25/22 09:40 Freq: Status: Active Protocol: Document 12/25/22 09:46 ES (Rec: 12/25/22 12:31 ES [id number]) Physical Therapy Assessment Rehab Potential Rehabilitation Potential Excellent Evaluation Complexity Number of Personal Factors/Comorbidities 1-2 Number of Body Systems Impaired 1-2 Clinical Presentation at Evaluation Stable Impairments Impairments Balance,Functional Activities, Functional Mobility,Pain, Strength Goals Three Impairment Balance/gait Rope Silica Machine Operator Goal (LTG) Patient will be able to ambulate on uneven and inclined surface without need for AD. LTG Duration 4 weeks (01/22/23) Two Impairment Strength/balance Intermediate Goal (LTG) Patient will be indep in HEP/ community fitness class to address strength and balance. LTG Duration 4 weeks (01/22/23) One Impairment L shoulder pain/weakness Rope Silica Machine Operator Goal (LTG) Patient will be independent with HEP to address L shoulder strength and will be able to perform full L shoulder flexion without increase in pain. LTG Duration 4 weeks (01/22/23) Assessment Summary Assessment Patient is a 62 year old female referred to PT due to recent CVA. She has gained most of her LUE function back, though has some pain with terminal flexion/abduction likely due to remaining relative weakness. She did not have significant deficits with balance testing today. She demonstrated weakness with functional activity such as squatting and had increased postural sway and difficulty with tandem stance and SLS. She will not need a long course of PT, but would benefit from development and implementation of HEP to address strength deficits in order to improve her ability to use LUE for overhead activity and to improve her balance confidence and her ability to walk around outside on uneven surfaces while doing yardwork and gardening. Physical Therapy Plan Frequency and Duration Frequency of Treatment 1x/Week Duration of treatment (weeks) 4 Plan of Care Start Date 12/25/22 Plan of Care End Date 01/22/23 Therapeutic Interventions Therapeutic Interventions Balance Training,Home Exercise Program,Neuromuscular Re- education,Patient/Caregiver Education,Self-Care/Home Management,Therapeutic Activities,Therapeutic Exercises Next Visit Focus/Plan Next Note Type Treatment Note Next Visit Plan HEP instruction for L RC/ shoulder strength, functional LE strength including SL strengthening.
--- NOTE | 2022-12-25 17:13 | PT.OIE ---
Current Diagnoses Cerebral infarction, unspecified (12/25/22) Hemiplegia and hemiparesis following cerebral infarction affecting left non-dominant side (12/25/22) Unsteadiness on feet (12/25/22) Other symptoms and signs involving the musculoskeletal system (12/25/22) Past Medical History (Last Updated 12/25/22 @ 10:53 by HARJEET John) Alcohol use disorder, severe, in early remission Anemia, blood loss Anemia, macrocytic Anxiety Ascites due to alcoholic cirrhosis Atrial fibrillation Cardiac arrhythmia Chicken pox Cirrhosis (2012) Coagulation disorder (2012) Depression Eczema (2014) EV (esophageal varices) (10/2015) GERD (gastroesophageal reflux disease) GI bleeding (2015) Hemorrhoids, internal History of alcohol abuse (12/27/15) History of blood transfusion (10/2015) History of heavy periods (2014) Hypercalcemia Hypertension Hypothyroidism Intermittent palpitations (04/2019) Measles Mumps Nonalcoholic fatty liver disease Ovarian cyst (2012) Painful menstrual periods (2012) Pancreatitis Portal hypertensive gastropathy (05/2015) Psoriasis (2014) PTSD (post-traumatic stress disorder) (1999) SBO (small bowel obstruction) Shortness of breath Stroke Weakness of left upper extremity Weight gain Past Surgical History (Last Reviewed 12/25/22 @ 09:58 by HARJEET John) H/O bilateral oophorectomy History of appendectomy History of cholecystectomy History of esophagogastroduodenoscopy (EGD) (01/2009) History of esophagogastroduodenoscopy (EGD) (05/2015) History of inguinal hernia repair Status post appendectomy Status post colonoscopy (01/2009) Status post hernia repair Status post hysteroscopy (06/17/11) Status post laparoscopic supracervical hysterectomy (08/25/16) Visit Care Team Role Provider Type HARJEET John Attending Provider Advanced Equine Internship Family Provider Primary Care Provider Referring Provider Specialty: [facility] Practice Address: [address] [place] [address], [facility] Email: [email or web address] Physical Therapy Initial Evaluation PT-OP-A Visit Information Start: 12/25/22 09:40 Freq: Status: Active Protocol: Document 12/25/22 09:46 ES (Rec: 12/25/22 12:31 ES [id number]) Out-Patient Physical Therapy Visit Information Visit Information Visit Type Initial Evaluation Visit Start Time 11:36 Visit Stop Time 12:15 Total Visit Minutes 39 Visit Number 07/24 Evaluation Information Evaluation Date 12/25/22 PT-OP-B Current Condition Start: 12/25/22 09:40 Freq: Status: Active Protocol: Document 12/25/22 09:46 ES (Rec: 12/25/22 12:31 ES [id number]) Current Condition History of Current Condition Onset Date November 2022 Current Complaints Balance History of Current Condition Patient was hospitalized for about 1 week in November for CVA. Her left arm was most affected . Went home after hospitalization and had HH PT/ OT/COMMERCIAL ACCOUNT OFFICER for about 4 weeks. Arm has gotten much better though is having pain with overhead reaching and hanging. Primary complaint is of decreased balance confidence. Patient reported she doesn't trust her body to do what it's supposed to do. She is having trouble stepping down, especially on uneven or unstable surfaces like loose rock around her house. Has been using a cane for balance in those circumstances. Is afraid of tripping; has caught her feet on grass and lost her balance, though has not fallen. Wears trifocals with prism lenses which affects her peripheral vision and depth perception, has worn them for many years. Had COVID this winter and some other illnesses and was more sedentary than usual. Feels like she was already weaker than usual and then the stroke exacerbated it. Treatment Goals Patient/Caregiver Goals To get more confident with balance, to be able to walk around without worrying about tripping/falling. Prior Functional Status Baseline Function- Gait Indep without AD Baseline Function- Recreation/Hobbies Was active in gardening, yardwork, housework Current Functional Impairments (Reported) Functional Limitations- Mobility/Gait Uses cane for walking around outside/gardening. Functional Limitations- Recreation/ Back to gardening/yardwork now Hobbies but is having to be extra careful. PT-OP-C Subjective Start: 12/25/22 09:40 Freq: Status: Active Protocol: Document 12/25/22 09:46 ES (Rec: 12/25/22 12:31 ES [id number]) Patient Questionnaires ABC- Activity Specific Balance Confidence Scale ABC Score 86.9 ABC Functional Impairment 1 to <20% Impaired (Score 81- 99) PT-OP-D Balance Start: 12/25/22 09:40 Freq: Status: Active Protocol: Document 12/25/22 09:46 ES (Rec: 12/25/22 12:31 ES [id number]) Balance Tests mCTSIB mCTSIB Position 1 30 mCTSIB Position 2 30 mCTSIB Position 3 30 mCTSIB Position 4 30 Single Limb Standing Single Limb- Right 10 sec Single Limb- Left 10 sec Tandem Tandem Standing 15 sec, increased postural sway PT-OP-E Functional Tests Start: 12/25/22 09:40 Freq: Status: Active Protocol: Document 12/25/22 09:46 ES (Rec: 12/25/22 12:31 ES [id number]) Functional Tests Five Times Sit to Stand Test Score 12.75 sec Comments Norm for age = 11.4 sec; cutoff score for fall risk with CVA = 12 sec Squat Test Comments B knees go to L, difficulty returning to stand Single Leg Squat Test Comment Unable to do without UE support, medial collapse noted . PT-OP-K Range of Motion Start: 12/25/22 09:40 Freq: Status: Active Protocol: Document 12/25/22 09:46 ES (Rec: 12/25/22 12:31 ES [id number]) Shoulder Goniometric Range of Motion Shoulder Left Active Shoulder ROM WFL Yes Comments Pain at end range shoulder flexion PT-OP-M Strength Start: 12/25/22 09:40 Freq: Status: Active Protocol: Document 12/25/22 09:46 ES (Rec: 12/25/22 12:31 ES [id number]) Shoulder Strength Shoulder Manual Muscle Testing Left Flexion 4 Good Extension 4+ Good+ Abduction (C5) 4 Good External Rotation 4 Good Internal Rotation 4+ Good+ PT-OP-Q Treatments Start: 12/25/22 09:40 Freq: Status: Active Protocol: Document 12/25/22 17:09 ES (Rec: 12/25/22 17:11 ES [id number]) Therapeutic Exercises Sitting Exercises Chair squat Reps/Minutes 2x10 Comments tapping to chair (not sitting) ; instructed for HEP Standing Exercises Tandem stance Reps/Minutes x30s Comments instructed for HEP SLS Side bilateral Reps/Minutes x30s Comments instructed for HEP PT-OP-T Assessment and Plan Start: 12/25/22 09:40 Freq: Status: Active Protocol: Document 12/25/22 09:46 ES (Rec: 12/25/22 12:31 ES [id number]) Physical Therapy Assessment Rehab Potential Rehabilitation Potential Excellent Evaluation Complexity Number of Personal Factors/Comorbidities 1-2 Number of Body Systems Impaired 1-2 Clinical Presentation at Evaluation Stable Impairments Impairments Balance,Functional Activities, Functional Mobility,Pain, Strength Goals Three Impairment Balance/gait Biomedical Instrument Technician Goal (LTG) Patient will be able to ambulate on uneven and inclined surface without need for AD. LTG Duration 4 weeks (01/22/23) Two Impairment Strength/balance Fpc Goal (LTG) Patient will be indep in HEP/ community fitness class to address strength and balance. LTG Duration 4 weeks (01/22/23) One Impairment L shoulder pain/weakness Fpc Goal (LTG) Patient will be independent with HEP to address L shoulder strength and will be able to perform full L shoulder flexion without increase in pain. LTG Duration 4 weeks (01/22/23) Assessment Summary Assessment Patient is a 62 year old female referred to PT due to recent CVA. She has gained most of her LUE function back, though has some pain with terminal flexion/abduction likely due to remaining relative weakness. She did not have significant deficits with balance testing today. She demonstrated weakness with functional activity such as squatting and had increased postural sway and difficulty with tandem stance and SLS. She will not need a long course of PT, but would benefit from development and implementation of HEP to address strength deficits in order to improve her ability to use LUE for overhead activity and to improve her balance confidence and her ability to walk around outside on uneven surfaces while doing yardwork and gardening. Physical Therapy Plan Frequency and Duration Frequency of Treatment 1x/Week Duration of treatment (weeks) 4 Plan of Care Start Date 12/25/22 Plan of Care End Date 01/22/23 Therapeutic Interventions Therapeutic Interventions Balance Training,Home Exercise Program,Neuromuscular Re- education,Patient/Caregiver Education,Self-Care/Home Management,Therapeutic Activities,Therapeutic Exercises Next Visit Focus/Plan Next Note Type Treatment Note Next Visit Plan HEP instruction for L RC/ shoulder strength, functional LE strength including SL strengthening.
--- NOTE | 2022-12-25 17:13 | PT.OPPOC ---
Physical, Occupational & Speech Therapy At [facility] Current Diagnoses Cerebral infarction, unspecified (12/25/22) Hemiplegia and hemiparesis following cerebral infarction affecting left non-dominant side (12/25/22) Unsteadiness on feet (12/25/22) Other symptoms and signs involving the musculoskeletal system (12/25/22) Visit Care Team Role Provider Type HARJEET John Attending Provider Advanced Gill Box Tender Family Provider Primary Care Provider Referring Provider Specialty: [facility] Practice Address: [address] [place] [address] Email: [email or web address] Plan Of Care PT-OP-T Assessment and Plan Start: 12/25/22 09:40 Freq: Status: Active Protocol: Document 12/25/22 09:46 ES (Rec: 12/25/22 12:31 ES [id number]) Physical Therapy Assessment Rehab Potential Rehabilitation Potential Excellent Evaluation Complexity Number of Personal Factors/Comorbidities 1-2 Number of Body Systems Impaired 1-2 Clinical Presentation at Evaluation Stable Impairments Impairments Balance,Functional Activities, Functional Mobility,Pain, Strength Goals Three Impairment Balance/gait Calciner Operator Helper Goal (LTG) Patient will be able to ambulate on uneven and inclined surface without need for AD. LTG Duration 4 weeks (01/22/23) Two Impairment Strength/balance Nursing Home Goal (LTG) Patient will be indep in HEP/ community fitness class to address strength and balance. LTG Duration 4 weeks (01/22/23) One Impairment L shoulder pain/weakness Calciner Operator Helper Goal (LTG) Patient will be independent with HEP to address L shoulder strength and will be able to perform full L shoulder flexion without increase in pain. LTG Duration 4 weeks (01/22/23) Assessment Summary Assessment Patient is a 62 year old female referred to PT due to recent CVA. She has gained most of her LUE function back, though has some pain with terminal flexion/abduction likely due to remaining relative weakness. She did not have significant deficits with balance testing today. She demonstrated weakness with functional activity such as squatting and had increased postural sway and difficulty with tandem stance and SLS. She will not need a long course of PT, but would benefit from development and implementation of HEP to address strength deficits in order to improve her ability to use LUE for overhead activity and to improve her balance confidence and her ability to walk around outside on uneven surfaces while doing yardwork and gardening. Physical Therapy Plan Frequency and Duration Frequency of Treatment 1x/Week Duration of treatment (weeks) 4 Plan of Care Start Date 12/25/22 Plan of Care End Date 01/22/23 Therapeutic Interventions Therapeutic Interventions Balance Training,Home Exercise Program,Neuromuscular Re- education,Patient/Caregiver Education,Self-Care/Home Management,Therapeutic Activities,Therapeutic Exercises Next Visit Focus/Plan Next Note Type Treatment Note Next Visit Plan HEP instruction for L RC/ shoulder strength, functional LE strength including SL strengthening. Plan of Care Dates Plan of Care Start Date 12/25/22 Plan of Care End Date 01/22/23 Electronically Signed by: Daphne Tenorio, PT 12/25/22 [id number] If you are in agreement with this Plan of Care, please return a signed and dated copy. I have reviewed this Plan of Care and certify that the skilled therapy services above are required to meet the patient?s needs. Physician Signature Date Printed Name and Credentials Clinical Instructor Signature Printed Name and Credentials
--- NOTE | 2023-01-02 12:47 | PT.OTN ---
Current Diagnoses Cerebral infarction, unspecified (01/02/23) Hemiplegia and hemiparesis following cerebral infarction affecting left non-dominant side (01/02/23) Unsteadiness on feet (01/02/23) Other symptoms and signs involving the musculoskeletal system (01/02/23) Physical Therapy Treatment Note PT-OP-A Visit Information Start: 12/25/22 09:40 Freq: Status: Active Protocol: Document 01/02/23 12:02 SP (Rec: 01/02/23 12:50 SP [id number]) Out-Patient Physical Therapy Visit Information Visit Information Visit Type Treatment Note Visit Start Time 12:02 Visit Stop Time 12:47 Total Visit Minutes 45 Visit Number 08/24 Number of CHISELER HEAD Visits 1 Evaluation Information Evaluation Date 12/25/22 PT-OP-B Current Condition Start: 12/25/22 09:40 Freq: Status: Active Protocol: Document 12/25/22 09:46 ES (Rec: 12/25/22 12:31 ES [id number]) Current Condition History of Current Condition Onset Date November 2022 Current Complaints Balance History of Current Condition Patient was hospitalized for about 1 week in November for CVA. Her left arm was most affected . 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 Arm has gotten much better though is having pain with overhead reaching and hanging. Primary complaint is of decreased balance confidence. Patient reported she doesn't trust her body to do what it's supposed to do. She is having trouble stepping down, especially on uneven or unstable surfaces like loose rock around her house. Has been using a cane for balance in those circumstances. Is afraid of tripping; has caught her feet on grass and lost her balance, though has not fallen. Wears trifocals with prism lenses which affects her peripheral vision and depth perception, has worn them for many years. Had COVID this winter and some other illnesses and was more sedentary than usual. Feels like she was already weaker than usual and then the stroke exacerbated it. Treatment Goals Patient/Caregiver Goals To get more confident with balance, to be able to walk around without worrying about tripping/falling. Prior Functional Status Baseline Function- Gait Indep without AD Baseline Function- Recreation/Hobbies Was active in gardening, yardwork, housework Current Functional Impairments (Reported) Functional Limitations- Mobility/Gait Uses cane for walking around outside/gardening. Functional Limitations- Recreation/ Back to gardening/yardwork now Hobbies but is having to be extra careful. PT-OP-C Subjective Start: 12/25/22 09:40 Freq: Status: Active Protocol: Document 01/02/23 12:02 SP (Rec: 01/02/23 12:50 SP [id number]) OP-PT Subjective Patient Comments Patient Comments Pt reports doing well with HEP , little tiring, states tummy little irritated so mindful of activity today. She states feeling better from catching bug from grandchildren. She demonstrates improvement in reaching OH with LUE better than usual but not normal, irritation at end feel able to do. PT-OP-D Balance Start: 12/25/22 09:40 Freq: Status: Active Protocol: Document 12/25/22 09:46 ES (Rec: 12/25/22 12:31 ES [id number]) Balance Tests mCTSIB mCTSIB Position 1 30 mCTSIB Position 2 30 mCTSIB Position 3 30 mCTSIB Position 4 30 Single Limb Standing Single Limb- Right 10 sec Single Limb- Left 10 sec Tandem Tandem Standing 15 sec, increased postural sway PT-OP-E Functional Tests Start: 12/25/22 09:40 Freq: Status: Active Protocol: Document 12/25/22 09:46 ES (Rec: 12/25/22 12:31 ES [id number]) Functional Tests Five Times Sit to Stand Test Score 12.75 sec Comments Norm for age = 11.4 sec; cutoff score for fall risk with CVA = 12 sec Squat Test Comments B knees go to L, difficulty returning to stand Single Leg Squat Test Comment Unable to do without UE support, medial collapse noted . PT-OP-K Range of Motion Start: 12/25/22 09:40 Freq: Status: Active Protocol: Document 12/25/22 09:46 ES (Rec: 12/25/22 12:31 ES [id number]) Shoulder Goniometric Range of Motion Shoulder Left Active Shoulder ROM WFL Yes Comments Pain at end range shoulder flexion PT-OP-M Strength Start: 12/25/22 09:40 Freq: Status: Active Protocol: Document 12/25/22 09:46 ES (Rec: 12/25/22 12:31 ES [id number]) Shoulder Strength Shoulder Manual Muscle Testing Left Flexion 4 Good Extension 4+ Good+ Abduction (C5) 4 Good External Rotation 4 Good Internal Rotation 4+ Good+ PT-OP-Q Treatments Start: 12/25/22 09:40 Freq: Status: Active Protocol: Document 01/02/23 12:02 SP (Rec: 01/02/23 12:50 SP [id number]) Therapeutic Exercises Supine Exercises wand Supine Exercise Name 1. FF 2. serratus press Side bilateral Equipment Used wand Reps/Minutes x10 each Comments cued slow con/ecc painfree motion Standing Exercises L shld isometric Standing Exercise Name added HEP: IR, ER, ADD, ext Side left Reps/Minutes 5 SH x5 2x day Comments cued humeral dep, scap set Tandem stance Standing Exercise Name instructed for HEP Equipment Used corner back chair front- improve stab Reps/Minutes x30s Comments cued elongation, TA, hip abd fac SLS Standing Exercise Name instructed for HEP Side bilateral Equipment Used corner back chair front- improve stab Reps/Minutes x30s Comments cued elongation, TA, hip abd fac Manual Therapy Treatment Soft Tissue Mobilization L shld Body Location bicep, distal pec, deltoid, UT Mobilization Type Strumming,Sustained Pressure, Other Intensity/Depth Moderate Body Position Supine Comments STMs, sustained pressure w/ FM : ER, FF Joint Mobilizations L GH Jt Direction inferior, AP w/ FM Comments w/ FM of FF and ER (45 deg abd ) PT-OP-T Assessment and Plan Start: 12/25/22 09:40 Freq: Status: Active Protocol: Document 01/02/23 12:02 SP (Rec: 01/02/23 12:50 SP [id number]) Physical Therapy Assessment Goals Three Impairment Balance/gait [facility] Goal (LTG) Patient will be able to ambulate on uneven and inclined surface without need for AD. LTG Duration 4 weeks (01/22/23) Two Impairment Strength/balance Battery Assembler Dry Cell Goal (LTG) Patient will be indep in HEP/ community fitness class to address strength and balance. LTG Duration 4 weeks (01/22/23) One Impairment L shoulder pain/weakness [facility] Goal (LTG) Patient will be independent with HEP to address L shoulder strength and will be able to perform full L shoulder flexion without increase in pain. LTG Duration 4 weeks (01/22/23) Assessment Summary Assessment Pt improved AAROM w/ wand FF and serratus press initiated this tx with reports less tension as reps progress post manual tx to anterior L shld. Cues required for postural elongation and minor scap retract and humeral inferior positioning during added isometrics painfree reports with corrections. Adjusted location of tandem and SLS balance exercises in corner with awareness of postural elongation, core and glut facilitation more confidence safety with support as needed of corner and chair back positioning in front of her. Physical Therapy Plan Frequency and Duration Frequency of Treatment 1x/Week Duration of treatment (weeks) 4 Plan of Care Start Date 12/25/22 Plan of Care End Date 01/22/23 Therapeutic Interventions Therapeutic Interventions Balance Training,Home Exercise Program,Neuromuscular Re- education,Patient/Caregiver Education,Self-Care/Home Management,Therapeutic Activities,Therapeutic Exercises Next Visit Focus/Plan Next Note Type Treatment Note Next Visit Plan Instruct self STMs, check added isometrics and AAROM wand last tx. Ask balance in corner positioning, provide HO if wishes next tx for set up. POC: HEP continue progress L RC/shoulder strength, functional LE strength including SL strengthening.
--- NOTE | 2023-01-05 14:43 | PT.OTN ---
Current Diagnoses Cerebral infarction, unspecified (01/05/23) Hemiplegia and hemiparesis following cerebral infarction affecting left non-dominant side (01/05/23) Unsteadiness on feet (01/05/23) Other symptoms and signs involving the musculoskeletal system (01/05/23) Physical Therapy Treatment Note PT-OP-A Visit Information Start: 12/25/22 09:40 Freq: Status: Active Protocol: Document 01/05/23 11:49 ES (Rec: 01/05/23 12:32 ES [id number]) Out-Patient Physical Therapy Visit Information Visit Information Visit Type Treatment Note Visit Start Time 11:50 Visit Stop Time 12:30 Total Visit Minutes 40 Visit Number 3/12 Number of PIPE FITTER MARINE Visits 0 Evaluation Information Evaluation Date 12/25/22 PT-OP-B Current Condition Start: 12/25/22 09:40 Freq: Status: Active Protocol: Document 12/25/22 09:46 ES (Rec: 12/25/22 12:31 ES [id number]) Current Condition History of Current Condition Onset Date November 2022 Current Complaints Balance History of Current Condition Patient was hospitalized for about 1 week in November for CVA. Her left arm was most affected . 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 Arm has gotten much better though is having pain with overhead reaching and hanging. Primary complaint is of decreased balance confidence. Patient reported she doesn't trust her body to do what it's supposed to do. She is having trouble stepping down, especially on uneven or unstable surfaces like loose rock around her house. Has been using a cane for balance in those circumstances. Is afraid of tripping; has caught her feet on grass and lost her balance, though has not fallen. Wears trifocals with prism lenses which affects her peripheral vision and depth perception, has worn them for many years. Had COVID this winter and some other illnesses and was more sedentary than usual. Feels like she was already weaker than usual and then the stroke exacerbated it. Treatment Goals Patient/Caregiver Goals To get more confident with balance, to be able to walk around without worrying about tripping/falling. Prior Functional Status Baseline Function- Gait Indep without AD Baseline Function- Recreation/Hobbies Was active in gardening, yardwork, housework Current Functional Impairments (Reported) Functional Limitations- Mobility/Gait Uses cane for walking around outside/gardening. Functional Limitations- Recreation/ Back to gardening/yardwork now Hobbies but is having to be extra careful. PT-OP-C Subjective Start: 12/25/22 09:40 Freq: Status: Active Protocol: Document 01/05/23 11:49 ES (Rec: 01/05/23 12:32 ES [id number]) OP-PT Subjective Patient Comments Patient Comments Patient reported that her shoulder feels better since last visit, isn't hurting as much, though still having trouble lifting any weight through that side. Still feeling unsteady with stepping up/down while working in her yard/garden. PT-OP-D Balance Start: 12/25/22 09:40 Freq: Status: Active Protocol: Document 12/25/22 09:46 ES (Rec: 12/25/22 12:31 ES [id number]) Balance Tests mCTSIB mCTSIB Position 1 30 mCTSIB Position 2 30 mCTSIB Position 3 30 mCTSIB Position 4 30 Single Limb Standing Single Limb- Right 10 sec Single Limb- Left 10 sec Tandem Tandem Standing 15 sec, increased postural sway PT-OP-E Functional Tests Start: 12/25/22 09:40 Freq: Status: Active Protocol: Document 12/25/22 09:46 ES (Rec: 12/25/22 12:31 ES [id number]) Functional Tests Five Times Sit to Stand Test Score 12.75 sec Comments Norm for age = 11.4 sec; cutoff score for fall risk with CVA = 12 sec Squat Test Comments B knees go to L, difficulty returning to stand Single Leg Squat Test Comment Unable to do without UE support, medial collapse noted . PT-OP-K Range of Motion Start: 12/25/22 09:40 Freq: Status: Active Protocol: Document 12/25/22 09:46 ES (Rec: 12/25/22 12:31 ES [id number]) Shoulder Goniometric Range of Motion Shoulder Left Active Shoulder ROM WFL Yes Comments Pain at end range shoulder flexion PT-OP-M Strength Start: 12/25/22 09:40 Freq: Status: Active Protocol: Document 12/25/22 09:46 ES (Rec: 12/25/22 12:31 ES [id number]) Shoulder Strength Shoulder Manual Muscle Testing Left Flexion 4 Good Extension 4+ Good+ Abduction (C5) 4 Good External Rotation 4 Good Internal Rotation 4+ Good+ PT-OP-Q Treatments Start: 12/25/22 09:40 Freq: Status: Active Protocol: Document 01/05/23 11:49 ES (Rec: 01/05/23 12:32 ES [id number]) Cardio Equipment Recumbent Stepper (Sci-Fit) Duration (Minutes) 7 Resistance 2.0 Seat Position 7 Other UE/LE Therapeutic Exercises Sidelying Exercises Open book Side left Reps/Minutes 3x15 sec Comments Instructed for home Standing Exercises Side step up/down Side bilateral Equipment Used 6 step, no UE support Reps/Minutes x10 Comments Instructed for home, cued for hip/knee alignment Step down Side bilateral Equipment Used 6 step, no UE support Reps/Minutes x10 Comments Instructed for home, cued for hip/knee alignment Step up Side bilateral Equipment Used 6 step, no UE support Reps/Minutes x10 Comments Instructed for HEP Neuro Re-Education Treatment Balance Activities Modified SLS Details One foot on 4 progressing to 6 step Comments Head turns side to side and up /down 2x30 sec ea side. Eyes closed x30 sec ea side. Instructed for home. PT-OP-T Assessment and Plan Start: 12/25/22 09:40 Freq: Status: Active Protocol: Document 01/05/23 11:49 ES (Rec: 01/05/23 12:32 ES [id number]) Physical Therapy Assessment Goals Three Impairment Balance/gait Radiosonde Specialist Goal (LTG) Patient will be able to ambulate on uneven and inclined surface without need for AD. LTG Duration 4 weeks (01/22/23) Two Impairment Strength/balance Radiosonde Specialist Goal (LTG) Patient will be indep in HEP/ community fitness class to address strength and balance. LTG Duration 4 weeks (01/22/23) One Impairment L shoulder pain/weakness [facility] Goal (LTG) Patient will be independent with HEP to address L shoulder strength and will be able to perform full L shoulder flexion without increase in pain. LTG Duration 4 weeks (01/22/23) Assessment Summary Assessment Patient demonstrates forward shoulder and increased kyphosis likely contributing to pain with overhead reaching . She reported decreased pain with raising arm overhead after open book exercise for chest and upper back mobility. She was challenged with modified SLS with foot on stair, especially with head turns. She was fatigued with stepping exercises on stair. Physical Therapy Plan Frequency and Duration Frequency of Treatment 1x/Week Duration of treatment (weeks) 4 Plan of Care Start Date 12/25/22 Plan of Care End Date 01/22/23 Therapeutic Interventions Therapeutic Interventions Balance Training,Home Exercise Program,Neuromuscular Re- education,Patient/Caregiver Education,Self-Care/Home Management,Therapeutic Activities,Therapeutic Exercises Next Visit Focus/Plan Next Note Type Treatment Note Next Visit Plan Review shoulder HEP, progress RC strengthening as indicated. Manual therapy as needed.
--- NOTE | 2023-01-20 13:40 | PT.OTN ---
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-dominant side (01/20/23) Unsteadiness on feet (01/20/23) Other symptoms and signs involving the musculoskeletal system (01/20/23) Physical Therapy Treatment Note PT-OP-A Visit Information Start: 12/25/22 09:40 Freq: Status: Active Protocol: Document 01/20/23 12:59 ES (Rec: 01/20/23 13:14 ES [id number]) Out-Patient Physical Therapy Visit Information Visit Information Visit Type Treatment Note Visit Start Time 13:00 Visit Stop Time 13:33 Total Visit Minutes 33 Visit Number 4/12 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 Her left arm was most affected . Went home after hospitalization and had HH PT/ OT/CUSTOMER CARE CONSULTANT for about 4 weeks. Arm has gotten much better though is having pain with overhead reaching and hanging. Primary complaint is of decreased balance confidence. Patient reported she doesn't trust her body to do what it's supposed to do. She is having trouble stepping down, especially on uneven or unstable surfaces like loose rock around her house. Has been using a cane for balance in those circumstances. Is afraid of tripping; has caught her feet on grass and lost her balance, though has not fallen. Wears trifocals with prism lenses which affects her peripheral vision and depth perception, has worn them for many years. Had COVID this winter and some other illnesses and was more sedentary than usual. Feels like she was already weaker than usual and then the stroke exacerbated it. Treatment Goals Patient/Caregiver Goals To get more confident with balance, to be able to walk around without worrying about tripping/falling. Prior Functional Status Baseline Function- Gait Indep without AD Baseline Function- Recreation/Hobbies Was active in gardening, yardwork, housework Current Functional Impairments (Reported) Functional Limitations- Mobility/Gait Uses cane for walking around outside/gardening. Functional Limitations- Recreation/ Back to gardening/yardwork now Hobbies but is having to be extra careful. PT-OP-C Subjective Start: 12/25/22 09:40 Freq: Status: Active Protocol: Document 01/20/23 12:59 ES (Rec: 01/20/23 13:14 ES [id number]) OP-PT Subjective Patient Comments Patient Comments Patient reported she was out of town to see some family since last visit. Did a lot of yardwork and played with grand kids. Noticed her shoulder didn't struggle as much as it had before when holding/lifting kids. Still has some pain when hanging from her arm overhead (holding onto doorway and hanging). Had a follow up with neurologist and doesn't need to go back, doing well. Is working with heat curer for afib. Stated her balance has not been an issue the past couple weeks. Is feeling like she is back to her normal activity and can continue on her own with her ex's. PT-OP-D Balance Start: 12/25/22 09:40 Freq: Status: Active Protocol: Document 12/25/22 09:46 ES (Rec: 12/25/22 12:31 ES [id number]) Balance Tests mCTSIB mCTSIB Position 1 30 mCTSIB Position 2 30 mCTSIB Position 3 30 mCTSIB Position 4 30 Single Limb Standing Single Limb- Right 10 sec Single Limb- Left 10 sec Tandem Tandem Standing 15 sec, increased postural sway PT-OP-E Functional Tests Start: 12/25/22 09:40 Freq: Status: Active Protocol: Document 01/20/23 12:59 ES (Rec: 01/20/23 13:29 ES [id number]) Functional Tests Five Times Sit to Stand Test Score 10 sec Squat Test Comments Improved neutral hip position, able to stand with minimal difficulty PT-OP-K Range of Motion Start: 12/25/22 09:40 Freq: Status: Active Protocol: Document 01/20/23 12:59 ES (Rec: 01/20/23 13:26 ES [id number]) Shoulder Goniometric Range of Motion Shoulder Left Active Comments Minimal pain end range flexion , otherwise equal and no pain PT-OP-M Strength Start: 12/25/22 09:40 Freq: Status: Active Protocol: Document 01/20/23 12:59 ES (Rec: 01/20/23 13:26 ES [id number]) Shoulder Strength Shoulder Manual Muscle Testing Left Flexion 4+ Good+ Extension 5 Normal Abduction (C5) 5 Normal External Rotation 4+ Good+ Internal Rotation 5 Normal PT-OP-Q Treatments Start: 12/25/22 09:40 Freq: Status: Active Protocol: Document 01/20/23 12:59 ES (Rec: 01/20/23 13:14 ES [id number]) Cardio Equipment Recumbent Stepper (Sci-Fit) Duration (Minutes) 8 Resistance 2.5 Seat Position 7 Other UE/LE Therapeutic Exercises Sitting Exercises Pulldown Resistance L4 band Reps/Minutes 2x15 Comments Instructed for home, cued for scap retract and shoulder ER Chair squat Sitting Exercise Name 5xSTS Comments 10 sec Other Exercises HEP review Comments Reviewed handouts with patient PT-OP-T Assessment and Plan Start: 12/25/22 09:40 Freq: Status: Active Protocol: Document 01/20/23 12:59 ES (Rec: 01/20/23 13:14 ES [id number]) Physical Therapy Assessment Goals Three Impairment Balance/gait Impairment 01/20/23: able to walk on all surfaces without AD Coagulation Operator Goal (LTG) Patient will be able to ambulate on uneven and inclined surface without need for AD. LTG Duration 4 weeks (01/22/23) - met Two Impairment Strength/balance Coagulation Operator Goal (LTG) Patient will be indep in HEP/ community fitness class to address strength and balance. LTG Duration 4 weeks (01/22/23) - met One Impairment L shoulder pain/weakness Chcf Goal (LTG) Patient will be independent with HEP to address L shoulder strength and will be able to perform full L shoulder flexion without increase in pain. LTG Duration 4 weeks (01/22/23) - met Progress Towards Goals Progress Towards Goals Goals Met Assessment Summary Assessment Patient was seen for a total of 4 visits for strengthening, UE ROM and stretching ex's, HEP instruction, and balance training. She made excellent progress with therapy, reporting decreased pain and increased functional use of LUE, increased strength L shoulder, increased balance, and increased confidence. She is indep with her HEP. She has met all goals for PT and is appropriate to d/c to indep program. Physical Therapy Plan Frequency and Duration Frequency of Treatment 1x/Week Duration of treatment (weeks) 4 Plan of Care Start Date 12/25/22 Plan of Care End Date 01/22/23 Therapeutic Interventions Therapeutic Interventions Balance Training,Home Exercise Program,Neuromuscular Re- education,Patient/Caregiver Education,Self-Care/Home Management,Therapeutic Activities,Therapeutic Exercises Discharge Physical Therapy Discharge Reasons Goals Met
== END 2023-01-21 09:51 | disposition home or self-care (01) ==
LOC: PHYS 13:00
PROVIDERS: Absent Provider Nurse Practitioner; Family Provider Nurse Practitioner; PCP Nurse Practitioner; Referring Provider Nurse Practitioner; Visit Provider Nurse Practitioner
DX: I63.9 Cerebral infarction, unspecified (principal); R29.898 Other symptoms and signs involving the musculoskeletal system; I69.354 Hemiplegia and hemiparesis following cerebral infarction affecting left non-dominant side; R26.81 Unsteadiness on feet
CPT/HCPCS: 97110; 97112; 97140; 97161

== ENCOUNTER → 2023-06-09 11:36 | Outpatient (CLI) | payer OTHER, MEDICAID, SELFPAY ==
[2023-06-09 12:40] LABS: Add Manual Diff / Slide Review NO; Basophils Absolute Auto 0 /uL (0-100); Basophils Percent Auto 0.2 % (0-2); Eosinophils Absolute Auto 0 /uL (0-450); Hematocrit 35.8 % (36-46); Hemoglobin 12.3 g/dL (12.0-16.0); Lymphocytes Absolute Auto 400 /uL (1100-4500); Lymphocytes Percent Auto 4.4 % (25-40); Mean Corpuscular HGB Conc 34.5 % (30-36); Mean Corpuscular Hemoglobin 33.8 PG (26-34); Mean Corpuscular Volume 97.8 fL (80-100); Monocytes Absolute Auto 400 /uL (0-900); Monocytes Percent Auto 4.4 % (3-14); Neutrophils Absolute Auto 8900 /uL (1500-7000); Platelet Count 65 X10^3/uL (150-400); Red Blood Cell Count 3.66 X10^6/uL (4.0-5.2); Red Cell Distribution Width 14.4 % (11.6-14.8); White Blood Cell Count 9.8 X10^3/uL (4.5-11.0)
[2023-06-09 12:53] LABS: HEMOLYSIS < 15 (0-50); Iron 82 ug/dL (37-170)
[2023-06-09 12:58] LABS: Alanine Aminotransferase 55 IU/L (<35); Albumin 3.9 g/dL (3.5-5.0); Alkaline Phosphatase 84 U/L (38-126); Aspartate Aminotransferase 86 IU/L (14-36); BUN Creatinine Ratio 29.5 (6-22); Bilirubin Total 1.3 mg/dL (0.2-1.3); Blood Urea Nitrogen 18 mg/dL (7-17); Calcium 9.9 mg/dL (8.4-10.2); Carbon Dioxide 23 mmol/L (22-32); Chloride 104 mmol/L (98-107); Estimated Glomerular Filt Rate > 60 mL/min (>60); Globulin 3.9 g/dL (1.7-4.1); Glucose 158 mg/dL (80-110); HEMOLYSIS 18 (0-50); Magnesium 1.4 mg/dL (1.6-2.3); Potassium 3.8 mmol/L (3.4-5.1); Sodium 137 mmol/L (137-145); Total Protein 7.8 g/dL (6.3-8.2)
[2023-06-09 13:03] LABS: Percent Iron Saturation 29 % (15-50); Total Iron Binding Capacity 285 ug/dL (265-497); Transferrin 250 mg/dL (206-381)
[2023-06-09 13:09] LABS: Free T3, Triiodothyronine Free 3.59 pg/mL (2.77-5.27)
[2023-06-09 13:24] LABS: Thyroid Stimulating Hormone 0.122 uIU/mL (0.47-4.68)
== END ==
PROVIDERS: Family Provider Nurse Practitioner; PCP Nurse Practitioner; Referring Provider Internal Medicine Endocrinology, Diabetes & Metabolism; Visit Provider Internal Medicine Endocrinology, Diabetes & Metabolism
DX: E03.9 Hypothyroidism, unspecified (principal); D68.9 Coagulation defect, unspecified; K92.2 Gastrointestinal hemorrhage, unspecified; K72.90 Hepatic failure, unspecified without coma; I48.0 Paroxysmal atrial fibrillation
CPT/HCPCS: 36415; 80053; 83540; 83550; 83735; 84443; 84481; 85025

== ENCOUNTER → 2023-06-16 11:39 | Outpatient (CLI) | payer OTHER, MEDICAID, SELFPAY ==
[2023-06-16 13:07] LABS: Add Manual Diff / Slide Review NO; Basophils Absolute Auto 0 /uL (0-100); Basophils Percent Auto 0.8 % (0-2); Eosinophils Absolute Auto 100 /uL (0-450); Eosinophils Percent Auto 3.5 % (2-4); Hematocrit 37.4 % (36-46); Hemoglobin 12.9 g/dL (12.0-16.0); Lymphocytes Absolute Auto 700 /uL (1100-4500); Mean Corpuscular HGB Conc 34.6 % (30-36); Mean Corpuscular Hemoglobin 33.4 PG (26-34); Mean Corpuscular Volume 96.7 fL (80-100); Monocytes Absolute Auto 600 /uL (0-900); Monocytes Percent Auto 15.1 % (3-14); Neutrophils Absolute Auto 2700 /uL (1500-7000); Neutrophils Percent Auto 63.6 % (50-75); Platelet Count 75 X10^3/uL (150-400); Red Blood Cell Count 3.86 X10^6/uL (4.0-5.2); Red Cell Distribution Width 14.2 % (11.6-14.8); White Blood Cell Count 4.2 X10^3/uL (4.5-11.0)
[2023-06-16 13:23] LABS: HEMOLYSIS < 15 (0-50); Iron 106 ug/dL (37-170)
[2023-06-16 13:26] LABS: Alanine Aminotransferase 68 IU/L (<35); Albumin 3.9 g/dL (3.5-5.0); Albumin Globulin Ratio 1.1 (1.0-2.8); Alkaline Phosphatase 85 U/L (38-126); Aspartate Aminotransferase 112 IU/L (14-36); Bilirubin Total 1.7 mg/dL (0.2-1.3); Blood Urea Nitrogen 15 mg/dL (7-17); Carbon Dioxide 25 mmol/L (22-32); Chloride 105 mmol/L (98-107); Estimated Glomerular Filt Rate > 60 mL/min (>60); Globulin 3.7 g/dL (1.7-4.1); Glucose 120 mg/dL (80-110); HEMOLYSIS < 15 (0-50); Potassium 3.6 mmol/L (3.4-5.1); Sodium 137 mmol/L (137-145); Total Protein 7.6 g/dL (6.3-8.2)
[2023-06-16 13:38] LABS: Percent Iron Saturation 35 % (15-50); Total Iron Binding Capacity 305 ug/dL (265-497); Transferrin 242 mg/dL (206-381)
[2023-06-16 14:03] LABS: Ferritin 289 ng/mL (11-264)
== END ==
PROVIDERS: Family Provider Nurse Practitioner; PCP Nurse Practitioner; Referring Provider Nurse Practitioner; Visit Provider Nurse Practitioner
DX: D64.9 Anemia, unspecified (principal); K92.2 Gastrointestinal hemorrhage, unspecified; D68.9 Coagulation defect, unspecified; K64.8 Other hemorrhoids
CPT/HCPCS: 36415; 80053; 82728; 83540; 83550; 85025

== ENCOUNTER → 2023-07-07 11:51 | Outpatient (CLI) | payer OTHER, MEDICAID, SELFPAY ==
[2023-07-07 13:05] LABS: Add Manual Diff / Slide Review NO; Basophils Absolute Auto 0 /uL (0-100); Basophils Percent Auto 0.9 % (0-2); Eosinophils Absolute Auto 100 /uL (0-450); Eosinophils Percent Auto 2.6 % (2-4); Hematocrit 34.9 % (36-46); Lymphocytes Absolute Auto 1000 /uL (1100-4500); Lymphocytes Percent Auto 23.8 % (25-40); Mean Corpuscular HGB Conc 34.4 % (30-36); Mean Corpuscular Hemoglobin 34.1 PG (26-34); Monocytes Absolute Auto 800 /uL (0-900); Monocytes Percent Auto 18.1 % (3-14); Neutrophils Absolute Auto 2300 /uL (1500-7000); Neutrophils Percent Auto 54.6 % (50-75); Platelet Count 80 X10^3/uL (150-400); Red Blood Cell Count 3.52 X10^6/uL (4.0-5.2); Red Cell Distribution Width 15.2 % (11.6-14.8); White Blood Cell Count 4.3 X10^3/uL (4.5-11.0)
[2023-07-07 13:18] LABS: HEMOLYSIS < 15 (0-50); Iron 236 ug/dL (37-170)
[2023-07-07 13:28] LABS: Percent Iron Saturation 70 % (15-50); Total Iron Binding Capacity 336 ug/dL (265-497)
[2023-07-07 13:41] LABS: Transferrin 265 mg/dL (206-381)
[2023-07-07 14:52] LABS: Vitamin B12 996 pg/mL (239-931)
== END ==
PROVIDERS: Family Provider Nurse Practitioner; PCP Nurse Practitioner; Referring Provider Nurse Practitioner; Visit Provider Nurse Practitioner
DX: K64.8 Other hemorrhoids (principal)
CPT/HCPCS: 36415; 82607; 83540; 83550; 85025

== ENCOUNTER 2023-08-06 22:14 | Emergency (ER) | payer OTHER, MEDICAID, SELFPAY ==
[2023-08-06 22:15] VITALS: BP 118/81; PULSE 86; RESP 16; TEMP 36.6; O2SAT 94; BMI 22.6
--- NOTE | 2023-08-06 22:32 | ED.ALCOHOL ---
HPI - Alcohol General Chief Complaint: Toxicology Problem Stated Complaint: GI issues Time Seen by Provider: 08/06/23 22:20 Source: patient and EMS Mode of arrival: EMS History of Present Illness HPI narrative: 63yoF with PMH alcohol use disorder presents by EMS from home for alcohol intoxication. Patient apparently drank a very large bottle of wine. She got scared and called a crisis line, who then called EMS for her. patient states she has esophageal varices that are going to be evaluated next week by her doctor. She states she has intermittent hemorrhoidal bleeding x weeks and has an upcoming appointment to have these addressed. Related Data Home Medications Medication Instructions Recorded Confirmed liothyronine 5 mcg tablet (Cytomel) 10 mcg PO DAILY 05/31/18 04/17/23 lactulose 10 gram/15 mL oral 15 - 30 ml PO DAILY PRN 10/16/22 04/17/23 solution constipation nadolol 20 mg tablet 30 mg PO ONCE 11/19/22 04/17/23 doxepin 3 mg tablet 3 mg PO BEDTIME 04/17/23 04/17/23 oxycodone-acetaminophen 5 mg-325 tab PO 06/16/23 06/16/23 mg tablet rifaximin 550 mg tablet (Xifaxan) 550 mg PO BID 06/16/23 06/16/23 Previous Rx's Medication Instructions Recorded clobetasol 0.05 % topical ointment 1 applic topical QAM AND QPM #30 10/20/22 grams levothyroxine 100 mcg capsule 100 mcg PO DAILY #90 caps 10/20/22 furosemide 20 mg tablet 40 mg (2 x 20 mg) PO QAM #60 tabs 04/13/23 vit,calcium no.40-iron 1 tab PO DAILY #90 tabs 04/16/23 fum 27 mg iron-folate no.1 1 mg tablet lorazepam 1 mg tablet 1 mg PO DAILY PRN anxiety #30 tabs 04/27/23 pregabalin 50 mg capsule 50 mg PO TID #270 caps 04/27/23 potassium chloride 10 mEq See Rx Instructions .Route 05/21/23 tablet,extended release(part/cryst) .COMPLEX #30 tabs spironolactone 50 mg tablet 50 mg PO DAILY #90 tabs 06/30/23 Allergies Allergy/AdvReac Type Severity Reaction Status Date / Time No Known Drug Allergies Allergy Verified 06/16/23 10:41 Review of Systems Review of Systems Narrative: negative except as noted above Patient History Medical History Bleeding internal hemorrhoids Pancreatic lesion (~04/18/23) Weakness of left upper extremity Stroke Atrial fibrillation Anemia, macrocytic Anemia, blood loss Alcohol use disorder, severe, in early remission Hemorrhoids, internal Depression Shortness of breath Hypercalcemia Weight gain Ascites due to alcoholic cirrhosis SBO (small bowel obstruction) Pancreatitis GERD (gastroesophageal reflux disease) Intermittent palpitations (04/2019) History of blood transfusion (10/2015) Coagulation disorder (2012) Hypothyroidism Hypertension History of heavy periods (2014) Ovarian cyst (2012) Painful menstrual periods (2012) Measles Mumps Chicken pox Eczema (2014) Psoriasis (2014) PTSD (post-traumatic stress disorder) (1999) Anxiety EV (esophageal varices) (10/2015) Portal hypertensive gastropathy (05/2015) Nonalcoholic fatty liver disease GI bleeding (2015) Cirrhosis (2012) Cardiac arrhythmia History of alcohol abuse (12/27/15) Surgical History H/O bilateral oophorectomy History of appendectomy History of inguinal hernia repair History of cholecystectomy History of esophagogastroduodenoscopy (EGD) (05/2015) Status post laparoscopic supracervical hysterectomy (08/25/16) Status post hysteroscopy (06/17/11) Status post hernia repair Status post appendectomy History of esophagogastroduodenoscopy (EGD) (01/2009) Status post colonoscopy (01/2009) Family History Grandfather Heart disease VT (myocardial infarction) Grandmother Alcoholism Father No problems noted. Mother No problems noted. Grandfather Heart disease Grandmother Colon cancer Brother No problems noted. Social History Smoking Status: Never smoker alcohol intake: current Smoking Status: Never smoker alcohol intake frequency: holidays/special occasions only Substance Use Type: does not use Exam Initial Vital Signs Initial Vital Signs: Vital Signs Temperature 97.8 F 08/06/23 22:15 Pulse Rate 86 08/06/23 22:15 Respiratory Rate 16 08/06/23 22:15 Blood Pressure 118/81 08/06/23 22:15 Pulse Oximetry 94 08/06/23 22:15 Oxygen Delivery Method Room Air 08/06/23 22:15 Const: Awake, alert, intoxicated Cardiac: regular rate, regular rhythm RESP: unlabored, clear bilaterally, no wheezing GI: Atraumatic, soft, nontender Skin: Warm, Dry, intact, no rashes Neuro: AO x3, CN II-XII grossly intact, moves all extremities Course Orders Ordered: ED Orders 08/06/23 22:40 CBC Auto Diff [Complete Blood Count AUTO DIFF] Stat CMP [Comprehensive Metabolic Panel] Stat Discontinued Medications Acetaminophen (Acetaminophen 325 Mg Tablet) 975 mg PO NOW ONE Stop: 08/06/23 23:40 Last Admin: 08/06/23 23:44 Dose: 975 mg Documented By: MARYJO Folic Acid (Folic Acid 1 Mg Tablet) 1 mg PO NOW ONE Stop: 08/06/23 22:31 Last Admin: 08/06/23 22:51 Dose: 1 mg Documented By: MARYJO Thiamine HCl 200 mg/ Sodium (Chloride) 102 mls @ 408 mls/hr IV NOW ONE Stop: 08/06/23 22:32 Last Infusion: 08/06/23 23:15 Dose: Infused Documented By: Admin: 08/06/23 22:53 Dose: 408 mls/hr Documented By: MARYJO Sodium Chloride (Normal Saline 0.9%) 1,000 mls @ 1,000 mls/hr IV BOLUS ONE Stop: 08/06/23 23:30 Last Infusion: 08/06/23 23:47 Dose: Infused Documented By: Admin: 08/06/23 22:51 Dose: 1,000 mls/hr Documented By: MARYJO Vital Signs Vital signs: Vital Signs - 8 hr 08/06/23 23:43 08/07/23 00:00 08/07/23 00:00 Pulse Rate 70 71 Respiratory Rate Blood Pressure 85/52 L Pulse Oximetry 94 92 08/07/23 00:10 08/07/23 00:10 08/07/23 00:30 Pulse Rate 69 77 Respiratory Rate 18 Blood Pressure 103/59 L Pulse Oximetry 94 95 08/07/23 00:30 Pulse Rate Respiratory Rate 18 Blood Pressure 107/66 Pulse Oximetry MDM - Alcohol Lab Data 08/06/23 22:40 08/06/23 22:40 Labs: Lab Results 08/06/23 Range/Units 22:40 WBC 6.4 (4.5-11.0) X10^3/uL RBC 3.92 L (4.0-5.2) X10^6/uL Hgb 13.0 (12.0-16.0) g/dL Hct 37.7 (36-46) % MCV 96.1 (80-100) fL MCH 33.1 (26-34) PG MCHC 34.4 (30-36) % RDW 14.2 (11.6-14.8) % Plt Count 116 L (150-400) X10^3/uL Neut % (Auto) 54.1 (50-75) % Lymph % (Auto) 36.0 (25-40) % [place] % (Auto) 6.5 (3-14) % Eos % (Auto) 2.1 (2-4) % Baso % (Auto) 1.3 (0-2) % Neut # (Auto) 3500 (8876-1996) /uL Lymph # (Auto) 2300 (5175-0870) /uL [place] # (Auto) 400 (0-900) /uL Eos # (Auto) 100 (0-450) /uL Baso # (Auto) 100 (0-100) /uL Sodium 144 (137-145) mmol/L Potassium 3.7 (3.4-5.1) mmol/L Chloride 106 (98-107) mmol/L Carbon Dioxide 26 (22-32) mmol/L BUN 13 (7-17) mg/dL Creatinine 0.61 (0.52-1.04) mg/dL Estimated GFR > 60 (>60) mL/min BUN/Creatinine Ratio 21.3 (6-22) Glucose 100 (80-110) mg/dL Calcium 9.3 (8.4-10.2) mg/dL Total Bilirubin 1.1 (0.2-1.3) mg/dL AST 106 H (14-36) IU/L ALT 58 H (<35) IU/L Alkaline Phosphatase 81 (38-126) U/L Total Protein 8.3 H (6.3-8.2) g/dL Albumin 4.1 (3.5-5.0) g/dL Globulin 4.2 H (1.7-4.1) g/dL Albumin/Globulin Ratio 1.0 (1.0-2.8) MDM Narrative Medical decision making narrative: Brought in by EMS after becoming scared after drinking a bottle wine because ?my liver can fail?. Patient isn't even the 1 who called 911, this was allegedly someone from a crisis support line. Patient appears intoxicated but no acute distress. She reports intermittent blood per rectum 4 weeks. Laboratory work shows normal hemoglobin, she does have documented history of hemorrhoids and has an appointment on 08/13/2023 at [facility] with general surgery to discuss these hemorrhoids. Patient given thiamine folic acid, IV fluids. She subsequently stated she felt better and requested to go home. Patient discharged to [facility] to await a sober ride. Discharge Plan Departure Patient Disposition: Home Clinical Impression: Alcoholic intoxication Instructions: DI for Alcohol Use Disorder Prescriptions: No Action levothyroxine 100 mcg capsule 100 mcg PO DAILY Qty: 90 3RF furosemide 20 mg tablet 40 mg PO QAM Qty: 60 3RF Rx Instructions: Take 1 extra tab of 20mg (total 40mg) daily ,[id number] 1 27-1 mg tablet 1 tab PO DAILY Qty: 90 3RF Rx Instructions: Take 1 tab daily for anemia lorazepam 1 mg tablet 1 mg PO DAILY PRN (Reason: anxiety) Qty: 30 5RF pregabalin 50 mg capsule 50 mg PO TID Qty: 270 3RF potassium chloride 10 mEq tablet,ER particles/crystals See Rx Instructions .ROUTE .COMPLEX Qty: 30 0RF Dose Instruction: TAKE 2 TABLETS BY MOUTH DAILY FOR 7 DAYS, THEN REASSESS Rx Instructions: TAKE 2 TABLETS BY MOUTH DAILY FOR 7 DAYS, THEN REASSESS spironolactone 50 mg tablet 50 mg PO DAILY Qty: 90 3RF liothyronine [Cytomel] 5 mcg tablet 10 mcg PO DAILY lactulose 10 gram/15 mL solution 15 - 30 ml PO DAILY PRN (Reason: constipation) Patient Comments: Take 30mL daily if pt does not have 3 BMs per day nadolol 20 mg tablet 30 mg PO ONCE doxepin 3 mg tablet 3 mg PO BEDTIME oxycodone-acetaminophen 5-325 mg tablet PO Xifaxan 550 mg tablet 550 mg PO BID clobetasol 0.05 % ointment 1 applic topical QAM AND QPM Qty: 30 3RF Rx Instructions: Apply to itchy leg twice per day x2 weeks total. Referrals: Divina Lopes ARNP [Primary Care Provider] - Stand Alone Forms: Patient Portal/API
[2023-08-06 22:49] LABS: Add Manual Diff / Slide Review NO; Basophils Absolute Auto 100 /uL (0-100); Basophils Percent Auto 1.3 % (0-2); Eosinophils Absolute Auto 100 /uL (0-450); Eosinophils Percent Auto 2.1 % (2-4); Hematocrit 37.7 % (36-46); Lymphocytes Absolute Auto 2300 /uL (1100-4500); Mean Corpuscular HGB Conc 34.4 % (30-36); Mean Corpuscular Hemoglobin 33.1 PG (26-34); Mean Corpuscular Volume 96.1 fL (80-100); Monocytes Absolute Auto 400 /uL (0-900); Monocytes Percent Auto 6.5 % (3-14); Neutrophils Absolute Auto 3500 /uL (1500-7000); Neutrophils Percent Auto 54.1 % (50-75); Platelet Count 116 X10^3/uL (150-400); Red Blood Cell Count 3.92 X10^6/uL (4.0-5.2); Red Cell Distribution Width 14.2 % (11.6-14.8); White Blood Cell Count 6.4 X10^3/uL (4.5-11.0)
[2023-08-06] MEDS: FOLIC ACID 1 MG TABLET PO (22:51)
[2023-08-06] MEDS: SODIUM CHLORIDE 0.9% 1,000 ML 1000 ML IV (22:51)
[2023-08-06] MEDS: THIAMINE 200 MG in SODIUM CHLORIDE 0.9% 100 ML 408 MG IV (22:53)
[2023-08-06 23:04] LABS: Alanine Aminotransferase 58 IU/L (<35); Albumin 4.1 g/dL (3.5-5.0); Alkaline Phosphatase 81 U/L (38-126); Aspartate Aminotransferase 106 IU/L (14-36); BUN Creatinine Ratio 21.3 (6-22); Bilirubin Total 1.1 mg/dL (0.2-1.3); Blood Urea Nitrogen 13 mg/dL (7-17); Calcium 9.3 mg/dL (8.4-10.2); Carbon Dioxide 26 mmol/L (22-32); Chloride 106 mmol/L (98-107); Estimated Glomerular Filt Rate > 60 mL/min (>60); Globulin 4.2 g/dL (1.7-4.1); Glucose 100 mg/dL (80-110); HEMOLYSIS < 15 (0-50); Potassium 3.7 mmol/L (3.4-5.1); Sodium 144 mmol/L (137-145); Total Protein 8.3 g/dL (6.3-8.2)
[2023-08-06 23:43] VITALS: PULSE 70; O2SAT 94
[2023-08-06] MEDS: ACETAMINOPHEN 325 MG TABLET 975 MG PO (23:44)
[2023-08-07] VITALS: BP 85/52; PULSE 71; O2SAT 92
[2023-08-07 00:10] VITALS: BP 103/59; PULSE 69; RESP 18; O2SAT 94
[2023-08-07 00:30] VITALS: BP 107/66; PULSE 77; RESP 18; O2SAT 95
== END 2023-08-07 00:52 | disposition home or self-care (01) ==
PROVIDERS: Emergency Provider Emergency Medicine; Family Provider Nurse Practitioner; PCP Nurse Practitioner
DX: F10.129 Alcohol abuse with intoxication, unspecified (principal)
CPT/HCPCS: 80053; 85025; 96365; 99283; 99284

== ENCOUNTER 2023-08-07 22:48 | Emergency (ER) | payer OTHER, MEDICAID, SELFPAY ==
[2023-08-07 23:00] VITALS: BP 112/70; PULSE 100; RESP 18; TEMP 36.9; O2SAT 99; BMI 22.3
--- NOTE | 2023-08-07 23:05 | DI.CT.S_ITS ---
PROCEDURE: CT HEAD/BRAIN WO CON INDICATIONS: HALLUCINATIONS TECHNIQUE: Noncontrast 4.5 mm thick angled axial sections acquired from the foramen magnum to the vertex, with coronal and sagittal reformats. For radiation dose reduction, the following was used: automated exposure control, adjustment of mA and/or kV according to patient size. COMPARISON: [facility], CT, CT HEAD WITHOUT CONTRAST, 06/14/2023, 8:44. [facility], CT, CT HEAD/BRAIN WO CON, 11/03/2022, 16:57. FINDINGS: Image quality: Diagnostic. CSF spaces: Basal cisterns are patent. No extra-axial fluid collections. The ventricles are symmetric in size and shape. Brain: No intracranial bleeds or masses. There is cerebral volume loss for age. There are mild periventricular and deep white matter chronic small vessel ischemic changes. There is intracranial internal carotid artery atherosclerosis. Skull and face: Calvarium and visualized facial bones appear intact, without suspicious lesions. Sinuses: Visualized sinuses and mastoids are clear. IMPRESSION: No acute intracranial pathology. Dictated by: Pamela Ramirez M.D. on 08/07/2023 at 23:50 Approved by: Pamela Ramirez M.D. on 08/07/2023 at 23:51
--- NOTE | 2023-08-07 23:05 | DI.RAD.S_ITS ---
PROCEDURE: XR CHEST 1V INDICATIONS: AMS/HALLUCINATIONS TECHNIQUE: One view of the chest was acquired. COMPARISON: [facility], CR, XR CHEST 1V, 01/19/2022, 12:09. FINDINGS: Surgical changes and devices: None. Lungs and pleura: Lungs are clear. No pleural effusions or pneumothorax. Mediastinum: Mediastinal contours appear normal. Heart size is normal. Bones and chest wall: No suspicious bony lesions. Overlying soft tissues appear unremarkable. IMPRESSION: No acute cardiopulmonary abnormality is seen. Dictated by: Pamela Ramirez M.D. on 08/07/2023 at 23:40 Approved by: Pamela Ramirez M.D. on 08/07/2023 at 23:41
--- NOTE | 2023-08-07 23:39 | ED.PSYCH ---
HPI - Psych General Chief Complaint: Psychiatric Symptoms Stated Complaint: psych Time Seen by Provider: 08/07/23 22:53 Source: patient and EMS Mode of arrival: EMS History of Present Illness HPI Narrative: 63-year-old female with history of alcohol abuse, esophageal varices presents by EMS from home for evaluation. Patient called 911 because she heard screaming in her house and felt like it was haunted. Patient appears intoxicated. Related Data Home Medications Medication Instructions Recorded Confirmed liothyronine 5 mcg tablet (Cytomel) 10 mcg PO DAILY 05/31/18 04/17/23 lactulose 10 gram/15 mL oral 15 - 30 ml PO DAILY PRN 10/16/22 04/17/23 solution constipation nadolol 20 mg tablet 30 mg PO ONCE 11/19/22 04/17/23 doxepin 3 mg tablet 3 mg PO BEDTIME 04/17/23 04/17/23 oxycodone-acetaminophen 5 mg-325 tab PO 06/16/23 06/16/23 mg tablet rifaximin 550 mg tablet (Xifaxan) 550 mg PO BID 06/16/23 06/16/23 Previous Rx's Medication Instructions Recorded clobetasol 0.05 % topical ointment 1 applic topical QAM AND QPM #30 10/20/22 grams levothyroxine 100 mcg capsule 100 mcg PO DAILY #90 caps 10/20/22 furosemide 20 mg tablet 40 mg (2 x 20 mg) PO QAM #60 tabs 04/13/23 vit,calcium no.40-iron 1 tab PO DAILY #90 tabs 04/16/23 fum 27 mg iron-folate no.1 1 mg tablet lorazepam 1 mg tablet 1 mg PO DAILY PRN anxiety #30 tabs 04/27/23 pregabalin 50 mg capsule 50 mg PO TID #270 caps 04/27/23 potassium chloride 10 mEq See Rx Instructions .Route 05/21/23 tablet,extended release(part/cryst) .COMPLEX #30 tabs spironolactone 50 mg tablet 50 mg PO DAILY #90 tabs 06/30/23 Allergies Allergy/AdvReac Type Severity Reaction Status Date / Time No Known Drug Allergies Allergy Verified 06/16/23 10:41 Review of Systems Review of Systems Narrative: Limited due to intoxication Patient History Medical History Bleeding internal hemorrhoids Pancreatic lesion (~04/18/23) Weakness of left upper extremity Stroke Atrial fibrillation Anemia, macrocytic Anemia, blood loss Alcohol use disorder, severe, in early remission Hemorrhoids, internal Depression Shortness of breath Hypercalcemia Weight gain Ascites due to alcoholic cirrhosis SBO (small bowel obstruction) Pancreatitis GERD (gastroesophageal reflux disease) Intermittent palpitations (04/2019) History of blood transfusion (10/2015) Coagulation disorder (2012) Hypothyroidism Hypertension History of heavy periods (2014) Ovarian cyst (2012) Painful menstrual periods (2012) Measles Mumps Chicken pox Eczema (2014) Psoriasis (2014) PTSD (post-traumatic stress disorder) (1999) Anxiety EV (esophageal varices) (10/2015) Portal hypertensive gastropathy (05/2015) Nonalcoholic fatty liver disease GI bleeding (2015) Cirrhosis (2012) Cardiac arrhythmia History of alcohol abuse (12/27/15) Surgical History H/O bilateral oophorectomy History of appendectomy History of inguinal hernia repair History of cholecystectomy History of esophagogastroduodenoscopy (EGD) (05/2015) Status post laparoscopic supracervical hysterectomy (08/25/16) Status post hysteroscopy (06/17/11) Status post hernia repair Status post appendectomy History of esophagogastroduodenoscopy (EGD) (01/2009) Status post colonoscopy (01/2009) Family History Grandfather Heart disease [place] (myocardial infarction) Grandmother Alcoholism Father No problems noted. Mother No problems noted. Grandfather Heart disease Grandmother Colon cancer Brother No problems noted. Social History Smoking Status: Never smoker alcohol intake: current Smoking Status: Never smoker alcohol intake frequency: holidays/special occasions only Substance Use Type: does not use Exam Initial Vital Signs Initial Vital Signs: Vital Signs Temperature 98.4 F 08/07/23 23:00 Pulse Rate 100 H 08/07/23 23:00 Respiratory Rate 18 08/07/23 23:00 Blood Pressure 112/70 08/07/23 23:00 Pulse Oximetry 99 08/07/23 23:00 Oxygen Delivery Method Room Air 08/07/23 23:00 Const: Awake, intoxicated, disheveled, no acute distress Cardiac: regular rate, regular rhythm RESP: unlabored, clear bilaterally, no wheezing GI: Atraumatic, soft, nontender Skin: Warm, Dry, intact, no rashes Neuro: AO x3, CN II-XII grossly intact, moves all extremities Course Orders Ordered: ED Orders 08/07/23 23:05 CT head/brain wo con Stat Chest [XR chest 1V] Stat EKG-12 Lead Stat 08/07/23 23:55 Acetaminophen Stat CBC Auto Diff [Complete Blood Count AUTO DIFF] Stat CMP [Comprehensive Metabolic Panel] Stat Ethanol (ETOH) Stat Salicylate Stat TSH [Thyroid Stimulating Hormone] Stat 08/08/23 00:18 Ammonia (NH3) Stat Discontinued Medications Folic Acid (Folic Acid 1 Mg Tablet) 1 mg PO NOW ONE Stop: 08/07/23 23:06 Last Admin: 08/08/23 00:10 Dose: 1 mg Documented By: HANNAH Sodium Chloride (Normal Saline 0.9%) 1,000 mls @ 1,000 mls/hr IV BOLUS ONE Stop: 08/08/23 00:04 Last Infusion: 08/08/23 01:51 Dose: 0 mls/hr Documented By: Admin: 08/08/23 00:09 Dose: 1,000 mls/hr Documented By: HANNAH Thiamine HCl 200 mg/ Sodium (Chloride) 102 mls @ 408 mls/hr IV DAILY AGNIESZKA Thiamine HCl 200 mg/ Sodium (Chloride) 102 mls @ 408 mls/hr IV NOW ONE Stop: 08/07/23 23:23 Last Infusion: 08/08/23 00:30 Dose: Infused Documented By: Admin: 08/08/23 00:10 Dose: 408 mls/hr Documented By: HANNAH Lactulose (Lactulose 20 Gm/30 Ml Solution) 20 gm PO NOW ONE Stop: 08/08/23 00:47 Last Admin: 08/08/23 01:29 Dose: 20 gm Documented By: HANNAH Vital Signs Vital signs: Vital Signs - 8 hr 08/07/23 23:00 08/08/23 01:51 Temperature 98.4 F Pulse Rate 100 H 84 Respiratory Rate 18 16 Blood Pressure 112/70 Pulse Oximetry 99 98 Oxygen Delivery Method Room Air Room Air MDM - Psych Differential Diagnosis Differential diagnosis: Likely acute psychosis, depression and other (Alcohol intoxication) Lab Data 08/07/23 23:55 08/07/23 23:55 Labs: Lab Results 08/07/23 Range/Units 23:55 WBC 6.7 (4.5-11.0) X10^3/uL RBC 3.80 L (4.0-5.2) X10^6/uL Hgb 12.5 (12.0-16.0) g/dL Hct 36.6 (36-46) % MCV 96.2 (80-100) fL MCH 32.8 (26-34) PG MCHC 34.1 (30-36) % RDW 13.9 (11.6-14.8) % Plt Count 128 L (150-400) X10^3/uL Neut % (Auto) 62.5 (50-75) % Lymph % (Auto) 29.2 (25-40) % Sanders % (Auto) 6.4 (3-14) % Eos % (Auto) 0.6 L (2-4) % Baso % (Auto) 1.3 (0-2) % Neut # (Auto) 4200 (7019-9804) /uL Lymph # (Auto) 2000 (3193-6986) /uL Sanders # (Auto) 400 (0-900) /uL Eos # (Auto) 0 (0-450) /uL Baso # (Auto) 100 (0-100) /uL Sodium 146 H (137-145) mmol/L Potassium 4.0 (3.4-5.1) mmol/L Chloride 110 H (98-107) mmol/L Carbon Dioxide 20 L (22-32) mmol/L BUN 18 H (7-17) mg/dL Creatinine 0.60 (0.52-1.04) mg/dL Estimated GFR > 60 (>60) mL/min BUN/Creatinine Ratio 30.0 H (6-22) Glucose 91 (80-110) mg/dL Calcium 9.5 (8.4-10.2) mg/dL Total Bilirubin 1.4 H (0.2-1.3) mg/dL AST 108 H (14-36) IU/L ALT 53 H (<35) IU/L Alkaline Phosphatase 88 (38-126) U/L Ammonia 31 H (9-30) umol/L Total Protein 8.1 (6.3-8.2) g/dL Albumin 4.0 (3.5-5.0) g/dL Globulin 4.1 (1.7-4.1) g/dL Albumin/Globulin Ratio 1.0 (1.0-2.8) TSH 0.559 (0.47-4.68) uIU/mL Salicylates < 1.0 (<20) mg/dL Acetaminophen < 10 (10-30) ug/mL Ethyl Alcohol > 300 H ( - 10) mg/dL MDM Narrative Medical decision making narrative: Patient presenting for altered mental status. Seen yesterday by myself for alcohol intoxication. Patient recently relapsed again after being sober for a short amount of time. Stated that her house was haunted and the goes for screaming at her. She is currently awake, alert, intoxicated but cooperative with staff. Initially refused to state if she wanted to hurt herself to triage nurse, but on my evaluation she states she does not want to hurt herself. Labs significant for chronic thrombocytopenia, platelets 128 today. Minimal changes since yesterday. Ammonia level 31, alcohol measured greater than 300. CT of the brain negative for acute findings, chest x-ray unremarkable. Ammonia level was measured today to be 31, 1 point outside of range of normal. Patient was given thiamine, folic acid, IV fluids, lactulose. She was able to call her father, who arrived to pick her up to drive her home. Patient is strongly advised to cease drinking alcohol. Referral to [facility] provided if patient feels ready to attempt detox Discharge Plan Departure Patient Disposition: Home Clinical Impression: Alcohol intoxication Instructions: DI for Alcohol Use Disorder Activity Restrictions/Additional Instructions: Your ammonia level was 1 point outside of normal limits. This is likely from your drinking. If you continue to drink you may buildup ammonia in your blood stream which can cause confusion and altered behavior. Please stop drinking, go to rehab or detox. [facility] [address] [facility] [id number] Prescriptions: No Action levothyroxine 100 mcg capsule 100 mcg PO DAILY Qty: 90 3RF furosemide 20 mg tablet 40 mg PO QAM Qty: 60 3RF Rx Instructions: Take 1 extra tab of 20mg (total 40mg) daily ,calc.[id number] 1 27-1 mg tablet 1 tab PO DAILY Qty: 90 3RF Rx Instructions: Take 1 tab daily for anemia lorazepam 1 mg tablet 1 mg PO DAILY PRN (Reason: anxiety) Qty: 30 5RF pregabalin 50 mg capsule 50 mg PO TID Qty: 270 3RF potassium chloride 10 mEq tablet,ER particles/crystals See Rx Instructions .ROUTE .COMPLEX Qty: 30 0RF Dose Instruction: TAKE 2 TABLETS BY MOUTH DAILY FOR 7 DAYS, THEN REASSESS Rx Instructions: TAKE 2 TABLETS BY MOUTH DAILY FOR 7 DAYS, THEN REASSESS spironolactone 50 mg tablet 50 mg PO DAILY Qty: 90 3RF liothyronine [Cytomel] 5 mcg tablet 10 mcg PO DAILY lactulose 10 gram/15 mL solution 15 - 30 ml PO DAILY PRN (Reason: constipation) Patient Comments: Take 30mL daily if pt does not have 3 BMs per day nadolol 20 mg tablet 30 mg PO ONCE doxepin 3 mg tablet 3 mg PO BEDTIME oxycodone-acetaminophen 5-325 mg tablet PO Xifaxan 550 mg tablet 550 mg PO BID clobetasol 0.05 % ointment 1 applic topical QAM AND QPM Qty: 30 3RF Rx Instructions: Apply to itchy leg twice per day x2 weeks total. Referrals: Divina Lopes ARNP [Primary Care Provider] - Stand Alone Forms: Patient Portal/API
[2023-08-08] MEDS: SODIUM CHLORIDE 0.9% 1,000 ML 1000 ML IV (00:09)
[2023-08-08] MEDS: THIAMINE 200 MG in SODIUM CHLORIDE 0.9% 100 ML 408 MG IV (00:10)
[2023-08-08] MEDS: FOLIC ACID 1 MG TABLET PO (00:10)
[2023-08-08 00:12] LABS: Add Manual Diff / Slide Review NO; Basophils Absolute Auto 100 /uL (0-100); Basophils Percent Auto 1.3 % (0-2); Eosinophils Absolute Auto 0 /uL (0-450); Eosinophils Percent Auto 0.6 % (2-4); Hematocrit 36.6 % (36-46); Hemoglobin 12.5 g/dL (12.0-16.0); Lymphocytes Absolute Auto 2000 /uL (1100-4500); Lymphocytes Percent Auto 29.2 % (25-40); Mean Corpuscular HGB Conc 34.1 % (30-36); Mean Corpuscular Hemoglobin 32.8 PG (26-34); Mean Corpuscular Volume 96.2 fL (80-100); Monocytes Absolute Auto 400 /uL (0-900); Monocytes Percent Auto 6.4 % (3-14); Neutrophils Absolute Auto 4200 /uL (1500-7000); Neutrophils Percent Auto 62.5 % (50-75); Platelet Count 128 X10^3/uL (150-400); Red Cell Distribution Width 13.9 % (11.6-14.8); White Blood Cell Count 6.7 X10^3/uL (4.5-11.0)
[2023-08-08 00:28] LABS: Acetaminophen < 10 ug/mL (10-30); Alanine Aminotransferase 53 IU/L (<35); Alkaline Phosphatase 88 U/L (38-126); Aspartate Aminotransferase 108 IU/L (14-36); Bilirubin Total 1.4 mg/dL (0.2-1.3); Blood Urea Nitrogen 18 mg/dL (7-17); Calcium 9.5 mg/dL (8.4-10.2); Carbon Dioxide 20 mmol/L (22-32); Chloride 110 mmol/L (98-107); Estimated Glomerular Filt Rate > 60 mL/min (>60); Ethanol (ETOH) > 300 mg/dL; Globulin 4.1 g/dL (1.7-4.1); Glucose 91 mg/dL (80-110); HEMOLYSIS < 15 (0-50); Salicylate < 1.0 mg/dL (<20); Sodium 146 mmol/L (137-145); Total Protein 8.1 g/dL (6.3-8.2)
[2023-08-08 00:42] LABS: Ammonia (NH3) 31 umol/L (9-30)
[2023-08-08 01:05] LABS: Thyroid Stimulating Hormone 0.559 uIU/mL (0.47-4.68)
[2023-08-08] MEDS: LACTULOSE 20 GM/30 ML SOLUTION PO (01:29)
[2023-08-08 01:51] VITALS: PULSE 84; RESP 16; O2SAT 98
--- NOTE | 2023-08-08 01:53 | PC.NURSE ---
IVF's discontinued, patient being discharged home with father who is present to drive her home. Patient did not receive full liter of NS r/t to positioning of arm while infusing, patient would not leave arm in position that allowed for bolus rate. Staff redirected patient frequently during infusion, but patient only received approximately 600mls NS prior to DC.
== END 2023-08-08 01:58 | disposition home or self-care (01) ==
PROVIDERS: Emergency Provider Emergency Medicine; Family Provider Nurse Practitioner; PCP Nurse Practitioner
DX: F10.129 Alcohol abuse with intoxication, unspecified (principal); Y90.8 Blood alcohol level of 240 mg/100 ml or more; R07.9 Chest pain, unspecified
CPT/HCPCS: 36415; 70450; 71045; 80053; 80320; 80329; 82140; 84443; 85025; 93005; 96360; 96361; 99284; G0480

== ENCOUNTER → 2023-09-02 14:30 | Outpatient (CLI) | payer OTHER, MEDICAID, SELFPAY ==
[2023-09-02 17:03] LABS: Add Manual Diff / Slide Review NO; Basophils Absolute Auto 0 /uL (0-100); Basophils Percent Auto 0.6 % (0-2); Eosinophils Absolute Auto 100 /uL (0-450); Eosinophils Percent Auto 1.8 % (2-4); Hematocrit 34.8 % (36-46); Hemoglobin 11.7 g/dL (12.0-16.0); Lymphocytes Absolute Auto 1100 /uL (1100-4500); Lymphocytes Percent Auto 20.7 % (25-40); Mean Corpuscular HGB Conc 33.6 % (30-36); Mean Corpuscular Hemoglobin 32.3 PG (26-34); Mean Corpuscular Volume 96.1 fL (80-100); Monocytes Absolute Auto 1000 /uL (0-900); Monocytes Percent Auto 19.7 % (3-14); Neutrophils Absolute Auto 3000 /uL (1500-7000); Neutrophils Percent Auto 57.2 % (50-75); Platelet Count 64 X10^3/uL (150-400); Red Blood Cell Count 3.62 X10^6/uL (4.0-5.2); Red Cell Distribution Width 14.9 % (11.6-14.8); White Blood Cell Count 5.2 X10^3/uL (4.5-11.0)
[2023-09-02 17:21] LABS: HEMOLYSIS < 15 (0-50); Iron 139 ug/dL (37-170)
[2023-09-02 17:27] LABS: Alanine Aminotransferase 62 IU/L (<35); Albumin 3.6 g/dL (3.5-5.0); Albumin Globulin Ratio 0.9 (1.0-2.8); Alkaline Phosphatase 83 U/L (38-126); Aspartate Aminotransferase 107 IU/L (14-36); BUN Creatinine Ratio 26.6 (6-22); Bilirubin Total 1.9 mg/dL (0.2-1.3); Blood Urea Nitrogen 17 mg/dL (7-17); Calcium 9.8 mg/dL (8.4-10.2); Carbon Dioxide 29 mmol/L (22-32); Chloride 100 mmol/L (98-107); Estimated Glomerular Filt Rate > 60 mL/min (>60); Glucose 76 mg/dL (80-110); HEMOLYSIS < 15 (0-50); Potassium 2.8 mmol/L (3.4-5.1); Sodium 140 mmol/L (137-145); Total Protein 7.6 g/dL (6.3-8.2)
[2023-09-02 17:33] LABS: Percent Iron Saturation 37 % (15-50); Total Iron Binding Capacity 373 ug/dL (265-497); Transferrin 301 mg/dL (206-381)
== END ==
PROVIDERS: Family Provider Nurse Practitioner; PCP Nurse Practitioner; Referring Provider Nurse Practitioner; Visit Provider Nurse Practitioner
DX: K64.8 Other hemorrhoids (principal); K92.2 Gastrointestinal hemorrhage, unspecified
CPT/HCPCS: 36415; 80053; 83540; 83550; 85025

== ENCOUNTER → 2023-10-20 14:44 | Outpatient (CLI) | payer OTHER, MEDICAID, SELFPAY ==
--- NOTE | 2023-10-20 14:45 | DI.MG.S_ITS ---
BILATERAL DIGITAL SCREENING MAMMOGRAM 3D/2D WITH CAD: 10/20/2023 CLINICAL: Routine screening. Family history of breast cancer. Comparison is made to exams dated: 03/06/2022 mammogram, 01/31/2021 mammogram, and 01/25/2020 mammogram - [facility]. Both breasts are heterogeneously dense, which may obscure small masses (category c / 51-75% glandular tissue). Current study was also evaluated with a Computer Aided Detection (CAD) system. No significant masses, calcifications, or other findings are seen in either breast. There has been no significant interval change. IMPRESSION: NEGATIVE There is no mammographic evidence of malignancy. A 1 year screening mammogram is recommended. Based on Tyrer-Cuzick model (a risk assessment model), the patient's lifetime risk is 23.2% and her 10 year risk is 10.9%. If a patient has an elevated risk, a more comprehensive evaluation should be considered and/or a referral to a genetic counselor. The [place] [employer], [employer], and NCCN Guidelines advise the consideration of Breast MRI as an adjunct to screening mammography in patients whose Lifetime risk to develop breast cancer is 20% or higher. This exam was interpreted at Station ID: [id number]. NOTE: For mammograms, a report in lay terms will be sent to the patient. Approximately 15% of breast malignancies will not be visualized mammographically. In the management of a palpable breast mass, a negative mammogram must not discourage biopsy of a clinically suspicious lesion. Electronically Signed By: Kingston turpin/shayan:10/21/2023 07:17:48 letter sent: Normal Exam ACR BI-RADS Category 1: Negative 3341F
== END ==
PROVIDERS: Family Provider Nurse Practitioner; PCP Nurse Practitioner; Referring Provider Nurse Practitioner; Visit Provider Nurse Practitioner
DX: Z12.31 Encounter for screening mammogram for malignant neoplasm of breast (principal); Z80.3 Family history of malignant neoplasm of breast; R92.333 Mammographic heterogeneous density, bilateral breasts
CPT/HCPCS: 77063; 77067

== ENCOUNTER → 2023-10-20 15:37 | Outpatient (CLI) | payer OTHER, MEDICAID, SELFPAY ==
[2023-10-20 17:20] LABS: Add Manual Diff / Slide Review NO; Basophils Absolute Auto 0 /uL (0-100); Basophils Percent Auto 0.8 % (0-2); Eosinophils Absolute Auto 100 /uL (0-450); Eosinophils Percent Auto 2.6 % (2-4); Hematocrit 32.8 % (36-46); Hemoglobin 10.9 g/dL (12.0-16.0); Lymphocytes Absolute Auto 700 /uL (1100-4500); Mean Corpuscular HGB Conc 33.4 % (30-36); Mean Corpuscular Volume 95.9 fL (80-100); Monocytes Absolute Auto 800 /uL (0-900); Neutrophils Absolute Auto 3300 /uL (1500-7000); Neutrophils Percent Auto 66.6 % (50-75); Platelet Count 57 X10^3/uL (150-400); Red Blood Cell Count 3.42 X10^6/uL (4.0-5.2); Red Cell Distribution Width 15.3 % (11.6-14.8)
[2023-10-20 18:45] LABS: Alanine Aminotransferase 63 IU/L (<35); Albumin 3.7 g/dL (3.5-5.0); Albumin Globulin Ratio 0.9 (1.0-2.8); Alkaline Phosphatase 99 U/L (38-126); Aspartate Aminotransferase 130 IU/L (14-36); BUN Creatinine Ratio 24.6 (6-22); Bilirubin Total 2.1 mg/dL (0.2-1.3); Blood Urea Nitrogen 16 mg/dL (7-17); Calcium 9.6 mg/dL (8.4-10.2); Carbon Dioxide 30 mmol/L (22-32); Chloride 102 mmol/L (98-107); Cholesterol 152 mg/dL (140-199); Estimated Glomerular Filt Rate > 60 mL/min (>60); Glucose 90 mg/dL (80-110); HDL Cholesterol 39 mg/dL (40-60); HEMOLYSIS < 15 (0-50); LDL Cholesterol Calculated 86 mg/dL (<100); Magnesium 1.4 mg/dL (1.6-2.3); Potassium 3.3 mmol/L (3.4-5.1); Sodium 136 mmol/L (137-145); Total Protein 7.7 g/dL (6.3-8.2); Triglycerides 134 mg/dL (35-150)
[2023-10-20 18:49] LABS: HEMOLYSIS < 15 (0-50)
[2023-10-20 19:26] LABS: Thyroid Stimulating Hormone 1.74 uIU/mL (0.47-4.68)
[2023-10-20 22:54] LABS: Iron 270 ug/dL (37-170)
[2023-10-20 23:06] LABS: Percent Iron Saturation 69 % (15-50); Total Iron Binding Capacity 392 ug/dL (265-497); Transferrin 291 mg/dL (206-381)
== END ==
PROVIDERS: Family Provider Nurse Practitioner; PCP Nurse Practitioner; Referring Provider Nurse Practitioner; Visit Provider Nurse Practitioner
DX: D68.9 Coagulation defect, unspecified (principal); D50.9 Iron deficiency anemia, unspecified; K72.90 Hepatic failure, unspecified without coma; E03.9 Hypothyroidism, unspecified; K74.60 Unspecified cirrhosis of liver; E83.42 Hypomagnesemia; E78.5 Hyperlipidemia, unspecified
CPT/HCPCS: 80053; 80061; 83540; 83550; 83735; 84443; 85025

== ENCOUNTER 2023-11-17 00:59 | Emergency (ER) | payer OTHER, MEDICAID, SELFPAY ==
[2023-11-17 01:03] VITALS: BP 115/62; PULSE 81; RESP 18; TEMP 36.8; O2SAT 96; BMI 22.3
--- NOTE | 2023-11-17 01:11 | ED.GENADULT ---
HPI - General Adult General Chief complaint: GI Bleed Stated complaint: rectal bleed Time Seen by Provider: 11/17/23 01:01 Source: patient Mode of arrival: EMS Limitations: no limitations History of Present Illness HPI narrative: Patient is a 63-year-old female. Has a known longstanding history of alcohol abuse, cirrhosis, internal hemorrhoids. Has been seen by the school psychometrist of the [facility] who stated that she was not a candidate for any sort of intervention of her GI bleeding because of her other issues with her liver and her alcohol use. She states it has been 6 months since she is drank any alcohol. She stated that she occasionally has rectal bleeding and has had that over the past couple days but she states that she can normally control this by relaxing and avoiding heavy activities. She states that today she drank alcohol. She was concerned by the alcohol use today and her history is with cirrhosis and her hemorrhoids which is what brought her into the emergency department this evening. She denied abdominal pain, chest pain, shortness of breath, urinary symptoms. Related Data Home Medications Medication Instructions Recorded Confirmed lactulose 10 gram/15 mL oral 15 - 30 ml PO DAILY PRN 10/16/22 10/22/23 solution constipation rifaximin 550 mg tablet (Xifaxan) 550 mg PO BID 06/16/23 10/22/23 Previous Rx's Medication Instructions Recorded clobetasol 0.05 % topical ointment 1 applic topical QAM AND QPM #30 10/20/22 grams levothyroxine 100 mcg capsule 100 mcg PO DAILY #90 caps 10/20/22 vit,calcium no.40-iron 1 tab PO DAILY #90 tabs 04/16/23 fum 27 mg iron-folate no.1 1 mg tablet spironolactone 50 mg tablet 50 mg PO DAILY #90 tabs 06/30/23 furosemide 20 mg tablet 40 mg (2 x 20 mg) PO QAM #60 tabs 10/07/23 liothyronine 5 mcg tablet 10 mcg (2 x 5 mcg) PO DAILY #180 10/14/23 tabs nadolol 20 mg tablet 30 mg (1.5 x 20 mg) PO DAILY #135 10/14/23 tabs magnesium oxide 500 mg PO DAILY #30 tabs 10/22/23 potassium chloride 20 mEq 20 meq PO BID #60 tabs 04/11/24 tablet,extended release(part/cryst) (Klor-Con M) pregabalin 75 mg capsule 75 mg PO TID #90 caps 10/22/23 lorazepam 1 mg tablet 1 mg PO DAILY PRN anxiety #90 tabs 10/26/23 Allergies Allergy/AdvReac Type Severity Reaction Status Date / Time doxepin AdvReac Intermediate ITCHING Uncoded 08/12/23 15:57 Review of Systems Review of Systems Narrative: See HPI Patient History Medical History Pancytopenia Thrombocytopenia Anemia due to blood loss, acute Bleeding internal hemorrhoids Pancreatic lesion (~04/18/23) Weakness of left upper extremity Stroke Anemia, macrocytic Anemia, blood loss Alcohol use disorder, severe, in early remission Hemorrhoids, internal Depression Shortness of breath Hypercalcemia Weight gain Ascites due to alcoholic cirrhosis SBO (small bowel obstruction) Pancreatitis GERD (gastroesophageal reflux disease) Intermittent palpitations (04/2019) History of blood transfusion (10/2015) Coagulation disorder (2012) Hypothyroidism Hypertension History of heavy periods (2014) Ovarian cyst (2012) Painful menstrual periods (2012) Measles Mumps Chicken pox Eczema (2014) Psoriasis (2014) PTSD (post-traumatic stress disorder) (1999) Anxiety EV (esophageal varices) (10/2015) Portal hypertensive gastropathy (05/2015) Nonalcoholic fatty liver disease GI bleeding (2015) Cirrhosis (2012) Cardiac arrhythmia History of alcohol abuse (12/27/15) Surgical History H/O bilateral oophorectomy History of appendectomy History of inguinal hernia repair History of cholecystectomy History of esophagogastroduodenoscopy (EGD) (05/2015) Status post laparoscopic supracervical hysterectomy (08/25/16) Status post hysteroscopy (06/17/11) Status post hernia repair Status post appendectomy History of esophagogastroduodenoscopy (EGD) (01/2009) Status post colonoscopy (01/2009) Family History Grandfather Heart disease [place] (myocardial infarction) Grandmother Alcoholism Father No problems noted. Mother No problems noted. Grandfather Heart disease Grandmother Colon cancer Brother No problems noted. Social History Smoking Status: Never smoker alcohol intake: current Smoking Status: Never smoker alcohol intake frequency: holidays/special occasions only Substance Use Type: does not use Exam Initial Vital Signs Initial Vital Signs: Vital Signs Temperature 98.2 F 11/17/23 01:03 Pulse Rate 81 11/17/23 01:03 Respiratory Rate 18 11/17/23 01:03 Blood Pressure 115/62 11/17/23 01:03 Pulse Oximetry 96 11/17/23 01:03 Oxygen Delivery Method Room Air 11/17/23 01:03 HENMT Head: normal to inspection and normocephalic Resp Effort & Inspection: normal respiratory effort Auscultation: clear to auscultation bilaterally Cardio Rate: regular rate Rhythm: regular rhythm GI Inspection: normal to inspection and non-distended Palpation: soft, No firm and No tender Neuro General: patient alert and patient awake Course Orders Ordered: ED Orders 11/17/23 01:00 Complete Blood Count AUTO DIFF Stat Comprehensive Metabolic Panel Stat Lipase Stat PTT Partial Thromboplastin Donis Stat Prothrombin Time INR Stat Vital Signs Vital signs: Vital Signs - 8 hr 11/17/23 01:03 Temperature 98.2 F Pulse Rate 81 Respiratory Rate 18 Blood Pressure 115/62 Pulse Oximetry 96 Oxygen Delivery Method Room Air Medical Decision Making Medical Records Medical records reviewed: Yes I reviewed the patient's medical records. Lab Data Lab results reviewed: Yes I reviewed the patient's lab results. 11/17/23 01:00 11/17/23 01:00 Labs: Lab Results 11/17/23 Range/Units 01:00 WBC 5.2 (4.5-11.0) X10^3/uL RBC 3.51 L (4.0-5.2) X10^6/uL Hgb 11.2 L (12.0-16.0) g/dL Hct 33.4 L (36-46) % MCV 95.1 (80-100) fL MCH 31.8 (26-34) PG MCHC 33.5 (30-36) % RDW 15.5 H (11.6-14.8) % Plt Count 68 L (150-400) X10^3/uL Neut % (Auto) 52.6 (50-75) % Lymph % (Auto) 31.2 (25-40) % [place] % (Auto) 12.2 (3-14) % Eos % (Auto) 3.0 (2-4) % Baso % (Auto) 1.0 (0-2) % Neut # (Auto) 2700 (1283-8536) /uL Lymph # (Auto) 1600 (5621-2341) /uL [place] # (Auto) 600 (0-900) /uL Eos # (Auto) 200 (0-450) /uL Baso # (Auto) 100 (0-100) /uL PT 15.6 H (9.4-12.5) SECONDS INR 1.4 H (0.9-1.3) APTT 40 H (25.1-36.5) SECONDS Sodium 141 (137-145) mmol/L Potassium 4.0 (3.4-5.1) mmol/L Chloride 109 H (98-107) mmol/L Carbon Dioxide 25 (22-32) mmol/L BUN 12 (7-17) mg/dL Creatinine 0.60 (0.52-1.04) mg/dL Estimated GFR > 60 (>60) mL/min BUN/Creatinine Ratio 20.0 (6-22) Glucose 99 (80-110) mg/dL Calcium 9.1 (8.4-10.2) mg/dL Total Bilirubin 0.9 (0.2-1.3) mg/dL AST 140 H (14-36) IU/L ALT 63 H (<35) IU/L Alkaline Phosphatase 119 (38-126) U/L Total Protein 7.8 (6.3-8.2) g/dL Albumin 3.8 (3.5-5.0) g/dL Globulin 4.0 (1.7-4.1) g/dL Albumin/Globulin Ratio 1.0 (1.0-2.8) Lipase 898 H (23-300) U/L MDM Narrative Medical decision making narrative: Patient declined the offer for help with detox from alcohol use. Her labs today are either baseline relatively unremarkable. There was no indication for blood transfusion. No indication for admission to the hospital. No indication for surgical consultation. Will discharge patient home with instructions to follow with her primary doctor. Recommended that she try to cut back on the amount of alcohol that she was drinking. She expressed understanding and agreement with plan. Discharge Plan Departure Patient Disposition: Home Clinical Impression: Alcohol intoxication, Internal hemorrhoid Instructions: Alcohol Use Disorder Activity Restrictions/Additional Instructions: Recommend that you consider cutting back on the amount that you are drinking. Keep all of your scheduled medical appointments. Contact your primary doctor for a follow-up. Return to the emergency department for new symptoms. Prescriptions: No Action levothyroxine 100 mcg capsule 100 mcg PO DAILY Qty: 90 3RF ,calc.[id number]-[id number] 1 27-1 mg tablet 1 tab PO DAILY Qty: 90 3RF Rx Instructions: Take 1 tab daily for anemia spironolactone 50 mg tablet 50 mg PO DAILY Qty: 90 3RF furosemide 20 mg tablet 40 mg PO QAM Qty: 60 3RF Rx Instructions: Take 1 extra tab of 20mg (total 40mg) daily liothyronine 5 mcg tablet 10 mcg PO DAILY Qty: 180 3RF nadolol 20 mg tablet 30 mg PO DAILY Qty: 135 3RF lorazepam 1 mg tablet 1 mg PO DAILY PRN (Reason: anxiety) Qty: 90 0RF lactulose 10 gram/15 mL solution 15 - 30 ml PO DAILY PRN (Reason: constipation) Patient Comments: Take 30mL daily if pt does not have 3 BMs per day Xifaxan 550 mg tablet 550 mg PO BID potassium chloride [Klor-Con M20] 20 mEq tablet,ER particles/crystals 20 meq PO BID Qty: 60 3RF magnesium oxide 500 mg magnesium tablet 500 mg PO DAILY Qty: 30 3RF pregabalin 75 mg capsule 75 mg PO TID Qty: 90 3RF clobetasol 0.05 % ointment 1 applic topical QAM AND QPM Qty: 30 3RF Rx Instructions: Apply to itchy leg twice per day x2 weeks total. Referrals: Divina Lopes ARNP [Primary Care Provider] - Stand Alone Forms: Patient Portal/API
[2023-11-17 01:31] LABS: Add Manual Diff / Slide Review NO; Basophils Absolute Auto 100 /uL (0-100); Eosinophils Absolute Auto 200 /uL (0-450); Hematocrit 33.4 % (36-46); Hemoglobin 11.2 g/dL (12.0-16.0); Lymphocytes Absolute Auto 1600 /uL (1100-4500); Lymphocytes Percent Auto 31.2 % (25-40); Mean Corpuscular HGB Conc 33.5 % (30-36); Mean Corpuscular Hemoglobin 31.8 PG (26-34); Mean Corpuscular Volume 95.1 fL (80-100); Monocytes Absolute Auto 600 /uL (0-900); Monocytes Percent Auto 12.2 % (3-14); Neutrophils Absolute Auto 2700 /uL (1500-7000); Neutrophils Percent Auto 52.6 % (50-75); Platelet Count 68 X10^3/uL (150-400); Red Blood Cell Count 3.51 X10^6/uL (4.0-5.2); Red Cell Distribution Width 15.5 % (11.6-14.8); White Blood Cell Count 5.2 X10^3/uL (4.5-11.0)
[2023-11-17 01:33] LABS: Alanine Aminotransferase 63 IU/L (<35); Albumin 3.8 g/dL (3.5-5.0); Alkaline Phosphatase 119 U/L (38-126); Aspartate Aminotransferase 140 IU/L (14-36); Bilirubin Total 0.9 mg/dL (0.2-1.3); Blood Urea Nitrogen 12 mg/dL (7-17); Calcium 9.1 mg/dL (8.4-10.2); Carbon Dioxide 25 mmol/L (22-32); Chloride 109 mmol/L (98-107); Estimated Glomerular Filt Rate > 60 mL/min (>60); Glucose 99 mg/dL (80-110); HEMOLYSIS < 15 (0-50); Lipase 898 U/L (23-300); Sodium 141 mmol/L (137-145); Total Protein 7.8 g/dL (6.3-8.2)
[2023-11-17 01:34] LABS: INR 1.4 (0.9-1.3); Prothrombin Time 15.6 SECONDS (9.4-12.5)
[2023-11-17 01:37] LABS: PTT Partial Thromboplastin Tim 40 SECONDS (25.1-36.5)
== END 2023-11-17 02:37 | disposition home or self-care (01) ==
PROVIDERS: Emergency Provider Emergency Medicine; Family Provider Nurse Practitioner; PCP Nurse Practitioner
DX: F10.129 Alcohol abuse with intoxication, unspecified (principal); K64.8 Other hemorrhoids
CPT/HCPCS: 36415; 80053; 83690; 85025; 85610; 85730; 99283

== ENCOUNTER → 2023-12-03 12:12 | Outpatient (CLI) | payer OTHER, MEDICAID, SELFPAY ==
[2023-12-03 12:51] LABS: Add Manual Diff / Slide Review NO; Basophils Absolute Auto 100 /uL (0-100); Basophils Percent Auto 1.3 % (0-2); Eosinophils Absolute Auto 100 /uL (0-450); Eosinophils Percent Auto 2.2 % (2-4); Hematocrit 28.3 % (36-46); Hemoglobin 9.4 g/dL (12.0-16.0); Lymphocytes Absolute Auto 1100 /uL (1100-4500); Lymphocytes Percent Auto 18.5 % (25-40); Mean Corpuscular HGB Conc 33.3 % (30-36); Mean Corpuscular Hemoglobin 31.5 PG (26-34); Mean Corpuscular Volume 94.6 fL (80-100); Monocytes Absolute Auto 700 /uL (0-900); Monocytes Percent Auto 12.5 % (3-14); Neutrophils Absolute Auto 3800 /uL (1500-7000); Neutrophils Percent Auto 65.5 % (50-75); Platelet Count 113 X10^3/uL (150-400); Red Blood Cell Count 2.99 X10^6/uL (4.0-5.2); Red Cell Distribution Width 14.7 % (11.6-14.8); White Blood Cell Count 5.7 X10^3/uL (4.5-11.0)
[2023-12-03 13:04] LABS: Chloride 108 mmol/L (98-107); HEMOLYSIS < 15 (0-50)
[2023-12-03 13:07] LABS: Calcium 8.8 mg/dL (8.4-10.2); Carbon Dioxide 24 mmol/L (22-32); Glucose 153 mg/dL (80-110); Potassium 3.3 mmol/L (3.4-5.1); Sodium 138 mmol/L (137-145)
[2023-12-03 13:09] LABS: Blood Urea Nitrogen 15 mg/dL (7-17); Estimated Glomerular Filt Rate > 60 mL/min (>60)
[2023-12-04 03:31] LABS: Free T3, Triiodothyronine Free 4.83 pg/mL (2.77-5.27); Free T4, Direct Thyroxine 1.33 ng/dL (0.78-2.19)
== END ==
PROVIDERS: Internal Medicine Endocrinology, Diabetes & Metabolism; Family Provider Nurse Practitioner; PCP Nurse Practitioner; Referring Provider Nurse Practitioner; Visit Provider Nurse Practitioner
DX: E03.9 Hypothyroidism, unspecified (principal); K62.5 Hemorrhage of anus and rectum; K92.2 Gastrointestinal hemorrhage, unspecified
CPT/HCPCS: 36415; 80048; 84439; 84443; 84481; 85025

== ENCOUNTER 2023-12-03 15:49 | Emergency (ER) | payer OTHER, MEDICAID, SELFPAY ==
[2023-12-03 16:39] VITALS: BP 121/69; PULSE 74; RESP 16; TEMP 37; O2SAT 98; BMI 22.3
[2023-12-03 17:13] LABS: INR 1.6 (0.9-1.3)
[2023-12-03 17:16] LABS: PTT Partial Thromboplastin Tim 37 SECONDS (25.1-36.5)
[2023-12-03 17:20] LABS: Alanine Aminotransferase 66 IU/L (<35); Albumin 3.6 g/dL (3.5-5.0); Alkaline Phosphatase 83 U/L (38-126); Aspartate Aminotransferase 137 IU/L (14-36); BUN Creatinine Ratio 22.4 (6-22); Blood Urea Nitrogen 15 mg/dL (7-17); Carbon Dioxide 22 mmol/L (22-32); Chloride 110 mmol/L (98-107); Estimated Glomerular Filt Rate > 60 mL/min (>60); Globulin 3.5 g/dL (1.7-4.1); Glucose 110 mg/dL (80-110); Potassium 3.8 mmol/L (3.4-5.1); Sodium 139 mmol/L (137-145); Total Protein 7.1 g/dL (6.3-8.2)
[2023-12-03 17:22] LABS: HEMOLYSIS 63 (0-50)
[2023-12-03 17:31] LABS: Add Manual Diff / Slide Review NO; Basophils Absolute Auto 0 /uL (0-100); Basophils Percent Auto 0.9 % (0-2); Eosinophils Absolute Auto 100 /uL (0-450); Eosinophils Percent Auto 1.1 % (2-4); Hematocrit 28.5 % (36-46); Hemoglobin 9.6 g/dL (12.0-16.0); Lymphocytes Absolute Auto 800 /uL (1100-4500); Lymphocytes Percent Auto 14.9 % (25-40); Mean Corpuscular HGB Conc 33.6 % (30-36); Mean Corpuscular Hemoglobin 31.9 PG (26-34); Monocytes Absolute Auto 600 /uL (0-900); Neutrophils Absolute Auto 4100 /uL (1500-7000); Neutrophils Percent Auto 72.1 % (50-75); Platelet Count 121 X10^3/uL (150-400); Red Cell Distribution Width 14.5 % (11.6-14.8); White Blood Cell Count 5.6 X10^3/uL (4.5-11.0)
[2023-12-03] MEDS: PANTOPRAZOLE 40 MG VIAL 80 MG IV (17:54)
[2023-12-03] MEDS: ONDANSETRON 4 MG/2 ML INJ IV (17:55)
[2023-12-03 17:59] VITALS: PULSE 72; RESP 35; O2SAT 96
[2023-12-03 18:00] VITALS: BP 109/71; PULSE 71; RESP 26; O2SAT 97
[2023-12-03 18:08] VITALS: BP 104/80; PULSE 71; RESP 17; O2SAT 97
--- NOTE | 2023-12-03 18:23 | ED.GIBLEED ---
HPI - GI Bleed General Chief complaint: GI Bleed Stated complaint: Blood test issues, Physician ref Time Seen by Provider: 12/03/23 17:56 Source: patient Mode of arrival: Ambulatory History of Present Illness HPI Narrative: Patient is a 63-year-old female. Known history alcohol abuse. Also has a history of varices and internal hemorrhoids. She has been seen by GI and also hepatology at the [facility]. Had labs drawn today by her primary doctor and was noticed that her blood counts were lower than with the happened in the past she was sent to the emergency department. She was having some bleeding per rectum. She was somewhat lightheaded. She was told by the GI doctors at the [place] that they were not going to do any interventions until she reached the threshold where she required blood transfusion. Related Data Home Medications Medication Instructions Recorded Confirmed lactulose 10 gram/15 mL oral 15 - 30 ml PO DAILY PRN 10/16/22 11/25/23 solution constipation rifaximin 550 mg tablet (Xifaxan) 550 mg PO BID 06/16/23 11/25/23 Previous Rx's Medication Instructions Recorded clobetasol 0.05 % topical ointment 1 applic topical QAM AND QPM #30 10/20/22 grams levothyroxine 100 mcg capsule 100 mcg PO DAILY #90 caps 10/20/22 vit,calcium no.40-iron 1 tab PO DAILY #90 tabs 04/16/23 fum 27 mg iron-folate no.1 1 mg tablet spironolactone 50 mg tablet 50 mg PO DAILY #90 tabs 06/30/23 furosemide 20 mg tablet 40 mg (2 x 20 mg) PO QAM #60 tabs 10/07/23 liothyronine 5 mcg tablet 10 mcg (2 x 5 mcg) PO DAILY #180 10/14/23 tabs nadolol 20 mg tablet 30 mg (1.5 x 20 mg) PO DAILY #135 10/14/23 tabs magnesium oxide 500 mg PO DAILY #30 tabs 10/22/23 potassium chloride 20 mEq 20 meq PO BID #60 tabs 10/22/23 tablet,extended release(part/cryst) (Klor-Con M) pregabalin 75 mg capsule 75 mg PO TID #90 caps 10/22/23 lorazepam 1 mg tablet 1 mg PO DAILY PRN anxiety #90 tabs 10/26/23 baclofen 20 mg tablet See Rx Instructions .Route 11/25/23 .COMPLEX #120 tabs hydromorphone 2 mg tablet 2 mg PO Q4-6H PRN pain #40 tabs 11/25/23 Allergies Allergy/AdvReac Type Severity Reaction Status Date / Time doxepin AdvReac Intermediate ITCHING Uncoded 08/12/23 15:57 Review of Systems Review of Systems Narrative: See HPI Patient History Medical History Pancytopenia Thrombocytopenia Anemia due to blood loss, acute Bleeding internal hemorrhoids Pancreatic lesion (~04/18/23) Weakness of left upper extremity Stroke Anemia, macrocytic Anemia, blood loss Alcohol use disorder, severe, in early remission Hemorrhoids, internal Depression Shortness of breath Hypercalcemia Weight gain Ascites due to alcoholic cirrhosis SBO (small bowel obstruction) Pancreatitis GERD (gastroesophageal reflux disease) Intermittent palpitations (04/2019) History of blood transfusion (10/2015) Coagulation disorder (2012) Hypothyroidism Hypertension History of heavy periods (2014) Ovarian cyst (2012) Painful menstrual periods (2012) Measles Mumps Chicken pox Eczema (2014) Psoriasis (2014) PTSD (post-traumatic stress disorder) (1999) Anxiety EV (esophageal varices) (10/2015) Portal hypertensive gastropathy (05/2015) Nonalcoholic fatty liver disease GI bleeding (2015) Cirrhosis (2012) Cardiac arrhythmia History of alcohol abuse (12/27/15) Surgical History H/O bilateral oophorectomy History of appendectomy History of inguinal hernia repair History of cholecystectomy History of esophagogastroduodenoscopy (EGD) (05/2015) Status post laparoscopic supracervical hysterectomy (08/25/16) Status post hysteroscopy (06/17/11) Status post hernia repair Status post appendectomy History of esophagogastroduodenoscopy (EGD) (01/2009) Status post colonoscopy (01/2009) Family History Grandfather Heart disease [place] (myocardial infarction) Grandmother Alcoholism Father No problems noted. Mother No problems noted. Grandfather Heart disease Grandmother Colon cancer Brother No problems noted. Social History (Reviewed 11/17/23 @ 01:53 by JESUS Sanders Smoking Status: Never smoker alcohol intake: current Smoking Status: Never smoker alcohol intake frequency: 3 or more drinks per day Alcohol type: wine Substance Use Type: does not use Exam Initial Vital Signs Initial Vital Signs: Vital Signs Temperature 98.6 F 12/03/23 16:39 Pulse Rate 74 12/03/23 16:39 Respiratory Rate 16 12/03/23 16:39 Blood Pressure 121/69 12/03/23 16:39 Pulse Oximetry 98 12/03/23 16:39 Oxygen Delivery Method Room Air 12/03/23 16:39 HENMT Head: normal to inspection and normocephalic Resp Effort & Inspection: normal respiratory effort Cardio Rate: regular rate Skin Other: No pallor Neuro General: patient alert and patient awake Course Orders Ordered: ED Orders 12/03/23 16:55 Complete Blood Count AUTO DIFF Stat Comprehensive Metabolic Panel Stat PTT Partial Thromboplastin Donis Stat Prothrombin Time INR Stat 12/03/23 17:01 EKG-12 Lead Stat Discontinued Medications Ondansetron HCl (Ondansetron 4 Mg/2 Ml Inj) 4 mg IV NOW PRN PRN Reason: Nausea And Vomiting Last Admin: 12/03/23 17:55 Dose: 4 mg Documented By: ASHELY Ondansetron HCl (Ondansetron 4 Mg Odt) 4 mg SL NOW PRN PRN Reason: Nausea And Vomiting Pantoprazole Sodium (Pantoprazole 40 Mg Vial) 80 mg IV NOW ONE Stop: 12/03/23 17:02 Last Admin: 12/03/23 17:54 Dose: 80 mg Documented By: ASHELY Vital Signs Vital signs: Vital Signs - 8 hr 12/03/23 16:39 12/03/23 17:59 12/03/23 18:00 Temperature 98.6 F Pulse Rate 74 72 71 Respiratory Rate 16 35 H 26 H Blood Pressure 121/69 Pulse Oximetry 98 96 97 Oxygen Delivery Method Room Air 12/03/23 18:00 12/03/23 18:08 12/03/23 18:08 Temperature Pulse Rate 71 Respiratory Rate 17 Blood Pressure 109/71 104/80 Pulse Oximetry 97 Oxygen Delivery Method 12/03/23 18:30 Temperature Pulse Rate 70 Respiratory Rate 37 H Blood Pressure 100/90 Pulse Oximetry 97 Oxygen Delivery Method MDM - GI Bleed Lab Data 12/03/23 16:55 12/03/23 16:55 Labs: Lab Results 12/03/23 Range/Units 16:55 WBC 5.6 (4.5-11.0) X10^3/uL RBC 3.00 L (4.0-5.2) X10^6/uL Hgb 9.6 L (12.0-16.0) g/dL Hct 28.5 L (36-46) % MCV 95.0 (80-100) fL MCH 31.9 (26-34) PG MCHC 33.6 (30-36) % RDW 14.5 (11.6-14.8) % Plt Count 121 L (150-400) X10^3/uL Neut % (Auto) 72.1 (50-75) % Lymph % (Auto) 14.9 L (25-40) % [place] % (Auto) 11.0 (3-14) % Eos % (Auto) 1.1 L (2-4) % Baso % (Auto) 0.9 (0-2) % Neut # (Auto) 4100 (7381-2716) /uL Lymph # (Auto) 800 L (8366-8621) /uL [place] # (Auto) 600 (0-900) /uL Eos # (Auto) 100 (0-450) /uL Baso # (Auto) 0 (0-100) /uL PT 18.0 H (9.4-12.5) SECONDS INR 1.6 H (0.9-1.3) APTT 37 H (25.1-36.5) SECONDS Sodium 139 (137-145) mmol/L Potassium 3.8 (3.4-5.1) mmol/L Chloride 110 H (98-107) mmol/L Carbon Dioxide 22 (22-32) mmol/L BUN 15 (7-17) mg/dL Creatinine 0.67 (0.52-1.04) mg/dL Estimated GFR > 60 (>60) mL/min BUN/Creatinine Ratio 22.4 H (6-22) Glucose 110 (80-110) mg/dL Calcium 9.0 (8.4-10.2) mg/dL Total Bilirubin 2.0 H (0.2-1.3) mg/dL AST 137 H (14-36) IU/L ALT 66 H (<35) IU/L Alkaline Phosphatase 83 (38-126) U/L Total Protein 7.1 (6.3-8.2) g/dL Albumin 3.6 (3.5-5.0) g/dL Globulin 3.5 (1.7-4.1) g/dL Albumin/Globulin Ratio 1.0 (1.0-2.8) MDM Narrative Medical decision making narrative: Patient is not tachycardic. Not hypotensive. Is not pale. Is anemic but has not an appointment require blood transfusion. Discuss this with the patient. No emergent intervention needed although we did discuss the possibility of continued bleeding and that if her symptoms worsen she should return to the emergency department for further evaluation. Patient expressed understanding agreement with plan. Advised that she contact her primary doctor tomorrow for follow-up. Discharge Plan Departure Patient Disposition: Home Clinical Impression: Anemia Instructions: Anemia Activity Restrictions/Additional Instructions: I recommend that tomorrow you contact your primary care doctor for a follow-up. Your blood counts today are not at a level that would require a blood transfusion. I highly recommend that you continue to abstain from alcohol. Return to the emergency department for new symptoms. Prescriptions: No Action levothyroxine 100 mcg capsule 100 mcg PO DAILY Qty: 90 3RF ,[id number] 1 27-1 mg tablet 1 tab PO DAILY Qty: 90 3RF Rx Instructions: Take 1 tab daily for anemia spironolactone 50 mg tablet 50 mg PO DAILY Qty: 90 3RF furosemide 20 mg tablet 40 mg PO QAM Qty: 60 3RF Rx Instructions: Take 1 extra tab of 20mg (total 40mg) daily liothyronine 5 mcg tablet 10 mcg PO DAILY Qty: 180 3RF nadolol 20 mg tablet 30 mg PO DAILY Qty: 135 3RF lorazepam 1 mg tablet 1 mg PO DAILY PRN (Reason: anxiety) Qty: 90 0RF lactulose 10 gram/15 mL solution 15 - 30 ml PO DAILY PRN (Reason: constipation) Patient Comments: Take 30mL daily if pt does not have 3 BMs per day Xifaxan 550 mg tablet 550 mg PO BID potassium chloride [Klor-Con M20] 20 mEq tablet,ER particles/crystals 20 meq PO BID Qty: 60 3RF magnesium oxide 500 mg magnesium tablet 500 mg PO DAILY Qty: 30 3RF pregabalin 75 mg capsule 75 mg PO TID Qty: 90 3RF clobetasol 0.05 % ointment 1 applic topical QAM AND QPM Qty: 30 3RF Rx Instructions: Apply to itchy leg twice per day x2 weeks total. baclofen 20 mg tablet See Rx Instructions .ROUTE .COMPLEX Qty: 120 1RF Rx Instructions: Take 1/2 to 1 tab 4x/day as needed for muscle spasms; hydromorphone 2 mg tablet 2 mg PO Q4-6H PRN (Reason: pain) Qty: 40 0RF Referrals: Divina Lopes ARNP [Primary Care Provider] - Stand Alone Forms: Patient Portal/API
[2023-12-03 18:30] VITALS: BP 100/90; PULSE 70; RESP 37; O2SAT 97
== END 2023-12-03 18:33 | disposition home or self-care (01) ==
PROVIDERS: Emergency Medicine; Emergency Provider Emergency Medicine; Family Provider Nurse Practitioner; PCP Nurse Practitioner
DX: D64.9 Anemia, unspecified (principal)
CPT/HCPCS: 36415; 80048; 80053; 84439; 84443; 84481; 85025; 85610; 85730; 96374; 96375; 99283; 99284; C9113; J2405

== ENCOUNTER → 2023-12-23 09:54 | Outpatient (CLI) | payer OTHER, MEDICAID, SELFPAY ==
[2023-12-23 11:22] LABS: Add Manual Diff / Slide Review NO; Basophils Absolute Auto 0 /uL (0-100); Basophils Percent Auto 0.4 % (0-2); Eosinophils Absolute Auto 100 /uL (0-450); Eosinophils Percent Auto 2.4 % (2-4); Hemoglobin 7.8 g/dL (12.0-16.0); Lymphocytes Absolute Auto 700 /uL (1100-4500); Lymphocytes Percent Auto 14.9 % (25-40); Mean Corpuscular HGB Conc 32.7 % (30-36); Mean Corpuscular Hemoglobin 27.7 PG (26-34); Mean Corpuscular Volume 84.7 fL (80-100); Monocytes Absolute Auto 600 /uL (0-900); Monocytes Percent Auto 11.5 % (3-14); Neutrophils Absolute Auto 3500 /uL (1500-7000); Neutrophils Percent Auto 70.8 % (50-75); Platelet Count 104 X10^3/uL (150-400); Red Blood Cell Count 2.83 X10^6/uL (4.0-5.2); Red Cell Distribution Width 16.4 % (11.6-14.8)
[2023-12-23 11:33] LABS: INR 1.5 (0.9-1.3); Prothrombin Time 16.8 SECONDS (9.4-12.5)
[2023-12-23 11:39] LABS: Alanine Aminotransferase 34 IU/L (<35); Albumin 3.3 g/dL (3.5-5.0); Albumin Globulin Ratio 0.9 (1.0-2.8); Alkaline Phosphatase 85 U/L (38-126); Aspartate Aminotransferase 75 IU/L (14-36); BUN Creatinine Ratio 17.9 (6-22); Bilirubin Total 1.2 mg/dL (0.2-1.3); Blood Urea Nitrogen 12 mg/dL (7-17); Calcium 8.9 mg/dL (8.4-10.2); Carbon Dioxide 23 mmol/L (22-32); Chloride 109 mmol/L (98-107); Estimated Glomerular Filt Rate > 60 mL/min (>60); Globulin 3.5 g/dL (1.7-4.1); Glucose 136 mg/dL (80-110); HEMOLYSIS < 15 (0-50); Potassium 3.3 mmol/L (3.4-5.1); Sodium 138 mmol/L (137-145); Total Protein 6.8 g/dL (6.3-8.2)
[2023-12-24 07:36] LABS: Alpha Fetoprotein 5.3 ng/mL (0.0-9.2)
== END ==
PROVIDERS: Family Provider Nurse Practitioner; PCP Nurse Practitioner; Referring Provider Internal Medicine Gastroenterology; Visit Provider Internal Medicine Gastroenterology
DX: Z12.89 Encounter for screening for malignant neoplasm of other sites (principal); F10.10 Alcohol abuse, uncomplicated; K70.30 Alcoholic cirrhosis of liver without ascites
CPT/HCPCS: 36415; 80053; 82105; 85025; 85610

== ENCOUNTER 2023-12-31 13:17 | Observation (INO) | payer OTHER, MEDICAID, SELFPAY ==
[2023-12-31] VITALS (25 sets, daily range): BP systolic 103–147; BP diastolic 59–91; PULSE 60–85; RESP 12–40; TEMP 36.6; O2SAT 96–100; BMI 22.3
--- NOTE | 2023-12-31 17:20 | PC.NURSE ---
back pain for several days. unknown if injury occurred. pt thinks that weed wacking may have hurt her back. pt unable to sit still. Pt states that she sees flashes before her spasms.
[2023-12-31 17:24] LABS: Add Manual Diff / Slide Review NO; Basophils Absolute Auto 0 /uL (0-100); Basophils Percent Auto 0.8 % (0-2); Eosinophils Absolute Auto 200 /uL (0-450); Eosinophils Percent Auto 3.5 % (2-4); Hematocrit 24.1 % (36-46); Hemoglobin 7.6 g/dL (12.0-16.0); Lymphocytes Absolute Auto 1200 /uL (1100-4500); Lymphocytes Percent Auto 25.9 % (25-40); Mean Corpuscular HGB Conc 31.6 % (30-36); Mean Corpuscular Hemoglobin 26.3 PG (26-34); Monocytes Absolute Auto 600 /uL (0-900); Monocytes Percent Auto 13.7 % (3-14); Neutrophils Absolute Auto 2700 /uL (1500-7000); Neutrophils Percent Auto 56.1 % (50-75); Platelet Count 129 X10^3/uL (150-400); Red Blood Cell Count 2.91 X10^6/uL (4.0-5.2); White Blood Cell Count 4.7 X10^3/uL (4.5-11.0)
[2023-12-31 17:33] LABS: Alanine Aminotransferase 46 IU/L (<35); Albumin 3.6 g/dL (3.5-5.0); Albumin Globulin Ratio 0.9 (1.0-2.8); Alkaline Phosphatase 94 U/L (38-126); Ammonia (NH3) < 9 umol/L (9-30); Aspartate Aminotransferase 92 IU/L (14-36); BUN Creatinine Ratio 18.3 (6-22); Bilirubin Total 1.3 mg/dL (0.2-1.3); Blood Urea Nitrogen 23 mg/dL (7-17); Calcium 9.8 mg/dL (8.4-10.2); Carbon Dioxide 22 mmol/L (22-32); Chloride 114 mmol/L (98-107); Estimated Glomerular Filt Rate 48 mL/min (>60); Globulin 4.1 g/dL (1.7-4.1); Glucose 80 mg/dL (80-110); HEMOLYSIS < 15 (0-50); Lipase 723 U/L (23-300); Sodium 143 mmol/L (137-145); Total Protein 7.7 g/dL (6.3-8.2)
--- NOTE | 2023-12-31 19:02 | ED.BACK ---
HPI - Back Pain/Injury General Chief Complaint: Back Pain/Injury Stated Complaint: general / severe pain with neurological issue Time Seen by Provider: 12/31/23 17:01 Source: patient, RN notes reviewed and old records reviewed Mode of arrival: Family Vehicle Limitations: no limitations History of Present Illness HPI Narrative: 63-year-old female with a history of known alcohol abuse, history of varices and internal hemorrhoids who follows with [facility]. Patient states she stopped her baclofen Ingrid, because of side effects twitching. She states she has been having increasing side effects but different. She is still has a lot of movement in twitching sensation. She states she also ran out of oral Dilaudid that was yesterday. She states her chronic pain on her left side had increased. She does note she has not had any fevers chills cold cough or congestion. Denies any chest pain or shortness of breath. States she has had nausea and vomiting. States she has had chronic diarrhea because she is on lactulose. She has not noticed any acute changes to her bowel movements in the last several days. She states she does sometimes have bright red stools because she has hemorrhoids. She also has known varices. She states she has had blood transfusions in the past. Patient states she has not allergy doxepin for itching. Denies any recent tobacco, states she has had issues with binge drinking in the past. Last episode was 3 months ago. She states she has been sober since then. Denies any recreational drugs. Divina Lopes is her primary care physician. Related Data Home Medications Medication Instructions Recorded Confirmed lactulose 10 gram/15 mL oral 15 - 30 ml PO DAILY PRN 10/16/22 11/25/23 solution constipation rifaximin 550 mg tablet (Xifaxan) 550 mg PO BID 06/16/23 11/25/23 Previous Rx's Medication Instructions Recorded clobetasol 0.05 % topical ointment 1 applic topical QAM AND QPM #30 10/20/22 grams levothyroxine 100 mcg capsule 100 mcg PO DAILY #90 caps 10/20/22 vit,calcium no.40-iron 1 tab PO DAILY #90 tabs 04/16/23 fum 27 mg iron-folate no.1 1 mg tablet spironolactone 50 mg tablet 50 mg PO DAILY #90 tabs 06/30/23 furosemide 20 mg tablet 40 mg (2 x 20 mg) PO QAM #60 tabs 10/07/23 liothyronine 5 mcg tablet 10 mcg (2 x 5 mcg) PO DAILY #180 10/14/23 tabs nadolol 20 mg tablet 30 mg (1.5 x 20 mg) PO DAILY #135 10/14/23 tabs magnesium oxide 500 mg PO DAILY #30 tabs 10/22/23 potassium chloride 20 mEq 20 meq PO BID #60 tabs 10/22/23 tablet,extended release(part/cryst) (Klor-Con M) pregabalin 75 mg capsule 75 mg PO TID #90 caps 10/22/23 lorazepam 1 mg tablet 1 mg PO DAILY PRN anxiety #90 tabs 10/26/23 baclofen 20 mg tablet See Rx Instructions .Route 11/25/23 .COMPLEX #120 tabs hydromorphone 2 mg tablet 2 mg PO Q4-6H PRN pain #40 tabs 11/25/23 Allergies Allergy/AdvReac Type Severity Reaction Status Date / Time doxepin AdvReac Intermediate ITCHING Uncoded 12/31/23 13:32 Review of Systems Review of Systems ROS Unobtainable: All systems reviewed & are unremarkable except as noted in HPI and below Patient History Medical History (Updated 01/01/24 @ 05:46 by Jaya Sutton MD) Back pain Alcoholic cirrhosis GERD (gastroesophageal reflux disease) Pancytopenia Thrombocytopenia Anemia due to blood loss, acute Bleeding internal hemorrhoids Pancreatic lesion (~04/18/23) Weakness of left upper extremity Stroke Anemia, macrocytic Anemia, blood loss Alcohol use disorder, severe, in early remission Hemorrhoids, internal Depression Shortness of breath Hypercalcemia Weight gain Ascites due to alcoholic cirrhosis SBO (small bowel obstruction) Pancreatitis Intermittent palpitations (04/2019) History of blood transfusion (10/2015) Coagulation disorder (2012) Hypothyroidism Hypertension History of heavy periods (2014) Ovarian cyst (2012) Painful menstrual periods (2012) Measles Mumps Chicken pox Eczema (2014) Psoriasis (2014) PTSD (post-traumatic stress disorder) (1999) Anxiety EV (esophageal varices) (10/2015) Portal hypertensive gastropathy (05/2015) Nonalcoholic fatty liver disease GI bleeding (2015) Cirrhosis (2012) Cardiac arrhythmia History of alcohol abuse (12/27/15) Surgical History H/O bilateral oophorectomy History of appendectomy History of inguinal hernia repair History of cholecystectomy History of esophagogastroduodenoscopy (EGD) (05/2015) Status post laparoscopic supracervical hysterectomy (08/25/16) Status post hysteroscopy (06/17/11) Status post hernia repair Status post appendectomy History of esophagogastroduodenoscopy (EGD) (01/2009) Status post colonoscopy (01/2009) Family History Grandfather Heart disease NM (myocardial infarction) Grandmother Alcoholism Father No problems noted. Mother No problems noted. Grandfather Heart disease Grandmother Colon cancer Brother No problems noted. Social History Smoking Status: Never smoker alcohol intake: current Smoking Status: Never smoker alcohol intake frequency: 3 or more drinks per day Alcohol type: wine Substance Use Type: does not use Exam Narrative Exam Narrative: GENERAL: Alert and oriented x three, female in mild distress. HEENT: Head normocephalic, atraumatic, EOMI, pupils reactive, face symmetric, moist mucous membranes NECK: Supple, full range of motion CARDIOVASCULAR: Regular rate and rhythm without murmurs, rubs or gallops. Nontender palpation of the chest. RESPIRATORY: Breath sounds equal bilaterally, no wheezes rales or rhonchi. No tachypnea accessory muscle use. ABDOMEN: Soft, nontender. Slightly distended. No fluid wave. Normoactive bowel sounds all 4 quadrants. No guarding or rebound, rigidity, no mass : No CVA tenderness EXTREMITIES: Normal range of motion, no clubbing or edema. Neurovascularly intact NEUROLOGICAL: Cranial nerves II through XII grossly intact. Moving all extremities, patient has a undulating motions but they stop when she is focused in discussion. SKIN: Warm, dry, no petechiae, no rashes or lesions. Initial Vital Signs Initial Vital Signs: Vital Signs Temperature 98 F 12/31/23 13:25 Pulse Rate 75 12/31/23 13:25 Respiratory Rate 12 12/31/23 13:25 Blood Pressure 117/64 12/31/23 13:25 Pulse Oximetry 98 12/31/23 13:25 Oxygen Delivery Method Room Air 12/31/23 13:25 Course Orders Ordered: ED Orders 12/31/23 21:32 ETOH [Ethanol (ETOH)] Stat 12/31/23 22:17 CT head/brain wo con Stat 12/31/23 23:30 Urine Drug Screen, Rapid Stat Urine Microscopic Stat Acetaminophen (Acetaminophen 325 Mg Tablet) 650 mg PO Q6H PRN PRN Reason: Fever/Mild Pain (1-3) Baclofen (Baclofen 10 Mg Tablet) 5 mg PO TID AGNIESZKA Furosemide (Furosemide 20 Mg Tablet) 40 mg PO DAILY AGNIESZKA Hydromorphone HCl (Hydromorphone 2 Mg Tablet) 2 mg PO Q4H PRN PRN Reason: pain Lactulose (Lactulose 20 Gm/30 Ml Solution) 30 gm PO DAILY PRN PRN Reason: constipation Levothyroxine Sodium (Levothyroxine 100 Mcg Tablet) 100 mcg PO 0600 AGNIESZKA Liothyronine Sodium (Liothyronine 5 Mcg Tablet) 10 mcg PO DAILY AGNIESZKA Naloxone HCl (Naloxone 0.4 Mg/Ml Vial) 0.2 mg IV Q2MIN PRN PRN Reason: Opiate Reversal Non-Formulary Medication (Magnesium Oxide) 500 mg PO DAILY AGNIESZKA Non-Formulary Medication (Nadolol) 30 mg PO DAILY AGNIESZKA Ondansetron HCl (Ondansetron 4 Mg Odt) 4 mg PO Q8HR PRN PRN Reason: Nausea And Vomiting Potassium Chloride (Potassium Chloride 20 Meq Tab) 20 meq PO BID AGNIESZKA Pregabalin (Pregabalin 75 Mg Capsule) 75 mg PO TID AGNIESZKA Rifaximin (Rifaximin 200 Mg Tablet) 400 mg PO TID AGNIESZKA Spironolactone (Spironolactone 25 Mg Tablet) 50 mg PO DAILY AGNIESZKA Discontinued Medications Diazepam (Diazepam 5 Mg Tablet) 5 mg PO NOW ONE Stop: 12/31/23 19:19 Last Admin: 12/31/23 19:37 Dose: 5 mg Documented By: AJITH Hydromorphone HCl (Hydromorphone 1 Mg Inj) 1 mg IV NOW ONE Stop: 12/31/23 19:19 Last Admin: 12/31/23 19:37 Dose: 1 mg Documented By: AJITH Sodium Chloride (Normal Saline 0.9%) 1,000 mls @ 1,000 mls/hr IV BOLUS ONE Stop: 12/31/23 20:17 Last Infusion: 12/31/23 20:55 Dose: Infused Documented By: Admin: 12/31/23 19:38 Dose: 1,000 mls/hr Documented By: AJITH Sodium Chloride (Normal Saline 0.9%) 1,000 mls @ 1,000 mls/hr IV BOLUS ONE Stop: 01/01/24 04:11 Last Admin: 01/01/24 03:25 Dose: Not Given Documented By: AJITH Ondansetron HCl (Ondansetron 4 Mg/2 Ml Inj) 4 mg IV NOW ONE Stop: 12/31/23 19:19 Last Admin: 12/31/23 19:37 Dose: 4 mg Documented By: AJITH Vital Signs Vital signs: Vital Signs - 8 hr 12/31/23 17:00 12/31/23 17:30 12/31/23 17:30 Pulse Rate 71 68 Respiratory Rate 13 Blood Pressure 140/83 Pulse Oximetry 99 Oxygen Delivery Method 12/31/23 18:00 12/31/23 18:01 12/31/23 18:01 Pulse Rate 68 72 Respiratory Rate 18 Blood Pressure 110/66 Pulse Oximetry 100 99 Oxygen Delivery Method 12/31/23 18:30 12/31/23 18:31 12/31/23 19:00 Pulse Rate 74 85 Respiratory Rate Blood Pressure 132/62 Pulse Oximetry 100 99 Oxygen Delivery Method 12/31/23 19:00 12/31/23 19:39 Pulse Rate 70 75 Respiratory Rate 18 Blood Pressure 131/63 Pulse Oximetry 99 99 Oxygen Delivery Method Room Air MDM - Back Pain/Injury Lab Data 12/31/23 17:10 12/31/23 17:10 Labs: Lab Results 12/31/23 12/31/23 12/31/23 Range/Units 17:10 21:32 23:30 WBC 4.7 (4.5-11.0) X10^3/uL RBC 2.91 L (4.0-5.2) X10^6/uL Hgb 7.6 L (12.0-16.0) g/dL Hct 24.1 L (36-46) % MCV 83.0 (80-100) fL MCH 26.3 (26-34) PG MCHC 31.6 (30-36) % RDW 17.0 H (11.6-14.8) % Plt Count 129 L (150-400) X10^3/uL Neut % (Auto) 56.1 (50-75) % Lymph % (Auto) 25.9 (25-40) % [place] % (Auto) 13.7 (3-14) % Eos % (Auto) 3.5 (2-4) % Baso % (Auto) 0.8 (0-2) % Neut # (Auto) 2700 (1908-5913) /uL Lymph # (Auto) 1200 (8972-0576) /uL [place] # (Auto) 600 (0-900) /uL Eos # (Auto) 200 (0-450) /uL Baso # (Auto) 0 (0-100) /uL Sodium 143 (137-145) mmol/L Potassium 4.0 (3.4-5.1) mmol/L Chloride 114 H (98-107) mmol/L Carbon Dioxide 22 (22-32) mmol/L BUN 23 H (7-17) mg/dL Creatinine 1.26 H (0.52-1.04) mg/dL Estimated GFR 48 L (>60) mL/min BUN/Creatinine Ratio 18.3 (6-22) Glucose 80 (80-110) mg/dL Calcium 9.8 (8.4-10.2) mg/dL Total Bilirubin 1.3 (0.2-1.3) mg/dL AST 92 H (14-36) IU/L ALT 46 H (<35) IU/L Alkaline Phosphatase 94 (38-126) U/L Ammonia < 9 L (9-30) umol/L Total Protein 7.7 (6.3-8.2) g/dL Albumin 3.6 (3.5-5.0) g/dL Globulin 4.1 (1.7-4.1) g/dL Albumin/Globulin Ratio 0.9 L (1.0-2.8) Lipase 723 H (23-300) U/L Urine RBC 0-1/hpf (0-5/HPF) Urine WBC 1-5/hpf (0-5/HPF) Ur Squamous Epith Cells 1-5 /hpf (0-5/HPF) Ur Renal Epithelial Cell 1-5/hpf H (0-1/HPF) Urine Bacteria None seen (None) Hyaline Casts 0-1/lpf (None) Other Casts 0-1 Ur Culture Indicated? Cult not indicated Vol Urine Centrifuged 10ml (spun) U Opiates 300ng/mL cut Negative (Negative) Ur Oxycodone Screen Negative (Negative) Urine Methadone Screen Negative (Negative) Ur Barbiturates Screen Negative (Negative) U Tricyclic Antidepress Negative (Negative) Ur Phencyclidine Scrn Negative (Negative) Ur Amphetamines Screen Negative (Negative) U Methamphetamines Scrn Negative (Negative) Ur MDMA Scrn (Ecstasy) Negative (Negative) U Benzodiazepines Scrn Negative (Negative) Urine Cocaine Screen Negative (Negative) U Marijuana (THC) Screen Negative (Negative) Urine pH Normal (Normal) Urine Specific [place] Normal (Normal) Ethyl Alcohol < 10 ( - 10) mg/dL Ur Creatinine Normal (Normal) Urine Dip Bedside Urine Glucose Negative Bedside Urine Bilirubin - Negative Bedside Urine Ketone +/- 5 Urine Specific [place] 1.015 Bedside Urine Occult Blood +/- Bedside Urine pH 6.0 Bedside Urine Protein +/- 15 Bedside Urine Urobilinogen - Negative Bedside Urine Nitrite - Negative Bedside Urine Leukocytes - Negative Esterase Imaging Data CT scan - abdomen/pelvis: Radiologist's Impression: Close Abdomen/Pelvis CT (Signed) Kingston Eduardo - 12/31/23 Launch?[place] [address] CT Scan Report Signed Patient: Kristen Castle MR#: [id number] : 1960 Acct:[id number] Age/Sex: 63 / F Date of Service: 12/31/23 Loc: ED Accession Number: [id number] Procedure: CT abdomen pelvis w con Ordering Provider: Ruth Rodriguez D.O. PROCEDURE: CT ABDOMEN PELVIS W CON INDICATIONS: left abd pain, hx liver cirrhosis TECHNIQUE: After the administration of intravenous contrast, axial sections acquired from the lung bases to the pubic symphysis. Coronal and sagittal reformats were performed. For radiation dose reduction, the following was used: automated exposure control, adjustment of mA and/or kV according to patient size. COMPARISON: [facility], CT, CT ABDOMEN PELVIS W CON, 09/30/2022, 4:32. [facility], CT, CT ABDOMEN PELVIS W CON, 03/05/2022, 20:03. FINDINGS: Image quality: Diagnostic. Lower Chest: Lung bases appear clear. Small hiatal hernia. ABDOMEN: Liver: No solid mass. Stable subcentimeter hepatic hypodensity of the right hepatic lobe. Redemonstration nodular liver contour compatible with history of cirrhosis. Gallbladder: Status post cholecystectomy. Biliary ducts: No biliary dilation. Pancreas: Stable appearance of coarse calcifications involving the pancreatic head and unchanged appearance of relative ill-defined hypoattenuation of the pancreatic head and uncinate process region. No peripancreatic inflammation. No pancreatic ductal dilatation. Spleen: Size is within normal limits. Adrenal Glands: No adrenal nodules. Kidneys and Ureters: No hydronephrosis. No solid mass. No complex renal cystic lesion which requires follow up. Stomach and Bowel: Normal colonic caliber, without significant wall thickening. No acute inflammatory changes. Colonic diverticulosis without acute diverticulitis. Stable appearance of perirectal varices. Peritoneum: Scanned, small volume ascites. No free air. Ventral Wall: There is a fat-containing umbilical hernia without acute inflammation. Abdominal Nodes: No retroperitoneal or mesenteric adenopathy by size criteria. Vessels: Aorta and inferior vena cava are normal in size. PELVIS: Pelvic Organs: Unremarkable. Bladder: No bladder wall thickening, accounting for underdistention. Pelvic Nodes: No enlarged lymph nodes. Miscellaneous: No inguinal hernias are seen. Bones: No aggressive osseous abnormality. No acute vertebral body compression fractures. Multilevel spondylitic changes throughout the imaged spine. No suspicious osseous lesions. IMPRESSION: CT abdomen and pelvis without acute abnormalities to explain patient's symptoms. Stable appearance of cirrhotic liver without new intrahepatic lesions. Status post cholecystectomy. Stable appearance of the pancreas with heterogeneous hypoattenuation of the pancreatic head and uncinate region without associated pancreatic ductal dilatation. Multiple coarse calcifications also appears stable and likely sequela of chronic pancreatitis. Minimal peripancreatic stranding likely senescent. However, recommend correlation with laboratory evaluation to exclude possible acute pancreatitis. Other chronic findings as above. Dictated by: Kingston Eduardo M.D. on 12/31/2023 at 20:54 Approved by: Kingston Eduardo M.D. on 12/31/2023 at 21:01 MDM Narrative Medical decision making narrative: Show white count of 4.7 hemoglobin 7.6 was 7.8 in December, was in the 9 range in November, platelets are 129. Patient does have a bump in her creatinine with a creatinine of 1.26 sodium 143 potassium of 4 chloride 114 CO2 of 22 with a BUN 23, glucose is 80 LFTs are slightly up at 92 and 46 for AST ALT bilirubin is 1.3, lipase of 723. Ammonia is less than 9. Patient notes acute on chronic pain of the left lower abdomen. She recently stopped her baclofen because she was having side effects but has had persistent side effects although different had difficulty with sleeping. She also notes she stopped her oral Dilaudid recently as well. She is nontender on examination but states she has been having nausea and vomiting she has had a little bit of bright red blood per rectum on and off in the past but she states nothing recent. Patient was given fluids she appears to have an [place], CT abdomen pelvis changes consistent with prior pancreatitis versus acute, patient also has cirrhotic changes but no other acute changes noted. Patient was given dose of Dilaudid IV as well symptoms. Patient does seem confused ETOH was added on she has been high in the past is negative today. UA does not show any clear signs of infection UDS negative. Patient does appear altered on examination head CT was obtained in his negative. Patient reports multiple falls. She states this is new her father had brought her. Spoke with hospitalist about keeping her for observation to see if this is possibly secondary to stopping her recent medications versus other source. Spoke with Dr. Sutton who kindly accepts. Discharge Plan Departure Patient Disposition: Admitted as Observation Clinical Impression: Altered mental status Admit Date/Time: 01/01/24 00:49 Admit Provider: Jaya Gomez
--- NOTE | 2023-12-31 19:18 | DI.CT.S_ITS ---
PROCEDURE: CT ABDOMEN PELVIS W CON INDICATIONS: left abd pain, hx liver cirrhosis TECHNIQUE: After the administration of intravenous contrast, axial sections acquired from the lung bases to the pubic symphysis. Coronal and sagittal reformats were performed. For radiation dose reduction, the following was used: automated exposure control, adjustment of mA and/or kV according to patient size. COMPARISON: [facility], CT, CT ABDOMEN PELVIS W CON, 09/30/2022, 4:32. [facility], CT, CT ABDOMEN PELVIS W CON, 03/05/2022, 20:03. FINDINGS: Image quality: Diagnostic. Lower Chest: Lung bases appear clear. Small hiatal hernia. ABDOMEN: Liver: No solid mass. Stable subcentimeter hepatic hypodensity of the right hepatic lobe. Redemonstration nodular liver contour compatible with history of cirrhosis. Gallbladder: Status post cholecystectomy. Biliary ducts: No biliary dilation. Pancreas: Stable appearance of coarse calcifications involving the pancreatic head and unchanged appearance of relative ill-defined hypoattenuation of the pancreatic head and uncinate process region. No peripancreatic inflammation. No pancreatic ductal dilatation. Spleen: Size is within normal limits. Adrenal Glands: No adrenal nodules. Kidneys and Ureters: No hydronephrosis. No solid mass. No complex renal cystic lesion which requires follow up. Stomach and Bowel: Normal colonic caliber, without significant wall thickening. No acute inflammatory changes. Colonic diverticulosis without acute diverticulitis. Stable appearance of perirectal varices. Peritoneum: Scanned, small volume ascites. No free air. Ventral Wall: There is a fat-containing umbilical hernia without acute inflammation. Abdominal Nodes: No retroperitoneal or mesenteric adenopathy by size criteria. Vessels: Aorta and inferior vena cava are normal in size. PELVIS: Pelvic Organs: Unremarkable. Bladder: No bladder wall thickening, accounting for underdistention. Pelvic Nodes: No enlarged lymph nodes. Miscellaneous: No inguinal hernias are seen. Bones: No aggressive osseous abnormality. No acute vertebral body compression fractures. Multilevel spondylitic changes throughout the imaged spine. No suspicious osseous lesions. IMPRESSION: CT abdomen and pelvis without acute abnormalities to explain patient's symptoms. Stable appearance of cirrhotic liver without new intrahepatic lesions. Status post cholecystectomy. Stable appearance of the pancreas with heterogeneous hypoattenuation of the pancreatic head and uncinate region without associated pancreatic ductal dilatation. Multiple coarse calcifications also appears stable and likely sequela of chronic pancreatitis. Minimal peripancreatic stranding likely senescent. However, recommend correlation with laboratory evaluation to exclude possible acute pancreatitis. Other chronic findings as above. Dictated by: Kingston Eduardo M.D. on 12/31/2023 at 20:54 Approved by: Kingston Eduardo M.D. on 12/31/2023 at 21:01
[2023-12-31] MEDS: diazePAM 5 MG TABLET PO (19:37)
[2023-12-31] MEDS: ONDANSETRON 4 MG/2 ML INJ IV (19:37)
[2023-12-31] MEDS: HYDROMORPHONE 1 MG INJ IV (19:37)
[2023-12-31] MEDS: SODIUM CHLORIDE 0.9% 1,000 ML 1000 ML IV (19:38)
[2023-12-31 21:48] LABS: Ethanol (ETOH) < 10 mg/dL
--- NOTE | 2023-12-31 22:17 | DI.CT.S_ITS ---
PROCEDURE: CT HEAD/BRAIN WO CON INDICATIONS: confusion TECHNIQUE: Noncontrast 4.5 mm thick angled axial sections acquired from the foramen magnum to the vertex, with coronal and sagittal reformats. For radiation dose reduction, the following was used: automated exposure control, adjustment of mA and/or kV according to patient size. COMPARISON: [facility], CT, CT HEAD/BRAIN WO CON, 08/07/2023, 23:32. [facility], CT, CT HEAD/BRAIN WO CON, 11/03/2022, 16:57. FINDINGS: Image quality: Diagnostic. CSF spaces: Basal cisterns are patent. No extra-axial fluid collections. The ventricles are symmetric in size and shape. Brain: No intracranial bleeds or masses. There is cerebral volume loss for age, with resultant ventricular and sulcal prominence. There are periventricular and deep white matter chronic small vessel ischemic changes. There is intracranial internal carotid artery atherosclerosis. Skull and face: Calvarium and visualized facial bones appear intact, without suspicious lesions. Sinuses: Visualized sinuses and mastoids are clear. IMPRESSION: 1. CT head without acute intracranial abnormalities or acute calvarial fractures. 2. Age-related senescent changes and sequela of chronic small vessel ischemic disease. Dictated by: Kingston Eduardo M.D. on 12/31/2023 at 23:31 Approved by: Kingston Eduardo M.D. on 12/31/2023 at 23:33
[2023-12-31 23:42] LABS: Ur Creatinine Normal (Normal); Ur Specific Gravity Normal (Normal); Urine Amphetamines Negative (Negative); Urine Barbiturates Negative (Negative); Urine Benzodiazepines Negative (Negative); Urine Cocaine Negative (Negative); Urine MDMA Negative (Negative); Urine Methadone Negative (Negative); Urine Methamphetamines Negative (Negative); Urine Opiates Negative (Negative); Urine Oxycodone Negative (Negative); Urine Phencyclidine Negative (Negative); Urine THC Negative (Negative); Urine Tricyclic Antidepressant Negative (Negative); Urine pH Normal (Normal)
[2023-12-31 23:58] LABS: Urine Volume 10mL (spun)
[2023-12-31 23:59] LABS: Bacteria Urine None Seen; Hyaline Casts Urine 0-1/LPF; RBC Urine 0-1/HPF (0-5/HPF); Renal Epithelial Cells Urine 1-5/HPF (0-1/HPF); Squamous Epithelial Cell Urine 1-5 /HPF (0-5/HPF); WBC Urine 1-5/HPF (0-5/HPF)
[2024-01-01] VITALS (42 sets, daily range): BP systolic 81–138; BP diastolic 46–68; PULSE 62–81; RESP 12–29; TEMP 37; O2SAT 94–100; BMI 23.4
[2024-01-01 00:01] LABS: Other Casts Urine 0-1
[2024-01-01 00:02] LABS: Culture Indicated Urine Cult Not Indicated
--- NOTE | 2024-01-01 05:18 | PM.HP.1 ---
History of Present Illness History of Present Illness Date Patient Seen: 01/01/24 Time Patient Seen: 05:30 Chief complaint: general / severe pain with neurological issue Narrative: 64 y/o with PMH of alcoholic liver cirrhosis and portal HTN, esophageal varices, chronic anemia and upper GI bleed, chronic back pain requiring narcotic and muscle relaxant, who presented to ED confused, altered, after she had visual hallucinations, complaining on worsening back pain, 2 days after she stopped taking Baclofen due to twitching that she recognized to be a side effect and a day ago ran out of Dilaudid. ED workup negative for hyperammonemia, CTH unremarkable. Without leukocytosis. Worsening anemia likely with increased chronic or recurrent GI bleed. Lipase is elevated but she has no complaints on epigastric pain, nausea or vomiting. In the ED she was treated with Valium and Dilaudid. Placed in observation with likely Baclofen withdrawal. [facility] Medical History (Updated 01/01/24 @ 05:46 by Jaya Sutton MD) Back pain Alcoholic cirrhosis GERD (gastroesophageal reflux disease) Pancytopenia Thrombocytopenia Anemia due to blood loss, acute Bleeding internal hemorrhoids Pancreatic lesion (~04/18/23) Weakness of left upper extremity Stroke Anemia, macrocytic Anemia, blood loss Alcohol use disorder, severe, in early remission Hemorrhoids, internal Depression Shortness of breath Hypercalcemia Weight gain Ascites due to alcoholic cirrhosis SBO (small bowel obstruction) Pancreatitis Intermittent palpitations (04/2019) History of blood transfusion (10/2015) Coagulation disorder (2012) Hypothyroidism Hypertension History of heavy periods (2014) Ovarian cyst (2012) Painful menstrual periods (2012) Measles Mumps Chicken pox Eczema (2014) Psoriasis (2014) PTSD (post-traumatic stress disorder) (1999) Anxiety EV (esophageal varices) (10/2015) Portal hypertensive gastropathy (05/2015) Nonalcoholic fatty liver disease GI bleeding (2015) Cirrhosis (2012) Cardiac arrhythmia History of alcohol abuse (12/27/15) Surgical History H/O bilateral oophorectomy History of appendectomy History of inguinal hernia repair History of cholecystectomy History of esophagogastroduodenoscopy (EGD) (05/2015) Status post laparoscopic supracervical hysterectomy (08/25/16) Status post hysteroscopy (06/17/11) Status post hernia repair Status post appendectomy History of esophagogastroduodenoscopy (EGD) (01/2009) Status post colonoscopy (01/2009) Family History Grandfather Heart disease [place] (myocardial infarction) Grandmother Alcoholism Father No problems noted. Mother No problems noted. Grandfather Heart disease Grandmother Colon cancer Brother No problems noted. Social History Smoking Status: Never smoker alcohol intake: current Meds Home Medications and Allergies Home Medications Medication Instructions Recorded Confirmed Type lactulose 10 gram/15 mL oral 15 - 30 ml PO DAILY PRN 10/16/22 11/25/23 History solution constipation clobetasol 0.05 % topical ointment 1 applic topical QAM AND QPM #30 10/20/22 11/25/23 Rx grams levothyroxine 100 mcg capsule 100 mcg PO DAILY #90 caps 10/20/22 11/25/23 Rx vit,calcium no.40-iron 1 tab PO DAILY #90 tabs 04/16/23 11/25/23 Rx fum 27 mg iron-folate no.1 1 mg tablet rifaximin 550 mg tablet (Xifaxan) 550 mg PO BID 06/16/23 11/25/23 History spironolactone 50 mg tablet 50 mg PO DAILY #90 tabs 06/30/23 11/25/23 Rx furosemide 20 mg tablet 40 mg (2 x 20 mg) PO QAM #60 tabs 10/07/23 11/25/23 Rx liothyronine 5 mcg tablet 10 mcg (2 x 5 mcg) PO DAILY #180 10/14/23 11/25/23 Rx tabs nadolol 20 mg tablet 30 mg (1.5 x 20 mg) PO DAILY #135 10/14/23 11/25/23 Rx tabs magnesium oxide 500 mg PO DAILY #30 tabs 10/22/23 11/25/23 Rx potassium chloride 20 mEq 20 meq PO BID #60 tabs 10/22/23 11/25/23 Rx tablet,extended release(part/cryst) (Klor-Con M) pregabalin 75 mg capsule 75 mg PO TID #90 caps 10/22/23 11/25/23 Rx lorazepam 1 mg tablet 1 mg PO DAILY PRN anxiety #90 tabs 10/26/23 11/25/23 Rx baclofen 20 mg tablet See Rx Instructions .Route 11/25/23 11/25/23 Rx .COMPLEX #120 tabs hydromorphone 2 mg tablet 2 mg PO Q4-6H PRN pain #40 tabs 11/25/23 11/25/23 Rx Allergies Allergy/AdvReac Type Severity Reaction Status Date / Time doxepin AdvReac Intermediate ITCHING Uncoded 12/31/23 13:32 Review of Systems Review of Systems Narrative: Partial ROS at best, she is confused Cardiovascular Comments: w/o chest pain Respiratory Comments: w/o SOB Gastrointestinal Comments: chronic loose stool as on lactulose Neurologic Comments: chronic muscle spasms Exam Vital Signs (past 8 hours): Oxygen Delivery Method Room Air Const Other: sitting in bed in no distress HENMT Other: normocephalic Eyes Other: EOMI, w/o scleral icterus Neck Other: supple Resp Other: normal respiratory effort Cardio Other: RRR GI Other: mild distension Skin Other: w/o jaundice Neuro Other: muscle twitches, jerky movements of arm Extrem Other: w/o swelling Psych Other: cognitive deficits Objective Labs 12/31/23 17:10 12/31/23 17:10 Labs: Laboratory Results - last 24 hr 12/31/23 12/31/23 12/31/23 17:10 21:32 23:30 WBC 4.7 RBC 2.91 L Hgb 7.6 L Hct 24.1 L MCV 83.0 MCH 26.3 MCHC 31.6 RDW 17.0 H Plt Count 129 L Neut % (Auto) 56.1 Lymph % (Auto) 25.9 [place] % (Auto) 13.7 Eos % (Auto) 3.5 Baso % (Auto) 0.8 Neut # (Auto) 2700 Lymph # (Auto) 1200 [place] # (Auto) 600 Eos # (Auto) 200 Baso # (Auto) 0 Sodium 143 Potassium 4.0 Chloride 114 H Carbon Dioxide 22 BUN 23 H Creatinine 1.26 H Estimated GFR 48 L BUN/Creatinine Ratio 18.3 Glucose 80 Calcium 9.8 Total Bilirubin 1.3 AST 92 H ALT 46 H Alkaline Phosphatase 94 Ammonia < 9 L Total Protein 7.7 Albumin 3.6 Globulin 4.1 Albumin/Globulin Ratio 0.9 L Lipase 723 H Urine RBC 0-1/hpf Urine WBC 1-5/hpf Ur Squamous Epith Cells 1-5 /hpf Ur Renal Epithelial Cell 1-5/hpf H Urine Bacteria None seen Hyaline Casts 0-1/lpf Other Casts 0-1 Ur Culture Indicated? Cult not indicated Vol Urine Centrifuged 10ml (spun) U Opiates 300ng/mL cut Negative Ur Oxycodone Screen Negative Urine Methadone Screen Negative Ur Barbiturates Screen Negative U Tricyclic Antidepress Negative Ur Phencyclidine Scrn Negative Ur Amphetamines Screen Negative U Methamphetamines Scrn Negative Ur MDMA Scrn (Ecstasy) Negative U Benzodiazepines Scrn Negative Urine Cocaine Screen Negative U Marijuana (THC) Screen Negative Urine pH Normal Urine Specific [place] Normal Ethyl Alcohol < 10 Ur Creatinine Normal Assessment & Plan Assessment and plan (1) Altered mental status: Status: Acute (2) Back pain: Status: Acute (3) Depression: Qualifiers: Active/Remission status: in partial remission Depression Type: major depressive disorder Major depression recurrence: recurrent Qualified Code(s): F33.41 - Major depressive disorder, recurrent, in partial remission Status: Acute (4) Anxiety: Status: Chronic (5) Chronic pancreatitis due to chronic alcoholism: Status: Acute (6) Alcohol use disorder, severe, in early remission: Status: Acute (7) GI bleeding: Qualifiers: GI bleed type/associated pathology: unspecified gastrointestinal hemorrhage type Qualified Code(s): K92.2 - Gastrointestinal hemorrhage, unspecified Status: Acute (8) EV (esophageal varices): Problem details: Ruptured Qualifiers: Esophageal varices bleeding: with bleeding Esophageal varices type: secondary Qualified Code(s): I85.11 - Secondary esophageal varices with bleeding Status: Acute (9) Alcoholic cirrhosis: Status: Acute (10) Portal hypertensive gastropathy: Status: Acute (11) Hypothyroidism: Status: Acute (12) GERD (gastroesophageal reflux disease): Qualifiers: Esophagitis presence: esophagitis presence not specified Qualified Code(s): K21.9 - Gastro-esophageal reflux disease without esophagitis Status: Acute Assessment & Plan narrative: Altered Mental Status - extensive workup non-revealing, likely due to Baclofen Withdrawal - it is not clear how much was she taking, possibly 20 mg dose few times a day - restarting 5 mg dose tid Back Pain - on Dilaudid that she ran out form - pain management Alcoholism / Alcoholic Liver Cirrhosis / Hepatic Encephalopathy / Ascites - last binge 3 months ago, apparently - LFTs and electrolytes at baseline - compliant with MVI, lactulose, Rifaximin, Lasix, Aldactone and KCl Chronic / Recurrent upper GI bleed / Chronic Blood Loss Anemia / GERD - has both varices and hypertensive gastropathy - followed by GI - previously transfused, worsening anemia in comparison to previous HH but not for transfusion - PPI, nadolol Chronic Pancreatitis - Lipase elevated, w/o nausea, vomiting or abdominal pain Anxiety / Depression - prn Lorazepam at home, Lyrica Hypothyroidism - T4 and T3 supplemented DVT prophylaxis - SCDs Patient seen at [place], [place] in a real-time audiovisual communication and RN at bedside, with provider located in OR.
[2024-01-01 06:20] LABS: Add Manual Diff / Slide Review NO; Basophils Absolute Auto 0 /uL (0-100); Basophils Percent Auto 0.7 % (0-2); Eosinophils Absolute Auto 200 /uL (0-450); Eosinophils Percent Auto 4.3 % (2-4); Hematocrit 25.3 % (36-46); Hemoglobin 7.9 g/dL (12.0-16.0); Lymphocytes Absolute Auto 1200 /uL (1100-4500); Lymphocytes Percent Auto 22.8 % (25-40); Mean Corpuscular HGB Conc 31.5 % (30-36); Mean Corpuscular Hemoglobin 26.4 PG (26-34); Mean Corpuscular Volume 83.8 fL (80-100); Monocytes Absolute Auto 700 /uL (0-900); Monocytes Percent Auto 13.1 % (3-14); Neutrophils Absolute Auto 3000 /uL (1500-7000); Neutrophils Percent Auto 59.1 % (50-75); Platelet Count 144 X10^3/uL (150-400); Red Blood Cell Count 3.01 X10^6/uL (4.0-5.2); Red Cell Distribution Width 17.1 % (11.6-14.8); White Blood Cell Count 5.1 X10^3/uL (4.5-11.0)
[2024-01-01 06:32] LABS: Alanine Aminotransferase 48 IU/L (<35); Albumin 3.5 g/dL (3.5-5.0); Albumin Globulin Ratio 0.9 (1.0-2.8); Alkaline Phosphatase 87 U/L (38-126); Aspartate Aminotransferase 91 IU/L (14-36); BUN Creatinine Ratio 25.3 (6-22); Bilirubin Total 1.5 mg/dL (0.2-1.3); Blood Urea Nitrogen 22 mg/dL (7-17); Calcium 9.7 mg/dL (8.4-10.2); Carbon Dioxide 23 mmol/L (22-32); Chloride 115 mmol/L (98-107); Estimated Glomerular Filt Rate > 60 mL/min (>60); Globulin 3.8 g/dL (1.7-4.1); Glucose 75 mg/dL (80-110); HEMOLYSIS < 15 (0-50); Potassium 4.2 mmol/L (3.4-5.1); Sodium 142 mmol/L (137-145); Total Protein 7.3 g/dL (6.3-8.2)
[2024-01-01] MEDS: BACLOFEN 10 MG TABLET 5 MG PO ×3 (06:37→20:47)
[2024-01-01] MEDS: LEVOTHYROXINE 100 MCG TABLET PO (06:37)
--- NOTE | 2024-01-01 07:20 | PC.NURSE ---
PT denies dizziness or lightheaded while in bed, nausea, or abdominal pain. She is having frequent muscle movements of her extremities. Pt alert and oriented x3 reporting some confusion recently. Call light at bedside.
[2024-01-01] MEDS: LIOTHYRONINE 5 MCG TABLET 10 MCG PO (08:08)
[2024-01-01] MEDS: RIFAXIMIN 200 MG TABLET 400 MG PO ×3 (08:48→20:48)
[2024-01-01] MEDS: MAGNESIUM OXIDE 400 MG TABLET PO (08:49)
[2024-01-01] MEDS: SPIRONOLACTONE 25 MG TABLET 50 MG PO (08:50)
[2024-01-01] MEDS: FUROSEMIDE 40 MG TABLET PO (08:54)
--- NOTE | 2024-01-01 08:58 | PC.NURSE ---
Orthostatic vitals obtained while assisting patient up to bedside commode. Laying Bp 105/54 with HR 77, standing bp 101/60 HR 91. Pt unsteady while standing stating feel dizzy, see flashes of light, my head is throbbing and difficulty because of confusion. Pt assisted back into bed after BSC.
[2024-01-01] MEDS: PREGABALIN 75 MG CAPSULE PO ×3 (09:24→20:48)
[2024-01-01] MEDS: POTASSIUM CHLORIDE 20 MEQ TAB PO ×2 (09:24→20:47)
[2024-01-01] MEDS: LACTULOSE 20 GM/30 ML SOLUTION 30 GM PO (09:25)
--- NOTE | 2024-01-01 12:32 | PC.ADMIT ---
[email or web address] Admission Note: The patient,Kristne Castle,64 y/o, was given written information regarding hospital policies, unit procedures and contact persons. Patient's smoking status: Never smoker. Vital Signs - 8 hr 01/01/24 05:00 01/01/24 05:00 01/01/24 05:30 Pulse Rate 63 70 Respiratory Rate Blood Pressure 98/51 L Pulse Oximetry 96 98 Oxygen Delivery Method 01/01/24 06:00 01/01/24 06:30 01/01/24 07:00 Pulse Rate 79 71 78 Respiratory Rate Blood Pressure Pulse Oximetry 98 97 98 Oxygen Delivery Method 01/01/24 07:01 01/01/24 07:09 01/01/24 07:09 Pulse Rate 70 78 Respiratory Rate Blood Pressure 93/57 L Pulse Oximetry 99 98 Oxygen Delivery Method 01/01/24 07:11 01/01/24 07:11 01/01/24 07:21 Pulse Rate 76 Respiratory Rate Blood Pressure 111/64 112/58 L Pulse Oximetry 99 Oxygen Delivery Method 01/01/24 07:21 01/01/24 07:30 01/01/24 07:40 Pulse Rate 73 75 Respiratory Rate 25 H 29 H Blood Pressure 91/54 L Pulse Oximetry 98 97 Oxygen Delivery Method 01/01/24 07:40 01/01/24 08:00 01/01/24 08:00 Pulse Rate 73 72 Respiratory Rate 28 H Blood Pressure 98/61 Pulse Oximetry 96 97 Oxygen Delivery Method Room Air 01/01/24 08:12 01/01/24 08:12 01/01/24 08:21 Pulse Rate 72 71 Respiratory Rate 24 25 H Blood Pressure 96/50 L Pulse Oximetry 99 99 Oxygen Delivery Method Room Air 01/01/24 08:22 01/01/24 08:22 01/01/24 08:30 Pulse Rate 74 73 Respiratory Rate 29 H 23 Blood Pressure 110/61 Pulse Oximetry 97 99 Oxygen Delivery Method Room Air 01/01/24 08:58 01/01/24 08:58 01/01/24 09:00 Pulse Rate 73 80 Respiratory Rate Blood Pressure 105/54 L Pulse Oximetry 98 97 Oxygen Delivery Method Room Air 01/01/24 09:01 01/01/24 09:01 01/01/24 09:06 Pulse Rate 81 Respiratory Rate 24 Blood Pressure 101/60 110/54 L Pulse Oximetry 98 Oxygen Delivery Method Room Air 01/01/24 09:06 01/01/24 09:30 01/01/24 09:30 Pulse Rate 73 68 Respiratory Rate 28 H 28 H Blood Pressure 101/52 L Pulse Oximetry 100 100 Oxygen Delivery Method Room Air 01/01/24 10:00 01/01/24 10:00 01/01/24 10:30 Pulse Rate 72 Respiratory Rate 21 Blood Pressure 100/50 L 92/55 L Pulse Oximetry 100 Oxygen Delivery Method Room Air 01/01/24 10:30 01/01/24 10:47 01/01/24 10:47 Pulse Rate 63 67 Respiratory Rate 23 Blood Pressure 97/53 L Pulse Oximetry 98 99 Oxygen Delivery Method 01/01/24 11:00 01/01/24 11:00 01/01/24 11:04 Pulse Rate 67 Respiratory Rate 20 Blood Pressure 86/46 L 91/63 Pulse Oximetry 99 Oxygen Delivery Method Room Air 01/01/24 11:04 01/01/24 11:37 Pulse Rate 75 66 Respiratory Rate 23 Blood Pressure 107/54 L Pulse Oximetry 100 100 Oxygen Delivery Method Room Air Pt arrived via wheelchair from ED, VSS, assisted to bed and oriented to room and call light system. Pt able to express needs, and answer questions with a somewhat delayed or round about response, needs to be reminded of what the question was. Call light with in reach, bed alarm on, no further needs at this time.
--- NOTE | 2024-01-01 12:51 | P.HP_ITS ---
History of Present Illness History of Present Illness Date Patient Seen: 01/01/24 Time Patient Seen: 12:51 Chief complaint: general / severe pain with neurological issue Narrative: Per overnight provider, 64 y/o with PMH of alcoholic liver cirrhosis and portal HTN, esophageal varices, chronic anemia and upper GI bleed, chronic back pain requiring narcotic and muscle relaxant, who presented to ED confused, altered, after she had visual hallucinations, complaining on worsening back pain, 2 days after she stopped taking Baclofen due to twitching that she recognized to be a side effect and a day ago ran out of Dilaudid. ED workup negative for hyperammonemia, CTH unremarkable. Without leukocytosis. Worsening anemia likely with increased chronic or recurrent GI bleed. Lipase is elevated but she has no complaints on epigastric pain, nausea or vomiting. In the ED she was treated with Valium and Dilaudid. Placed in observation with likely Baclofen withdrawal. This morning she feels improved, no nausea or vomiting (she did have one episode of emesis, nbnb). She still sees circles on the almeida and has ringing in her ears though she reports these are fading after resuming baclofen. She also takes lyrica and benzos in addition to the dilaudid she recently took. [facility] Medical History Back pain Alcoholic cirrhosis GERD (gastroesophageal reflux disease) Pancytopenia Thrombocytopenia Anemia due to blood loss, acute Bleeding internal hemorrhoids Pancreatic lesion (~04/18/23) Weakness of left upper extremity Stroke Anemia, macrocytic Anemia, blood loss Alcohol use disorder, severe, in early remission Hemorrhoids, internal Depression Shortness of breath Hypercalcemia Weight gain Ascites due to alcoholic cirrhosis SBO (small bowel obstruction) Pancreatitis Intermittent palpitations (04/2019) History of blood transfusion (10/2015) Coagulation disorder (2012) Hypothyroidism Hypertension History of heavy periods (2014) Ovarian cyst (2012) Painful menstrual periods (2012) Measles Mumps Chicken pox Eczema (2014) Psoriasis (2014) PTSD (post-traumatic stress disorder) (1999) Anxiety EV (esophageal varices) (10/2015) Portal hypertensive gastropathy (05/2015) Nonalcoholic fatty liver disease GI bleeding (2015) Cirrhosis (2012) Cardiac arrhythmia History of alcohol abuse (12/27/15) Surgical History H/O bilateral oophorectomy History of appendectomy History of inguinal hernia repair History of cholecystectomy History of esophagogastroduodenoscopy (EGD) (05/2015) Status post laparoscopic supracervical hysterectomy (08/25/16) Status post hysteroscopy (06/17/11) Status post hernia repair Status post appendectomy History of esophagogastroduodenoscopy (EGD) (01/2009) Status post colonoscopy (01/2009) Family History Grandfather Heart disease [place] (myocardial infarction) Grandmother Alcoholism Father No problems noted. Mother No problems noted. Grandfather Heart disease Grandmother Colon cancer Brother No problems noted. Social History household members: family Smoking Status: Never smoker alcohol intake: current Meds Home Medications and Allergies Home Medications Medication Instructions Recorded Confirmed Type lactulose 10 gram/15 mL oral 15 - 30 ml PO DAILY PRN 10/16/22 11/25/23 History solution constipation clobetasol 0.05 % topical ointment 1 applic topical QAM AND QPM #30 10/20/22 11/25/23 Rx grams levothyroxine 100 mcg capsule 100 mcg PO DAILY #90 caps 10/20/22 11/25/23 Rx vit,calcium no.40-iron 1 tab PO DAILY #90 tabs 04/16/23 11/25/23 Rx fum 27 mg iron-folate no.1 1 mg tablet rifaximin 550 mg tablet (Xifaxan) 550 mg PO BID 06/16/23 11/25/23 History spironolactone 50 mg tablet 50 mg PO DAILY #90 tabs 06/30/23 11/25/23 Rx furosemide 20 mg tablet 40 mg (2 x 20 mg) PO QAM #60 tabs 10/07/23 11/25/23 Rx liothyronine 5 mcg tablet 10 mcg (2 x 5 mcg) PO DAILY #180 10/14/23 11/25/23 Rx tabs nadolol 20 mg tablet 30 mg (1.5 x 20 mg) PO DAILY #135 10/14/23 11/25/23 Rx tabs magnesium oxide 500 mg PO DAILY #30 tabs 10/22/23 11/25/23 Rx potassium chloride 20 mEq 20 meq PO BID #60 tabs 10/22/23 11/25/23 Rx tablet,extended release(part/cryst) (Jamilah M) pregabalin 75 mg capsule 75 mg PO TID #90 caps 10/22/23 11/25/23 Rx lorazepam 1 mg tablet 1 mg PO DAILY PRN anxiety #90 tabs 10/26/23 11/25/23 Rx baclofen 20 mg tablet See Rx Instructions .Route 11/25/23 11/25/23 Rx .COMPLEX #120 tabs hydromorphone 2 mg tablet 2 mg PO Q4-6H PRN pain #40 tabs 11/25/23 11/25/23 Rx Allergies Allergy/AdvReac Type Severity Reaction Status Date / Time doxepin AdvReac Intermediate ITCHING Uncoded 12/31/23 13:32 Review of Systems Review of Systems Narrative: All other systems reviewed with the patient and are negative unless otherwise stated. Exam Vital Signs (past 8 hours): - 01/01/24 05:00 01/01/24 05:00 01/01/24 05:30 Pulse Rate 63 70 Respiratory Rate Blood Pressure 98/51 L Pulse Oximetry 96 98 Oxygen Delivery Method 01/01/24 06:00 01/01/24 06:30 01/01/24 07:00 Pulse Rate 79 71 78 Respiratory Rate Blood Pressure Pulse Oximetry 98 97 98 Oxygen Delivery Method 01/01/24 07:01 01/01/24 07:09 01/01/24 07:09 Pulse Rate 70 78 Respiratory Rate Blood Pressure 93/57 L Pulse Oximetry 99 98 Oxygen Delivery Method 01/01/24 07:11 01/01/24 07:11 01/01/24 07:21 Pulse Rate 76 Respiratory Rate Blood Pressure 111/64 112/58 L Pulse Oximetry 99 Oxygen Delivery Method 01/01/24 07:21 01/01/24 07:30 01/01/24 07:40 Pulse Rate 73 75 Respiratory Rate 25 H 29 H Blood Pressure 91/54 L Pulse Oximetry 98 97 Oxygen Delivery Method 01/01/24 07:40 01/01/24 08:00 01/01/24 08:00 Pulse Rate 73 72 Respiratory Rate 28 H Blood Pressure 98/61 Pulse Oximetry 96 97 Oxygen Delivery Method Room Air 01/01/24 08:12 01/01/24 08:12 01/01/24 08:21 Pulse Rate 72 71 Respiratory Rate 24 25 H Blood Pressure 96/50 L Pulse Oximetry 99 99 Oxygen Delivery Method Room Air 01/01/24 08:22 01/01/24 08:22 01/01/24 08:30 Pulse Rate 74 73 Respiratory Rate 29 H 23 Blood Pressure 110/61 Pulse Oximetry 97 99 Oxygen Delivery Method Room Air 01/01/24 08:58 01/01/24 08:58 01/01/24 09:00 Pulse Rate 73 80 Respiratory Rate Blood Pressure 105/54 L Pulse Oximetry 98 97 Oxygen Delivery Method Room Air 01/01/24 09:01 01/01/24 09:01 01/01/24 09:06 Pulse Rate 81 Respiratory Rate 24 Blood Pressure 101/60 110/54 L Pulse Oximetry 98 Oxygen Delivery Method Room Air 01/01/24 09:06 01/01/24 09:30 01/01/24 09:30 Pulse Rate 73 68 Respiratory Rate 28 H 28 H Blood Pressure 101/52 L Pulse Oximetry 100 100 Oxygen Delivery Method Room Air 01/01/24 10:00 01/01/24 10:00 01/01/24 10:30 Pulse Rate 72 Respiratory Rate 21 Blood Pressure 100/50 L 92/55 L Pulse Oximetry 100 Oxygen Delivery Method Room Air 01/01/24 10:30 01/01/24 10:47 01/01/24 10:47 Pulse Rate 63 67 Respiratory Rate 23 Blood Pressure 97/53 L Pulse Oximetry 98 99 Oxygen Delivery Method 01/01/24 11:00 01/01/24 11:00 01/01/24 11:04 Pulse Rate 67 Respiratory Rate 20 Blood Pressure 86/46 L 91/63 Pulse Oximetry 99 Oxygen Delivery Method Room Air 01/01/24 11:04 01/01/24 11:37 Pulse Rate 75 66 Respiratory Rate 23 Blood Pressure 107/54 L Pulse Oximetry 100 100 Oxygen Delivery Method Room Air Oxygen Delivery Method Room Air Narrative Exam Narrative: General:? Patient is well developed and well nourished, in no distress at this time. Chest:? Normal AP diameter and contour without kyphoscoliosis, no tachypnea, equal chest rise bilaterally. Lungs:? CTA b/l no wheezing rhonchi or rales. Cardio:?RRR no m/r/g. Abdomen: S NT ND. Musculoskeletal:? Muscle strength and tone are equal within normal limits, no deformity. Extremities: No edema or joint effusions. No cyanosis or clubbing. Neuro:? Alert and orientated x3,? sensation to touch intact in all extremities, no gross deficits noted of cranial nerves. Psych:? Patient has a well-kept appearance, appropriate affect, mental status attitude thought context and judgment are appropriate for age. Reports visual hallucinations as noted in HPI. Objective Labs 01/01/24 06:00 01/01/24 06:00 Labs: Laboratory Results - last 24 hr 12/31/23 12/31/23 12/31/23 17:10 21:32 23:30 WBC 4.7 RBC 2.91 L Hgb 7.6 L Hct 24.1 L MCV 83.0 MCH 26.3 MCHC 31.6 RDW 17.0 H Plt Count 129 L Neut % (Auto) 56.1 Lymph % (Auto) 25.9 [place] % (Auto) 13.7 Eos % (Auto) 3.5 Baso % (Auto) 0.8 Neut # (Auto) 2700 Lymph # (Auto) 1200 [place] # (Auto) 600 Eos # (Auto) 200 Baso # (Auto) 0 Sodium 143 Potassium 4.0 Chloride 114 H Carbon Dioxide 22 BUN 23 H Creatinine 1.26 H Estimated GFR 48 L BUN/Creatinine Ratio 18.3 Glucose 80 Calcium 9.8 Total Bilirubin 1.3 AST 92 H ALT 46 H Alkaline Phosphatase 94 Ammonia < 9 L Total Protein 7.7 Albumin 3.6 Globulin 4.1 Albumin/Globulin Ratio 0.9 L Lipase 723 H Urine RBC 0-1/hpf Urine WBC 1-5/hpf Ur Squamous Epith Cells 1-5 /hpf Ur Renal Epithelial Cell 1-5/hpf H Urine Bacteria None seen Hyaline Casts 0-1/lpf Other Casts 0-1 Ur Culture Indicated? Cult not indicated Vol Urine Centrifuged 10ml (spun) U Opiates 300ng/mL cut Negative Ur Oxycodone Screen Negative Urine Methadone Screen Negative Ur Barbiturates Screen Negative U Tricyclic Antidepress Negative Ur Phencyclidine Scrn Negative Ur Amphetamines Screen Negative U Methamphetamines Scrn Negative Ur MDMA Scrn (Ecstasy) Negative U Benzodiazepines Scrn Negative Urine Cocaine Screen Negative U Marijuana (THC) Screen Negative Urine pH Normal Urine Specific [place] Normal Ethyl Alcohol < 10 Ur Creatinine Normal 06/21/24 06:00 WBC 5.1 RBC 3.01 L Hgb 7.9 L Hct 25.3 L MCV 83.8 MCH 26.4 MCHC 31.5 RDW 17.1 H Plt Count 144 L Neut % (Auto) 59.1 Lymph % (Auto) 22.8 L [place] % (Auto) 13.1 Eos % (Auto) 4.3 H Baso % (Auto) 0.7 Neut # (Auto) 3000 Lymph # (Auto) 1200 [place] # (Auto) 700 Eos # (Auto) 200 Baso # (Auto) 0 Sodium 142 Potassium 4.2 Chloride 115 H Carbon Dioxide 23 BUN 22 H Creatinine 0.87 Estimated GFR > 60 BUN/Creatinine Ratio 25.3 H Glucose 75 L Calcium 9.7 Total Bilirubin 1.5 H AST 91 H ALT 48 H Alkaline Phosphatase 87 Ammonia Total Protein 7.3 Albumin 3.5 Globulin 3.8 Albumin/Globulin Ratio 0.9 L Lipase Urine RBC Urine WBC Ur Squamous Epith Cells Ur Renal Epithelial Cell Urine Bacteria Hyaline Casts Other Casts Ur Culture Indicated? Vol Urine Centrifuged U Opiates 300ng/mL cut Ur Oxycodone Screen Urine Methadone Screen Ur Barbiturates Screen U Tricyclic Antidepress Ur Phencyclidine Scrn Ur Amphetamines Screen U Methamphetamines Scrn Ur MDMA Scrn (Ecstasy) U Benzodiazepines Scrn Urine Cocaine Screen U Marijuana (THC) Screen Urine pH Urine Specific [place] Ethyl Alcohol Ur Creatinine Assessment & Plan Assessment & Plan narrative: Acute toxic encephalopathy from polypharmacy and withdrawal - extensive workup non-revealing, likely due to Baclofen Withdrawal, improving today with resumption - hepatic encephalopathy is also possible despite negative ammonia level given cirrhosis history. But less likely. Continue lactulose to titrate to 3-5 BMs per day. - continue baclofen 5 mg TID, will need slow taper as an outpatient. - resume home lyrica. - has been on a number of medications including pregabalin, lorazepam, hydromorphone, and baclofen for back pain. Chronic low Back Pain - continue baclofen, hold hydromorphone - lidocaine patch - continue home pregabalin. Alcoholism / Alcoholic Liver Cirrhosis / history of Hepatic Encephalopathy / Ascites - last binge 3 months ago, apparently - LFTs and electrolytes at baseline - compliant with MVI, lactulose, Rifaximin, Lasix, Aldactone and KCl Chronic / Recurrent upper GI bleed / Chronic Blood Loss Anemia / GERD - has both varices and hypertensive gastropathy - followed by GI - previously transfused, worsening anemia in comparison to previous HH but not for transfusion - PPI, nadolol - will continue to trend, monitor for signs/symptoms of bleeding. Chronic Pancreatitis - Lipase elevated, w/o nausea, vomiting or abdominal pain Anxiety / Depression - prn Lorazepam at home Hypothyroidism - T4 and T3 supplemented DVT prophylaxis - SCDs Code: Full Dispo: admitted observation, probable discharge home tomorrow if continued improvement and resolution of hallucinations. I have utilized all available immediate resources to obtain, update, or review the patient's current medications. Case discussed with overnight provider, ER provider and nursing staff to formulate the above assessment and plan, and contribute to presenting history.
[2024-01-01 13:09] LABS: MRSA (Nasal) PCR NOT DETECTED (Not Detect)
[2024-01-02] VITALS (7 sets, daily range): BP systolic 95–114; BP diastolic 48–59; PULSE 68–77; RESP 16–20; TEMP 36.3–37.1; O2SAT 95–99
[2024-01-02 05:17] LABS: Add Manual Diff / Slide Review NO; Basophils Absolute Auto 0 /uL (0-100); Basophils Percent Auto 0.6 % (0-2); Eosinophils Absolute Auto 100 /uL (0-450); Eosinophils Percent Auto 3.6 % (2-4); Hematocrit 21.9 % (36-46); Lymphocytes Absolute Auto 900 /uL (1100-4500); Lymphocytes Percent Auto 33.8 % (25-40); Mean Corpuscular HGB Conc 31.8 % (30-36); Mean Corpuscular Hemoglobin 25.9 PG (26-34); Mean Corpuscular Volume 81.5 fL (80-100); Monocytes Absolute Auto 300 /uL (0-900); Monocytes Percent Auto 11.3 % (3-14); Neutrophils Absolute Auto 1400 /uL (1500-7000); Neutrophils Percent Auto 50.7 % (50-75); Platelet Count 93 X10^3/uL (150-400); Red Blood Cell Count 2.69 X10^6/uL (4.0-5.2); White Blood Cell Count 2.8 X10^3/uL (4.5-11.0)
[2024-01-02 05:31] LABS: Alanine Aminotransferase 40 IU/L (<35); Albumin Globulin Ratio 0.9 (1.0-2.8); Alkaline Phosphatase 71 U/L (38-126); Aspartate Aminotransferase 78 IU/L (14-36); Bilirubin Total 1.1 mg/dL (0.2-1.3); Blood Urea Nitrogen 15 mg/dL (7-17); Carbon Dioxide 29 mmol/L (22-32); Chloride 108 mmol/L (98-107); Estimated Glomerular Filt Rate > 60 mL/min (>60); Globulin 3.5 g/dL (1.7-4.1); Glucose 86 mg/dL (80-110); HEMOLYSIS < 15 (0-50); Magnesium 1.5 mg/dL (1.6-2.3); Potassium 4.1 mmol/L (3.4-5.1); Sodium 136 mmol/L (137-145); Total Protein 6.5 g/dL (6.3-8.2)
[2024-01-02] MEDS: LEVOTHYROXINE 100 MCG TABLET PO (05:56)
[2024-01-02] MEDS: LIOTHYRONINE 5 MCG TABLET 10 MCG PO (05:56)
[2024-01-02] MEDS: RIFAXIMIN 200 MG TABLET 400 MG PO ×2 (09:22→14:48)
[2024-01-02] MEDS: POTASSIUM CHLORIDE 20 MEQ TAB PO (09:23)
[2024-01-02] MEDS: MAGNESIUM OXIDE 400 MG TABLET PO (09:23)
[2024-01-02] MEDS: FUROSEMIDE 40 MG TABLET PO (09:23)
[2024-01-02] MEDS: PREGABALIN 75 MG CAPSULE PO ×2 (09:23→14:47)
[2024-01-02] MEDS: SPIRONOLACTONE 25 MG TABLET 50 MG PO (09:23)
[2024-01-02] MEDS: BACLOFEN 10 MG TABLET 5 MG PO ×2 (09:23→14:47)
--- NOTE | 2024-01-02 11:57 | P.DS_ITS ---
History of Present Illness History of Present Illness Date Patient Seen: 01/02/24 Time Patient Seen: 08:00 Date of Onset of Symptoms: 01/01/24 Chief complaint: general / severe pain with neurological issue Narrative: 64 y/o with PMH of alcoholic liver cirrhosis and portal HTN, esophageal varices, chronic anemia and upper GI bleed, chronic back pain requiring narcotic and muscle relaxant, who presented to ED confused, altered, after she had visual hallucinations, complaining on worsening back pain, 2 days after she stopped taking Baclofen due to twitching that she recognized to be a side effect and a day ago ran out of Dilaudid. ED workup negative for hyperammonemia, CTH unremarkable. Without leukocytosis. Worsening anemia likely with increased chronic or recurrent GI bleed. Lipase is elevated but she has no complaints on epigastric pain, nausea or vomiting. In the ED she was treated with Valium and Dilaudid. Placed in observation with likely Baclofen withdrawal. This morning she feels improved, no nausea or vomiting (she did have one episode of emesis, nbnb). She still sees circles on the almeida and has ringing in her ears though she reports these are fading after resuming baclofen. She also takes lyrica and benzos in addition to the dilaudid she recently took. Discharge Providers Provider Date of admission: 01/01/24 00:49 Discharge Date: 01/02/24 Primary care physician: HARJEET John Discharge provider: Joesph Blanco MD Summary Hospital Course Discharge Diagnosis: 1. Acute toxic encephalopathy due to baclofen withdrawal 2. Chronic low back pain 3. Alcohol use disorder with cirrhosis, history of hepatic encephalopathy and ascites 4. Chronic recurrent upper gastrointestinal bleeding with chronic blood-loss anemia, status post 2 unit packed red blood cell transfusion 5. Chronic pancreatitis 6. Anxiety/depression 7. Hypothyroidism Hospital Course: Acute toxic encephalopathy from polypharmacy and withdrawal - extensive workup non-revealing, likely due to Baclofen Withdrawal, improved significantly and resolved with resumption of baclofen - hepatic encephalopathy is also possible despite negative ammonia level given cirrhosis history. But less likely. Continue lactulose to titrate to 3-5 BMs per day. - continue baclofen 5 mg TID, will need slow taper as an outpatient. -continued routine home lyrica. - has been on a number of medications including pregabalin, lorazepam, hydromorphone, and baclofen for back pain. Chronic low Back Pain - continue baclofen, held hydromorphone - lidocaine patch - continue home pregabalin. Alcoholism / Alcoholic Liver Cirrhosis / history of Hepatic Encephalopathy / Ascites - last binge 3 months ago, apparently - LFTs and electrolytes at baseline - compliant with MVI, lactulose, Rifaximin, Lasix, Aldactone and KCl Chronic / Recurrent upper GI bleed / Chronic Blood Loss Anemia / GERD - has both varices and hypertensive gastropathy - followed by GI - previously transfused, worsening anemia in comparison to previous HH but not for transfusion on admission - PPI, nadolol - transfused 2 units of packed red blood cells on the day of discharge given downward trending trending in the setting of chronic gastrointestinal bleeding, without significant new active volume bleeding Chronic Pancreatitis - Lipase elevated, w/o nausea, vomiting or abdominal pain Anxiety / Depression - prn Lorazepam at home Hypothyroidism - T4 and T3 supplemented Status at Discharge Cognitive/behavioral status at discharge: oriented Functional status at discharge: independent ambulation Overall status at discharge: patient is back to baseline Time Spent with Patient Time spent: Less than 30 minutes Exam Vital Signs (past 8 hours): - 01/02/24 04:36 01/02/24 07:00 01/02/24 08:00 Temperature 98.8 F Pulse Rate 70 70 Respiratory Rate 17 16 Blood Pressure 97/55 L 99/48 L Pulse Oximetry 95 99 Oxygen Delivery Method Room Air Oxygen Flow Rate 0 0 01/02/24 11:06 Temperature 97.6 F Pulse Rate 75 Respiratory Rate 18 Blood Pressure 106/52 L Pulse Oximetry Oxygen Delivery Method Oxygen Flow Rate Oxygen Delivery Method Room Air Oxygen Flow Rate 0 Narrative Exam Narrative: GENERAL: This is a well-nourished, well-developed patient, in no apparent distress. HEAD: Atraumatic. Normocephalic. No temporal or scalp tenderness. EYES: Pupils equal round and reactive. Extraocular motions intact. No scleral icterus. No injection or drainage. ENT: Mucous membranes pink and moist. NECK: Trachea midline. No JVD, bruits or lymphadenopathy. Supple, nontender, no meningeal signs. CARDIOVASCULAR: Regular rate and rhythm without murmurs, gallops, or rubs. RESPIRATORY: Clear to auscultation. GASTROINTESTINAL: Abdomen soft, non-tender, nondistended. EXTREMITIES: Trace pedal edema. NEUROLOGIC: Alert, oriented, speech fluent, full upper and lower motor strength, no focal deficits evident. DERMATOLOGIC: No rashes or skin lesions. Objective Imaging CT scan - head: Radiologist's impression: 1. CT head without acute intracranial abnormalities or acute calvarial fractures. 2. Age-related senescent changes and sequela of chronic small vessel ischemic disease. CT scan - abdomen: Radiologist's impression: CT abdomen and pelvis without acute abnormalities to explain patient's symptoms. Stable appearance of cirrhotic liver without new intrahepatic lesions. Status post cholecystectomy. Stable appearance of the pancreas with heterogeneous hypoattenuation of the pancreatic head and uncinate region without associated pancreatic ductal dilatation. Multiple coarse calcifications also appears stable and likely sequela of chronic pancreatitis. Minimal peripancreatic stranding likely senescent. However, recommend correlation with laboratory evaluation to exclude possible acute pancreatitis. Other chronic findings as above. Labs 01/02/24 04:25 01/02/24 04:25 Labs: Laboratory Results - last 24 hr 01/01/24 01/02/24 01/02/24 11:50 04:25 09:53 WBC 2.8 L RBC 2.69 L Hgb 7.0 L Hct 21.9 L MCV 81.5 MCH 25.9 L MCHC 31.8 RDW 17.0 H Plt Count 93 L Neut % (Auto) 50.7 Lymph % (Auto) 33.8 [place] % (Auto) 11.3 Eos % (Auto) 3.6 Baso % (Auto) 0.6 Neut # (Auto) 1400 L Lymph # (Auto) 900 L [place] # (Auto) 300 Eos # (Auto) 100 Baso # (Auto) 0 Sodium 136 L Potassium 4.1 Chloride 108 H Carbon Dioxide 29 BUN 15 Creatinine 0.79 Estimated GFR > 60 BUN/Creatinine Ratio 19.0 Glucose 86 Calcium 9.0 Magnesium 1.5 L Total Bilirubin 1.1 AST 78 H ALT 40 H Alkaline Phosphatase 71 Total Protein 6.5 Albumin 3.0 L Globulin 3.5 Albumin/Globulin Ratio 0.9 L Nasal Screen MRSA (PCR) Not detected Blood Type A Positive Antibody Screen Negative Crossmatch See Detail [facility] Medical History Back pain Alcoholic cirrhosis GERD (gastroesophageal reflux disease) Pancytopenia Thrombocytopenia Anemia due to blood loss, acute Bleeding internal hemorrhoids Pancreatic lesion (~04/18/23) Weakness of left upper extremity Stroke Anemia, macrocytic Anemia, blood loss Alcohol use disorder, severe, in early remission Hemorrhoids, internal Depression Shortness of breath Hypercalcemia Weight gain Ascites due to alcoholic cirrhosis SBO (small bowel obstruction) Pancreatitis Intermittent palpitations (04/2019) History of blood transfusion (10/2015) Coagulation disorder (2012) Hypothyroidism Hypertension History of heavy periods (2014) Ovarian cyst (2012) Painful menstrual periods (2012) Measles Mumps Chicken pox Eczema (2014) Psoriasis (2014) PTSD (post-traumatic stress disorder) (1999) Anxiety EV (esophageal varices) (10/2015) Portal hypertensive gastropathy (05/2015) Nonalcoholic fatty liver disease GI bleeding (2015) Cirrhosis (2012) Cardiac arrhythmia History of alcohol abuse (12/27/15) Surgical History H/O bilateral oophorectomy History of appendectomy History of inguinal hernia repair History of cholecystectomy History of esophagogastroduodenoscopy (EGD) (05/2015) Status post laparoscopic supracervical hysterectomy (08/25/16) Status post hysteroscopy (06/17/11) Status post hernia repair Status post appendectomy History of esophagogastroduodenoscopy (EGD) (01/2009) Status post colonoscopy (01/2009) Family History Grandfather Heart disease [place] (myocardial infarction) Grandmother Alcoholism Father No problems noted. Mother No problems noted. Grandfather Heart disease Grandmother Colon cancer Brother No problems noted. Social History household members: family Smoking Status: Never smoker alcohol intake: current Discharge Assessment & Plan Assessment and Plan Plan of Treatment: Follow up with primary care provider within 7 days of discharge. Discharge Plan Discharge Plan Patient Disposition: Home Discharge orders & Medications Prescriptions: Continued levothyroxine 100 mcg capsule 100 mcg PO DAILY Qty: 90 3RF ,[id number] 1 27-1 mg tablet 1 tab PO DAILY Qty: 90 3RF Rx Instructions: Take 1 tab daily for anemia spironolactone 50 mg tablet 50 mg PO DAILY Qty: 90 3RF furosemide 20 mg tablet 40 mg PO QAM Qty: 60 3RF Rx Instructions: Take 1 extra tab of 20mg (total 40mg) daily liothyronine 5 mcg tablet 10 mcg PO DAILY Qty: 180 3RF nadolol 20 mg tablet 30 mg PO DAILY Qty: 135 3RF lorazepam 1 mg tablet 1 mg PO DAILY PRN (Reason: anxiety) Qty: 90 0RF lactulose 10 gram/15 mL solution 15 - 30 ml PO DAILY PRN (Reason: constipation) Patient Comments: Take 30mL daily if pt does not have 3 BMs per day Xifaxan 550 mg tablet 550 mg PO BID potassium chloride [Klor-Con M20] 20 mEq tablet,ER particles/crystals 20 meq PO BID Qty: 60 3RF magnesium oxide 500 mg magnesium tablet 500 mg PO DAILY Qty: 30 3RF pregabalin 75 mg capsule 75 mg PO TID Qty: 90 3RF clobetasol 0.05 % ointment 1 applic topical QAM AND QPM Qty: 30 3RF Rx Instructions: Apply to itchy leg twice per day x2 weeks total. baclofen 20 mg tablet See Rx Instructions .ROUTE .COMPLEX Qty: 120 1RF Rx Instructions: Take 1/2 to 1 tab 4x/day as needed for muscle spasms; hydromorphone 2 mg tablet 2 mg PO Q4-6H PRN (Reason: pain) Qty: 40 0RF Follow up/Referrals: Divina Lopes ARNP [Primary Care Provider] - Visit Report/Discharge Packet Stand Alone Forms: Patient Portal/API, Stroke Signs & Symptoms Discharge Data Primary Care Provider: Divina Lopes Attending Provider: Jaya Gomez Admrobin Date/Time: 01/01/24 00:49
--- NOTE | 2024-01-02 14:24 | CM.DANOTE ---
Discharge Planning/Care Management CM Discharge Assessment Start: 01/02/24 14:18 Freq: Status: Active Protocol: Document 01/02/24 14:18 SAÚL (Rec: 01/02/24 14:24 [id number]) Discharge Planning Assessment Assigned Blood Bank Manager REBA Castro DPOA/Assigned Designee Name father Dawson Contact Information [phone] Advance Directives? Yes Advance Directives on File No History Provided By Patient,Medical Record Prior Living Arrangements House Household Members family Type of transporation used prior to Drives own vehicle admit Independent with ADL's Yes Is patient alert and oriented? Yes Barriers to Discharge No Comment Met w/patient to review discharge plan and discuss SHAHRIAR /ETOH use. Patient denies current alcohol use, reports relapse every few months with one day binge drinking. Patient denies need for resources, states she has supportive parents and friends . No addtl needs identified by this CM team; home with parents. Discharge Plan Home Transportation Arrangement Family or friends Referrals Initiated None needed Whiteboard Updated in Patient Room with Yes name and ext. # of Blood Bank Manager
--- NOTE | 2024-01-02 16:19 | PC.NURSE ---
pt's hgb 7.0 this a.m.; pt has hx upper and lower GI bleeding; she spoke w/ Dr. Blanco and agreed to blood transfusion; pt transfused 2 units PRBCs without adverse reaction; Dr Blanco came and spoke w/ pt post transfusions; pt discharged home w/ family; written and verbal discharge instructions to pt and she verbalized understanding; iv removed intact; all belongings sent w/ pt; escorted to private vehicle via w/c
== END 2024-01-02 16:20 | disposition home or self-care (01) ==
LOC: ED 01-01 00:48 → AC 01-01 00:50 → ICU 01-01 11:41 → AC 01-02 07:21
PROVIDERS: Emergency Medicine; Internal Medicine; Admitting Provider Internal Medicine; Emergency Provider Emergency Medicine; Family Provider Nurse Practitioner; PCP Nurse Practitioner; Referring Provider Emergency Medicine; Visit Provider Internal Medicine
DX: G92.8 Other toxic encephalopathy (principal); F19.239 Other psychoactive substance dependence with withdrawal, unspecified; M54.9 Dorsalgia, unspecified; R41.82 Altered mental status, unspecified; F10.21 Alcohol dependence, in remission; K70.30 Alcoholic cirrhosis of liver without ascites; K86.0 Alcohol-induced chronic pancreatitis; F33.41 Major depressive disorder, recurrent, in partial remission; F41.9 Anxiety disorder, unspecified; E03.9 Hypothyroidism, unspecified
CPT/HCPCS: 36415; 36430; 70450; 74177; 80053; 80305; 80320; 81003; 81015; 82140; 82962; 83690; 83735; 85025; 86850; 86900; 86901; 87797; 96361; 96374; 96375; 99284; G0378; P9016; J1170; J2405; Q9967

== ENCOUNTER 2024-01-08 13:33 | Inpatient (IN) | payer OTHER, MEDICAID, SELFPAY ==
[2024-01-01 12:01] VITALS: BMI 23.4
[2024-01-08] VITALS (18 sets, daily range): BP systolic 109–135; BP diastolic 59–69; PULSE 52–65; RESP 13–53; TEMP 36.2–37; O2SAT 92–100; BMI 22.3; BMI 21.9
--- NOTE | 2024-01-08 13:59 | ED_ITS ---
HPI - GI Bleed General Chief complaint: GI Bleed Stated complaint: GI Bleed Time Seen by Provider: 01/08/24 13:42 Source: patient Mode of arrival: EMS Limitations: no limitations History of Present Illness HPI Narrative: 64-year-old female. Has a history of end-stage renal disease. Has a history of esophageal varices and hemorrhoids. Is followed by GI. Has had episodes in the past where she was had GI bleeds requiring blood transfusions. She was admitted to the hospital recently for non alcohol related issues where she did receive blood transfusion. She was here for evaluation today because of 1 episode of vomiting blood and also blood per rectum. She denies abdominal pain, shortness of breath, chest pain, headache. She states she has not been drinking any alcohol. Her last admission hospital was secondary to concern for baclofen withdrawal. She denies any other illicit drugs. Related Data Home Medications Medication Instructions Recorded Confirmed lactulose 10 gram/15 mL oral 15 - 30 ml PO DAILY PRN 10/16/22 01/07/24 solution constipation rifaximin 550 mg tablet (Xifaxan) 550 mg PO BID 06/16/23 01/07/24 Previous Rx's Medication Instructions Recorded clobetasol 0.05 % topical ointment 1 applic topical QAM AND QPM #30 10/20/22 grams levothyroxine 100 mcg capsule 100 mcg PO DAILY #90 caps 10/20/22 vit,calcium no.40-iron 1 tab PO DAILY #90 tabs 04/16/23 fum 27 mg iron-folate no.1 1 mg tablet spironolactone 50 mg tablet 50 mg PO DAILY #90 tabs 06/30/23 furosemide 20 mg tablet 40 mg (2 x 20 mg) PO QAM #60 tabs 10/07/23 liothyronine 5 mcg tablet 10 mcg (2 x 5 mcg) PO DAILY #180 10/14/23 tabs nadolol 20 mg tablet 30 mg (1.5 x 20 mg) PO DAILY #135 10/14/23 tabs magnesium oxide 500 mg PO DAILY #30 tabs 10/22/23 potassium chloride 20 mEq 20 meq PO BID #60 tabs 10/22/23 tablet,extended release(part/cryst) (Klor-Con M) pregabalin 75 mg capsule 75 mg PO TID #90 caps 10/22/23 lorazepam 1 mg tablet 1 mg PO DAILY PRN anxiety #90 tabs 10/26/23 baclofen 20 mg tablet See Rx Instructions .Route 01/07/24 .COMPLEX #1 tab hydromorphone 2 mg tablet 2 mg PO Q4-6H PRN pain #40 tabs 01/07/24 methocarbamol 750 mg tablet 750 mg PO TID PRN Muscle spasms 01/07/24 #60 tabs Allergies Allergy/AdvReac Type Severity Reaction Status Date / Time doxepin Allergy Intermediate ITCHING Verified 01/08/24 14:03 Review of Systems Review of Systems ROS Unobtainable: All systems reviewed & are unremarkable except as noted in HPI and below Patient History Medical History Multilevel spondylosis Back pain Alcoholic cirrhosis GERD (gastroesophageal reflux disease) Pancytopenia Thrombocytopenia Anemia due to blood loss, acute Bleeding internal hemorrhoids Pancreatic lesion (~04/18/23) Weakness of left upper extremity Stroke Anemia, macrocytic Anemia, blood loss Alcohol use disorder, severe, in early remission Hemorrhoids, internal Depression Shortness of breath Hypercalcemia Weight gain Ascites due to alcoholic cirrhosis SBO (small bowel obstruction) Pancreatitis Intermittent palpitations (04/2019) History of blood transfusion (10/2015) Coagulation disorder (2012) Hypothyroidism Hypertension History of heavy periods (2014) Ovarian cyst (2012) Painful menstrual periods (2012) Measles Mumps Chicken pox Eczema (2014) Psoriasis (2014) PTSD (post-traumatic stress disorder) (1999) Anxiety EV (esophageal varices) (10/2015) Portal hypertensive gastropathy (05/2015) Nonalcoholic fatty liver disease GI bleeding (2015) Cirrhosis (2012) Cardiac arrhythmia History of alcohol abuse (12/27/15) Surgical History H/O bilateral oophorectomy History of appendectomy History of inguinal hernia repair History of cholecystectomy History of esophagogastroduodenoscopy (EGD) (05/2015) Status post laparoscopic supracervical hysterectomy (08/25/16) Status post hysteroscopy (06/17/11) Status post hernia repair Status post appendectomy History of esophagogastroduodenoscopy (EGD) (01/2009) Status post colonoscopy (01/2009) Family History Grandfather Heart disease [place] (myocardial infarction) Grandmother Alcoholism Father No problems noted. Mother No problems noted. Grandfather Heart disease Grandmother Colon cancer Brother No problems noted. Social History household members: family Smoking Status: Never smoker alcohol intake: current Smoking Status: Never smoker alcohol intake frequency: 3 or more drinks per day Alcohol type: wine Substance Use Type: does not use Exam Initial Vital Signs Initial Vital Signs: Vital Signs Blood Pressure 131/69 01/08/24 13:35 Const General: cooperative and comfortable HENMT Head: normal to inspection and normocephalic Resp Effort & Inspection: normal respiratory effort Auscultation: clear to auscultation bilaterally Cardio Rate: regular rate Rhythm: regular rhythm GI Inspection: normal to inspection and non-distended Skin General: no rashes or lesions noted Neuro General: patient alert, patient awake, patient oriented x3 and moves all extremities Psych Other: Appears anxious Course Orders Ordered: ED Orders 01/08/24 13:58 Complete Blood Count AUTO DIFF Stat Comprehensive Metabolic Panel Stat ETOH [Ethanol (ETOH)] Stat Lipase Stat 01/08/24 14:41 Ammonia (NH3) Stat 01/08/24 14:50 XR chest 1V Stat EKG-12 Lead Stat 01/08/24 16:45 CBC Auto Diff [Complete Blood Count AUTO DIFF] Stat Baclofen (Baclofen 10 Mg Tablet) 0 mg PO .COMPLEX AGNIESZKA Lactulose (Lactulose 20 Gm/30 Ml Solution) 15 gm PO DAILY AGNIESZKA Morphine Sulfate (Morphine 4 Mg/Ml Inj) 2 mg IV Q2HR PRN PRN Reason: Pain, Moderate (4-6) Naloxone HCl (Naloxone 0.4 Mg/Ml Vial) 0.2 mg IV Q2MIN PRN PRN Reason: Opiate Reversal Non-Formulary Medication (Levothyroxine) 100 mcg PO DAILY AGNIESZKA Non-Formulary Medication (Nadolol) 20 mg PO DAILY AGNIESZKA Ondansetron HCl (Ondansetron 4 Mg/2 Ml Inj) 4 mg IV Q8HR PRN PRN Reason: Nausea And Vomiting Discontinued Medications Lorazepam (Lorazepam 2 Mg/Ml Inj) 1 mg IV NOW ONE Stop: 01/08/24 14:03 Last Admin: 01/08/24 14:20 Dose: 1 mg Documented By: KM Ondansetron HCl (Ondansetron 4 Mg/2 Ml Inj) 4 mg IV NOW ONE Stop: 01/08/24 14:51 Last Admin: 01/08/24 14:54 Dose: 4 mg Documented By: ANUPAMA Vital Signs Vital signs: Vital Signs - 8 hr 01/08/24 13:35 01/08/24 13:36 01/08/24 13:38 Temperature 98.6 F Pulse Rate 61 59 L Respiratory Rate 26 H Blood Pressure 131/69 131/69 Pulse Oximetry 99 100 Oxygen Delivery Method Room Air 01/08/24 14:00 01/08/24 14:00 01/08/24 14:30 Temperature Pulse Rate 65 Respiratory Rate Blood Pressure 125/60 130/65 Pulse Oximetry 98 Oxygen Delivery Method 01/08/24 14:30 01/08/24 15:00 01/08/24 15:00 Temperature Pulse Rate 63 63 Respiratory Rate 53 H Blood Pressure 114/59 L Pulse Oximetry 92 Oxygen Delivery Method 01/08/24 15:30 01/08/24 15:30 01/08/24 16:00 Temperature Pulse Rate 57 L 58 L Respiratory Rate 53 H Blood Pressure 121/64 Pulse Oximetry 99 100 Oxygen Delivery Method 01/08/24 16:00 01/08/24 16:30 01/08/24 16:33 Temperature Pulse Rate 58 L Respiratory Rate Blood Pressure 119/65 109/60 Pulse Oximetry 98 Oxygen Delivery Method 01/08/24 16:33 01/08/24 17:00 01/08/24 17:01 Temperature Pulse Rate 56 L 54 L 52 L Respiratory Rate Blood Pressure Pulse Oximetry 99 98 98 Oxygen Delivery Method 01/08/24 17:01 01/08/24 17:30 01/08/24 17:30 Temperature Pulse Rate 57 L Respiratory Rate Blood Pressure 126/62 135/66 Pulse Oximetry 99 Oxygen Delivery Method MDM - GI Bleed Medical Records Attestation: I reviewed the patient's medical records. Lab Data Attestation: I reviewed the patient's lab results. 01/08/24 16:45 01/08/24 13:58 Labs: Lab Results 01/08/24 01/08/24 01/08/24 Range/Units 13:58 14:41 16:45 WBC 4.9 4.5 (4.5-11.0) X10^3/uL RBC 3.98 L 3.70 L (4.0-5.2) X10^6/uL Hgb 10.3 L 9.5 L (12.0-16.0) g/dL Hct 32.2 L 30.1 L (36-46) % MCV 81.0 81.3 (80-100) fL MCH 25.9 L 25.7 L (26-34) PG MCHC 32.1 31.7 (30-36) % RDW 18.2 H 17.9 H (11.6-14.8) % Plt Count 111 L 100 L (150-400) X10^3/uL Neut % (Auto) 68.6 64.1 (50-75) % Lymph % (Auto) 20.2 L 22.9 L (25-40) % [place] % (Auto) 8.9 10.2 (3-14) % Eos % (Auto) 1.8 L 2.3 (2-4) % Baso % (Auto) 0.5 0.5 (0-2) % Neut # (Auto) 3400 2900 (6895-4350) /uL Lymph # (Auto) 1000 L 1000 L (4431-3111) /uL [place] # (Auto) 400 500 (0-900) /uL Eos # (Auto) 100 100 (0-450) /uL Baso # (Auto) 0 0 (0-100) /uL Sodium 142 (137-145) mmol/L Potassium 3.6 (3.4-5.1) mmol/L Chloride 107 (98-107) mmol/L Carbon Dioxide 28 (22-32) mmol/L BUN 18 H (7-17) mg/dL Creatinine 0.74 (0.52-1.04) mg/dL Estimated GFR > 60 (>60) mL/min BUN/Creatinine Ratio 24.3 H (6-22) Glucose 120 H (80-110) mg/dL Calcium 9.7 (8.4-10.2) mg/dL Total Bilirubin 1.6 H (0.2-1.3) mg/dL AST 138 H (14-36) IU/L ALT 73 H (<35) IU/L Alkaline Phosphatase 98 (38-126) U/L Ammonia < 9 L (9-30) umol/L Total Protein 8.0 (6.3-8.2) g/dL Albumin 3.8 (3.5-5.0) g/dL Globulin 4.2 H (1.7-4.1) g/dL Albumin/Globulin Ratio 0.9 L (1.0-2.8) Lipase 474 H (23-300) U/L Ethyl Alcohol < 10 ( - 10) mg/dL Imaging Data Chest x-ray: Radiologist's Impression: PROCEDURE: XR CHEST 1V INDICATIONS: SOB TECHNIQUE: One view of the chest was acquired. COMPARISON: [facility], CR, XR CHEST 1V, 08/07/2023, 23:06. [facility], CR, XR CHEST 1V, 01/19/2022, 12:09. FINDINGS: Surgical changes and devices: None. Lungs and pleura: Lungs are clear. No pleural effusions or pneumothorax. Mediastinum: Mediastinal contours appear normal. Heart size is normal. Bones and chest wall: No suspicious bony lesions. Overlying soft tissues appear unremarkable. IMPRESSION: No acute cardiopulmonary abnormality is seen. ECG Data Attestation: I personally reviewed and interpreted this ECG as follows: Interpretation: Sinus rhythm Ventricular rate is 66 Low voltage Normal axis No ST T wave changes MDM Narrative Medical decision making narrative: Patient is well-known to myself. She did seem to calm down after the Ativan. She was alert and oriented but is the certainly not the same as what I have seen her in the fast. She was slow to answer questions. Her LFTs are only slightly elevated today. Unremarkable ammonia. She did take Dilaudid yesterday and today for the 1st time. This is prescribed by her primary doctor. She was also taking baclofen once again. Her alcohol level was negative. Her hemoglobin hematocrit have dropped slightly but not to the point that would require any blood transfusions. We have dealt with these issues in the past and multiple conversations with GI if stated that there was no intervention that can be done as she has had multiple banding of her varices. I do feel patient would benefit from admission to the hospital for a period of observation. Potentially her symptoms are caused by polypharmacy. Discussed the case with Dr. Monahan the hospitalist on-call who will admit. Patient and family were at bedside expressed understanding and agreement with plan. Discharge Plan Departure Patient Disposition: Admitted as Observation Clinical Impression: Medication adverse effect, Cirrhosis, GI bleed Admit Date/Time: 01/08/24 17:41 Admit Provider: Iftikhar Monahan
[2024-01-08 14:08] LABS: Add Manual Diff / Slide Review NO; Basophils Absolute Auto 0 /uL (0-100); Basophils Percent Auto 0.5 % (0-2); Eosinophils Absolute Auto 100 /uL (0-450); Eosinophils Percent Auto 1.8 % (2-4); Hematocrit 32.2 % (36-46); Hemoglobin 10.3 g/dL (12.0-16.0); Lymphocytes Absolute Auto 1000 /uL (1100-4500); Lymphocytes Percent Auto 20.2 % (25-40); Mean Corpuscular HGB Conc 32.1 % (30-36); Mean Corpuscular Hemoglobin 25.9 PG (26-34); Monocytes Absolute Auto 400 /uL (0-900); Monocytes Percent Auto 8.9 % (3-14); Neutrophils Absolute Auto 3400 /uL (1500-7000); Neutrophils Percent Auto 68.6 % (50-75); Platelet Count 111 X10^3/uL (150-400); Red Blood Cell Count 3.98 X10^6/uL (4.0-5.2); Red Cell Distribution Width 18.2 % (11.6-14.8); White Blood Cell Count 4.9 X10^3/uL (4.5-11.0)
[2024-01-08] MEDS: LORazepam 2 MG/ML INJ 1 MG IV (14:20)
[2024-01-08 14:27] LABS: Alanine Aminotransferase 73 IU/L (<35); Albumin 3.8 g/dL (3.5-5.0); Albumin Globulin Ratio 0.9 (1.0-2.8); Alkaline Phosphatase 98 U/L (38-126); Aspartate Aminotransferase 138 IU/L (14-36); BUN Creatinine Ratio 24.3 (6-22); Bilirubin Total 1.6 mg/dL (0.2-1.3); Blood Urea Nitrogen 18 mg/dL (7-17); Calcium 9.7 mg/dL (8.4-10.2); Carbon Dioxide 28 mmol/L (22-32); Chloride 107 mmol/L (98-107); Estimated Glomerular Filt Rate > 60 mL/min (>60); Ethanol (ETOH) < 10 mg/dL; Globulin 4.2 g/dL (1.7-4.1); Glucose 120 mg/dL (80-110); HEMOLYSIS < 15 (0-50); Lipase 474 U/L (23-300); Potassium 3.6 mmol/L (3.4-5.1); Sodium 142 mmol/L (137-145)
--- NOTE | 2024-01-08 14:50 | DI.RAD.S_ITS ---
PROCEDURE: XR CHEST 1V INDICATIONS: SOB TECHNIQUE: One view of the chest was acquired. COMPARISON: [facility], , XR CHEST 1V, 08/07/2023, 23:06. [facility], CR, XR CHEST 1V, 01/19/2022, 12:09. FINDINGS: Surgical changes and devices: None. Lungs and pleura: Lungs are clear. No pleural effusions or pneumothorax. Mediastinum: Mediastinal contours appear normal. Heart size is normal. Bones and chest wall: No suspicious bony lesions. Overlying soft tissues appear unremarkable. IMPRESSION: No acute cardiopulmonary abnormality is seen. Dictated by: Lance Avila M.D. on 01/08/2024 at 15:47 Approved by: Lance Avila M.D. on 01/08/2024 at 15:47
[2024-01-08] MEDS: ONDANSETRON 4 MG/2 ML INJ IV ×2 (14:54→23:41)
[2024-01-08 14:58] LABS: Ammonia (NH3) < 9 umol/L (9-30)
--- NOTE | 2024-01-08 15:03 | EKG_ITS ---
[address] [address] Test Date: 2024-01-08 Pat Name: Kristen Castle Department: Room: Gender: Female [employer]: LESLY : 1960 Requested By: Order Number: [id number] Reading MD: Iftikhar Monahan Measurements Intervals [place] Rate: 66 P: 16 NC: 146 QRS: 14 QRSD: 68 T: 44 QT: 464 QTc: 486 Interpretive Statements Undetermined rhythm Low voltage QRS Electronically Signed On 01-10-2024 17:04:43 PDT by Iftikhar Monahan
[2024-01-08 17:01] LABS: Add Manual Diff / Slide Review NO; Basophils Absolute Auto 0 /uL (0-100); Basophils Percent Auto 0.5 % (0-2); Eosinophils Absolute Auto 100 /uL (0-450); Eosinophils Percent Auto 2.3 % (2-4); Hematocrit 30.1 % (36-46); Hemoglobin 9.5 g/dL (12.0-16.0); Lymphocytes Absolute Auto 1000 /uL (1100-4500); Lymphocytes Percent Auto 22.9 % (25-40); Mean Corpuscular HGB Conc 31.7 % (30-36); Mean Corpuscular Hemoglobin 25.7 PG (26-34); Mean Corpuscular Volume 81.3 fL (80-100); Monocytes Absolute Auto 500 /uL (0-900); Monocytes Percent Auto 10.2 % (3-14); Neutrophils Absolute Auto 2900 /uL (1500-7000); Neutrophils Percent Auto 64.1 % (50-75); Platelet Count 100 X10^3/uL (150-400); Red Cell Distribution Width 17.9 % (11.6-14.8); White Blood Cell Count 4.5 X10^3/uL (4.5-11.0)
--- NOTE | 2024-01-08 17:41 | PM.HP.1 ---
History of Present Illness History of Present Illness Date Patient Seen: 01/08/24 Chief complaint: GI Bleed Narrative: AMS, started on Dilaudid yesterday. Also takes Baclofen. Intermittent hematemesis which is chronic and said to be normal for her. Emergency physician narrative: 64-year-old female. Has a history of end-stage renal disease. Has a history of esophageal varices and hemorrhoids. Is followed by GI. Has had episodes in the past where she was had GI bleeds requiring blood transfusions. She was admitted to the hospital recently for non alcohol related issues where she did receive blood transfusion. She was here for evaluation today because of 1 episode of vomiting blood and also blood per rectum. She denies abdominal pain, shortness of breath, chest pain, headache. She states she has not been drinking any alcohol. Her last admission hospital was secondary to concern for baclofen withdrawal. She denies any other illicit drugs. S: Patient is confused. History is obtained with her mother and a family member at the bedside. The patient and family can confirm that she started Dilaudid tablets with the 1st time yesterday evening at 6:00 p.m.. She was more confused this morning. The patient has a normal ammonia in the emergency department and noncompliant with her lactulose and rifaximin. The patient denies gross hematemesis or gross rectal bleeding. She takes baclofen at half of her dose prior to the last admission. It was decreased from 20-10 mg q.4 hours. She takes this as needed for back spasms and notes that this is a fairly critical drug for her to tolerate her pain. She is having good pain currently. She denies recent fevers, or chills. Her hemoglobin was stable in the emergency department. FORMERLY [facility], [facility] Medical History Multilevel spondylosis Back pain Alcoholic cirrhosis GERD (gastroesophageal reflux disease) Pancytopenia Thrombocytopenia Anemia due to blood loss, acute Bleeding internal hemorrhoids Pancreatic lesion (~04/18/23) Weakness of left upper extremity Stroke Anemia, macrocytic Anemia, blood loss Alcohol use disorder, severe, in early remission Hemorrhoids, internal Depression Shortness of breath Hypercalcemia Weight gain Ascites due to alcoholic cirrhosis SBO (small bowel obstruction) Pancreatitis Intermittent palpitations (04/2019) History of blood transfusion (10/2015) Coagulation disorder (2012) Hypothyroidism Hypertension History of heavy periods (2014) Ovarian cyst (2012) Painful menstrual periods (2012) Measles Mumps Chicken pox Eczema (2014) Psoriasis (2014) PTSD (post-traumatic stress disorder) (1999) Anxiety EV (esophageal varices) (10/2015) Portal hypertensive gastropathy (05/2015) Nonalcoholic fatty liver disease GI bleeding (2015) Cirrhosis (2012) Cardiac arrhythmia History of alcohol abuse (12/27/15) Surgical History H/O bilateral oophorectomy History of appendectomy History of inguinal hernia repair History of cholecystectomy History of esophagogastroduodenoscopy (EGD) (05/2015) Status post laparoscopic supracervical hysterectomy (08/25/16) Status post hysteroscopy (06/17/11) Status post hernia repair Status post appendectomy History of esophagogastroduodenoscopy (EGD) (01/2009) Status post colonoscopy (01/2009) Family History Grandfather Heart disease [place] (myocardial infarction) Grandmother Alcoholism Father No problems noted. Mother No problems noted. Grandfather Heart disease Grandmother Colon cancer Brother No problems noted. Social History household members: family Smoking Status: Never smoker alcohol intake: current Meds Home Medications and Allergies Home Medications Medication Instructions Recorded Confirmed Type lactulose 10 gram/15 mL oral 15 - 30 ml PO DAILY PRN 10/16/22 01/07/24 History solution constipation clobetasol 0.05 % topical ointment 1 applic topical QAM AND QPM #30 10/20/22 01/07/24 Rx grams levothyroxine 100 mcg capsule 100 mcg PO DAILY #90 caps 10/20/22 01/07/24 Rx vit,calcium no.40-iron 1 tab PO DAILY #90 tabs 04/16/23 01/07/24 Rx fum 27 mg iron-folate no.1 1 mg tablet rifaximin 550 mg tablet (Xifaxan) 550 mg PO BID 06/16/23 01/07/24 History spironolactone 50 mg tablet 50 mg PO DAILY #90 tabs 06/30/23 01/07/24 Rx furosemide 20 mg tablet 40 mg (2 x 20 mg) PO QAM #60 tabs 10/07/23 01/07/24 Rx liothyronine 5 mcg tablet 10 mcg (2 x 5 mcg) PO DAILY #180 10/14/23 01/07/24 Rx tabs nadolol 20 mg tablet 30 mg (1.5 x 20 mg) PO DAILY #135 10/14/23 01/07/24 Rx tabs magnesium oxide 500 mg PO DAILY #30 tabs 10/22/23 01/07/24 Rx potassium chloride 20 mEq 20 meq PO BID #60 tabs 10/22/23 01/07/24 Rx tablet,extended release(part/cryst) (Klor-Con M) pregabalin 75 mg capsule 75 mg PO TID #90 caps 10/22/23 01/07/24 Rx lorazepam 1 mg tablet 1 mg PO DAILY PRN anxiety #90 tabs 10/26/23 01/07/24 Rx baclofen 20 mg tablet See Rx Instructions .Route 01/07/24 01/07/24 Rx .COMPLEX #1 tab hydromorphone 2 mg tablet 2 mg PO Q4-6H PRN pain #40 tabs 01/07/24 01/07/24 Rx methocarbamol 750 mg tablet 750 mg PO TID PRN Muscle spasms 01/07/24 01/07/24 Rx #60 tabs Allergies Allergy/AdvReac Type Severity Reaction Status Date / Time doxepin Allergy Intermediate ITCHING Verified 01/08/24 14:03 Review of Systems Review of Systems Narrative: Review of systems is difficult to obtain due to her altered mental status. She does manage her own medications and her mother wonders about dosages and compliance. Exam Vital Signs (past 8 hours): - 01/08/24 13:35 01/08/24 13:36 01/08/24 13:38 Temperature 98.6 F Pulse Rate 61 59 L Respiratory Rate 26 H Blood Pressure 131/69 131/69 Pulse Oximetry 99 100 Oxygen Delivery Method Room Air 01/08/24 14:00 01/08/24 14:00 01/08/24 14:30 Temperature Pulse Rate 65 Respiratory Rate Blood Pressure 125/60 130/65 Pulse Oximetry 98 Oxygen Delivery Method 01/08/24 14:30 01/08/24 15:00 01/08/24 15:00 Temperature Pulse Rate 63 63 Respiratory Rate 53 H Blood Pressure 114/59 L Pulse Oximetry 92 Oxygen Delivery Method 01/08/24 15:30 01/08/24 15:30 01/08/24 16:00 Temperature Pulse Rate 57 L 58 L Respiratory Rate 53 H Blood Pressure 121/64 Pulse Oximetry 99 100 Oxygen Delivery Method 01/08/24 16:00 01/08/24 16:30 01/08/24 16:33 Temperature Pulse Rate 58 L Respiratory Rate Blood Pressure 119/65 109/60 Pulse Oximetry 98 Oxygen Delivery Method 01/08/24 16:33 01/08/24 17:00 01/08/24 17:01 Temperature Pulse Rate 56 L 54 L 52 L Respiratory Rate Blood Pressure Pulse Oximetry 99 98 98 Oxygen Delivery Method 01/08/24 17:01 01/08/24 17:30 01/08/24 17:30 Temperature Pulse Rate 57 L Respiratory Rate Blood Pressure 126/62 135/66 Pulse Oximetry 99 Oxygen Delivery Method Oxygen Delivery Method Room Air Narrative Exam Narrative: NAD, alert and oriented, fluent speech, mostly calm with intermittent episodes of anxiety. The patient is somewhat confused and can not recall all of the events of the day or yesterday. She does know where she was. Normocephalic skull, EOMI, anicteric sclera, symmetric pupils. Oropharynx unremarkable, no droop. Neck supple, midline trachea, no adenopathy. Lungs clear, normal rate and effort. Heart regular, no murmur gallop or rub. Abdomen is soft, non distended and non tender. Extremities are free of edema. Skin is free of rash or lesions. Joints are not swollen or deformed. Judgment appears to be abnormal. There is no tremor or overt jaundice. Objective Imaging Chest x-ray: Radiologist's impression: No acute cardiopulmonary abnormality is seen. Labs 01/08/24 16:45 01/08/24 13:58 Labs: Laboratory Results - last 24 hr 01/08/24 01/08/24 01/08/24 13:58 14:41 16:45 WBC 4.9 4.5 RBC 3.98 L 3.70 L Hgb 10.3 L 9.5 L Hct 32.2 L 30.1 L MCV 81.0 81.3 MCH 25.9 L 25.7 L MCHC 32.1 31.7 RDW 18.2 H 17.9 H Plt Count 111 L 100 L Neut % (Auto) 68.6 64.1 Lymph % (Auto) 20.2 L 22.9 L [place] % (Auto) 8.9 10.2 Eos % (Auto) 1.8 L 2.3 Baso % (Auto) 0.5 0.5 Neut # (Auto) 3400 2900 Lymph # (Auto) 1000 L 1000 L [place] # (Auto) 400 500 Eos # (Auto) 100 100 Baso # (Auto) 0 0 Sodium 142 Potassium 3.6 Chloride 107 Carbon Dioxide 28 BUN 18 H Creatinine 0.74 Estimated GFR > 60 BUN/Creatinine Ratio 24.3 H Glucose 120 H Calcium 9.7 Total Bilirubin 1.6 H AST 138 H ALT 73 H Alkaline Phosphatase 98 Ammonia < 9 L Total Protein 8.0 Albumin 3.8 Globulin 4.2 H Albumin/Globulin Ratio 0.9 L Lipase 474 H Ethyl Alcohol < 10 Assessment & Plan Assessment & Plan narrative: 1. Acute encephalopathy with normal ammonia. Concern is for adverse effects of Dilaudid, which is metabolized in the liver. Present on admission and active. The other concern is how much baclofen she is taking and how often. 2. Acute on chronic hematemesis, present on admission and active. 3. Liver induced cirrhosis and portal hypertension with known esophageal varices, present on admission and active. 4. Recent admission for baclofen withdrawal, present on admission and active. 5. Polypharmacy, present on admission and active. 6. Chronic back pain, present on admission and active. 7. Chronic pancreatitis, stable. 8. Anxiety and depression, stable. 9. Hypothyroidism, present on admission and stable. Plan: -hold Dilaudid, continue baclofen at 10 mg q.4 hours as needed. -resume lactulose and rifaximin. -hold benzodiazepines for this evening. -monitor mental status. -monitor for clinical evidence of GI bleeding, and hemoglobin Q 6 hours. She was full resuscitation. Proxy decision maker is mother. She was admitted to observation status, anticipate and when 1 night necessity for hospital services. Time Spent With Patient Time with patient: 30 to 49 minutes with 50% spent counseling/coordinating care Quality MIPS - Admit The patient?s Advance Care plan is not present because I confirmed today that the patient does not wish or was not able to name a surrogate decision maker or provide an Advance Care Plan.: Yes MIPS - Meds 'Current medications' to include all prescriptions, [id number] products, herbals, cannabis/cannabidiol products, and vitamin/mineral/dietary (nutritional) supplements. I have utilized all available resources to obtain, update, or review the patient?s current medications. [If Yes, STOP here]: Yes
[2024-01-08] MEDS: MORPHINE 4 MG/ML INJ 2 MG IV (20:09)
[2024-01-08] MEDS: BACLOFEN 10 MG TABLET 5 MG PO (20:10)
[2024-01-08 22:59] LABS: Add Manual Diff / Slide Review NO; Basophils Absolute Auto 0 /uL (0-100); Basophils Percent Auto 0.7 % (0-2); Eosinophils Absolute Auto 200 /uL (0-450); Eosinophils Percent Auto 3.3 % (2-4); Hematocrit 31.3 % (36-46); Hemoglobin 10.1 g/dL (12.0-16.0); Lymphocytes Absolute Auto 1400 /uL (1100-4500); Lymphocytes Percent Auto 27.6 % (25-40); Mean Corpuscular HGB Conc 32.3 % (30-36); Mean Corpuscular Volume 80.5 fL (80-100); Monocytes Absolute Auto 600 /uL (0-900); Monocytes Percent Auto 11.2 % (3-14); Neutrophils Absolute Auto 3000 /uL (1500-7000); Neutrophils Percent Auto 57.2 % (50-75); Platelet Count 103 X10^3/uL (150-400); Red Blood Cell Count 3.88 X10^6/uL (4.0-5.2); Red Cell Distribution Width 18.4 % (11.6-14.8); White Blood Cell Count 5.2 X10^3/uL (4.5-11.0)
--- NOTE | 2024-01-08 23:55 | PC.ADMIT ---
[email or web address] Admission Note: The patient,Kristen Castle,64 y/o, was given written information regarding hospital policies, unit procedures and contact persons. Patient's smoking status: Never smoker. Vital Signs - 8 hr 01/08/24 16:00 01/08/24 16:00 01/08/24 16:30 Temperature Pulse Rate 58 L 58 L Respiratory Rate Blood Pressure 119/65 Pulse Oximetry 100 98 Oxygen Delivery Method Oxygen Flow Rate 01/08/24 16:33 01/08/24 16:33 01/08/24 17:00 Temperature Pulse Rate 56 L 54 L Respiratory Rate Blood Pressure 109/60 Pulse Oximetry 99 98 Oxygen Delivery Method Oxygen Flow Rate 01/08/24 17:01 01/08/24 17:01 01/08/24 17:30 Temperature Pulse Rate 52 L 57 L Respiratory Rate Blood Pressure 126/62 Pulse Oximetry 98 99 Oxygen Delivery Method Oxygen Flow Rate 01/08/24 17:30 01/08/24 18:00 01/08/24 18:00 Temperature Pulse Rate 56 L Respiratory Rate Blood Pressure 135/66 131/61 Pulse Oximetry 98 Oxygen Delivery Method Oxygen Flow Rate 01/08/24 18:11 01/08/24 18:11 01/08/24 18:30 Temperature Pulse Rate 58 L 54 L Respiratory Rate 13 Blood Pressure 124/64 Pulse Oximetry 98 Oxygen Delivery Method Oxygen Flow Rate 01/08/24 18:30 01/08/24 20:00 01/08/24 20:30 Temperature 97.2 F L Pulse Rate 52 L Respiratory Rate 18 Blood Pressure 126/68 115/61 Pulse Oximetry 95 95 Oxygen Delivery Method Room Air Oxygen Flow Rate 1 Patient admitted to [facility] room 222 at 1900. Oriented to person, place, month, year, and situation. Forgetful to some events. Able to answer admission questions, medication rec. done, she knows what medications she takes. Ambulated into BR with SBA, weak and slightly unsteady. VSS. Medicated with 2mg IV morphine and 5mg Baclofen. Hand-off to Grace MCMILLAN.
--- NOTE | 2024-01-09 01:33 | CM.MNRNOTE ---
C/O nausea, insomnia & anxiety, states I can't sleep message sent to Dr. Valente awaiting response. Will monitor & continue plan of care.
--- NOTE | 2024-01-09 02:58 | PC.NURSE ---
Checked patient she's sleeping now, will monitor.
[2024-01-09] MEDS: LEVOTHYROXINE 100 MCG TABLET PO (05:54)
[2024-01-09 05:55] LABS: Alanine Aminotransferase 96 IU/L (<35); Albumin 3.4 g/dL (3.5-5.0); Albumin Globulin Ratio 0.9 (1.0-2.8); Alkaline Phosphatase 95 U/L (38-126); Aspartate Aminotransferase 182 IU/L (14-36); BUN Creatinine Ratio 21.6 (6-22); Bilirubin Total 1.5 mg/dL (0.2-1.3); Blood Urea Nitrogen 16 mg/dL (7-17); Calcium 9.1 mg/dL (8.4-10.2); Carbon Dioxide 30 mmol/L (22-32); Chloride 105 mmol/L (98-107); Estimated Glomerular Filt Rate > 60 mL/min (>60); Glucose 93 mg/dL (80-110); HEMOLYSIS < 15 (0-50); Potassium 3.2 mmol/L (3.4-5.1); Sodium 140 mmol/L (137-145); Total Protein 7.4 g/dL (6.3-8.2)
[2024-01-09 07:00] VITALS: O2SAT 100
[2024-01-09 07:21] VITALS: O2SAT 95
[2024-01-09 08:00] VITALS: BP 114/65; PULSE 59; RESP 16; TEMP 36.2; O2SAT 100
[2024-01-09] MEDS: POTASSIUM CHLORIDE 20 MEQ TAB 40 MEQ PO ×2 (08:17→14:00)
[2024-01-09] MEDS: LACTULOSE 20 GM/30 ML SOLUTION 15 GM PO (08:18)
[2024-01-09] MEDS: SODIUM CHLORIDE 0.9% FLUSH 10 ML IV ×2 (08:19→21:12)
[2024-01-09] MEDS: ONDANSETRON 4 MG/2 ML INJ IV (08:22)
--- NOTE | 2024-01-09 09:01 | P.PN_ITS ---
Subjective Subjective Interval history: Slept well, no pain today. She feels like her mental status is improving but still is having some confusion. Exam Vital Signs (past 8 hours): - 01/09/24 07:21 01/09/24 08:00 Temperature 97.2 F L Pulse Rate 59 L Respiratory Rate 16 Blood Pressure 114/65 Pulse Oximetry 95 100 Oxygen Delivery Method Nasal Cannula Oxygen Flow Rate 1 1 Oxygen Delivery Method Nasal Cannula Oxygen Flow Rate 1 Narrative Exam Narrative: NAD, alert and oriented to person and place but not to month. Does know year.. Fluent speech. Lungs are clear, normal rate and effort. Heart is regular, no murmur gallop or rub. Abdomen is soft, non distended. Extremities are free of edema. Objective Labs 01/08/24 22:49 01/09/24 05:12 Labs: Laboratory Results - last 24 hr 01/08/24 01/08/24 01/08/24 13:58 14:41 16:45 WBC 4.9 4.5 RBC 3.98 L 3.70 L Hgb 10.3 L 9.5 L Hct 32.2 L 30.1 L MCV 81.0 81.3 MCH 25.9 L 25.7 L MCHC 32.1 31.7 RDW 18.2 H 17.9 H Plt Count 111 L 100 L Neut % (Auto) 68.6 64.1 Lymph % (Auto) 20.2 L 22.9 L [place] % (Auto) 8.9 10.2 Eos % (Auto) 1.8 L 2.3 Baso % (Auto) 0.5 0.5 Neut # (Auto) 3400 2900 Lymph # (Auto) 1000 L 1000 L [place] # (Auto) 400 500 Eos # (Auto) 100 100 Baso # (Auto) 0 0 Sodium 142 Potassium 3.6 Chloride 107 Carbon Dioxide 28 BUN 18 H Creatinine 0.74 Estimated GFR > 60 BUN/Creatinine Ratio 24.3 H Glucose 120 H Calcium 9.7 Total Bilirubin 1.6 H AST 138 H ALT 73 H Alkaline Phosphatase 98 Ammonia < 9 L Total Protein 8.0 Albumin 3.8 Globulin 4.2 H Albumin/Globulin Ratio 0.9 L Lipase 474 H Ethyl Alcohol < 10 01/08/24 01/09/24 22:49 05:12 WBC 5.2 RBC 3.88 L Hgb 10.1 L Hct 31.3 L MCV 80.5 MCH 26.0 MCHC 32.3 RDW 18.4 H Plt Count 103 L Neut % (Auto) 57.2 Lymph % (Auto) 27.6 [place] % (Auto) 11.2 Eos % (Auto) 3.3 Baso % (Auto) 0.7 Neut # (Auto) 3000 Lymph # (Auto) 1400 [place] # (Auto) 600 Eos # (Auto) 200 Baso # (Auto) 0 Sodium 140 Potassium 3.2 L Chloride 105 Carbon Dioxide 30 BUN 16 Creatinine 0.74 Estimated GFR > 60 BUN/Creatinine Ratio 21.6 Glucose 93 Calcium 9.1 Total Bilirubin 1.5 H AST 182 H ALT 96 H Alkaline Phosphatase 95 Ammonia Total Protein 7.4 Albumin 3.4 L Globulin 4.0 Albumin/Globulin Ratio 0.9 L Lipase Ethyl Alcohol [facility] Medical History Multilevel spondylosis Back pain Alcoholic cirrhosis GERD (gastroesophageal reflux disease) Pancytopenia Thrombocytopenia Anemia due to blood loss, acute Bleeding internal hemorrhoids Pancreatic lesion (~04/18/23) Weakness of left upper extremity Stroke Anemia, macrocytic Anemia, blood loss Alcohol use disorder, severe, in early remission Hemorrhoids, internal Depression Shortness of breath Hypercalcemia Weight gain Ascites due to alcoholic cirrhosis SBO (small bowel obstruction) Pancreatitis Intermittent palpitations (04/2019) History of blood transfusion (10/2015) Coagulation disorder (2012) Hypothyroidism Hypertension History of heavy periods (2014) Ovarian cyst (2012) Painful menstrual periods (2012) Measles Mumps Chicken pox Eczema (2014) Psoriasis (2014) PTSD (post-traumatic stress disorder) (1999) Anxiety EV (esophageal varices) (10/2015) Portal hypertensive gastropathy (05/2015) Nonalcoholic fatty liver disease GI bleeding (2015) Cirrhosis (2012) Cardiac arrhythmia History of alcohol abuse (12/27/15) Surgical History H/O bilateral oophorectomy History of appendectomy History of inguinal hernia repair History of cholecystectomy History of esophagogastroduodenoscopy (EGD) (05/2015) Status post laparoscopic supracervical hysterectomy (08/25/16) Status post hysteroscopy (06/17/11) Status post hernia repair Status post appendectomy History of esophagogastroduodenoscopy (EGD) (01/2009) Status post colonoscopy (01/2009) Family History Grandfather Heart disease [place] (myocardial infarction) Grandmother Alcoholism Father No problems noted. Mother No problems noted. Grandfather Heart disease Grandmother Colon cancer Brother No problems noted. Social History household members: family Smoking Status: Never smoker alcohol intake: current Assessment & Plan Assessment & Plan narrative: 1. Acute encephalopathy with normal ammonia. Concern is for adverse effects of Dilaudid, which is metabolized in the liver. Present on admission and improving. The other concern is how much baclofen she is taking and how often. 2. Acute on chronic hematemesis, present on admission and active. Hg stable. 3. Liver induced cirrhosis and portal hypertension with known esophageal varices, present on admission and active. 4. Recent admission for baclofen withdrawal, present on admission and active. 5. Polypharmacy, present on admission and active. 6. Chronic back pain, present on admission and active. 7. Chronic pancreatitis, stable. 8. Anxiety and depression, stable. 9. Hypothyroidism, present on admission and stable. Plan: -continue to hold Dilaudid, continue baclofen at 10 mg q.4 hours as needed. -continue lactulose and rifaximin. -hold benzodiazepines today. -monitor mental status. -monitor for clinical evidence of GI bleeding, and hemoglobin Q 6 hours. She requires another night of hospital care to monitor hemoglobin and mental status. She was full resuscitation. Proxy decision maker is mother.
--- NOTE | 2024-01-09 09:13 | CM.DANOTE ---
DCP: Case received, EMR reviewed and met with patient. Introduced self and role. Was able to obtain information regarding patient's baseline activity level prior to hospitalization, as well as her current living situation. DCP assessment completed with information currently available. Patient is a 64 year old female who admitted yesterday evening to the care of the hospitalist team. PCP: HARJEET John. Payer: confirmed: [facility] Healthy Options/Medicaid. Patient came to the hospital via ambulance secondary to vomiting blood, and rectal bleeding. Notes indicate that patient has history of GI bleeds, alcohol abuse, and end stage renal disease. Patient also has history of cirrhosis. Patient came in with altered mental status as well. There was concerns that patient may have symptoms caused by polypharmacy. Patient was admitted with acute encephalopathy with normal ammonia. Notes indicate from hospitalist that patient most likely will be here another night to ensure that her mental status improves. Met with patient in her room. She was sitting up in bed, pleasant, and smiling. Stated, I think that I talked to you yesterday. Let her know that this is the first time that this DC Sheet Metal Erector had met her. Patient was able to answer some questions. Confirmed that she resides here in [place] with her parents. She indicated that she drives, and is independent, loves gardening. She is not interested in any home health services, would also need to be home bound. P: DCP to continue to follow for any needs. Patient should be able to go home when she is deemed medically stable. Bethanie Tuttle RN/Radio Communications Superintendent Discharge Planning/Care Management Advanced directive, confirm from FAMILY Start: 01/08/24 19:50 Freq: Q24H Status: Active Protocol: Document 01/08/24 20:30 MP (Rec: 01/08/24 21:51 MP [id number]) Co-signed By Lani Jackson RN Advance Directive, confirm on record Time 21:46 Person contacted pt. Copy received No CM Discharge Assessment Start: 01/09/24 09:11 Freq: Status: Active Protocol: Document 01/09/24 09:12 VM (Rec: 01/09/24 09:13 [id number]) Discharge Planning Assessment Assigned Flat Folding Machine Operator Bethanie Tuttle RN/Radio Communications Superintendent Advance Directives? No Advance Directives on File No History Provided By Patient,Medical Record Has Patient been admitted in last 30 No days? Prior Living Arrangements House Household Members family Type of transporation used prior to Drives own vehicle admit Independent with ADL's Yes Is patient alert and oriented? Yes Caregiver for Another No Barriers to Discharge No Comment Patient seemed alert during conversation. Does have substance abuse history. Discharge Plan Home Transportation Arrangement Family or friends Referrals Initiated None needed Whiteboard Updated in Patient Room with Yes name and ext. # of Flat Folding Machine Operator Review Status In Process Next Review Type Continued Stay Review
[2024-01-09] MEDS: BACLOFEN 10 MG TABLET 5 MG PO (12:00)
--- NOTE | 2024-01-09 12:16 | DI.MRI.S_ITS ---
PROCEDURE: MR HEAD/BRAIN WO CON INDICATIONS: AMS TECHNIQUE: Noncontrast axial T1 spin echo, axial T2 fast spin echo, sagittal and axial FLAIR, coronal T2 fast spin echo, axial gradient echo, axial diffusion and ADC through the brain. COMPARISON: [facility], CT, CT HEAD/BRAIN WO CON, 12/31/2023, 22:25. FINDINGS: Image quality: Diagnostic CSF spaces: Basal cisterns are patent. Lateral ventricles are symmetric. Volume: Volume loss. Periventricular white matter signal abnormality most commonly seen with small vessel disease. These findings are mild Brain: No acute infarct or hematoma Craniofacial structures: No significant paranasal sinus opacity where visualized IMPRESSION: No acute hematoma or infarct. Dictated by: Valentin Farias M.D. on 01/09/2024 at 14:00 Approved by: Valentin Farias M.D. on 01/09/2024 at 14:01
[2024-01-09] MEDS: LACTULOSE 20 GM/30 ML SOLUTION 30 GM PO (15:44)
[2024-01-09] MEDS: RIFAXIMIN 200 MG TABLET 400 MG PO ×2 (15:45→21:12)
[2024-01-09 19:00] VITALS: BP 109/67; PULSE 70; RESP 17; TEMP 36.4; O2SAT 98
--- NOTE | 2024-01-10 04:21 | PC.NURSE ---
Patient had minimal sleep overnight. When asked if she wanted something to help her sleep, she refused. Denied pain when asked. States frequently I forgot to tell you what I forgot but cannot remember what it was she forgot. Patient able to state name, age, , correct month and year, correct location. Patient in no apparent distress.
[2024-01-10 05:04] LABS: Alanine Aminotransferase 78 IU/L (<35); Albumin 3.4 g/dL (3.5-5.0); Albumin Globulin Ratio 0.9 (1.0-2.8); Alkaline Phosphatase 102 U/L (38-126); Aspartate Aminotransferase 128 IU/L (14-36); BUN Creatinine Ratio 20.5 (6-22); Bilirubin Total 1.4 mg/dL (0.2-1.3); Blood Urea Nitrogen 15 mg/dL (7-17); Calcium 9.4 mg/dL (8.4-10.2); Carbon Dioxide 24 mmol/L (22-32); Chloride 109 mmol/L (98-107); Estimated Glomerular Filt Rate > 60 mL/min (>60); Glucose 112 mg/dL (80-110); HEMOLYSIS < 15 (0-50); Potassium 4.3 mmol/L (3.4-5.1); Sodium 138 mmol/L (137-145); Total Protein 7.4 g/dL (6.3-8.2)
[2024-01-10] MEDS: LIOTHYRONINE 5 MCG TABLET 10 MCG PO (05:53)
[2024-01-10] MEDS: LEVOTHYROXINE 100 MCG TABLET PO (05:53)
[2024-01-10] MEDS: BACLOFEN 10 MG TABLET 5 MG PO (06:53)
[2024-01-10 07:00] VITALS: BP 119/75; PULSE 73; RESP 16; TEMP 36.4; O2SAT 73; O2SAT 99
[2024-01-10] MEDS: POTASSIUM CHLORIDE 20 MEQ TAB PO ×2 (07:56→17:03)
[2024-01-10] MEDS: LORazepam 1 MG TABLET PO (07:56)
[2024-01-10] MEDS: LACTULOSE 20 GM/30 ML SOLUTION 30 GM PO (08:00)
[2024-01-10] MEDS: RIFAXIMIN 200 MG TABLET 400 MG PO ×3 (08:00→21:04)
--- NOTE | 2024-01-10 08:12 | PM.PN.1 ---
Subjective Subjective Interval history: Summary: This patient presented with altered mental status in context of PTSD, recent admission for possible baclofen withdrawal, polypharmacy, and alcohol-induced cirrhosis with no alcohol for about 6 months. She did have a normal ammonia at the time of admission and a negative MRI. She was history of a stroke about 5 months ago. She has had slow improvement of mental status but remains confused in some areas. Her mother is very attentive and notes that she was going to contact the patient's therapist who will have a phone encounter with the patient hopefully in the next day or so. S: Remains confused, a little bit anxious. No chest pain, or dyspnea. Minimal muscle spasms. Exam Vital Signs (past 8 hours): Oxygen Delivery Method Room Air Oxygen Flow Rate 0 Narrative Exam Narrative: NAD, alert and oriented to person and place, and year but not month.. Fluent speech. She is somewhat anxious. Lungs are clear, normal rate and effort. Heart is regular, no murmur gallop or rub. Abdomen is soft, non distended. Extremities are free of edema. Objective Imaging MRI - head: Radiologist's impression: Negative for stroke. Labs 01/08/24 22:49 01/10/24 04:32 Labs: Laboratory Results - last 24 hr 01/10/24 01/10/24 01/10/24 04:32 04:32 04:32 Sodium Cancelled 138 Potassium Cancelled 4.3 Chloride Cancelled Carbon Dioxide BUN Creatinine Estimated GFR BUN/Creatinine Ratio Glucose Calcium Total Bilirubin AST ALT Alkaline Phosphatase Total Protein Albumin Globulin Albumin/Globulin Ratio 01/10/24 01/10/24 01/10/24 04:32 04:32 04:32 Sodium Potassium Chloride 109 H Carbon Dioxide Cancelled 24 BUN Cancelled 15 Creatinine Cancelled Estimated GFR BUN/Creatinine Ratio Glucose Calcium Total Bilirubin AST ALT Alkaline Phosphatase Total Protein Albumin Globulin Albumin/Globulin Ratio 01/10/24 01/10/24 01/10/24 04:32 04:32 04:32 Sodium Potassium Chloride Carbon Dioxide BUN Creatinine 0.73 Estimated GFR Cancelled > 60 BUN/Creatinine Ratio Cancelled 20.5 Glucose Cancelled Calcium Total Bilirubin AST ALT Alkaline Phosphatase Total Protein Albumin Globulin Albumin/Globulin Ratio 01/10/24 01/10/24 04:32 04:32 Sodium Potassium Chloride Carbon Dioxide BUN Creatinine Estimated GFR BUN/Creatinine Ratio Glucose 112 H Calcium Cancelled 9.4 Total Bilirubin 1.4 H AST 128 H ALT 78 H Alkaline Phosphatase 102 Total Protein 7.4 Albumin 3.4 L Globulin 4.0 Albumin/Globulin Ratio 0.9 L ON LICENSE OF [facility] Medical History Multilevel spondylosis Back pain Alcoholic cirrhosis GERD (gastroesophageal reflux disease) Pancytopenia Thrombocytopenia Anemia due to blood loss, acute Bleeding internal hemorrhoids Pancreatic lesion (~04/18/23) Weakness of left upper extremity Stroke Anemia, macrocytic Anemia, blood loss Alcohol use disorder, severe, in early remission Hemorrhoids, internal Depression Shortness of breath Hypercalcemia Weight gain Ascites due to alcoholic cirrhosis SBO (small bowel obstruction) Pancreatitis Intermittent palpitations (04/2019) History of blood transfusion (10/2015) Coagulation disorder (2012) Hypothyroidism Hypertension History of heavy periods (2014) Ovarian cyst (2012) Painful menstrual periods (2012) Measles Mumps Chicken pox Eczema (2014) Psoriasis (2014) PTSD (post-traumatic stress disorder) (1999) Anxiety EV (esophageal varices) (10/2015) Portal hypertensive gastropathy (05/2015) Nonalcoholic fatty liver disease GI bleeding (2015) Cirrhosis (2012) Cardiac arrhythmia History of alcohol abuse (12/27/15) Surgical History H/O bilateral oophorectomy History of appendectomy History of inguinal hernia repair History of cholecystectomy History of esophagogastroduodenoscopy (EGD) (05/2015) Status post laparoscopic supracervical hysterectomy (08/25/16) Status post hysteroscopy (06/17/11) Status post hernia repair Status post appendectomy History of esophagogastroduodenoscopy (EGD) (01/2009) Status post colonoscopy (01/2009) Family History Grandfather Heart disease [place] (myocardial infarction) Grandmother Alcoholism Father No problems noted. Mother No problems noted. Grandfather Heart disease Grandmother Colon cancer Brother No problems noted. Social History household members: family Smoking Status: Never smoker alcohol intake: current Assessment & Plan Assessment & Plan narrative: 1. Acute encephalopathy with normal ammonia. Concern is for adverse effects of Dilaudid, which is metabolized in the liver. Present on admission and improving. The other concern is how much baclofen she is taking and how often. 2. Acute on chronic hematemesis, present on admission and active. Hg stable. 3. Liver induced cirrhosis and portal hypertension with known esophageal varices, present on admission and active. 4. Recent admission for baclofen withdrawal, present on admission and active. 5. Polypharmacy, present on admission and active. 6. Chronic back pain, present on admission and active. 7. Chronic pancreatitis, stable. 8. Anxiety and depression, stable. 9. Hypothyroidism, present on admission and stable. Plan: -continue to hold Dilaudid (p.o. was started the night before her admission), continue baclofen at 10 mg q.4 hours as needed (minimal dosing) -continue lactulose (increased from 15 to 30) and rifaximin. -prn PO Ativan (takes at home). -monitor mental status. -monitor for clinical evidence of GI bleeding, and hemoglobin Q 6 hours. Has been stable. NARA: 01/11 if mental status improves. She requires another night of hospital care to monitor hemoglobin and mental status. She was full resuscitation. Proxy decision maker is mother.
[2024-01-10] MEDS: FUROSEMIDE 40 MG TABLET PO (08:38)
[2024-01-10] MEDS: SPIRONOLACTONE 25 MG TABLET 50 MG PO (08:38)
[2024-01-10] MEDS: SODIUM CHLORIDE 0.9% FLUSH 10 ML IV ×2 (08:39→21:04)
[2024-01-10] MEDS: LORazepam 0.5 MG TABLET PO ×4 (13:03→22:07)
[2024-01-10] MEDS: haloperidoL 5 MG TABLET PO ×2 (17:04→23:33)
--- NOTE | 2024-01-10 17:47 | PC.NURSE ---
Night RN stated pt did not sleep last night and notified because pt was becoming increasingly agitated and impulsive and pt does not have steady gait, high fall risk. Pt is A&Ox4, answers questions correctly and appropriately, but randomly says weird things or trails off conversation into nonsense. put new med orders and this RN administered. Pt's family members have been at bedside with pt all morning and afternoon. Family members reported that pt was becoming more anxious and behavior and emotions were becoming erratic and unable to successfully console or redirect pt. Family member asked for anti anxiety med and this RN notified MD, new order, and this RN administered. When all family members left in the afternoon, Pt became increasing upset and anxious, constantly asking for her mother and this RN kept telling pt that mother went home for the day and needed to take a nap and eat lunch, but that mother would be back later this evening, but pt kept insisting that staff call mom. Eventually pt called mom on her own and float RN assisted with call and reassured pt that she was safe with us and that staff was here to help her. Pt is becoming increasingly impulsive, getting out of bed and coming to nurse's station, trying to wander halls, and staff is having to redirect her and bring her back to room. Pt is no comprehending safety measures at this time. Pt is A&O to self, but doesn't know where she is and why she is here, nor the date. Pt continually requesting to leave to go home, asking for a ride or stating that she will simply walk home. notified of pt's behavior and new med orders added to SEP. This RN administered PO, pt julio well. Pt refusing to eat and still not tired because she is still impulsive and stating she wants to leave and go home. This RN is currently 1:1 with pt as bedside, staff supporting and smelter charger notified. Will continue to monitor and encourage pt to rest.
[2024-01-10] MEDS: MORPHINE 4 MG/ML INJ 2 MG IV ×2 (18:17→23:33)
--- NOTE | 2024-01-10 19:42 | PC.NURSE ---
Pt's family came this evening to visit pt and help her take a shower. Pt has been agitated still and family is reporting to this RN that she is taking that she wants to kill herself, and keeps repeating that she is going to leave and off herself. Mother reported that pt says this frequently at home as well when she is not doing well mentally and hasn't slept like she's been the past 24hrs. Pt's mother also reported that pt has attempted suicide mutiple times before in the past, examples such as slitting her wrists in the bathtub and family finding her in a pool of blood, or pt leaving home out of nowhere and parking car at bridges or cliffs to attempt to jump off. This RN concerned about this information and reported to supercharger mechanic. wood products manufacturer notify kvng ROSE.
[2024-01-10 20:27] VITALS: BP 124/73; PULSE 87; RESP 18; TEMP 36; O2SAT 96
[2024-01-10] MEDS: BACLOFEN 10 MG TABLET PO (21:56)
--- NOTE | 2024-01-11 00:22 | PC.NURSE ---
Since 2054 this RN 1:1 outside pts room with constant visualization of patient. During shift, pt sleeping on and off, playing on phone or ipad, complained of spasms in legs, primary RN made aware and medicated. Patient requesting more medications for sleep and spasms, medicated. Patient needing redirection for sleep throughout this shift. Patient fell asleep around 0000, equal rise and fall of chest visualized.
[2024-01-11] MEDS: LIOTHYRONINE 5 MCG TABLET 10 MCG PO (05:54)
[2024-01-11] MEDS: LEVOTHYROXINE 100 MCG TABLET PO (05:54)
[2024-01-11 07:00] VITALS: O2SAT 96
[2024-01-11] MEDS: haloperidoL 5 MG TABLET PO (08:38)
[2024-01-11] MEDS: FUROSEMIDE 40 MG TABLET PO (08:39)
[2024-01-11] MEDS: LORazepam 0.5 MG TABLET PO (08:39)
[2024-01-11] MEDS: SPIRONOLACTONE 25 MG TABLET 50 MG PO (08:39)
[2024-01-11] MEDS: LACTULOSE 20 GM/30 ML SOLUTION 30 GM PO (08:39)
[2024-01-11] MEDS: PREGABALIN 75 MG CAPSULE PO (08:39)
[2024-01-11] MEDS: POTASSIUM CHLORIDE 20 MEQ TAB PO (08:39)
[2024-01-11] MEDS: RIFAXIMIN 200 MG TABLET 400 MG PO (08:39)
[2024-01-11] MEDS: SODIUM CHLORIDE 0.9% FLUSH 10 ML IV (08:40)
--- NOTE | 2024-01-11 10:22 | PM.DS.1 ---
History of Present Illness History of Present Illness Date Patient Seen: 01/11/24 Time Patient Seen: 10:22 Chief complaint: GI Bleed Narrative: Per admitting provider, NIKKO, started on Dilaudid yesterday. Also takes Baclofen. Intermittent hematemesis which is chronic and said to be normal for her. Emergency physician narrative: 64-year-old female. Has a history of end-stage renal disease. Has a history of esophageal varices and hemorrhoids. Is followed by GI. Has had episodes in the past where she was had GI bleeds requiring blood transfusions. She was admitted to the hospital recently for non alcohol related issues where she did receive blood transfusion. She was here for evaluation today because of 1 episode of vomiting blood and also blood per rectum. She denies abdominal pain, shortness of breath, chest pain, headache. She states she has not been drinking any alcohol. Her last admission hospital was secondary to concern for baclofen withdrawal. She denies any other illicit drugs. S: Patient is confused. History is obtained with her mother and a family member at the bedside. The patient and family can confirm that she started Dilaudid tablets with the 1st time yesterday evening at 6:00 p.m.. She was more confused this morning. The patient has a normal ammonia in the emergency department and noncompliant with her lactulose and rifaximin. The patient denies gross hematemesis or gross rectal bleeding. She takes baclofen at half of her dose prior to the last admission. It was decreased from 20-10 mg q.4 hours. She takes this as needed for back spasms and notes that this is a fairly critical drug for her to tolerate her pain. She is having good pain currently. She denies recent fevers, or chills. Her hemoglobin was stable in the emergency department. Discharge Providers Provider Date of admission: 01/10/24 14:39 Discharge Date: 01/11/24 Primary care physician: HARJEET John Discharge provider: Bharath Fonseca DO Summary Hospital Course Discharge Diagnosis: 1. Acute metabolic encephalopathy, present on admission and improving. 2. Acute non-traumatic rhabdomyolysis, present on admission and resolved. 3. Essential hypertension, present on admission and active. 4. COVID 19 infection (cough), present on admission and active. y. 5. Probable baseline cognitive impairment, present on admission and active. 6. Possible GI bleeding. Hospital Course: 64 F with PMH of cirrhosis with previous PSE, HTN who was admitted with an acute metabolic encephalopathy and possible hematochezia. COVID 19 was positive on admission. She was managed supportively. MRI was negative for any acute infarcts. On the day prior to discharge she had not slept, overnight complained of passive suicidal ideation and was placed on a 1:1 sitter. The following morning her mentation was much improved. She had resolution of and no further evidence of GI bleeding and her h/h remained stable. She was initially recommended for SNF but was moving a bit better and her mentation had much improved and patient's family was able to transport her home. She likely has underlying cognitive impairment though formal evaluation is recommended as an outpatient was well. The etiology for her acute encephalopathy is thought to be multifactorial, likely due to COVID infection, possible GI bleeding, or a toxic component with polypharmacy is possible as well based on past admissions. Time Spent with Patient Time spent: Greater than 30 minutes Exam Vital Signs (past 8 hours): Oxygen Delivery Method Room Air Oxygen Flow Rate 0 Narrative Exam Narrative: NAD, awake and alert. Lungs are clear, normal rate and effort. Heart is regular, no murmur gallop or rub. Abdomen is soft, non distended. Extremities are free of edema. Denies want of self harm today. Objective Labs 01/08/24 22:49 01/10/24 04:32 [facility] Medical History Multilevel spondylosis Back pain Alcoholic cirrhosis GERD (gastroesophageal reflux disease) Pancytopenia Thrombocytopenia Anemia due to blood loss, acute Bleeding internal hemorrhoids Pancreatic lesion (~04/18/23) Weakness of left upper extremity Stroke Anemia, macrocytic Anemia, blood loss Alcohol use disorder, severe, in early remission Hemorrhoids, internal Depression Shortness of breath Hypercalcemia Weight gain Ascites due to alcoholic cirrhosis SBO (small bowel obstruction) Pancreatitis Intermittent palpitations (04/2019) History of blood transfusion (10/2015) Coagulation disorder (2012) Hypothyroidism Hypertension History of heavy periods (2014) Ovarian cyst (2012) Painful menstrual periods (2012) Measles Mumps Chicken pox Eczema (2014) Psoriasis (2014) PTSD (post-traumatic stress disorder) (1999) Anxiety EV (esophageal varices) (10/2015) Portal hypertensive gastropathy (05/2015) Nonalcoholic fatty liver disease GI bleeding (2016) Cirrhosis (2013) Cardiac arrhythmia History of alcohol abuse (12/27/15) Surgical History H/O bilateral oophorectomy History of appendectomy History of inguinal hernia repair History of cholecystectomy History of esophagogastroduodenoscopy (EGD) (05/2015) Status post laparoscopic supracervical hysterectomy (08/25/16) Status post hysteroscopy (06/17/11) Status post hernia repair Status post appendectomy History of esophagogastroduodenoscopy (EGD) (01/2009) Status post colonoscopy (01/2009) Family History Grandfather Heart disease NH (myocardial infarction) Grandmother Alcoholism Father No problems noted. Mother No problems noted. Grandfather Heart disease Grandmother Colon cancer Brother No problems noted. Social History household members: family Smoking Status: Never smoker alcohol intake: current Discharge Plan Discharge Plan Patient Disposition: Home Provider Discharge Comment: You were admitted to the hospital with possible bleeding, hemoglobin was stable. No changes to your home medications are recommended. Please try to follow up with your psychiatrist. Discharge orders & Medications Prescriptions: New levothyroxine [Synthroid] 100 mcg Tablet 100 mcg PO 0600 Qty: 30 0RF baclofen 10 mg Tablet 10 mg PO QID PRN (Reason: MUSCLE SPASM) Qty: 20 0RF haloperidol 5 mg Tablet 5 mg PO Q6HR PRN (Reason: Agitation) 30 Days Qty: 30 0RF Continued ,calc.[id number] 1 27-1 mg tablet 1 tab PO DAILY Qty: 90 3RF Rx Instructions: Take 1 tab daily for anemia spironolactone 50 mg tablet 50 mg PO DAILY Qty: 90 3RF furosemide 20 mg tablet 40 mg PO QAM Qty: 60 3RF Rx Instructions: Take 1 extra tab of 20mg (total 40mg) daily liothyronine 5 mcg tablet 10 mcg PO DAILY Qty: 180 3RF nadolol 20 mg tablet 30 mg PO DAILY Qty: 135 3RF levothyroxine 100 mcg capsule 100 mcg PO DAILY Qty: 90 3RF lactulose 10 gram/15 mL solution 15 - 30 ml PO BID Patient Comments: Take 30mL daily if pt does not have 3 BMs per day Xifaxan 550 mg tablet 550 mg PO BID potassium chloride [Klor-Con M20] 20 mEq tablet,ER particles/crystals 20 meq PO BID Qty: 60 3RF magnesium oxide 500 mg magnesium tablet 500 mg PO DAILY Qty: 30 3RF pregabalin 75 mg capsule 75 mg PO TID Qty: 90 3RF hydromorphone 2 mg tablet 2 mg PO Q4-6H PRN (Reason: pain) Qty: 40 0RF baclofen 20 mg tablet See Rx Instructions .ROUTE .COMPLEX Qty: 1 1RF Rx Instructions: Take 1/2 tab 4x/day as needed for muscle spasms; lorazepam 1 mg tablet 1 mg PO BEDTIME PRN (Reason: Anxiety) Follow up/Referrals: Divina Lopes ARNP [Primary Care Provider] - Diet/Activity/Treatments Diet: Diet as Tolerated and Regular Activity: As tolerated Visit Report/Discharge Packet Instructions: Aging Gracefully: Reducing the Risks of Polypharmacy, Haloperidol, DI for Altered Mental Status Stand Alone Forms: Patient Portal/API, Stroke Signs & Symptoms Discharge Data Primary Care Provider: Divina Lopes
--- NOTE | 2024-01-11 12:58 | CM.DPC ---
DCP Continued Reviewed EMR and team rounds for pt?s medical status. Per hospitalist, pt is medically cleared to discharge today with family. Per RN, pt required a 1:1 sitter overnight because of statements of suicidality. At the time of this writing, RN states these symptoms have resolved and pt was remorseful this morning making these remarks, denies SI/HI. Pt believes these thoughts were exacerbated by no sleep for 24+ hours. DCP entered room, introduced self and role. Present in the room was pt and her parents. Pt's mother is a good historian for pt. Pt's mother requested referral to home health services but it was determined by pt that she is not currently home bound, thus not qualifying for HH services. DCP discussed referral to [facility] as pt has a hx of utilizing EMS frequently due to the layout of her living situation (pt lives on top floor of parents home and parents are not able to go up to see pt due to steepness of steps, reports of pt also falling due to stairs as well). 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 [facility] sent referral via [employer] form. [facility] provided family with private caregiver list, pamphlet for [facility], and Senior Resource Guide. Pt and family appreciative of resources. Plan: Pt to discharge home, family to transport. Follow up with [facility] [employer] [facility]. CM Team will continue to follow for coordination of discharge plans. BRENTON Liz
== END 2024-01-11 13:15 | disposition home or self-care (01) | DRG 137 ==
LOC: ED 14:56 → AC 17:42
PROVIDERS: Admitting Provider Hospitalist; Emergency Provider Emergency Medicine; Family Provider Nurse Practitioner; PCP Nurse Practitioner; Referring Provider Emergency Medicine; Visit Provider Hospitalist
DX: U07.1 COVID-19 (principal); G93.41 Metabolic encephalopathy; K92.0 Hematemesis; K74.60 Unspecified cirrhosis of liver; K76.6 Portal hypertension; I85.10 Secondary esophageal varices without bleeding; G89.29 Other chronic pain; M54.9 Dorsalgia, unspecified; K86.1 Other chronic pancreatitis; F41.9 Anxiety disorder, unspecified; F32.A Depression, unspecified; E03.9 Hypothyroidism, unspecified; F43.10 Post-traumatic stress disorder, unspecified; M62.82 Rhabdomyolysis; I10 Essential (primary) hypertension; T50.915A Adverse effect of multiple unspecified drugs, medicaments and biological substances, initial encounter; G31.84 Mild cognitive impairment of uncertain or unknown etiology; K92.1 Melena; R45.851 Suicidal ideations; Z86.73 Personal history of transient ischemic attack (TIA), and cerebral infarction without residual deficits
CPT/HCPCS: 36415; 70551; 71045; 80053; 80320; 82140; 83690; 85025; 93005; 96374; 96375; 99283; 99284; G0378; J2060; J2270; J2405

== ENCOUNTER 2024-01-17 03:45 | Inpatient (IN) | payer OTHER, MEDICAID, SELFPAY ==
[2024-01-08 19:22] VITALS: BMI 21.9
[2024-01-17] VITALS (109 sets, daily range): BP systolic 74–120; BP diastolic 42–70; PULSE 63–94; RESP 8–39; TEMP 36.4–37; O2SAT 92–100; BMI 22.3
[2024-01-17] MEDS: PANTOPRAZOLE 40 MG VIAL 80 MG IV (04:34)
[2024-01-17] MEDS: ONDANSETRON 4 MG/2 ML INJ IV ×2 (04:34→07:08)
[2024-01-17 04:38] LABS: Add Manual Diff / Slide Review NO; Basophils Absolute Auto 100 /uL (0-100); Basophils Percent Auto 0.8 % (0-2); Eosinophils Absolute Auto 300 /uL (0-450); Eosinophils Percent Auto 4.4 % (2-4); Hematocrit 28.8 % (36-46); Hemoglobin 9.4 g/dL (12.0-16.0); Lymphocytes Absolute Auto 2100 /uL (1100-4500); Lymphocytes Percent Auto 31.7 % (25-40); Mean Corpuscular HGB Conc 32.6 % (30-36); Mean Corpuscular Hemoglobin 26.3 PG (26-34); Mean Corpuscular Volume 80.7 fL (80-100); Monocytes Absolute Auto 800 /uL (0-900); Monocytes Percent Auto 11.5 % (3-14); Neutrophils Absolute Auto 3400 /uL (1500-7000); Neutrophils Percent Auto 51.6 % (50-75); Platelet Count 139 X10^3/uL (150-400); Red Blood Cell Count 3.57 X10^6/uL (4.0-5.2); Red Cell Distribution Width 19.4 % (11.6-14.8); White Blood Cell Count 6.6 X10^3/uL (4.5-11.0)
[2024-01-17 04:41] LABS: INR 1.5 (0.9-1.3); Prothrombin Time 17.5 SECONDS (9.4-12.5)
[2024-01-17 04:44] LABS: PTT Partial Thromboplastin Tim 38 SECONDS (25.1-36.5)
[2024-01-17 04:45] LABS: Alanine Aminotransferase 59 IU/L (<35); Albumin 3.1 g/dL (3.5-5.0); Albumin Globulin Ratio 0.8 (1.0-2.8); Alkaline Phosphatase 93 U/L (38-126); Aspartate Aminotransferase 98 IU/L (14-36); BUN Creatinine Ratio 18.9 (6-22); Bilirubin Total 1.2 mg/dL (0.2-1.3); Blood Urea Nitrogen 14 mg/dL (7-17); Calcium 8.9 mg/dL (8.4-10.2); Carbon Dioxide 27 mmol/L (22-32); Chloride 107 mmol/L (98-107); Estimated Glomerular Filt Rate > 60 mL/min (>60); Globulin 3.7 g/dL (1.7-4.1); Glucose 109 mg/dL (80-110); HEMOLYSIS < 15 (0-50); Potassium 3.4 mmol/L (3.4-5.1); Sodium 139 mmol/L (137-145); Total Protein 6.8 g/dL (6.3-8.2)
--- NOTE | 2024-01-17 07:14 | ED_ITS ---
HPI - GI Bleed General Chief complaint: GI Bleed Stated complaint: states is losing blood Time Seen by Provider: 01/17/24 05:42 Source: patient Mode of arrival: Wheelchair History of Present Illness HPI Narrative: Patient is a 64-year-old female. Has a history of alcohol abuse but has been sober for quite some time now. Has a history of internal hemorrhoids and esophageal varices. Has been followed by GI. States her last GI visit was 3 weeks ago. Her last blood transfusion was 1 week ago. She has fairly persistent bright red blood per rectum but over the past 24 hours things seemed to get a little bit worse. She states she got very scared by the amount of bleeding that she was having. Stated that she got somewhat lightheaded and almost passed out while at home that also happened here in the emergency department. No fevers. She was not vomiting any blood. No abdominal pain. No pain with bowel movements. Related Data Home Medications Medication Instructions Recorded Confirmed lactulose 10 gram/15 mL oral 15 - 30 ml PO BID 10/16/22 01/08/24 solution rifaximin 550 mg tablet (Xifaxan) 550 mg PO BID 06/16/23 01/08/24 lorazepam 1 mg tablet 1 mg PO BEDTIME PRN Anxiety 01/08/24 01/08/24 Previous Rx's Medication Instructions Recorded vit,calcium no.40-iron 1 tab PO DAILY #90 tabs 04/16/23 fum 27 mg iron-folate no.1 1 mg tablet spironolactone 50 mg tablet 50 mg PO DAILY #90 tabs 06/30/23 furosemide 20 mg tablet 40 mg (2 x 20 mg) PO QAM #60 tabs 10/07/23 liothyronine 5 mcg tablet 10 mcg (2 x 5 mcg) PO DAILY #180 10/14/23 tabs nadolol 20 mg tablet 30 mg (1.5 x 20 mg) PO DAILY #135 10/14/23 tabs magnesium oxide 500 mg PO DAILY #30 tabs 10/22/23 potassium chloride 20 mEq 20 meq PO BID #60 tabs 10/22/23 tablet,extended release(part/cryst) (Klor-Con M) pregabalin 75 mg capsule 75 mg PO TID #90 caps 10/22/23 hydromorphone 2 mg tablet 2 mg PO Q4-6H PRN pain #40 tabs 01/07/24 baclofen 20 mg tablet See Rx Instructions .Route 01/09/24 .COMPLEX #1 tab baclofen 10 mg tablet 10 mg PO QID PRN MUSCLE SPASM #20 01/11/24 tabs haloperidol 5 mg tablet 5 mg PO Q6HR PRN Agitation 30 days 01/11/24 #30 tabs levothyroxine 100 mcg capsule 100 mcg PO DAILY #90 caps 01/11/24 levothyroxine 100 mcg tablet 100 mcg PO 0600 #30 tabs 01/11/24 (Synthroid) Allergies Allergy/AdvReac Type Severity Reaction Status Date / Time doxepin Allergy Intermediate ITCHING Verified 01/08/24 14:03 Review of Systems Review of Systems Narrative: See HPI Patient History Medical History Multilevel spondylosis Back pain Alcoholic cirrhosis GERD (gastroesophageal reflux disease) Pancytopenia Thrombocytopenia Anemia due to blood loss, acute Bleeding internal hemorrhoids Pancreatic lesion (~04/18/23) Weakness of left upper extremity Stroke Anemia, macrocytic Anemia, blood loss Alcohol use disorder, severe, in early remission Hemorrhoids, internal Depression Shortness of breath Hypercalcemia Weight gain Ascites due to alcoholic cirrhosis SBO (small bowel obstruction) Pancreatitis Intermittent palpitations (04/2019) History of blood transfusion (10/2015) Coagulation disorder (2012) Hypothyroidism Hypertension History of heavy periods (2014) Ovarian cyst (2012) Painful menstrual periods (2012) Measles Mumps Chicken pox Eczema (2014) Psoriasis (2014) PTSD (post-traumatic stress disorder) (1999) Anxiety EV (esophageal varices) (10/2015) Portal hypertensive gastropathy (05/2015) Nonalcoholic fatty liver disease GI bleeding (2015) Cirrhosis (2012) Cardiac arrhythmia History of alcohol abuse (12/27/15) Surgical History H/O bilateral oophorectomy History of appendectomy History of inguinal hernia repair History of cholecystectomy History of esophagogastroduodenoscopy (EGD) (05/2015) Status post laparoscopic supracervical hysterectomy (08/25/16) Status post hysteroscopy (06/17/11) Status post hernia repair Status post appendectomy History of esophagogastroduodenoscopy (EGD) (01/2009) Status post colonoscopy (01/2009) Family History Grandfather Heart disease DC (myocardial infarction) Grandmother Alcoholism Father No problems noted. Mother No problems noted. Grandfather Heart disease Grandmother Colon cancer Brother No problems noted. Social History household members: family Smoking Status: Current some day smoker alcohol intake: current Smoking Status: Current some day smoker alcohol intake frequency: 3 or more drinks per day Alcohol type: wine Substance Use Type: does not use Exam Initial Vital Signs Initial Vital Signs: Vital Signs Temperature 97.5 F L 01/17/24 04:05 Pulse Rate 94 H 01/17/24 04:05 Respiratory Rate 16 01/17/24 04:05 Blood Pressure 96/69 01/17/24 04:05 Pulse Oximetry 96 01/17/24 04:05 Oxygen Delivery Method Room Air 01/17/24 04:05 Const General: cooperative, comfortable and No ill appearing HENMT Head: normal to inspection and normocephalic Resp Effort & Inspection: normal respiratory effort Cardio Rate: regular rate GI Inspection: normal to inspection and non-distended Skin General: no rashes or lesions noted Neuro General: patient alert, patient awake, patient oriented x3 and moves all extremities Extrem General: normal to inspection Course Orders Ordered: ED Orders 01/17/24 07:33 CBC Auto Diff [Complete Blood Count AUTO DIFF] Stat 01/17/24 10:06 CT angio Abd/Pel GI Bleed Stat 01/17/24 11:15 Hemoglobin and Hematocrit Stat 01/17/24 11:20 Consult to General Surgery Stat Sodium Chloride (Normal Saline 0.9%) 1,000 mls @ 100 mls/hr IV CONT AGNIESZKA Last Infusion: 01/17/24 10:02 Dose: 100 mls/hr Documented By: Infusion: 01/17/24 08:55 Dose: 0 mls/hr Documented By: Admin: 01/17/24 08:45 Dose: 100 mls/hr Documented By: AVERY Lactated Ringer's (Lactated Ringers) 1,000 mls @ 42 mls/hr IV CONT AGNIESZKA Ondansetron HCl (Ondansetron 4 Mg/2 Ml Inj) 4 mg IV NOW PRN PRN Reason: Nausea And Vomiting Last Admin: 01/17/24 04:34 Dose: 4 mg Documented By: LEIGH Ondansetron HCl (Ondansetron 4 Mg Odt) 4 mg SL NOW PRN PRN Reason: Nausea And Vomiting Discontinued Medications Ondansetron HCl (Ondansetron 4 Mg/2 Ml Inj) 4 mg IV NOW ONE Stop: 01/17/24 07:06 Last Admin: 01/17/24 07:08 Dose: 4 mg Documented By: JONNA Pantoprazole Sodium (Pantoprazole 40 Mg Vial) 80 mg IV NOW ONE Stop: 01/17/24 04:10 Last Admin: 01/17/24 04:34 Dose: 80 mg Documented By: LEIGH Pantoprazole Sodium (Pantoprazole 40 Mg Vial) 80 mg IV NOW ONE Stop: 01/17/24 05:44 Last Admin: 01/17/24 07:20 Dose: Not Given Documented By: Vital Signs Vital signs: Vital Signs - 8 hr 01/17/24 06:57 01/17/24 07:30 01/17/24 08:24 Temperature 97.8 F Pulse Rate 72 66 68 Respiratory Rate 18 12 12 Blood Pressure 96/56 L 99/54 L 98/52 L Pulse Oximetry 98 97 97 Oxygen Delivery Method Room Air Room Air Room Air 01/17/24 08:32 01/17/24 08:50 01/17/24 08:56 Temperature 98.5 F Pulse Rate 63 68 Respiratory Rate 12 20 Blood Pressure 74/42 L 77/56 L 80/51 L Pulse Oximetry 97 Oxygen Delivery Method 01/17/24 08:56 01/17/24 08:58 01/17/24 08:59 Temperature Pulse Rate 79 80 Respiratory Rate 19 23 Blood Pressure 80/51 L Pulse Oximetry 98 99 Oxygen Delivery Method 01/17/24 08:59 01/17/24 09:00 01/17/24 09:00 Temperature Pulse Rate 80 78 Respiratory Rate 17 Blood Pressure 85/52 L Pulse Oximetry 97 100 Oxygen Delivery Method 01/17/24 09:02 01/17/24 09:04 01/17/24 09:04 Temperature 97.9 F Pulse Rate 85 83 Respiratory Rate 17 Blood Pressure Pulse Oximetry 99 98 Oxygen Delivery Method 01/17/24 09:04 01/17/24 09:05 01/17/24 09:05 Temperature Pulse Rate 82 Respiratory Rate 18 Blood Pressure 93/54 L 95/60 Pulse Oximetry 99 Oxygen Delivery Method 01/17/24 09:06 01/17/24 09:06 01/17/24 09:06 Temperature 97.9 F Pulse Rate 79 80 Respiratory Rate 17 17 Blood Pressure 88/51 L 102/63 Pulse Oximetry 99 Oxygen Delivery Method 01/17/24 09:08 01/17/24 09:10 01/17/24 09:11 Temperature Pulse Rate 80 79 78 Respiratory Rate 24 23 13 Blood Pressure Pulse Oximetry 100 100 100 Oxygen Delivery Method 01/17/24 09:11 01/17/24 09:12 01/17/24 09:12 Temperature Pulse Rate 78 Respiratory Rate 11 L Blood Pressure 98/53 L 88/51 L Pulse Oximetry 100 Oxygen Delivery Method Room Air 01/17/24 09:14 01/17/24 09:14 01/17/24 09:15 Temperature 98.6 F Pulse Rate 67 69 Respiratory Rate 17 16 Blood Pressure 99/54 L 103/53 L Pulse Oximetry 100 Oxygen Delivery Method 01/17/24 09:16 01/17/24 09:16 01/17/24 09:18 Temperature Pulse Rate 69 Respiratory Rate 25 H Blood Pressure 103/53 L 84/51 L Pulse Oximetry 100 Oxygen Delivery Method 01/17/24 09:18 01/17/24 09:20 01/17/24 09:20 Temperature Pulse Rate 70 70 Respiratory Rate 15 24 Blood Pressure 92/55 L Pulse Oximetry 100 99 Oxygen Delivery Method 01/17/24 09:22 01/17/24 09:22 01/17/24 09:24 Temperature Pulse Rate 69 Respiratory Rate 23 Blood Pressure 87/50 L 94/52 L Pulse Oximetry 100 Oxygen Delivery Method 01/17/24 09:24 01/17/24 09:26 01/17/24 09:26 Temperature Pulse Rate 69 73 Respiratory Rate 23 11 L Blood Pressure 98/55 L Pulse Oximetry 100 100 Oxygen Delivery Method 01/17/24 09:28 01/17/24 09:28 01/17/24 09:30 Temperature Pulse Rate 67 Respiratory Rate 9 L Blood Pressure 97/55 L 96/54 L Pulse Oximetry 100 Oxygen Delivery Method 01/17/24 09:30 01/17/24 09:32 01/17/24 09:32 Temperature Pulse Rate 68 68 Respiratory Rate 15 15 Blood Pressure 88/51 L Pulse Oximetry 100 100 Oxygen Delivery Method 01/17/24 09:34 01/17/24 09:34 01/17/24 09:36 Temperature Pulse Rate 66 Respiratory Rate 8 L Blood Pressure 94/55 L 93/54 L Pulse Oximetry 100 Oxygen Delivery Method 01/17/24 09:36 01/17/24 09:38 01/17/24 09:38 Temperature Pulse Rate 69 71 Respiratory Rate 18 14 Blood Pressure 91/59 L Pulse Oximetry 99 99 Oxygen Delivery Method 01/17/24 09:40 01/17/24 09:40 01/17/24 09:42 Temperature Pulse Rate 66 Respiratory Rate 12 Blood Pressure 94/58 L 99/60 Pulse Oximetry 100 Oxygen Delivery Method 01/17/24 09:42 01/17/24 09:56 01/17/24 09:58 Temperature 97.9 F Pulse Rate 68 72 71 Respiratory Rate 17 12 20 Blood Pressure 102/59 L Pulse Oximetry 99 100 Oxygen Delivery Method Room Air 01/17/24 09:58 01/17/24 10:00 01/17/24 10:00 Temperature Pulse Rate 70 Respiratory Rate 20 Blood Pressure 102/59 L 102/62 Pulse Oximetry 100 Oxygen Delivery Method 01/17/24 10:02 01/17/24 10:02 01/17/24 10:04 Temperature Pulse Rate 73 Respiratory Rate 19 Blood Pressure 96/62 95/64 Pulse Oximetry 100 Oxygen Delivery Method 01/17/24 10:04 01/17/24 10:05 01/17/24 10:05 Temperature Pulse Rate 74 75 Respiratory Rate 22 21 Blood Pressure 113/61 Pulse Oximetry 100 100 Oxygen Delivery Method 01/17/24 10:06 01/17/24 10:08 01/17/24 10:10 Temperature Pulse Rate 73 73 Respiratory Rate 23 20 Blood Pressure 119/70 Pulse Oximetry 100 100 Oxygen Delivery Method Room Air 01/17/24 10:10 01/17/24 10:12 01/17/24 10:14 Temperature Pulse Rate 72 74 72 Respiratory Rate 15 39 H 26 H Blood Pressure Pulse Oximetry 99 100 Oxygen Delivery Method 01/17/24 10:33 01/17/24 10:34 01/17/24 10:35 Temperature Pulse Rate 75 73 72 Respiratory Rate 19 13 14 Blood Pressure Pulse Oximetry 92 97 100 Oxygen Delivery Method 01/17/24 10:35 01/17/24 10:36 01/17/24 10:38 Temperature Pulse Rate 71 74 Respiratory Rate 21 19 Blood Pressure 96/53 L Pulse Oximetry 100 100 Oxygen Delivery Method 01/17/24 10:40 01/17/24 10:40 01/17/24 10:42 Temperature Pulse Rate 71 76 Respiratory Rate 14 15 Blood Pressure 100/55 L Pulse Oximetry 100 99 Oxygen Delivery Method Room Air 01/17/24 10:44 01/17/24 10:45 01/17/24 10:45 Temperature Pulse Rate 75 74 Respiratory Rate 23 Blood Pressure 99/56 L Pulse Oximetry 99 99 Oxygen Delivery Method 01/17/24 10:46 01/17/24 10:48 01/17/24 10:50 Temperature Pulse Rate 75 76 Respiratory Rate Blood Pressure 96/54 L Pulse Oximetry 98 99 Oxygen Delivery Method 01/17/24 10:50 01/17/24 10:52 01/17/24 10:54 Temperature Pulse Rate 74 77 74 Respiratory Rate 20 20 Blood Pressure Pulse Oximetry 98 99 98 Oxygen Delivery Method 01/17/24 10:55 01/17/24 10:55 01/17/24 10:56 Temperature Pulse Rate 75 73 Respiratory Rate 28 H 14 Blood Pressure 87/54 L Pulse Oximetry 98 98 Oxygen Delivery Method Room Air 01/17/24 10:58 01/17/24 11:00 01/17/24 11:00 Temperature Pulse Rate 74 75 Respiratory Rate 14 18 Blood Pressure 89/51 L Pulse Oximetry 99 99 Oxygen Delivery Method 01/17/24 11:02 01/17/24 11:04 01/17/24 11:06 Temperature Pulse Rate 77 73 74 Respiratory Rate 22 12 Blood Pressure Pulse Oximetry 98 99 99 Oxygen Delivery Method 01/17/24 11:08 01/17/24 11:09 01/17/24 11:09 Temperature Pulse Rate 75 72 Respiratory Rate 19 18 Blood Pressure 99/55 L Pulse Oximetry 98 100 Oxygen Delivery Method 01/17/24 11:10 01/17/24 11:10 01/17/24 11:12 Temperature Pulse Rate 75 75 Respiratory Rate 18 28 H Blood Pressure 96/58 L Pulse Oximetry 99 97 Oxygen Delivery Method 01/17/24 11:16 01/17/24 11:16 01/17/24 11:20 Temperature Pulse Rate 74 Respiratory Rate 16 Blood Pressure 91/53 L 103/63 Pulse Oximetry 98 Oxygen Delivery Method Room Air 01/17/24 11:20 01/17/24 11:25 01/17/24 11:25 Temperature Pulse Rate 77 75 Respiratory Rate 21 14 Blood Pressure 96/57 L Pulse Oximetry 99 99 Oxygen Delivery Method 01/17/24 11:30 01/17/24 11:30 01/17/24 11:35 Temperature Pulse Rate 75 Respiratory Rate 14 Blood Pressure 96/61 105/58 L Pulse Oximetry 99 Oxygen Delivery Method 01/17/24 11:35 01/17/24 11:40 01/17/24 11:40 Temperature Pulse Rate 74 73 Respiratory Rate 21 13 Blood Pressure 88/54 L Pulse Oximetry 99 98 Oxygen Delivery Method Room Air 01/17/24 11:45 01/17/24 11:45 01/17/24 11:50 Temperature Pulse Rate 89 Respiratory Rate 15 Blood Pressure 90/61 92/64 Pulse Oximetry 99 Oxygen Delivery Method 01/17/24 11:50 01/17/24 11:54 01/17/24 11:55 Temperature Pulse Rate 74 70 Respiratory Rate 11 L Blood Pressure 96/57 L Pulse Oximetry 98 99 Oxygen Delivery Method 01/17/24 11:55 01/17/24 12:00 01/17/24 12:01 Temperature Pulse Rate 72 72 Respiratory Rate 12 22 Blood Pressure 96/59 L Pulse Oximetry 98 98 Oxygen Delivery Method 01/17/24 12:01 01/17/24 12:05 01/17/24 12:05 Temperature Pulse Rate 71 72 Respiratory Rate 19 20 Blood Pressure 86/53 L Pulse Oximetry 98 97 Oxygen Delivery Method Room Air 01/17/24 12:10 01/17/24 12:10 01/17/24 12:15 Temperature Pulse Rate 75 70 Respiratory Rate 18 14 Blood Pressure 86/52 L Pulse Oximetry 98 99 Oxygen Delivery Method 01/17/24 12:15 01/17/24 12:20 01/17/24 12:20 Temperature Pulse Rate 69 Respiratory Rate 15 Blood Pressure 89/55 L 90/52 L Pulse Oximetry 98 Oxygen Delivery Method 01/17/24 12:25 01/17/24 12:25 01/17/24 12:30 Temperature Pulse Rate 69 Respiratory Rate 12 Blood Pressure 94/54 L 92/46 L Pulse Oximetry 97 Oxygen Delivery Method 01/17/24 12:30 01/17/24 12:34 01/17/24 12:34 Temperature Pulse Rate 67 73 Respiratory Rate 13 22 Blood Pressure 86/50 L Pulse Oximetry 98 99 Oxygen Delivery Method 01/17/24 12:35 01/17/24 12:35 01/17/24 12:40 Temperature Pulse Rate 70 94 H Respiratory Rate 12 27 H Blood Pressure 81/53 L Pulse Oximetry 99 97 Oxygen Delivery Method 01/17/24 12:41 01/17/24 12:41 Temperature Pulse Rate 92 H Respiratory Rate 17 Blood Pressure 99/65 Pulse Oximetry 98 Oxygen Delivery Method MDM - GI Bleed Medical Records Attestation: I reviewed the patient's medical records. Lab Data Attestation: I reviewed the patient's lab results. 01/17/24 11:15 01/17/24 04:15 Labs: Lab Results 01/17/24 01/17/24 01/17/24 Range/Units 04:15 07:33 11:15 WBC 6.6 7.3 (4.5-11.0) X10^3/uL RBC 3.57 L 2.99 L (4.0-5.2) X10^6/uL Hgb 9.4 L 7.9 L 8.9 L (12.0-16.0) g/dL Hct 28.8 L 24.5 L 26.2 L (36-46) % MCV 80.7 82.0 (80-100) fL MCH 26.3 26.5 (26-34) PG MCHC 32.6 32.3 (30-36) % RDW 19.4 H 19.2 H (11.6-14.8) % Plt Count 139 L 118 L (150-400) X10^3/uL Neut % (Auto) 51.6 72.7 D (50-75) % Lymph % (Auto) 31.7 16.5 L (25-40) % [place] % (Auto) 11.5 9.1 (3-14) % Eos % (Auto) 4.4 H 1.3 L (2-4) % Baso % (Auto) 0.8 0.4 (0-2) % Neut # (Auto) 3400 5300 (9455-0464) /uL Lymph # (Auto) 2100 1200 (5171-4112) /uL [place] # (Auto) 800 700 (0-900) /uL Eos # (Auto) 300 100 (0-450) /uL Baso # (Auto) 100 0 (0-100) /uL PT 17.5 H (9.4-12.5) SECONDS INR 1.5 H (0.9-1.3) APTT 38 H (25.1-36.5) SECONDS Sodium 139 (137-145) mmol/L Potassium 3.4 (3.4-5.1) mmol/L Chloride 107 (98-107) mmol/L Carbon Dioxide 27 (22-32) mmol/L BUN 14 (7-17) mg/dL Creatinine 0.74 (0.52-1.04) mg/dL Estimated GFR > 60 (>60) mL/min BUN/Creatinine Ratio 18.9 (6-22) Glucose 109 (80-110) mg/dL Calcium 8.9 (8.4-10.2) mg/dL Total Bilirubin 1.2 (0.2-1.3) mg/dL AST 98 H (14-36) IU/L ALT 59 H (<35) IU/L Alkaline Phosphatase 93 (38-126) U/L Total Protein 6.8 (6.3-8.2) g/dL Albumin 3.1 L (3.5-5.0) g/dL Globulin 3.7 (1.7-4.1) g/dL Albumin/Globulin Ratio 0.8 L (1.0-2.8) Ethyl Alcohol < 10 ( - 10) mg/dL Blood Type A Positive Antibody Screen Negative Crossmatch See Detail Imaging Data CT scan - abdomen/pelvis: Radiologist's Impression: PROCEDURE: CT ANGIO ABD/PEL GI BLEED INDICATIONS: GI Bleed TECHNIQUE: After the administration of intravenous contrast, 2.5 mm thick sections acquired from the diaphragm to the symphysis. 10 mm maximum-intensity projection (MIP) reformats were then acquired. For radiation dose reduction, the following was used: automated exposure control. COMPARISON: [facility], CT, CT ABDOMEN PELVIS W CON, 12/31/2023, 19:25. FINDINGS: Image Quality: Diagnostic. Abdominal aorta: No aortic aneurysm or evidence of acute aortic syndrome. Mesenteric arteries: Patent without hemodynamically significant stenosis. Renal arteries: Patent without hemodynamically significant stenosis. OTHER: Lower Chest: No significant findings. Liver: Liver is shrunken and nodular in contour. Presume simple hepatic cysts are present unchanged. Gallbladder: Removed. Biliary ducts: No biliary dilation. Pancreas: Pancreas is atrophic with areas of calcification. As identified on prior exams cystic lesions are identified within the body and tail with dilated side branches. Complex cystic is in the pancreatic head relatively unchanged. Main pancreatic ductal dilation is stable. Spleen: Enlarged without change. Adrenal Glands: No adrenal nodules. Kidneys and Ureters: No hydronephrosis. No solid mass. No complex renal cystic lesion which requires follow up. Stomach and Bowel: Normal colonic caliber, without significant wall thickening. [id number] hiatal hernia. Peritoneum: No abnormal intraperitoneal fluid. No free air. Ventral Wall: No hernia. Abdominal Nodes: No retroperitoneal or mesenteric adenopathy by size criteria. Vessels: Aorta and inferior vena cava are normal in size. PELVIS: Pelvic Organs: Unremarkable. Bladder: Unremarkable. Pelvic Nodes: No enlarged lymph nodes. Miscellaneous: No inguinal hernias are seen. Bones: No aggressive osseous abnormality. IMPRESSION: Nodular appearance liver s appearing consistent with cirrhosis as well as splenomegaly. Cystic foci within the pancreas as well as complex cystic mass within the pancreatic head and ductal dilation. Overall it is stable compared to prior exam. No inflammatory change within the bowel. No contrast pooling or extravasation within the bowel as site of active hemorrhage. ECG Data Attestation: I personally reviewed and interpreted this ECG as follows: Interpretation: Sinus rhythm Ventricular rate is 68 Normal axis Normal QRS Normal QTC No ST T wave changes MDM Narrative Medical decision making narrative: Patient has a known history of hemorrhoids and also has a history of esophageal varices secondary to alcoholic cirrhosis. She was not having abdominal tenderness. Is not vomiting any blood. Is having bright red blood per rectum and has had multiple bright red blood bowel movements here in the ER. Initial H&H is somewhat below her baseline however repeat shows that it is lower than her presentation. She is symptomatic from this she gets very lightheaded and hypotensive with standing. Was transfused 1 unit of packed red blood cells. Her blood pressure improved. Patient feels better. I did discuss the case with Dr. Craven hospitalist at the [facility]. The patient is only seen hepatology of the [facility]. He stated that there did not seem to be an emergent reason that would cause her to be accepted at the [facility]. I discuss the case with Dr. Hart with General surgery this facility. CT scan does not show any active bleeding. He was evaluated the patient here in the emergency department. I then discussed the case with Dr. Blanco hospitalist on-call. We will admit for further evaluation and most likely some sort of scope. Patient understands need for admission. Critical Care Time Critical Care Time Critical Care Time: Yes Total Critical Care Time: 40 Attestation: The high probability of a clinically significant, sudden or life threatening deterioration of the [cardiovascular, GI] system(s) required my full and direct attention, intervention and personal management. The aggregate critical care time was [40] minutes. This time is in addition to time spent performing reported procedures but includes the following: [x] Data Review and interpretation [x] Patient assessment and monitoring of vital signs [x] Documentation [x] Medication orders and management Discharge Plan Departure Patient Disposition: Admitted As Inpatient Clinical Impression: GI bleed, Bleeding hemorrhoids Admit Date/Time: 01/17/24 12:42 Admit Provider: Joesph Blanco V
--- NOTE | 2024-01-17 07:43 | PC.NURSE ---
Pt to bathroom and had another large dark red stool, pt became dizzy afterwards, got her in bed
[2024-01-17 07:50] LABS: Add Manual Diff / Slide Review NO; Basophils Absolute Auto 0 /uL (0-100); Basophils Percent Auto 0.4 % (0-2); Eosinophils Absolute Auto 100 /uL (0-450); Eosinophils Percent Auto 1.3 % (2-4); Hematocrit 24.5 % (36-46); Hemoglobin 7.9 g/dL (12.0-16.0); Lymphocytes Absolute Auto 1200 /uL (1100-4500); Lymphocytes Percent Auto 16.5 % (25-40); Mean Corpuscular HGB Conc 32.3 % (30-36); Mean Corpuscular Hemoglobin 26.5 PG (26-34); Monocytes Absolute Auto 700 /uL (0-900); Monocytes Percent Auto 9.1 % (3-14); Neutrophils Absolute Auto 5300 /uL (1500-7000); Neutrophils Percent Auto 72.7 % (50-75); Platelet Count 118 X10^3/uL (150-400); Red Blood Cell Count 2.99 X10^6/uL (4.0-5.2); Red Cell Distribution Width 19.2 % (11.6-14.8); White Blood Cell Count 7.3 X10^3/uL (4.5-11.0)
[2024-01-17] MEDS: SODIUM CHLORIDE 0.9% 1,000 ML 100 ML IV (08:45)
[2024-01-17 08:57] LABS: Ethanol (ETOH) < 10 mg/dL
--- NOTE | 2024-01-17 09:23 | PC.NURSE ---
Recieved pt this morning at 0715, pt is pale. repoeate cbc drawn at 0733. pt with soft bp. Dr. mccoy aware of vital signs. at 0830, Dr Mccoy reported pt wanted to walk to use the restroom. I ambulated with the patient. She declined dizziness or feeling light headed. pt sat on the toilet . I asked her to pull the cord when she was finished. a few minutes later, pt called. fiber designer went into the bathroom. pt had a large amount of BRBPR. pale and clammy. stretcher bought to the bathroom and bp was 72/42. pulse 63. sats [address] Mccoy aware. Another RN went to obtain the blood from blood bank . another IV was started. standing order fluids opened up briefly for the event until blood started. trendelenburg position. Dr. Mccoy at beside . blood strarted . see vital signs for review
--- NOTE | 2024-01-17 09:24 | EKG_ITS ---
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
--- NOTE | 2024-01-17 10:06 | DI.CT.S_ITS ---
PROCEDURE: CT ANGIO ABD/PEL GI BLEED INDICATIONS: GI Bleed TECHNIQUE: After the administration of intravenous contrast, 2.5 mm thick sections acquired from the diaphragm to the symphysis. 10 mm maximum-intensity projection (MIP) reformats were then acquired. For radiation dose reduction, the following was used: automated exposure control. COMPARISON: [facility], CT, CT ABDOMEN PELVIS W CON, 12/31/2023, 19:25. FINDINGS: Image Quality: Diagnostic. Abdominal aorta: No aortic aneurysm or evidence of acute aortic syndrome. Mesenteric arteries: Patent without hemodynamically significant stenosis. Renal arteries: Patent without hemodynamically significant stenosis. OTHER: Lower Chest: No significant findings. Liver: Liver is shrunken and nodular in contour. Presume simple hepatic cysts are present unchanged. Gallbladder: Removed. Biliary ducts: No biliary dilation. Pancreas: Pancreas is atrophic with areas of calcification. As identified on prior exams cystic lesions are identified within the body and tail with dilated side branches. Complex cystic is in the pancreatic head relatively unchanged. Main pancreatic ductal dilation is stable. Spleen: Enlarged without change. Adrenal Glands: No adrenal nodules. Kidneys and Ureters: No hydronephrosis. No solid mass. No complex renal cystic lesion which requires follow up. Stomach and Bowel: Normal colonic caliber, without significant wall thickening. [id number] hiatal hernia. Peritoneum: No abnormal intraperitoneal fluid. No free air. Ventral Wall: No hernia. Abdominal Nodes: No retroperitoneal or mesenteric adenopathy by size criteria. Vessels: Aorta and inferior vena cava are normal in size. PELVIS: Pelvic Organs: Unremarkable. Bladder: Unremarkable. Pelvic Nodes: No enlarged lymph nodes. Miscellaneous: No inguinal hernias are seen. Bones: No aggressive osseous abnormality. IMPRESSION: Nodular appearance liver s appearing consistent with cirrhosis as well as splenomegaly. Cystic foci within the pancreas as well as complex cystic mass within the pancreatic head and ductal dilation. Overall it is stable compared to prior exam. No inflammatory change within the bowel. No contrast pooling or extravasation within the bowel as site of active hemorrhage. Dictated by: Rosalba Downey M.D. on 01/17/2024 at 11:06 Approved by: Rosalba Downey M.D. on 01/17/2024 at 11:13
[2024-01-17 11:22] LABS: Hematocrit 26.2 % (36-46); Hemoglobin 8.9 g/dL (12.0-16.0)
--- NOTE | 2024-01-17 11:46 | PM.CN ---
History of Present Illness Consult details Date Patient Seen: 01/17/24 Time Patient Seen: 11:46 Chief complaint: states is losing blood Narrative: 64F PMH CVA, alcoholic cirrhosis with known esophageal varices, ascities and encephalopathy who presents with rectal bleeding. She has been admitted numerous times for anemia and GI bleeding. Today she had multiple episodes of bright red blood per rectum. Initial BP 90/50 became as low as 70/40 received 1 unit PRCBs, currently stable. In regards to her cirrhosis INR 1.5, plt 118 Cr 0.7, Albumin 3.1 followed by JENNIFER Wheeler in [place]. Meds Home Medications and Allergies Home Medications Medication Instructions Recorded Confirmed Type lactulose 10 gram/15 mL oral 15 - 30 ml PO BID 10/16/22 01/08/24 History solution vit,calcium no.40-iron 1 tab PO DAILY #90 tabs 04/16/23 01/08/24 Rx fum 27 mg iron-folate no.1 1 mg tablet rifaximin 550 mg tablet (Xifaxan) 550 mg PO BID 06/16/23 01/08/24 History spironolactone 50 mg tablet 50 mg PO DAILY #90 tabs 06/30/23 01/08/24 Rx furosemide 20 mg tablet 40 mg (2 x 20 mg) PO QAM #60 tabs 10/07/23 01/08/24 Rx liothyronine 5 mcg tablet 10 mcg (2 x 5 mcg) PO DAILY #180 10/14/23 01/08/24 Rx tabs nadolol 20 mg tablet 30 mg (1.5 x 20 mg) PO DAILY #135 10/14/23 01/08/24 Rx tabs magnesium oxide 500 mg PO DAILY #30 tabs 10/22/23 01/08/24 Rx potassium chloride 20 mEq 20 meq PO BID #60 tabs 10/22/23 01/08/24 Rx tablet,extended release(part/cryst) (Klor-Con M) pregabalin 75 mg capsule 75 mg PO TID #90 caps 10/22/23 01/08/24 Rx hydromorphone 2 mg tablet 2 mg PO Q4-6H PRN pain #40 tabs 01/07/24 01/08/24 Rx lorazepam 1 mg tablet 1 mg PO BEDTIME PRN Anxiety 01/08/24 01/08/24 History baclofen 20 mg tablet See Rx Instructions .Route 01/09/24 01/09/24 Rx .COMPLEX #1 tab baclofen 10 mg tablet 10 mg PO QID PRN MUSCLE SPASM #20 01/11/24 Rx tabs haloperidol 5 mg tablet 5 mg PO Q6HR PRN Agitation 30 days 01/11/24 Rx #30 tabs levothyroxine 100 mcg capsule 100 mcg PO DAILY #90 caps 01/11/24 Rx levothyroxine 100 mcg tablet 100 mcg PO 0600 #30 tabs 01/11/24 Rx (Synthroid) Allergies Allergy/AdvReac Type Severity Reaction Status Date / Time doxepin Allergy Intermediate ITCHING Verified 01/08/24 14:03 Exam Vital Signs (past 8 hours): - 01/17/24 04:05 01/17/24 06:57 01/17/24 07:30 Temperature 97.5 F L 97.8 F Pulse Rate 94 H 72 66 Respiratory Rate 16 18 12 Blood Pressure 96/69 96/56 L 99/54 L Pulse Oximetry 96 98 97 Oxygen Delivery Method Room Air Room Air Room Air 01/17/24 08:24 01/17/24 08:32 01/17/24 08:50 Temperature 98.5 F Pulse Rate 68 63 68 Respiratory Rate 12 12 20 Blood Pressure 98/52 L 74/42 L 77/56 L Pulse Oximetry 97 97 Oxygen Delivery Method Room Air 01/17/24 08:56 01/17/24 08:56 01/17/24 08:58 Temperature Pulse Rate 79 80 Respiratory Rate 19 23 Blood Pressure 80/51 L Pulse Oximetry 98 99 Oxygen Delivery Method 01/17/24 08:59 01/17/24 08:59 01/17/24 09:00 Temperature Pulse Rate 80 Respiratory Rate 17 Blood Pressure 80/51 L 85/52 L Pulse Oximetry 97 Oxygen Delivery Method 01/17/24 09:00 01/17/24 09:02 01/17/24 09:04 Temperature 97.9 F Pulse Rate 78 85 Respiratory Rate Blood Pressure Pulse Oximetry 100 99 Oxygen Delivery Method 01/17/24 09:04 01/17/24 09:04 01/17/24 09:05 Temperature Pulse Rate 83 82 Respiratory Rate 17 18 Blood Pressure 93/54 L Pulse Oximetry 98 99 Oxygen Delivery Method 01/17/24 09:05 01/17/24 09:06 01/17/24 09:06 Temperature 97.9 F Pulse Rate 79 80 Respiratory Rate 17 17 Blood Pressure 95/60 88/51 L Pulse Oximetry 99 Oxygen Delivery Method 01/17/24 09:06 01/17/24 09:08 01/17/24 09:10 Temperature Pulse Rate 80 79 Respiratory Rate 24 23 Blood Pressure 102/63 Pulse Oximetry 100 100 Oxygen Delivery Method 01/17/24 09:11 01/17/24 09:11 01/17/24 09:12 Temperature Pulse Rate 78 Respiratory Rate 13 Blood Pressure 98/53 L 88/51 L Pulse Oximetry 100 Oxygen Delivery Method 01/17/24 09:12 01/17/24 09:14 01/17/24 09:14 Temperature Pulse Rate 78 67 Respiratory Rate 11 L 17 Blood Pressure 99/54 L Pulse Oximetry 100 100 Oxygen Delivery Method Room Air 01/17/24 09:15 01/17/24 09:16 01/17/24 09:16 Temperature 98.6 F Pulse Rate 69 69 Respiratory Rate 16 25 H Blood Pressure 103/53 L 103/53 L Pulse Oximetry 100 Oxygen Delivery Method 01/17/24 09:18 01/17/24 09:18 01/17/24 09:20 Temperature Pulse Rate 70 Respiratory Rate 15 Blood Pressure 84/51 L 92/55 L Pulse Oximetry 100 Oxygen Delivery Method 01/17/24 09:20 01/17/24 09:22 01/17/24 09:22 Temperature Pulse Rate 70 69 Respiratory Rate 24 23 Blood Pressure 87/50 L Pulse Oximetry 99 100 Oxygen Delivery Method 01/17/24 09:24 01/17/24 09:24 01/17/24 09:26 Temperature Pulse Rate 69 73 Respiratory Rate 23 11 L Blood Pressure 94/52 L Pulse Oximetry 100 100 Oxygen Delivery Method 01/17/24 09:26 01/17/24 09:28 01/17/24 09:28 Temperature Pulse Rate 67 Respiratory Rate 9 L Blood Pressure 98/55 L 97/55 L Pulse Oximetry 100 Oxygen Delivery Method 01/17/24 09:30 01/17/24 09:30 01/17/24 09:32 Temperature Pulse Rate 68 Respiratory Rate 15 Blood Pressure 96/54 L 88/51 L Pulse Oximetry 100 Oxygen Delivery Method 01/17/24 09:32 01/17/24 09:34 01/17/24 09:34 Temperature Pulse Rate 68 66 Respiratory Rate 15 8 L Blood Pressure 94/55 L Pulse Oximetry 100 100 Oxygen Delivery Method 01/17/24 09:36 01/17/24 09:36 01/17/24 09:38 Temperature Pulse Rate 69 Respiratory Rate 18 Blood Pressure 93/54 L 91/59 L Pulse Oximetry 99 Oxygen Delivery Method 01/17/24 09:38 01/17/24 09:40 01/17/24 09:40 Temperature Pulse Rate 71 66 Respiratory Rate 14 12 Blood Pressure 94/58 L Pulse Oximetry 99 100 Oxygen Delivery Method 01/17/24 09:42 01/17/24 09:42 01/17/24 09:56 Temperature 97.9 F Pulse Rate 68 72 Respiratory Rate 17 12 Blood Pressure 99/60 102/59 L Pulse Oximetry 99 Oxygen Delivery Method 01/17/24 09:58 01/17/24 09:58 01/17/24 10:00 Temperature Pulse Rate 71 70 Respiratory Rate 20 20 Blood Pressure 102/59 L Pulse Oximetry 100 100 Oxygen Delivery Method Room Air 01/17/24 10:00 01/17/24 10:02 01/17/24 10:02 Temperature Pulse Rate 73 Respiratory Rate 19 Blood Pressure 102/62 96/62 Pulse Oximetry 100 Oxygen Delivery Method 01/17/24 10:04 01/17/24 10:04 01/17/24 10:05 Temperature Pulse Rate 74 Respiratory Rate 22 Blood Pressure 95/64 113/61 Pulse Oximetry 100 Oxygen Delivery Method 01/17/24 10:05 01/17/24 10:06 01/17/24 10:08 Temperature Pulse Rate 75 73 73 Respiratory Rate 21 23 20 Blood Pressure Pulse Oximetry 100 100 100 Oxygen Delivery Method Room Air 01/17/24 10:10 01/17/24 10:10 01/17/24 10:12 Temperature Pulse Rate 72 74 Respiratory Rate 15 39 H Blood Pressure 119/70 Pulse Oximetry 99 100 Oxygen Delivery Method 01/17/24 10:14 01/17/24 10:33 01/17/24 10:34 Temperature Pulse Rate 72 75 73 Respiratory Rate 26 H 19 13 Blood Pressure Pulse Oximetry 92 97 Oxygen Delivery Method 01/17/24 10:35 01/17/24 10:35 01/17/24 10:36 Temperature Pulse Rate 72 71 Respiratory Rate 14 21 Blood Pressure 96/53 L Pulse Oximetry 100 100 Oxygen Delivery Method 01/17/24 10:38 07/07/24 10:40 01/17/24 10:40 Temperature Pulse Rate 74 71 Respiratory Rate 19 14 Blood Pressure 100/55 L Pulse Oximetry 100 100 Oxygen Delivery Method Room Air 01/17/24 10:42 01/17/24 10:44 01/17/24 10:45 Temperature Pulse Rate 76 75 Respiratory Rate 15 23 Blood Pressure 99/56 L Pulse Oximetry 99 99 Oxygen Delivery Method 01/17/24 10:45 01/17/24 10:46 01/17/24 10:48 Temperature Pulse Rate 74 75 76 Respiratory Rate Blood Pressure Pulse Oximetry 99 98 99 Oxygen Delivery Method 01/17/24 10:50 01/17/24 10:50 01/17/24 10:52 Temperature Pulse Rate 74 77 Respiratory Rate 20 Blood Pressure 96/54 L Pulse Oximetry 98 99 Oxygen Delivery Method 01/17/24 10:54 01/17/24 10:55 01/17/24 10:55 Temperature Pulse Rate 74 75 Respiratory Rate 20 28 H Blood Pressure 87/54 L Pulse Oximetry 98 98 Oxygen Delivery Method Room Air 01/17/24 10:56 01/17/24 10:58 01/17/24 11:00 Temperature Pulse Rate 73 74 Respiratory Rate 14 14 Blood Pressure 89/51 L Pulse Oximetry 98 99 Oxygen Delivery Method 01/17/24 11:00 01/17/24 11:02 01/17/24 11:04 Temperature Pulse Rate 75 77 73 Respiratory Rate 18 22 Blood Pressure Pulse Oximetry 99 98 99 Oxygen Delivery Method 01/17/24 11:06 01/17/24 11:08 01/17/24 11:09 Temperature Pulse Rate 74 75 Respiratory Rate 12 19 Blood Pressure 99/55 L Pulse Oximetry 99 98 Oxygen Delivery Method 01/17/24 11:09 01/17/24 11:10 01/17/24 11:10 Temperature Pulse Rate 72 75 Respiratory Rate 18 18 Blood Pressure 96/58 L Pulse Oximetry 100 99 Oxygen Delivery Method 01/17/24 11:12 Temperature Pulse Rate 75 Respiratory Rate 28 H Blood Pressure Pulse Oximetry 97 Oxygen Delivery Method Oxygen Delivery Method Room Air Narrative Exam Narrative: Gen-Elderly woman alert and oriented Chest- Non labored resp Rectum-Bright red blood internal hemorrhoids Objective Labs 01/17/24 11:15 01/17/24 04:15 Labs: Laboratory Results - last 24 hr 01/17/24 01/17/24 01/17/24 04:15 07:33 11:15 WBC 6.6 7.3 RBC 3.57 L 2.99 L Hgb 9.4 L 7.9 L 8.9 L Hct 28.8 L 24.5 L 26.2 L MCV 80.7 82.0 MCH 26.3 26.5 MCHC 32.6 32.3 RDW 19.4 H 19.2 H Plt Count 139 L 118 L Neut % (Auto) 51.6 72.7 D Lymph % (Auto) 31.7 16.5 L Smyth % (Auto) 11.5 9.1 Eos % (Auto) 4.4 H 1.3 L Baso % (Auto) 0.8 0.4 Neut # (Auto) 3400 5300 Lymph # (Auto) 2100 1200 Smyth # (Auto) 800 700 Eos # (Auto) 300 100 Baso # (Auto) 100 0 PT 17.5 H INR 1.5 H APTT 38 H Sodium 139 Potassium 3.4 Chloride 107 Carbon Dioxide 27 BUN 14 Creatinine 0.74 Estimated GFR > 60 BUN/Creatinine Ratio 18.9 Glucose 109 Calcium 8.9 Total Bilirubin 1.2 AST 98 H ALT 59 H Alkaline Phosphatase 93 Total Protein 6.8 Albumin 3.1 L Globulin 3.7 Albumin/Globulin Ratio 0.8 L Ethyl Alcohol < 10 Blood Type A Positive Antibody Screen Negative Crossmatch See Detail [facility] Medical History Multilevel spondylosis Back pain Alcoholic cirrhosis GERD (gastroesophageal reflux disease) Pancytopenia Thrombocytopenia Anemia due to blood loss, acute Bleeding internal hemorrhoids Pancreatic lesion (~04/18/23) Weakness of left upper extremity Stroke Anemia, macrocytic Anemia, blood loss Alcohol use disorder, severe, in early remission Hemorrhoids, internal Depression Shortness of breath Hypercalcemia Weight gain Ascites due to alcoholic cirrhosis SBO (small bowel obstruction) Pancreatitis Intermittent palpitations (04/2019) History of blood transfusion (10/2015) Coagulation disorder (2012) Hypothyroidism Hypertension History of heavy periods (2014) Ovarian cyst (2012) Painful menstrual periods (2012) Measles Mumps Chicken pox Eczema (2014) Psoriasis (2014) PTSD (post-traumatic stress disorder) (1999) Anxiety EV (esophageal varices) (10/2015) Portal hypertensive gastropathy (05/2015) Nonalcoholic fatty liver disease GI bleeding (2016) Cirrhosis (2013) Cardiac arrhythmia History of alcohol abuse (12/27/15) Surgical History H/O bilateral oophorectomy History of appendectomy History of inguinal hernia repair History of cholecystectomy History of esophagogastroduodenoscopy (EGD) (05/2015) Status post laparoscopic supracervical hysterectomy (08/25/16) Status post hysteroscopy (06/17/11) Status post hernia repair Status post appendectomy History of esophagogastroduodenoscopy (EGD) (01/2009) Status post colonoscopy (01/2009) Family History Grandfather Heart disease DE (myocardial infarction) Grandmother Alcoholism Father No problems noted. Mother No problems noted. Grandfather Heart disease Grandmother Colon cancer Brother No problems noted. Social History household members: family Tobacco & Substance Use Smoking Status: Current some day smoker alcohol intake: current Assessment & Plan Assessment and plan (1) GI bleed: Qualifiers: GI bleed type/associated pathology: anorectal hemorrhage Qualified Code(s): K62.5 - Hemorrhage of anus and rectum Status: Acute Assessment & Plan narrative: 64F PMH end stage liver disease from alcoholism with ongoing rectal bleeding presumably from internal hemorrhoids requiring transfusion. Poor surgical candidate given her liver disease however she has had multiple admissions for anemia/GI bleeding and is unlikely to improve without intervention. Operative risks including hemorrhage, incontinence, anal stenosis and serious but less common risks such as DE, CVA, and were reviewed. Following discussion she elects to proceed. Time-Based Coding :: [TOTAL MINUTES] spent with patient and on the chart (including review of chart, obtaining history, exam, reviewing outside data, placing orders, documenting exam and treatment plan, and counseling patient) on [DATE].
--- NOTE | 2024-01-17 15:29 | PM.HP.1 ---
History of Present Illness History of Present Illness Date Patient Seen: 01/17/24 Time Patient Seen: 14:30 Chief complaint: rectal bleeding Narrative: 64-year-old woman in history of cirrhosis due to alcohol abuse history, with a history of esophageal varices and internal hemorrhoids, presents reporting persistent and worsening bright red blood per rectum over the previous 24 hours. She has had multiple admissions for GI leeding due to varices as well as hemorrhoids. [facility] Medical History Multilevel spondylosis Back pain Alcoholic cirrhosis GERD (gastroesophageal reflux disease) Pancytopenia Thrombocytopenia Anemia due to blood loss, acute Bleeding internal hemorrhoids Pancreatic lesion (~04/18/23) Weakness of left upper extremity Stroke Anemia, macrocytic Anemia, blood loss Alcohol use disorder, severe, in early remission Hemorrhoids, internal Depression Shortness of breath Hypercalcemia Weight gain Ascites due to alcoholic cirrhosis SBO (small bowel obstruction) Pancreatitis Intermittent palpitations (04/2019) History of blood transfusion (10/2015) Coagulation disorder (2012) Hypothyroidism Hypertension History of heavy periods (2014) Ovarian cyst (2012) Painful menstrual periods (2012) Measles Mumps Chicken pox Eczema (2014) Psoriasis (2014) PTSD (post-traumatic stress disorder) (1999) Anxiety EV (esophageal varices) (10/2015) Portal hypertensive gastropathy (05/2015) Nonalcoholic fatty liver disease GI bleeding (2015) Cirrhosis (2012) Cardiac arrhythmia History of alcohol abuse (12/27/15) Surgical History H/O bilateral oophorectomy History of appendectomy History of inguinal hernia repair History of cholecystectomy History of esophagogastroduodenoscopy (EGD) (05/2015) Status post laparoscopic supracervical hysterectomy (08/25/16) Status post hysteroscopy (06/17/11) Status post hernia repair Status post appendectomy History of esophagogastroduodenoscopy (EGD) (01/2009) Status post colonoscopy (01/2009) Family History Grandfather Heart disease [place] (myocardial infarction) Grandmother Alcoholism Father No problems noted. Mother No problems noted. Grandfather Heart disease Grandmother Colon cancer Brother No problems noted. Social History household members: family Smoking Status: Never smoker alcohol intake: former Meds Home Medications and Allergies Home Medications Medication Instructions Recorded Confirmed Type lactulose 10 gram/15 mL oral 15 ml PO BID PRN per patient 10/16/22 01/17/24 History solution discretion vit,calcium no.40-iron 1 tab PO DAILY #90 tabs 04/16/23 01/17/24 Rx fum 27 mg iron-folate no.1 1 mg tablet rifaximin 550 mg tablet (Xifaxan) 550 mg PO BID 06/16/23 01/17/24 History spironolactone 50 mg tablet 50 mg PO DAILY #90 tabs 06/30/23 01/17/24 Rx furosemide 20 mg tablet 40 mg (2 x 20 mg) PO QAM #60 tabs 10/07/23 01/17/24 Rx liothyronine 5 mcg tablet 10 mcg (2 x 5 mcg) PO DAILY #180 10/14/23 01/17/24 Rx tabs nadolol 20 mg tablet 30 mg (1.5 x 20 mg) PO DAILY #135 10/14/23 01/17/24 Rx tabs magnesium oxide 500 mg PO DAILY #30 tabs 10/22/23 01/17/24 Rx potassium chloride 20 mEq 20 meq PO BID #60 tabs 10/22/23 01/17/24 Rx tablet,extended release(part/cryst) (Klor-Con M) pregabalin 75 mg capsule 75 mg PO TID #90 caps 10/22/23 01/17/24 Rx hydromorphone 2 mg tablet 2 mg PO Q4-6H PRN pain #40 tabs 01/07/24 01/17/24 Rx lorazepam 1 mg tablet 1 mg PO BEDTIME PRN Anxiety 01/08/24 01/17/24 History levothyroxine 100 mcg capsule 100 mcg PO DAILY #90 caps 01/11/24 01/17/24 Rx baclofen 10 mg tablet 10 mg PO QID PRN MUSCLE SPASM 01/17/24 01/17/24 History Allergies Allergy/AdvReac Type Severity Reaction Status Date / Time doxepin Allergy Intermediate ITCHING Verified 01/08/24 14:03 Review of Systems Review of Systems ROS: Yes All systems reviewed with the patient and are negative except as otherwise documented Exam Vital Signs (past 8 hours): - 01/17/24 07:30 01/17/24 08:24 01/17/24 08:32 Temperature Pulse Rate 66 68 63 Respiratory Rate 12 12 12 Blood Pressure 99/54 L 98/52 L 74/42 L Pulse Oximetry 97 97 97 Oxygen Delivery Method Room Air Room Air Oxygen Flow Rate 01/17/24 08:50 01/17/24 08:56 01/17/24 08:56 Temperature 98.5 F Pulse Rate 68 79 Respiratory Rate 20 19 Blood Pressure 77/56 L 80/51 L Pulse Oximetry 98 Oxygen Delivery Method Oxygen Flow Rate 01/17/24 08:58 01/17/24 08:59 01/17/24 08:59 Temperature Pulse Rate 80 80 Respiratory Rate 23 17 Blood Pressure 80/51 L Pulse Oximetry 99 97 Oxygen Delivery Method Oxygen Flow Rate 01/17/24 09:00 01/17/24 09:00 01/17/24 09:02 Temperature Pulse Rate 78 85 Respiratory Rate Blood Pressure 85/52 L Pulse Oximetry 100 99 Oxygen Delivery Method Oxygen Flow Rate 01/17/24 09:04 01/17/24 09:04 01/17/24 09:04 Temperature 97.9 F Pulse Rate 83 Respiratory Rate 17 Blood Pressure 93/54 L Pulse Oximetry 98 Oxygen Delivery Method Oxygen Flow Rate 01/17/24 09:05 01/17/24 09:05 01/17/24 09:06 Temperature 97.9 F Pulse Rate 82 79 Respiratory Rate 18 17 Blood Pressure 95/60 88/51 L Pulse Oximetry 99 Oxygen Delivery Method Oxygen Flow Rate 01/17/24 09:06 01/17/24 09:06 01/17/24 09:08 Temperature Pulse Rate 80 80 Respiratory Rate 17 24 Blood Pressure 102/63 Pulse Oximetry 99 100 Oxygen Delivery Method Oxygen Flow Rate 01/17/24 09:10 01/17/24 09:11 01/17/24 09:11 Temperature Pulse Rate 79 78 Respiratory Rate 23 13 Blood Pressure 98/53 L Pulse Oximetry 100 100 Oxygen Delivery Method Oxygen Flow Rate 01/17/24 09:12 01/17/24 09:12 01/17/24 09:14 Temperature Pulse Rate 78 Respiratory Rate 11 L Blood Pressure 88/51 L 99/54 L Pulse Oximetry 100 Oxygen Delivery Method Room Air Oxygen Flow Rate 01/17/24 09:14 07/07/24 09:15 01/17/24 09:16 Temperature 98.6 F Pulse Rate 67 69 Respiratory Rate 17 16 Blood Pressure 103/53 L 103/53 L Pulse Oximetry 100 Oxygen Delivery Method Oxygen Flow Rate 01/17/24 09:16 01/17/24 09:18 01/17/24 09:18 Temperature Pulse Rate 69 70 Respiratory Rate 25 H 15 Blood Pressure 84/51 L Pulse Oximetry 100 100 Oxygen Delivery Method Oxygen Flow Rate 01/17/24 09:20 01/17/24 09:20 01/17/24 09:22 Temperature Pulse Rate 70 Respiratory Rate 24 Blood Pressure 92/55 L 87/50 L Pulse Oximetry 99 Oxygen Delivery Method Oxygen Flow Rate 01/17/24 09:22 01/17/24 09:24 01/17/24 09:24 Temperature Pulse Rate 69 69 Respiratory Rate 23 23 Blood Pressure 94/52 L Pulse Oximetry 100 100 Oxygen Delivery Method Oxygen Flow Rate 01/17/24 09:26 01/17/24 09:26 01/17/24 09:28 Temperature Pulse Rate 73 Respiratory Rate 11 L Blood Pressure 98/55 L 97/55 L Pulse Oximetry 100 Oxygen Delivery Method Oxygen Flow Rate 01/17/24 09:28 01/17/24 09:30 01/17/24 09:30 Temperature Pulse Rate 67 68 Respiratory Rate 9 L 15 Blood Pressure 96/54 L Pulse Oximetry 100 100 Oxygen Delivery Method Oxygen Flow Rate 01/17/24 09:32 01/17/24 09:32 01/17/24 09:34 Temperature Pulse Rate 68 Respiratory Rate 15 Blood Pressure 88/51 L 94/55 L Pulse Oximetry 100 Oxygen Delivery Method Oxygen Flow Rate 01/17/24 09:34 01/17/24 09:36 01/17/24 09:36 Temperature Pulse Rate 66 69 Respiratory Rate 8 L 18 Blood Pressure 93/54 L Pulse Oximetry 100 99 Oxygen Delivery Method Oxygen Flow Rate 01/17/24 09:38 01/17/24 09:38 01/17/24 09:40 Temperature Pulse Rate 71 Respiratory Rate 14 Blood Pressure 91/59 L 94/58 L Pulse Oximetry 99 Oxygen Delivery Method Oxygen Flow Rate 01/17/24 09:40 01/17/24 09:42 01/17/24 09:42 Temperature Pulse Rate 66 68 Respiratory Rate 12 17 Blood Pressure 99/60 Pulse Oximetry 100 99 Oxygen Delivery Method Oxygen Flow Rate 01/17/24 09:56 01/17/24 09:58 01/17/24 09:58 Temperature 97.9 F Pulse Rate 72 71 Respiratory Rate 12 20 Blood Pressure 102/59 L 102/59 L Pulse Oximetry 100 Oxygen Delivery Method Room Air Oxygen Flow Rate 01/17/24 10:00 01/17/24 10:00 01/17/24 10:02 Temperature Pulse Rate 70 Respiratory Rate 20 Blood Pressure 102/62 96/62 Pulse Oximetry 100 Oxygen Delivery Method Oxygen Flow Rate 01/17/24 10:02 01/17/24 10:04 01/17/24 10:04 Temperature Pulse Rate 73 74 Respiratory Rate 19 22 Blood Pressure 95/64 Pulse Oximetry 100 100 Oxygen Delivery Method Oxygen Flow Rate 01/17/24 10:05 01/17/24 10:05 01/17/24 10:06 Temperature Pulse Rate 75 73 Respiratory Rate 21 23 Blood Pressure 113/61 Pulse Oximetry 100 100 Oxygen Delivery Method Oxygen Flow Rate 01/17/24 10:08 01/17/24 10:10 01/17/24 10:10 Temperature Pulse Rate 73 72 Respiratory Rate 20 15 Blood Pressure 119/70 Pulse Oximetry 100 99 Oxygen Delivery Method Room Air Oxygen Flow Rate 01/17/24 10:12 01/17/24 10:14 01/17/24 10:33 Temperature Pulse Rate 74 72 75 Respiratory Rate 39 H 26 H 19 Blood Pressure Pulse Oximetry 100 92 Oxygen Delivery Method Oxygen Flow Rate 01/17/24 10:34 01/17/24 10:35 01/17/24 10:35 Temperature Pulse Rate 73 72 Respiratory Rate 13 14 Blood Pressure 96/53 L Pulse Oximetry 97 100 Oxygen Delivery Method Oxygen Flow Rate 01/17/24 10:36 01/17/24 10:38 01/17/24 10:40 Temperature Pulse Rate 71 74 Respiratory Rate 21 19 Blood Pressure 100/55 L Pulse Oximetry 100 100 Oxygen Delivery Method Room Air Oxygen Flow Rate 01/17/24 10:40 01/17/24 10:42 01/17/24 10:44 Temperature Pulse Rate 71 76 75 Respiratory Rate 14 15 23 Blood Pressure Pulse Oximetry 100 99 99 Oxygen Delivery Method Oxygen Flow Rate 01/17/24 10:45 01/17/24 10:45 01/17/24 10:46 Temperature Pulse Rate 74 75 Respiratory Rate Blood Pressure 99/56 L Pulse Oximetry 99 98 Oxygen Delivery Method Oxygen Flow Rate 01/17/24 10:48 01/17/24 10:50 01/17/24 10:50 Temperature Pulse Rate 76 74 Respiratory Rate 20 Blood Pressure 96/54 L Pulse Oximetry 99 98 Oxygen Delivery Method Oxygen Flow Rate 01/17/24 10:52 01/17/24 10:54 01/17/24 10:55 Temperature Pulse Rate 77 74 Respiratory Rate 20 Blood Pressure 87/54 L Pulse Oximetry 99 98 Oxygen Delivery Method Room Air Oxygen Flow Rate 01/17/24 10:55 01/17/24 10:56 01/17/24 10:58 Temperature Pulse Rate 75 73 74 Respiratory Rate 28 H 14 14 Blood Pressure Pulse Oximetry 98 98 99 Oxygen Delivery Method Oxygen Flow Rate 01/17/24 11:00 01/17/24 11:00 01/17/24 11:02 Temperature Pulse Rate 75 77 Respiratory Rate 18 Blood Pressure 89/51 L Pulse Oximetry 99 98 Oxygen Delivery Method Oxygen Flow Rate 01/17/24 11:04 01/17/24 11:06 01/17/24 11:08 Temperature Pulse Rate 73 74 75 Respiratory Rate 22 12 19 Blood Pressure Pulse Oximetry 99 99 98 Oxygen Delivery Method Oxygen Flow Rate 01/17/24 11:09 01/17/24 11:09 01/17/24 11:10 Temperature Pulse Rate 72 Respiratory Rate 18 Blood Pressure 99/55 L 96/58 L Pulse Oximetry 100 Oxygen Delivery Method Oxygen Flow Rate 01/17/24 11:10 01/17/24 11:12 01/17/24 11:16 Temperature Pulse Rate 75 75 Respiratory Rate 18 28 H Blood Pressure 91/53 L Pulse Oximetry 99 97 Oxygen Delivery Method Oxygen Flow Rate 01/17/24 11:16 01/17/24 11:20 01/17/24 11:20 Temperature Pulse Rate 74 77 Respiratory Rate 16 21 Blood Pressure 103/63 Pulse Oximetry 98 99 Oxygen Delivery Method Room Air Oxygen Flow Rate 01/17/24 11:25 01/17/24 11:25 01/17/24 11:30 Temperature Pulse Rate 75 Respiratory Rate 14 Blood Pressure 96/57 L 96/61 Pulse Oximetry 99 Oxygen Delivery Method Oxygen Flow Rate 01/17/24 11:30 01/17/24 11:35 01/17/24 11:35 Temperature Pulse Rate 75 74 Respiratory Rate 14 21 Blood Pressure 105/58 L Pulse Oximetry 99 99 Oxygen Delivery Method Oxygen Flow Rate 01/17/24 11:40 01/17/24 11:40 01/17/24 11:45 Temperature Pulse Rate 73 Respiratory Rate 13 Blood Pressure 88/54 L 90/61 Pulse Oximetry 98 Oxygen Delivery Method Room Air Oxygen Flow Rate 01/17/24 11:45 01/17/24 11:50 01/17/24 11:50 Temperature Pulse Rate 89 74 Respiratory Rate 15 Blood Pressure 92/64 Pulse Oximetry 99 98 Oxygen Delivery Method Oxygen Flow Rate 01/17/24 11:54 01/17/24 11:55 01/17/24 11:55 Temperature Pulse Rate 70 72 Respiratory Rate 11 L 12 Blood Pressure 96/57 L Pulse Oximetry 99 98 Oxygen Delivery Method Oxygen Flow Rate 01/17/24 12:00 01/17/24 12:01 01/17/24 12:01 Temperature Pulse Rate 72 71 Respiratory Rate 22 19 Blood Pressure 96/59 L Pulse Oximetry 98 98 Oxygen Delivery Method Room Air Oxygen Flow Rate 01/17/24 12:05 01/17/24 12:05 01/17/24 12:10 Temperature Pulse Rate 72 Respiratory Rate 20 Blood Pressure 86/53 L 86/52 L Pulse Oximetry 97 Oxygen Delivery Method Oxygen Flow Rate 01/17/24 12:10 01/17/24 12:15 01/17/24 12:15 Temperature Pulse Rate 75 70 Respiratory Rate 18 14 Blood Pressure 89/55 L Pulse Oximetry 98 99 Oxygen Delivery Method Oxygen Flow Rate 01/17/24 12:20 01/17/24 12:20 01/17/24 12:25 Temperature Pulse Rate 69 69 Respiratory Rate 15 12 Blood Pressure 90/52 L Pulse Oximetry 98 97 Oxygen Delivery Method Oxygen Flow Rate 01/17/24 12:25 01/17/24 12:30 01/17/24 12:30 Temperature Pulse Rate 67 Respiratory Rate 13 Blood Pressure 94/54 L 92/46 L Pulse Oximetry 98 Oxygen Delivery Method Oxygen Flow Rate 01/17/24 12:34 01/17/24 12:34 01/17/24 12:35 Temperature Pulse Rate 73 Respiratory Rate 22 Blood Pressure 86/50 L 81/53 L Pulse Oximetry 99 Oxygen Delivery Method Oxygen Flow Rate 01/17/24 12:35 01/17/24 12:40 01/17/24 12:41 Temperature Pulse Rate 70 94 H Respiratory Rate 12 27 H Blood Pressure 99/65 Pulse Oximetry 99 97 Oxygen Delivery Method Oxygen Flow Rate 01/17/24 12:41 01/17/24 12:45 01/17/24 12:45 Temperature Pulse Rate 92 H 89 Respiratory Rate 17 25 H Blood Pressure 97/60 Pulse Oximetry 98 98 Oxygen Delivery Method Oxygen Flow Rate 01/17/24 12:50 01/17/24 12:50 01/17/24 12:55 Temperature Pulse Rate 74 74 Respiratory Rate 14 20 Blood Pressure 90/51 L Pulse Oximetry 98 97 Oxygen Delivery Method Oxygen Flow Rate 01/17/24 12:55 01/17/24 13:00 01/17/24 13:01 Temperature Pulse Rate 72 Respiratory Rate 22 Blood Pressure 86/50 L 92/53 L Pulse Oximetry 98 Oxygen Delivery Method Oxygen Flow Rate 01/17/24 13:01 01/17/24 13:05 01/17/24 13:05 Temperature Pulse Rate 76 73 Respiratory Rate 20 17 Blood Pressure 86/55 L Pulse Oximetry 100 98 Oxygen Delivery Method Oxygen Flow Rate 01/17/24 13:10 01/17/24 13:10 01/17/24 13:14 Temperature Pulse Rate 73 72 Respiratory Rate 23 Blood Pressure 83/54 L Pulse Oximetry 98 98 Oxygen Delivery Method Oxygen Flow Rate 01/17/24 13:14 01/17/24 13:20 01/17/24 13:20 Temperature Pulse Rate 72 Respiratory Rate 13 Blood Pressure 93/54 L 89/54 L Pulse Oximetry 98 Oxygen Delivery Method Oxygen Flow Rate 01/17/24 13:25 01/17/24 13:25 01/17/24 13:30 Temperature Pulse Rate 73 76 Respiratory Rate 19 Blood Pressure 87/53 L Pulse Oximetry 97 98 Oxygen Delivery Method Oxygen Flow Rate 01/17/24 13:40 01/17/24 13:50 01/17/24 14:00 Temperature Pulse Rate 70 72 Respiratory Rate 20 18 Blood Pressure 88/49 L Pulse Oximetry 99 98 Oxygen Delivery Method Oxygen Flow Rate 01/17/24 14:00 01/17/24 14:15 Temperature 97.9 F Pulse Rate 73 68 Respiratory Rate 20 16 Blood Pressure 115/64 Pulse Oximetry 97 98 Oxygen Delivery Method Room Air Oxygen Flow Rate 0 Oxygen Delivery Method Room Air Oxygen Flow Rate 0 Narrative Exam Narrative: GENERAL: This is a well-nourished, well-developed patient, in no apparent distress. HEAD: Atraumatic. Normocephalic. No temporal or scalp tenderness. EYES: Pupils equal round and reactive. Extraocular motions intact. No scleral icterus. No injection or drainage. ENT: Mucous membranes pink and moist. NECK: Trachea midline. No JVD, bruits or lymphadenopathy. Supple, nontender, no meningeal signs. CARDIOVASCULAR: Regular rate and rhythm without murmurs, gallops, or rubs. RESPIRATORY: Clear to auscultation. GASTROINTESTINAL: Abdomen soft, non-tender, nondistended. EXTREMITIES: Trace pedal edema. NEUROLOGIC: Alert, oriented, speech fluent, full upper and lower motor strength, no focal deficits evident. DERMATOLOGIC: No rashes or skin lesions. Objective Imaging Abdomen/pelvis CTA: Radiologist's impression: Nodular appearance liver s appearing consistent with cirrhosis as well as splenomegaly. Cystic foci within the pancreas as well as complex cystic mass within the pancreatic head and ductal dilation. Overall it is stable compared to prior exam. No inflammatory change within the bowel. No contrast pooling or extravasation within the bowel as site of active hemorrhage. Labs 01/17/24 11:15 01/17/24 04:15 Labs: Laboratory Results - last 24 hr 01/17/24 01/17/24 01/17/24 04:15 07:33 11:15 WBC 6.6 7.3 RBC 3.57 L 2.99 L Hgb 9.4 L 7.9 L 8.9 L Hct 28.8 L 24.5 L 26.2 L MCV 80.7 82.0 MCH 26.3 26.5 MCHC 32.6 32.3 RDW 19.4 H 19.2 H Plt Count 139 L 118 L Neut % (Auto) 51.6 72.7 D Lymph % (Auto) 31.7 16.5 L [place] % (Auto) 11.5 9.1 Eos % (Auto) 4.4 H 1.3 L Baso % (Auto) 0.8 0.4 Neut # (Auto) 3400 5300 Lymph # (Auto) 2100 1200 [place] # (Auto) 800 700 Eos # (Auto) 300 100 Baso # (Auto) 100 0 PT 17.5 H INR 1.5 H APTT 38 H Sodium 139 Potassium 3.4 Chloride 107 Carbon Dioxide 27 BUN 14 Creatinine 0.74 Estimated GFR > 60 BUN/Creatinine Ratio 18.9 Glucose 109 Calcium 8.9 Total Bilirubin 1.2 AST 98 H ALT 59 H Alkaline Phosphatase 93 Total Protein 6.8 Albumin 3.1 L Globulin 3.7 Albumin/Globulin Ratio 0.8 L Ethyl Alcohol < 10 Blood Type A Positive Antibody Screen Negative Crossmatch See Detail Assessment & Plan Assessment and plan (1) GI bleed: Qualifiers: GI bleed type/associated pathology: anorectal hemorrhage Qualified Code(s): K62.5 - Hemorrhage of anus and rectum Status: Acute (2) Bleeding hemorrhoids: Status: Acute (3) Anemia due to blood loss, acute: Status: Acute (4) Cirrhosis: Qualifiers: Hepatic cirrhosis type: alcoholic cirrhosis Ascites presence: with ascites Qualified Code(s): K70.31 - Alcoholic cirrhosis of liver with ascites Status: Acute (5) EV (esophageal varices): Problem details: Ruptured Qualifiers: Esophageal varices type: secondary Esophageal varices bleeding: with bleeding Qualified Code(s): I85.11 - Secondary esophageal varices with bleeding Status: Acute (6) Chronic pancreatitis due to chronic alcoholism: Status: Acute (7) Alcohol use disorder, severe, in early remission: Status: Acute (8) Acquired hypothyroidism: Status: Chronic (9) Anxiety: Status: Chronic (10) Pancreatic lesion: Problem details: concerning for cancer on surveilance CT 2022 Status: Acute Plan 64-year-old woman with recurrent gastrointestinal bleeding due to esophageal varices and internal hemorrhoids presents with bright red bleeding per rectum, likely due to external hemorrhoids. She was transfused 1 unit of packed red blood cells in the emergency department. She is hemodynamically stable. She is admitted for surgical ligation tomorrow morning. Dr. ricketts excellent care is greatly appreciated. Continue routine medications. NPO after midnight. Monitor serial hematocrits and transfuse further if hemodynamically unstable or significant blood loss persists. Time-Based Coding :: [TOTAL MINUTES] spent with patient and on the chart (including review of chart, obtaining history, exam, reviewing outside data, placing orders, documenting exam and treatment plan, and counseling patient) on [DATE].
[2024-01-17] MEDS: DEXTROSE 5%-0.9% NS 1,000 ML 100 ML IV (16:12)
[2024-01-17] MEDS: HYDROMORPHONE 2 MG TABLET PO (17:48)
[2024-01-17] MEDS: BACLOFEN 10 MG TABLET PO (17:48)
[2024-01-17] MEDS: POTASSIUM CHLORIDE 20 MEQ TAB PO (20:59)
[2024-01-17] MEDS: PREGABALIN 75 MG CAPSULE PO (20:59)
[2024-01-17] MEDS: LORazepam 1 MG TABLET PO (20:59)
[2024-01-17] MEDS: RIFAXIMIN 200 MG TABLET 550 MG PO (21:00)
[2024-01-18] VITALS (16 sets, daily range): BP systolic 91–124; BP diastolic 56–77; PULSE 66–92; RESP 12–16; TEMP 36.3–37.8; O2SAT 96–100
[2024-01-18] MEDS: DEXTROSE 5%-0.9% NS 1,000 ML 100 ML IV ×3 (01:59→22:29)
[2024-01-18] MEDS: LEVOTHYROXINE 100 MCG TABLET PO (05:40)
[2024-01-18 06:31] LABS: Add Manual Diff / Slide Review NO; Basophils Absolute Auto 0 /uL (0-100); Basophils Percent Auto 0.4 % (0-2); Eosinophils Absolute Auto 100 /uL (0-450); Eosinophils Percent Auto 3.8 % (2-4); Hematocrit 21.5 % (36-46); Hemoglobin 7.2 g/dL (12.0-16.0); Lymphocytes Absolute Auto 1100 /uL (1100-4500); Lymphocytes Percent Auto 32.4 % (25-40); Mean Corpuscular HGB Conc 33.3 % (30-36); Mean Corpuscular Hemoglobin 27.7 PG (26-34); Mean Corpuscular Volume 83.2 fL (80-100); Monocytes Absolute Auto 500 /uL (0-900); Monocytes Percent Auto 15.1 % (3-14); Neutrophils Absolute Auto 1600 /uL (1500-7000); Neutrophils Percent Auto 48.3 % (50-75); Platelet Count 75 X10^3/uL (150-400); Red Blood Cell Count 2.58 X10^6/uL (4.0-5.2); Red Cell Distribution Width 19.1 % (11.6-14.8); White Blood Cell Count 3.2 X10^3/uL (4.5-11.0)
[2024-01-18 06:44] LABS: BUN Creatinine Ratio 18.8 (6-22); Blood Urea Nitrogen 13 mg/dL (7-17); Calcium 7.9 mg/dL (8.4-10.2); Carbon Dioxide 26 mmol/L (22-32); Chloride 111 mmol/L (98-107); Estimated Glomerular Filt Rate > 60 mL/min (>60); Glucose 118 mg/dL (80-110); HEMOLYSIS < 15 (0-50); Potassium 3.5 mmol/L (3.4-5.1); Sodium 135 mmol/L (137-145)
[2024-01-18] MEDS: FUROSEMIDE 20 MG TABLET 40 MG PO (09:56)
[2024-01-18] MEDS: MAGNESIUM OXIDE 400 MG TABLET PO (09:56)
[2024-01-18] MEDS: SPIRONOLACTONE 25 MG TABLET 50 MG PO (09:56)
[2024-01-18] MEDS: LIOTHYRONINE 5 MCG TABLET 10 MCG PO (09:56)
[2024-01-18] MEDS: PREGABALIN 75 MG CAPSULE PO ×3 (09:56→20:47)
[2024-01-18] MEDS: POTASSIUM CHLORIDE 20 MEQ TAB PO ×2 (09:56→20:47)
[2024-01-18] MEDS: RIFAXIMIN 200 MG TABLET 550 MG PO (10:01)
[2024-01-18] MEDS: PRENATAL VIT,CALC/IRON/FOLIC 1 TABLET 1 TAB PO (10:02)
[2024-01-18] MEDS: BACLOFEN 10 MG TABLET PO ×2 (10:08→15:33)
[2024-01-18] MEDS: TRANEXAMIC ACID 1,000 MG in SODIUM CHLORIDE 0.9% 100 ML 200 MG IV (11:53)
--- NOTE | 2024-01-18 12:16 | P.PN_ITS ---
Subjective Subjective Date Patient Seen: 01/18/24 Time Patient Seen: 12:16 Interval history: hemorrhoids continue to bleed. platelets are low, INR 1.5. +liver cirrhosis. Exam Vital Signs (past 8 hours): - 01/18/24 05:10 01/18/24 08:00 01/18/24 10:20 Temperature 97.7 F 97.9 F 97.9 F Pulse Rate 72 72 70 Respiratory Rate 16 16 16 Blood Pressure 102/60 96/59 L 94/67 Pulse Oximetry 97 97 Oxygen Flow Rate 0 0 01/18/24 10:40 01/18/24 12:00 Temperature 98.5 F 97.9 F Pulse Rate 75 66 Respiratory Rate 16 16 Blood Pressure 105/56 L 101/69 Pulse Oximetry 100 Oxygen Flow Rate 0 Oxygen Delivery Method Room Air Oxygen Flow Rate 0 Narrative Exam Narrative: comfortable, pale, receiving blood. reports external hems and prolapsing internal hems that occassionally bleed. chronic anemia. Objective Labs 01/18/24 06:05 01/18/24 06:15 Labs: Laboratory Results - last 24 hr 01/17/24 01/18/24 01/18/24 04:15 06:05 06:15 WBC 3.2 L D RBC 2.58 L Hgb 7.2 L Hct 21.5 L MCV 83.2 MCH 27.7 MCHC 33.3 RDW 19.1 H Plt Count 75 L Neut % (Auto) 48.3 L D Lymph % (Auto) 32.4 Power % (Auto) 15.1 H Eos % (Auto) 3.8 Baso % (Auto) 0.4 Neut # (Auto) 1600 Lymph # (Auto) 1100 Power # (Auto) 500 Eos # (Auto) 100 Baso # (Auto) 0 Sodium 135 L Potassium 3.5 Chloride 111 H Carbon Dioxide 26 BUN 13 Creatinine 0.69 Estimated GFR > 60 BUN/Creatinine Ratio 18.8 Glucose 118 H Calcium 7.9 L Blood Type A Positive Antibody Screen Negative Crossmatch See Detail [facility] Medical History Multilevel spondylosis Back pain Alcoholic cirrhosis GERD (gastroesophageal reflux disease) Pancytopenia Thrombocytopenia Anemia due to blood loss, acute Bleeding internal hemorrhoids Pancreatic lesion (~04/18/23) Weakness of left upper extremity Stroke Anemia, macrocytic Anemia, blood loss Alcohol use disorder, severe, in early remission Hemorrhoids, internal Depression Shortness of breath Hypercalcemia Weight gain Ascites due to alcoholic cirrhosis SBO (small bowel obstruction) Pancreatitis Intermittent palpitations (04/2019) History of blood transfusion (10/2015) Coagulation disorder (2012) Hypothyroidism Hypertension History of heavy periods (2014) Ovarian cyst (2012) Painful menstrual periods (2012) Measles Mumps Chicken pox Eczema (2014) Psoriasis (2014) PTSD (post-traumatic stress disorder) (1999) Anxiety EV (esophageal varices) (10/2015) Portal hypertensive gastropathy (05/2015) Nonalcoholic fatty liver disease GI bleeding (2015) Cirrhosis (2012) Cardiac arrhythmia History of alcohol abuse (12/27/15) Surgical History H/O bilateral oophorectomy History of appendectomy History of inguinal hernia repair History of cholecystectomy History of esophagogastroduodenoscopy (EGD) (05/2015) Status post laparoscopic supracervical hysterectomy (08/25/16) Status post hysteroscopy (06/17/11) Status post hernia repair Status post appendectomy History of esophagogastroduodenoscopy (EGD) (01/2009) Status post colonoscopy (01/2009) Family History Grandfather Heart disease [place] (myocardial infarction) Grandmother Alcoholism Father No problems noted. Mother No problems noted. Grandfather Heart disease Grandmother Colon cancer Brother No problems noted. Social History household members: family Smoking Status: Never smoker alcohol intake: former Assessment & Plan Assessment & Plan narrative: receiving 1 unit PRBC for continued rectal bleeding. thrombocytopenia anemia Plan: TXA now. order platelets for OR tomorrow. Getting PPH stapler x2 from [place] for PPH proctopexy tomorrow. Time-Based Coding :: [TOTAL MINUTES] spent with patient and on the chart (including review of chart, obtaining history, exam, reviewing outside data, placing orders, documenting exam and treatment plan, and counseling patient) on [DATE].
--- NOTE | 2024-01-18 14:41 | CM.DANOTE ---
Patient is a 64 yo female who was admitted on 01/17/24 for Bleed. Pt has [facility] and [facility] for insurance and her PCP is Divina Lopes. EMR was reviewed. Per MD, patient has history of GI bleeds, alcohol abuse, and end stage renal disease and cirrhosis. Pt admitted for GI bleed and per Surgeon plan is surgical intervention for internal hemorrhoid bleed and varicies. Pt to go to OR tomorrow and NPO at midnight. SW met bedside with pt and explained role and confirmed that she resides here in [place] with her parents. She indicated that she drives, and is independent, loves gardening and spends many hours outside. Pt does not use DME for ambulation, does not drive, and denies any hx of HH or SNF and does not feel she would be homebound. Pt states her parents are elderly but also very active and independent and alert even though they are reaching age 90. Pt states her parents can provide transport and assist as needed pending on her needs post op. Pt also has DPOA pwk to make her mom her POA and Advanced Directives ready and requesting notary and no notary available today but will be available Wed and Thurs this week and pt acknowledges understanding. Pt confirms that she is not in need of ETOH resources as she typically still does not drink but on occasion will have a one day binge with alcohol. Plan: SW to follow closely for surgical intervention tomorrow to confirm safe plan of home with parent assist and any further identified discharge planning needs. REBA Leung Discharge Planning/Care Management Advanced directive, confirm from FAMILY Start: 01/17/24 15:15 Freq: Q24H Status: Active Protocol: Document 01/17/24 15:15 SB (Rec: 01/17/24 15:20 SB [id number]) Advance Directive, confirm on record Time 15:20 Person contacted Patient and patient's mother Copy received No CM Discharge Assessment Start: 01/18/24 14:22 Freq: Status: Active Protocol: Document 01/18/24 14:23 BF (Rec: 01/18/24 14:41 BF [id number]) Discharge Planning Assessment Assigned Watch Assembler REBA Newby DPOA/Assigned Designee Name Mom Brigitte Chand waiting for notary for offical DPOA Advance Directives? No: wants to sign in front of notary on Thursday01/18/24 Advance Directives on File No History Provided By Patient,Family Member,Medical Record Has Patient been admitted in last 30 Yes days? Comment Here in December 2023 last month for similar Prior Living Arrangements House Household Members family Type of transporation used prior to Relies on Others admit Independent with ADL's Yes Is patient alert and oriented? Yes Needs Assistance With Managing Medications Caregiver for Another No Barriers to Discharge No Comment Patient seemed alert during conversation. Does have substance abuse history. Discharge Plan Home Transportation Arrangement Family or friends Referrals Initiated None needed Whiteboard Updated in Patient Room with Yes name and ext. # of Watch Assembler Review Status In Process Please Provide Date Initial DC 01/18/24 Assessment Was Performed Next Review Type Continued Stay Review
--- NOTE | 2024-01-18 14:48 | PM.PN.1 ---
Subjective Subjective Interval history: 64 F admitted with acute blood loss anemia due to hemorrhoidal bleeding. Surgery plans to do hemorrhoidectomy, surgery moved to tomorrow to get appropriate equipment from OSH. Still having hematochezia today. H/h overall downtrending over the past 24 hours as well. No chest pain or shortness of breath. Hg was 7.2 and was ordered for 1U PRBC, Plt 75 as well and patient was ordered for Plt transfusion for surgical procedure, though now delayed until tomorrow. Exam Vital Signs (past 8 hours): - 01/18/24 08:00 01/18/24 10:20 01/18/24 10:40 Temperature 97.9 F 97.9 F 98.5 F Pulse Rate 72 70 75 Respiratory Rate 16 16 16 Blood Pressure 96/59 L 94/67 105/56 L Pulse Oximetry 97 Oxygen Flow Rate 0 01/18/24 12:00 01/18/24 12:55 Temperature 97.9 F 98.3 F Pulse Rate 66 74 Respiratory Rate 16 16 Blood Pressure 101/69 105/77 Pulse Oximetry 100 Oxygen Flow Rate 0 Oxygen Delivery Method Room Air Oxygen Flow Rate 0 Narrative Exam Narrative: GENERAL: This is a well-nourished, well-developed patient, in no apparent distress. HEAD: Atraumatic. Normocephalic. No temporal or scalp tenderness. EYES: Pupils equal round and reactive. Extraocular motions intact. No scleral icterus. No injection or drainage. ENT: Mucous membranes pink and moist. NECK: Trachea midline. No JVD, bruits or lymphadenopathy. Supple, nontender, no meningeal signs. CARDIOVASCULAR: Regular rate and rhythm without murmurs, gallops, or rubs. RESPIRATORY: Clear to auscultation. GASTROINTESTINAL: Abdomen soft, non-tender, nondistended. EXTREMITIES: Trace pedal edema. NEUROLOGIC: Alert, oriented, speech fluent, full upper and lower motor strength, no focal deficits evident. DERMATOLOGIC: No rashes or skin lesions. Objective Labs 01/18/24 06:05 01/18/24 06:15 Labs: Laboratory Results - last 24 hr 01/17/24 01/18/24 01/18/24 04:15 06:05 06:15 WBC 3.2 L D RBC 2.58 L Hgb 7.2 L Hct 21.5 L MCV 83.2 MCH 27.7 MCHC 33.3 RDW 19.1 H Plt Count 75 L Neut % (Auto) 48.3 L D Lymph % (Auto) 32.4 [place] % (Auto) 15.1 H Eos % (Auto) 3.8 Baso % (Auto) 0.4 Neut # (Auto) 1600 Lymph # (Auto) 1100 [place] # (Auto) 500 Eos # (Auto) 100 Baso # (Auto) 0 Sodium 135 L Potassium 3.5 Chloride 111 H Carbon Dioxide 26 BUN 13 Creatinine 0.69 Estimated GFR > 60 BUN/Creatinine Ratio 18.8 Glucose 118 H Calcium 7.9 L Blood Type A Positive Antibody Screen Negative Crossmatch See Detail [facility] Medical History Multilevel spondylosis Back pain Alcoholic cirrhosis GERD (gastroesophageal reflux disease) Pancytopenia Thrombocytopenia Anemia due to blood loss, acute Bleeding internal hemorrhoids Pancreatic lesion (~04/18/23) Weakness of left upper extremity Stroke Anemia, macrocytic Anemia, blood loss Alcohol use disorder, severe, in early remission Hemorrhoids, internal Depression Shortness of breath Hypercalcemia Weight gain Ascites due to alcoholic cirrhosis SBO (small bowel obstruction) Pancreatitis Intermittent palpitations (04/2019) History of blood transfusion (10/2015) Coagulation disorder (2012) Hypothyroidism Hypertension History of heavy periods (2014) Ovarian cyst (2012) Painful menstrual periods (2012) Measles Mumps Chicken pox Eczema (2014) Psoriasis (2014) PTSD (post-traumatic stress disorder) (1999) Anxiety EV (esophageal varices) (10/2015) Portal hypertensive gastropathy (05/2015) Nonalcoholic fatty liver disease GI bleeding (2015) Cirrhosis (2012) Cardiac arrhythmia History of alcohol abuse (12/27/15) Surgical History H/O bilateral oophorectomy History of appendectomy History of inguinal hernia repair History of cholecystectomy History of esophagogastroduodenoscopy (EGD) (05/2015) Status post laparoscopic supracervical hysterectomy (08/25/16) Status post hysteroscopy (06/17/11) Status post hernia repair Status post appendectomy History of esophagogastroduodenoscopy (EGD) (01/2009) Status post colonoscopy (01/2009) Family History Grandfather Heart disease [place] (myocardial infarction) Grandmother Alcoholism Father No problems noted. Mother No problems noted. Grandfather Heart disease Grandmother Colon cancer Brother No problems noted. Social History household members: family Smoking Status: Never smoker alcohol intake: former Assessment & Plan Assessment & Plan narrative: 1. Acute blood loss anemia secondary to hemorrhoidal bleeding 2. Acute on chronic thrombocytopenia 3. Liver induced cirrhosis and portal hypertension with known esophageal varices, present on admission and active. 4. Recent admission for baclofen withdrawal, present on admission and active. 5. Polypharmacy, present on admission and active. 6. Chronic back pain, present on admission and active. 7. Chronic pancreatitis, stable. 8. Anxiety and depression, stable. 9. Hypothyroidism, present on admission and stable. Plan: - ordered 1U PRBC today, surgeon ordered Plt for tomorrow given lower in setting of acute blood loss. Will repeat CBC this evening and tomorrow morning to monitor. - surgery awaiting equipment for OR, planned for tomorrow now, discussed with surgeon today. - continue home medications including diuretics, stable today. Consider holding diuretics if further bleeding. Dispo: inpatient given persistent downtrend in h/h past observation timeframe necessitating transfusion today. She is a possible discharge home tomorrow depending on h/h trend after transfusion today, and operative procedures tomorrow. However suspect unlikely and more likely discharge in another 2-3 days. Time-Based Coding :: [TOTAL MINUTES] spent with patient and on the chart (including review of chart, obtaining history, exam, reviewing outside data, placing orders, documenting exam and treatment plan, and counseling patient) on [DATE].
--- NOTE | 2024-01-18 15:06 | DIET.CONS ---
Dietary Consultation Note Admission Date: 01/17/2024 12:42 Assessment: 64 y F admitted with acute blood loss anemia. PMH of cirrhosis and portal hypertension w/ esophageal varices. Nutrition consulted for weight loss. Met with pt and family member at bedside, who reports 15 lb weight loss since an adverse response to a new medication 1 month ago that resulted in increased nausea. Diet recall: 4-5 small snacks/meal cheese and crackers fruit [employer] frozen meal cooked meal, homemade, small portion will sometimes have Ensure Chooses low sodium items, reduced salt added to meals Nutrition focused physical exam: -Mild muscle loss temporalis, clavicle region, interosseous -Mild subcutaneous fat loss buccal, orbital triceps Ht: 162.56 cm Wt: 58.967 kg BMI: 22.3 UBW: 65.9 kg per pt (10% weight loss in 1 month, severe); 62 kg on 01/01/24 per EMR (5% loss within 3 weeks, severe) , limited non-repeating weight hx per EMR, noted ascites Last BM: 01/17/24 (01/17/24 15:03) MNA: 7 Carrington Score: 19 Diet: 01/18/24 Lunch General (Regular) Diet Diet Modifications: Food Texture: Level 7 - Regular Liquid Consistency: Level 0 - Thin 01/19/24 00:01 NPO Diet Diet Modifications: NPO Type: NPO except for Meds Nutrition Percent Meal Consumed 50% 01/18/24 13:23 Percent Meal Consumed 75% 01/17/24 18:00 Labs: RBC 2.58 X10^6/uL (4.0-5.2) L 01/18/24 06:05 Hgb 7.2 g/dL (12.0-16.0) L 01/18/24 06:05 Hct 21.5 % (36-46) L 01/18/24 06:05 Creatinine 0.69 mg/dL (0.52-1.04) 01/18/24 06:15 Nutrition Diagnosis: Moderate acute protein calorie malnutrition r/t increased nutrient needs in setting of cirrhosis as evidenced by 5% weight loss in 3 weeks, severe, mild muscle wasting (temporalis, deltoid, pectoralis, interosseous) and mild subcutaneous fat loss (buccal, orbital, triceps). Interventions: 1. ONS enlive daily, when diet resumes after surgery 2. Provided educ on protein and energy needs, sources, protein at each snack/meal EER: [id number] kcals (30kcals/kg) 70-80 g protein (1.2-1.5 g/kg of IBW per liver disease, PCM) Monitoring/Evaluations: po intakes, ons tolerance Electronically Signed by: Priscilla Lopes 01/18/24 15:06 Clinical Dietitian [address] [id number]
[2024-01-18] MEDS: LACTULOSE 20 GM/30 ML SOLUTION 10 GM PO (15:33)
--- NOTE | 2024-01-18 18:39 | TAR.TRANSNT ---
Entered T 100.0 in error, oral temp was 98.3
--- NOTE | 2024-01-18 18:53 | PC.NURSE ---
Notified MD Fonseca that pt's Hgb dipped more than 1 pt overnight and BP was low; put in orders for 1 U blood transfusion, pt tolerated well. Ordered platelets had to be special ordered and did not arrive until 1630; patient currently tolerating well. BP improves after transfusions. Pt expelling large amounts (200-400mL per movement) of clotted blood during bowel movements; pt denies dizziness or weakness. Pt remains in bed d/t low BP and bleeding and risk of falls. aware. Will continue to monitor.
[2024-01-18 20:19] LABS: Add Manual Diff / Slide Review NO; Basophils Absolute Auto 0 /uL (0-100); Basophils Percent Auto 0.4 % (0-2); Eosinophils Absolute Auto 100 /uL (0-450); Eosinophils Percent Auto 2.5 % (2-4); Hemoglobin 7.8 g/dL (12.0-16.0); Lymphocytes Absolute Auto 1100 /uL (1100-4500); Lymphocytes Percent Auto 17.8 % (25-40); Mean Corpuscular HGB Conc 33.8 % (30-36); Mean Corpuscular Hemoglobin 28.2 PG (26-34); Mean Corpuscular Volume 83.4 fL (80-100); Monocytes Absolute Auto 900 /uL (0-900); Monocytes Percent Auto 14.3 % (3-14); Neutrophils Absolute Auto 3900 /uL (1500-7000); Platelet Count 91 X10^3/uL (150-400); Red Blood Cell Count 2.75 X10^6/uL (4.0-5.2); Red Cell Distribution Width 18.7 % (11.6-14.8)
[2024-01-18] MEDS: ACETAMINOPHEN 325 MG TABLET 650 MG PO (20:48)
[2024-01-18] MEDS: LORazepam 1 MG TABLET PO (20:49)
[2024-01-18] MEDS: HYDROMORPHONE 2 MG TABLET PO (20:49)
[2024-01-18] MEDS: RIFAXIMIN 200 MG TABLET PO (21:34)
[2024-01-19] VITALS (18 sets, daily range): BP systolic 93–110; BP diastolic 54–77; PULSE 65–83; RESP 11–19; TEMP 36–36.9; O2SAT 93–99; BMI 22.3
--- NOTE | 2024-01-19 02:36 | PC.NURSE ---
pt is a&o x 4. approximately @ 2015 pt complained of mild shaking/tremors. denied any pain. vital signs stable but had a temp of 100.1. was notified. gave tylenol 650 mg PO and temp came down to 99.4 on reassessment. she reported feeling much better. shaking has since then subsided with no reoccurrence. breath sounds CTA bilaterally with O2 sats of 96% on room air. active bowel sounds. denies nausea. has chronic back pain and was given PO dilaudid. wanted scds off overnight while resting. 1 person assist on the bedpan. bed alarm on and call light is within reach.
[2024-01-19 06:12] LABS: Add Manual Diff / Slide Review NO; Basophils Absolute Auto 0 /uL (0-100); Basophils Percent Auto 0.5 % (0-2); Eosinophils Absolute Auto 100 /uL (0-450); Eosinophils Percent Auto 3.5 % (2-4); Lymphocytes Absolute Auto 900 /uL (1100-4500); Lymphocytes Percent Auto 26.9 % (25-40); Mean Corpuscular HGB Conc 33.7 % (30-36); Mean Corpuscular Hemoglobin 28.2 PG (26-34); Mean Corpuscular Volume 83.7 fL (80-100); Monocytes Absolute Auto 500 /uL (0-900); Monocytes Percent Auto 14.3 % (3-14); Neutrophils Absolute Auto 1800 /uL (1500-7000); Neutrophils Percent Auto 54.8 % (50-75); Platelet Count 66 X10^3/uL (150-400); Red Blood Cell Count 2.48 X10^6/uL (4.0-5.2); Red Cell Distribution Width 18.8 % (11.6-14.8); White Blood Cell Count 3.3 X10^3/uL (4.5-11.0)
[2024-01-19 06:23] LABS: Hematocrit 20.8 % (36-46)
[2024-01-19] MEDS: LEVOTHYROXINE 100 MCG TABLET PO (06:28)
[2024-01-19 06:52] LABS: BUN Creatinine Ratio 15.3 (6-22); Blood Urea Nitrogen 11 mg/dL (7-17); Calcium 7.7 mg/dL (8.4-10.2); Carbon Dioxide 24 mmol/L (22-32); Chloride 113 mmol/L (98-107); Estimated Glomerular Filt Rate > 60 mL/min (>60); Glucose 120 mg/dL (80-110); HEMOLYSIS < 15 (0-50); Magnesium 1.6 mg/dL (1.6-2.3); Potassium 3.7 mmol/L (3.4-5.1); Sodium 135 mmol/L (137-145)
[2024-01-19 07:26] LABS: Add Manual Diff / Slide Review NO; Basophils Absolute Auto 0 /uL (0-100); Basophils Percent Auto 0.5 % (0-2); Eosinophils Absolute Auto 200 /uL (0-450); Eosinophils Percent Auto 3.9 % (2-4); Hematocrit 21.2 % (36-46); Hemoglobin 7.1 g/dL (12.0-16.0); Lymphocytes Absolute Auto 1000 /uL (1100-4500); Lymphocytes Percent Auto 25.6 % (25-40); Mean Corpuscular HGB Conc 33.6 % (30-36); Mean Corpuscular Hemoglobin 28.2 PG (26-34); Mean Corpuscular Volume 83.9 fL (80-100); Monocytes Absolute Auto 600 /uL (0-900); Monocytes Percent Auto 15.2 % (3-14); Neutrophils Absolute Auto 2200 /uL (1500-7000); Neutrophils Percent Auto 54.8 % (50-75); Platelet Count 77 X10^3/uL (150-400); Red Blood Cell Count 2.53 X10^6/uL (4.0-5.2); Red Cell Distribution Width 18.6 % (11.6-14.8)
[2024-01-19] MEDS: FUROSEMIDE 20 MG TABLET 40 MG PO (09:49)
[2024-01-19] MEDS: POTASSIUM CHLORIDE 20 MEQ TAB PO ×2 (09:49→20:19)
[2024-01-19] MEDS: SPIRONOLACTONE 25 MG TABLET 50 MG PO (09:49)
[2024-01-19] MEDS: PRENATAL VIT,CALC/IRON/FOLIC 1 TABLET 1 TAB PO (09:49)
[2024-01-19] MEDS: PREGABALIN 75 MG CAPSULE PO ×2 (09:49→20:19)
[2024-01-19] MEDS: MAGNESIUM OXIDE 400 MG TABLET PO (09:49)
[2024-01-19] MEDS: LIOTHYRONINE 5 MCG TABLET 10 MCG PO (09:49)
[2024-01-19] MEDS: RIFAXIMIN 200 MG TABLET 550 MG PO ×2 (10:39→20:18)
--- NOTE | 2024-01-19 11:14 | P.PN_ITS ---
Subjective Subjective Interval history: 64 F admitted with acute blood loss anemia due to hemorrhoidal bleeding. Surgery plans to do hemorrhoidectomy today. Less bleeding today but Hg 7 this AM again and ordered 1U PRBC prior to OR today. No chest pain or shortness of breath. Plt 77 as well and patient was ordered for Plt transfusion for surgical procedure by the surgeon yesterday. Exam Vital Signs (past 8 hours): - 01/19/24 04:00 01/19/24 08:00 01/19/24 10:22 Temperature 97.8 F 97.9 F 97.7 F Pulse Rate 69 69 65 Respiratory Rate 12 14 16 Blood Pressure 100/65 109/63 100/67 Pulse Oximetry 93 98 Oxygen Flow Rate 0 01/19/24 10:46 Temperature 98.1 F Pulse Rate 67 Respiratory Rate 16 Blood Pressure 107/68 Pulse Oximetry Oxygen Flow Rate Oxygen Delivery Method Room Air Oxygen Flow Rate 0 Narrative Exam Narrative: GENERAL: This is a well-nourished, well-developed patient, in no apparent distress. CARDIOVASCULAR: Regular rate and rhythm RESPIRATORY: No distress NEUROLOGIC: Alert, oriented, speech fluent, full upper and lower motor strength, no focal deficits evident. Objective Labs 01/19/24 07:00 01/19/24 05:40 Labs: Laboratory Results - last 24 hr 01/17/24 01/18/24 01/19/24 04:15 20:07 05:40 WBC 6.0 D 3.3 L RBC 2.75 L 2.48 L Hgb 7.8 L 7.0 L Hct 23.0 L 20.8 L* MCV 83.4 83.7 MCH 28.2 28.2 MCHC 33.8 33.7 RDW 18.7 H 18.8 H Plt Count 91 L 66 L Neut % (Auto) 65.0 54.8 Lymph % (Auto) 17.8 L 26.9 [place] % (Auto) 14.3 H 14.3 H Eos % (Auto) 2.5 3.5 Baso % (Auto) 0.4 0.5 Neut # (Auto) 3900 1800 Lymph # (Auto) 1100 900 L [place] # (Auto) 900 500 Eos # (Auto) 100 100 Baso # (Auto) 0 0 Sodium 135 L Potassium 3.7 Chloride 113 H Carbon Dioxide 24 BUN 11 Creatinine 0.72 Estimated GFR > 60 BUN/Creatinine Ratio 15.3 Glucose 120 H Calcium 7.7 L Magnesium 1.6 Blood Type A Positive Antibody Screen Negative Crossmatch See Detail 01/19/24 07:00 WBC 4.0 L RBC 2.53 L Hgb 7.1 L Hct 21.2 L MCV 83.9 MCH 28.2 MCHC 33.6 RDW 18.6 H Plt Count 77 L Neut % (Auto) 54.8 Lymph % (Auto) 25.6 [place] % (Auto) 15.2 H Eos % (Auto) 3.9 Baso % (Auto) 0.5 Neut # (Auto) 2200 Lymph # (Auto) 1000 L [place] # (Auto) 600 Eos # (Auto) 200 Baso # (Auto) 0 Sodium Potassium Chloride Carbon Dioxide BUN Creatinine Estimated GFR BUN/Creatinine Ratio Glucose Calcium Magnesium Blood Type Antibody Screen Crossmatch [facility] Medical History Multilevel spondylosis Back pain Alcoholic cirrhosis GERD (gastroesophageal reflux disease) Pancytopenia Thrombocytopenia Anemia due to blood loss, acute Bleeding internal hemorrhoids Pancreatic lesion (~04/18/23) Weakness of left upper extremity Stroke Anemia, macrocytic Anemia, blood loss Alcohol use disorder, severe, in early remission Hemorrhoids, internal Depression Shortness of breath Hypercalcemia Weight gain Ascites due to alcoholic cirrhosis SBO (small bowel obstruction) Pancreatitis Intermittent palpitations (04/2019) History of blood transfusion (10/2015) Coagulation disorder (2012) Hypothyroidism Hypertension History of heavy periods (2014) Ovarian cyst (2012) Painful menstrual periods (2012) Measles Mumps Chicken pox Eczema (2014) Psoriasis (2014) PTSD (post-traumatic stress disorder) (1999) Anxiety EV (esophageal varices) (10/2015) Portal hypertensive gastropathy (05/2015) Nonalcoholic fatty liver disease GI bleeding (2015) Cirrhosis (2012) Cardiac arrhythmia History of alcohol abuse (12/27/15) Surgical History H/O bilateral oophorectomy History of appendectomy History of inguinal hernia repair History of cholecystectomy History of esophagogastroduodenoscopy (EGD) (05/2015) Status post laparoscopic supracervical hysterectomy (08/25/16) Status post hysteroscopy (06/17/11) Status post hernia repair Status post appendectomy History of esophagogastroduodenoscopy (EGD) (01/2009) Status post colonoscopy (01/2009) Family History Grandfather Heart disease [place] (myocardial infarction) Grandmother Alcoholism Father No problems noted. Mother No problems noted. Grandfather Heart disease Grandmother Colon cancer Brother No problems noted. Social History household members: family Smoking Status: Never smoker alcohol intake: former Assessment & Plan Assessment & Plan narrative: 1. Acute blood loss anemia secondary to hemorrhoidal bleeding 2. Acute on chronic thrombocytopenia 3. Liver induced cirrhosis and portal hypertension with known esophageal varices, present on admission and active. 4. Recent admission for baclofen withdrawal, present on admission and active. 5. Polypharmacy, present on admission and active. 6. Chronic back pain, present on admission and active. 7. Chronic pancreatitis, stable. 8. Anxiety and depression, stable. 9. Hypothyroidism, present on admission and stable. Plan: - ordered 1U PRBC today again, surgeon ordered Plt for OR. Will repeat CBC again tomorrow post operatively. - continue home medications including diuretics, stable today. Consider holding diuretics if further bleeding. Dispo: inpatient. She is a possible discharge home tomorrow depending on h/h trend after transfusion today, and operative procedures. Likely 1-2 more days. Time-Based Coding :: [TOTAL MINUTES] spent with patient and on the chart (including review of chart, obtaining history, exam, reviewing outside data, placing orders, documenting exam and treatment plan, and counseling patient) on [DATE].
--- NOTE | 2024-01-19 12:25 | CM.DPC ---
DCP Cont. Reviewed EMR and team rounds for status updates. Pt is being taken to the OR today for hemorrhoid surgery. She also received a unit of blood today due to continued black stools. Per pt request, this LEAD PAINTER also assisted with completing the Healthcare Durable Power of Fatback Trimmer, sent a copy to medical records for scanning, and provided the original and a copy to the pt. Pt will likely d/c on Wed back home. She has friends that will transport her. Will continue to monitor for any further developing needs.
--- NOTE | 2024-01-19 15:03 | PM.PREOP ---
Pre-operative Note Interval Note History & Physical reviewed/Exam performed by Physician: Yes Changes to H&P: No
[2024-01-19] MEDS: DIBUCAINE 1% OINT 28 GM 1 APPLIC TOP (15:33)
[2024-01-19] MEDS: BUPIVACAINE 0.25% W/ EPI (PF) 10 ML VIAL 20 ML INJ (15:34)
--- NOTE | 2024-01-19 15:35 | SUR.OPER ---
Supine on padded OR bed, head on pillow, arms secured on padded arm boards at <90 degrees abduction, legs uncrossed, safety belt at thigh, tape over blanket over lower legs.
[2024-01-19] MEDS: TRANEXAMIC ACID 1,000 MG in SODIUM CHLORIDE 0.9% 100 ML 200 MG IV (15:39)
--- NOTE | 2024-01-19 15:55 | PM.OP.1 ---
Operative Date/Time/Diagnoses Date of procedure: 01/19/24 Time of procedure: 15:55 Pre-op diagnosis: Prolapsing hemorrhoids, active bleeding, cirrhosis Post-op diagnosis: same Procedure & Clinicians Procedure: PPH proctopexy Same procedure as scheduled: Yes Indications: Bleeding prolapsing hemorrhoids in the face of cirrhosis Surgeon: Belgica Macedo Click Yes if Unassisted: Yes Anesthesia Type: General Operative Notes Findings: Prolapsing internal hemorrhoid grade 3 with ulceration. PPH proctopexy revealed clear interruption of 2 of the hemorrhoidal veins and a partial of the 3rd. Staple line intact. No active bleeding. Closure Type: primary Specimen(s): none sent Estimated Blood Loss (mL): 10 Blood products transfused: none Procedure in detail: Preop diagnosis: Bleeding grade 3 hemorrhoids in the face of liver cirrhosis Postop diagnosis: Same Operative procedure: PPH proctopexy Surgeon: Mehnaz Macedo MD Anesthetic: Favio Yoon MD Findings: Prolapsing grade 3 hemorrhoids with an ulceration Procedure: Patient placed in lithotomy position. Unprepped, draped sterile. Ethicon PPH stapler used, 33 mm size. I began with a 1 0 Prolene to manufacture a pursestring above the dentate line proximally 2 cm. I then placed the anvil of the stapler into the pursestring pulling it down tightly prior to firing the stapler itself. This was performed through the anal retractor supplied by the kit. I then removed the anal retractors as well as stapler and on the back table reviewed the gross pathology from the staple device. Digitally I can feel circumferential stapling without any ongoing bleeding. I did go ahead and cauterized the ulcerated mucosa of the hemorrhoidal tissue that remained after stapling was complete. Dry dressing was placed. Patient was awakened, extubated, taken to recovery room in stable condition. Needle, instrument, sponge counts were correct. Blood loss: 10 mL Specimen: None Complications: none Post-operative Condition: stable Disposition: PACU
[2024-01-19] MEDS: fentaNYL 100 MCG/2 ML INJ IV ×2 (16:02→16:15)
[2024-01-19] MEDS: ONDANSETRON 4 MG/2 ML INJ IV (16:11)
[2024-01-19] MEDS: LORazepam 2 MG/ML INJ 0.5 MG IV (16:17)
--- NOTE | 2024-01-19 16:34 | SUR.PHASEI ---
Report called to
[2024-01-19] MEDS: HYDROMORPHONE 2 MG TABLET PO (16:37)
--- NOTE | 2024-01-19 16:55 | SUR.PHASEI ---
Patient transferred to the floor. Bedside report given to Simone. VS stable. Small amt of sero-sang drainage to abd pad.
[2024-01-19] MEDS: BACLOFEN 10 MG TABLET PO (17:28)
[2024-01-19] MEDS: ACETAMINOPHEN 325 MG TABLET 650 MG PO (17:28)
[2024-01-19] MEDS: MAGNESIUM CHLORIDE 64 MG TABLET 128 MG PO (18:56)
[2024-01-19] MEDS: SODIUM CHLORIDE 0.9% FLUSH 10 ML IV (20:19)
[2024-01-19] MEDS: DEXTROSE 5%-0.9% NS 1,000 ML 100 ML IV (22:27)
[2024-01-20] VITALS: BP 124/70; PULSE 74; RESP 18; TEMP 36.4; O2SAT 100
--- NOTE | 2024-01-20 00:17 | PC.NURSE ---
Patient is alert and oriented. Breath sounds CTA with RA sat of 98%. HRR. Denied nausea. BT hypoactive and reports no flatus since return from surgery. Some dried blood from rectum noted on mesh underwear. Denied any dysuria with urination and has been continent of urine. Is able to turn herself in bed. Gait not assessed as has been asleep most of shift; reported she has gotten up to [facility] [place] 1 assist. Did complain of pain in vagina, rectum and bilateral shoulders and rated severity as 3/10 but declined offer of pain medication at time of assessment. Is wearing bilateral calf SCD's. Fall risk score is moderate and bed alarm is activated.
[2024-01-20 05:01] VITALS: BP 110/72; PULSE 79; RESP 16; TEMP 37; O2SAT 98
[2024-01-20] MEDS: HYDROMORPHONE 2 MG TABLET PO ×2 (05:08→09:35)
[2024-01-20] MEDS: LEVOTHYROXINE 100 MCG TABLET PO (06:04)
[2024-01-20 07:28] LABS: Add Manual Diff / Slide Review NO; Basophils Absolute Auto 0 /uL (0-100); Basophils Percent Auto 0.1 % (0-2); Eosinophils Absolute Auto 0 /uL (0-450); Hemoglobin 8.5 g/dL (12.0-16.0); Lymphocytes Absolute Auto 500 /uL (1100-4500); Lymphocytes Percent Auto 6.9 % (25-40); Mean Corpuscular Hemoglobin 28.1 PG (26-34); Mean Corpuscular Volume 82.6 fL (80-100); Monocytes Absolute Auto 400 /uL (0-900); Monocytes Percent Auto 6.3 % (3-14); Neutrophils Absolute Auto 6100 /uL (1500-7000); Neutrophils Percent Auto 86.7 % (50-75); Platelet Count 81 X10^3/uL (150-400); Red Blood Cell Count 3.02 X10^6/uL (4.0-5.2); Red Cell Distribution Width 18.8 % (11.6-14.8)
[2024-01-20 07:39] LABS: BUN Creatinine Ratio 15.2 (6-22); Blood Urea Nitrogen 10 mg/dL (7-17); Calcium 8.1 mg/dL (8.4-10.2); Carbon Dioxide 21 mmol/L (22-32); Chloride 113 mmol/L (98-107); Estimated Glomerular Filt Rate > 60 mL/min (>60); Glucose 174 mg/dL (80-110); HEMOLYSIS < 15 (0-50); Magnesium 1.5 mg/dL (1.6-2.3); Potassium 3.8 mmol/L (3.4-5.1); Sodium 137 mmol/L (137-145)
[2024-01-20 08:00] VITALS: BP 113/68; PULSE 71; RESP 16; TEMP 36.7; O2SAT 100
[2024-01-20] MEDS: MAGNESIUM CHLORIDE 64 MG TABLET 128 MG PO (09:34)
[2024-01-20] MEDS: LIOTHYRONINE 5 MCG TABLET 10 MCG PO (09:34)
[2024-01-20] MEDS: SPIRONOLACTONE 25 MG TABLET 50 MG PO (09:34)
[2024-01-20] MEDS: POTASSIUM CHLORIDE 20 MEQ TAB PO (09:35)
[2024-01-20] MEDS: PREGABALIN 75 MG CAPSULE PO (09:35)
[2024-01-20] MEDS: FUROSEMIDE 20 MG TABLET 40 MG PO (09:35)
[2024-01-20] MEDS: MAGNESIUM OXIDE 400 MG TABLET PO (09:36)
--- NOTE | 2024-01-20 10:53 | PT.IIE ---
Current Diagnoses Acute posthemorrhagic anemia (01/17/24) Hypothyroidism, unspecified (01/17/24) Alcohol dependence, uncomplicated (01/17/24) Alcohol dependence, in remission (01/17/24) Anxiety disorder, unspecified (01/17/24) Secondary esophageal varices with bleeding (01/17/24) Hemorrhage of anus and rectum (01/17/24) Unspecified hemorrhoids (01/17/24) Alcoholic cirrhosis of liver with ascites (01/17/24) Alcohol-induced chronic pancreatitis (01/17/24) Disease of pancreas, unspecified (01/17/24) Surgery Performed Operation Date: 01/19/24 12:00 Actual Procedures p PPH Proctopexy - Belgica Macedo MD Surgical History (Last Reviewed 01/17/24 @ 17:00 by Joesph Blanco MD) H/O bilateral oophorectomy History of appendectomy History of cholecystectomy History of esophagogastroduodenoscopy (EGD) (01/2009) History of esophagogastroduodenoscopy (EGD) (05/2015) History of inguinal hernia repair Status post appendectomy Status post colonoscopy (01/2009) Status post hernia repair Status post hysteroscopy (06/17/11) Status post laparoscopic supracervical hysterectomy (08/25/16) Medical History (Last Reviewed 01/17/24 @ 17:00 by Joesph Blanco MD) Alcohol use disorder, severe, in early remission Alcoholic cirrhosis Anemia due to blood loss, acute Anemia, blood loss Anemia, macrocytic Anxiety Ascites due to alcoholic cirrhosis Back pain Bleeding internal hemorrhoids Cardiac arrhythmia Chicken pox Cirrhosis (2012) Coagulation disorder (2012) Depression Eczema (2014) EV (esophageal varices) (10/2015) GERD (gastroesophageal reflux disease) GI bleeding (2015) Hemorrhoids, internal History of alcohol abuse (12/27/15) History of blood transfusion (10/2015) History of heavy periods (2014) Hypercalcemia Hypertension Hypothyroidism Intermittent palpitations (04/2019) Measles Multilevel spondylosis Mumps Nonalcoholic fatty liver disease Ovarian cyst (2012) Painful menstrual periods (2012) Pancreatic lesion (~04/18/23) Pancreatitis Pancytopenia Portal hypertensive gastropathy (05/2015) Psoriasis (2014) PTSD (post-traumatic stress disorder) (1999) SBO (small bowel obstruction) Shortness of breath Stroke Thrombocytopenia Weakness of left upper extremity Weight gain Physical Therapy Inpatient Evaluation/Re-Eval M1 PT/OT-IP Prior Functional Status Start: 01/20/24 12:27 Freq: NEEDED Status: Active Protocol: Document 01/20/24 10:53 AB (Rec: 01/20/24 12:46 AB [id number]) Medical Review Prior Functional Status Medical History Reviewed Yes Communication able to make needs known Mobility and Gait pt stated that she was independent with all mobilities and ambulation without AD; pt able to drive Social History Household Members family Living Arrangements House Number of Floors (Floors) Two Floors Number of Stairs To Enter/Railing? 3 steps without rails to enter the house 10 steps R rail ascending +L wall to get to 2nd level bedroom Home Environment Standard Height Toilet,Walk in Shower Home Equipment Hand Held Shower,Grab Bars In Shower Additional Social History Comment pt lives with her parents and can assist her if needed M2 PT-IP Current Condition Start: 01/20/24 12:27 Freq: NEEDED Status: Active Protocol: Document 01/20/24 10:53 AB (Rec: 01/20/24 12:46 AB [id number]) Physical Therapy Current Condition Current Condition Evaluation Date 01/20/24 Treatment Diagnosis GI bleed; hemorrhoids s/p proctopexy; generalized weakness Onset Date 01/17/24 M3 PT-IP Subjective Start: 01/20/24 12:27 Freq: NEEDED Status: Active Protocol: Document 01/20/24 10:53 AB (Rec: 01/20/24 12:46 AB [id number]) Subjective Physical Therapy Visit Type Type Initial Evaluation Visit Start Time 10:53 Visit Stop Time 11:40 Number of JANITOR CUSTODIAN Visits 0 Physical Therapy Visit Comments Patient Comments agreeable to do PT Therapy Pain Assessment Pain When Pain Assessed At Rest Pain Present Pain Present Pain Reported Location Rectum Intensity 4 Scale Used Numeric (0 - 10) Pain Management Techniques Modification of Treatment,Re- positioning,Timing of Activity with Medications M4 PT-IP Mobility and Gait Start: 01/20/24 12:27 Freq: NEEDED Status: Active Protocol: Document 01/20/24 10:53 AB (Rec: 01/20/24 12:46 AB [id number]) PT-Bed Mobility Assessment Supine to Sit Supine to Sit Independent PT-Transfer Assessment Sit to and From Stand Sit to and from Stand Independent Equipment Transfer Assistive Device None,Gait Belt Orthotic/Prosthetic Devices or Brace: No Transfers Transfer Destination Chair Transfer Technique ambulated Transfer Ability Level of Assist Independent Comments Mobility Comments checked on pt and nurse in room with pt. nurse informed pt that PT will work with pt for her dizziness. informed nurse that PT will not work with pt for her dizziness. PT asked pt if she is dizzy and stated no. pt informed that she has been dizzy before but has the dizziness on and off since medication change ~ 2 weeks ago. pt stated that her PCP is working with her on that aspect since the dizziness is one of the side effects of her medications and PCP is trying to adjust them. pt supine in bed and agreeable to PT. BP ins upine: 110/70. obtained PLOF and home set up from pt. pt completed supine to sit mod I. able to sit on EOB SBA. c /o initial feeling of ooziness per pt. BP: 105/67. pt sat for ~ 2-3 more minutes and BP checked again: 117/82. pt stated that she feels better. completed sit to stand SBA. checked BP in standin/75 . pt agreed to ambulate and completed ~ 150 ft without AD. presents with slight antalgic gait but steady and without LOB. pt ambulated towards the stairs and completed up/down steps using R rail SBA. repeated x 2 sets. pt also completed up/down platform step without AD/rails SBA. pt ambulated back to her room without AD SBA. sat on chair and positioned. call light and table placed within reach. pt without further concerns. Gait Assessment Gait Gait Assistance Required: Standby Assistance Distance (Feet) 150 Able to Maintain Weight Bearing Status Yes During Gait Assistive Devices Assistive Device None,Gait Belt Orthotic/Prosthetic Devices or Brace: No Gait Deviations General Gait Pattern Antalgic Factors Limiting Gait Function Factors Limiting Gait Function Decreased Activity Tolerance Stair Climbing Assessment Evaluation Level of Assist On Stairs Standby Assistance Devices Stair Climbing Assistive Devices None,Right Railing Technique/Endurance Stair Climbing Direction Ascend and Descend Stair Climbing Technique Step to Step Number of Steps Climbed 3 Query Text: Stair Climbing Set # Repetitions (reps) 2 PT-Balance Assessment Sitting Balance and Reactions Static Sitting Balance Ability Normal Dynamic Sitting Balance Ability Normal Standing Balance and Reactions Static Standing Balance Ability Normal Dynamic Standing Balance Ability Good Device Used without AD M5 PT-IP Objective Assessments Start: 01/20/24 12:27 Freq: NEEDED Status: Active Protocol: Document 01/20/24 10:53 AB (Rec: 01/20/24 12:46 AB [id number]) Orientation Orientation/Cognition Level of Alertness Alert Orientation Name Language Function Ability No Deficits Noted Safety Awareness Understands Safety Issues Memory Description No Deficits Noted Gross Range of Motion Lower Extremity ROM Assessment Within Functional Limits Strength Lower Extremity Strength Assessment Within Functional Limits Coordination Assessment Gross Coordination Gross Coordination WNL Sensation Assessment Sensation Gross Sensation WNL Muscle Tone Muscle Tone WNL Yes M6 PT-IP Treatment Start: 01/20/24 12:27 Freq: NEEDED Status: Active Protocol: Document 01/20/24 10:53 AB (Rec: 01/20/24 12:46 AB [id number]) Physical Therapy Treatment Education Education Provided Safety M7 PT-IP Assessment and Plan Start: 01/20/24 12:27 Freq: NEEDED Status: Active Protocol: Document 01/20/24 10:53 AB (Rec: 01/20/24 12:46 AB [id number]) PT Summary Assessment and Plan Potential Rehabilitation Potential Good Status of Condition at Evaluation Stable Summary Impairments Gait,Activity Tolerance Assessment Summary pt is a 64 y/o F who presented to the ED for GI bleed and rectal hemorrhage. pt underwent proctopexy POD 1. pt requiring SBA for ambulation without AD for safety but can be independent in room. pt lives with her family and may go home when medically stable. No further PT intervention needed at this time. Goals Transfer Goal Independent Gait Goal Independent Gait Distance 200 Other Goals up/down 10 steps R rail mod I Up/down 3 steps without rails mod i Days to Meet Goals 5 Frequency of Treatment Frequency Of Treatment Discharge Treatment Plan Physical Therapy Treatment Plan Bed Mobility Training,Transfer Training,Gait Training, Therapeutic Exercise,Balance Retraining,Post Op Education, Discharge Planning,Hot or Cold Pack,Neuromuscular Re-ed, Coordination Retraining,Manual Therapy Recommendations To Nursing Amount of Assist Needed Standby Assistance Discharge Recommendations PT Discharge Recommendations Home with Assistance Transportation Needs at Discharge Private Vehicle
[2024-01-20] MEDS: LACTULOSE 20 GM/30 ML SOLUTION 10 GM PO (10:59)
[2024-01-20] MEDS: PRENATAL VIT,CALC/IRON/FOLIC 1 TABLET 1 TAB PO (10:59)
[2024-01-20] MEDS: RIFAXIMIN 200 MG TABLET 550 MG PO (10:59)
--- NOTE | 2024-01-20 11:17 | PM.PNPO.1 ---
Subjective Subjective Date Patient Seen: 01/20/24 Time Patient Seen: 11:17 Interval history: Some fullness pain when sitting. o/w minimal bleeding. Exam Vital Signs (past 8 hours): - 01/20/24 05:01 01/20/24 08:00 Temperature 98.6 F 98.1 F Pulse Rate 79 71 Respiratory Rate 16 16 Blood Pressure 110/72 113/68 Pulse Oximetry 98 100 Oxygen Flow Rate 0 0 Oxygen Delivery Method Room Air Oxygen Flow Rate 0 Narrative Exam Narrative: looks comfortable, no significant rectal bleeding Objective Labs 01/20/24 06:20 01/20/24 06:20 Labs: Laboratory Results - last 24 hr 01/17/24 01/20/24 04:15 06:20 WBC 7.0 D RBC 3.02 L Hgb 8.5 L Hct 25.0 L MCV 82.6 MCH 28.1 MCHC 34.0 RDW 18.8 H Plt Count 81 L Neut % (Auto) 86.7 H D Lymph % (Auto) 6.9 L [place] % (Auto) 6.3 Eos % (Auto) 0.0 L Baso % (Auto) 0.1 Neut # (Auto) 6100 Lymph # (Auto) 500 L [place] # (Auto) 400 Eos # (Auto) 0 Baso # (Auto) 0 Sodium 137 Potassium 3.8 Chloride 113 H Carbon Dioxide 21 L BUN 10 Creatinine 0.66 Estimated GFR > 60 BUN/Creatinine Ratio 15.2 Glucose 174 H Calcium 8.1 L Magnesium 1.5 L Crossmatch See Detail [facility] Medical History Multilevel spondylosis Back pain Alcoholic cirrhosis GERD (gastroesophageal reflux disease) Pancytopenia Thrombocytopenia Anemia due to blood loss, acute Bleeding internal hemorrhoids Pancreatic lesion (~04/18/23) Weakness of left upper extremity Stroke Anemia, macrocytic Anemia, blood loss Alcohol use disorder, severe, in early remission Hemorrhoids, internal Depression Shortness of breath Hypercalcemia Weight gain Ascites due to alcoholic cirrhosis SBO (small bowel obstruction) Pancreatitis Intermittent palpitations (04/2019) History of blood transfusion (10/2015) Coagulation disorder (2012) Hypothyroidism Hypertension History of heavy periods (2014) Ovarian cyst (2012) Painful menstrual periods (2012) Measles Mumps Chicken pox Eczema (2014) Psoriasis (2014) PTSD (post-traumatic stress disorder) (1999) Anxiety EV (esophageal varices) (10/2015) Portal hypertensive gastropathy (05/2015) Nonalcoholic fatty liver disease GI bleeding (2015) Cirrhosis (2012) Cardiac arrhythmia History of alcohol abuse (12/27/15) Surgical History H/O bilateral oophorectomy History of appendectomy History of inguinal hernia repair History of cholecystectomy History of esophagogastroduodenoscopy (EGD) (05/2015) Status post laparoscopic supracervical hysterectomy (08/25/16) Status post hysteroscopy (06/17/11) Status post hernia repair Status post appendectomy History of esophagogastroduodenoscopy (EGD) (01/2009) Status post colonoscopy (01/2009) Family History Grandfather Heart disease [place] (myocardial infarction) Grandmother Alcoholism Father No problems noted. Mother No problems noted. Grandfather Heart disease Grandmother Colon cancer Brother No problems noted. Social History household members: family Smoking Status: Never smoker alcohol intake: former Assessment & Plan Post-op Postoperative Procedures: Procedures Operation Date: 01/19/24 12:00 Actual Procedure Side Surgeon p PPH Proctopexy Belgica Macedo MD Postoperative status: doing well Postoperative plan: discharge Time Spent With Patient Time with patient: less than 15 minutes
[2024-01-20] MEDS: OXYCODONE IR 5 MG TABLET PO (12:06)
--- NOTE | 2024-01-20 12:50 | CM.DPC ---
DCP Cont. Reviewed EMR and team rounds for status updates. Pt has been medically cleared for home d/c, her family will transport her home. No further DCP needs identified at this time.
--- NOTE | 2024-01-20 13:03 | P.DS_ITS ---
History of Present Illness History of Present Illness Date Patient Seen: 01/20/24 Time Patient Seen: 08:40 Chief complaint: rectal bleeding Narrative: Per admitting provider, 64-year-old woman in history of cirrhosis due to alcohol abuse history, with a history of esophageal varices and internal hemorrhoids, presents reporting persistent and worsening bright red blood per rectum over the previous 24 hours. She has had multiple admissions for GI leeding due to varices as well as hemorrhoids. Discharge Providers Provider Date of admission: 01/17/24 12:42 Discharge Date: 01/20/24 Primary care physician: HARJEET John Consults: 01/17/24 11:20 Consult to General Surgery Stat Comment: Consulting Provider: Leo Hart Reason for consultation: Hemorrhoidal bleed Has provider been notified: Yes 01/17/24 15:15 Consult to Dietitian, Adult Routine Comment: Reason For Exam: weight loss 01/20/24 09:42 Consult to Occupational Therapy Evaluate & Treat Comment: Physician Instructions: Evaluate and treat Consult to Physical Therapy Evaluate & Treat Comment: Physician Instructions: Evaluate and Treat Discharge provider: Bharath Fonseca DO Summary Hospital Course Discharge Diagnosis: 1. Acute blood loss anemia secondary to hemorrhoidal bleeding 2. Acute on chronic thrombocytopenia 3. Liver induced cirrhosis and portal hypertension with known esophageal varices, present on admission and active. 4. Recent admission for baclofen withdrawal, present on admission and active. 5. Polypharmacy, present on admission and active. 6. Chronic back pain, present on admission and active. 7. Chronic pancreatitis, stable. 8. Anxiety and depression, stable. 9. Hypothyroidism, present on admission and stable. Hospital Course: This is a 64 year old female admitted with acute blood loss anemia due to hematochezia from known hemorrhoids. She required 2U PRBC transfusion during her stay due to continued blood loss. She had a hemorrhoidectomy with general surgery. She was also given Transexamic acid with improvement / cessation in bleeding. After surgery she had minimal bleeding with improvement in h/h and controlled pain. She was discharged home. If bleeding should recur in the future, discussed with surgery and recommended to consider addition of transexamic acid orally. No other changes to her home medications were recommended at discharge. Time Spent with Patient Time spent: Less than 30 minutes Exam Vital Signs (past 8 hours): - 01/20/24 08:00 Temperature 98.1 F Pulse Rate 71 Respiratory Rate 16 Blood Pressure 113/68 Pulse Oximetry 100 Oxygen Flow Rate 0 Oxygen Delivery Method Room Air Oxygen Flow Rate 0 Narrative Exam Narrative: GENERAL: This is a well-nourished, well-developed patient, in no apparent distress. CARDIOVASCULAR: Regular rate and rhythm RESPIRATORY: No distress NEUROLOGIC: Alert, oriented, speech fluent, full upper and lower motor strength, no focal deficits evident. Objective Labs 01/20/24 06:20 01/20/24 06:20 Labs: Laboratory Results - last 24 hr 01/20/24 06:20 WBC 7.0 D RBC 3.02 L Hgb 8.5 L Hct 25.0 L MCV 82.6 MCH 28.1 MCHC 34.0 RDW 18.8 H Plt Count 81 L Neut % (Auto) 86.7 H D Lymph % (Auto) 6.9 L [place] % (Auto) 6.3 Eos % (Auto) 0.0 L Baso % (Auto) 0.1 Neut # (Auto) 6100 Lymph # (Auto) 500 L [place] # (Auto) 400 Eos # (Auto) 0 Baso # (Auto) 0 Sodium 137 Potassium 3.8 Chloride 113 H Carbon Dioxide 21 L BUN 10 Creatinine 0.66 Estimated GFR > 60 BUN/Creatinine Ratio 15.2 Glucose 174 H Calcium 8.1 L Magnesium 1.5 L PFSH Medical History Multilevel spondylosis Back pain Alcoholic cirrhosis GERD (gastroesophageal reflux disease) Pancytopenia Thrombocytopenia Anemia due to blood loss, acute Bleeding internal hemorrhoids Pancreatic lesion (~04/18/23) Weakness of left upper extremity Stroke Anemia, macrocytic Anemia, blood loss Alcohol use disorder, severe, in early remission Hemorrhoids, internal Depression Shortness of breath Hypercalcemia Weight gain Ascites due to alcoholic cirrhosis SBO (small bowel obstruction) Pancreatitis Intermittent palpitations (04/2019) History of blood transfusion (10/2015) Coagulation disorder (2012) Hypothyroidism Hypertension History of heavy periods (2014) Ovarian cyst (2012) Painful menstrual periods (2012) Measles Mumps Chicken pox Eczema (2014) Psoriasis (2014) PTSD (post-traumatic stress disorder) (1999) Anxiety EV (esophageal varices) (10/2015) Portal hypertensive gastropathy (05/2015) Nonalcoholic fatty liver disease GI bleeding (2016) Cirrhosis (2013) Cardiac arrhythmia History of alcohol abuse (12/27/15) Surgical History H/O bilateral oophorectomy History of appendectomy History of inguinal hernia repair History of cholecystectomy History of esophagogastroduodenoscopy (EGD) (05/2015) Status post laparoscopic supracervical hysterectomy (08/25/16) Status post hysteroscopy (06/17/11) Status post hernia repair Status post appendectomy History of esophagogastroduodenoscopy (EGD) (01/2009) Status post colonoscopy (01/2009) Family History Grandfather Heart disease [place] (myocardial infarction) Grandmother Alcoholism Father No problems noted. Mother No problems noted. Grandfather Heart disease Grandmother Colon cancer Brother No problems noted. Social History household members: family Smoking Status: Never smoker alcohol intake: former Discharge Plan Discharge Plan Patient Disposition: Home Provider Discharge Comment: You were admitted to the hospital with anemia, due to hemorrhoid which required surgery. Pain medications sent to your pharmacy, follow up scheduled in a couple of weeks in clinic. No other medication changes necessary at this time. Discharge orders & Medications Prescriptions: New oxycodone 5 mg Tablet 5 mg PO Q3HR PRN (Reason: Pain, Moderate (4-6)) 7 Days Qty: 15 0RF Continued ,calc.47-mizz-kyrrhv 1 27-1 mg tablet 1 tab PO DAILY Qty: 90 3RF Rx Instructions: Take 1 tab daily for anemia spironolactone 50 mg tablet 50 mg PO DAILY Qty: 90 3RF furosemide 20 mg tablet 40 mg PO QAM Qty: 60 3RF Rx Instructions: Take 1 extra tab of 20mg (total 40mg) daily liothyronine 5 mcg tablet 10 mcg PO DAILY Qty: 180 3RF nadolol 20 mg tablet 30 mg PO DAILY Qty: 135 3RF Rx Instructions: takes at about 1500 Qday levothyroxine 100 mcg capsule 100 mcg PO DAILY Qty: 90 3RF lactulose 10 gram/15 mL solution 15 ml PO BID PRN (Reason: per patient discretion) Patient Comments: Take 30mL daily if pt does not have 3 BMs per day Rx Instructions: patient holds medication with diarrhea Xifaxan 550 mg tablet 550 mg PO BID potassium chloride [Klor-Con M20] 20 mEq tablet,ER particles/crystals 20 meq PO BID Qty: 60 3RF magnesium oxide 500 mg magnesium tablet 500 mg PO DAILY Qty: 30 3RF pregabalin 75 mg capsule 75 mg PO TID Qty: 90 3RF hydromorphone 2 mg tablet 2 mg PO Q4-6H PRN (Reason: pain) Qty: 40 0RF lorazepam 1 mg tablet 1 mg PO BEDTIME PRN (Reason: Anxiety) baclofen 10 mg tablet 10 mg PO QID PRN (Reason: MUSCLE SPASM) Follow up/Referrals: Divina Lopes ARNP [Primary Care Provider] - Belgica Macedo MD [Physician] - 02/04/24 11:00 am (Appt:02/03 @ 11:00 check in for [address] Macedo ) Diet/Activity/Treatments Diet: Diet as Tolerated and Regular Activity: As tolerated, no restrictions Visit Report/Discharge Packet Instructions: Good Food Sources of Iron, DI for Esophageal Varices, DI for Blood Transfusion, DI for Hemorrhoidectomy, DI for Cirrhosis, DI for Constipation, How to Prevent Falls, DI for Prescription Opioid Use Stand Alone Forms: Patient Portal/API, Stroke Signs & Symptoms, Surgery Discharge Discharge Data Primary Care Provider: Divina Lopes
--- NOTE | 2024-01-20 13:24 | OT.IPNOTE ---
Hospitalist okay to discharge OT orders, pt being discharged.
--- NOTE | 2024-01-20 15:00 | PC.NURSE ---
Discharge: Pt feels ready to d/c to home. IV's d/c. Tolerates diet w/out problems. Pt did a trial of oxycodone and that was more effective for her than the dilaudid. MD aware. Rx has been esent. Dr. Macedo in and gave d/c instructions and how to care for wound. Dr. Fonseca here and gave instructions. Physical therapist here and saw pt. She is safe to go home. Reviewed d/c packet. Questions answered. Her mother came and picked her up at the front of the hospital. Pt had no concerns when she left.
== END 2024-01-20 15:00 | disposition home or self-care (01) | DRG 226 ==
LOC: ED 12:38 → AC 12:43
PROVIDERS: Emergency Medicine; Internal Medicine; Surgery; Admitting Provider Internal Medicine; Emergency Provider Emergency Medicine; Family Provider Nurse Practitioner; PCP Nurse Practitioner; Referring Provider Emergency Medicine; Visit Provider Internal Medicine
PROC: 0DQP7ZZ Repair Rectum, Via Natural or Artificial Opening (ICD-10-PCS; principal; 2024-01-19 12:00)
DX: K64.2 Third degree hemorrhoids (principal); I85.01 Esophageal varices with bleeding; D62 Acute posthemorrhagic anemia; K70.31 Alcoholic cirrhosis of liver with ascites; K86.0 Alcohol-induced chronic pancreatitis; F10.91 Alcohol use, unspecified, in remission; E03.9 Hypothyroidism, unspecified; F41.9 Anxiety disorder, unspecified; K86.9 Disease of pancreas, unspecified; D69.6 Thrombocytopenia, unspecified; K76.6 Portal hypertension; F32.A Depression, unspecified; M54.9 Dorsalgia, unspecified; G89.29 Other chronic pain; I10 Essential (primary) hypertension; Y90.0 Blood alcohol level of less than 20 mg/100 ml
CPT/HCPCS: 36415; 36430; 74174; 80048; 80053; 80320; 83735; 85014; 85018; 85025; 85610; 85730; 86850; 86900; 86901; 93005; 96374; 96375; 96376; 97161; 97530; 99285; 99291; P9016; J1100; J2060; J2405; J2470; J2704; J3010; P9035; Q9967

== ENCOUNTER 2024-02-09 05:00 | Observation (INO) | payer OTHER, MEDICAID, SELFPAY ==
[2024-01-17 15:03] VITALS: BMI 22.3
[2024-02-09] VITALS (69 sets, daily range): BP systolic 78–126; BP diastolic 39–79; PULSE 85–132; RESP 12–36; TEMP 36.5–36.9; O2SAT 94–100; BMI 21.4
--- NOTE | 2024-02-09 05:09 | DI.CT.S_ITS ---
PROCEDURE: CT ANGIO ABD/PEL GI BLEED INDICATIONS: LARGE AMT BRIGHT RED BLOOD PER RECTUM TECHNIQUE: After the administration of intravenous contrast, 2.5 mm thick sections acquired from the diaphragm to the symphysis. 10 mm maximum-intensity projection (MIP) reformats were then acquired. For radiation dose reduction, the following was used: automated exposure control. COMPARISON: [facility], CT, CT ANGIO ABD/PEL GI BLEED, 01/17/2024, 10:17. MR 09/18/2022. FINDINGS: Image Quality: Diagnostic. Abdominal aorta: No aortic aneurysm or evidence of acute aortic syndrome. Mesenteric arteries: Patent without hemodynamically significant stenosis. Renal arteries: Patent without hemodynamically significant stenosis. OTHER: Lower Chest: No significant findings. Liver: Cirrhosis. Contrast timing is suboptimal for detection of hepatocellular carcinoma (early. No large mass identified. Patent portal vein. Gallbladder: Absent. Biliary ducts: No biliary dilation. Pancreas: Atrophic. Significant cystic change in the pancreatic head, with dilated side branches. Possible obstructing 1.8 centimeter stone in the pancreatic duct. Spleen: Size is enlarged. Adrenal Glands: No adrenal nodules. Kidneys and Ureters: No hydronephrosis. No solid mass. No complex renal cystic lesion which requires follow up. Stomach and Bowel: Wall thickening of the cecum. Wall thickening of the rectum. Prior APR. Peritoneum: Small volume ascites. Ventral Wall: No hernia. Abdominal Nodes: No retroperitoneal or mesenteric adenopathy by size criteria. Vessels: Aorta and inferior vena cava are normal in size. Small focus of enhancement in the lower rectum (series 5, image 222). PELVIS: Pelvic Organs: Unremarkable. Bladder: Unremarkable. Pelvic Nodes: No enlarged lymph nodes. Miscellaneous: No inguinal hernias are seen. Bones: No aggressive osseous abnormality. IMPRESSION: Small focus of enhancement in the lower rectum, could represent internal hemorrhoids. Proctitis. Cecal wall thickening, possibly portal colopathy versus colitis. Cirrhosis with portal hypertension. Cystic change in the pancreatic head and distal dilated side branches. Possible obstructing stone in the distal pancreatic duct. Findings are not significantly changed since 09/18/2022. Agree with preliminary report. Dictated by: Lance Avila M.D. on 02/09/2024 at 8:20 Approved by: Lance Avila M.D. on 02/09/2024 at 8:47
--- NOTE | 2024-02-09 05:09 | EKG_ITS ---
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
--- NOTE | 2024-02-09 05:11 | ED_ITS ---
HPI - GI Bleed <Ruth Marroquin MD - Last Filed: 02/09/24 20:17> General Chief complaint: Abdominal Pain Stated complaint: Rectal Bleed Time Seen by Provider: 02/09/24 05:03 History of Present Illness HPI Narrative: 64-year-old female with history of alcohol use disorder, cirrhosis, hypothyroidism, history of GI bleed secondary to internal hemorrhoids presents by EMS from home for bright red blood per rectum. Patient underwent banding of internal hemorrhoids on 01/19/2024 for GI bleed requiring transfusion of blood products. Patient discharged home on 01/20/2024 and has not had any bleeding since then. Patient states that last night she began to feel lower abdominal pain that caused her to have a drink of alcohol. She went to the restroom and a ?large? amount of blood came out of her rectum. EMS reports that son at bedside reported a pt of blood, patient thinks that it may have been even more than that. Related Data Home Medications Medication Instructions Recorded Confirmed lactulose 10 gram/15 mL oral 15 ml PO BID PRN per patient 10/16/22 02/09/24 solution discretion rifaximin 550 mg tablet (Xifaxan) 550 mg PO BID 06/16/23 02/09/24 Previous Rx's Medication Instructions Recorded spironolactone 50 mg tablet 50 mg PO DAILY #90 tabs 06/30/23 furosemide 20 mg tablet 40 mg (2 x 20 mg) PO QAM #60 tabs 10/07/23 liothyronine 5 mcg tablet 10 mcg (2 x 5 mcg) PO DAILY #180 10/14/23 tabs nadolol 20 mg tablet 30 mg (1.5 x 20 mg) PO DAILY #135 10/14/23 tabs magnesium oxide 500 mg PO DAILY #30 tabs 10/22/23 pregabalin 75 mg capsule 75 mg PO TID #90 caps 10/22/23 levothyroxine 100 mcg capsule 100 mcg PO DAILY #90 caps 01/11/24 lorazepam 0.5 mg tablet 0.5 mg PO BEDTIME PRN sleep #45 01/28/24 tabs potassium chloride 20 mEq 20 meq PO BID #180 tabs 02/08/24 tablet,extended release(part/cryst) (Klor-Con M) vit,calcium no.40-iron 1 tab PO DAILY #90 tabs 02/08/24 fum 27 mg iron-folate no.1 1 mg tablet Allergies Allergy/AdvReac Type Severity Reaction Status Date / Time doxepin Allergy Intermediate ITCHING Verified 02/05/24 09:35 Patient History <Ruth Marroquin MD - Last Filed: 02/09/24 20:17> Medical History Multilevel spondylosis Back pain Alcoholic cirrhosis GERD (gastroesophageal reflux disease) Pancytopenia Thrombocytopenia Anemia due to blood loss, acute Bleeding internal hemorrhoids Pancreatic lesion (~04/18/23) Weakness of left upper extremity Stroke Anemia, macrocytic Anemia, blood loss Alcohol use disorder, severe, in early remission Hemorrhoids, internal Depression Shortness of breath Hypercalcemia Weight gain Ascites due to alcoholic cirrhosis SBO (small bowel obstruction) Pancreatitis Intermittent palpitations (04/2019) History of blood transfusion (10/2015) Coagulation disorder (2012) Hypothyroidism Hypertension History of heavy periods (2014) Ovarian cyst (2012) Painful menstrual periods (2012) Measles Mumps Chicken pox Eczema (2014) Psoriasis (2014) PTSD (post-traumatic stress disorder) (1999) Anxiety EV (esophageal varices) (10/2015) Portal hypertensive gastropathy (05/2015) Nonalcoholic fatty liver disease GI bleeding (2015) Cirrhosis (2012) Cardiac arrhythmia History of alcohol abuse (12/27/15) Surgical History H/O bilateral oophorectomy History of appendectomy History of inguinal hernia repair History of cholecystectomy History of esophagogastroduodenoscopy (EGD) (05/2015) Status post laparoscopic supracervical hysterectomy (08/25/16) Status post hysteroscopy (06/17/11) Status post hernia repair Status post appendectomy History of esophagogastroduodenoscopy (EGD) (01/2009) Status post colonoscopy (01/2009) Family History Grandfather Heart disease [place] (myocardial infarction) Grandmother Alcoholism Father No problems noted. Mother No problems noted. Grandfather Heart disease Grandmother Colon cancer Brother No problems noted. Social History household members: family Smoking Status: Never smoker alcohol intake: former Smoking Status: Never smoker alcohol intake frequency: 3 or more drinks per day Alcohol type: wine Substance Use Type: does not use Exam <Ruth Marroquin MD - Last Filed: 02/09/24 20:17> Initial Vital Signs Initial Vital Signs: Vital Signs Pulse Rate 104 H 02/09/24 05:03 Respiratory Rate 16 02/09/24 05:03 Blood Pressure 107/79 02/09/24 05:03 Pulse Oximetry 100 02/09/24 05:03 Oxygen Delivery Method Room Air 02/09/24 05:03 Const: Awake, alert, no acute distress Cardiac: regular rate, regular rhythm RESP: unlabored, clear bilaterally, no wheezing GI: Soft, nontender, nondistended Rectal: red blood on clothes, irritated hemorrhoidal tissue at rectum, no active bleeding Skin: Warm, Dry, intact, no rashes Neuro: AO x3, CN II-XII grossly intact, moves all extremities <Ruth Rodriguez DO - Last Filed: 02/09/24 11:39> Initial Vital Signs Initial Vital Signs: Vital Signs Pulse Rate 104 H 02/09/24 05:03 Respiratory Rate 16 02/09/24 05:03 Blood Pressure 107/79 02/09/24 05:03 Pulse Oximetry 100 02/09/24 05:03 Oxygen Delivery Method Room Air 02/09/24 05:03 Course <Ruth Marroquin MD - Last Filed: 02/09/24 20:17> Orders Ordered: Furosemide (Furosemide 20 Mg Tablet) 40 mg PO DAILY AGNIESZKA Lactated Ringer's (Lactated Ringers) 1,000 mls @ 125 mls/hr IV CONT AGNIESZKA Last Infusion: 02/09/24 08:19 Dose: 0 mls/hr Documented By: Admin: 02/09/24 07:49 Dose: 125 mls/hr Documented By: Dextrose/Sodium Chloride (Dextrose 5%-0.9% Ns) 1,000 mls @ 100 mls/hr IV CONT AGNIESZKA Last Admin: 02/09/24 18:33 Dose: 100 mls/hr Documented By: Infusion: 02/09/24 18:33 Dose: Infused Documented By: Admin: 02/09/24 09:17 Dose: 100 mls/hr Documented By: YAHIR Lactulose (Lactulose 20 Gm/30 Ml Solution) 10 gm PO BID PRN PRN Reason: per patient discretion Levothyroxine Sodium (Levothyroxine 100 Mcg Tablet) 100 mcg PO 0600 PENDING SALE TO [facility] Liothyronine Sodium (Liothyronine 5 Mcg Tablet) 10 mcg PO DAILY@0600 PENDING SALE TO [facility] Lorazepam (Lorazepam 0.5 Mg Tablet) 0.5 mg PO BEDTIME PRN PRN Reason: sleep Last Admin: 02/09/24 20:11 Dose: 0.5 mg Documented By: NOEMÍ Magnesium Oxide (Magnesium Oxide 400 Mg Tablet) 400 mg PO DAILY PENDING SALE TO [facility] Morphine Sulfate (Morphine 2 Mg/Ml Inj) 2 mg IV Q2HR PRN PRN Reason: Pain, Moderate (4-6) Last Admin: 02/09/24 20:10 Dose: 2 mg Documented By: Admin: 02/09/24 10:02 Dose: 2 mg Documented By: YAHIR Naloxone HCl (Naloxone 0.4 Mg/Ml Vial) 0.2 mg IV Q2MIN PRN PRN Reason: Opiate Reversal Ondansetron HCl (Ondansetron 4 Mg/2 Ml Inj) 4 mg IV Q8HR PRN PRN Reason: Nausea And Vomiting Last Admin: 02/09/24 18:33 Dose: 4 mg Documented By: Admin: 02/09/24 09:21 Dose: 4 mg Documented By: YAHIR Oxycodone HCl (Oxycodone Ir 5 Mg Tablet) 5 mg PO Q3H PRN PRN Reason: Pain, Moderate (4-6) Potassium Chloride (Potassium Chloride 20 Meq Tab) 20 meq PO BID PENDING SALE TO [facility] Pregabalin (Pregabalin 75 Mg Capsule) 75 mg PO TID PENDING SALE TO [facility] Last Admin: 02/09/24 20:11 Dose: 75 mg Documented By: NOEMÍ Vit/Calcium/Iron/Folic Ac ( Vit,Calc/Iron/Folic 1 Tablet) 1 tab PO DAILY PENDING SALE TO [facility] Propranolol HCl (Propranolol 10 Mg Tablet) 15 mg PO BID PENDING SALE TO [facility] Rifaximin (Rifaximin 200 Mg Tablet) 400 mg PO TID PENDING SALE TO [facility] Sodium Chloride (Sodium Chloride 0.9% Flush) 10 ml IV PRN PRN PRN Reason: Flush Sodium Chloride (Sodium Chloride 0.9% Flush) 10 ml IV BID PENDING SALE TO [facility] Last Admin: 02/09/24 20:10 Dose: 10 ml Documented By: NOMEÍ Spironolactone (Spironolactone 25 Mg Tablet) 50 mg PO DAILY AGNIESZKA Discontinued Medications Fentanyl (Fentanyl 100 Mcg/2 Ml Inj) 25 mcg IV NOW ONE Stop: 02/09/24 07:43 Last Admin: 02/09/24 07:49 Dose: 25 mcg Documented By: KELSI Folic Acid (Folic Acid 1 Mg Tablet) 1 mg PO NOW ONE Stop: 02/09/24 05:10 Last Admin: 02/09/24 05:56 Dose: 1 mg Documented By: ELVIN Thiamine HCl 200 mg/ Sodium (Chloride) 102 mls @ 408 mls/hr IV NOW ONE Stop: 02/09/24 05:10 Last Infusion: 02/09/24 06:25 Dose: Infused Documented By: Admin: 02/09/24 05:52 Dose: 408 mls/hr Documented By: ELVIN Tranexamic Acid 1,000 mg/ (Sodium Chloride) 100 mls @ 200 mls/hr IV NOW ONE Stop: 02/09/24 07:23 Last Infusion: 02/09/24 07:55 Dose: Infused Documented By: Admin: 02/09/24 07:06 Dose: 200 mls/hr Documented By: ELVIN Sodium Chloride (Normal Saline 0.9%) 1,000 mls @ 500 mls/hr IV BOLUS ONE Stop: 02/09/24 09:25 Last Admin: 02/09/24 08:22 Dose: Not Given Documented By: ANUPAMA Lactated Ringer's (Lactated Ringers) 1,000 mls @ 1,000 mls/hr IV BOLUS ONE Stop: 02/09/24 09:12 Last Infusion: 02/09/24 09:05 Dose: 0 mls/hr Documented By: Admin: 02/09/24 08:20 Dose: 1,000 mls/hr Documented By: ANUPAMA Vital Signs Vital signs: Vital Signs - 8 hr 02/09/24 05:03 02/09/24 05:07 02/09/24 05:07 Pulse Rate 104 H 98 H Respiratory Rate 16 Blood Pressure 107/79 107/79 Pulse Oximetry 100 98 Oxygen Delivery Method Room Air 02/09/24 05:50 02/09/24 05:51 02/09/24 05:51 Pulse Rate 99 H 93 H Respiratory Rate 17 12 Blood Pressure 109/69 Pulse Oximetry 98 100 Oxygen Delivery Method 02/09/24 06:00 02/09/24 06:00 02/09/24 06:30 Pulse Rate 96 H Respiratory Rate 22 Blood Pressure 100/57 L 95/50 L Pulse Oximetry 98 Oxygen Delivery Method 02/09/24 06:30 02/09/24 06:35 02/09/24 06:44 Pulse Rate 99 H Respiratory Rate 24 Blood Pressure 92/55 L Pulse Oximetry 97 100 Oxygen Delivery Method 02/09/24 06:47 02/09/24 06:47 02/09/24 06:49 Pulse Rate 101 H 100 H Respiratory Rate 24 18 Blood Pressure 78/53 L Pulse Oximetry 98 98 Oxygen Delivery Method 02/09/24 06:49 02/09/24 06:52 02/09/24 06:52 Pulse Rate 101 H Respiratory Rate 17 Blood Pressure 80/39 L 95/64 Pulse Oximetry 98 Oxygen Delivery Method 02/09/24 06:56 02/09/24 06:56 02/09/24 07:00 Pulse Rate 99 H 90 Respiratory Rate 26 H 22 Blood Pressure 98/66 Pulse Oximetry 98 99 Oxygen Delivery Method 02/09/24 07:05 02/09/24 07:05 02/09/24 07:08 Pulse Rate 101 H Respiratory Rate 34 H Blood Pressure 103/60 90/53 L Pulse Oximetry 99 Oxygen Delivery Method 02/09/24 07:08 02/09/24 07:12 02/09/24 07:12 Pulse Rate 101 H 101 H Respiratory Rate 36 H 27 H Blood Pressure 86/50 L Pulse Oximetry 99 99 Oxygen Delivery Method 02/09/24 07:16 02/09/24 07:16 02/09/24 07:20 Pulse Rate 99 H 103 H Respiratory Rate 30 H Blood Pressure 96/53 L Pulse Oximetry 99 100 Oxygen Delivery Method 02/09/24 07:20 Pulse Rate Respiratory Rate Blood Pressure 99/51 L Pulse Oximetry Oxygen Delivery Method <Ruth Rodriguez, DO - Last Filed: 02/09/24 11:39> Orders Ordered: Furosemide (Furosemide 20 Mg Tablet) 40 mg PO DAILY AGNIESZKA Lactated Ringer's (Lactated Ringers) 1,000 mls @ 125 mls/hr IV CONT AGNIESZKA Last Infusion: 02/09/24 08:19 Dose: 0 mls/hr Documented By: Admin: 02/09/24 07:49 Dose: 125 mls/hr Documented By: Dextrose/Sodium Chloride (Dextrose 5%-0.9% Ns) 1,000 mls @ 100 mls/hr IV CONT AGNIESZKA Last Admin: 02/09/24 18:33 Dose: 100 mls/hr Documented By: Infusion: 02/09/24 18:33 Dose: Infused Documented By: Admin: 02/09/24 09:17 Dose: 100 mls/hr Documented By: YAHIR Lactulose (Lactulose 20 Gm/30 Ml Solution) 10 gm PO BID PRN PRN Reason: per patient discretion Levothyroxine Sodium (Levothyroxine 100 Mcg Tablet) 100 mcg PO 0600 AGNIESZKA Liothyronine Sodium (Liothyronine 5 Mcg Tablet) 10 mcg PO DAILY@0600 AGNIESZKA Lorazepam (Lorazepam 0.5 Mg Tablet) 0.5 mg PO BEDTIME PRN PRN Reason: sleep Last Admin: 02/09/24 20:11 Dose: 0.5 mg Documented By: NOEMÍ Magnesium Oxide (Magnesium Oxide 400 Mg Tablet) 400 mg PO DAILY PENDING SALE TO [facility] Morphine Sulfate (Morphine 2 Mg/Ml Inj) 2 mg IV Q2HR PRN PRN Reason: Pain, Moderate (4-6) Last Admin: 02/09/24 20:10 Dose: 2 mg Documented By: Admin: 02/09/24 10:02 Dose: 2 mg Documented By: YAHIR Naloxone HCl (Naloxone 0.4 Mg/Ml Vial) 0.2 mg IV Q2MIN PRN PRN Reason: Opiate Reversal Ondansetron HCl (Ondansetron 4 Mg/2 Ml Inj) 4 mg IV Q8HR PRN PRN Reason: Nausea And Vomiting Last Admin: 02/09/24 18:33 Dose: 4 mg Documented By: Admin: 02/09/24 09:21 Dose: 4 mg Documented By: YAHIR Oxycodone HCl (Oxycodone Ir 5 Mg Tablet) 5 mg PO Q3H PRN PRN Reason: Pain, Moderate (4-6) Potassium Chloride (Potassium Chloride 20 Meq Tab) 20 meq PO BID PENDING SALE TO [facility] Pregabalin (Pregabalin 75 Mg Capsule) 75 mg PO TID PENDING SALE TO [facility] Last Admin: 02/09/24 20:11 Dose: 75 mg Documented By: NOEMÍ Vit/Calcium/Iron/Folic Ac ( Vit,Calc/Iron/Folic 1 Tablet) 1 tab PO DAILY PENDING SALE TO [facility] Propranolol HCl (Propranolol 10 Mg Tablet) 15 mg PO BID AGNIESZKA Rifaximin (Rifaximin 200 Mg Tablet) 400 mg PO TID AGNIESZKA Sodium Chloride (Sodium Chloride 0.9% Flush) 10 ml IV PRN PRN PRN Reason: Flush Sodium Chloride (Sodium Chloride 0.9% Flush) 10 ml IV BID AGNIESZKA Last Admin: 02/09/24 20:10 Dose: 10 ml Documented By: NOEMÍ Spironolactone (Spironolactone 25 Mg Tablet) 50 mg PO DAILY PENDING SALE TO [facility] Discontinued Medications Fentanyl (Fentanyl 100 Mcg/2 Ml Inj) 25 mcg IV NOW ONE Stop: 02/09/24 07:43 Last Admin: 02/09/24 07:49 Dose: 25 mcg Documented By: KELSI Folic Acid (Folic Acid 1 Mg Tablet) 1 mg PO NOW ONE Stop: 02/09/24 05:10 Last Admin: 02/09/24 05:56 Dose: 1 mg Documented By: ELVIN Thiamine HCl 200 mg/ Sodium (Chloride) 102 mls @ 408 mls/hr IV NOW ONE Stop: 02/09/24 05:10 Last Infusion: 02/09/24 06:25 Dose: Infused Documented By: Admin: 02/09/24 05:52 Dose: 408 mls/hr Documented By: ELVIN Tranexamic Acid 1,000 mg/ (Sodium Chloride) 100 mls @ 200 mls/hr IV NOW ONE Stop: 02/09/24 07:23 Last Infusion: 02/09/24 07:55 Dose: Infused Documented By: Admin: 02/09/24 07:06 Dose: 200 mls/hr Documented By: ELVIN Sodium Chloride (Normal Saline 0.9%) 1,000 mls @ 500 mls/hr IV BOLUS ONE Stop: 02/09/24 09:25 Last Admin: 02/09/24 08:22 Dose: Not Given Documented By: ANUPAMA Lactated Ringer's (Lactated Ringers) 1,000 mls @ 1,000 mls/hr IV BOLUS ONE Stop: 02/09/24 09:12 Last Infusion: 02/09/24 09:05 Dose: 0 mls/hr Documented By: Admin: 02/09/24 08:20 Dose: 1,000 mls/hr Documented By: ANUPAMA Vital Signs Vital signs: Vital Signs - 8 hr 02/09/24 05:03 02/09/24 05:07 02/09/24 05:07 Pulse Rate 104 H 98 H Respiratory Rate 16 Blood Pressure 107/79 107/79 Pulse Oximetry 100 98 Oxygen Delivery Method Room Air 02/09/24 05:50 02/09/24 05:51 02/09/24 05:51 Pulse Rate 99 H 93 H Respiratory Rate 17 12 Blood Pressure 109/69 Pulse Oximetry 98 100 Oxygen Delivery Method 02/09/24 06:00 02/09/24 06:00 02/09/24 06:30 Pulse Rate 96 H Respiratory Rate 22 Blood Pressure 100/57 L 95/50 L Pulse Oximetry 98 Oxygen Delivery Method 02/09/24 06:30 02/09/24 06:35 02/09/24 06:44 Pulse Rate 99 H Respiratory Rate 24 Blood Pressure 92/55 L Pulse Oximetry 97 100 Oxygen Delivery Method 02/09/24 06:47 02/09/24 06:47 02/09/24 06:49 Pulse Rate 101 H 100 H Respiratory Rate 24 18 Blood Pressure 78/53 L Pulse Oximetry 98 98 Oxygen Delivery Method 02/09/24 06:49 02/09/24 06:52 02/09/24 06:52 Pulse Rate 101 H Respiratory Rate 17 Blood Pressure 80/39 L 95/64 Pulse Oximetry 98 Oxygen Delivery Method 02/09/24 06:56 02/09/24 06:56 02/09/24 07:00 Pulse Rate 99 H 90 Respiratory Rate 26 H 22 Blood Pressure 98/66 Pulse Oximetry 98 99 Oxygen Delivery Method 02/09/24 07:05 02/09/24 07:05 02/09/24 07:08 Pulse Rate 101 H Respiratory Rate 34 H Blood Pressure 103/60 90/53 L Pulse Oximetry 99 Oxygen Delivery Method 02/09/24 07:08 02/09/24 07:12 02/09/24 07:12 Pulse Rate 101 H 101 H Respiratory Rate 36 H 27 H Blood Pressure 86/50 L Pulse Oximetry 99 99 Oxygen Delivery Method 02/09/24 07:16 02/09/24 07:16 02/09/24 07:20 Pulse Rate 99 H 103 H Respiratory Rate 30 H Blood Pressure 96/53 L Pulse Oximetry 99 100 Oxygen Delivery Method 02/09/24 07:20 Pulse Rate Respiratory Rate Blood Pressure 99/51 L Pulse Oximetry Oxygen Delivery Method MDM - GI Bleed <Ruth Marroquin MD - Last Filed: 02/09/24 20:17> Lab Data 02/09/24 18:43 02/09/24 04:55 Labs: Lab Results 02/09/24 02/09/24 02/09/24 Range/Units 04:55 05:48 07:03 WBC 3.7 L (4.5-11.0) X10^3/uL RBC 3.40 L (4.0-5.2) X10^6/uL Hgb 9.1 L (12.0-16.0) g/dL Hct 27.7 L (36-46) % MCV 81.5 (80-100) fL MCH 26.7 (26-34) PG MCHC 32.7 (30-36) % RDW 18.5 H (11.6-14.8) % Plt Count 104 L (150-400) X10^3/uL Neut % (Auto) 50.5 (50-75) % Lymph % (Auto) 37.0 (25-40) % [place] % (Auto) 9.4 (3-14) % Eos % (Auto) 2.1 (2-4) % Baso % (Auto) 1.0 (0-2) % Neut # (Auto) 1800 (8894-2157) /uL Lymph # (Auto) 1400 (5341-8243) /uL [place] # (Auto) 300 (0-900) /uL Eos # (Auto) 100 (0-450) /uL Baso # (Auto) 0 (0-100) /uL Sodium 140 (137-145) mmol/L Potassium 3.5 (3.4-5.1) mmol/L Chloride 106 (98-107) mmol/L Carbon Dioxide 25 (22-32) mmol/L BUN 8 (7-17) mg/dL Creatinine 0.66 (0.52-1.04) mg/dL Estimated GFR > 60 (>60) mL/min BUN/Creatinine Ratio 12.1 (6-22) Glucose 201 H (80-110) mg/dL Lactate 4.1 H* 4.0 H (0.7-2.1) mmol/L Calcium 8.5 (8.4-10.2) mg/dL Total Bilirubin 1.2 (0.2-1.3) mg/dL AST 105 H (14-36) IU/L ALT 44 H (<35) IU/L Alkaline Phosphatase 99 (38-126) U/L Ammonia 23 (9-30) umol/L Total Protein 6.8 (6.3-8.2) g/dL Albumin 3.1 L (3.5-5.0) g/dL Globulin 3.7 (1.7-4.1) g/dL Albumin/Globulin Ratio 0.8 L (1.0-2.8) Ethyl Alcohol 196 H ( - 10) mg/dL Blood Type A Positive Antibody Screen Positive Antibody Identification Anti-C Crossmatch See Detail ECG Data Interpretation: 84 beats per minute. Appears accelerated. No SD interval seen. No ST T wave changes, no STEMI MDM Narrative Medical decision making narrative: Large amount of bright red blood per rectum, recent proctopexy to try and band hemorrhoids to stop bleeding. Patient does have a large amount of bright red blood on her pajama bottoms. Patient hemodynamically stable, does endorse drinking earlier in the evening as a stress response to abdominal pain. Thiamine and folic acid ordered. Laboratory work and CT imaging ordered. Initial hemoglobin 9.1, up from 8.5 on 01/20/2024. Platelets 104, up from 81. Ammonia 23, T bili 1.2, AST 105, ALT 44, Alk phos 99. Lactic acid 4.1 CT angio imaging of the abdomen and pelvis shows diffuse circumferential wall thickening of the cecum that could possibly be colitis. Possible proctitis seen as well. While in the emergency department patient had large bloody bowel movement with clots. 1g TXA ordered. Patient has received TXA in the past which reportedly helped her bleeding. <Ruth Rodriguez, - Last Filed: 02/09/24 11:39> Lab Data Labs: Lab Results 02/09/24 02/09/24 02/09/24 Range/Units 04:55 05:48 07:03 WBC 3.7 L (4.5-11.0) X10^3/uL RBC 3.40 L (4.0-5.2) X10^6/uL Hgb 9.1 L (12.0-16.0) g/dL Hct 27.7 L (36-46) % MCV 81.5 (80-100) fL MCH 26.7 (26-34) PG MCHC 32.7 (30-36) % RDW 18.5 H (11.6-14.8) % Plt Count 104 L (150-400) X10^3/uL Neut % (Auto) 50.5 (50-75) % Lymph % (Auto) 37.0 (25-40) % [place] % (Auto) 9.4 (3-14) % Eos % (Auto) 2.1 (2-4) % Baso % (Auto) 1.0 (0-2) % Neut # (Auto) 1800 (4819-1481) /uL Lymph # (Auto) 1400 (3921-2479) /uL [place] # (Auto) 300 (0-900) /uL Eos # (Auto) 100 (0-450) /uL Baso # (Auto) 0 (0-100) /uL Sodium 140 (137-145) mmol/L Potassium 3.5 (3.4-5.1) mmol/L Chloride 106 (98-107) mmol/L Carbon Dioxide 25 (22-32) mmol/L BUN 8 (7-17) mg/dL Creatinine 0.66 (0.52-1.04) mg/dL Estimated GFR > 60 (>60) mL/min BUN/Creatinine Ratio 12.1 (6-22) Glucose 201 H (80-110) mg/dL Lactate 4.1 H* 4.0 H (0.7-2.1) mmol/L Calcium 8.5 (8.4-10.2) mg/dL Total Bilirubin 1.2 (0.2-1.3) mg/dL AST 105 H (14-36) IU/L ALT 44 H (<35) IU/L Alkaline Phosphatase 99 (38-126) U/L Ammonia 23 (9-30) umol/L Total Protein 6.8 (6.3-8.2) g/dL Albumin 3.1 L (3.5-5.0) g/dL Globulin 3.7 (1.7-4.1) g/dL Albumin/Globulin Ratio 0.8 L (1.0-2.8) Ethyl Alcohol 196 H ( - 10) mg/dL Blood Type A Positive Antibody Screen Positive Antibody Identification Anti-C Crossmatch See Detail MDM Narrative Medical decision making narrative: Large amount of bright red blood per rectum, recent proctopexy to try and band hemorrhoids to stop bleeding. Patient does have a large amount of bright red blood on her pajama bottoms. Patient hemodynamically stable, does endorse drinking earlier in the evening as a stress response to abdominal pain. Thiamine and folic acid ordered. Laboratory work and CT imaging ordered. Initial hemoglobin 9.1, up from 8.5 on 01/20/2024. Platelets 104, up from 81. Ammonia 23, T bili 1.2, AST 105, ALT 44, Alk phos 99. Lactic acid 4.1 CT angio imaging of the abdomen and pelvis shows diffuse circumferential wall thickening of the cecum that could possibly be colitis. Possible proctitis seen as well. While in the emergency department patient had large bloody bowel movement with clots. 1g TXA ordered. Patient has received TXA in the past which reportedly helped her bleeding. Dr. Rodriguez 02/09/2024: Patient signed out to myself. Patient seen and evaluated by myself. She states she is well currently but got dizzy earlier. She has had at least 2 bright red bowel movements here in the department heart rate is 100 in the room was 80 systolic reportedly low as 70. Patient states she is feeling improved. She has had type and screen, she has had a L of fluids this did seem to improve her blood pressure. Hemoglobin was 9.14 45 this morning, platelets are 104 up from 81, lactate was elevated repeat is pending. LFTs fairly similar to prior. Patient had CT angio which shows circumferential wall thickening of the cecum as well as rectum with suture material at the rectum. I spoke with Dr. Macedo on-call for General surgery who performed her prior procedure she was happy to see patient. Spoke with Dr. Monahan hospitalist who accepts for admission. Reviewed patient's vitals, recent GI bleeding appears to be lower GIs has been bright red. Critical Care Time <Ruth Marroquin MD - Last Filed: 02/09/24 20:17> Critical Care Time Critical Care Time: Yes Total Critical Care Time: 43 Attestation: Lower GI bleed requiring TXA, admission for further treatment Discharge Plan Departure Patient Disposition: Admitted As Inpatient Clinical Impression: Hematochezia, Pancytopenia, Alcoholic cirrhosis, GI bleed, Alcohol use disorder Admit Date/Time: 02/09/24 07:23 Admit Provider: Iftikhar Monahan
[2024-02-09 05:18] LABS: Add Manual Diff / Slide Review NO; Basophils Absolute Auto 0 /uL (0-100); Eosinophils Absolute Auto 100 /uL (0-450); Eosinophils Percent Auto 2.1 % (2-4); Hematocrit 27.7 % (36-46); Hemoglobin 9.1 g/dL (12.0-16.0); Lymphocytes Absolute Auto 1400 /uL (1100-4500); Mean Corpuscular HGB Conc 32.7 % (30-36); Mean Corpuscular Hemoglobin 26.7 PG (26-34); Mean Corpuscular Volume 81.5 fL (80-100); Monocytes Absolute Auto 300 /uL (0-900); Monocytes Percent Auto 9.4 % (3-14); Neutrophils Absolute Auto 1800 /uL (1500-7000); Neutrophils Percent Auto 50.5 % (50-75); Platelet Count 104 X10^3/uL (150-400); Red Cell Distribution Width 18.5 % (11.6-14.8); White Blood Cell Count 3.7 X10^3/uL (4.5-11.0)
[2024-02-09 05:25] LABS: Alanine Aminotransferase 44 IU/L (<35); Albumin 3.1 g/dL (3.5-5.0); Albumin Globulin Ratio 0.8 (1.0-2.8); Alkaline Phosphatase 99 U/L (38-126); Aspartate Aminotransferase 105 IU/L (14-36); BUN Creatinine Ratio 12.1 (6-22); Bilirubin Total 1.2 mg/dL (0.2-1.3); Blood Urea Nitrogen 8 mg/dL (7-17); Calcium 8.5 mg/dL (8.4-10.2); Carbon Dioxide 25 mmol/L (22-32); Chloride 106 mmol/L (98-107); Estimated Glomerular Filt Rate > 60 mL/min (>60); Ethanol (ETOH) 196 mg/dL; Globulin 3.7 g/dL (1.7-4.1); Glucose 201 mg/dL (80-110); HEMOLYSIS < 15 (0-50); Potassium 3.5 mmol/L (3.4-5.1); Sodium 140 mmol/L (137-145); Total Protein 6.8 g/dL (6.3-8.2)
[2024-02-09 05:27] LABS: Lactate (Lactic Acid) 4.1 mmol/L (0.7-2.1)
[2024-02-09] MEDS: THIAMINE 200 MG in SODIUM CHLORIDE 0.9% 100 ML 408 MG IV (05:52)
[2024-02-09] MEDS: FOLIC ACID 1 MG TABLET PO (05:56)
[2024-02-09 06:11] LABS: Ammonia (NH3) 23 umol/L (9-30)
--- NOTE | 2024-02-09 06:30 | PC.NURSE ---
Pt calling out for pain in abdomen while on the bedside commode. Pt is passing dark red blood in what appears to be a continuous movement. Pt stating that the room is going black. Pt placed on Bp monitor and vitals reassessed throughout the event. Pts bp noted to drop to 78 systolic. ! L of GRADY Marroquin approval. Pt Bp increased.
[2024-02-09 06:50] LABS: Reflexed Lactate in 2 Hours Y
[2024-02-09] MEDS: TRANEXAMIC ACID 1,000 MG in SODIUM CHLORIDE 0.9% 100 ML 200 MG IV (07:06)
[2024-02-09] MEDS: fentaNYL 100 MCG/2 ML INJ 25 MCG IV (07:49)
[2024-02-09] MEDS: LACTATED RINGERS 1,000 ML 125 ML IV (07:49)
--- NOTE | 2024-02-09 08:00 | PM.HP.1 ---
History of Present Illness History of Present Illness Date Patient Seen: 02/09/24 Chief complaint: Rectal Bleed Narrative: From ED doctor: 64-year-old female with history of alcohol use disorder, cirrhosis, hypothyroidism, history of GI bleed secondary to internal hemorrhoids presents by EMS from home for bright red blood per rectum. Patient underwent banding of internal hemorrhoids on 01/19/2024 for GI bleed requiring transfusion of blood products. Patient discharged home on 01/20/2024 and has not had any bleeding since then. Patient states that last night she began to feel lower abdominal pain that caused her to have a drink of alcohol. She went to the restroom and a ?large? amount of blood came out of her rectum. EMS reports that son at bedside reported a pt of blood, patient thinks that it may have been even more than that. Additional information: She was doing well until this morning at about 3 when she started to pass bright red blood per rectum. She also has a pain in the lower abdomen. No nausea. She felt fine yesterday. She did use some alcohol yesterday, which is rare per her report. She denies any specific isolated pain with defecation. She was status post a hemorrhoid procedure approximately [address] Macedo. The patient did develop hypotension in the ED and required 1500 mils of LR bolus, her hemoglobin dropped and she was now being transfused with 1 unit of blood. Upon arrival to the floor she was transferred to CCU status and her blood pressure has improved. She was a mild resting tachycardia. She denies any chest pain or dyspnea. [facility] Medical History Multilevel spondylosis Back pain Alcoholic cirrhosis GERD (gastroesophageal reflux disease) Pancytopenia Thrombocytopenia Anemia due to blood loss, acute Bleeding internal hemorrhoids Pancreatic lesion (~04/18/23) Weakness of left upper extremity Stroke Anemia, macrocytic Anemia, blood loss Alcohol use disorder, severe, in early remission Hemorrhoids, internal Depression Shortness of breath Hypercalcemia Weight gain Ascites due to alcoholic cirrhosis SBO (small bowel obstruction) Pancreatitis Intermittent palpitations (04/2019) History of blood transfusion (10/2015) Coagulation disorder (2012) Hypothyroidism Hypertension History of heavy periods (2014) Ovarian cyst (2012) Painful menstrual periods (2012) Measles Mumps Chicken pox Eczema (2014) Psoriasis (2014) PTSD (post-traumatic stress disorder) (1999) Anxiety EV (esophageal varices) (10/2015) Portal hypertensive gastropathy (05/2015) Nonalcoholic fatty liver disease GI bleeding (2015) Cirrhosis (2012) Cardiac arrhythmia History of alcohol abuse (12/27/15) Surgical History H/O bilateral oophorectomy History of appendectomy History of inguinal hernia repair History of cholecystectomy History of esophagogastroduodenoscopy (EGD) (05/2015) Status post laparoscopic supracervical hysterectomy (08/25/16) Status post hysteroscopy (06/17/11) Status post hernia repair Status post appendectomy History of esophagogastroduodenoscopy (EGD) (01/2009) Status post colonoscopy (01/2009) Family History Grandfather Heart disease [place] (myocardial infarction) Grandmother Alcoholism Father No problems noted. Mother No problems noted. Grandfather Heart disease Grandmother Colon cancer Brother No problems noted. Social History household members: family Smoking Status: Never smoker alcohol intake: former Meds Home Medications and Allergies Home Medications Medication Instructions Recorded Confirmed Type lactulose 10 gram/15 mL oral 15 ml PO BID PRN per patient 10/16/22 01/28/24 History solution discretion rifaximin 550 mg tablet (Xifaxan) 550 mg PO BID 06/16/23 01/28/24 History spironolactone 50 mg tablet 50 mg PO DAILY #90 tabs 06/30/23 01/28/24 Rx furosemide 20 mg tablet 40 mg (2 x 20 mg) PO QAM #60 tabs 10/07/23 01/28/24 Rx liothyronine 5 mcg tablet 10 mcg (2 x 5 mcg) PO DAILY #180 10/14/23 01/28/24 Rx tabs nadolol 20 mg tablet 30 mg (1.5 x 20 mg) PO DAILY #135 10/14/23 01/28/24 Rx tabs magnesium oxide 500 mg PO DAILY #30 tabs 10/22/23 01/28/24 Rx pregabalin 75 mg capsule 75 mg PO TID #90 caps 10/22/23 01/28/24 Rx levothyroxine 100 mcg capsule 100 mcg PO DAILY #90 caps 01/11/24 01/28/24 Rx lorazepam 0.5 mg tablet 0.5 mg PO BEDTIME PRN sleep #45 01/28/24 01/28/24 Rx tabs potassium chloride 20 mEq 20 meq PO BID #180 tabs 02/08/24 Rx tablet,extended release(part/cryst) (Klor-Con M) vit,calcium no.40-iron 1 tab PO DAILY #90 tabs 02/08/24 Rx fum 27 mg iron-folate no.1 1 mg tablet Allergies Allergy/AdvReac Type Severity Reaction Status Date / Time doxepin Allergy Intermediate ITCHING Verified 02/05/24 09:35 Review of Systems Review of Systems Narrative: All else reviewed and otherwise unremarkable except as noted in the history and physical. Exam Vital Signs (past 8 hours): - 02/09/24 05:03 02/09/24 05:07 02/09/24 05:07 Pulse Rate 104 H 98 H Respiratory Rate 16 Blood Pressure 107/79 107/79 Pulse Oximetry 100 98 Oxygen Delivery Method Room Air 02/09/24 05:50 02/09/24 05:51 02/09/24 05:51 Pulse Rate 99 H 93 H Respiratory Rate 17 12 Blood Pressure 109/69 Pulse Oximetry 98 100 Oxygen Delivery Method 02/09/24 06:00 02/09/24 06:00 02/09/24 06:30 Pulse Rate 96 H Respiratory Rate 22 Blood Pressure 100/57 L 95/50 L Pulse Oximetry 98 Oxygen Delivery Method 02/09/24 06:30 02/09/24 06:35 02/09/24 06:44 Pulse Rate 99 H Respiratory Rate 24 Blood Pressure 92/55 L Pulse Oximetry 97 100 Oxygen Delivery Method 02/09/24 06:47 02/09/24 06:47 02/09/24 06:49 Pulse Rate 101 H 100 H Respiratory Rate 24 18 Blood Pressure 78/53 L Pulse Oximetry 98 98 Oxygen Delivery Method 02/09/24 06:49 02/09/24 06:52 02/09/24 06:52 Pulse Rate 101 H Respiratory Rate 17 Blood Pressure 80/39 L 95/64 Pulse Oximetry 98 Oxygen Delivery Method 02/09/24 06:56 02/09/24 06:56 02/09/24 07:00 Pulse Rate 99 H 90 Respiratory Rate 26 H 22 Blood Pressure 98/66 Pulse Oximetry 98 99 Oxygen Delivery Method 02/09/24 07:05 02/09/24 07:05 02/09/24 07:08 Pulse Rate 101 H Respiratory Rate 34 H Blood Pressure 103/60 90/53 L Pulse Oximetry 99 Oxygen Delivery Method 02/09/24 07:08 02/09/24 07:12 02/09/24 07:12 Pulse Rate 101 H 101 H Respiratory Rate 36 H 27 H Blood Pressure 86/50 L Pulse Oximetry 99 99 Oxygen Delivery Method 02/09/24 07:16 02/09/24 07:16 Pulse Rate 99 H Respiratory Rate 30 H Blood Pressure 96/53 L Pulse Oximetry 99 Oxygen Delivery Method Oxygen Delivery Method Room Air Narrative Exam Narrative: NAD, alert and oriented, fluent speech, calm. Normocephalic skull, EOMI, anicteric sclera, symmetric pupils. Oropharynx unremarkable, no droop. Neck supple, midline trachea, no adenopathy. Lungs clear, normal rate and effort. Heart regular, no murmur gallop or rub. Abdomen is soft, distended and non tender. Extremities are free of edema. Skin is free of rash or lesions. Joints are not swollen or deformed. Judgment appears to be normal. Objective ECG Impression: 84 beats per minute. Appears accelerated. No MN interval seen. No ST T wave changes, no STEMI Imaging CT Angio abdomen:: Radiologist's impression: CT angio imaging of the abdomen and pelvis shows diffuse circumferential wall thickening of the cecum that could possibly be colitis. Possible proctitis seen as we Labs 02/09/24 08:15 02/09/24 04:55 Labs: Laboratory Results - last 24 hr 02/09/24 02/09/24 02/09/24 04:55 05:48 07:03 WBC 3.7 L RBC 3.40 L Hgb 9.1 L Hct 27.7 L MCV 81.5 MCH 26.7 MCHC 32.7 RDW 18.5 H Plt Count 104 L Neut % (Auto) 50.5 Lymph % (Auto) 37.0 [place] % (Auto) 9.4 Eos % (Auto) 2.1 Baso % (Auto) 1.0 Neut # (Auto) 1800 Lymph # (Auto) 1400 [place] # (Auto) 300 Eos # (Auto) 100 Baso # (Auto) 0 Sodium 140 Potassium 3.5 Chloride 106 Carbon Dioxide 25 BUN 8 Creatinine 0.66 Estimated GFR > 60 BUN/Creatinine Ratio 12.1 Glucose 201 H Lactate 4.1 H* 4.0 H Calcium 8.5 Total Bilirubin 1.2 AST 105 H ALT 44 H Alkaline Phosphatase 99 Ammonia 23 Total Protein 6.8 Albumin 3.1 L Globulin 3.7 Albumin/Globulin Ratio 0.8 L Ethyl Alcohol 196 H Blood Type A Positive Assessment & Plan Assessment & Plan narrative: 1. Acute blood loss anemia secondary to hemorrhoidal bleeding 2. Acute on chronic thrombocytopenia 3. Liver induced cirrhosis and portal hypertension with known esophageal varices, present on admission and active. 4. Recent admission for baclofen withdrawal, present on admission and active. 5. Polypharmacy, present on admission and active. 6. Chronic back pain, present on admission and active. 7. Chronic pancreatitis, stable. 8. Anxiety and depression, stable. 9. Hypothyroidism, present on admission and stable. PLAN: -trend hemoglobin -blood product support as needed. 1 unit blood ordered for this AM. -general surgery consultation, concern regarding hemorrhoids causing recurrent bleeding. -monitor for alcohol withdrawal symptoms. Full code. She was admitted inpatient status with anticipation of a 2 midnight need for hospital services. Time-Based Coding :: 35 min spent with patient and on the chart (including review of chart, obtaining history, exam, reviewing outside data, placing orders, documenting exam and treatment plan, and counseling patient) on 02/08. Quality MIPS - Admit I confirm the patient?s Advance Care Plan is present, Code status is documented, Surrogate decision maker is in patient?s record [If Yes, STOP here]: Yes MIPS - Meds 'Current medications' to include all prescriptions, [id number] products, herbals, cannabis/cannabidiol products, and vitamin/mineral/dietary (nutritional) supplements. I have utilized all available resources to obtain, update, or review the patient?s current medications. [If Yes, STOP here]: Yes
[2024-02-09] MEDS: LACTATED RINGERS 1,000 ML 1000 ML IV (08:20)
--- NOTE | 2024-02-09 08:22 | PC.NURSE ---
Dr. Monahan made aware of two consecutive SBP in the 80s. LR bolus and repeat H&H ordered. Continuing to monitor pt for any hemodynamic changes.
[2024-02-09 08:23] LABS: Hematocrit 23.3 % (36-46); Hemoglobin 7.6 g/dL (12.0-16.0)
--- NOTE | 2024-02-09 08:29 | PC.NURSE ---
Dr. Monahan made aware of change in H&H, 1 unit PRBC ordered.
[2024-02-09] MEDS: DEXTROSE 5%-0.9% NS 1,000 ML 100 ML IV ×2 (09:17→18:33)
[2024-02-09] MEDS: ONDANSETRON 4 MG/2 ML INJ IV ×2 (09:21→18:33)
[2024-02-09] MEDS: MORPHINE 2 MG/ML INJ IV ×2 (10:02→20:10)
--- NOTE | 2024-02-09 12:05 | PM.CALLCOV.1 ---
Call Coverage Note Note Date of Patient Contact: 02/09/24 Time of Patient Contact: 12:05 Narrative of Care Provided: Recurrent BRBPR, could be staple line scab dislodged. or source from cecum. TXA given. Will follow for observation. Recheck labs as I anticipate her anemia will require transfusion.
[2024-02-09 13:12] LABS: MRSA (Nasal) PCR NOT DETECTED (Not Detect)
[2024-02-09 15:18] LABS: Hematocrit 23.7 % (36-46); Hemoglobin 7.9 g/dL (12.0-16.0)
[2024-02-09 18:50] LABS: Hematocrit 24.8 % (36-46); Hemoglobin 8.2 g/dL (12.0-16.0)
[2024-02-09 19:01] LABS: Lactate (Lactic Acid) 3.3 mmol/L (0.7-2.1)
[2024-02-09] MEDS: SODIUM CHLORIDE 0.9% FLUSH 10 ML IV (20:10)
[2024-02-09] MEDS: LORazepam 0.5 MG TABLET PO (20:11)
[2024-02-09] MEDS: PREGABALIN 75 MG CAPSULE PO (20:11)
[2024-02-09 20:23] LABS: Reflexed Lactate in 2 Hours Y
[2024-02-09] MEDS: POTASSIUM CHLORIDE 20 MEQ TAB PO (20:56)
[2024-02-09] MEDS: RIFAXIMIN 200 MG TABLET 400 MG PO (20:56)
[2024-02-09] MEDS: PROPRANOLOL 10 MG TABLET 15 MG PO (20:58)
[2024-02-09 21:14] LABS: Lactate 2HR (Lactic Acid Rflx) 2.3 mmol/L (0.7-2.1)
[2024-02-09 23:05] LABS: Hematocrit 22.5 % (36-46); Hemoglobin 7.5 g/dL (12.0-16.0)
[2024-02-10] VITALS (14 sets, daily range): BP systolic 90–120; BP diastolic 50–76; PULSE 70–83; RESP 18–53; TEMP 36.4–37.7; O2SAT 95–100
[2024-02-10] MEDS: diphenhydrAMINE 25 MG TABLET PO (01:15)
[2024-02-10] MEDS: DEXTROSE 5%-0.9% NS 1,000 ML 100 ML IV (04:08)
[2024-02-10 04:26] LABS: Add Manual Diff / Slide Review NO; Basophils Absolute Auto 0 /uL (0-100); Basophils Percent Auto 0.9 % (0-2); Eosinophils Absolute Auto 100 /uL (0-450); Eosinophils Percent Auto 3.1 % (2-4); Lymphocytes Absolute Auto 900 /uL (1100-4500); Lymphocytes Percent Auto 34.4 % (25-40); Mean Corpuscular HGB Conc 33.7 % (30-36); Mean Corpuscular Hemoglobin 27.8 PG (26-34); Mean Corpuscular Volume 82.5 fL (80-100); Monocytes Absolute Auto 400 /uL (0-900); Monocytes Percent Auto 14.8 % (3-14); Neutrophils Absolute Auto 1300 /uL (1500-7000); Neutrophils Percent Auto 46.8 % (50-75); Platelet Count 51 X10^3/uL (150-400); Red Blood Cell Count 2.52 X10^6/uL (4.0-5.2); Red Cell Distribution Width 16.9 % (11.6-14.8); White Blood Cell Count 2.7 X10^3/uL (4.5-11.0)
[2024-02-10 04:52] LABS: Hematocrit 20.7 % (36-46)
[2024-02-10 05:03] LABS: BUN Creatinine Ratio 12.7 (6-22); Blood Urea Nitrogen 8 mg/dL (7-17); Calcium 7.4 mg/dL (8.4-10.2); Carbon Dioxide 23 mmol/L (22-32); Chloride 108 mmol/L (98-107); Estimated Glomerular Filt Rate > 60 mL/min (>60); Glucose 117 mg/dL (80-110); HEMOLYSIS 20 (0-50); Potassium 3.4 mmol/L (3.4-5.1); Sodium 134 mmol/L (137-145)
--- NOTE | 2024-02-10 06:17 | PC.NURSE ---
Director Style Note-At beginning of shift, patient had an episode of nausea and retching without vomit, caused 8/10 epigastric pain and anxiety. Resolved with IV morphine and PO Ativan per prn. HR ST up to 120s, down to SR 70s by am. BP 90s-100s/50-70s MAP >65, see vital trends. Denied dizziness when up to BSC. Moderate brown, guaiac negative stool. H/H drawn Q6H overnight, trending downward 7.5/22.5 to 7.0/20.7, am platelets [facility], no new orders received except 25mg PO Benadryl x1 dose for sleep per patients request.
[2024-02-10] MEDS: LIOTHYRONINE 5 MCG TABLET 10 MCG PO (06:42)
[2024-02-10] MEDS: LEVOTHYROXINE 100 MCG TABLET PO (06:42)
--- NOTE | 2024-02-10 07:31 | PM.PN.1 ---
Subjective Subjective Interval history: S: Hemoglobin is lower today, unit of blood has been ordered. She denies any rectal bleeding since the emergency department. She feels better today. No pain, or dyspnea. Hemoglobin down to 7.0. Exam Vital Signs (past 8 hours): - 02/10/24 00:00 02/10/24 00:00 02/10/24 02:00 Temperature 98.6 F Pulse Rate 83 Respiratory Rate 20 Blood Pressure 94/56 L 90/52 L Pulse Oximetry 95 Oxygen Delivery Method Room Air Oxygen Flow Rate 0 02/10/24 02:00 02/10/24 04:00 02/10/24 04:00 Temperature 97.5 F L Pulse Rate 78 71 Respiratory Rate 19 20 Blood Pressure 100/60 Pulse Oximetry 98 98 Oxygen Delivery Method Room Air Oxygen Flow Rate 0 0 02/10/24 06:00 02/10/24 06:00 Temperature Pulse Rate 81 Respiratory Rate 24 Blood Pressure 106/62 Pulse Oximetry 98 Oxygen Delivery Method Oxygen Flow Rate 0 Oxygen Delivery Method Room Air Oxygen Flow Rate 0 Narrative Exam Narrative: NAD, alert and oriented. Fluent speech. Lungs are clear, normal rate and effort. Heart is regular, no murmur gallop or rub. Abdomen is soft, non distended. Extremities are free of edema. Objective Labs 02/10/24 04:08 02/10/24 04:08 Labs: Laboratory Results - last 24 hr 02/09/24 02/09/24 02/09/24 05:48 07:03 08:15 WBC RBC Hgb 7.6 L Hct 23.3 L MCV MCH MCHC RDW Plt Count Neut % (Auto) Lymph % (Auto) [place] % (Auto) Eos % (Auto) Baso % (Auto) Neut # (Auto) Lymph # (Auto) [place] # (Auto) Eos # (Auto) Baso # (Auto) Sodium Potassium Chloride Carbon Dioxide BUN Creatinine Estimated GFR BUN/Creatinine Ratio Glucose Lactate 4.0 H Calcium Nasal Screen MRSA (PCR) Blood Type A Positive Antibody Screen Positive Antibody Identification Anti-C Crossmatch See Detail 02/09/24 02/09/24 02/09/24 09:50 15:10 18:43 WBC RBC Hgb 7.9 L 8.2 L Hct 23.7 L 24.8 L MCV MCH MCHC RDW Plt Count Neut % (Auto) Lymph % (Auto) [place] % (Auto) Eos % (Auto) Baso % (Auto) Neut # (Auto) Lymph # (Auto) [place] # (Auto) Eos # (Auto) Baso # (Auto) Sodium Potassium Chloride Carbon Dioxide BUN Creatinine Estimated GFR BUN/Creatinine Ratio Glucose Lactate 3.3 H Calcium Nasal Screen MRSA (PCR) Not detected Blood Type Antibody Screen Antibody Identification Crossmatch 02/09/24 02/09/24 02/10/24 20:43 23:00 04:08 WBC 2.7 L RBC 2.52 L Hgb 7.5 L 7.0 L Hct 22.5 L 20.7 L* MCV 82.5 MCH 27.8 MCHC 33.7 RDW 16.9 H Plt Count 51 L Neut % (Auto) 46.8 L Lymph % (Auto) 34.4 [place] % (Auto) 14.8 H Eos % (Auto) 3.1 Baso % (Auto) 0.9 Neut # (Auto) 1300 L Lymph # (Auto) 900 L [place] # (Auto) 400 Eos # (Auto) 100 Baso # (Auto) 0 Sodium 134 L Potassium 3.4 Chloride 108 H Carbon Dioxide 23 BUN 8 Creatinine 0.63 Estimated GFR > 60 BUN/Creatinine Ratio 12.7 Glucose 117 H Lactate 2.3 H Calcium 7.4 L Nasal Screen MRSA (PCR) Blood Type Antibody Screen Antibody Identification Crossmatch [facility] Medical History Multilevel spondylosis Back pain Alcoholic cirrhosis GERD (gastroesophageal reflux disease) Pancytopenia Thrombocytopenia Anemia due to blood loss, acute Bleeding internal hemorrhoids Pancreatic lesion (~04/18/23) Weakness of left upper extremity Stroke Anemia, macrocytic Anemia, blood loss Alcohol use disorder, severe, in early remission Hemorrhoids, internal Depression Shortness of breath Hypercalcemia Weight gain Ascites due to alcoholic cirrhosis SBO (small bowel obstruction) Pancreatitis Intermittent palpitations (04/2019) History of blood transfusion (10/2015) Coagulation disorder (2012) Hypothyroidism Hypertension History of heavy periods (2014) Ovarian cyst (2012) Painful menstrual periods (2012) Measles Mumps Chicken pox Eczema (2014) Psoriasis (2014) PTSD (post-traumatic stress disorder) (1999) Anxiety EV (esophageal varices) (10/2015) Portal hypertensive gastropathy (05/2015) Nonalcoholic fatty liver disease GI bleeding (2015) Cirrhosis (2012) Cardiac arrhythmia History of alcohol abuse (12/27/15) Surgical History H/O bilateral oophorectomy History of appendectomy History of inguinal hernia repair History of cholecystectomy History of esophagogastroduodenoscopy (EGD) (05/2015) Status post laparoscopic supracervical hysterectomy (08/25/16) Status post hysteroscopy (06/17/11) Status post hernia repair Status post appendectomy History of esophagogastroduodenoscopy (EGD) (01/2009) Status post colonoscopy (01/2009) Family History Grandfather Heart disease [place] (myocardial infarction) Grandmother Alcoholism Father No problems noted. Mother No problems noted. Grandfather Heart disease Grandmother Colon cancer Brother No problems noted. Social History household members: family Smoking Status: Never smoker alcohol intake: former Assessment & Plan Assessment & Plan narrative: 1. Acute blood loss anemia secondary to hemorrhoidal bleeding, present on admission and active. 2. Acute on chronic thrombocytopenia, present on admission and active. 3. Liver induced cirrhosis and portal hypertension with known esophageal varices, present on admission and active. 4. Recent admission for baclofen withdrawal, present on admission and active. 5. Polypharmacy, present on admission and active. 6. Chronic back pain, present on admission and active. 7. Chronic pancreatitis, stable. 8. Anxiety and depression, stable. 9. Hypothyroidism, present on admission and stable. PLAN: -trend hemoglobin -1 additional unit blood ordered for this AM. -general surgery consultation, discuss with surgery again today. -monitor for alcohol withdrawal symptoms. None. -monitor for rectal bleeding. NARA: Today if no rectal bleeding, otherwise tomorrow. Full code. She was admitted inpatient status with anticipation of a 2 midnight need for hospital services. Time-Based Coding :: 30 min spent with patient and on the chart (including review of chart, obtaining history, exam, reviewing outside data, placing orders, documenting exam and treatment plan, and counseling patient) on 02/09. Quality VTE Deep Vein Thrombosis/Pulmonary Embolism Present on Admission: No
[2024-02-10] MEDS: SODIUM CHLORIDE 0.9% FLUSH 10 ML IV (08:45)
[2024-02-10] MEDS: PROPRANOLOL 10 MG TABLET 15 MG PO (08:46)
[2024-02-10] MEDS: POTASSIUM CHLORIDE 20 MEQ TAB PO (08:46)
[2024-02-10] MEDS: PREGABALIN 75 MG CAPSULE PO ×2 (08:46→14:34)
[2024-02-10] MEDS: FUROSEMIDE 20 MG TABLET 40 MG PO (08:49)
[2024-02-10] MEDS: RIFAXIMIN 200 MG TABLET 400 MG PO ×2 (08:49→14:34)
[2024-02-10] MEDS: SPIRONOLACTONE 25 MG TABLET 50 MG PO (08:49)
[2024-02-10] MEDS: PRENATAL VIT,CALC/IRON/FOLIC 1 TABLET 1 TAB PO (08:50)
[2024-02-10] MEDS: MAGNESIUM OXIDE 400 MG TABLET PO (08:56)
[2024-02-10 11:42] LABS: COVID-19 CEPHEID 4-PLEX PCR Negative (Negative); Influenza A - CEPHEID Flu A NEGATIVE (NEGATIVE); Influenza B - CEPHEID Flu B NEGATIVE (NEGATIVE); Respiratory Syncytial Virus Negative (Negative)
--- NOTE | 2024-02-10 13:58 | CM.DANOTE ---
DCP Assessment note Pt is a 64yo F here under INPT status following acute blood loss from rectal bleeding. Readmit, recent admissions of 01/16-01/19, 01/09-01/10, and 12/31-01/01 for similar concerns. PCP Divina Mohan [facility] and [employer] RETURNS CLERK reviewed EMR. Per hospitalist, if H&H stable dc later today with family support. Recheck at 3pm. Per previous CM notes, pt lives with family in [place]. Mother Brigitte Chand recently became POA. Per RN report, no CM needs likely. Per previous CM reports, a referral to Comm non destructive testing specialist previously was made, and has discharged home with no additional CM needs in previous admissions. P: home today vs tomorrow, pending active bleeding. Likely no CM needs/no identified barriers to safe dc home at this time. Likely close f/u in OP setting recommended. CM team will continue to follow as needed REBA Campbell Discharge Planning/Care Management CM Discharge Assessment Start: 02/10/24 13:53 Freq: Status: Active Protocol: Document 02/10/24 13:53 (Rec: 02/10/24 13:58 [id number]) Discharge Planning Assessment Assigned Jewel Hole Gauger REBA Diaz DPOA/Assigned Designee Name father Fernandez Contact Information [phone] Advance Directives? Yes Advance Directives on File No History Provided By Patient,Family Member,Medical Record Has Patient been admitted in last 30 Yes days? Comment 01/17/24-01/20/24, 01/10/24-01/11/24 , and 01/01/24-01/02/24 all for similar concerns Prior Living Arrangements House Household Members family Type of transporation used prior to Drives own vehicle admit Independent with ADL's Yes Is patient alert and oriented? Yes Discharge Plan Home Transportation Arrangement Family or friends Referrals Initiated None needed Review Status In Process Please Provide Date Initial DC 02/10/24 Assessment Was Performed Next Review Type Continued Stay Review
[2024-02-10 15:43] LABS: Hematocrit 27.2 % (36-46); Hemoglobin 9.1 g/dL (12.0-16.0)
--- NOTE | 2024-02-10 16:47 | P.DS_ITS ---
History of Present Illness History of Present Illness Chief complaint: Rectal Bleed Narrative: From ED doctor: 64-year-old female with history of alcohol use disorder, cirrhosis, hypothyroidism, history of GI bleed secondary to internal hemorrhoids presents by EMS from home for bright red blood per rectum. Patient underwent banding of internal hemorrhoids on 01/19/2024 for GI bleed requiring transfusion of blood products. Patient discharged home on 01/20/2024 and has not had any bleeding since then. Patient states that last night she began to feel lower abdominal pain that caused her to have a drink of alcohol. She went to the restroom and a ?large? amount of blood came out of her rectum. EMS reports that son at bedside reported a pt of blood, patient thinks that it may have been even more than that. Additional information: She was doing well until this morning at about 3 when she started to pass bright red blood per rectum. She also has a pain in the lower abdomen. No nausea. She felt fine yesterday. She did use some alcohol yesterday, which is rare per her report. She denies any specific isolated pain with defecation. She was status post a hemorrhoid procedure approximately [address] Macedo. The patient did develop hypotension in the ED and required 1500 mils of LR bolus, her hemoglobin dropped and she was now being transfused with 1 unit of blood. Upon arrival to the floor she was transferred to CCU status and her blood pressure has improved. She was a mild resting tachycardia. She denies any chest pain or dyspnea. Discharge Providers Provider Date of admission: 02/09/24 07:23 Discharge Date: 02/10/24 Primary care physician: HARJEET John Consults: 02/09/24 07:19 Consult to General Surgery Stat Comment: Consulting Provider: Belgica Macedo Reason for consultation: lower gi bleed, s/p sx Has provider been notified: Yes 02/09/24 11:50 Consult to Dietitian, Adult Routine Comment: Reason For Exam: Weight loss Discharge provider: Iftikhar Monahan MD Summary Hospital Course Discharge Diagnosis: 1. Acute blood loss anemia secondary to hemorrhoidal bleeding, present on admission and improved. 2. Acute on chronic thrombocytopenia, present on admission and active. 3. Liver induced cirrhosis and portal hypertension with known esophageal varices, present on admission and active. 4. Recent admission for baclofen withdrawal, present on admission and active. 5. Polypharmacy, present on admission and active. 6. Chronic back pain, present on admission and active. 7. Chronic pancreatitis, stable. 8. Anxiety and depression, stable. 9. Hypothyroidism, present on admission and stable. Hospital Course: She was admitted for limited rectal bleeding in context of a recent hemorrhoid procedure. Surgeon did not feel that she required intervention or endoscopy. She did stop bleeding without specific intervention but did receive 2 units of blood while in the hospital. She had no further bleeding since coming up to the nash from the emergency department. She was discussed with the surgeon on the day of discharge and she was felt to be stable for discharge and knows to return immediately for recurrent rectal bleeding. She was multiple comorbid conditions which increase her propensity for bleeding including thrombocytopenia in's and end-stage liver disease. She was given 1 dose of TXA IV in the emergency department. Status at Discharge Cognitive/behavioral status at discharge: oriented Functional status at discharge: independent ambulation Overall status at discharge: patient is back to baseline Time Spent with Patient Time spent: Less than 30 minutes Exam Vital Signs (past 8 hours): - 02/10/24 09:00 02/10/24 09:00 02/10/24 09:02 Temperature 98.7 F 99.4 F Pulse Rate 75 78 Respiratory Rate 27 H 18 Blood Pressure 113/65 113/65 Pulse Oximetry 100 02/10/24 09:20 02/10/24 09:28 02/10/24 09:28 Temperature 100 F H Pulse Rate 70 71 Respiratory Rate 19 19 Blood Pressure 93/60 93/60 Pulse Oximetry 99 02/10/24 10:00 02/10/24 10:00 02/10/24 10:37 Temperature Pulse Rate 78 Respiratory Rate 18 Blood Pressure 110/61 111/68 Pulse Oximetry 96 02/10/24 10:37 02/10/24 11:00 02/10/24 11:25 Temperature 99.5 F Pulse Rate 83 81 80 Respiratory Rate 32 H 18 53 H Blood Pressure 111/65 Pulse Oximetry 99 02/10/24 11:26 Temperature Pulse Rate Respiratory Rate Blood Pressure 120/76 Pulse Oximetry Oxygen Delivery Method Room Air Oxygen Flow Rate 0 Narrative Exam Narrative: NAD, alert and oriented. Fluent speech. Lungs are clear, normal rate and effort. Heart is regular, no murmur gallop or rub. Abdomen is soft, non distended. Extremities are free of edema. Objective Labs 02/10/24 15:10 02/10/24 04:08 Labs: Laboratory Results - last 24 hr 02/09/24 02/09/24 02/09/24 05:48 18:43 20:43 WBC RBC Hgb 8.2 L Hct 24.8 L MCV MCH MCHC RDW Plt Count Neut % (Auto) Lymph % (Auto) [place] % (Auto) Eos % (Auto) Baso % (Auto) Neut # (Auto) Lymph # (Auto) [place] # (Auto) Eos # (Auto) Baso # (Auto) Sodium Potassium Chloride Carbon Dioxide BUN Creatinine Estimated GFR BUN/Creatinine Ratio Glucose Lactate 3.3 H 2.3 H Calcium SARS-CoV-2 (PCR) Influenza A (RT-PCR) Influenza B (RT-PCR) RSV (PCR) Blood Type A Positive Antibody Screen Positive Antibody Identification Anti-C Crossmatch See Detail 02/09/24 02/10/24 02/10/24 23:00 04:08 09:55 WBC 2.7 L RBC 2.52 L Hgb 7.5 L 7.0 L Hct 22.5 L 20.7 L* MCV 82.5 MCH 27.8 MCHC 33.7 RDW 16.9 H Plt Count 51 L Neut % (Auto) 46.8 L Lymph % (Auto) 34.4 [place] % (Auto) 14.8 H Eos % (Auto) 3.1 Baso % (Auto) 0.9 Neut # (Auto) 1300 L Lymph # (Auto) 900 L [place] # (Auto) 400 Eos # (Auto) 100 Baso # (Auto) 0 Sodium 134 L Potassium 3.4 Chloride 108 H Carbon Dioxide 23 BUN 8 Creatinine 0.63 Estimated GFR > 60 BUN/Creatinine Ratio 12.7 Glucose 117 H Lactate Calcium 7.4 L SARS-CoV-2 (PCR) Negative Influenza A (RT-PCR) Flu a negative Influenza B (RT-PCR) Flu b negative RSV (PCR) Negative Blood Type Antibody Screen Antibody Identification Crossmatch 02/10/24 02/10/24 15:10 15:10 WBC RBC Hgb 9.1 L Hct Cancelled 27.2 L MCV MCH MCHC RDW Plt Count Neut % (Auto) Lymph % (Auto) [place] % (Auto) Eos % (Auto) Baso % (Auto) Neut # (Auto) Lymph # (Auto) [place] # (Auto) Eos # (Auto) Baso # (Auto) Sodium Potassium Chloride Carbon Dioxide BUN Creatinine Estimated GFR BUN/Creatinine Ratio Glucose Lactate Calcium SARS-CoV-2 (PCR) Influenza A (RT-PCR) Influenza B (RT-PCR) RSV (PCR) Blood Type Antibody Screen Antibody Identification Crossmatch [facility] Medical History Multilevel spondylosis Back pain Alcoholic cirrhosis GERD (gastroesophageal reflux disease) Pancytopenia Thrombocytopenia Anemia due to blood loss, acute Bleeding internal hemorrhoids Pancreatic lesion (~04/18/23) Weakness of left upper extremity Stroke Anemia, macrocytic Anemia, blood loss Alcohol use disorder, severe, in early remission Hemorrhoids, internal Depression Shortness of breath Hypercalcemia Weight gain Ascites due to alcoholic cirrhosis SBO (small bowel obstruction) Pancreatitis Intermittent palpitations (04/2019) History of blood transfusion (10/2015) Coagulation disorder (2012) Hypothyroidism Hypertension History of heavy periods (2014) Ovarian cyst (2012) Painful menstrual periods (2012) Measles Mumps Chicken pox Eczema (2014) Psoriasis (2014) PTSD (post-traumatic stress disorder) (1999) Anxiety EV (esophageal varices) (10/2015) Portal hypertensive gastropathy (05/2015) Nonalcoholic fatty liver disease GI bleeding (2015) Cirrhosis (2012) Cardiac arrhythmia History of alcohol abuse (12/27/15) Surgical History H/O bilateral oophorectomy History of appendectomy History of inguinal hernia repair History of cholecystectomy History of esophagogastroduodenoscopy (EGD) (05/2015) Status post laparoscopic supracervical hysterectomy (08/25/16) Status post hysteroscopy (06/17/11) Status post hernia repair Status post appendectomy History of esophagogastroduodenoscopy (EGD) (01/2009) Status post colonoscopy (01/2009) Family History Grandfather Heart disease [place] (myocardial infarction) Grandmother Alcoholism Father No problems noted. Mother No problems noted. Grandfather Heart disease Grandmother Colon cancer Brother No problems noted. Social History household members: family Smoking Status: Never smoker alcohol intake: former Discharge Assessment & Plan Assessment and Plan Assessment: 1. Acute blood loss anemia secondary to hemorrhoidal bleeding, present on admission and improved. 2. Acute on chronic thrombocytopenia, present on admission and active. 3. Liver induced cirrhosis and portal hypertension with known esophageal varices, present on admission and active. 4. Recent admission for baclofen withdrawal, present on admission and active. 5. Polypharmacy, present on admission and active. 6. Chronic back pain, present on admission and active. 7. Chronic pancreatitis, stable. 8. Anxiety and depression, stable. 9. Hypothyroidism, present on admission and stable. Plan of Treatment: Discharge home, no change to medications. Return to the emergency department immediately for rectal bleeding. Discharge Plan Discharge Plan Patient Disposition: Home Provider Discharge Comment: Stable for discharge home. We will follow up in ER for recurrent rectal bleeding. Discharge orders & Medications Prescriptions: Continued spironolactone 50 mg tablet 50 mg PO DAILY Qty: 90 3RF furosemide 20 mg tablet 40 mg PO QAM Qty: 60 3RF Rx Instructions: Take 1 extra tab of 20mg (total 40mg) daily liothyronine 5 mcg tablet 10 mcg PO DAILY Qty: 180 3RF nadolol 20 mg tablet 30 mg PO DAILY Qty: 135 3RF Rx Instructions: takes at about 1500 Qday levothyroxine 100 mcg capsule 100 mcg PO DAILY Qty: 90 3RF potassium chloride [Klor-Con M20] 20 mEq tablet,ER particles/crystals 20 meq PO BID Qty: 180 1RF ,calc.[id number] 1 27-1 mg tablet 1 tab PO DAILY Qty: 90 3RF Rx Instructions: Take 1 tab daily for anemia lactulose 10 gram/15 mL solution 15 ml PO BID PRN (Reason: per patient discretion) Patient Comments: Take 30mL daily if pt does not have 3 BMs per day Rx Instructions: patient holds medication with diarrhea Xifaxan 550 mg tablet 550 mg PO BID magnesium oxide 500 mg magnesium tablet 500 mg PO DAILY Qty: 30 3RF pregabalin 75 mg capsule 75 mg PO TID Qty: 90 3RF lorazepam 0.5 mg tablet 0.5 mg PO BEDTIME PRN (Reason: sleep) Qty: 45 3RF Follow up/Referrals: Divina Lopes ARNP [Primary Care Provider] - Discharge Health Status Multidrug resistant organism: No MDRO Diet/Activity/Treatments Diet: Low-sodium Visit Report/Discharge Packet Instructions: Anemia, DI for Rectal Bleeding Stand Alone Forms: Patient Portal/API Discharge Data Primary Care Provider: Divina Lopes VTE Deep Vein Thrombosis/Pulmonary Embolism Present on Admission: No
== END 2024-02-10 17:30 | disposition home or self-care (01) | DRG 254 ==
LOC: ED 07:12 → AC 08:42 → ICU 10:10 → AC 02-12 10:28
PROVIDERS: Emergency Medicine; Admitting Provider Hospitalist; Emergency Provider Emergency Medicine; Family Provider Nurse Practitioner; PCP Nurse Practitioner; Referring Provider Emergency Medicine; Visit Provider Hospitalist
DX: K64.8 Other hemorrhoids (principal); D62 Acute posthemorrhagic anemia; D69.6 Thrombocytopenia, unspecified; K74.60 Unspecified cirrhosis of liver; K76.6 Portal hypertension; I85.00 Esophageal varices without bleeding; G89.29 Other chronic pain; M54.9 Dorsalgia, unspecified; K85.90 Acute pancreatitis without necrosis or infection, unspecified; F32.A Depression, unspecified; F41.9 Anxiety disorder, unspecified; E03.9 Hypothyroidism, unspecified; K72.10 Chronic hepatic failure without coma; F10.90 Alcohol use, unspecified, uncomplicated; Y90.6 Blood alcohol level of 120-199 mg/100 ml; Z11.52 Encounter for screening for COVID-19
CPT/HCPCS: 0241U; 36415; 36430; 74174; 80048; 80053; 80320; 82140; 83605; 85014; 85018; 85025; 86850; 86870; 86900; 86901; 87797; 93005; 96361; 96365; 96367; 96375; 96376; 99284; 99291; G0378; P9016; J2270; J2405; J3010; Q9967

== ENCOUNTER 2024-02-13 11:42 | Emergency (ER) | payer OTHER, MEDICAID, SELFPAY ==
[2024-02-09 11:41] VITALS: BMI 21.4
[2024-02-13] VITALS (15 sets, daily range): BP systolic 102–126; BP diastolic 65–90; PULSE 83–105; RESP 12–37; TEMP 36.6–36.7; O2SAT 95–100; BMI 21.4
--- NOTE | 2024-02-13 11:51 | EKG_ITS ---
[place] [id number] [address] [place] [id number] Test Date: 2024-02-13 Pat Name: Kristen Castle Department: [facility] Room: Gender: Female Pattern Ruler: EPIFANIO : 1960 Requested By: Order Number: [id number] Reading MD: Iftikhar Monahan Measurements Intervals [place] Rate: 106 P: SC: QRS: -6 QRSD: 60 T: 28 QT: 332 QTc: 441 Interpretive Statements Accelerated Junctional rhythm with premature supraventricular complexes Low voltage QRS Inferior infarct , age undetermined Electronically Signed On 02-13-2024 18:34:17 PDT by Iftikhar Monahan
--- NOTE | 2024-02-13 12:11 | ED_ITS ---
HPI - Abdominal Pain <Robert Workman PA-C - Last Filed: 02/13/24 18:42> General Chief Complaint: Abdominal Pain Stated Complaint: PAIN Time Seen by Provider: 02/13/24 12:07 Source: patient Mode of arrival: Ambulatory History of Present Illness HPI narrative: This is a 64-year-old female presents emergency department due to moderate to severe abdominal pain in the upper abdomen over the last 2 days. She was concerned that she was developing ascites that she was had this in the past and this feels similar. She also reports vomiting 30-40 times. Denies any blood in the vomit. Denies any urinary symptoms. Please see record review below for complete medical history. She denies any bladder stool or abnormal bowel habits. She denies any URI symptoms. She states that she required paracentesis in the past but it was ?years ago?. Related Data Home Medications Medication Instructions Recorded Confirmed lactulose 10 gram/15 mL oral 15 ml PO BID PRN per patient 10/16/22 02/09/24 solution discretion rifaximin 550 mg tablet (Xifaxan) 550 mg PO BID 06/16/23 02/09/24 Previous Rx's Medication Instructions Recorded spironolactone 50 mg tablet 50 mg PO DAILY #90 tabs 06/30/23 furosemide 20 mg tablet 40 mg (2 x 20 mg) PO QAM #60 tabs 10/07/23 liothyronine 5 mcg tablet 10 mcg (2 x 5 mcg) PO DAILY #180 10/14/23 tabs nadolol 20 mg tablet 30 mg (1.5 x 20 mg) PO DAILY #135 10/14/23 tabs magnesium oxide 500 mg PO DAILY #30 tabs 10/22/23 pregabalin 75 mg capsule 75 mg PO TID #90 caps 10/22/23 levothyroxine 100 mcg capsule 100 mcg PO DAILY #90 caps 01/11/24 lorazepam 0.5 mg tablet 0.5 mg PO BEDTIME PRN sleep #45 01/28/24 tabs potassium chloride 20 mEq 20 meq PO BID #180 tabs 02/08/24 tablet,extended release(part/cryst) (Klor-Con M) vit,calcium no.40-iron 1 tab PO DAILY #90 tabs 02/08/24 fum 27 mg iron-folate no.1 1 mg tablet ondansetron 4 mg disintegrating 4 mg PO Q6H PRN nausea and 02/13/24 tablet vomiting #30 tabs oxycodone 5 mg capsule 5 mg PO TID PRN pain #20 caps 02/13/24 Allergies Allergy/AdvReac Type Severity Reaction Status Date / Time doxepin Allergy Intermediate ITCHING Verified 02/05/24 09:35 Review of Systems <Robert Workman PA-C - Last Filed: 02/13/24 18:42> Review of Systems Narrative: GENERAL: Denies chills, fatigue, malaise, fever, sweats. HEENT: Denies sinus pain, ear pain, sore throat, difficulty swallowing, dizziness. RESPIRATORY: Denies dyspnea, cough, wheezing, hemoptysis, sputum. CARDIOVASCULAR: Denies chest pain, palpitations, orthopnea, edema, GASTROINTESTINAL: Reports nausea, vomiting, abdominal pain nausea, vomiting, abdominal pain, denies diarrhea, constipation, melena. : Denies dysuria, frequency, incontinence, hematuria, urinary retention. MUSCULOSKELETAL: denies weakness, joint pain, or bony pain SKIN: Denies rash, skin lesions, or other NEUROLOGIC: Denies weakness, headache, numbness, change in speech, confusion, seizures, incoordination. PSYCHIATRIC: No concerning psychosocial issues. 12 point review of systems is negative except for those stated above Patient History <Robert Workman PA-C - Last Filed: 02/13/24 18:42> Medical History Multilevel spondylosis Back pain Alcoholic cirrhosis GERD (gastroesophageal reflux disease) Pancytopenia Thrombocytopenia Anemia due to blood loss, acute Bleeding internal hemorrhoids Pancreatic lesion (~04/18/23) Weakness of left upper extremity Stroke Anemia, macrocytic Anemia, blood loss Alcohol use disorder, severe, in early remission Hemorrhoids, internal Depression Shortness of breath Hypercalcemia Weight gain Ascites due to alcoholic cirrhosis SBO (small bowel obstruction) Pancreatitis Intermittent palpitations (04/2019) History of blood transfusion (10/2015) Coagulation disorder (2012) Hypothyroidism Hypertension History of heavy periods (2014) Ovarian cyst (2012) Painful menstrual periods (2012) Measles Mumps Chicken pox Eczema (2014) Psoriasis (2014) PTSD (post-traumatic stress disorder) (1999) Anxiety EV (esophageal varices) (10/2015) Portal hypertensive gastropathy (05/2015) Nonalcoholic fatty liver disease GI bleeding (2016) Cirrhosis (2013) Cardiac arrhythmia History of alcohol abuse (12/27/15) Surgical History H/O bilateral oophorectomy History of appendectomy History of inguinal hernia repair History of cholecystectomy History of esophagogastroduodenoscopy (EGD) (05/2015) Status post laparoscopic supracervical hysterectomy (08/25/16) Status post hysteroscopy (06/17/11) Status post hernia repair Status post appendectomy History of esophagogastroduodenoscopy (EGD) (01/2009) Status post colonoscopy (01/2009) Family History Grandfather Heart disease [place] (myocardial infarction) Grandmother Alcoholism Father No problems noted. Mother No problems noted. Grandfather Heart disease Grandmother Colon cancer Brother No problems noted. Social History household members: family Smoking Status: Never smoker alcohol intake: former Smoking Status: Never smoker alcohol intake frequency: 3 or more drinks per day Alcohol type: wine Substance Use Type: does not use Exam <Robert Workman PA-C - Last Filed: 02/13/24 18:42> Narrative Exam Narrative: GENERAL: Well-developed patient, in mild distress. HEAD: Atraumatic. Normocephalic. EYES: Pupils equal round and reactive. Extraocular motions intact. No scleral icterus. No injection or drainage. ENT: Nose without bleeding, purulent drainage. Throat without erythema, tonsillar hypertrophy or exudate. Airway patent. NECK: Trachea midline. Non tender EXTREMITIES: No edema or joint tenderness. NEURO: AOx3. SKIN: No rash or erythema of visible areas CARDIOVASCULAR: Regular rate and rhythm without murmurs, gallops, or rubs. RESPIRATORY: Clear to auscultation. Breath sounds equal bilaterally. No wheezes, rales, or rhonchi. GASTROINTESTINAL: Mild generalized tenderness to palpation, mildly distended BACK: Nontender without deformity or crepitance. No flank tenderness. Initial Vital Signs Initial Vital Signs: Vital Signs Temperature 97.8 F 02/13/24 11:44 Pulse Rate 105 H 02/13/24 11:44 Respiratory Rate 20 08/03/24 11:44 Blood Pressure 126/90 02/13/24 11:44 Pulse Oximetry 99 02/13/24 11:44 Oxygen Delivery Method Room Air 02/13/24 11:44 <Ruth Rodriguez DO - Last Filed: 02/15/24 07:05> Initial Vital Signs Initial Vital Signs: Vital Signs Temperature 97.8 F 02/13/24 11:44 Pulse Rate 105 H 02/13/24 11:44 Respiratory Rate 20 02/13/24 11:44 Blood Pressure 126/90 02/13/24 11:44 Pulse Oximetry 99 02/13/24 11:44 Oxygen Delivery Method Room Air 02/13/24 11:44 Course <Robert Workman PA-C - Last Filed: 02/13/24 18:42> Orders Ordered: Discontinued Medications Lorazepam (Lorazepam 2 Mg/Ml Inj) 0.5 mg IV NOW ONE Stop: 02/13/24 15:03 Last Admin: 02/13/24 15:28 Dose: 0.5 mg Documented By: PIPPA Morphine Sulfate (Morphine 4 Mg/Ml Inj) 4 mg IV NOW ONE Stop: 02/13/24 12:38 Last Admin: 02/13/24 12:50 Dose: 4 mg Documented By: WILMAR Morphine Sulfate (Morphine 2 Mg/Ml Inj) 2 mg IV NOW ONE Stop: 02/13/24 13:36 Last Admin: 02/13/24 13:39 Dose: 2 mg Documented By: WILMAR Ondansetron HCl (Ondansetron 4 Mg/2 Ml Inj) 4 mg IV NOW PRN PRN Reason: Nausea And Vomiting Last Admin: 02/13/24 12:50 Dose: 4 mg Documented By: WILMAR Ondansetron HCl (Ondansetron 4 Mg Odt) 4 mg PO NOW PRN PRN Reason: Nausea And Vomiting Vital Signs Vital signs: Vital Signs - 8 hr 02/13/24 11:44 02/13/24 12:34 02/13/24 13:00 Temperature 97.8 F Pulse Rate 105 H 92 H 97 H Respiratory Rate 20 22 25 H Blood Pressure 126/90 Pulse Oximetry 99 100 98 Oxygen Delivery Method Room Air 02/13/24 13:31 02/13/24 14:00 02/13/24 14:30 Temperature Pulse Rate 98 H 89 85 Respiratory Rate 34 H Blood Pressure Pulse Oximetry 100 98 98 Oxygen Delivery Method 02/13/24 15:00 02/13/24 15:21 02/13/24 15:21 Temperature Pulse Rate 84 85 Respiratory Rate 37 H 22 Blood Pressure 121/68 Pulse Oximetry 100 99 Oxygen Delivery Method 02/13/24 15:30 02/13/24 15:30 02/13/24 15:45 Temperature Pulse Rate 84 85 Respiratory Rate 21 Blood Pressure 109/71 Pulse Oximetry 100 98 Oxygen Delivery Method 02/13/24 15:45 02/13/24 15:50 02/13/24 16:00 Temperature Pulse Rate 84 Respiratory Rate 20 Blood Pressure 114/65 114/65 Pulse Oximetry 99 Oxygen Delivery Method 02/13/24 16:30 02/13/24 17:00 02/13/24 18:25 Temperature 98.1 F Pulse Rate 83 88 Respiratory Rate 12 17 Blood Pressure 104/66 102/65 108/76 Pulse Oximetry 95 98 Oxygen Delivery Method Room Air <Ruth Rodriguez DO - Last Filed: 02/15/24 07:05> Orders Ordered: Discontinued Medications Lorazepam (Lorazepam 2 Mg/Ml Inj) 0.5 mg IV NOW ONE Stop: 02/13/24 15:03 Last Admin: 02/13/24 15:28 Dose: 0.5 mg Documented By: PIPPA Morphine Sulfate (Morphine 4 Mg/Ml Inj) 4 mg IV NOW ONE Stop: 02/13/24 12:38 Last Admin: 02/13/24 12:50 Dose: 4 mg Documented By: WILMAR Morphine Sulfate (Morphine 2 Mg/Ml Inj) 2 mg IV NOW ONE Stop: 02/13/24 13:36 Last Admin: 02/13/24 13:39 Dose: 2 mg Documented By: WILMAR Ondansetron HCl (Ondansetron 4 Mg/2 Ml Inj) 4 mg IV NOW PRN PRN Reason: Nausea And Vomiting Last Admin: 02/13/24 12:50 Dose: 4 mg Documented By: WILMAR Ondansetron HCl (Ondansetron 4 Mg Odt) 4 mg PO NOW PRN PRN Reason: Nausea And Vomiting Vital Signs Vital signs: Vital Signs - 8 hr 02/13/24 11:44 02/13/24 12:34 02/13/24 13:00 Temperature 97.8 F Pulse Rate 105 H 92 H 97 H Respiratory Rate 20 22 25 H Blood Pressure 126/90 Pulse Oximetry 99 100 98 Oxygen Delivery Method Room Air 02/13/24 13:31 02/13/24 14:00 02/13/24 14:30 Temperature Pulse Rate 98 H 89 85 Respiratory Rate 34 H Blood Pressure Pulse Oximetry 100 98 98 Oxygen Delivery Method 02/13/24 15:00 02/13/24 15:21 02/13/24 15:21 Temperature Pulse Rate 84 85 Respiratory Rate 37 H 22 Blood Pressure 121/68 Pulse Oximetry 100 99 Oxygen Delivery Method 02/13/24 15:30 02/13/24 15:30 02/13/24 15:45 Temperature Pulse Rate 84 85 Respiratory Rate 21 Blood Pressure 109/71 Pulse Oximetry 100 98 Oxygen Delivery Method 02/13/24 15:45 02/13/24 15:50 02/13/24 16:00 Temperature Pulse Rate 84 Respiratory Rate 20 Blood Pressure 114/65 114/65 Pulse Oximetry 99 Oxygen Delivery Method 02/13/24 16:30 02/13/24 17:00 02/13/24 18:25 Temperature 98.1 F Pulse Rate 83 88 Respiratory Rate 12 17 Blood Pressure 104/66 102/65 108/76 Pulse Oximetry 95 98 Oxygen Delivery Method Room Air MDM - Abdominal Pain <Robert Workman PA-C - Last Filed: 02/13/24 18:42> Lab Data 02/13/24 12:10 02/13/24 12:10 Labs: Lab Results 02/13/24 02/13/24 02/13/24 Range/Units 12:10 12:30 12:40 WBC 6.0 (4.5-11.0) X10^3/uL RBC 3.59 L (4.0-5.2) X10^6/uL Hgb 10.0 L (12.0-16.0) g/dL Hct 30.2 L (36-46) % MCV 84.1 (80-100) fL MCH 27.8 (26-34) PG MCHC 33.1 (30-36) % RDW 17.1 H (11.6-14.8) % Plt Count 77 L (150-400) X10^3/uL Neut % (Auto) 74.1 (50-75) % Lymph % (Auto) 12.1 L (25-40) % [place] % (Auto) 12.2 (3-14) % Eos % (Auto) 1.1 L (2-4) % Baso % (Auto) 0.5 (0-2) % Neut # (Auto) 4400 (0512-1990) /uL Lymph # (Auto) 700 L (0770-2985) /uL [place] # (Auto) 700 (0-900) /uL Eos # (Auto) 100 (0-450) /uL Baso # (Auto) 0 (0-100) /uL PT 18.4 H (9.4-12.5) SECONDS INR 1.6 H (0.9-1.3) APTT 34 (25.1-36.5) SECONDS Sodium 135 L (137-145) mmol/L Potassium 3.6 (3.4-5.1) mmol/L Chloride 108 H (98-107) mmol/L Carbon Dioxide 19 L (22-32) mmol/L BUN 20 H (7-17) mg/dL Creatinine 1.18 H (0.52-1.04) mg/dL Estimated GFR 52 L (>60) mL/min BUN/Creatinine Ratio 16.9 (6-22) Glucose 103 (80-110) mg/dL Calcium 8.8 (8.4-10.2) mg/dL Total Bilirubin 2.9 H (0.2-1.3) mg/dL AST 81 H (14-36) IU/L ALT 43 H (<35) IU/L Alkaline Phosphatase 101 (38-126) U/L Total Protein 6.7 (6.3-8.2) g/dL Albumin 3.0 L (3.5-5.0) g/dL Globulin 3.7 (1.7-4.1) g/dL Albumin/Globulin Ratio 0.8 L (1.0-2.8) Lipase 394 H (23-300) U/L TSH 0.569 (0.47-4.68) uIU/mL Urine RBC None seen (0-5/HPF) Urine WBC 5-10/hpf H (0-5/HPF) Ur Squamous Epith Cells 1-5 /hpf (0-5/HPF) Ur Transition Epith Cell 0-1/hpf (0-5/HPF) Amorphous Sediment 2+ Urine Bacteria Many (>30) H (None) Hyaline Casts 0-1/lpf (None) Urine Mucus 1+ H (Negative) Ur Culture Indicated? Specimen cultured Vol Urine Centrifuged 10ml (spun) Ethyl Alcohol < 10 ( - 10) mg/dL Point of care testing: Urine Dip Bedside Urine Glucose Negative Bedside Urine Bilirubin - Negative Bedside Urine Ketone +/- 5 Urine Specific [place] 1.030 Bedside Urine Occult Blood - Negative Bedside Urine pH 6.0 Bedside Urine Protein + 30 Bedside Urine Urobilinogen - Negative Bedside Urine Nitrite - Negative Bedside Urine Leukocytes +/- 15 Esterase Imaging Data MRCP : Radiologist's Impression: [address] [address] Magnetic Resonance Report Signed Patient: Kristen Castle MR#: [id number] : 1960 Acct:[id number] Age/Sex: 64 / F Date of Service: 02/13/24 Loc: ED Accession Number: [id number] Procedure: MR abdomen wo/w con Ordering Provider: Robert Workman PA-C PROCEDURE: MR ABDOMEN WO/W CON INDICATIONS: Check for possible obstructing pancreatic stone TECHNIQUE: Coronal HASTE, axial 2D FLASH in- and fhp-zc-suity; axial breath-hold T2 FSE with fat saturation from the hepatic dome to the iliac crests. Oblique coronal thin- slice and radial thick slab HASTE through the biliary system. Dynamic axial VIBE during administration of contrast. Post-contrast coronal VIBE or 2D FLASH with fat saturation from the hepatic dome to the iliac crests. Optional diffusion weighted imaging and ADC may be performed. COMPARISON: [facility], MR, MR AB PANCREATIC/MRCP PROTOCOL, 09/18/2022, 15:45. [facility], CT, CT ANGIO ABD/PEL GI BLEED, 02/09/2024, 5:15. [facility], CT, CT ABDOMEN PELVIS W CON, 02/13/2024, 13:18. [facility], MR, MR ABDOMEN WO/W CON, 03/21/2022, 14:22. FINDINGS: Image quality: This examination is limited by involuntary motion artifact. Gallbladder: Removed. Biliary ducts: The common bile duct is not dilated at 5 mm. Pancreas: Abnormal pancreas is again seen, with multiple cysts seen within the head of the pancreas. The majority of the pancreas is atrophic, with the pancreatic duct measuring up to 1 cm at the level of the pancreatic head. On these images, no filling defects are seen to suggest a pancreatic ductal stone. No significant peripancreatic inflammatory changes are seen. OTHER: Lung bases: Unremarkable. Liver: A cirrhotic liver is seen. Faintly seen enhancement again seen within segment 7 of the liver, as on series 15, image 27. Spleen: The spleen is enlarged, measuring 15.8 cm. Adrenal Glands: No adrenal nodules. Kidneys and Ureters: No hydronephrosis. No solid mass. No complex renal cystic lesion which requires follow up. Stomach and Bowel: Normal colonic caliber, without significant wall thickening. Peritoneum: There is a ebdv-od-oicvqgry volume ascites seen, particularly adjacent to the liver. No free air. Ventral Wall: No hernia. Abdominal Nodes: No retroperitoneal or mesenteric adenopathy by size criteria. Vessels: Aorta and inferior vena cava are normal in size. Bones: No aggressive osseous abnormality. IMPRESSION: Pancreatic ductal dilatation is again seen, yet without a pancreatic ductal stone seen on these images. Multiple cystic lesions are seen involving the head of the pancreas, which are similar to the prior studies. The pancreas is largely atrophic. There is mild to moderate ascites, particularly adjacent to the liver. There is a cirrhotic liver, with a faint focus of enhancement within segment 7, which is regarded to be a probably benign lesion (LR 3). Splenomegaly again seen. Additional findings: Status post cholecystectomy, without biliary dilatation. Dictated by: Rufino Palmer M.D. on 02/13/2024 at 16:25 Approved by: Rufino Palmer M.D. on 02/13/2024 at 16:35 CT scan - abdomen/pelvis: Radiologist's Impression: [place] [address] CT Scan Report Signed Patient: Kristen Castle MR#: [id number] : 1960 Acct:[id number] Age/Sex: 64 / F Date of Service: 02/13/24 Loc: ED Accession Number: [id number] Procedure: CT abdomen pelvis w con Ordering Provider: Robert Workman PA-C PROCEDURE: CT ABDOMEN PELVIS W CON INDICATIONS: Upper abdominal pain TECHNIQUE: After the administration of intravenous contrast, axial sections acquired from the lung bases to the pubic symphysis. Coronal and sagittal reformats were performed. For radiation dose reduction, the following was used: automated exposure control, adjustment of mA and/or kV according to patient size. COMPARISON: [facility], CT, CT ANGIO ABD/PEL GI BLEED, 02/09/2024, 5:15. [facility], CT, CT ABDOMEN PELVIS W CON, 12/31/2023, 19:25. FINDINGS: Image quality: Diagnostic. Lower Chest: Lung bases are clear. Wall thickening of the distal esophagus. ABDOMEN: Liver: Nodular contour to the liver, consistent with cirrhosis. Portal veins are patent. Gallbladder: Surgically absent. Biliary ducts: No biliary dilation. Pancreas: Redemonstration of obstructing 1.8 centimeter stone within the distal pancreatic duct. Significant cystic change within the pancreatic head. Remainder of the pancreas is atrophic. Spleen: Enlarged. Adrenal Glands: No adrenal nodules. Kidneys and Ureters: No hydronephrosis. No solid mass. No complex renal cystic lesion which requires follow up. Stomach and Bowel: Diffuse gastric wall thickening. Majority of the colon is decompressed with wall thickening versus decompression. Differential includes portal colopathy versus colitis. Peritoneum: Moderate volume ascites is increased from prior. No free air. Ventral Wall: No significant ventral hernia. Abdominal Nodes: No retroperitoneal or mesenteric adenopathy by size criteria. Vessels: Aorta and inferior vena cava are normal in size. Atherosclerotic vascular calcifications. Abdominal varices are noted. PELVIS: Pelvic Organs: Unremarkable. Bladder: Decompressed with a Wood catheter in place. Pelvic Nodes: No enlarged lymph nodes. Miscellaneous: No inguinal hernias are seen. Bones: No aggressive osseous abnormality. Decreased osseous mineralization. Degenerative changes of the spine. IMPRESSION: 1. Cirrhosis with increased, now moderate volume ascites. Additional sequela of portal hypertension including abdominal varices and splenomegaly. 2. Wall thickening of the distal esophagus and diffuse wall thickening of the stomach. Findings may represent gastritis or be secondary to portal hypertension. 3. Diffuse wall thickening versus underdistention of the colon. Differential includes colitis versus portal colopathy. 4. Redemonstration of possibly obstructing stone within the distal pancreatic duct with significant cystic changes of the pancreatic head. Stable in appearance compared to prior. Dictated by: Chris Renner M.D. on 02/13/2024 at 14:14 Approved by: Chris Renner M.D. on 02/13/2024 at 14:22 Chest x-ray: Radiologist's Impression: [address] [address] XRay Report Signed Patient: Kristen Castle MR#: [id number] : 1960 Acct:[id number] Age/Sex: 64 / F Date of Service: 02/13/24 Loc: ED Accession Number: [id number] Procedure: XR chest 1V Ordering Provider: Robert Workman PA-C PROCEDURE: XR CHEST 1V INDICATIONS: GI symptoms, r/o free air TECHNIQUE: One view of the chest was acquired. COMPARISON: [facility], CR, XR CHEST 1V, 01/08/2024, 14:59. [facility], CR, XR CHEST 1V, 08/07/2023, 23:06. FINDINGS: Surgical changes and devices: None. Lungs and pleura: Lungs are clear. No pleural effusions or pneumothorax. Mediastinum: Mediastinal contours appear normal. Heart size is normal. Bones and chest wall: No suspicious bony lesions. Overlying soft tissues appear unremarkable. IMPRESSION: No free air is seen. No acute cardiopulmonary abnormality is seen. Dictated by: Chris Renner M.D. on 02/13/2024 at 13:08 Approved by: Chris Renner M.D. on 02/13/2024 at 13:09 MDM Narrative Medical decision making narrative: ED course: This is a 64-year-old female with extensive medical history presents emergency department due to epigastric abdominal pain as well as episodes of vomiting over the last [address] abdomen and pelvis was initially ordered which showed no new findings of the it did suggest possible obstructing pancreatic stone. MRCP was ordered to further evaluate this which was negative for stone but did show the multiple pancreatic lesions. This was discussed with the on-call GI at [facility], who suspected her symptoms were due to likely your chronic pancreatitis. Also lab work similar to prior. Hemoglobin is improved as she was recently hospitalized for GI bleed. 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 CT scan did show ascites although patient was recommended follow up with the primary care provider regarding this. CC: Epigastric pain, nausea vomiting Complicating co-morbidities: As below Data collected from: Previous notes Medical records reviewed: Patient was last seen here in the emergency department 5 days ago. History of alcohol use disorder, cirrhosis, hypothyroidism, GI bleed secondary to internal hemorrhoids. Brought in per for bright red blood per rectum. She underwent banding of internal hemorrhoids approximately a month ago for GI bleed which required transfusion of blood products. EKG showed 84 beats per minute, no evidence of STEMI. Patient was hemodynamically stable, thiamine and folic acid given, initial hemoglobin was 9.1. CTA of the abdomen and pelvis showed diffuse circumferential wall thickening. Had a large bloody bowel movement with clots, 1 g of TXA ordered. Dr. Macedo, general surgery was consulted and patient was admitted. During hospitalization surgeon did not feel that she required intervention or endoscopy. She did stop bleeding without specific intervention but did get 2 units of blood while in the hospital. There was no further bleeding while hospitalized. History of thrombocytopenia and end-stage liver disease which increases her propensity for bleeding. History of alcoholic cirrhosis, pancytopenia, thrombocytopenia, pancreatic lesion, stroke, internal hemorrhoids, ascites due to alcoholic cirrhosis, pancreatitis, heart palpitations, coagulation disorder, hypothyroidism, hypertension, esophageal varices. Surgical history includes bilateral oophorectomy, appendectomy, inguinal hernia repair, cholecystectomy,. Differential considered, but not limited to: Chronic pancreatitis, acute pancreatitis, pancreatic lesion, gastritis Exam documented above, pertinent findings include: Generalized tenderness to palpation Lab Test results independently reviewed as above. Pertinent findings: Similar results of prior, hemoglobin improved Imaging studies independently reviewed: As above Scores Used: None MIPS Elements: None Consultations: None Treatments: Pain medication and nausea medications Re-evaluations: Symptoms improved after pain and nausea medications Discussion: Discussed plan with the patient was comfortable with the plan Diagnosis: Chronic pancreatitis Disposition: see below, along with detailed discharge instructions that have been reviewed with patient as well as indications for ED re-evaluation and additional outpatient follow up <Ruth Rodriguez, DO - Last Filed: 02/15/24 07:05> Lab Data Labs: Lab Results 02/13/24 02/13/24 02/13/24 Range/Units 12:10 12:30 12:40 WBC 6.0 (4.5-11.0) X10^3/uL RBC 3.59 L (4.0-5.2) X10^6/uL Hgb 10.0 L (12.0-16.0) g/dL Hct 30.2 L (36-46) % MCV 84.1 (80-100) fL MCH 27.8 (26-34) PG MCHC 33.1 (30-36) % RDW 17.1 H (11.6-14.8) % Plt Count 77 L (150-400) X10^3/uL Neut % (Auto) 74.1 (50-75) % Lymph % (Auto) 12.1 L (25-40) % [place] % (Auto) 12.2 (3-14) % Eos % (Auto) 1.1 L (2-4) % Baso % (Auto) 0.5 (0-2) % Neut # (Auto) 4400 (4213-2918) /uL Lymph # (Auto) 700 L (9606-3305) /uL [place] # (Auto) 700 (0-900) /uL Eos # (Auto) 100 (0-450) /uL Baso # (Auto) 0 (0-100) /uL PT 18.4 H (9.4-12.5) SECONDS INR 1.6 H (0.9-1.3) APTT 34 (25.1-36.5) SECONDS Sodium 135 L (137-145) mmol/L Potassium 3.6 (3.4-5.1) mmol/L Chloride 108 H (98-107) mmol/L Carbon Dioxide 19 L (22-32) mmol/L BUN 20 H (7-17) mg/dL Creatinine 1.18 H (0.52-1.04) mg/dL Estimated GFR 52 L (>60) mL/min BUN/Creatinine Ratio 16.9 (6-22) Glucose 103 (80-110) mg/dL Calcium 8.8 (8.4-10.2) mg/dL Total Bilirubin 2.9 H (0.2-1.3) mg/dL AST 81 H (14-36) IU/L ALT 43 H (<35) IU/L Alkaline Phosphatase 101 (38-126) U/L Total Protein 6.7 (6.3-8.2) g/dL Albumin 3.0 L (3.5-5.0) g/dL Globulin 3.7 (1.7-4.1) g/dL Albumin/Globulin Ratio 0.8 L (1.0-2.8) Lipase 394 H (23-300) U/L TSH 0.569 (0.47-4.68) uIU/mL Urine RBC None seen (0-5/HPF) Urine WBC 5-10/hpf H (0-5/HPF) Ur Squamous Epith Cells 1-5 /hpf (0-5/HPF) Ur Transition Epith Cell 0-1/hpf (0-5/HPF) Amorphous Sediment 2+ Urine Bacteria Many (>30) H (None) Hyaline Casts 0-1/lpf (None) Urine Mucus 1+ H (Negative) Ur Culture Indicated? Specimen cultured Vol Urine Centrifuged 10ml (spun) Ethyl Alcohol < 10 ( - 10) mg/dL Point of care testing: Urine Dip Bedside Urine Glucose Negative Bedside Urine Bilirubin - Negative Bedside Urine Ketone +/- 5 Urine Specific [place] 1.030 Bedside Urine Occult Blood - Negative Bedside Urine pH 6.0 Bedside Urine Protein + 30 Bedside Urine Urobilinogen - Negative Bedside Urine Nitrite - Negative Bedside Urine Leukocytes +/- 15 Esterase ECG Data Attestation: I personally reviewed and interpreted this ECG as follows: Prior ECG tracings: available for review Interpretation: Trazodone rhythm versus sinus rhythm rate of 106 QRS is 60 QTC 441. Patient has a little bit of what appears to be likely motion artifact. Patient has prior from 02/09/[address] segments. Discharge Plan Departure Patient Disposition: Home Clinical Impression: Chronic pancreatitis Instructions: DI for Pancreatitis Activity Restrictions/Additional Instructions: Thank you for coming to the [facility] Emergency Department today. I discussed your results with our on-call timber spotter who suspect your symptoms are due to your chronic pancreatitis. Please follow up with your established timber spotter for long-term care. The niece the pain and nausea medications as needed to help get hold you over until you are able to see them. Your lab work and imaging findings showed no new findings did not from 1 you were discharged from the hospital a week ago. Please return to the emergency department if you develop any significant new or worsening pain, or any other concerning signs or symptoms. I hope you feel better soon. Please follow up with your primary care provider within a week if your symptoms continue. If you do not have a primary care provider please contact the [facility] Resource line at [phone]. They will ask some questions about your medical history and help you get set up with a provider in the community. Prescriptions: New ondansetron 4 mg tablet,disintegrating 4 mg PO Q6H PRN (Reason: nausea and vomiting) Qty: 30 0RF oxycodone 5 mg capsule 5 mg PO TID PRN (Reason: pain) Qty: 20 0RF No Action spironolactone 50 mg tablet 50 mg PO DAILY Qty: 90 3RF furosemide 20 mg tablet 40 mg PO QAM Qty: 60 3RF Rx Instructions: Take 1 extra tab of 20mg (total 40mg) daily liothyronine 5 mcg tablet 10 mcg PO DAILY Qty: 180 3RF nadolol 20 mg tablet 30 mg PO DAILY Qty: 135 3RF Rx Instructions: takes at about 1500 Qday levothyroxine 100 mcg capsule 100 mcg PO DAILY Qty: 90 3RF potassium chloride [Klor-Con M20] 20 mEq tablet,ER particles/crystals 20 meq PO BID Qty: 180 1RF ,calc.[id number] 1 27-1 mg tablet 1 tab PO DAILY Qty: 90 3RF Rx Instructions: Take 1 tab daily for anemia lactulose 10 gram/15 mL solution 15 ml PO BID PRN (Reason: per patient discretion) Patient Comments: Take 30mL daily if pt does not have 3 BMs per day Rx Instructions: patient holds medication with diarrhea Xifaxan 550 mg tablet 550 mg PO BID magnesium oxide 500 mg magnesium tablet 500 mg PO DAILY Qty: 30 3RF pregabalin 75 mg capsule 75 mg PO TID Qty: 90 3RF lorazepam 0.5 mg tablet 0.5 mg PO BEDTIME PRN (Reason: sleep) Qty: 45 3RF Referrals: Divina Lopes ARNP [Primary Care Provider] - Stand Alone Forms: Patient Portal/API
[2024-02-13 12:19] LABS: Add Manual Diff / Slide Review NO; Basophils Absolute Auto 0 /uL (0-100); Basophils Percent Auto 0.5 % (0-2); Eosinophils Absolute Auto 100 /uL (0-450); Eosinophils Percent Auto 1.1 % (2-4); Hematocrit 30.2 % (36-46); Lymphocytes Absolute Auto 700 /uL (1100-4500); Lymphocytes Percent Auto 12.1 % (25-40); Mean Corpuscular HGB Conc 33.1 % (30-36); Mean Corpuscular Hemoglobin 27.8 PG (26-34); Mean Corpuscular Volume 84.1 fL (80-100); Monocytes Absolute Auto 700 /uL (0-900); Monocytes Percent Auto 12.2 % (3-14); Neutrophils Absolute Auto 4400 /uL (1500-7000); Neutrophils Percent Auto 74.1 % (50-75); Platelet Count 77 X10^3/uL (150-400); Red Blood Cell Count 3.59 X10^6/uL (4.0-5.2); Red Cell Distribution Width 17.1 % (11.6-14.8)
--- NOTE | 2024-02-13 12:27 | DI.RAD.S_ITS ---
PROCEDURE: XR CHEST 1V INDICATIONS: GI symptoms, r/o free air TECHNIQUE: One view of the chest was acquired. COMPARISON: [facility], CR, XR CHEST 1V, 01/08/2024, 14:59. [facility], CR, XR CHEST 1V, 08/07/2023, 23:06. FINDINGS: Surgical changes and devices: None. Lungs and pleura: Lungs are clear. No pleural effusions or pneumothorax. Mediastinum: Mediastinal contours appear normal. Heart size is normal. Bones and chest wall: No suspicious bony lesions. Overlying soft tissues appear unremarkable. IMPRESSION: No free air is seen. No acute cardiopulmonary abnormality is seen. Dictated by: Chris Renner M.D. on 02/13/2024 at 13:08 Approved by: Chris Renner M.D. on 02/13/2024 at 13:09
[2024-02-13 12:45] LABS: Alanine Aminotransferase 43 IU/L (<35); Albumin Globulin Ratio 0.8 (1.0-2.8); Alkaline Phosphatase 101 U/L (38-126); Aspartate Aminotransferase 81 IU/L (14-36); BUN Creatinine Ratio 16.9 (6-22); Bilirubin Total 2.9 mg/dL (0.2-1.3); Blood Urea Nitrogen 20 mg/dL (7-17); Calcium 8.8 mg/dL (8.4-10.2); Carbon Dioxide 19 mmol/L (22-32); Chloride 108 mmol/L (98-107); Estimated Glomerular Filt Rate 52 mL/min (>60); Globulin 3.7 g/dL (1.7-4.1); Glucose 103 mg/dL (80-110); HEMOLYSIS 18 (0-50); Lipase 394 U/L (23-300); Potassium 3.6 mmol/L (3.4-5.1); Sodium 135 mmol/L (137-145); Total Protein 6.7 g/dL (6.3-8.2)
[2024-02-13 12:46] LABS: Urine Volume 10mL (spun)
[2024-02-13] MEDS: MORPHINE 4 MG/ML INJ IV (12:50)
[2024-02-13] MEDS: ONDANSETRON 4 MG/2 ML INJ IV (12:50)
[2024-02-13 12:52] LABS: Amorphous Sediment Urine 2+; Bacteria Urine Many (>30); RBC Urine None Seen (0-5/HPF); Squamous Epithelial Cell Urine 1-5 /HPF (0-5/HPF); Transitional Epi Cells Urine 0-1/HPF (0-5/HPF); WBC Urine 5-10/HPF (0-5/HPF)
[2024-02-13 12:53] LABS: Culture Indicated Urine Specimen Cultured; Hyaline Casts Urine 0-1/LPF; Mucus Urine 1+ (Negative)
--- NOTE | 2024-02-13 12:58 | DI.CT.S_ITS ---
PROCEDURE: CT ABDOMEN PELVIS W CON INDICATIONS: Upper abdominal pain TECHNIQUE: After the administration of intravenous contrast, axial sections acquired from the lung bases to the pubic symphysis. Coronal and sagittal reformats were performed. For radiation dose reduction, the following was used: automated exposure control, adjustment of mA and/or kV according to patient size. COMPARISON: [facility], CT, CT ANGIO ABD/PEL GI BLEED, 02/09/2024, 5:15. [facility], CT, CT ABDOMEN PELVIS W CON, 12/31/2023, 19:25. FINDINGS: Image quality: Diagnostic. Lower Chest: Lung bases are clear. Wall thickening of the distal esophagus. ABDOMEN: Liver: Nodular contour to the liver, consistent with cirrhosis. Portal veins are patent. Gallbladder: Surgically absent. Biliary ducts: No biliary dilation. Pancreas: Redemonstration of obstructing 1.8 centimeter stone within the distal pancreatic duct. Significant cystic change within the pancreatic head. Remainder of the pancreas is atrophic. Spleen: Enlarged. Adrenal Glands: No adrenal nodules. Kidneys and Ureters: No hydronephrosis. No solid mass. No complex renal cystic lesion which requires follow up. Stomach and Bowel: Diffuse gastric wall thickening. Majority of the colon is decompressed with wall thickening versus decompression. Differential includes portal colopathy versus colitis. Peritoneum: Moderate volume ascites is increased from prior. No free air. Ventral Wall: No significant ventral hernia. Abdominal Nodes: No retroperitoneal or mesenteric adenopathy by size criteria. Vessels: Aorta and inferior vena cava are normal in size. Atherosclerotic vascular calcifications. Abdominal varices are noted. PELVIS: Pelvic Organs: Unremarkable. Bladder: Decompressed with a Wood catheter in place. Pelvic Nodes: No enlarged lymph nodes. Miscellaneous: No inguinal hernias are seen. Bones: No aggressive osseous abnormality. Decreased osseous mineralization. Degenerative changes of the spine. IMPRESSION: 1. Cirrhosis with increased, now moderate volume ascites. Additional sequela of portal hypertension including abdominal varices and splenomegaly. 2. Wall thickening of the distal esophagus and diffuse wall thickening of the stomach. Findings may represent gastritis or be secondary to portal hypertension. 3. Diffuse wall thickening versus underdistention of the colon. Differential includes colitis versus portal colopathy. 4. Redemonstration of possibly obstructing stone within the distal pancreatic duct with significant cystic changes of the pancreatic head. Stable in appearance compared to prior. Dictated by: Chris Renner M.D. on 02/13/2024 at 14:14 Approved by: Chris Renner M.D. on 02/13/2024 at 14:22
[2024-02-13 12:59] LABS: INR 1.6 (0.9-1.3); Prothrombin Time 18.4 SECONDS (9.4-12.5)
[2024-02-13 13:02] LABS: PTT Partial Thromboplastin Tim 34 SECONDS (25.1-36.5)
[2024-02-13 13:34] LABS: Thyroid Stimulating Hormone 0.569 uIU/mL (0.47-4.68)
[2024-02-13] MEDS: MORPHINE 2 MG/ML INJ IV (13:39)
--- NOTE | 2024-02-13 15:02 | DI.MRI.S_ITS ---
PROCEDURE: MR ABDOMEN WO/W CON INDICATIONS: Check for possible obstructing pancreatic stone TECHNIQUE: Coronal HASTE, axial 2D FLASH in- and [id number]; axial breath-hold T2 FSE with fat saturation from the hepatic dome to the iliac crests. Oblique coronal thin-slice and radial thick slab HASTE through the biliary system. Dynamic axial VIBE during administration of contrast. Post-contrast coronal VIBE or 2D FLASH with fat saturation from the hepatic dome to the iliac crests. Optional diffusion weighted imaging and ADC may be performed. COMPARISON: [facility], MR, MR AB PANCREATIC/MRCP PROTOCOL, 09/18/2022, 15:45. [facility], CT, CT ANGIO ABD/PEL GI BLEED, 02/09/2024, 5:15. [facility], CT, CT ABDOMEN PELVIS W CON, 02/13/2024, 13:18. [facility], MR, MR ABDOMEN WO/W CON, 03/21/2022, 14:22. FINDINGS: Image quality: This examination is limited by involuntary motion artifact. Gallbladder: Removed. Biliary ducts: The common bile duct is not dilated at 5 mm. Pancreas: Abnormal pancreas is again seen, with multiple cysts seen within the head of the pancreas. The majority of the pancreas is atrophic, with the pancreatic duct measuring up to 1 cm at the level of the pancreatic head. On these images, no filling defects are seen to suggest a pancreatic ductal stone. No significant peripancreatic inflammatory changes are seen. OTHER: Lung bases: Unremarkable. Liver: A cirrhotic liver is seen. Faintly seen enhancement again seen within segment 7 of the liver, as on series 15, image 27. Spleen: The spleen is enlarged, measuring 15.8 cm. Adrenal Glands: No adrenal nodules. Kidneys and Ureters: No hydronephrosis. No solid mass. No complex renal cystic lesion which requires follow up. Stomach and Bowel: Normal colonic caliber, without significant wall thickening. Peritoneum: There is a [id number] volume ascites seen, particularly adjacent to the liver. No free air. Ventral Wall: No hernia. Abdominal Nodes: No retroperitoneal or mesenteric adenopathy by size criteria. Vessels: Aorta and inferior vena cava are normal in size. Bones: No aggressive osseous abnormality. IMPRESSION: Pancreatic ductal dilatation is again seen, yet without a pancreatic ductal stone seen on these images. Multiple cystic lesions are seen involving the head of the pancreas, which are similar to the prior studies. The pancreas is largely atrophic. There is mild to moderate ascites, particularly adjacent to the liver. There is a cirrhotic liver, with a faint focus of enhancement within segment 7, which is regarded to be a probably benign lesion (LR 3). Splenomegaly again seen. Additional findings: Status post cholecystectomy, without biliary dilatation. Dictated by: Rufino Palmer M.D. on 02/13/2024 at 16:25 Approved by: Rufino Palmer M.D. on 02/13/2024 at 16:35
[2024-02-13] MEDS: LORazepam 2 MG/ML INJ 0.5 MG IV (15:28)
[2024-02-13 15:29] LABS: Ethanol (ETOH) < 10 mg/dL
== END 2024-02-13 18:31 | disposition home or self-care (01) ==
PROVIDERS: Emergency Medicine; Emergency Provider Physician Assistant Medical; Family Provider Nurse Practitioner; PCP Nurse Practitioner
DX: K86.1 Other chronic pancreatitis (principal); R10.13 Epigastric pain
CPT/HCPCS: 36415; 51798; 71045; 74177; 74183; 80053; 80320; 81003; 81015; 83690; 84443; 85025; 85610; 85730; 87086; 93005; 96374; 96375; 96376; 99284; 99285; J2060; J2270; J2405; Q9967

== ENCOUNTER → 2024-02-15 13:14 | Outpatient (CLI) | payer OTHER, MEDICAID, SELFPAY ==
[2024-02-09 11:41] VITALS: BMI 21.4
--- NOTE | 2024-02-15 13:16 | DI.US.S_ITS ---
PROCEDURE: US PARACENTESIS INDICATIONS: SOB with ascites, send to rule out SBO TECHNIQUE: The indications, alternatives, benefits, risks, and complications of the procedure were explained to the patient. Written informed consent was obtained and placed in the chart. The abdomen and pelvis were examined sonographically, and an appropriate site was chosen for paracentesis. The skin was prepared and draped in the usual sterile fashion, and 1% lidocaine was infiltrated from the skin down through the peritoneal surface. A 19-gauge catheter-covered needle was then introduced into the peritoneal space, the catheter was advanced and the needle was withdrawn, and thereafter peritoneal fluid was withdrawn. The catheter was then removed and a dressing was applied. The fluid was discarded if the clinician did not order diagnostic testing of the fluid. COMPARISON: None. FINDINGS: Access site: Left lower quadrant Needle: One-Step centesis catheter with introducer needle. Fluid volume and description: Approximately 80 cc of yellow clear fluid Fluid sent for diagnostic testing: As ordered by requesting provider Medications: 1% lidocaine for local anaesthesia. Complications: None. IMPRESSION: Successful ultrasound-guided paracentesis. Dictated by: Gal Cevallos M.D. on 02/16/2024 at 9:31 Approved by: Gal Cevallos M.D. on 02/16/2024 at 9:39
[2024-02-15 14:25] LABS: Body Fluid Tot Nucleated Cells 4438 /uL
[2024-02-15 14:37] LABS: Body Fluid Appearance SLIGHTLY CLOUDY; Body Fluid Clotted? NO CLOTS PRESENT; Body Fluid Color YELLOW
[2024-02-15 14:47] LABS: Body Fluid Red Blood Cells < 1000 /uL
[2024-02-15 14:59] LABS: Lymphocytes Body Fluid 3 %; MESO/MACRO/MONO Body Fluid 37 %; Neutrophils Body Fluid 60 %
[2024-02-16 14:12] LABS: Labcorp Glucose, Body Fluid 113 mg/dL (.); Labcorp Total Prot, Body Fluid 0.5 g/dL (.)
== END ==
PROVIDERS: Family Provider Nurse Practitioner; PCP Nurse Practitioner; Referring Provider Nurse Practitioner; Visit Provider Nurse Practitioner
DX: K72.90 Hepatic failure, unspecified without coma (principal); R06.02 Shortness of breath; R18.8 Other ascites
CPT/HCPCS: 49083; 82945; 84157; 87070; 87075; 87205; 89051

== ENCOUNTER 2024-02-19 17:39 | Emergency (ER) | payer OTHER, MEDICAID, SELFPAY ==
[2024-02-09 11:41] VITALS: BMI 21.4
[2024-02-19 17:51] VITALS: BP 128/73; PULSE 88; RESP 20; TEMP 36.4; O2SAT 98; BMI 22.3
[2024-02-19] MEDS: ONDANSETRON 4 MG/2 ML INJ IV (18:36)
[2024-02-19] MEDS: SODIUM CHLORIDE 0.9% 1,000 ML 1000 ML IV (18:36)
[2024-02-19] MEDS: MORPHINE 4 MG/ML INJ IV (18:37)
[2024-02-19 19:00] VITALS: BP 121/69; PULSE 80; RESP 25; O2SAT 98
[2024-02-19 19:09] LABS: Add Manual Diff / Slide Review NO; Basophils Absolute Auto 0 /uL (0-100); Basophils Percent Auto 0.5 % (0-2); Eosinophils Absolute Auto 0 /uL (0-450); Eosinophils Percent Auto 0.1 % (2-4); Hematocrit 27.5 % (36-46); Lymphocytes Absolute Auto 700 /uL (1100-4500); Lymphocytes Percent Auto 14.9 % (25-40); Mean Corpuscular HGB Conc 32.6 % (30-36); Mean Corpuscular Hemoglobin 26.9 PG (26-34); Mean Corpuscular Volume 82.7 fL (80-100); Monocytes Absolute Auto 400 /uL (0-900); Monocytes Percent Auto 8.3 % (3-14); Neutrophils Absolute Auto 3700 /uL (1500-7000); Neutrophils Percent Auto 76.2 % (50-75); Platelet Count 120 X10^3/uL (150-400); Red Blood Cell Count 3.32 X10^6/uL (4.0-5.2); Red Cell Distribution Width 16.7 % (11.6-14.8); White Blood Cell Count 4.9 X10^3/uL (4.5-11.0)
--- NOTE | 2024-02-19 19:13 | ED.ABDPAIN ---
HPI - Abdominal Pain General Chief Complaint: Abdominal Pain Stated Complaint: acute pain, pancreatitis Time Seen by Provider: 02/19/24 18:06 Source: patient Mode of arrival: Ambulatory History of Present Illness HPI narrative: 64-year-old female with history of alcohol abuse, alcoholic cirrhosis, alcoholic pancreatitis, prior ascites, prior GI bleeding, last drink of alcohol 3 weeks ago, followed by a gastroenterology specialist Dr. Nicholas in [place] with next scheduled follow up 03/04/2024, seen most recently here [facility] with abdominal pain 02/13/2024, that visit had CT abdomen and pelvis and then MR abdomen and pelvis, discharged home. Now having 2-3 days duration increased generalized abdominal discomfort, nausea with nonbloody emesis, no black or red stools recent days. She denies injury or trauma. She has not feel particular confused, is taking her lactulose medication. She has not feel like she is particularly swollen, taking her oral Aldactone and Lasix medications. She denies cough, shortness of breath, chest pain. She denies painful urination or frequency of urination. Related Data Home Medications Medication Instructions Recorded Confirmed lactulose 10 gram/15 mL oral 15 ml PO BID PRN per patient 10/16/22 02/15/24 solution discretion rifaximin 550 mg tablet (Xifaxan) 550 mg PO BID 06/16/23 02/15/24 Previous Rx's Medication Instructions Recorded spironolactone 50 mg tablet 50 mg PO DAILY #90 tabs 06/30/23 furosemide 20 mg tablet 40 mg (2 x 20 mg) PO QAM #60 tabs 10/07/23 liothyronine 5 mcg tablet 10 mcg (2 x 5 mcg) PO DAILY #180 10/14/23 tabs nadolol 20 mg tablet 30 mg (1.5 x 20 mg) PO DAILY #135 10/14/23 tabs magnesium oxide 500 mg PO DAILY #30 tabs 10/22/23 pregabalin 75 mg capsule 75 mg PO TID #90 caps 10/22/23 levothyroxine 100 mcg capsule 100 mcg PO DAILY #90 caps 01/11/24 lorazepam 0.5 mg tablet 0.5 mg PO BEDTIME PRN sleep #45 01/28/24 tabs potassium chloride 20 mEq 20 meq PO BID #180 tabs 02/08/24 tablet,extended release(part/cryst) (Klor-Morris M) vit,calcium no.40-iron 1 tab PO DAILY #90 tabs 02/08/24 fum 27 mg iron-folate no.1 1 mg tablet ondansetron 4 mg disintegrating 4 mg PO Q6H PRN nausea and 02/13/24 tablet vomiting #30 tabs oxycodone 5 mg capsule 5 - 10 mg (1 - 2 x 5 mg) PO Q6H 02/19/24 PRN pain #40 caps sucralfate 1 gram tablet (Carafate) 1 g PO BID #60 tabs 02/19/24 Allergies Allergy/AdvReac Type Severity Reaction Status Date / Time doxepin Allergy Intermediate ITCHING Verified 02/15/24 09:38 Review of Systems Review of Systems Narrative: see HPI Patient History Medical History Multilevel spondylosis Back pain Alcoholic cirrhosis GERD (gastroesophageal reflux disease) Pancytopenia Thrombocytopenia Anemia due to blood loss, acute Bleeding internal hemorrhoids Pancreatic lesion (~04/18/23) Weakness of left upper extremity Stroke Anemia, macrocytic Anemia, blood loss Alcohol use disorder, severe, in early remission Hemorrhoids, internal Depression Shortness of breath Hypercalcemia Weight gain Ascites due to alcoholic cirrhosis SBO (small bowel obstruction) Pancreatitis Intermittent palpitations (04/2019) History of blood transfusion (10/2015) Coagulation disorder (2012) Hypothyroidism Hypertension History of heavy periods (2014) Ovarian cyst (2012) Painful menstrual periods (2012) Measles Mumps Chicken pox Eczema (2014) Psoriasis (2014) PTSD (post-traumatic stress disorder) (1999) Anxiety EV (esophageal varices) (10/2015) Portal hypertensive gastropathy (05/2015) Nonalcoholic fatty liver disease GI bleeding (2015) Cirrhosis (2012) Cardiac arrhythmia History of alcohol abuse (12/27/15) Surgical History H/O bilateral oophorectomy History of appendectomy History of inguinal hernia repair History of cholecystectomy History of esophagogastroduodenoscopy (EGD) (05/2015) Status post laparoscopic supracervical hysterectomy (08/25/16) Status post hysteroscopy (06/17/11) Status post hernia repair Status post appendectomy History of esophagogastroduodenoscopy (EGD) (01/2009) Status post colonoscopy (01/2009) Family History Grandfather Heart disease MD (myocardial infarction) Grandmother Alcoholism Father No problems noted. Mother No problems noted. Grandfather Heart disease Grandmother Colon cancer Brother No problems noted. Social History household members: family Smoking Status: Never smoker alcohol intake: former Smoking Status: Never smoker alcohol intake frequency: 3 or more drinks per day Alcohol type: wine Substance Use Type: does not use Exam Narrative Exam Narrative: GENERAL: Well-developed patient, in mild distress. HEAD: Atraumatic. Normocephalic. EYES: Pupils equal round and reactive. Extraocular motions intact. No scleral icterus. No injection or drainage. ENT: Nose without bleeding, purulent drainage. Throat without erythema, tonsillar hypertrophy or exudate. Airway patent. NECK: Trachea midline. Non tender CARDIOVASCULAR: Regular rate and rhythm without murmurs, gallops, or rubs. RESPIRATORY: Clear to auscultation. Breath sounds equal bilaterally. No wheezes, rales, or rhonchi. GASTROINTESTINAL: Abdomen soft, some fluid wave likely present, no significant distention, abdomen not tense, no tenderness. EXTREMITIES: No edema or joint tenderness. BACK: Nontender without deformity or crepitance. No flank tenderness. NEURO: AOx3. Nonfocal neuro exam, no asterixis SKIN: No rash or erythema of visible areas Initial Vital Signs Initial Vital Signs: Vital Signs Temperature 97.6 F 02/19/24 17:51 Pulse Rate 88 02/19/24 17:51 Respiratory Rate 20 02/19/24 17:51 Blood Pressure 128/73 02/19/24 17:51 Pulse Oximetry 98 02/19/24 17:51 Oxygen Delivery Method Room Air 02/19/24 17:51 Course Orders Ordered: ED Orders 02/19/24 18:56 Ammonia (NH3) Stat Complete Blood Count AUTO DIFF Stat Comprehensive Metabolic Panel Stat Lipase Stat 02/19/24 20:05 CT abdomen pelvis w con Stat Discontinued Medications Diphenhydramine HCl (Diphenhydramine 50 Mg/Ml Vial) 25 mg IV NOW ONE Stop: 02/19/24 19:15 Last Admin: 02/19/24 19:40 Dose: 25 mg Documented By: Famotidine (Famotidine 20 Mg/2 Ml Vial) 20 mg IV NOW AGNIESZKA Famotidine (Famotidine 20 Mg/2 Ml Vial) 20 mg IV NOW ONE Stop: 02/19/24 20:16 Last Admin: 02/19/24 20:15 Dose: 20 mg Documented By: Sodium Chloride (Normal Saline 0.9%) 1,000 mls @ 1,000 mls/hr IV BOLUS ONE Stop: 02/19/24 19:24 Last Infusion: 02/19/24 19:35 Dose: Infused Documented By: Admin: 02/19/24 18:36 Dose: 1,000 mls/hr Documented By: JODY Metoclopramide HCl (Metoclopramide 10 Mg/2 Ml Inj) 10 mg IV NOW ONE Stop: 02/19/24 19:15 Last Admin: 02/19/24 19:40 Dose: 10 mg Documented By: Morphine Sulfate (Morphine 4 Mg/Ml Inj) 4 mg IV NOW ONE Stop: 02/19/24 18:27 Last Admin: 02/19/24 18:37 Dose: 4 mg Documented By: JODY Ondansetron HCl (Ondansetron 4 Mg/2 Ml Inj) 4 mg IV NOW ONE Stop: 02/19/24 18:26 Last Admin: 02/19/24 18:36 Dose: 4 mg Documented By: JODY Vital Signs Vital signs: Vital Signs - 8 hr 02/19/24 17:51 02/19/24 19:00 02/19/24 20:00 Temperature 97.6 F Pulse Rate 88 80 82 Respiratory Rate 20 25 H 25 H Blood Pressure 128/73 121/69 115/64 Pulse Oximetry 98 98 96 Oxygen Delivery Method Room Air Room Air Room Air 02/19/24 21:00 02/19/24 22:13 Temperature Pulse Rate 74 70 Respiratory Rate 13 13 Blood Pressure 102/59 L 94/52 L Pulse Oximetry 95 95 Oxygen Delivery Method Room Air Room Air MDM - Abdominal Pain Medical Records Attestation: I reviewed the patient's medical records. Medical records narrative: Most recent ED visit [facility] 02/13/2024 reviewed Lab Data Attestation: I reviewed the patient's lab results. Lab results narrative: Hemoglobin 9.0 noted (9.1-10 range since 02/10/2024 most recent comparison draws), liver functions and lipase normal, white blood cell count 4900, electrolytes unremarkable, normal BUN/creatinine/glucose, ammonia not elevated 02/19/24 18:56 02/19/24 18:56 Labs: Lab Results 02/19/24 Range/Units 18:56 WBC 4.9 (4.5-11.0) X10^3/uL RBC 3.32 L (4.0-5.2) X10^6/uL Hgb 9.0 L (12.0-16.0) g/dL Hct 27.5 L (36-46) % MCV 82.7 (80-100) fL MCH 26.9 (26-34) PG MCHC 32.6 (30-36) % RDW 16.7 H (11.6-14.8) % Plt Count 120 L (150-400) X10^3/uL Neut % (Auto) 76.2 H (50-75) % Lymph % (Auto) 14.9 L (25-40) % Sunflower % (Auto) 8.3 (3-14) % Eos % (Auto) 0.1 L (2-4) % Baso % (Auto) 0.5 (0-2) % Neut # (Auto) 3700 (5677-0612) /uL Lymph # (Auto) 700 L (2416-8763) /uL Sunflower # (Auto) 400 (0-900) /uL Eos # (Auto) 0 (0-450) /uL Baso # (Auto) 0 (0-100) /uL Sodium 140 (137-145) mmol/L Potassium 3.6 (3.4-5.1) mmol/L Chloride 108 H (98-107) mmol/L Carbon Dioxide 24 (22-32) mmol/L BUN 8 (7-17) mg/dL Creatinine 0.61 (0.52-1.04) mg/dL Estimated GFR > 60 (>60) mL/min BUN/Creatinine Ratio 13.1 (6-22) Glucose 104 (80-110) mg/dL Calcium 8.5 (8.4-10.2) mg/dL Total Bilirubin 1.5 H (0.2-1.3) mg/dL AST 68 H (14-36) IU/L ALT 32 (<35) IU/L Alkaline Phosphatase 78 (38-126) U/L Ammonia < 9 L (9-30) umol/L Total Protein 6.3 (6.3-8.2) g/dL Albumin 2.8 L (3.5-5.0) g/dL Globulin 3.5 (1.7-4.1) g/dL Albumin/Globulin Ratio 0.8 L (1.0-2.8) Lipase 394 H (23-300) U/L [facility] Narrative Medical decision making narrative: 64-year-old female with alcoholic liver disease, cirrhosis, pancreatitis, encephalopathy, ascites, last drink of alcohol 3 weeks ago. She has abdominal discomfort and nonbloody emesis. Afebrile, SIRS screen negative. No grossly obvious scleral icterus, some likely ascites on abdominal exam but not tense, no tenderness on exam, clear speech, cooperative, no tremuolousness. Labs pending. Still has nausea despite home use of ondansetron ODT, will give IV Zofran. She would like pain medication, IV morphine. IV pepcid. Still having pain and nausea, we will give IV Dilaudid and IV Reglan/Benadryl. Labs still pending. Records review from most recent ED visit 02/13/2024, patient had abdominal pain at that time, CT scan was done showing some prominence of the pancreatic duct and suspected possible stone, MR abdomen and pelvis was therefore done, no pancreatic stone confirmed. White blood cell count normal, hemoglobin 9 (compared to 9.110 range most recent blood draw since 02/10/2024), CMP unremarkable including LFTs, lipase. Pain controlled after IV morphine then Dilaudid. No longer feels nauseated. CT abdomen and pelvis study. Impression: ?Abnormal thickening of the distal esophagus, stem getting duodenal. Findings could be due to partial enteropathy and/or other esophagitis/gastritis. Cirrhosis. Splenomegaly. Vitals of portal hypertension. Moderate to large volume ascites. No hemoperitoneum. No small bowel obstruction. Cystic change of the head of the pancreas is similar. This is felt to be due to dilatation of the pancreatic duct as there appears to be large stone at the ampulla Vater measuring 1.3 cm.? References made to comparison CT abdomen and pelvis study on 02/13/2024. See radiology report. Consider abdominal pain due to esophagitis/gastritis, taking PPI medication, add Carafate for now. We discussed the concern about pancreatic mass, no change from CT study done 02/13/2024, when there was follow up MRI during that same visit showing no pancreatic stone. We discussed staying for repeat MRI abdomen and pelvis imaging when available tomorrow, she would like to not do this at this time. She would like to try the Carafate medication, agrees to continue off alcohol with last known drink 3 weeks ago, and will follow up with her GI specialist and El as scheduled in 2 weeks. She feels better would like to go home, requested discharge, home with family. Follow up as above, return precautions discussed Critical Care Time Critical Care Time Critical Care Time: Yes Total Critical Care Time: 31 Attestation: The high probability of a clinically significant, sudden or life threatening deterioration of the [gastrointestinal, abdominopelvic] system(s) required my full and direct attention, intervention and personal management. The aggregate critical care time was [31] minutes. This time is in addition to time spent performing reported procedures but includes the following: [x] Data Review and interpretation [x] Patient assessment and monitoring of vital signs [x] Documentation [x] Medication orders and management Discharge Plan Departure Patient Disposition: Home Clinical Impression: Abdominal pain, Esophagitis, Gastritis, Dilated pancreatic duct, History of alcohol abuse, History of ascites, History of cirrhosis Activity Restrictions/Additional Instructions: Abdominal pain, history of alcohol abuse with complications of alcoholic liver disease cirrhosis and ascites fluid in the abdominal cavity. Most recent CT scan imaging before today was 8 3 24 at which time there was a concern for pancreatic ductal dilatation and possible stone in that area, MRI of the abdomen was done did not confirm any pancreatic ductal stone. Ongoing abdominal discomfort, no fever today, no significant tenderness or distention on exam, though it does seem that you probably have fluid again in your belly, though your belly is not tense with fluid at this time. CT scan abdomen and pelvis today inflammatory changes to the esophagus and upper stomach, no perforation or obstruction or abscess changes, again there seemed to be a concern about a possible pancreatic stone and pancreatic ductal dilatation with no significant change by CT scanning appearance compared to recent study 02/13/2024. Follow up recent MRI did not show confirmation of the stone, and on CT scan this seems to look the same, we discussed staying for repeat MRI study tomorrow, not available at this hour, declined for now. We discussed placing a needle into your belly to draw fluid for testing today, no seems less likely that you have infection in that space, could consider, you declined this procedure for now. You will be following up with your gastroenterology specialists in [place] in 2 weeks. Continue to avoid alcohol use. Continue taking your omeprazole antacid medication, consider addition of Carafate acid binder medications for now, with care not to use it the same time as your other medications so that it will not interfere with absorption. Continue taking your other chronic medications as planned. Follow up with your paleontological helper as scheduled. Return to this/nearest emergency department for any change worsening symptoms or any concerns prior Prescriptions: New sucralfate [Carafate] 1 gram tablet 1 g PO BID Qty: 60 0RF No Action spironolactone 50 mg tablet 50 mg PO DAILY Qty: 90 3RF furosemide 20 mg tablet 40 mg PO QAM Qty: 60 3RF Rx Instructions: Take 1 extra tab of 20mg (total 40mg) daily liothyronine 5 mcg tablet 10 mcg PO DAILY Qty: 180 3RF nadolol 20 mg tablet 30 mg PO DAILY Qty: 135 3RF Rx Instructions: takes at about 1500 Qday levothyroxine 100 mcg capsule 100 mcg PO DAILY Qty: 90 3RF potassium chloride [Klor-Con M20] 20 mEq tablet,ER particles/crystals 20 meq PO BID Qty: 180 1RF ,calc.[id number] 1 27-1 mg tablet 1 tab PO DAILY Qty: 90 3RF Rx Instructions: Take 1 tab daily for anemia lactulose 10 gram/15 mL solution 15 ml PO BID PRN (Reason: per patient discretion) Patient Comments: Take 30mL daily if pt does not have 3 BMs per day Rx Instructions: patient holds medication with diarrhea Xifaxan 550 mg tablet 550 mg PO BID magnesium oxide 500 mg magnesium tablet 500 mg PO DAILY Qty: 30 3RF pregabalin 75 mg capsule 75 mg PO TID Qty: 90 3RF lorazepam 0.5 mg tablet 0.5 mg PO BEDTIME PRN (Reason: sleep) Qty: 45 3RF oxycodone 5 mg capsule 5 - 10 mg PO Q6H PRN (Reason: pain) Qty: 40 0RF ondansetron 4 mg tablet,disintegrating 4 mg PO Q6H PRN (Reason: nausea and vomiting) Qty: 30 0RF Referrals: Divina Lopes ARNP [Primary Care Provider] - Stand Alone Forms: Patient Portal/API
[2024-02-19 19:22] LABS: Ammonia (NH3) < 9 umol/L (9-30)
[2024-02-19 19:24] LABS: Alanine Aminotransferase 32 IU/L (<35); Albumin 2.8 g/dL (3.5-5.0); Albumin Globulin Ratio 0.8 (1.0-2.8); Alkaline Phosphatase 78 U/L (38-126); Aspartate Aminotransferase 68 IU/L (14-36); BUN Creatinine Ratio 13.1 (6-22); Bilirubin Total 1.5 mg/dL (0.2-1.3); Blood Urea Nitrogen 8 mg/dL (7-17); Calcium 8.5 mg/dL (8.4-10.2); Carbon Dioxide 24 mmol/L (22-32); Chloride 108 mmol/L (98-107); Estimated Glomerular Filt Rate > 60 mL/min (>60); Globulin 3.5 g/dL (1.7-4.1); Glucose 104 mg/dL (80-110); HEMOLYSIS < 15 (0-50); Lipase 394 U/L (23-300); Potassium 3.6 mmol/L (3.4-5.1); Sodium 140 mmol/L (137-145); Total Protein 6.3 g/dL (6.3-8.2)
[2024-02-19] MEDS: METOCLOPRAMIDE 10 MG/2 ML INJ IV (19:40)
[2024-02-19] MEDS: diphenhydrAMINE 50 MG/ML VIAL 25 MG IV (19:40)
[2024-02-19 20:00] VITALS: BP 115/64; PULSE 82; RESP 25; O2SAT 96
--- NOTE | 2024-02-19 20:05 | DI.CT.S_ITS ---
PROCEDURE: CT ABDOMEN PELVIS W CON INDICATIONS: abd pain, hx pancreatitis/ALD/ascites/cirrhosis TECHNIQUE: After the administration of intravenous contrast, axial sections acquired from the lung bases to the pubic symphysis. Coronal and sagittal reformats were performed. For radiation dose reduction, the following was used: automated exposure control, adjustment of mA and/or kV according to patient size. COMPARISON: , CT, CT ABDOMEN PELVIS W CON, 02/13/2024, 13:18. FINDINGS: Image quality: Diagnostic. Lower Chest: Thickening of the distal esophagus. Paraesophageal varices. No pleural effusion. ABDOMEN: Liver: Cirrhotic liver morphology. A few hypodense foci appear similar. This exam is not tailored for the detection of HCC. Gallbladder: Absent. Biliary ducts: No biliary dilation. Pancreas: Stone at the ampulla of Vater measuring 1.3 cm, (2/37), unchanged. Additional stones in the pancreatic head. Cystic replacement at the pancreatic head. The pancreatic duct is suspected to be dilated to the level of the pancreatic neck. No peripancreatic fluid collection about the body and tail. Spleen: Measures 13.9 cm. Mildly enlarged. Adrenal Glands: No adrenal nodules. Kidneys and Ureters: No hydronephrosis. No solid mass. No complex renal cystic lesion which requires follow up. Stomach and Bowel: Thickening of the distal esophagus. Stomach appears thickened. Thickening of the duodenum. No small bowel obstruction. Colonic wall thickening is decreased. Colonic diverticuli. The appendix is not seen. Peritoneum: Moderate to large volume of ascites. No pneumoperitoneum. Ventral Wall: No significant ventral hernia. Abdominal Nodes: No retroperitoneal or mesenteric adenopathy by size criteria. Vessels: Aorta and inferior vena cava are normal in size. No filling defect in the portal vein or SMV. Upper abdominal varices. PELVIS: Pelvic Organs: Uterus is absent or atrophic. Bladder: No stone. Pelvic Nodes: No enlarged lymph nodes. Miscellaneous: No inguinal hernias are seen. Bones: No aggressive osseous abnormality. IMPRESSION: 1. Abnormal thickening of the distal esophagus, stomach, and duodenum. Findings could be due to a portal enteropathy or other esophagitis/gastritis/enteritis. 2. Cirrhosis. Splenomegaly. Findings of portal hypertension. Moderate to large volume of ascites. 3. No pneumoperitoneum. No small bowel obstruction. 4. Cystic change at the head of the pancreas is similar. This is felt to be due to dilatation of the pancreatic duct as there appears to be a large stone at the ampulla Vater measuring 1.3 cm. Dictated by: Andreas Hackett M.D. on 02/19/2024 at 21:14 Approved by: Andreas Hackett M.D. on 02/19/2024 at 21:24
[2024-02-19] MEDS: FAMOTIDINE 20 MG/2 ML VIAL IV (20:15)
[2024-02-19 21:00] VITALS: BP 102/59; PULSE 74; RESP 13; O2SAT 95
[2024-02-19 22:13] VITALS: BP 94/52; PULSE 70; RESP 13; O2SAT 95
--- NOTE | 2024-02-19 22:39 | PC.NURSE ---
Called tiana Castle at [phone]. On his way in.
== END 2024-02-19 22:51 | disposition home or self-care (01) ==
PROVIDERS: Emergency Provider Emergency Medicine; Family Provider Nurse Practitioner; PCP Nurse Practitioner
DX: R10.84 Generalized abdominal pain (principal); K20.90 Esophagitis, unspecified without bleeding; K29.70 Gastritis, unspecified, without bleeding; K86.89 Other specified diseases of pancreas; F10.11 Alcohol abuse, in remission; Z87.19 Personal history of other diseases of the digestive system; K70.30 Alcoholic cirrhosis of liver without ascites; K86.0 Alcohol-induced chronic pancreatitis; R11.2 Nausea with vomiting, unspecified
CPT/HCPCS: 36415; 74177; 80053; 82140; 83690; 85025; 96361; 96374; 96375; 99284; J1200; J2270; J2405; J2765; Q9967

== ENCOUNTER 2024-02-23 17:08 | Emergency (ER) | payer OTHER, MEDICAID, SELFPAY ==
[2024-02-09 11:41] VITALS: BMI 21.4
[2024-02-23 17:15] VITALS: BP 112/76; PULSE 80; O2SAT 100
[2024-02-23 17:19] VITALS: BP 112/76; PULSE 79; RESP 16; TEMP 37.1; O2SAT 100; BMI 21.2
[2024-02-23 17:30] VITALS: PULSE 78; O2SAT 98
--- NOTE | 2024-02-23 17:59 | ED.RECABL ---
HPI - Recheck/Abnormal Lab/Rx General Chief Complaint: Recheck/Abnormal Lab/Rx Stated Complaint: dr sent over for paracentesis Time Seen by Provider: 02/23/24 17:59 Source: patient, RN notes reviewed and old records reviewed Mode of arrival: Ambulatory Limitations: no limitations History of Present Illness HPI narrative: 64-year-old female with history of alcohol abuse, alcoholic cirrhosis, alcoholic pancreatitis prior ascites prior GI bleeds following with Gastroenterology with Dr. Nicholas in [place]. Patient presents today with request for paracentesis. She states she has had reaccumulation of fluid she did have paracentesis in the last 2 weeks. She states it was quite helpful. She describes her belly feeling tight and short of breath and uncomfortable when she bends over. No fevers, no abdominal pain, no chest pain or shortness of breath, no vomiting in the last week. Patient states no black or bloody stools. No difficulty with urination. No confusion or altered mental status. Patient's primary care tried to set her up with outpatient paracentesis but all providers had COVID and were unavailable. Patient states it has been 3 years prior to her last paracentesis besides her most recent. She states she has been taking her medications regularly. Has not allergy to doxepin. No tobacco, denies current alcohol use, no recreational drugs. Related Data Home Medications Medication Instructions Recorded Confirmed lactulose 10 gram/15 mL oral 15 ml PO BID PRN per patient 10/16/22 02/15/24 solution discretion rifaximin 550 mg tablet (Xifaxan) 550 mg PO BID 06/16/23 02/15/24 Previous Rx's Medication Instructions Recorded spironolactone 50 mg tablet 50 mg PO DAILY #90 tabs 06/30/23 furosemide 20 mg tablet 40 mg (2 x 20 mg) PO QAM #60 tabs 10/07/23 liothyronine 5 mcg tablet 10 mcg (2 x 5 mcg) PO DAILY #180 10/14/23 tabs nadolol 20 mg tablet 30 mg (1.5 x 20 mg) PO DAILY #135 10/14/23 tabs magnesium oxide 500 mg PO DAILY #30 tabs 10/22/23 pregabalin 75 mg capsule 75 mg PO TID #90 caps 10/22/23 levothyroxine 100 mcg capsule 100 mcg PO DAILY #90 caps 01/11/24 lorazepam 0.5 mg tablet 0.5 mg PO BEDTIME PRN sleep #45 01/28/24 tabs potassium chloride 20 mEq 20 meq PO BID #180 tabs 02/08/24 tablet,extended release(part/cryst) (Klor-Con M) vit,calcium no.40-iron 1 tab PO DAILY #90 tabs 02/08/24 fum 27 mg iron-folate no.1 1 mg tablet ondansetron 4 mg disintegrating 4 mg PO Q6H PRN nausea and 02/13/24 tablet vomiting #30 tabs oxycodone 5 mg capsule 5 - 10 mg (1 - 2 x 5 mg) PO Q6H 02/19/24 PRN pain #40 caps sucralfate 1 gram tablet (Carafate) 1 g PO BID #60 tabs 02/19/24 Allergies Allergy/AdvReac Type Severity Reaction Status Date / Time doxepin Allergy Intermediate ITCHING Verified 02/15/24 09:38 Review of Systems Review of Systems ROS Unobtainable: All systems reviewed & are unremarkable except as noted in HPI and below Patient History Medical History Multilevel spondylosis Back pain Alcoholic cirrhosis GERD (gastroesophageal reflux disease) Pancytopenia Thrombocytopenia Anemia due to blood loss, acute Bleeding internal hemorrhoids Pancreatic lesion (~04/18/23) Weakness of left upper extremity Stroke Anemia, macrocytic Anemia, blood loss Alcohol use disorder, severe, in early remission Hemorrhoids, internal Depression Shortness of breath Hypercalcemia Weight gain Ascites due to alcoholic cirrhosis SBO (small bowel obstruction) Pancreatitis Intermittent palpitations (04/2019) History of blood transfusion (10/2015) Coagulation disorder (2012) Hypothyroidism Hypertension History of heavy periods (2014) Ovarian cyst (2012) Painful menstrual periods (2012) Measles Mumps Chicken pox Eczema (2014) Psoriasis (2014) PTSD (post-traumatic stress disorder) (1999) Anxiety EV (esophageal varices) (10/2015) Portal hypertensive gastropathy (05/2015) Nonalcoholic fatty liver disease GI bleeding (2015) Cirrhosis (2012) Cardiac arrhythmia History of alcohol abuse (12/27/15) Surgical History H/O bilateral oophorectomy History of appendectomy History of inguinal hernia repair History of cholecystectomy History of esophagogastroduodenoscopy (EGD) (05/2015) Status post laparoscopic supracervical hysterectomy (08/25/16) Status post hysteroscopy (06/17/11) Status post hernia repair Status post appendectomy History of esophagogastroduodenoscopy (EGD) (01/2009) Status post colonoscopy (01/2009) Family History Grandfather Heart disease [place] (myocardial infarction) Grandmother Alcoholism Father No problems noted. Mother No problems noted. Grandfather Heart disease Grandmother Colon cancer Brother No problems noted. Social History household members: family Smoking Status: Never smoker alcohol intake: former Smoking Status: Never smoker alcohol intake frequency: 3 or more drinks per day Alcohol type: wine Substance Use Type: does not use Exam Narrative Exam Narrative: GENERAL: Alert and oriented x three, thin but well-appearing female in mild distress. HEENT: Head normocephalic, atraumatic, EOMI, pupils reactive, face symmetric, moist mucous membranes NECK: Supple, full range of motion CARDIOVASCULAR: Regular rate and rhythm without murmurs, rubs or gallops. RESPIRATORY: Breath sounds equal bilaterally, no wheezes rales or rhonchi. No tachypnea or accessory muscle use. ABDOMEN: Soft, nontender. Distended. Normoactive bowel sounds all 4 quadrants. No guarding or rebound, rigidity, no mass : No CVA tenderness EXTREMITIES: Normal range of motion, no clubbing or edema. Neurovascularly intact NEUROLOGICAL: Cranial nerves II through XII grossly intact. Moving all extremities SKIN: Warm, dry, no petechiae, no rashes or lesions. Initial Vital Signs Initial Vital Signs: Vital Signs Pulse Rate 80 02/23/24 17:15 Blood Pressure 112/76 02/23/24 17:15 Pulse Oximetry 100 02/23/24 17:15 Course Orders Ordered: ED Orders 02/23/24 18:09 CBC Auto Diff [Complete Blood Count AUTO DIFF] Stat CMP [Comprehensive Metabolic Panel] Stat PTT Partial Thromboplastin Donis Stat Prothrombin Time INR Stat 02/23/24 18:56 US paracentesis Stat Vital Signs Vital signs: Vital Signs - 8 hr 02/23/24 17:15 02/23/24 17:15 02/23/24 17:19 Temperature 98.7 F Pulse Rate 80 79 Respiratory Rate 16 Blood Pressure 112/76 112/76 Pulse Oximetry 100 100 Oxygen Delivery Method Room Air 02/23/24 17:30 02/23/24 18:00 02/23/24 18:00 Temperature Pulse Rate 78 75 Respiratory Rate 16 Blood Pressure 95/58 L Pulse Oximetry 98 97 Oxygen Delivery Method Room Air 02/23/24 18:30 02/23/24 18:30 Temperature Pulse Rate 71 Respiratory Rate 18 Blood Pressure 95/60 Pulse Oximetry 96 Oxygen Delivery Method Room Air MDM - Recheck/Abnormal Lab/Rx Lab Data 02/23/24 18:09 02/23/24 18:09 Labs: Lab Results 02/23/24 Range/Units 18:09 WBC 4.8 (4.5-11.0) X10^3/uL RBC 3.39 L (4.0-5.2) X10^6/uL Hgb 9.1 L (12.0-16.0) g/dL Hct 27.8 L (36-46) % MCV 82.1 (80-100) fL MCH 26.9 (26-34) PG MCHC 32.8 (30-36) % RDW 16.4 H (11.6-14.8) % Plt Count 117 L (150-400) X10^3/uL Neut % (Auto) 67.1 (50-75) % Lymph % (Auto) 17.4 L (25-40) % [place] % (Auto) 12.8 (3-14) % Eos % (Auto) 2.1 (2-4) % Baso % (Auto) 0.6 (0-2) % Neut # (Auto) 3200 (2233-3818) /uL Lymph # (Auto) 800 L (8960-0635) /uL [place] # (Auto) 600 (0-900) /uL Eos # (Auto) 100 (0-450) /uL Baso # (Auto) 0 (0-100) /uL PT 17.9 H (9.4-12.5) SECONDS INR 1.6 H (0.9-1.3) APTT 37 H (25.1-36.5) SECONDS Sodium 135 L (137-145) mmol/L Potassium 3.8 (3.4-5.1) mmol/L Chloride 106 (98-107) mmol/L Carbon Dioxide 26 (22-32) mmol/L BUN 11 (7-17) mg/dL Creatinine 0.63 (0.52-1.04) mg/dL Estimated GFR > 60 (>60) mL/min BUN/Creatinine Ratio 17.5 (6-22) Glucose 109 (80-110) mg/dL Calcium 8.7 (8.4-10.2) mg/dL Total Bilirubin 1.4 H (0.2-1.3) mg/dL AST 76 H (14-36) IU/L ALT 32 (<35) IU/L Alkaline Phosphatase 68 (38-126) U/L Total Protein 6.8 (6.3-8.2) g/dL Albumin 2.8 L (3.5-5.0) g/dL Globulin 4.0 (1.7-4.1) g/dL Albumin/Globulin Ratio 0.7 L (1.0-2.8) Urine Dip Bedside Urine Glucose Negative Bedside Urine Bilirubin - Negative Bedside Urine Ketone - Negative Urine Specific [place] 1.015 Bedside Urine Occult Blood - Negative Bedside Urine pH 7.5 Bedside Urine Protein - Negative Bedside Urine Urobilinogen - Negative Bedside Urine Nitrite - Negative Bedside Urine Leukocytes - Negative Esterase MDM Narrative Medical decision making narrative: 64-year-old female sent by primary care for paracentesis as she has had a little bit more shortness of breath and increased abdominal bloating. Patient does have a known history of ascites. Patient's labs reviewed hemoglobin is 9.1 consistent with priors since the 09 of February, white count of 4.8 platelets of 117 which are improved from patient's priors. INR is 1.6, sodium is 135 potassium 3.8 chloride 106 with a CO2 of 26 BUN of 11 creatinine 0.83 bilirubin is 1.4 they AST of 76 ALT of 32 consistent with patient priors. Patient does appear have quite a bit more ascites than the last time I saw her which was in the last several months although her stomach is not hugely distended it is she may not have enough fluid present when I evaluate her CT from most recent visit on 02/18. She would likely feel improved afterwards and after discussion of risks versus benefits patient would like to elect to proceed for therapeutic paracentesis. Ultrasound evaluated patient felt there was not a safe pocket to drain we will hold off for parents centesis. Patient is agreeable does not feel safe to perform the procedure. Discussed patient can follow up outpatient or return to the ED if worsening issues. Discharge Plan Departure Patient Disposition: Home Clinical Impression: Ascites Activity Restrictions/Additional Instructions: There was not enough fluid on your ultrasound today to perform paracentesis, if it continues to accumulate there maybe you can follow up with outpatient or return to the ED as needed. Continue your home medications as prescribed I hope you continue to feel improved overall. Can return at any time if you have fevers new or worsening abdominal back or flank pain, chest pain or shortness of breath persistent vomiting, black or bloody stools or other new or concerning changes. Prescriptions: No Action spironolactone 50 mg tablet 50 mg PO DAILY Qty: 90 3RF furosemide 20 mg tablet 40 mg PO QAM Qty: 60 3RF Rx Instructions: Take 1 extra tab of 20mg (total 40mg) daily liothyronine 5 mcg tablet 10 mcg PO DAILY Qty: 180 3RF nadolol 20 mg tablet 30 mg PO DAILY Qty: 135 3RF Rx Instructions: takes at about 1500 Qday levothyroxine 100 mcg capsule 100 mcg PO DAILY Qty: 90 3RF potassium chloride [Klor-Con M20] 20 mEq tablet,ER particles/crystals 20 meq PO BID Qty: 180 1RF ,calc.26-[id number]-uwwjqn 1 27-1 mg tablet 1 tab PO DAILY Qty: 90 3RF Rx Instructions: Take 1 tab daily for anemia lactulose 10 gram/15 mL solution 15 ml PO BID PRN (Reason: per patient discretion) Patient Comments: Take 30mL daily if pt does not have 3 BMs per day Rx Instructions: patient holds medication with diarrhea Xifaxan 550 mg tablet 550 mg PO BID magnesium oxide 500 mg magnesium tablet 500 mg PO DAILY Qty: 30 3RF pregabalin 75 mg capsule 75 mg PO TID Qty: 90 3RF lorazepam 0.5 mg tablet 0.5 mg PO BEDTIME PRN (Reason: sleep) Qty: 45 3RF oxycodone 5 mg capsule 5 - 10 mg PO Q6H PRN (Reason: pain) Qty: 40 0RF ondansetron 4 mg tablet,disintegrating 4 mg PO Q6H PRN (Reason: nausea and vomiting) Qty: 30 0RF sucralfate [Carafate] 1 gram tablet 1 g PO BID Qty: 60 0RF Referrals: Divina Lopes ARNP [Primary Care Provider] - Stand Alone Forms: Patient Portal/API
[2024-02-23 18:00] VITALS: BP 95/58; PULSE 75; RESP 16; O2SAT 97
[2024-02-23 18:28] LABS: INR 1.6 (0.9-1.3); Prothrombin Time 17.9 SECONDS (9.4-12.5)
[2024-02-23 18:30] VITALS: BP 95/60; PULSE 71; RESP 18; O2SAT 96
[2024-02-23 18:30] LABS: PTT Partial Thromboplastin Tim 37 SECONDS (25.1-36.5)
[2024-02-23 18:32] LABS: Add Manual Diff / Slide Review NO; Basophils Absolute Auto 0 /uL (0-100); Basophils Percent Auto 0.6 % (0-2); Eosinophils Absolute Auto 100 /uL (0-450); Eosinophils Percent Auto 2.1 % (2-4); Hematocrit 27.8 % (36-46); Hemoglobin 9.1 g/dL (12.0-16.0); Lymphocytes Absolute Auto 800 /uL (1100-4500); Lymphocytes Percent Auto 17.4 % (25-40); Mean Corpuscular HGB Conc 32.8 % (30-36); Mean Corpuscular Hemoglobin 26.9 PG (26-34); Mean Corpuscular Volume 82.1 fL (80-100); Monocytes Absolute Auto 600 /uL (0-900); Monocytes Percent Auto 12.8 % (3-14); Neutrophils Absolute Auto 3200 /uL (1500-7000); Neutrophils Percent Auto 67.1 % (50-75); Platelet Count 117 X10^3/uL (150-400); Red Blood Cell Count 3.39 X10^6/uL (4.0-5.2); Red Cell Distribution Width 16.4 % (11.6-14.8); White Blood Cell Count 4.8 X10^3/uL (4.5-11.0)
[2024-02-23 18:40] LABS: Alanine Aminotransferase 32 IU/L (<35); Albumin 2.8 g/dL (3.5-5.0); Albumin Globulin Ratio 0.7 (1.0-2.8); Alkaline Phosphatase 68 U/L (38-126); Aspartate Aminotransferase 76 IU/L (14-36); BUN Creatinine Ratio 17.5 (6-22); Bilirubin Total 1.4 mg/dL (0.2-1.3); Blood Urea Nitrogen 11 mg/dL (7-17); Calcium 8.7 mg/dL (8.4-10.2); Carbon Dioxide 26 mmol/L (22-32); Chloride 106 mmol/L (98-107); Estimated Glomerular Filt Rate > 60 mL/min (>60); Glucose 109 mg/dL (80-110); Potassium 3.8 mmol/L (3.4-5.1); Sodium 135 mmol/L (137-145); Total Protein 6.8 g/dL (6.3-8.2)
[2024-02-23 18:42] LABS: HEMOLYSIS 79 (0-50)
--- NOTE | 2024-02-23 18:56 | DI.US.S_ITS ---
PROCEDURE: US ABDOMEN LIMITED INDICATIONS: JULIA FOR PARACENTESIS TECHNIQUE: Real-time focused scanning was performed of the abdomen, with image documentation. COMPARISON: None. FINDINGS: Targeted ultrasound of the abdomen demonstrates small volume ascites. IMPRESSION: Small volume ascites. Dictated by: Lance Avila M.D. on 02/23/2024 at 20:44 Approved by: Lance Avila M.D. on 02/23/2024 at 20:45
== END 2024-02-23 19:48 | disposition home or self-care (01) ==
PROVIDERS: Emergency Provider Emergency Medicine; Family Provider Nurse Practitioner; PCP Nurse Practitioner
DX: R18.8 Other ascites (principal); F10.11 Alcohol abuse, in remission; Z87.19 Personal history of other diseases of the digestive system
CPT/HCPCS: 76705; 80053; 81003; 85025; 85610; 85730; 99282; 99283; 99284

== ENCOUNTER → 2024-03-29 09:30 | Oncology outpatient (ONC) | payer OTHER, MEDICAID, SELFPAY ==
[2022-02-25 13:50] VITALS: BP 118/86; PULSE 96; RESP 18; TEMP 36.4; O2SAT 98
[2022-02-25] MEDS: diphenhydrAMINE 25 MG TABLET PO (14:12)
[2022-02-25] MEDS: IRON SUCROSE 200 MG in SODIUM CHLORIDE 0.9% 100 ML 220 MG IV (14:18)
[2022-02-27] MEDS: IRON SUCROSE 200 MG in SODIUM CHLORIDE 0.9% 100 ML 220 MG IV (12:03)
[2022-03-03] MEDS: IRON SUCROSE 200 MG in SODIUM CHLORIDE 0.9% 100 ML 220 MG IV (14:32)
[2022-03-05] MEDS: IRON SUCROSE 200 MG in SODIUM CHLORIDE 0.9% 100 ML 220 MG IV (14:52)
[2022-03-05 15:33] VITALS: BP 85/55; PULSE 66; RESP 16; TEMP 36.6; O2SAT 95
[2022-03-05 15:54] VITALS: BP 88/59; PULSE 65
--- NOTE | 2022-03-05 15:54 | PC.NURSE ---
low BP, patient stated she was dizzy when she came in for iron infusion, bp 85/55. She stated that this is up from yesterday when she received extra fluids post endoscopy. Post iron infusion bp 88/59, patient stood and said she no longer felt dizziness. She was instructed to continue pushing fluids at home and to call her PCP if she develops dizziness again or low bp. She stated she would measure at home and call Divina Lopes if dizzy.
--- NOTE | 2022-03-05 16:09 | PC.NURSE ---
low BP: this nurse called and spoke to Catherine at Divina Lopes's office and relayed the info of the previous note. Catherine stated she would inform Divina, check the labs which patient was going from here to have done and call the patient.
[2022-03-11 14:30] VITALS: BP 84/59; BP 85/51; PULSE 70; PULSE 75
[2022-03-11] MEDS: diphenhydrAMINE 25 MG TABLET PO (14:45)
[2022-03-11 14:46] VITALS: BP 84/59; PULSE 70; RESP 18; TEMP 36.9; O2SAT 96
[2022-03-11] MEDS: IRON SUCROSE 200 MG in SODIUM CHLORIDE 0.9% 100 ML 220 MG IV (14:54)
[2022-03-11 15:20] VITALS: BP 83/57; BP 86/51; PULSE 68; PULSE 70
--- NOTE | 2022-03-11 16:32 | PC.NURSE ---
Low B/P. Patient reports B/P's have been running low at home with occasional dizziness with position changes.She has seen a change in blood pressure since starting meds for her severe back pain: muscle relaxants and Lortab.When queried patient stated she was not on B/P meds. Post iron infusion bp 86/51 denied dizziness. She was instructed to continue pushing fluids at home and to call her PCP if she develops dizziness again or low BP She stated she would measure at home and call Divina Lopes if dizzy. After she departed it is noted she is on Lasix and Spironactalone. Call to Divina Lopes's office; left message re;low B/P and to assess for med changes as needed. Call to pt to advise her to contact PCP in am prior to taking her diruetic meds meds. She stated understanding
[2024-03-01 10:36] VITALS: BP 104/68; PULSE 64; RESP 18; TEMP 36.2; O2SAT 100
[2024-03-01] MEDS: ferumoxytoL 510 MG in SODIUM CHLORIDE 0.9% 100 ML 468 MG IV (11:00)
[2024-03-01 12:14] VITALS: BP 100/57; PULSE 62; RESP 18; TEMP 36.6; O2SAT 98
[2024-03-10 10:34] VITALS: BP 111/69; PULSE 63; RESP 16; TEMP 36.6; O2SAT 98
[2024-03-10] MEDS: ferumoxytoL 510 MG in SODIUM CHLORIDE 0.9% 100 ML 234 MG IV (11:25)
[2024-03-10 13:02] VITALS: BP 107/64; PULSE 62
[2024-03-29 09:40] VITALS: BP 95/61; PULSE 60; RESP 18; TEMP 36.6; O2SAT 98
[2024-03-29] MEDS: ferumoxytoL 510 MG in SODIUM CHLORIDE 0.9% 100 ML 468 MG IV (10:22)
== END ==
PROVIDERS: PCP Nurse Practitioner; Referring Provider Nurse Practitioner; Visit Provider Nurse Practitioner
DX: D50.0 Iron deficiency anemia secondary to blood loss (chronic) (principal)
CPT/HCPCS: 96365; 96366; J1756; Q0138

== ENCOUNTER 2024-05-17 19:45 | Emergency (ER) | payer OTHER, MEDICAID, SELFPAY ==
[2024-02-09 11:41] VITALS: BMI 21.4
[2024-05-17 19:46] VITALS: BP 115/66; PULSE 89; RESP 17; TEMP 36.4; O2SAT 96; BMI 20.5
[2024-05-17 20:17] LABS: Add Manual Diff / Slide Review NO; Basophils Absolute Auto 100 /uL (0-100); Basophils Percent Auto 1.2 % (0-2); Eosinophils Absolute Auto 100 /uL (0-450); Eosinophils Percent Auto 1.5 % (2-4); Hematocrit 39.9 % (36-46); Hemoglobin 13.5 g/dL (12.0-16.0); Lymphocytes Absolute Auto 2000 /uL (1100-4500); Lymphocytes Percent Auto 34.7 % (25-40); Mean Corpuscular HGB Conc 33.7 % (30-36); Mean Corpuscular Hemoglobin 32.8 PG (26-34); Mean Corpuscular Volume 97.1 fL (80-100); Monocytes Absolute Auto 500 /uL (0-900); Monocytes Percent Auto 8.5 % (3-14); Neutrophils Absolute Auto 3100 /uL (1500-7000); Neutrophils Percent Auto 54.1 % (50-75); Platelet Count 117 X10^3/uL (150-400); Red Blood Cell Count 4.11 X10^6/uL (4.0-5.2); Red Cell Distribution Width 13.6 % (11.6-14.8); White Blood Cell Count 5.8 X10^3/uL (4.5-11.0)
[2024-05-17 20:30] LABS: INR 1.2 (0.9-1.3); Prothrombin Time 14.1 SECONDS (9.4-12.5)
[2024-05-17 20:33] LABS: PTT Partial Thromboplastin Tim 43 SECONDS (25.1-36.5)
[2024-05-17 20:34] LABS: Alanine Aminotransferase 78 IU/L (<35); Albumin 4.1 g/dL (3.5-5.0); Albumin Globulin Ratio 0.9 (1.0-2.8); Alkaline Phosphatase 107 U/L (38-126); Aspartate Aminotransferase 156 IU/L (14-36); BUN Creatinine Ratio 15.6 (6-22); Bilirubin Total 1.5 mg/dL (0.2-1.3); Blood Urea Nitrogen 12 mg/dL (7-17); Calcium 9.4 mg/dL (8.4-10.2); Carbon Dioxide 26 mmol/L (22-32); Chloride 106 mmol/L (98-107); Estimated Glomerular Filt Rate > 60 mL/min (>60); Globulin 4.5 g/dL (1.7-4.1); Glucose 117 mg/dL (80-110); HEMOLYSIS < 15 (0-50); Potassium 3.6 mmol/L (3.4-5.1); Sodium 145 mmol/L (137-145); Total Protein 8.6 g/dL (6.3-8.2)
[2024-05-17 23:30] VITALS: BP 118/57; PULSE 74; RESP 19; O2SAT 94
[2024-05-17 23:42] LABS: Hematocrit 39.8 % (36-46); Hemoglobin 13.4 g/dL (12.0-16.0)
[2024-05-17 23:52] VITALS: PULSE 83; RESP 14; O2SAT 96
[2024-05-18] VITALS: PULSE 77; RESP 20; O2SAT 94
--- NOTE | 2024-05-18 | ED_ITS ---
HPI - GI Bleed General Chief complaint: GI Bleed Stated complaint: ETOH/ Dizzy Time Seen by Provider: 05/17/24 22:38 Source: patient and EMS Mode of arrival: EMS History of Present Illness HPI Narrative: 64-year-old female. History of alcohol abuse. Also has a history of esophageal varices and gastric varices hemorrhoids. States that she drank yesterday and also today. She stated that she was started to feel dizzy. Has been having bright red blood per rectum for the past couple days as well. Muscle having abdominal cramping and loose stools. Nausea but no vomiting. She has been taking all of her medications as directed. She was not on anticoagulation. Related Data Home Medications Medication Instructions Recorded Confirmed lactulose 10 gram/15 mL oral 15 ml PO BID PRN per patient 10/16/22 04/27/24 solution discretion rifaximin 550 mg tablet (Xifaxan) 550 mg PO BID 06/16/23 04/01/24 omega 4-hfo-yrq-fish oil 300 1 cap PO DAILY 04/01/24 04/01/24 mg-1,000 mg capsule (Fish Oil) omeprazole 40 mg capsule,delayed 40 mg PO DAILY GERD 04/01/24 04/01/24 release Previous Rx's Medication Instructions Recorded spironolactone 50 mg tablet 50 mg PO DAILY #90 tabs 06/30/23 furosemide 20 mg tablet 40 mg (2 x 20 mg) PO QAM #60 tabs 10/07/23 liothyronine 5 mcg tablet 10 mcg (2 x 5 mcg) PO DAILY #180 10/14/23 tabs nadolol 20 mg tablet 30 mg (1.5 x 20 mg) PO DAILY #135 10/14/23 tabs magnesium oxide 500 mg PO DAILY #30 tabs 10/22/23 levothyroxine 100 mcg capsule 100 mcg PO DAILY #90 caps 01/11/24 lorazepam 0.5 mg tablet 0.5 mg PO BEDTIME PRN sleep #45 01/28/24 tabs vit,calcium no.40-iron 1 tab PO DAILY #90 tabs 02/08/24 fum 27 mg iron-folate no.1 1 mg tablet ondansetron 4 mg disintegrating 4 mg PO Q6H PRN nausea and 02/13/24 tablet vomiting #30 tabs sucralfate 1 gram tablet (Carafate) 1 g PO BID #180 tabs 03/23/24 pregabalin 75 mg capsule 75 mg PO TID #90 caps 04/07/24 diazepam 10 mg tablet (Valium) 10 mg PO ONCE #1 tab 04/18/24 dicyclomine 10 mg capsule 10 mg PO QID PRN abdominal pain 05/18/24 #14 caps Allergies Allergy/AdvReac Type Severity Reaction Status Date / Time doxepin AdvReac Intermediate ITCHING Verified 05/17/24 19:46 Review of Systems Review of Systems Narrative: See HPI Patient History Medical History Stomach ulcer Hematemesis of fresh blood Multilevel spondylosis Back pain Alcoholic cirrhosis GERD (gastroesophageal reflux disease) Pancytopenia Thrombocytopenia Anemia due to blood loss, acute Bleeding internal hemorrhoids Pancreatic lesion (~04/18/23) Weakness of left upper extremity Stroke Anemia, macrocytic Anemia, blood loss Alcohol use disorder, severe, in early remission Hemorrhoids, internal Depression Shortness of breath Hypercalcemia Weight gain Ascites due to alcoholic cirrhosis SBO (small bowel obstruction) Pancreatitis Intermittent palpitations (04/2019) History of blood transfusion (10/2015) Coagulation disorder (2012) Hypothyroidism Hypertension History of heavy periods (2014) Ovarian cyst (2012) Painful menstrual periods (2012) Measles Mumps Chicken pox Eczema (2014) Psoriasis (2014) PTSD (post-traumatic stress disorder) (1999) Anxiety EV (esophageal varices) (10/2015) Portal hypertensive gastropathy (05/2015) Nonalcoholic fatty liver disease GI bleeding (2015) Cirrhosis (2012) Cardiac arrhythmia History of alcohol abuse (12/27/15) Surgical History H/O bilateral oophorectomy History of appendectomy History of inguinal hernia repair History of cholecystectomy History of esophagogastroduodenoscopy (EGD) (05/2015) Status post laparoscopic supracervical hysterectomy (08/25/16) Status post hysteroscopy (06/17/11) Status post hernia repair Status post appendectomy History of esophagogastroduodenoscopy (EGD) (01/2009) Status post colonoscopy (01/2009) Family History Grandfather Heart disease [place] (myocardial infarction) Grandmother Alcoholism Father No problems noted. Mother No problems noted. Grandfather Heart disease Grandmother Colon cancer Brother No problems noted. Social History household members: family Smoking Status: Never smoker alcohol intake: former Smoking Status: Never smoker alcohol intake frequency: 3 or more drinks per day Alcohol type: wine Substance Use Type: does not use Exam Initial Vital Signs Initial Vital Signs: Vital Signs Temperature 97.6 F 05/17/24 19:46 Pulse Rate 89 05/17/24 19:46 Respiratory Rate 17 05/17/24 19:46 Blood Pressure 115/66 05/17/24 19:46 Pulse Oximetry 96 05/17/24 19:46 Oxygen Delivery Method Room Air 05/17/24 19:46 Const General: cooperative and comfortable Resp Effort & Inspection: normal respiratory effort Auscultation: clear to auscultation bilaterally Cardio Rate: regular rate Rhythm: regular rhythm GI Inspection: normal to inspection and non-distended Palpation: soft, No firm and No guarding Skin General: no rashes or lesions noted Neuro General: patient alert, patient awake, patient oriented x3 and moves all extremities Extrem General: capillary refill normal Course Orders Ordered: ED Orders 05/17/24 23:35 Hemoglobin and Hematocrit Stat Discontinued Medications Dicyclomine HCl (Dicyclomine 10 Mg Capsule) 20 mg PO NOW ONE Stop: 05/18/24 00:02 Last Admin: 05/18/24 00:12 Dose: 20 mg Documented By: GERARDO Ondansetron HCl (Ondansetron 4 Mg/2 Ml Inj) 4 mg IV NOW PRN PRN Reason: Nausea And Vomiting Ondansetron HCl (Ondansetron 4 Mg Odt) 4 mg SL NOW PRN PRN Reason: Nausea And Vomiting Ondansetron HCl (Ondansetron 4 Mg/2 Ml Inj) 4 mg IV NOW ONE Stop: 05/18/24 00:02 Last Admin: 05/18/24 00:12 Dose: 4 mg Documented By: GERARDO Pantoprazole Sodium (Pantoprazole 40 Mg Vial) 80 mg IV NOW ONE Stop: 05/17/24 19:53 Last Admin: 05/18/24 00:12 Dose: 80 mg Documented By: GERARDO Vital Signs Vital signs: Vital Signs - 8 hr 05/17/24 23:30 05/17/24 23:52 05/18/24 00:00 Pulse Rate 74 83 77 Respiratory Rate 19 14 20 Blood Pressure 118/57 L Pulse Oximetry 94 96 94 Oxygen Delivery Method Room Air Room Air 05/18/24 00:21 05/18/24 00:21 Pulse Rate 67 Respiratory Rate 19 Blood Pressure 91/55 L Pulse Oximetry 93 Oxygen Delivery Method Room Air MDM - GI Bleed Lab Data Attestation: I reviewed the patient's lab results. 05/17/24 23:35 05/17/24 20:06 Labs: Lab Results 05/17/24 05/17/24 Range/Units 20:06 23:35 WBC 5.8 (4.5-11.0) X10^3/uL RBC 4.11 (4.0-5.2) X10^6/uL Hgb 13.5 13.4 (12.0-16.0) g/dL Hct 39.9 39.8 (36-46) % MCV 97.1 (80-100) fL MCH 32.8 (26-34) PG MCHC 33.7 (30-36) % RDW 13.6 (11.6-14.8) % Plt Count 117 L (150-400) X10^3/uL Neut % (Auto) 54.1 (50-75) % Lymph % (Auto) 34.7 (25-40) % [place] % (Auto) 8.5 (3-14) % Eos % (Auto) 1.5 L (2-4) % Baso % (Auto) 1.2 (0-2) % Neut # (Auto) 3100 (4638-0750) /uL Lymph # (Auto) 2000 (8769-1626) /uL [place] # (Auto) 500 (0-900) /uL Eos # (Auto) 100 (0-450) /uL Baso # (Auto) 100 (0-100) /uL PT 14.1 H (9.4-12.5) SECONDS INR 1.2 (0.9-1.3) APTT 43 H (25.1-36.5) SECONDS Sodium 145 (137-145) mmol/L Potassium 3.6 (3.4-5.1) mmol/L Chloride 106 (98-107) mmol/L Carbon Dioxide 26 (22-32) mmol/L BUN 12 (7-17) mg/dL Creatinine 0.77 (0.52-1.04) mg/dL Estimated GFR > 60 (>60) mL/min BUN/Creatinine Ratio 15.6 (6-22) Glucose 117 H (80-110) mg/dL Calcium 9.4 (8.4-10.2) mg/dL Total Bilirubin 1.5 H (0.2-1.3) mg/dL AST 156 H (14-36) IU/L ALT 78 H (<35) IU/L Alkaline Phosphatase 107 (38-126) U/L Total Protein 8.6 H (6.3-8.2) g/dL Albumin 4.1 (3.5-5.0) g/dL Globulin 4.5 H (1.7-4.1) g/dL Albumin/Globulin Ratio 0.9 L (1.0-2.8) Blood Type A Positive Antibody Screen Negative MDM Narrative Medical decision making narrative: Patient was having abdominal cramping. She admits to drinking alcohol both yesterday and today and probably for the past couple days. She was not anemic. Repeat H&H is unchanged. No indication for blood transfusion. She was states she reports improvement of her abdominal cramping with medications here in the ER. She was having diarrhea but she also takes lactulose. She was follow-up with her GI provider scheduled. Advised that she contact her GI doctor primary doctor for follow-up she was given return precautions. She expressed understanding and agreement. Discharge Plan Departure Patient Disposition: Home Clinical Impression: Abdominal cramping Instructions: DI for Abdominal Pain-Adult Activity Restrictions/Additional Instructions: Continue to take all of your medications as directed. I do recommend you contact your primary care doctor and also your GI doctor tomorrow for a follow- up. Ten you to do your best to abstain from alcohol use. Return to the emergency department for new symptoms. Prescriptions: New dicyclomine 10 mg capsule 10 mg PO QID PRN (Reason: abdominal pain) Qty: 14 0RF No Action omeprazole 40 mg capsule,delayed release(DR/EC) 40 mg PO DAILY omega 5-mkj-zaq-fish oil [Fish Oil] 300-1,000 mg capsule 1 cap PO DAILY spironolactone 50 mg tablet 50 mg PO DAILY Qty: 90 3RF furosemide 20 mg tablet 40 mg PO QAM Qty: 60 3RF Rx Instructions: Take 1 extra tab of 20mg (total 40mg) daily liothyronine 5 mcg tablet 10 mcg PO DAILY Qty: 180 3RF nadolol 20 mg tablet 30 mg PO DAILY Qty: 135 3RF Rx Instructions: takes at about 1500 Qday levothyroxine 100 mcg capsule 100 mcg PO DAILY Qty: 90 3RF ,calc.46-zqqa-omourt 1 27-1 mg tablet 1 tab PO DAILY Qty: 90 3RF Rx Instructions: Take 1 tab daily for anemia pregabalin 75 mg capsule 75 mg PO TID Qty: 90 3RF diazepam [Valium] 10 mg tablet 10 mg PO ONCE Qty: 1 0RF Rx Instructions: Take 1 hour prior to procedure lactulose 10 gram/15 mL solution 15 ml PO BID PRN (Reason: per patient discretion) Patient Comments: Take 30mL daily if pt does not have 3 BMs per day Rx Instructions: patient holds medication with diarrhea Xifaxan 550 mg tablet 550 mg PO BID magnesium oxide 500 mg magnesium tablet 500 mg PO DAILY Qty: 30 3RF lorazepam 0.5 mg tablet 0.5 mg PO BEDTIME PRN (Reason: sleep) Qty: 45 3RF sucralfate [Carafate] 1 gram tablet 1 g PO BID Qty: 180 3RF ondansetron 4 mg tablet,disintegrating 4 mg PO Q6H PRN (Reason: nausea and vomiting) Qty: 30 0RF Referrals: John Powers MD [Primary Care Provider] - Stand Alone Forms: Patient Portal/API/Survey
[2024-05-18] MEDS: ONDANSETRON 4 MG/2 ML INJ IV (00:12)
[2024-05-18] MEDS: DICYCLOMINE 10 MG CAPSULE 20 MG PO (00:12)
[2024-05-18] MEDS: PANTOPRAZOLE 40 MG VIAL 80 MG IV (00:12)
[2024-05-18 00:21] VITALS: BP 91/55; PULSE 67; RESP 19; O2SAT 93
== END 2024-05-18 00:52 | disposition home or self-care (01) ==
PROVIDERS: Emergency Provider Emergency Medicine; Family Provider Nurse Practitioner; PCP Family Medicine
DX: R10.9 Unspecified abdominal pain (principal); R42 Dizziness and giddiness
CPT/HCPCS: 36415; 80053; 85014; 85018; 85025; 85610; 85730; 86850; 86900; 86901; 96374; 96375; 99284; J2405; J2470

== ENCOUNTER → 2024-07-21 13:11 | Outpatient (CLI) | payer OTHER, SELFPAY ==
[2024-07-04 10:20] VITALS: BMI 21.4
--- NOTE | 2024-07-21 13:16 | DI.RAD.S_ITS ---
PROCEDURE: XR LUMBAR SPINE 2-3V INDICATIONS: acute on chronic mid and low back pain TECHNIQUE: 3 views of the lumbar spine were acquired. COMPARISON: [facility], CT, CT ABDOMEN PELVIS W CON, 02/19/2024, 20:13. [facility], CR, XR LUMBAR SPINE 2-3V, 02/19/2022, 2:29. FINDINGS: Bones: 5 [id number] vertebrae are present. There is dextroscoliotic bony alignment centered at L2. No vertebral body compression fractures. No suspicious bony lesions. Soft tissues: Overlying bowel gas pattern is normal. No suspicious soft tissue calcifications. IMPRESSION: No acute bony abnormality. Mild dextroscoliosis L2. Pancreatic head region calcifications partially visualized right upper quadrant, right upper quadrant cholecystectomy clips. Dictated by: Pritesh Rogers M.D. on 07/21/2024 at 15:32 Approved by: Pritesh Rogers M.D. on 07/21/2024 at 15:35
--- NOTE | 2024-07-21 13:16 | DI.RAD.S_ITS ---
PROCEDURE: XR THORACIC SPINE 3V INDICATIONS: acute on chronic mid and low back pain TECHNIQUE: 3 views of the thoracic spine were acquired. COMPARISON: [facility], [place], XR THORACIC SPINE 3V, 02/19/2022, 2:29. FINDINGS: Bones: No fractures or dislocations. Mild to moderate degenerative disc height reduction along the middle third of the thoracic spine. No suspicious bony lesions. 12 pairs of ribs are noted, and appear intact where visualized. Soft tissues: No paravertebral stripe thickening. IMPRESSION: No acute bony abnormality. [id number] degenerative disc disease noted along the middle 3rd of the thoracic spine. Dictated by: Pritesh Rogers M.D. on 07/21/2024 at 15:35 Approved by: Pritesh Rogers M.D. on 07/21/2024 at 15:36
== END ==
PROVIDERS: Family Provider Nurse Practitioner; PCP Family Medicine; Referring Provider Family Medicine; Visit Provider Family Medicine
DX: M51.34 Other intervertebral disc degeneration, thoracic region (principal); M41.9 Scoliosis, unspecified; M62.830 Muscle spasm of back; K86.89 Other specified diseases of pancreas; M54.9 Dorsalgia, unspecified; G89.29 Other chronic pain
CPT/HCPCS: 72072; 72100

== ENCOUNTER → 2024-08-11 14:52 | Outpatient (CLI) | payer OTHER, SELFPAY ==
[2024-07-04 10:20] VITALS: BMI 21.4
[2024-08-11 16:08] LABS: T4 Total Thyroxine 5.83 ug/dL (5.5-11.0)
[2024-08-11 16:22] LABS: Thyroid Stimulating Hormone 1.67 uIU/mL (0.47-4.68)
== END ==
PROVIDERS: Family Provider Family Medicine; PCP Family Medicine; Referring Provider Internal Medicine Endocrinology, Diabetes & Metabolism; Visit Provider Internal Medicine Endocrinology, Diabetes & Metabolism
DX: E03.9 Hypothyroidism, unspecified (principal)
CPT/HCPCS: 36415; 84436; 84443; 84480

== ENCOUNTER → 2024-08-12 14:53 | Outpatient (CLI) | payer OTHER, SELFPAY ==
[2024-07-04 10:20] VITALS: BMI 21.4
[2024-08-15 14:58] LABS: Hematocrit 30.3 % (36-46); Hemoglobin 9.6 g/dL (12.0-16.0); Mean Corpuscular HGB Conc 31.8 % (30-36); Mean Corpuscular Hemoglobin 26.6 PG (26-34); Mean Corpuscular Volume 83.5 fL (80-100); Platelet Count 84 X10^3/uL (150-400); Red Blood Cell Count 3.62 X10^6/uL (4.0-5.2); Red Cell Distribution Width 15.1 % (11.6-14.8); White Blood Cell Count 3.5 X10^3/uL (4.5-11.0)
== END ==
PROVIDERS: Family Provider Family Medicine; PCP Family Medicine; Referring Provider Family Medicine; Visit Provider Family Medicine
DX: D62 Acute posthemorrhagic anemia (principal); K64.8 Other hemorrhoids
CPT/HCPCS: 36415; 85027

== ENCOUNTER → 2024-08-19 14:51 | Outpatient (CLI) | payer OTHER, SELFPAY ==
[2024-07-04 10:20] VITALS: BMI 21.4
[2024-08-19 15:31] LABS: Add Manual Diff / Slide Review NO; Basophils Absolute Auto 0 /uL (0-100); Basophils Percent Auto 0.5 % (0-2); Eosinophils Absolute Auto 100 /uL (0-450); Eosinophils Percent Auto 1.3 % (2-4); Hematocrit 26.7 % (36-46); Hemoglobin 8.6 g/dL (12.0-16.0); Lymphocytes Absolute Auto 700 /uL (1100-4500); Lymphocytes Percent Auto 13.4 % (25-40); Mean Corpuscular HGB Conc 32.4 % (30-36); Mean Corpuscular Hemoglobin 26.6 PG (26-34); Mean Corpuscular Volume 82.1 fL (80-100); Monocytes Absolute Auto 700 /uL (0-900); Monocytes Percent Auto 12.9 % (3-14); Neutrophils Absolute Auto 3800 /uL (1500-7000); Neutrophils Percent Auto 71.9 % (50-75); Platelet Count 104 X10^3/uL (150-400); Red Blood Cell Count 3.25 X10^6/uL (4.0-5.2); Red Cell Distribution Width 14.9 % (11.6-14.8); White Blood Cell Count 5.3 X10^3/uL (4.5-11.0)
[2024-08-19 15:49] LABS: Alanine Aminotransferase 39 IU/L (<35); Albumin 3.6 g/dL (3.5-5.0); Albumin Globulin Ratio 1.1 (1.0-2.8); Alkaline Phosphatase 75 U/L (38-126); Aspartate Aminotransferase 70 IU/L (14-36); Bilirubin Total 1.2 mg/dL (0.2-1.3); Blood Urea Nitrogen 20 mg/dL (7-17); Calcium 9.3 mg/dL (8.4-10.2); Carbon Dioxide 25 mmol/L (22-32); Chloride 104 mmol/L (98-107); Estimated Glomerular Filt Rate > 60 mL/min (>60); Globulin 3.4 g/dL (1.7-4.1); Glucose 140 mg/dL (80-110); HEMOLYSIS < 15 (0-50); Potassium 3.3 mmol/L (3.4-5.1); Sodium 136 mmol/L (137-145)
== END ==
PROVIDERS: Family Provider Family Medicine; PCP Family Medicine; Referring Provider Family Medicine; Visit Provider Family Medicine
DX: K64.9 Unspecified hemorrhoids (principal)
CPT/HCPCS: 36415; 80053; 85025

== ENCOUNTER 2024-08-19 16:58 | Emergency (ER) | payer OTHER, SELFPAY ==
[2024-07-04 10:20] VITALS: BMI 21.4
[2024-08-19] VITALS (14 sets, daily range): BP systolic 83–119; BP diastolic 46–63; PULSE 77–91; RESP 15–20; TEMP 36.6; O2SAT 94–100; BMI 21.4
--- NOTE | 2024-08-19 17:22 | EKG_ITS ---
[place] [address] [address] [place] [id number] Test Date: 2024-08-19 Pat Name: Kristen Castle Department: [facility] Room: Gender: Female Administration Specialist: : [id number] Requested By: Order Number: [id number] Reading MD: Iftikhar Monahan Measurements Intervals [place] Rate: 80 P: 52 CO: 210 QRS: 4 QRSD: 66 T: 61 QT: 408 QTc: 470 Interpretive Statements Sinus rhythm with 1st degree AV block Nonspecific ST abnormality Electronically Signed On 08-20-2024 8:00:33 PST by Iftikhar Monahan
[2024-08-19 18:43] LABS: Add Manual Diff / Slide Review NO; Basophils Absolute Auto 0 /uL (0-100); Basophils Percent Auto 0.6 % (0-2); Eosinophils Absolute Auto 100 /uL (0-450); Eosinophils Percent Auto 1.2 % (2-4); Hematocrit 26.3 % (36-46); Hemoglobin 8.3 g/dL (12.0-16.0); Lymphocytes Absolute Auto 700 /uL (1100-4500); Lymphocytes Percent Auto 14.5 % (25-40); Mean Corpuscular HGB Conc 31.8 % (30-36); Mean Corpuscular Hemoglobin 26.2 PG (26-34); Mean Corpuscular Volume 82.3 fL (80-100); Monocytes Absolute Auto 800 /uL (0-900); Monocytes Percent Auto 16.6 % (3-14); Neutrophils Absolute Auto 3300 /uL (1500-7000); Neutrophils Percent Auto 67.1 % (50-75); Platelet Count 93 X10^3/uL (150-400); Red Blood Cell Count 3.19 X10^6/uL (4.0-5.2)
[2024-08-19 18:53] LABS: INR 1.6 (0.9-1.3); Prothrombin Time 17.4 SECONDS (9.4-12.5)
[2024-08-19 18:56] LABS: PTT Partial Thromboplastin Tim 34 SECONDS (25.1-36.5)
[2024-08-19 18:57] LABS: Alanine Aminotransferase 37 IU/L (<35); Albumin 3.7 g/dL (3.5-5.0); Albumin Globulin Ratio 1.1 (1.0-2.8); Alkaline Phosphatase 83 U/L (38-126); Aspartate Aminotransferase 73 IU/L (14-36); Bilirubin Total 1.2 mg/dL (0.2-1.3); Blood Urea Nitrogen 18 mg/dL (7-17); Calcium 9.1 mg/dL (8.4-10.2); Carbon Dioxide 24 mmol/L (22-32); Chloride 104 mmol/L (98-107); Estimated Glomerular Filt Rate > 60 mL/min (>60); Globulin 3.5 g/dL (1.7-4.1); Glucose 92 mg/dL (80-110); HEMOLYSIS < 15 (0-50); Sodium 137 mmol/L (137-145); Total Protein 7.2 g/dL (6.3-8.2)
--- NOTE | 2024-08-19 20:35 | ED_ITS ---
HPI - GI Bleed General Chief complaint: GI Bleed Stated complaint: Sent by MD; Bleeding, Blood Levels Low Time Seen by Provider: 08/19/24 20:35 Source: patient Mode of arrival: Ambulatory History of Present Illness HPI Narrative: 64-year-old female history of hemorrhoids with hemorrhoidectomy, hypothyroidism, comes into the ED from primary care for rectal bleeding worsening over the past 18 hours. States that her blood count has been going lower scheduled for hemorrhoidectomy on September 12 she denies any pain states that she does feel a little weak not on any blood thinners. Patient states that while she was here in the emergency department she tried to use the restroom states that she just had active bleeding which she was able to stop with pressure with tissues here. She states she did not move her bowels at the time is not complaining of any other symptoms such as headache visual disturbances chest pain shortness breath fever chills nausea vomiting abdominal pain or any other GI/ symptoms time. Related Data Home Medications Medication Instructions Recorded Confirmed lactulose 10 gram/15 mL oral 15 ml PO BID PRN per patient 10/16/22 08/15/24 solution discretion rifaximin 550 mg tablet (Xifaxan) 550 mg PO BID 06/16/23 08/15/24 omega 8-yau-koc-fish oil 300 1 cap PO DAILY 04/01/24 08/15/24 mg-1,000 mg capsule (Fish Oil) omeprazole 40 mg capsule,delayed 40 mg PO DAILY GERD 04/01/24 08/15/24 release Previous Rx's Medication Instructions Recorded spironolactone 50 mg tablet 50 mg PO DAILY #90 tabs 06/30/23 furosemide 20 mg tablet 40 mg (2 x 20 mg) PO QAM #60 tabs 10/07/23 liothyronine 5 mcg tablet 10 mcg (2 x 5 mcg) PO DAILY #180 10/14/23 tabs nadolol 20 mg tablet 30 mg (1.5 x 20 mg) PO DAILY #135 10/14/23 tabs magnesium oxide 500 mg PO DAILY #30 tabs 10/22/23 levothyroxine 100 mcg capsule 100 mcg PO DAILY #90 caps 01/11/24 vit,calcium no.40-iron 1 tab PO DAILY #90 tabs 02/08/24 fum 27 mg iron-folate no.1 1 mg tablet sucralfate 1 gram tablet (Carafate) 1 g PO BID #180 tabs 03/23/24 pregabalin 75 mg capsule 75 mg PO TID #90 caps 04/07/24 dicyclomine 10 mg capsule 10 mg PO QID PRN abdominal pain 05/18/24 #14 caps ondansetron 4 mg disintegrating 4 mg PO Q8H PRN nausea and 07/04/24 tablet vomiting #30 tabs hydromorphone 2 mg tablet 2 mg PO Q6H #30 tabs 07/05/24 (Dilaudid) lorazepam 0.5 mg tablet 0.5 mg PO BEDTIME PRN sleep #30 08/05/24 tabs Allergies Allergy/AdvReac Type Severity Reaction Status Date / Time baclofen AdvReac Severe Hallucinati Verified 08/15/24 09:34 ng ciprofloxacin AdvReac Intermediate Vomiting Verified 08/15/24 09:34 Review of Systems Review of Systems Narrative: General: Denies fever, chills, weight loss HEENT: Denies headache, eye drainage, eye irritation, head trauma, sore throat, voice change Cardiovascular: Denies any chest pain, palpitations, shortness of breath, tachycardia Respiratory: Denies any shortness of breath, cough, wheeze, stridor GI/: Positive bright red blood per rectum, Denies any abdominal pain, nausea, vomiting, diarrhea, melanotic stools, urinary frequency, urinary retention, dysuria, hematuria MSK: Denies any joint pain, muscle pains, swelling Skin: Denies any rashes, lesions, discoloration Neuro: Denies any headache, lightheadedness, dizziness, fainting, weakness Psych: Denies SI/HI Patient History Medical History Stomach ulcer Hematemesis of fresh blood Multilevel spondylosis Back pain Alcoholic cirrhosis GERD (gastroesophageal reflux disease) Pancytopenia Thrombocytopenia Anemia due to blood loss, acute Bleeding internal hemorrhoids Pancreatic lesion (~04/18/23) Weakness of left upper extremity Stroke Anemia, macrocytic Anemia, blood loss Alcohol use disorder, severe, in early remission Hemorrhoids, internal Depression Shortness of breath Hypercalcemia Weight gain Ascites due to alcoholic cirrhosis SBO (small bowel obstruction) Pancreatitis Intermittent palpitations (04/2019) History of blood transfusion (10/2015) Coagulation disorder (2012) Hypothyroidism Hypertension History of heavy periods (2014) Ovarian cyst (2012) Painful menstrual periods (2012) Measles Mumps Chicken pox Eczema (2014) Psoriasis (2014) PTSD (post-traumatic stress disorder) (1999) Anxiety EV (esophageal varices) (10/2015) Portal hypertensive gastropathy (05/2015) Nonalcoholic fatty liver disease GI bleeding (2015) Cirrhosis (2012) Cardiac arrhythmia History of alcohol abuse (12/27/15) Surgical History H/O bilateral oophorectomy History of appendectomy History of inguinal hernia repair History of cholecystectomy History of esophagogastroduodenoscopy (EGD) (05/2015) Status post laparoscopic supracervical hysterectomy (08/25/16) Status post hysteroscopy (06/17/11) Status post hernia repair Status post appendectomy History of esophagogastroduodenoscopy (EGD) (01/2009) Status post colonoscopy (01/2009) Family History Grandfather Heart disease [place] (myocardial infarction) Grandmother Alcoholism Father No problems noted. Mother No problems noted. Grandfather Heart disease Grandmother Colon cancer Brother No problems noted. Social History household members: family Smoking Status: Never smoker alcohol intake: former Smoking Status: Never smoker alcohol intake frequency: 3 or more drinks per day Alcohol type: wine Exam Narrative Exam Narrative: General: Cooperative, comfortable, well-developed, not in acute distress HEENT: Normocephalic, atraumatic, PERRLA, normal sclera, eyelids normal, Neck: Active full range of motion, atraumatic Chest: Normal to inspection, negative crepitus, no overlying erythema ecchymosis Respiratory: Normal respiratory effort, not in acute respiratory distress, clear to auscultation bilaterally negative cough, wheeze, tachypnea, rhonchi, rales Cardiology: Regular rate rhythm negative gallop, murmur, rubs GI/: Normal to inspection, soft, nonrigid, no tenderness to palpation, exam deferred, rectal exam nurse rose bedside, external hemorrhoids noted no palpable internal hemorrhoids hemoccult negative MSK: Full range of active range of motion of all 4 extremities, atraumatic Skin: No rashes lesions noted Neuro: Alert awake oriented x3, moves all 4 extremities spontaneously, cranial nerves intact, able to answer all questions appropriately follows commands appropriately Psych: Cooperative, negative suicidal or homicidal ideations Initial Vital Signs Initial Vital Signs: Vital Signs Temperature 98 F 08/19/24 17:17 Pulse Rate 84 08/19/24 17:17 Respiratory Rate 20 08/19/24 17:17 Blood Pressure 119/57 L 08/19/24 17:17 Pulse Oximetry 100 08/19/24 17:17 Oxygen Delivery Method Room Air 08/19/24 17:17 Course Orders Ordered: ED Orders 08/19/24 18:38 Complete Blood Count AUTO DIFF Stat Comprehensive Metabolic Panel Stat PRBC [Packed Cells] Stat PTT Partial Thromboplastin Donis Stat Prothrombin Time INR Stat Type and Screen Stat 08/19/24 20:55 CT angio abdomen pelvis Stat 08/20/24 01:00 Urine Microscopic Stat Ondansetron HCl (Ondansetron 4 Mg/2 Ml Inj) 4 mg IV NOW PRN PRN Reason: Nausea And Vomiting Ondansetron HCl (Ondansetron 4 Mg Odt) 4 mg SL NOW PRN PRN Reason: Nausea And Vomiting Discontinued Medications Pantoprazole Sodium (Pantoprazole 40 Mg Vial) 80 mg IV NOW ONE Stop: 08/19/24 17:23 Last Admin: 08/19/24 18:32 Dose: Not Given Documented By: JUDY Vital Signs Vital signs: Vital Signs - 8 hr 08/19/24 19:33 08/19/24 20:00 08/19/24 20:30 Pulse Rate 85 82 79 Respiratory Rate 16 17 19 Blood Pressure 107/63 92/56 L 98/57 L Pulse Oximetry 99 97 96 Oxygen Delivery Method 08/19/24 20:54 08/19/24 21:00 08/19/24 21:26 Pulse Rate 84 91 H 84 Respiratory Rate 16 16 18 Blood Pressure 87/52 L 88/50 L 92/55 L Pulse Oximetry 97 96 99 Oxygen Delivery Method 08/19/24 21:30 08/19/24 21:39 08/19/24 22:00 Pulse Rate 79 77 82 Respiratory Rate 16 16 19 Blood Pressure 84/46 L 83/50 L 85/54 L Pulse Oximetry 100 100 99 Oxygen Delivery Method Room Air 08/19/24 22:30 08/19/24 22:30 08/19/24 23:00 Pulse Rate 82 Respiratory Rate 19 Blood Pressure 87/52 L 85/47 L Pulse Oximetry 96 Oxygen Delivery Method 08/19/24 23:00 08/19/24 23:30 08/19/24 23:30 Pulse Rate 77 78 Respiratory Rate 15 17 Blood Pressure 86/50 L Pulse Oximetry 95 94 Oxygen Delivery Method 08/20/24 00:00 08/20/24 00:00 08/20/24 00:30 Pulse Rate 79 Respiratory Rate 21 Blood Pressure 84/51 L 88/52 L Pulse Oximetry 97 Oxygen Delivery Method 08/20/24 00:30 08/20/24 01:00 08/20/24 01:04 Pulse Rate 81 79 Respiratory Rate 19 19 Blood Pressure 85/50 L Pulse Oximetry 97 Oxygen Delivery Method 08/20/24 01:04 Pulse Rate 81 Respiratory Rate 20 Blood Pressure Pulse Oximetry 97 Oxygen Delivery Method MDM - GI Bleed Differential Diagnosis Differential diagnosis: Likely hemorrhoids, Lower gastrointestinal hemorrhage, hematochezia, melena, anal fissure and other (Anemia, electrolyte abnormality) Lab Data 08/19/24 18:38 08/19/24 18:38 Labs: Lab Results 08/19/24 08/20/24 Range/Units 18:38 01:00 WBC 5.0 (4.5-11.0) X10^3/uL RBC 3.19 L (4.0-5.2) X10^6/uL Hgb 8.3 L (12.0-16.0) g/dL Hct 26.3 L (36-46) % MCV 82.3 (80-100) fL MCH 26.2 (26-34) PG MCHC 31.8 (30-36) % RDW 15.0 H (11.6-14.8) % Plt Count 93 L (150-400) X10^3/uL Neut % (Auto) 67.1 (50-75) % Lymph % (Auto) 14.5 L (25-40) % [place] % (Auto) 16.6 H (3-14) % Eos % (Auto) 1.2 L (2-4) % Baso % (Auto) 0.6 (0-2) % Neut # (Auto) 3300 (8995-7883) /uL Lymph # (Auto) 700 L (0511-6175) /uL [place] # (Auto) 800 (0-900) /uL Eos # (Auto) 100 (0-450) /uL Baso # (Auto) 0 (0-100) /uL PT 17.4 H (9.4-12.5) SECONDS INR 1.6 H (0.9-1.3) APTT 34 (25.1-36.5) SECONDS Sodium 137 (137-145) mmol/L Potassium 3.0 L (3.4-5.1) mmol/L Chloride 104 (98-107) mmol/L Carbon Dioxide 24 (22-32) mmol/L BUN 18 H (7-17) mg/dL Creatinine 0.82 (0.52-1.04) mg/dL Estimated GFR > 60 (>60) mL/min BUN/Creatinine Ratio 22.0 (6-22) Glucose 92 (80-110) mg/dL Calcium 9.1 (8.4-10.2) mg/dL Total Bilirubin 1.2 (0.2-1.3) mg/dL AST 73 H (14-36) IU/L ALT 37 H (<35) IU/L Alkaline Phosphatase 83 (38-126) U/L Total Protein 7.2 (6.3-8.2) g/dL Albumin 3.7 (3.5-5.0) g/dL Globulin 3.5 (1.7-4.1) g/dL Albumin/Globulin Ratio 1.1 (1.0-2.8) Urine RBC 0-1/hpf (0-5/HPF) Urine WBC None seen (0-5/HPF) Ur Squamous Epith Cells 0-1 /hpf (0-5/HPF) Urine Bacteria None seen (None) Ur Culture Indicated? Cult not indicated Vol Urine Centrifuged 10ml (spun) Blood Type A Positive Antibody Screen Negative Crossmatch See Detail Urine Dip Bedside Urine Glucose Negative Bedside Urine Bilirubin - Negative Bedside Urine Ketone - Negative Urine Specific [place] 1.005 Bedside Urine Occult Blood ++ Bedside Urine pH 6.0 Bedside Urine Protein - Negative Bedside Urine Urobilinogen - Negative Bedside Urine Nitrite - Negative Bedside Urine Leukocytes +/- 15 Esterase Imaging Data CTA abd/pelvis: Radiologist's Impression: [address] [address] [address] Scan Report Signed Patient: Kristen Caslte MR#: [id number] : 1960 Acct:[id number] Age/Sex: 64 / F Date of Service: 08/19/24 Loc: ED Accession Number: [id number] Procedure: CT angio abdomen pelvis Ordering Provider: Bharath Reardon D.O. PROCEDURE: CT ANGIO ABDOMEN PELVIS INDICATIONS: Lower GI bleed, history rectal varices TECHNIQUE: After the administration of intravenous contrast, 2.5 mm sections acquired from the diaphragm to the iliac crests. 10 mm maximum intensity projection (MIP) coronal and sagittal reformats were then performed. For radiation dose reduction, the following was used: automated exposure control. COMPARISON: [facility], CT, CT ABDOMEN PELVIS W CON, 02/19/2024, 20:13. FINDINGS: Image quality: Diagnostic. Abdominal aorta: No aortic aneurysm or evidence of acute aortic syndrome. Mesenteric arteries: Patent without hemodynamically significant stenosis. Renal arteries: Patent without hemodynamically significant stenosis. Veins: Moderately-sized perirectal varices. Small periesophageal varices. Portal veins are patent. Lower chest: Unremarkable. ABDOMEN: Liver: No solid mass. Nodular liver surface is consistent with cirrhosis. Small nonenhancing lesion in the right hepatic lobe is most likely a cyst. No suspicious enhancing mass identified. Gallbladder: Status post cholecystectomy. Biliary ducts: No biliary dilation. Pancreas: No ductal dilation. Coarse calcifications are seen in the pancreas. Spleen: Mild splenomegaly measuring up to 13.6 cm in craniocaudal dimension.. Adrenal Glands: No adrenal nodules. Kidneys and Ureters: No hydronephrosis. No solid mass. No complex renal cystic lesion which requires follow up. 3 mm nonobstructing left renal calculus. Stomach and Bowel: Hyperdense material is seen in the gastric lumen on precontrast images. No extravasation of contrast material into the bowel lumen is seen. Peritoneum: No abnormal intraperitoneal fluid. No free air. Ventral Wall: No hernia. Abdominal Nodes: No retroperitoneal or mesenteric adenopathy by size criteria. Vessels: Aorta, as above. Normal IVC. PELVIS: Pelvic Organs: Unremarkable. Bladder: Unremarkable. Pelvic Nodes: No enlarged lymph nodes. Miscellaneous: No inguinal hernias are seen. Bones: No aggressive osseous abnormality. IMPRESSION: 1. No acute arterial abnormality is seen in the abdomen or pelvis. Prominent rectal varices and small periesophageal varices. No extravasation contrast material into the bowel lumen is seen. 2. Hepatic cirrhosis. 3. Mild splenomegaly. Portal vein is patent. ECG Data Interpretation: EKG interpreted ED physician sinus 80 beats per minute, QTC [address] changes no STEMI MDM Narrative Medical decision making narrative: Patient is a 64-year-old female history of cirrhosis esophageal varices hemorrhoids hyperlipidemia GERD comes into the ED from her primary care doctor's office for anemia in the setting of lower GI bleed. She states that she is supposed to have a procedure done by her colorectal surgeon at the end of this month however she noticed more bright red blood today and over the past few days which prompted her to go to her primary care doctor's office. Patient had an episode of bright red blood to the commode here in the emergency department with clot. This did tamponade by itself. CTA abdomen and pelvis showing esophageal varices as well as for rectal varices no extra have noted. Given patient's history of cirrhosis anemia as well as varices patient will require transfer to higher level care where possible tips procedure can be performed. Patient will be given 1 unit PRBC here for hypotension however patient not requiring massive transfusion at this time. Lab work reviewed, patient's hemoglobin 8.3, previously 9.6 on 08/12/2024, however patient chronically anemic baseline in the 10s. 2324: Discussed case with Dr. Mondragon of General surgery, who agrees that patient should receive unit of PRBC given the fact that patient has history of cirrhosis with esophageal varices both perirectal and esophageal he recommends patient be transferred to a facility with both GI IR capabilities for possible interventions. 2339: Risks benefits were performed with the patient in regards to administration of PRBC understands agrees 1 unit PRBC ordered 2345: Received phone call from blood bank stating patient has unique antibodies therefore it will take time to receive the PRBC 2358: Had a discussion with Dr. Vasquez of GI at [facility] who states that given patient's findings and symptoms will require transfer to a place with tips procedure can be performed, states [facility] does not have the capabilities of this we will reach out to surrounding hospitals for transfer 0123: Had discussion with hospitalist at [facility] Dr. Saucedo, agrees patient needs to be transferred to step-down unit but is requesting discussion with GI for possible tips procedure versus other acute interventions 0150: Had discussion with the GI doctor Dr. Cardoso, who agrees patient should be transferred over for possible tips procedure, agrees with current workup no other acute intervention recommendations, transfer center updated and we will call back with Dr. Saucedo for confirmation for admission 0255: Called back transfer hotline to verify patient has been accepted by Dr. Saucedo at [facility], most likely bed availability after 7am. 0325: Informed that patient has PRBCs here we will initiate transfusion at this time Discharge Plan Departure Patient Disposition: [facility] Clinical Impression: Acute lower gastrointestinal bleeding, Thrombocytopenia, Esophageal varices, Rectal varices, Anemia Prescriptions: No Action omeprazole 40 mg capsule,delayed release(DR/EC) 40 mg PO DAILY omega 9-rxa-jba-fish oil [Fish Oil] 300-1,000 mg capsule 1 cap PO DAILY spironolactone 50 mg tablet 50 mg PO DAILY Qty: 90 3RF furosemide 20 mg tablet 40 mg PO QAM Qty: 60 3RF Rx Instructions: Take 1 extra tab of 20mg (total 40mg) daily liothyronine 5 mcg tablet 10 mcg PO DAILY Qty: 180 3RF nadolol 20 mg tablet 30 mg PO DAILY Qty: 135 3RF Rx Instructions: takes at about 1500 Qday levothyroxine 100 mcg capsule 100 mcg PO DAILY Qty: 90 3RF ,calc.28-[id number] 1 27-1 mg tablet 1 tab PO DAILY Qty: 90 3RF Rx Instructions: Take 1 tab daily for anemia pregabalin 75 mg capsule 75 mg PO TID Qty: 90 3RF hydromorphone [Dilaudid] 2 mg tablet 2 mg PO Q6H Qty: 30 0RF lorazepam 0.5 mg tablet 0.5 mg PO BEDTIME PRN (Reason: sleep) Qty: 30 2RF lactulose 10 gram/15 mL solution 15 ml PO BID PRN (Reason: per patient discretion) Patient Comments: Take 30mL daily if pt does not have 3 BMs per day Rx Instructions: patient holds medication with diarrhea Xifaxan 550 mg tablet 550 mg PO BID magnesium oxide 500 mg magnesium tablet 500 mg PO DAILY Qty: 30 3RF sucralfate [Carafate] 1 gram tablet 1 g PO BID Qty: 180 3RF ondansetron 4 mg tablet,disintegrating 4 mg PO Q8H PRN (Reason: nausea and vomiting) Qty: 30 1RF dicyclomine 10 mg capsule 10 mg PO QID PRN (Reason: abdominal pain) Qty: 14 0RF Referrals: John Powers MD [Primary Care Provider] -
--- NOTE | 2024-08-19 20:55 | DI.CT.S_ITS ---
PROCEDURE: CT ANGIO ABDOMEN PELVIS INDICATIONS: Lower GI bleed, history rectal varices TECHNIQUE: After the administration of intravenous contrast, 2.5 mm sections acquired from the diaphragm to the iliac crests. 10 mm maximum intensity projection (MIP) coronal and sagittal reformats were then performed. For radiation dose reduction, the following was used: automated exposure control. COMPARISON: [facility], CT, CT ABDOMEN PELVIS W CON, 02/19/2024, 20:13. FINDINGS: Image quality: Diagnostic. Abdominal aorta: No aortic aneurysm or evidence of acute aortic syndrome. Mesenteric arteries: Patent without hemodynamically significant stenosis. Renal arteries: Patent without hemodynamically significant stenosis. Veins: Moderately-sized perirectal varices. Small periesophageal varices. Portal veins are patent. Lower chest: Unremarkable. ABDOMEN: Liver: No solid mass. Nodular liver surface is consistent with cirrhosis. Small nonenhancing lesion in the right hepatic lobe is most likely a cyst. No suspicious enhancing mass identified. Gallbladder: Status post cholecystectomy. Biliary ducts: No biliary dilation. Pancreas: No ductal dilation. Coarse calcifications are seen in the pancreas. Spleen: Mild splenomegaly measuring up to 13.6 cm in craniocaudal dimension.. Adrenal Glands: No adrenal nodules. Kidneys and Ureters: No hydronephrosis. No solid mass. No complex renal cystic lesion which requires follow up. 3 mm nonobstructing left renal calculus. Stomach and Bowel: Hyperdense material is seen in the gastric lumen on precontrast images. No extravasation of contrast material into the bowel lumen is seen. Peritoneum: No abnormal intraperitoneal fluid. No free air. Ventral Wall: No hernia. Abdominal Nodes: No retroperitoneal or mesenteric adenopathy by size criteria. Vessels: Aorta, as above. Normal IVC. PELVIS: Pelvic Organs: Unremarkable. Bladder: Unremarkable. Pelvic Nodes: No enlarged lymph nodes. Miscellaneous: No inguinal hernias are seen. Bones: No aggressive osseous abnormality. IMPRESSION: 1. No acute arterial abnormality is seen in the abdomen or pelvis. Prominent rectal varices and small periesophageal varices. No extravasation contrast material into the bowel lumen is seen. 2. Hepatic cirrhosis. 3. Mild splenomegaly. Portal vein is patent. Approved by: López Cohn M.D. on 08/19/2024 at 22:16
--- NOTE | 2024-08-19 23:14 | PC.NURSE ---
Dr. Reardon aware of hypotension, patient is alert and asymptomatic, sitting up in bed. No current distress or complaints.
--- NOTE | 2024-08-19 23:52 | PC.NURSE ---
Patient has a history of antibodies in blood, blood bank is screening the blood in house to see if it is compatible with the patient. Patient and doctor Caron guerra.
[2024-08-20] VITALS (21 sets, daily range): BP systolic 81–102; BP diastolic 50–57; PULSE 72–82; RESP 14–29; TEMP 36.4–36.6; O2SAT 94–99
--- NOTE | 2024-08-20 00:48 | PC.NURSE ---
patient requesting water, NPO per Dr. Reardon, patient informed and aware.
[2024-08-20 01:17] LABS: Bacteria Urine None Seen; Culture Indicated Urine Cult Not Indicated; RBC Urine 0-1/HPF (0-5/HPF); Squamous Epithelial Cell Urine 0-1 /HPF (0-5/HPF); Urine Volume 10mL (spun); WBC Urine None Seen (0-5/HPF)
--- NOTE | 2024-08-20 06:21 | PC.NURSE ---
Report called to Kristen MCMILLAN at [phone] [id number]
--- NOTE | 2024-08-20 07:04 | PC.NURSE ---
Care transferred to [facility] ALS transport team
== END 2024-08-20 07:13 | disposition short-term general hospital (02) ==
PROVIDERS: Emergency Medicine; Emergency Provider Student in an Organized Health Care Education/Training Program; Family Provider Family Medicine; PCP Family Medicine
DX: K92.2 Gastrointestinal hemorrhage, unspecified (principal); D69.6 Thrombocytopenia, unspecified; I85.00 Esophageal varices without bleeding; K64.9 Unspecified hemorrhoids; D64.9 Anemia, unspecified
CPT/HCPCS: 36415; 36430; 74174; 80053; 81003; 81015; 85025; 85610; 85730; 86850; 86900; 86901; 93005; 99285; P9016; Q9967

== ENCOUNTER → 2024-08-26 10:37 | Outpatient (CLI) | payer OTHER, SELFPAY ==
[2024-07-04 10:20] VITALS: BMI 21.4
[2024-08-26 12:08] LABS: Hematocrit 32.5 % (36-46); Hemoglobin 10.7 g/dL (12.0-16.0); Mean Corpuscular HGB Conc 32.8 % (30-36); Mean Corpuscular Hemoglobin 28.1 PG (26-34); Mean Corpuscular Volume 85.5 fL (80-100); Platelet Count 76 X10^3/uL (150-400); Red Cell Distribution Width 16.4 % (11.6-14.8); White Blood Cell Count 3.8 X10^3/uL (4.5-11.0)
[2024-08-26 12:22] LABS: Neutrophils Absolute Manual 2622 /uL (3000-5900); Total Cells Counted 100
[2024-08-26 12:23] LABS: Rouleaux 1+
[2024-08-26 12:28] LABS: INR 1.3 (0.9-1.3); Prothrombin Time 14.5 SECONDS (9.4-12.5)
[2024-08-26 12:31] LABS: PTT Partial Thromboplastin Tim 38 SECONDS (25.1-36.5)
[2024-08-26 12:35] LABS: Alanine Aminotransferase 48 IU/L (<35); Albumin 3.6 g/dL (3.5-5.0); Albumin Globulin Ratio 1.2 (1.0-2.8); Alkaline Phosphatase 68 U/L (38-126); Aspartate Aminotransferase 94 IU/L (14-36); BUN Creatinine Ratio 15.8 (6-22); Bilirubin Total 1.1 mg/dL (0.2-1.3); Blood Urea Nitrogen 12 mg/dL (7-17); Calcium 9.2 mg/dL (8.4-10.2); Carbon Dioxide 21 mmol/L (22-32); Chloride 107 mmol/L (98-107); Estimated Glomerular Filt Rate > 60 mL/min (>60); Globulin 3.1 g/dL (1.7-4.1); Glucose 100 mg/dL (80-110); HEMOLYSIS < 15 (0-50); Potassium 3.4 mmol/L (3.4-5.1); Sodium 140 mmol/L (137-145); Total Protein 6.7 g/dL (6.3-8.2)
== END ==
PROVIDERS: Family Provider Family Medicine; PCP Family Medicine; Referring Provider Family Medicine; Visit Provider Family Medicine
DX: K92.2 Gastrointestinal hemorrhage, unspecified (principal); D64.9 Anemia, unspecified; D69.6 Thrombocytopenia, unspecified; D61.818 Other pancytopenia
CPT/HCPCS: 36415; 80053; 85025; 85610; 85730

== ENCOUNTER 2024-08-31 11:30 | Outpatient (RCR) | payer OTHER, SELFPAY ==
[2024-07-04 10:20] VITALS: BMI 21.4
--- NOTE | 2024-08-02 17:13 | PT.OIE ---
Current Diagnoses Unspecified kyphosis, thoracic region (08/02/24) Dorsopathy, unspecified (08/02/24) Muscle weakness (generalized) (08/02/24) Muscle spasm of back (08/02/24) Past Medical History (Last Reviewed 05/18/24 @ 05:47 by Tima Nelson DO) Alcohol use disorder, severe, in early remission Alcoholic cirrhosis Anemia due to blood loss, acute Anemia, blood loss Anemia, macrocytic Anxiety Ascites due to alcoholic cirrhosis Back pain Bleeding internal hemorrhoids Cardiac arrhythmia Chicken pox Cirrhosis (2012) Coagulation disorder (2012) Depression Eczema (2014) EV (esophageal varices) (10/2015) GERD (gastroesophageal reflux disease) GI bleeding (2015) Hematemesis of fresh blood Hemorrhoids, internal History of alcohol abuse (12/27/15) History of blood transfusion (10/2015) History of heavy periods (2014) Hypercalcemia Hypertension Hypothyroidism Intermittent palpitations (04/2019) Measles Multilevel spondylosis Mumps Nonalcoholic fatty liver disease Ovarian cyst (2012) Painful menstrual periods (2012) Pancreatic lesion (~04/18/23) Pancreatitis Pancytopenia Portal hypertensive gastropathy (05/2015) Psoriasis (2014) PTSD (post-traumatic stress disorder) (1999) SBO (small bowel obstruction) Shortness of breath Stomach ulcer Stroke Thrombocytopenia Weakness of left upper extremity Weight gain Past Surgical History (Last Reviewed 03/23/24 @ 08:43 by HARJEET John) H/O bilateral oophorectomy History of appendectomy History of cholecystectomy History of esophagogastroduodenoscopy (EGD) (01/2009) History of esophagogastroduodenoscopy (EGD) (05/2015) History of inguinal hernia repair Status post appendectomy Status post colonoscopy (01/2009) Status post hernia repair Status post hysteroscopy (06/17/11) Status post laparoscopic supracervical hysterectomy (08/25/16) Visit Care Team Role Provider Type John Powers MD Family Provider Physician Primary Care Provider Specialty: [facility] Practice Address: [address] [place] [address], [id number] Email: [email or web address] Timothy Caal DO Attending Provider Physician Referring Provider Specialty: [facility] Practice Address: [address] [place] [address], [id number] Email: Physical Therapy Initial Evaluation PT-OP-A Visit Information Start: 08/02/24 08:18 Freq: Status: Active Protocol: Document 08/02/24 08:15 [facility] (Rec: 08/02/24 16:38 [facility] [id number]) Out-Patient Physical Therapy Visit Information Visit Information Visit Type Initial Evaluation Visit Start Time 08:15 Visit Stop Time 09:00 Visit Number 1 Evaluation Information Evaluation Date 08/02/24 PT-OP-B Current Condition Start: 08/02/24 08:18 Freq: Status: Active Protocol: Document 08/02/24 08:15 [facility] (Rec: 08/02/24 09:01 [facility] [id number]) Current Condition History of Current Condition Onset Date 1 month ago Current Complaints Right greater than left sided lumbar paraspinal muscle spasms History of Current Condition pt reports she has a history of muscles spasms in her back. This last time around is the third time it has happened . It is usually associated with holding her grand kids. She is pretty active working around her house and gardening and that hasn't brought it on. The grand kids are 4 and 6 and a 1 year old. The last episode was approx one month ago. Her pain started after visiting with the kids. She notes she carries the 1 year old and it is with carrying him that she will start to feel her back spasm. She notes this last episode started slow and then progressed to the point where she had to go to the ER. The pain is in her kidney area and it started on her right side and then progressed to her left. SHe was given pain meds on dilauted but she has been off a couple of weeks . She is just scared to lift her grandkids again to trigger it. When pain is bad she has to just lay down. When she holds her 1 year old she holds him on the left side. She has not lifted her grand son since this past episode. At this point the pain has calmed down some but she is afraid of it returning. Prior Treatments and Tests past medical history of liver disease x 12 years and she reports it is end stage, she has pancreatitis, severe bleeding in her colon and esphogeal irritation Treatment Goals Patient/Caregiver Goals treatment goals include learning exercises she can do to be able to hold her 1 year old grandson without pain PT-OP-C Subjective Start: 08/02/24 17:03 Freq: Status: Active Protocol: Document 08/02/24 08:15 [facility] (Rec: 08/02/24 17:05 [facility] [id number]) Patient Questionnaires Oswestry Low Back Index Oswestry Score 30 Oswestry Impairment 20 to 39% Impaired (Score 20- 39) OP-PT Pain Assessment Pain Assessment Grid Paper Pain Assessment Grid Completed Yes Location lumbar paraspinals Pain Location Details bilateral lumbar paraspinals Intensity 4 Scale Used Numeric (0 - 10) PT-OP-F Manual Assessment Start: 08/02/24 08:18 Freq: Status: Active Protocol: Document 08/02/24 08:19 [facility] (Rec: 08/02/24 09:01 [facility] [id number]) Manual Assessments Soft Tissue Assessment Soft Tissue Mobility Assessment right greater than left lumbar muscle spasm and guarding Joint Mobility Assessment Joint Mobility Assessment decreased thoracic spine mobility into extension, Decreased PA glides of T2-T10 thoracic kyphosis PT-OP-J Posture/Palpation/Skin Start: 08/02/24 08:18 Freq: Status: Active Protocol: Document 08/02/24 08:15 [facility] (Rec: 08/02/24 16:40 [facility] [id number]) Posture Evaluation Comments Posture Comments forward head and shoulder posture, decreased ability to lift arms over head due to throacic hypomobility, increased lumbar extension with overhead reach Palpation Assessment Location Lumbar parapsinals Palpation Findings Soft Tissue Tightness,Muscle Guarding,Tenderness Palpation Details Right greater than left lumbar paraspinals PT-OP-K Range of Motion Start: 08/02/24 16:38 Freq: Status: Active Protocol: Document 08/02/24 08:15 [facility] (Rec: 08/02/24 16:44 [facility] [id number]) Lumbar Spine Range of Motion Lumbar Spine Active Testing Position Standing Extension 5 Lateral Flexion Left 8 Lateral Flexion Right 10 ROM Limitations Soft Tissue Tightness,Pain Comments pain with increased lumbar extension, decreased paraspinal mobility restricts sidebending decreased thoracic extension PT-OP-M Strength Start: 08/02/24 08:18 Freq: Status: Active Protocol: Document 08/02/24 08:15 [facility] (Rec: 08/02/24 16:44 [facility] [id number]) Trunk Strength Trunk Manual Muscle Testing Testing Position Supine Flexion 2+ Poor+ Extension 3 Fair Core Stabilization poor TA activation and decreased core stability PT-OP-Q Treatments Start: 08/02/24 08:18 Freq: Status: Active Protocol: Document 08/02/24 08:19 [facility] (Rec: 08/02/24 09:01 [facility] [id number]) Therapeutic Exercises Sitting Exercises seated side bends Reps/Minutes 5 reps holding 10 seconds Other Exercises noelle pose Side bilateral Reps/Minutes hold 30 sec center then left and right each x 30 sec thread the needles Reps/Minutes x 5 reps each side wag the tail Other Exercise Name from quadruped Reps/Minutes x 5 each side cat cow Reps/Minutes x 10 reps PT-OP-T Assessment and Plan Start: 08/02/24 08:18 Freq: Status: Active Protocol: Document 08/02/24 08:15 [facility] (Rec: 08/02/24 16:47 [facility] [id number]) Physical Therapy Assessment Rehab Potential Rehabilitation Potential Excellent Evaluation Complexity Number of Personal Factors/Comorbidities 3 or More Number of Body Systems Impaired 3 Clinical Presentation at Evaluation Evolving Impairments Impairments Activity Tolerance,Functional Activities,Functional Mobility ,Pain,Posture,Soft Tissue Mobility,Strength,Tone Goals 4 Impairment decreased thoracic and lumbar ROM Short Term Goal (STG) Ani is able to tolerate spinal mobility exercises and is able to raise arms over head without increased lumbar exension STG Duration 4 weeks Half-Way Goal (LTG) Ani presents with improvements in lumbar and thoracic ROM LTG Duration 8 weeks 3 Impairment muscle guarding and spams of the lumbar paraspinal muscles with tenderness to palpation Nursing Faculty Goal (LTG) Ani presents with improved mobility of the lumbar paraspinals and she is no longer tender and guarded to palpation LTG Duration 8 weeks 2 Impairment Ani lacks a home program for both spinal mobility and core strength Nursing Faculty Goal (LTG) Ani is independent with a HEP for both core strength and improved spinal mobility LTG Duration 8 weeks 1 Impairment pain that is currently 4/10 but that increases when lifting and carrying her grandkids Half-Way Goal (LTG) Ani reports a overall reduction in pain and she is able to return to holding her 1 year old grandson for 10 min at a time LTG Duration 8 weeks Assessment Summary Assessment Ani is a 64 year old female referred to PT today with history of severe muscle spasms in the lumbar paraspinals. She reports the last episode of muscle spasms occured approx 1 month ago. She notes she often takes care of her grandkids and needs to be able to carry the 1 year old. She reports after taking care of the kids her pain started out on the right side and then spread to the left side. The pain progressed to the point that she needed to go to the ER. With dilauted she has been able to decrease the intense pain and she rates her pain at a 4/10 today. She has not taken care of her grandkids since this episode but she would like to be able to return to taking care of them when needed. With evaluation today Ani is guarded and tight in the lumbar paraspinals R>L. She has a thoracic kyphosis and hypomobility of the thoracic spine. With overhead shoulder flexion she has to extend through her lumbar spine and this increases pain. She is limited with lumbar sidebending and flexion. Ani has liver disease and is swollen throughout her abdomen . She present with decreased core strength. I started her today with gentle thoracic and lumbar ROM exercises and she tolerated these well. She is a good candidate for PT. Physical Therapy Plan Frequency and Duration Frequency of Treatment 1x/Week Duration of treatment (weeks) 8 Plan of Care Start Date 08/02/24 Plan of Care End Date 09/27/24 Therapeutic Interventions Therapeutic Interventions Home Exercise Program,Manual Therapy,Patient/Caregiver Education,Self-Care/Home Management,Soft Tissue Mobilization,Therapeutic Exercises Next Visit Focus/Plan Next Note Type Treatment Note Next Visit Plan review stretches given today for next visit, begin 1/2 foam roll stretch to open up the anterior chest and improve thoracic mobility into extension, begin standing shoulder rows and thoracic extension
--- NOTE | 2024-08-02 17:14 | PT.OPPOC ---
Physical, Occupational & Speech Therapy At [facility] Current Diagnoses Unspecified kyphosis, thoracic region (08/02/24) Dorsopathy, unspecified (08/02/24) Muscle weakness (generalized) (08/02/24) Muscle spasm of back (08/02/24) Visit Care Team Role Provider Type John Powers MD Family Provider Physician Primary Care Provider Specialty: [facility] Practice Address: [address] [place] [address], [id number] Email: [email or web address] Timothy Caal DO Attending Provider Physician Referring Provider Specialty: [facility] Address: [address] [place] [address], [id number] Email: Plan Of Care PT-OP-B Current Condition Start: 08/02/24 08:18 Freq: Status: Active Protocol: Document 08/02/24 08:15 [facility] (Rec: 08/02/24 09:01 [facility] [id number]) Current Condition History of Current Condition Onset Date 1 month ago Current Complaints Right greater than left sided lumbar paraspinal muscle spasms History of Current Condition pt reports she has a history of muscles spasms in her back. This last time around is the third time it has happened . It is usually associated with holding her grand kids. She is pretty active working around her house and gardening and that hasn't brought it on. The grand kids are 4 and 6 and a 1 year old. The last episode was approx one month ago. Her pain started after visiting with the kids. She notes she carries the 1 year old and it is with carrying him that she will start to feel her back spasm. She notes this last episode started slow and then progressed to the point where she had to go to the ER. The pain is in her kidney area and it started on her right side and then progressed to her left. SHe was given pain meds on dilauted but she has been off a couple of weeks . She is just scared to lift her grandkids again to trigger it. When pain is bad she has to just lay down. When she holds her 1 year old she holds him on the left side. She has not lifted her grand son since this past episode. At this point the pain has calmed down some but she is afraid of it returning. Prior Treatments and Tests past medical history of liver disease x 12 years and she reports it is end stage, she has pancreatitis, severe bleeding in her colon and esophageal irritation Treatment Goals Patient/Caregiver Goals treatment goals include learning exercises she can do to be able to hold her 1 year old grandson without pain PT-OP-T Assessment and Plan Start: 08/02/24 08:18 Freq: Status: Active Protocol: Document 08/02/24 08:15 [facility] (Rec: 08/02/24 16:47 [facility] [id number]) Physical Therapy Assessment Rehab Potential Rehabilitation Potential Excellent Evaluation Complexity Number of Personal Factors/Comorbidities 3 or More Number of Body Systems Impaired 3 Clinical Presentation at Evaluation Evolving Impairments Impairments Activity Tolerance,Functional Activities,Functional Mobility ,Pain,Posture,Soft Tissue Mobility,Strength,Tone Goals 4 Impairment decreased thoracic and lumbar ROM Short Term Goal (STG) Ani is able to tolerate spinal mobility exercises and is able to raise arms over head without increased lumbar extension STG Duration 4 weeks Fpc Goal (LTG) Ani presents with improvements in lumbar and thoracic ROM LTG Duration 8 weeks 3 Impairment muscle guarding and spams of the lumbar paraspinal muscles with tenderness to palpation Fpc Goal (LTG) Ani presents with improved mobility of the lumbar paraspinals and she is no longer tender and guarded to palpation LTG Duration 8 weeks 2 Impairment Ani lacks a home program for both spinal mobility and core strength Fpc Goal (LTG) Ani is independent with a HEP for both core strength and improved spinal mobility LTG Duration 8 weeks 1 Impairment pain that is currently 4/10 but that increases when lifting and carrying her grandkids Swimming Pool Service Technician Goal (LTG) Ani reports a overall reduction in pain and she is able to return to holding her 1 year old grandson for 10 min at a time LTG Duration 8 weeks Assessment Summary Assessment Ani is a 64 year old female referred to PT today with history of severe muscle spasms in the lumbar paraspinals. She reports the last episode of muscle spasms occurred approx 1 month ago. She notes she often takes care of her grandkids and needs to be able to carry the 1 year old. She reports after taking care of the kids her pain started out on the right side and then spread to the left side. The pain progressed to the point that she needed to go to the ER. With dilauted she has been able to decrease the intense pain and she rates her pain at a 4/10 today. She has not taken care of her grandkids since this episode but she would like to be able to return to taking care of them when needed. With evaluation today Ani is guarded and tight in the lumbar paraspinals R>L. She has a thoracic kyphosis and hypomobility of the thoracic spine. With overhead shoulder flexion she has to extend through her lumbar spine and this increases pain. She is limited with lumbar sidebending and flexion. Ani has liver disease and is swollen throughout her abdomen . She present with decreased core strength. I started her today with gentle thoracic and lumbar ROM exercises and she tolerated these well. She is a good candidate for PT. Physical Therapy Plan Frequency and Duration Frequency of Treatment 1x/Week Duration of treatment (weeks) 8 Plan of Care Start Date 08/02/24 Plan of Care End Date 09/27/24 Therapeutic Interventions Therapeutic Interventions Home Exercise Program,Manual Therapy,Patient/Caregiver Education,Self-Care/Home Management,Soft Tissue Mobilization,Therapeutic Exercises Next Visit Focus/Plan Next Note Type Treatment Note Next Visit Plan review stretches given today for next visit, begin 1/2 foam roll stretch to open up the anterior chest and improve thoracic mobility into extension, begin standing shoulder rows and thoracic extension Plan of Care Dates Plan of Care Start Date 08/02/24 Plan of Care End Date 09/27/24 Electronically Signed by: Teresa Wright, PT 08/02/24 [id number] If you are in agreement with this Plan of Care, please return a signed and dated copy. I have reviewed this Plan of Care and certify that the skilled therapy services above are required to meet the patient?s needs. Physician Signature Date Printed Name and Credentials Clinical Instructor Signature Printed Name and Credentials
--- NOTE | 2024-08-09 10:46 | PT.OTN ---
Current Diagnoses Unspecified kyphosis, thoracic region (08/09/24) Dorsopathy, unspecified (08/09/24) Muscle weakness (generalized) (08/09/24) Muscle spasm of back (08/09/24) Physical Therapy Treatment Note PT-OP-A Visit Information Start: 08/02/24 08:18 Freq: Status: Active Protocol: Document 08/09/24 08:11 AB (Rec: 08/09/24 10:44 AB [id number]) Out-Patient Physical Therapy Visit Information Visit Information Visit Type Treatment Note Visit Start Time 08:15 Visit Stop Time 09:03 Visit Number 2 Number of AIR CONDITIONING SPECIALIST Visits 1 PT-OP-B Current Condition Start: 08/02/24 08:18 Freq: Status: Active Protocol: Document 08/02/24 08:15 AMH (Rec: 08/02/24 09:01 AMH [id number]) Current Condition History of Current Condition Onset Date 1 month ago Current Complaints Right greater than left sided lumbar paraspinal muscle spasms History of Current Condition pt reports she has a history of muscles spasms in her back. This last time around is the third time it has happened . It is usually associated with holding her grand kids. She is pretty active working around her house and gardening and that hasn't brought it on. The grand kids are 4 and 6 and a 1 year old. The last episode was approx one month ago. Her pain started after visiting with the kids. She notes she carries the 1 year old and it is with carrying him that she will start to feel her back spasm. She notes this last episode started slow and then progressed to the point where she had to go to the ER. The pain is in her kidney area and it started on her right side and then progressed to her left. SHe was given pain meds on dilauted but she has been off a couple of weeks . She is just scared to lift her grandkids again to trigger it. When pain is bad she has to just lay down. When she holds her 1 year old she holds him on the left side. She has not lifted her grand son since this past episode. At this point the pain has calmed down some but she is afraid of it returning. 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 Patient comments the exercises are going great, comments had a 6 hour session gardening out side Thursday, without being triggered. PT-OP-F Manual Assessment Start: 08/02/24 08:18 Freq: Status: Active Protocol: Document 08/02/24 08:19 AMH (Rec: 08/02/24 09:01 AMH [id number]) Manual Assessments Soft Tissue Assessment Soft Tissue Mobility Assessment right greater than left lumbar muscle spasm and guarding Joint Mobility Assessment Joint Mobility Assessment decreased thoracic spine mobility into extension, Decreased PA glides of T2-T10 thoracic kyphosis PT-OP-J Posture/Palpation/Skin Start: 08/02/24 08:18 Freq: Status: Active Protocol: Document 08/02/24 08:15 AMH (Rec: 08/02/24 16:40 AMH [id number]) Posture Evaluation Comments Posture Comments forward head and shoulder posture, decreased ability to lift arms over head due to throacic hypomobility, increased lumbar extension with overhead reach Palpation Assessment Location Lumbar parapsinals Palpation Findings Soft Tissue Tightness,Muscle Guarding,Tenderness Palpation Details Right greater than left lumbar paraspinals PT-OP-K Range of Motion Start: 08/02/24 16:38 Freq: Status: Active Protocol: Document 08/02/24 08:15 AMH (Rec: 08/02/24 16:44 AMH [id number]) Lumbar Spine Range of Motion Lumbar Spine Active Testing Position Standing Extension 5 Lateral Flexion Left 8 Lateral Flexion Right 10 ROM Limitations Soft Tissue Tightness,Pain Comments pain with increased lumbar extension, decreased paraspinal mobility restricts sidebending decreased thoracic extension PT-OP-M Strength Start: 08/02/24 08:18 Freq: Status: Active Protocol: Document 08/02/24 08:15 AMH (Rec: 08/02/24 16:44 AMH [id number]) Trunk Strength Trunk Manual Muscle Testing Testing Position Supine Flexion 2+ Poor+ Extension 3 Fair Core Stabilization poor TA activation and decreased core stability PT-OP-Q Treatments Start: 08/02/24 08:18 Freq: Status: Active Protocol: Document 08/09/24 08:11 AB (Rec: 08/09/24 10:44 AB [id number]) Therapeutic Exercises Supine Exercises 1/2 foam roller Supine Exercise Name pec stretch Reps/Minutes 2 min Comments verbal cues for UE position piriformis stretch Supine Exercise Name HEP Side bilateral Reps/Minutes 60 sec X 2 each LE Comments verbal cues Sitting Exercises seated side bends Reps/Minutes 5 reps holding 10 seconds Other Exercises noelle pose Side bilateral Reps/Minutes hold 30 sec center then left and right each X2 x 30 sec Comments verbal cues for breathing from diaprhagm thread the needles Reps/Minutes x 5 reps each side Comments Verbal cues to perform to julio up to X 10 wag the tail Other Exercise Name from quadruped Reps/Minutes x 5 each side cat cow Reps/Minutes x 10 reps Comments Verbal cues for LE post knees under hips, and hand pressure+ thenar hyp + Manual Therapy Treatment Consent Patient gave verbal consent for manual Yes treatment Soft Tissue Mobilization Lumbar/thoracic paraspinals Body Location L Mobilization Type Sustained Pressure Intensity/Depth Moderate Body Position Sidelying hips Body Location glute piriformis L Mobilization Type Cross-Friction,Rolling Intensity/Depth Moderate Body Position Sidelying Manual Techniques MET for L AI right PI Type and pubic shotgun Reps/Duration 6 X 6 sec each PT-OP-T Assessment and Plan Start: 08/02/24 08:18 Freq: Status: Active Protocol: Document 08/09/24 08:11 AB (Rec: 08/09/24 10:44 AB [id number]) Physical Therapy Assessment Goals 4 Impairment decreased thoracic and lumbar ROM Short Term Goal (STG) Ani is able to tolerate spinal mobility exercises and is able to raise arms over head without increased lumbar exension STG Duration 4 weeks Clinical Informatics Spec Goal (LTG) Ani presents with improvements in lumbar and thoracic ROM LTG Duration 8 weeks 3 Impairment muscle guarding and spams of the lumbar paraspinal muscles with tenderness to palpation Penitentiary Goal (LTG) Ani presents with improved mobility of the lumbar paraspinals and she is no longer tender and guarded to palpation LTG Duration 8 weeks 2 Impairment Ani lacks a home program for both spinal mobility and core strength Clinical Informatics Spec Goal (LTG) Ani is independent with a HEP for both core strength and improved spinal mobility LTG Duration 8 weeks 1 Impairment pain that is currently 4/10 but that increases when lifting and carrying her grandkids Penitentiary Goal (LTG) Ani reports a overall reduction in pain and she is able to return to holding her 1 year old grandson for 10 min at a time LTG Duration 8 weeks Assessment Summary Assessment Patient reports feeling straighter end of session. Physical Therapy Plan Frequency and Duration Frequency of Treatment 1x/Week Duration of treatment (weeks) 8 Plan of Care Start Date 08/02/24 Plan of Care End Date 09/27/24 Next Visit Focus/Plan Next Note Type Treatment Note Next Visit Plan review begin 1/2 foam roll stretch to open up the anterior chest and improve thoracic mobility into extension, Next session.begin standing shoulder rows and thoracic extension
--- NOTE | 2024-08-31 16:24 | PT.OTN ---
Current Diagnoses Unspecified kyphosis, thoracic region (08/31/24) Dorsopathy, unspecified (08/31/24) Muscle weakness (generalized) (08/31/24) Muscle spasm of back (08/31/24) Physical Therapy Treatment Note PT-OP-A Visit Information Start: 08/02/24 08:18 Freq: Status: Active Protocol: Document 08/31/24 10:40 AB (Rec: 08/31/24 12:59 AB [id number]) Out-Patient Physical Therapy Visit Information Visit Information Visit Type Treatment Note Visit Start Time 11:34 Visit Stop Time 12:15 Visit Number 3 Number of [employer] PLUMBER Visits 2 PT-OP-B Current Condition Start: 08/02/24 08:18 Freq: Status: Active Protocol: Document 08/02/24 08:15 [facility] (Rec: 08/02/24 09:01 [facility]H [id number]) Current Condition History of Current Condition Onset Date 1 month ago Current Complaints Right greater than left sided lumbar paraspinal muscle spasms History of Current Condition pt reports she has a history of muscles spasms in her back. This last time around is the third time it has happened . It is usually associated with holding her grand kids. She is pretty active working around her house and gardening and that hasn't brought it on. The grand kids are 4 and 6 and a 1 year old. The last episode was approx one month ago. Her pain started after visiting with the kids. She notes she carries the 1 year old and it is with carrying him that she will start to feel her back spasm. She notes this last episode started slow and then progressed to the point where she had to go to the ER. The pain is in her kidney area and it started on her right side and then progressed to her left. SHe was given pain meds on dilauted but she has been off a couple of weeks . She is just scared to lift her grandkids again to trigger it. When pain is bad she has to just lay down. When she holds her 1 year old she holds him on the left side. She has not lifted her grand son since this past episode. At this point the pain has calmed down some but she is afraid of it returning. 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 Patient reports she was hospitalized for 5 days as she was bleeding and they couldn't get it under control. Patient reports she had appt with primary care on Thursday. Patient reports she has no restricions , comments back isn't hurting, but is stills squeaky, did some gardening today. PT-OP-F Manual Assessment Start: 08/02/24 08:18 Freq: Status: Active Protocol: Document 08/02/24 08:19 [facility] (Rec: 08/02/24 09:01 AM[facility] [id number]) Manual Assessments Soft Tissue Assessment Soft Tissue Mobility Assessment right greater than left lumbar muscle spasm and guarding Joint Mobility Assessment Joint Mobility Assessment decreased thoracic spine mobility into extension, Decreased PA glides of T2-T10 thoracic kyphosis PT-OP-J Posture/Palpation/Skin Start: 08/02/24 08:18 Freq: Status: Active Protocol: Document 08/31/24 10:40 AB (Rec: 08/31/24 16:24 AB [id number]) Palpation Assessment Location Lumbar parapsinals Palpation Location Lumbar and thoracic paraspinals, bilateral Palpation Findings None/Normal Palpation Details reports no pain with palpation PT-OP-K Range of Motion Start: 08/02/24 16:38 Freq: Status: Active Protocol: Document 08/31/24 10:40 AB (Rec: 08/31/24 16:24 AB [id number]) Lumbar Spine Range of Motion Lumbar Spine Active Testing Position Standing Flexion 95 Extension 60 Rotation Left 90 Rotation Right 100 Lateral Flexion Left 90 Lateral Flexion Right 90 Comments Thoracic 5% extension Rot L 80 % L 70% PT-OP-M Strength Start: 08/02/24 08:18 Freq: Status: Active Protocol: Document 08/02/24 08:15 AM[facility] (Rec: 08/02/24 16:44 AMH [id number]) Trunk Strength Trunk Manual Muscle Testing Testing Position Supine Flexion 2+ Poor+ Extension 3 Fair Core Stabilization poor TA activation and decreased core stability PT-OP-Q Treatments Start: 08/02/24 08:18 Freq: Status: Active Protocol: Document 08/31/24 10:40 AB (Rec: 08/31/24 12:59 AB [id number]) Therapeutic Exercises Supine Exercises piriformis stretch Supine Exercise Name HEP Side bilateral Reps/Minutes 60 sec X 2 each LE Comments verbal cues Sitting Exercises seated side bends Reps/Minutes 5 reps holding 10 seconds Other Exercises noelle pose Side bilateral Reps/Minutes 15 to 30 sec one round straight then Lat, initiated second round, Comments verbal cues for breathing from diaprhagm thread the needles Reps/Minutes x 5 reps each side Comments Verbal cues to perform to julio up to X 10 wag the tail Other Exercise Name from quadruped Reps/Minutes x 5 each side cat cow Other Exercise Name on forearms this session Reps/Minutes x 6 reps Comments Verbal cues PT-OP-T Assessment and Plan Start: 08/02/24 08:18 Freq: Status: Active Protocol: Document 08/31/24 10:40 AB (Rec: 08/31/24 12:59 AB [id number]) Physical Therapy Assessment Goals 4 Impairment decreased thoracic and lumbar ROM Short Term Goal (STG) Ani is able to tolerate spinal mobility exercises and is able to raise arms over head without increased lumbar exension STG Duration 4 weeks Supervising Airplane Pilot Goal (LTG) Ani presents with improvements in lumbar and thoracic ROM LTG Duration 8 weeks 3 Impairment muscle guarding and spams of the lumbar paraspinal muscles with tenderness to palpation Group Home Goal (LTG) Ani presents with improved mobility of the lumbar paraspinals and she is no longer tender and guarded to palpation 08/31/2024: no tenderness to lumbar or thoracic paraspinals bilaterally LTG Duration 8 weeks 2 Impairment Ani lacks a home program for both spinal mobility and core strength Group Home Goal (LTG) Ani is independent with a HEP for both core strength and improved spinal mobility 08/31/2024 Unable to perform HEP due to 5 days hospitalization, symptoms pre hospitalization limiting julio to exercise. LTG Duration 8 weeks 1 Impairment pain that is currently 4/10 but that increases when lifting and carrying her grandkids Group Home Goal (LTG) Ani reports a overall reduction in pain and she is able to return to holding her 1 year old grandson for 10 min at a time 08/31/2024 Not attempted due to recent hospitalization, but comments is able to carry multiple bags of groceries with no increased pain. LTG Duration 8 weeks Assessment Summary Assessment Patient reported feeling light headed and nauseaous during child's pose. PT 120/70 HR 70 L UE patient hooklying. Seated 120/71 HR 69 BPM Standin/66 HR 70, Patient reports no longer dizzy/light headed end of session. Of note patient to Gastro appt post this session. Physical Therapy Plan Frequency and Duration Frequency of Treatment 1x/Week Duration of treatment (weeks) 8 Plan of Care Start Date 08/02/24 Plan of Care End Date 09/27/24 Next Visit Focus/Plan Next Note Type Treatment Note Next Visit Plan review begin 1/2 foam roll stretch to open up the anterior chest and improve thoracic mobility into extension, Next session.begin standing shoulder rows and thoracic extension
--- NOTE | 2024-09-15 09:41 | PT.OPDS ---
Current Diagnoses Unspecified kyphosis, thoracic region (08/31/24) Dorsopathy, unspecified (08/31/24) Muscle weakness (generalized) (08/31/24) Muscle spasm of back (08/31/24) Visit Care Team Role Provider Type John Powers MD Family Provider Physician Primary Care Provider Specialty: [facility] Address: [address] [place] [address] Email: [email or web address] DO Attending Provider Physician Referring Provider Specialty: [facility] Address: [address] [place] [address], [facility] Email: Visit Number Visit Number 3 Discharge Summary PT-OP-B Current Condition Start: 08/02/24 08:18 Freq: Status: Active Protocol: Document 08/02/24 08:15 [facility] (Rec: 08/02/24 09:01 [facility] [id number]) Current Condition History of Current Condition Onset Date 1 month ago Current Complaints Right greater than left sided lumbar paraspinal muscle spasms History of Current Condition pt reports she has a history of muscles spasms in her back. This last time around is the third time it has happened . It is usually associated with holding her grand kids. She is pretty active working around her house and gardening and that hasn't brought it on. The grand kids are 4 and 6 and a 1 year old. The last episode was approx one month ago. Her pain started after visiting with the kids. She notes she carries the 1 year old and it is with carrying him that she will start to feel her back spasm. She notes this last episode started slow and then progressed to the point where she had to go to the ER. The pain is in her kidney area and it started on her right side and then progressed to her left. SHe was given pain meds on dilauted but she has been off a couple of weeks . She is just scared to lift her grandkids again to trigger it. When pain is bad she has to just lay down. When she holds her 1 year old she holds him on the left side. She has not lifted her grand son since this past episode. At this point the pain has calmed down some but she is afraid of it returning. Prior Treatments and Tests past medical history of liver disease x 12 years and she reports it is end stage, she has pancreatitis, severe bleeding in her colon and esphogeal irritation Treatment Goals Patient/Caregiver Goals treatment goals include learning exercises she can do to be able to hold her 1 year old grandson without pain PT-OP-C Subjective Start: 08/02/24 17:03 Freq: Status: Active Protocol: Document 08/31/24 10:40 AB (Rec: 08/31/24 12:59 AB [id number]) OP-PT Subjective Patient Comments Patient Comments Patient reports she just out of the hospital [facility] on Thursday. Patient reports she was hospitalized for 5 days as she was bleeding and they couldn't get it under control. Patient reports she had appt with primary care on Thursday. Patient reports she has no restricions , comments back isn't hurting, but is stills squeaky, did some gardening today. PT-OP-F Manual Assessment Start: 08/02/24 08:18 Freq: Status: Active Protocol: Document 08/02/24 08:19 [facility] (Rec: 08/02/24 09:01 AMH [id number]) Manual Assessments Soft Tissue Assessment Soft Tissue Mobility Assessment right greater than left lumbar muscle spasm and guarding Joint Mobility Assessment Joint Mobility Assessment decreased thoracic spine mobility into extension, Decreased PA glides of T2-T10 thoracic kyphosis PT-OP-J Posture/Palpation/Skin Start: 08/02/24 08:18 Freq: Status: Active Protocol: Document 08/31/24 10:40 AB (Rec: 08/31/24 16:24 AB [id number]) Palpation Assessment Location Lumbar parapsinals Palpation Location Lumbar and thoracic paraspinals, bilateral Palpation Findings None/Normal Palpation Details reports no pain with palpation PT-OP-K Range of Motion Start: 08/02/24 16:38 Freq: Status: Active Protocol: Document 08/31/24 10:40 AB (Rec: 08/31/24 16:24 AB [id number]) Lumbar Spine Range of Motion Lumbar Spine Active Testing Position Standing Flexion 95 Extension 60 Rotation Left 90 Rotation Right 100 Lateral Flexion Left 90 Lateral Flexion Right 90 Comments Thoracic 5% extension Rot L 80 % L 70% PT-OP-M Strength Start: 08/02/24 08:18 Freq: Status: Active Protocol: Document 08/02/24 08:15 AM[facility] (Rec: 08/02/24 16:44 [facility] [id number]) Trunk Strength Trunk Manual Muscle Testing Testing Position Supine Flexion 2+ Poor+ Extension 3 Fair Core Stabilization poor TA activation and decreased core stability PT-OP-T Assessment and Plan Start: 08/02/24 08:18 Freq: Status: Active Protocol: Document 09/15/24 09:40 [facility] (Rec: 09/15/24 09:41 [facility] [id number]) Physical Therapy Assessment Assessment Summary Assessment Ani has not been able to attend PT visits as she has been sick and was hospitalized . At this point we will DC PT but would be happy to continue in the future when she is stong enough to attend out patient PT Physical Therapy Plan Discharge Physical Therapy Discharge Reasons Change in Medical Status
== END 2024-09-15 16:16 | disposition home or self-care (01) ==
LOC: PHYS 11:30
PROVIDERS: Family Provider Family Medicine; PCP Family Medicine; Referring Provider Family Medicine; Visit Provider Family Medicine
DX: M62.830 Muscle spasm of back (principal); M53.9 Dorsopathy, unspecified; M40.204 Unspecified kyphosis, thoracic region; M62.81 Muscle weakness (generalized)
CPT/HCPCS: 97110; 97140; 97163

== ENCOUNTER → 2024-09-19 10:47 | Outpatient (CLI) | payer OTHER, SELFPAY ==
[2024-07-04 10:20] VITALS: BMI 21.4
[2024-09-19 11:12] LABS: Add Manual Diff / Slide Review NO; Basophils Absolute Auto 0 /uL (0-100); Basophils Percent Auto 0.5 % (0-2); Eosinophils Absolute Auto 100 /uL (0-450); Eosinophils Percent Auto 2.1 % (2-4); Hematocrit 30.8 % (36-46); Hemoglobin 9.9 g/dL (12.0-16.0); Lymphocytes Absolute Auto 800 /uL (1100-4500); Lymphocytes Percent Auto 12.9 % (25-40); Mean Corpuscular Hemoglobin 25.9 PG (26-34); Mean Corpuscular Volume 80.9 fL (80-100); Monocytes Absolute Auto 700 /uL (0-900); Monocytes Percent Auto 12.1 % (3-14); Neutrophils Absolute Auto 4300 /uL (1500-7000); Neutrophils Percent Auto 72.4 % (50-75); Platelet Count 85 X10^3/uL (150-400); Red Blood Cell Count 3.81 X10^6/uL (4.0-5.2); Red Cell Distribution Width 17.9 % (11.6-14.8); White Blood Cell Count 5.9 X10^3/uL (4.5-11.0)
[2024-09-19 11:35] LABS: Alanine Aminotransferase 49 IU/L (<35); Albumin 3.6 g/dL (3.5-5.0); Albumin Globulin Ratio 0.9 (1.0-2.8); Alkaline Phosphatase 101 U/L (38-126); Aspartate Aminotransferase 101 IU/L (14-36); BUN Creatinine Ratio 18.8 (6-22); Blood Urea Nitrogen 16 mg/dL (7-17); Calcium 9.1 mg/dL (8.4-10.2); Carbon Dioxide 29 mmol/L (22-32); Chloride 100 mmol/L (98-107); Estimated Glomerular Filt Rate > 60 mL/min (>60); Globulin 3.9 g/dL (1.7-4.1); Glucose 115 mg/dL (80-110); HEMOLYSIS 16 (0-50); Lipase 282 U/L (23-300); Sodium 136 mmol/L (137-145); Total Protein 7.5 g/dL (6.3-8.2)
== END ==
LOC: LAB 10:48
PROVIDERS: Family Provider Family Medicine; PCP Family Medicine; Referring Provider Family Medicine; Visit Provider Family Medicine
DX: K25.9 Gastric ulcer, unspecified as acute or chronic, without hemorrhage or perforation (principal); D64.9 Anemia, unspecified; I85.00 Esophageal varices without bleeding; D69.6 Thrombocytopenia, unspecified; K72.90 Hepatic failure, unspecified without coma
CPT/HCPCS: 36415; 80053; 83690; 85025

== ENCOUNTER → 2024-09-28 10:37 | Outpatient (CLI) | payer OTHER, SELFPAY ==
[2024-07-04 10:20] VITALS: BMI 21.4
[2024-09-28 11:18] LABS: Add Manual Diff / Slide Review NO; Basophils Absolute Auto 100 /uL (0-100); Basophils Percent Auto 1.4 % (0-2); Eosinophils Absolute Auto 200 /uL (0-450); Eosinophils Percent Auto 3.4 % (2-4); Hematocrit 30.5 % (36-46); Hemoglobin 9.7 g/dL (12.0-16.0); Lymphocytes Absolute Auto 1100 /uL (1100-4500); Lymphocytes Percent Auto 24.5 % (25-40); Mean Corpuscular HGB Conc 31.9 % (30-36); Mean Corpuscular Hemoglobin 25.5 PG (26-34); Monocytes Absolute Auto 400 /uL (0-900); Monocytes Percent Auto 9.9 % (3-14); Neutrophils Absolute Auto 2700 /uL (1500-7000); Neutrophils Percent Auto 60.8 % (50-75); Platelet Count 121 X10^3/uL (150-400); Red Blood Cell Count 3.81 X10^6/uL (4.0-5.2); Red Cell Distribution Width 17.6 % (11.6-14.8); White Blood Cell Count 4.5 X10^3/uL (4.5-11.0)
[2024-09-28 11:40] LABS: Alanine Aminotransferase 40 IU/L (<35); Albumin 3.5 g/dL (3.5-5.0); Albumin Globulin Ratio 0.8 (1.0-2.8); Alkaline Phosphatase 120 U/L (38-126); Aspartate Aminotransferase 91 IU/L (14-36); BUN Creatinine Ratio 15.6 (6-22); Bilirubin Direct 0.5 mg/dL (0.0-0.4); Bilirubin Total 1.1 mg/dL (0.2-1.3); Blood Urea Nitrogen 12 mg/dL (7-17); Carbon Dioxide 24 mmol/L (22-32); Chloride 106 mmol/L (98-107); Estimated Glomerular Filt Rate > 60 mL/min (>60); Globulin 4.2 g/dL (1.7-4.1); Glucose 129 mg/dL (80-110); HEMOLYSIS < 15 (0-50); Potassium 3.7 mmol/L (3.4-5.1); Sodium 140 mmol/L (137-145); Total Protein 7.7 g/dL (6.3-8.2)
== END ==
PROVIDERS: Family Provider Family Medicine; PCP Family Medicine; Referring Provider Family Medicine; Visit Provider Family Medicine
DX: K25.9 Gastric ulcer, unspecified as acute or chronic, without hemorrhage or perforation (principal); K72.90 Hepatic failure, unspecified without coma; K92.0 Hematemesis; Z98.890 Other specified postprocedural states; Z87.19 Personal history of other diseases of the digestive system; K74.60 Unspecified cirrhosis of liver
CPT/HCPCS: 36415; 80053; 82248; 85025

== ENCOUNTER → 2024-10-28 15:44 | Outpatient (CLI) | payer OTHER, SELFPAY ==
[2024-07-04 10:20] VITALS: BMI 21.4
[2024-10-28 16:27] LABS: Add Manual Diff / Slide Review NO; Basophils Absolute Auto 0 /uL (0-100); Basophils Percent Auto 0.5 % (0-2); Eosinophils Absolute Auto 100 /uL (0-450); Eosinophils Percent Auto 2.4 % (2-4); Hematocrit 23.5 % (36-46); Hemoglobin 7.5 g/dL (12.0-16.0); Lymphocytes Absolute Auto 500 /uL (1100-4500); Lymphocytes Percent Auto 16.3 % (25-40); Mean Corpuscular Hemoglobin 25.5 PG (26-34); Mean Corpuscular Volume 79.6 fL (80-100); Monocytes Absolute Auto 600 /uL (0-900); Neutrophils Absolute Auto 1800 /uL (1500-7000); Neutrophils Percent Auto 60.8 % (50-75); Platelet Count 65 X10^3/uL (150-400); Red Blood Cell Count 2.95 X10^6/uL (4.0-5.2); Red Cell Distribution Width 18.3 % (11.6-14.8); White Blood Cell Count 2.9 X10^3/uL (4.5-11.0)
== END ==
LOC: LAB 15:44
PROVIDERS: Family Provider Family Medicine; PCP Family Medicine; Referring Provider Family Medicine; Visit Provider Family Medicine
DX: K92.0 Hematemesis (principal); K25.9 Gastric ulcer, unspecified as acute or chronic, without hemorrhage or perforation
CPT/HCPCS: 36415; 85025

== ENCOUNTER 2024-10-28 17:38 | Emergency (ER) | payer OTHER, SELFPAY ==
[2024-07-04 10:20] VITALS: BMI 21.4
[2024-10-28] VITALS (43 sets, daily range): BP systolic 81–124; BP diastolic 50–75; PULSE 71–105; RESP 16–46; TEMP 36.9–38.2; O2SAT 79–99; BMI 22.3
--- NOTE | 2024-10-28 18:38 | ED_ITS ---
HPI - GI Bleed General Chief complaint: GI Bleed Stated complaint: sent by PCP abn labs Time Seen by Provider: 10/28/24 18:07 Source: patient Mode of arrival: Ambulatory History of Present Illness HPI Narrative: 64-year-old woman long history of alcohol use disorder, cirrhosis with renal failure currently on lactulose and rifaximin, furosemide nadolol. History of bleeding from the GI tract including upper bleeding but recently having chronic episodes of fairly significant hemorrhoidal bleeding. She notes over the past week she has been having quite a bit of hemorrhoidal bleeding typically controlled with pressure. She has not had any active bleeding for the last 3 days. She saw her primary care physician today who checked blood work and found her hemoglobin had dropped from 9.7-7.5 and she was having signs of acute anemia with exertional dyspnea, increasing fatigue and dizziness when standing. He sent her to the emergency room for further evaluation in anticipation of blood transfusion. Related Data Home Medications Medication Instructions Recorded Confirmed lactulose 10 gram/15 mL oral 15 ml PO BID PRN per patient 10/16/22 10/28/24 solution discretion rifaximin 550 mg tablet (Xifaxan) 550 mg PO BID 06/16/23 10/28/24 omega 4-axe-ykp-fish oil 300 1 cap PO DAILY 04/01/24 10/28/24 mg-1,000 mg capsule (Fish Oil) sennosides 8.6 mg capsule (senna) 17.2 mg PO BEDTIME 08/25/24 10/28/24 Previous Rx's Medication Instructions Recorded furosemide 20 mg tablet 40 mg (2 x 20 mg) PO QAM #60 tabs 10/07/23 nadolol 20 mg tablet 30 mg (1.5 x 20 mg) PO DAILY #135 10/14/23 tabs magnesium oxide 500 mg PO DAILY #30 tabs 10/22/23 levothyroxine 100 mcg capsule 100 mcg PO DAILY #90 caps 01/11/24 vit,calcium no.40-iron 1 tab PO DAILY #90 tabs 02/08/24 fum 27 mg iron-folate no.1 1 mg tablet sucralfate 1 gram tablet (Carafate) 1 g PO BID #180 tabs 03/23/24 lorazepam 0.5 mg tablet 0.5 mg PO BEDTIME PRN sleep #30 08/05/24 tabs liothyronine 5 mcg tablet 5 mcg PO DAILY #180 tabs 08/25/24 spironolactone 50 mg tablet 100 mg (2 x 50 mg) PO DAILY #90 08/25/24 tabs pregabalin 75 mg capsule 75 mg PO TID #90 caps 09/02/24 omeprazole 40 mg capsule,delayed 40 mg PO .COMPLEX GERD #135 caps 09/19/24 release ondansetron 4 mg disintegrating 4 mg PO Q8H PRN nausea and 09/19/24 tablet vomiting #30 tabs oxycodone 5 mg tablet 5 mg PO Q6H PRN pain #48 tabs 09/19/24 Allergies Allergy/AdvReac Type Severity Reaction Status Date / Time baclofen AdvReac Severe Hallucinati Verified 10/28/24 15:07 ng ciprofloxacin AdvReac Intermediate Vomiting Verified 10/28/24 15:07 Review of Systems Review of Systems Narrative: Pertinent positive and negative findings as per HPI Patient History Medical History Stomach ulcer Hematemesis of fresh blood Multilevel spondylosis Back pain Alcoholic cirrhosis GERD (gastroesophageal reflux disease) Pancytopenia Thrombocytopenia Anemia due to blood loss, acute Bleeding internal hemorrhoids Pancreatic lesion (~04/18/23) Weakness of left upper extremity Stroke Anemia, macrocytic Anemia, blood loss Alcohol use disorder, severe, in early remission Hemorrhoids, internal Depression Shortness of breath Hypercalcemia Weight gain Ascites due to alcoholic cirrhosis SBO (small bowel obstruction) Pancreatitis Intermittent palpitations (04/2019) History of blood transfusion (10/2015) Coagulation disorder (2012) Hypothyroidism Hypertension History of heavy periods (2014) Ovarian cyst (2012) Painful menstrual periods (2012) Measles Mumps Chicken pox Eczema (2014) Psoriasis (2014) PTSD (post-traumatic stress disorder) (1999) Anxiety EV (esophageal varices) (10/2015) Portal hypertensive gastropathy (05/2015) Nonalcoholic fatty liver disease GI bleeding (2015) Cirrhosis (2012) Cardiac arrhythmia History of alcohol abuse (12/27/15) Surgical History H/O bilateral oophorectomy History of appendectomy History of inguinal hernia repair History of cholecystectomy History of esophagogastroduodenoscopy (EGD) (05/2015) Status post laparoscopic supracervical hysterectomy (08/25/16) Status post hysteroscopy (06/17/11) Status post hernia repair Status post appendectomy History of esophagogastroduodenoscopy (EGD) (01/2009) Status post colonoscopy (01/2009) Family History Grandfather Heart disease [place] (myocardial infarction) Grandmother Alcoholism Father No problems noted. Mother No problems noted. Grandfather Heart disease Grandmother Colon cancer Brother No problems noted. Social History household members: family Smoking Status: Never smoker alcohol intake: former Smoking Status: Never smoker alcohol intake frequency: 3 or more drinks per day Alcohol type: wine Exam Initial Vital Signs Initial Vital Signs: Vital Signs Temperature 98.5 F 10/28/24 18:19 Pulse Rate 74 10/28/24 18:19 Respiratory Rate 18 10/28/24 18:19 Blood Pressure 108/57 L 10/28/24 18:19 Pulse Oximetry 99 10/28/24 18:19 Oxygen Delivery Method Room Air 10/28/24 18:19 General: Chronically ill-appearing but in no acute distress. Able to give a complete and coherent history. HEENT: Moist mucous membranes, normal sclera with reactive pupils, Respiratory: Lungs are clear to auscultation, no wheezing no rales no rhonchi. Full and symmetrical air movement Cardiac: Regular rate and rhythm no murmurs no bruits Abdomen: Soft, mild distention without rebound or guarding Skin: Warm and dry, spider hemangiomas and telangiectasias but no other rashes of concern Neurologic: Grossly neurologically intact with no obvious asymmetries or abnormalities Extremities: No trauma, no lower extremity edema Psych: Cooperative, appropriate insight and affect Rectal exam: She does have large protruding internal hemorrhoids with areas of excoriation that explain the bleeding. Do appear to be healing went also explains the lack of bleeding for 3 days Course Orders Ordered: ED Orders 10/28/24 18:57 Complete Blood Count AUTO DIFF Stat Comprehensive Metabolic Panel Stat PTT Partial Thromboplastin Donis Stat Prothrombin Time INR Stat 10/28/24 18:58 PRBC [Packed Cells] Stat Type and Screen Stat 10/28/24 23:50 Transfusion Reaction Stat 10/29/24 01:17 Urinalysis Screen (Dip Only) Stat Acetaminophen (Acetaminophen 325 Mg Tablet) 650 mg PO Q6H PRN PRN Reason: Fever/Mild Pain (1-3) Sodium Chloride (Normal Saline 0.9%) 1,000 mls @ 75 mls/hr IV CONT AGNIESZKA Last Infusion: 10/29/24 03:08 Dose: 0 mls/hr Documented By: Admin: 10/29/24 02:27 Dose: 75 mls/hr Documented By: Sodium Chloride (Normal Saline 0.9%) 500 mls @ 1,000 mls/hr IV BOLUS ONE Stop: 10/29/24 03:36 Last Admin: 10/29/24 03:08 Dose: 1,000 mls/hr Documented By: Naloxone HCl (Naloxone 0.4 Mg/Ml Vial) 0.2 mg IV Q2MIN PRN PRN Reason: Opiate Reversal Naloxone HCl (Naloxone 0.4 Mg/Ml Vial) 0.2 mg IV Q2MIN PRN PRN Reason: Opiate Reversal Ondansetron HCl (Ondansetron 4 Mg/2 Ml Inj) 4 mg IV Q8HR PRN PRN Reason: Nausea And Vomiting Discontinued Medications Acetaminophen (Acetaminophen 325 Mg Tablet) 975 mg PO NOW ONE Stop: 10/28/24 23:52 Last Admin: 10/28/24 23:55 Dose: 975 mg Documented By: WILMAR Diphenhydramine HCl (Diphenhydramine 50 Mg/Ml Vial) 25 mg IV NOW ONE Stop: 10/28/24 23:59 Last Admin: 10/29/24 00:06 Dose: 25 mg Documented By: WILMAR Epinephrine HCl (Epinephrine 1 Mg/Ml) 0.3 mg IM NOW ONE Stop: 10/29/24 01:03 Last Admin: 10/29/24 01:06 Dose: 0.3 mg Documented By: WILMAR Furosemide 60 mg/ Sodium (Chloride) 56 mls @ 112 mls/hr IV NOW ONE Stop: 10/28/24 21:46 Last Admin: 10/29/24 00:59 Dose: Not Given Documented By: WILMAR Sodium Chloride (Normal Saline 0.9%) 500 mls @ 1,000 mls/hr IV BOLUS ONE Stop: 10/29/24 01:31 Last Infusion: 10/29/24 01:40 Dose: Infused Documented By: Admin: 10/29/24 01:08 Dose: 1,000 mls/hr Documented By: WILMAR Sodium Chloride (Normal Saline 0.9%) 500 mls @ 1,000 mls/hr IV BOLUS ONE Stop: 10/29/24 02:09 Last Infusion: 10/29/24 02:15 Dose: Infused Documented By: Admin: 10/29/24 01:40 Dose: 1,000 mls/hr Documented By: Methylprednisolone (Methylprednisolone 125 Mg/2 Ml Vial) 125 mg IV NOW ONE Stop: 10/29/24 01:04 Last Admin: 10/29/24 01:14 Dose: 125 mg Documented By: WILMAR Ondansetron HCl (Ondansetron 4 Mg/2 Ml Inj) 4 mg IV NOW PRN PRN Reason: Nausea And Vomiting Ondansetron HCl (Ondansetron 4 Mg Odt) 4 mg SL NOW PRN PRN Reason: Nausea And Vomiting Pantoprazole Sodium (Pantoprazole 40 Mg Vial) 80 mg IV NOW ONE Stop: 10/28/24 18:28 Last Admin: 10/28/24 19:40 Dose: 80 mg Documented By: SARI Vital Signs Vital signs: Vital Signs - 8 hr 10/28/24 19:40 10/28/24 20:00 10/28/24 20:00 Temperature Pulse Rate 71 71 Respiratory Rate 18 20 Blood Pressure 107/58 L 101/61 Pulse Oximetry 99 98 Oxygen Delivery Method Room Air 10/28/24 20:27 10/28/24 20:27 10/28/24 20:30 Temperature Pulse Rate 75 Respiratory Rate 21 Blood Pressure 120/75 101/57 L Pulse Oximetry 98 Oxygen Delivery Method 10/28/24 20:30 10/28/24 21:00 10/28/24 21:00 Temperature Pulse Rate 72 79 Respiratory Rate 21 Blood Pressure 95/54 L Pulse Oximetry 99 99 Oxygen Delivery Method Room Air Room Air 10/28/24 21:30 10/28/24 21:30 10/28/24 21:32 Temperature Pulse Rate 78 80 Respiratory Rate Blood Pressure 81/50 L Pulse Oximetry 98 99 Oxygen Delivery Method 10/28/24 21:32 10/28/24 21:36 10/28/24 21:36 Temperature Pulse Rate 79 Respiratory Rate Blood Pressure 90/54 L 85/50 L Pulse Oximetry 99 Oxygen Delivery Method 10/28/24 21:38 10/28/24 21:38 10/28/24 21:44 Temperature Pulse Rate 81 Respiratory Rate 23 Blood Pressure 89/50 L Pulse Oximetry 98 Oxygen Delivery Method Room Air 10/28/24 21:45 10/28/24 21:45 10/28/24 21:50 Temperature Pulse Rate 81 80 Respiratory Rate 22 24 Blood Pressure 93/52 L Pulse Oximetry 79 L 98 Oxygen Delivery Method 10/28/24 21:50 10/28/24 21:55 10/28/24 21:55 Temperature Pulse Rate 79 Respiratory Rate 25 H Blood Pressure 95/55 L 86/53 L Pulse Oximetry 98 Oxygen Delivery Method 10/28/24 22:00 10/28/24 22:03 10/28/24 22:03 Temperature Pulse Rate 84 80 Respiratory Rate 24 22 Blood Pressure 93/63 Pulse Oximetry 98 97 Oxygen Delivery Method Room Air 10/28/24 22:05 10/28/24 22:05 10/28/24 22:10 Temperature Pulse Rate 79 79 Respiratory Rate 19 25 H Blood Pressure 91/57 L Pulse Oximetry 98 98 Oxygen Delivery Method 10/28/24 22:10 10/28/24 22:15 10/28/24 22:15 Temperature Pulse Rate 78 Respiratory Rate 21 Blood Pressure 92/53 L 91/54 L Pulse Oximetry 98 Oxygen Delivery Method 10/28/24 22:20 10/28/24 22:20 10/28/24 22:25 Temperature Pulse Rate 84 80 Respiratory Rate 21 21 Blood Pressure 91/55 L Pulse Oximetry 97 98 Oxygen Delivery Method 10/28/24 22:25 10/28/24 22:26 10/28/24 22:30 Temperature 99.2 F Pulse Rate 77 78 Respiratory Rate 19 16 Blood Pressure 95/55 L 95/55 L 86/54 L Pulse Oximetry Oxygen Delivery Method 10/28/24 22:30 10/28/24 22:30 10/28/24 22:35 Temperature 99.2 F Pulse Rate 78 77 Respiratory Rate 19 18 Blood Pressure 86/54 L 92/55 L Pulse Oximetry 97 Oxygen Delivery Method 10/28/24 22:35 10/28/24 22:35 10/28/24 22:40 Temperature 99.6 F Pulse Rate 77 78 Respiratory Rate 18 20 Blood Pressure 92/55 L 93/52 L Pulse Oximetry 95 Oxygen Delivery Method 10/28/24 22:40 10/28/24 22:40 10/28/24 22:45 Temperature Pulse Rate 78 Respiratory Rate 19 Blood Pressure 93/52 L 97/52 L Pulse Oximetry 98 Oxygen Delivery Method 10/28/24 22:45 10/28/24 22:50 10/28/24 22:50 Temperature Pulse Rate 77 81 Respiratory Rate 20 19 Blood Pressure 95/55 L Pulse Oximetry 97 97 Oxygen Delivery Method Room Air 10/28/24 22:55 10/28/24 22:55 10/28/24 23:00 Temperature Pulse Rate 75 77 Respiratory Rate 22 20 Blood Pressure 82/50 L Pulse Oximetry 97 97 Oxygen Delivery Method 10/28/24 23:00 10/28/24 23:05 10/28/24 23:05 Temperature Pulse Rate 76 Respiratory Rate 20 Blood Pressure 93/53 L 91/55 L Pulse Oximetry 97 Oxygen Delivery Method 10/28/24 23:10 10/28/24 23:10 10/28/24 23:10 Temperature Pulse Rate 87 77 Respiratory Rate 22 20 Blood Pressure 98/55 L 98/55 L Pulse Oximetry 97 Oxygen Delivery Method Room Air 10/28/24 23:18 10/28/24 23:18 10/28/24 23:20 Temperature Pulse Rate 82 76 Respiratory Rate 28 H 26 H Blood Pressure 99/56 L Pulse Oximetry 96 97 Oxygen Delivery Method 10/28/24 23:20 10/28/24 23:25 10/28/24 23:25 Temperature Pulse Rate 77 Respiratory Rate 21 Blood Pressure 107/59 L 92/54 L Pulse Oximetry 98 Oxygen Delivery Method 10/28/24 23:30 10/28/24 23:30 10/28/24 23:35 Temperature Pulse Rate 82 78 Respiratory Rate 46 H 18 Blood Pressure 88/65 L Pulse Oximetry 96 96 Oxygen Delivery Method Room Air 10/28/24 23:35 10/28/24 23:40 10/28/24 23:40 Temperature Pulse Rate 81 Respiratory Rate 21 Blood Pressure 96/51 L 106/55 L Pulse Oximetry 96 Oxygen Delivery Method 10/28/24 23:42 10/28/24 23:45 10/28/24 23:46 Temperature 100.8 F H 100.8 F H Pulse Rate 98 H 87 Respiratory Rate 35 H 22 Blood Pressure 124/58 L 124/58 L 124/58 L Pulse Oximetry Oxygen Delivery Method 10/28/24 23:46 10/28/24 23:54 10/28/24 23:54 Temperature Pulse Rate 87 102 H Respiratory Rate 21 22 Blood Pressure 120/67 Pulse Oximetry 98 94 Oxygen Delivery Method Room Air Room Air 10/28/24 23:55 10/28/24 23:56 10/28/24 23:56 Temperature 100.8 F H Pulse Rate 105 H Respiratory Rate 22 Blood Pressure 95/62 Pulse Oximetry 95 Oxygen Delivery Method Room Air 10/29/24 00:00 10/29/24 00:00 10/29/24 00:06 Temperature Pulse Rate 101 H 103 H Respiratory Rate 22 23 Blood Pressure 105/82 Pulse Oximetry 96 95 Oxygen Delivery Method Room Air Room Air 10/29/24 00:06 10/29/24 00:10 10/29/24 00:10 Temperature Pulse Rate 106 H Respiratory Rate 24 Blood Pressure 117/79 147/68 H Pulse Oximetry 95 Oxygen Delivery Method Room Air 10/29/24 00:15 10/29/24 00:15 10/29/24 00:20 Temperature Pulse Rate 98 H 94 H Respiratory Rate 24 22 Blood Pressure 126/67 Pulse Oximetry 96 95 Oxygen Delivery Method Room Air 10/29/24 00:20 10/29/24 00:25 10/29/24 00:25 Temperature Pulse Rate 96 H Respiratory Rate 22 Blood Pressure 135/56 L 122/59 L Pulse Oximetry 95 Oxygen Delivery Method Room Air 10/29/24 00:30 10/29/24 00:33 10/29/24 00:33 Temperature Pulse Rate 93 H 92 H Respiratory Rate 22 21 Blood Pressure 113/55 L Pulse Oximetry 96 96 Oxygen Delivery Method 10/29/24 00:35 10/29/24 00:35 10/29/24 00:40 Temperature Pulse Rate 93 H Respiratory Rate 21 Blood Pressure 112/56 L 109/66 Pulse Oximetry 95 Oxygen Delivery Method Room Air 10/29/24 00:40 10/29/24 00:45 10/29/24 00:45 Temperature Pulse Rate 106 H 93 H Respiratory Rate 21 21 Blood Pressure 102/59 L Pulse Oximetry 94 96 Oxygen Delivery Method Room Air 10/29/24 00:46 10/29/24 00:47 10/29/24 00:50 Temperature 103.1 F H 103.1 F H Pulse Rate 94 H Respiratory Rate 21 Blood Pressure Pulse Oximetry 95 Oxygen Delivery Method Room Air 10/29/24 00:50 10/29/24 00:55 10/29/24 00:55 Temperature Pulse Rate 93 H Respiratory Rate 22 Blood Pressure 102/53 L 91/53 L Pulse Oximetry 95 Oxygen Delivery Method 10/29/24 01:00 10/29/24 01:00 10/29/24 01:01 Temperature Pulse Rate 94 H Respiratory Rate 22 Blood Pressure 82/50 L 79/48 L Pulse Oximetry 95 Oxygen Delivery Method Room Air 10/29/24 01:01 10/29/24 01:02 10/29/24 01:02 Temperature Pulse Rate 97 H 92 H Respiratory Rate 22 22 Blood Pressure 79/46 L Pulse Oximetry 95 95 Oxygen Delivery Method 10/29/24 01:05 10/29/24 01:05 10/29/24 01:10 Temperature Pulse Rate 92 H 92 H Respiratory Rate 22 22 Blood Pressure 88/52 L Pulse Oximetry 94 94 Oxygen Delivery Method Room Air 10/29/24 01:10 10/29/24 01:15 10/29/24 01:15 Temperature Pulse Rate 91 H Respiratory Rate 22 Blood Pressure 90/51 L 86/50 L Pulse Oximetry 94 Oxygen Delivery Method 10/29/24 01:17 10/29/24 01:17 10/29/24 01:19 Temperature 102.7 F H Pulse Rate 92 H Respiratory Rate 20 Blood Pressure 91/51 L Pulse Oximetry 95 Oxygen Delivery Method 10/29/24 01:20 10/29/24 01:20 10/29/24 01:25 Temperature Pulse Rate 92 H Respiratory Rate 20 Blood Pressure 92/52 L 86/54 L Pulse Oximetry 94 Oxygen Delivery Method Room Air 10/29/24 01:25 10/29/24 01:30 10/29/24 01:30 Temperature Pulse Rate 88 92 H Respiratory Rate 21 21 Blood Pressure 91/51 L Pulse Oximetry 94 94 Oxygen Delivery Method Room Air 10/29/24 01:35 10/29/24 01:35 10/29/24 01:37 Temperature Pulse Rate 86 Respiratory Rate 21 Blood Pressure 89/51 L 91/54 L Pulse Oximetry 95 Oxygen Delivery Method Room Air 10/29/24 01:37 10/29/24 01:40 10/29/24 01:40 Temperature Pulse Rate 86 88 Respiratory Rate 20 21 Blood Pressure 89/50 L Pulse Oximetry 93 93 Oxygen Delivery Method Room Air Room Air 10/29/24 01:45 10/29/24 01:45 10/29/24 01:50 Temperature Pulse Rate 87 87 Respiratory Rate 30 H 30 H Blood Pressure 90/51 L Pulse Oximetry 95 95 Oxygen Delivery Method 10/29/24 01:50 10/29/24 01:53 10/29/24 01:53 Temperature Pulse Rate 91 H Respiratory Rate 31 H Blood Pressure 88/55 L 89/54 L Pulse Oximetry 95 Oxygen Delivery Method 10/29/24 01:55 10/29/24 01:55 Temperature Pulse Rate 91 H Respiratory Rate 28 H Blood Pressure 91/54 L Pulse Oximetry 96 Oxygen Delivery Method MDM - GI Bleed Lab Data 10/28/24 18:57 10/28/24 18:57 Labs: Lab Results 10/28/24 10/28/24 10/29/24 Range/Units 18:57 18:58 01:17 WBC 3.0 L (4.5-11.0) X10^3/uL RBC 3.41 L (4.0-5.2) X10^6/uL Hgb 8.6 L (12.0-16.0) g/dL Hct 27.1 L (36-46) % MCV 79.6 L (80-100) fL MCH 25.3 L (26-34) PG MCHC 31.8 (30-36) % RDW 18.2 H (11.6-14.8) % Plt Count 67 L (150-400) X10^3/uL Neut % (Auto) 64.3 (50-75) % Lymph % (Auto) 15.5 L (25-40) % Mineral % (Auto) 17.3 H (3-14) % Eos % (Auto) 2.1 (2-4) % Baso % (Auto) 0.8 (0-2) % Neut # (Auto) 1900 (4469-4048) /uL Lymph # (Auto) 500 L (5248-9889) /uL Mineral # (Auto) 500 (0-900) /uL Eos # (Auto) 100 (0-450) /uL Baso # (Auto) 0 (0-100) /uL PT 18.4 H (9.4-12.5) SECONDS INR 1.6 H (0.9-1.3) APTT 37 H (25.1-36.5) SECONDS Sodium 136 L (137-145) mmol/L Potassium 3.8 (3.4-5.1) mmol/L Chloride 99 (98-107) mmol/L Carbon Dioxide 27 (22-32) mmol/L BUN 14 (7-17) mg/dL Creatinine 0.98 (0.52-1.04) mg/dL Estimated GFR > 60 (>60) mL/min BUN/Creatinine Ratio 14.3 (6-22) Glucose 90 (80-110) mg/dL Calcium 8.9 (8.4-10.2) mg/dL Total Bilirubin 1.1 (0.2-1.3) mg/dL AST 92 H (14-36) IU/L ALT 37 H (<35) IU/L Alkaline Phosphatase 106 (38-126) U/L Total Protein 7.9 (6.3-8.2) g/dL Albumin 3.8 (3.5-5.0) g/dL Globulin 4.1 (1.7-4.1) g/dL Albumin/Globulin Ratio 0.9 L (1.0-2.8) Urine Color Yellow Urine Appearance Clear Urine pH 8.0 (4.5-8.0) Ur Specific [place] 1.015 (1.000-1.035) Urine Protein Negative (Negative) Urine Glucose (UA) Negative (Negative) g/dL Urine Ketones Negative (NEGATIVE) Urine Occult Blood Negative (Negative) Urine Nitrate Negative (Negative) Urine Bilirubin Negative (NEGATIVE) Urine Urobilinogen 1.0 (0.2) E.U./dL Ur Leukocyte Esterase Negative (NEGATIVE) Blood Type A Positive Antibody Screen Negative Crossmatch See Detail Urine Dip Bedside Urine Glucose Negative Bedside Urine Bilirubin - Negative Bedside Urine Ketone - Negative Urine Specific L[place] 1.010 Bedside Urine Occult Blood - Negative Bedside Urine pH 8.0 Bedside Urine Protein - Negative Bedside Urine Urobilinogen 0.2 Bedside Urine Nitrite - Negative Bedside Urine Leukocytes - Negative Esterase MDM Narrative Medical decision making narrative: CC: Acute symptomatic anemia concern for GI bleeding Complicating co-morbidities: Alcoholic cirrhosis, pancytopenia, chronic anemia worse with significant hemorrhoidal bleeding with no sign of acute GI bleeding Data collected from: patient Medical records reviewed: Primary care notes, prior ER notes as well as GI notes are reviewed Differential considered: Upper GI bleeding, lower GI bleeding, esophageal varices, bleeding hemorrhoids. Exam documented above, pertinent findings include: Patient is alert and appropriate. Belly is not tender. She has had no vomiting and no bloody stools. Internal hemorrhoids extending past the anal verge do show evidence of bleeding that now appears to be resolved Lab Test results independently reviewed as above. Pertinent findings: Hemoglobin from September 28 was 9.7 which is close to her fairly recent baseline. On September 27 at 4:00 p.m. hemoglobin was 7.5. Repeat when she is in the emergency department at 7:00 p.m. shows hemoglobin up to 8.6. Because she is still symptomatic, had had active bleeding, decision was made to give her a unit of blood Treatments: Blood transfusion is stopped proximally [address] into the unit of blood. Oral Tylenol, IV Benadryl, IV Solu-Medrol and IM epinephrine all administered. A total of 1 L of fluid for relatively low blood pressures. Re-evaluations: 1150 patient developing a transfusion reaction with rigors and chills, slight cough. Blood is discontinued. It looks like approximately a 3rd of the unit has been given. Benadryl and Tylenol given Discussion: 64-year-old woman with a history of cirrhosis and complications of her alcohol use disorder. She has had upper GI bleeding and has known esophageal varices. She has had lower GI bleeding she currently is not having any bleeding but earlier this week was having quite a bit of internal hemorrhoidal bleeding has been seen by her community service aide. Finds that pressure seems to be helpful and has not had any active bleeding from her rectum, in her stools or with vomiting over the last 3 days. She saw her primary care physician with complaints of dizziness and some exertional dyspnea and was found to have a hemoglobin low at 7.5 which was a decrease from 9.7 on September 28. On repeat in the emergency department 3 hours later it was 8.6. Because she was relatively hypotensive with symptoms as described decision was made to give her a unit of packed red blood cells. There was never had difficulties with transfusions and has had quite a few in the past. Within a few minutes of the blood transfusion starting she developed rigors, chills, relative hypotension general malaise. Responded to initial treatments. Care is reviewed with the hospitalist and patient was going to be admitted to the ICU for further evaluation. There does not appear to be any evidence of ongoing bleeding as a source of her hypotension. Prior to transfer to the ICU blood pressure is 82/50. H&H is rechecked and she is given another dose of IM 0.3 mg epinephrine for acute anaphylaxis secondary to blood transfusion prior to transfer to the floor. Transfer to the ICU is safe and appropriate at this time Critical Care Time Critical Care Time Critical Care Time: Yes Total Critical Care Time: 36 Attestation: Critical care time is separate from other billable procedures. There is a high probability of a significant, sudden or life-threatening deterioration that requires my full and direct attention, intervention and personal management. This critical care time includes consultation with family and other consulting doctors, review of records, and interpretation of data from labs, EKGs and imaging as well as managements of acute transfusion reaction with anaphylactic response requiring epinephrine and ongoing fluid management. Discharge Plan Departure Patient Disposition: Admitted as Observation Clinical Impression: Bleeding hemorrhoid, Acute on chronic anemia Acute hemolytic transfusion reaction (AHTR) w/antigen incompatibility Qualifiers: Encounter type: initial encounter Qualified Code(s): T80.910A - Acute hemolytic transfusion reaction, unspecified incompatibility, initial encounter Alcoholic cirrhosis of liver Qualifiers: Ascites presence: with ascites Qualified Code(s): K70.31 - Alcoholic cirrhosis of liver with ascites Admit Date/Time: 10/29/24 01:55 Admit Provider: Magdaleno Moulton
--- NOTE | 2024-10-28 19:06 | EKG_ITS ---
[address] [address] [address], [place] [address] Test Date: 2024-10-28 Pat Name: Kristen Castle Department: Room: Gender: Female Chief Specialist Leed: AUSTEN : 1960 Requested By: Order Number: [id number] Reading MD: Sung Verde MD Measurements Intervals [place] Rate: 71 P: KS: QRS: 8 QRSD: 64 T: 56 QT: 430 QTc: 467 Interpretive Statements Sinus rhythm Low voltage QRS Electronically Signed On 10-30-2024 8:24:25 PDT by Sung Verde MD
[2024-10-28 19:12] LABS: Add Manual Diff / Slide Review NO; Basophils Absolute Auto 0 /uL (0-100); Basophils Percent Auto 0.8 % (0-2); Eosinophils Absolute Auto 100 /uL (0-450); Eosinophils Percent Auto 2.1 % (2-4); Hematocrit 27.1 % (36-46); Hemoglobin 8.6 g/dL (12.0-16.0); Lymphocytes Absolute Auto 500 /uL (1100-4500); Lymphocytes Percent Auto 15.5 % (25-40); Mean Corpuscular HGB Conc 31.8 % (30-36); Mean Corpuscular Hemoglobin 25.3 PG (26-34); Mean Corpuscular Volume 79.6 fL (80-100); Monocytes Absolute Auto 500 /uL (0-900); Monocytes Percent Auto 17.3 % (3-14); Neutrophils Absolute Auto 1900 /uL (1500-7000); Neutrophils Percent Auto 64.3 % (50-75); Platelet Count 67 X10^3/uL (150-400); Red Blood Cell Count 3.41 X10^6/uL (4.0-5.2); Red Cell Distribution Width 18.2 % (11.6-14.8)
[2024-10-28 19:16] LABS: INR 1.6 (0.9-1.3); Prothrombin Time 18.4 SECONDS (9.4-12.5)
[2024-10-28 19:19] LABS: PTT Partial Thromboplastin Tim 37 SECONDS (25.1-36.5)
[2024-10-28 19:20] LABS: Alanine Aminotransferase 37 IU/L (<35); Albumin 3.8 g/dL (3.5-5.0); Albumin Globulin Ratio 0.9 (1.0-2.8); Alkaline Phosphatase 106 U/L (38-126); Aspartate Aminotransferase 92 IU/L (14-36); BUN Creatinine Ratio 14.3 (6-22); Bilirubin Total 1.1 mg/dL (0.2-1.3); Blood Urea Nitrogen 14 mg/dL (7-17); Calcium 8.9 mg/dL (8.4-10.2); Carbon Dioxide 27 mmol/L (22-32); Chloride 99 mmol/L (98-107); Estimated Glomerular Filt Rate > 60 mL/min (>60); Globulin 4.1 g/dL (1.7-4.1); Glucose 90 mg/dL (80-110); HEMOLYSIS < 15 (0-50); Potassium 3.8 mmol/L (3.4-5.1); Sodium 136 mmol/L (137-145); Total Protein 7.9 g/dL (6.3-8.2)
[2024-10-28] MEDS: PANTOPRAZOLE 40 MG VIAL 80 MG IV (19:40)
[2024-10-28] MEDS: ACETAMINOPHEN 325 MG TABLET 975 MG PO (23:55)
[2024-10-29] VITALS (76 sets, daily range): BP systolic 71–147; BP diastolic 38–82; PULSE 66–106; RESP 16–44; TEMP 39.3–39.5; O2SAT 93–98
[2024-10-29] MEDS: diphenhydrAMINE 50 MG/ML VIAL 25 MG IV (00:06)
--- NOTE | 2024-10-29 00:17 | PC.NURSE ---
2340 Patient had shaking/rigor temperature 100.8 oral (pre-transfusion temperature=99.2 oral); PRBC transfusion paused. Patient denies SOB, Lungs CTA all lobes, patient denies chest pain or back pain. HR 98-105. 2345 Provider at bedside. Orders obtained. 2351 PO Tylenol given 975 mg Patient remains febrile, tachycardic, shaking rigors, Lungs CTA all lobes, reports generalized upper body pain - chest, abdomen, back, shoulders, arms 7/10
--- NOTE | 2024-10-29 00:49 | PC.NURSE ---
0006 IV benadryl given 25 mg vitals in flowsheet 0015 Patient has 1 episode of vomiting clear fluid, very small amt, less than 60 cc. 0030 Phlebotomy @ bedside for transfusion reaction protocol serum labs 0042 Urine sample obtained, patient voided into bsc w/hat. 375 ml clear dark yellow urine obtained, sample labeled and sent to lab. Patient with generalized weakness, increased spasm/shaking to stand; requires moderate assist x 1 with stand and pivot to bedside commode. 0046 repeat temperature 103.1 oral patient reports upper body pain decreased to 6/10 Rigors improved and no longer present except with exertion/moving/using muscles but gone at rest.
[2024-10-29] MEDS: EPINEPHrine 1 MG/ML 0.3 MG IM ×2 (01:06→03:38)
[2024-10-29] MEDS: SODIUM CHLORIDE 0.9% 500 ML 1000 ML IV ×3 (01:08→03:08)
[2024-10-29] MEDS: methylPREDNISolone 125 MG/2 ML VIAL IV (01:14)
[2024-10-29 01:21] LABS: Appearance Urine UA CLEAR; Bilirubin Urine UA NEGATIVE (NEGATIVE); Color Urine UA YELLOW; Glucose Urine UA NEGATIVE (Negative); Ketones Urine UA NEGATIVE (NEGATIVE); Leukocyte Esterase Urine UA NEGATIVE (NEGATIVE); Nitrite Urine UA NEGATIVE (Negative); Occult Blood Urine UA NEGATIVE (Negative); Protein Urine UA NEGATIVE (Negative); Specific Gravity Urine UA 1.015 (1.000-1.035)
[2024-10-29] MEDS: SODIUM CHLORIDE 0.9% 1,000 ML 75 ML IV (02:27)
[2024-10-29 03:49] LABS: Hematocrit 22.1 % (36-46); Hemoglobin 7.2 g/dL (12.0-16.0)
--- NOTE | 2024-10-29 04:59 | DI.RAD.S_ITS ---
PROCEDURE: XR CHEST 1V INDICATIONS: central line placement TECHNIQUE: One view of the chest was acquired. COMPARISON: [facility], CR, XR CHEST 1V, 02/13/2024, 12:29. FINDINGS: Surgical changes and devices: Right central line with tip in the superior cavoatrial junction. Lungs and pleura: Lungs are clear. No pleural effusions or pneumothorax. Mediastinum: Mediastinal contours appear normal. Heart size is normal. Bones and chest wall: No suspicious bony lesions. Overlying soft tissues appear unremarkable. IMPRESSION: Appropriate placement of right central line without pneumothorax. Dictated by: Andry Razo M.D. on 10/29/2024 at 8:09 Approved by: Andry Razo M.D. on 10/29/2024 at 8:10
[2024-10-29] MEDS: EPINEPHrine 4 MG in DEXTROSE 5% IN WATER 246 ML 3.75 MG IV (05:14)
[2024-10-29 06:09] LABS: Add Manual Diff / Slide Review NO; Basophils Absolute Auto 0 /uL (0-100); Basophils Percent Auto 0.4 % (0-2); Eosinophils Absolute Auto 0 /uL (0-450); Hematocrit 22.3 % (36-46); Hemoglobin 7.3 g/dL (12.0-16.0); Lymphocytes Absolute Auto 100 /uL (1100-4500); Lymphocytes Percent Auto 3.7 % (25-40); Mean Corpuscular HGB Conc 32.6 % (30-36); Mean Corpuscular Hemoglobin 25.8 PG (26-34); Mean Corpuscular Volume 79.2 fL (80-100); Monocytes Absolute Auto 100 /uL (0-900); Monocytes Percent Auto 3.4 % (3-14); Neutrophils Absolute Auto 2600 /uL (1500-7000); Neutrophils Percent Auto 92.5 % (50-75); Platelet Count 45 X10^3/uL (150-400); Red Blood Cell Count 2.82 X10^6/uL (4.0-5.2); Red Cell Distribution Width 17.4 % (11.6-14.8); White Blood Cell Count 2.8 X10^3/uL (4.5-11.0)
== END 2024-10-29 08:15 | disposition short-term general hospital (02) ==
LOC: ED 18:07 → ICU 10-29 03:37 → ED 10-29 08:30
PROVIDERS: Emergency Provider Emergency Medicine; Family Provider Family Medicine; PCP Family Medicine; Referring Provider Emergency Medicine
DX: K64.9 Unspecified hemorrhoids (principal); D62 Acute posthemorrhagic anemia; K70.31 Alcoholic cirrhosis of liver with ascites; T80.910A Acute hemolytic transfusion reaction, unspecified incompatibility, initial encounter; I95.89 Other hypotension; K92.0 Hematemesis; K25.9 Gastric ulcer, unspecified as acute or chronic, without hemorrhage or perforation
CPT/HCPCS: 36415; 36430; 36556; 71045; 80053; 81003; 85014; 85018; 85025; 85610; 85730; 86078; 86850; 86900; 86901; 87040; 93005; 96361; 96365; 96366; 96372; 96375; 99285; 99291; P9016; J0171; J1200; J2470; J2919

== ENCOUNTER → 2024-11-22 16:40 | Outpatient (CLI) | payer OTHER, SELFPAY ==
[2024-07-04 10:20] VITALS: BMI 21.4
[2024-11-22 17:58] LABS: Add Manual Diff / Slide Review NO; Basophils Absolute Auto 0 /uL (0-100); Basophils Percent Auto 0.7 % (0-2); Eosinophils Absolute Auto 200 /uL (0-450); Eosinophils Percent Auto 2.7 % (2-4); Hematocrit 34.5 % (36-46); Hemoglobin 10.8 g/dL (12.0-16.0); Lymphocytes Absolute Auto 900 /uL (1100-4500); Lymphocytes Percent Auto 15.4 % (25-40); Mean Corpuscular HGB Conc 31.4 % (30-36); Mean Corpuscular Hemoglobin 25.5 PG (26-34); Mean Corpuscular Volume 81.4 fL (80-100); Monocytes Absolute Auto 900 /uL (0-900); Monocytes Percent Auto 15.3 % (3-14); Neutrophils Absolute Auto 3900 /uL (1500-7000); Neutrophils Percent Auto 65.9 % (50-75); Platelet Count 134 X10^3/uL (150-400); Red Blood Cell Count 4.25 X10^6/uL (4.0-5.2); Red Cell Distribution Width 19.3 % (11.6-14.8)
[2024-11-22 18:27] LABS: Alanine Aminotransferase 41 IU/L (<35); Albumin 3.6 g/dL (3.5-5.0); Albumin Globulin Ratio 0.8 (1.0-2.8); Alkaline Phosphatase 124 U/L (38-126); Aspartate Aminotransferase 101 IU/L (14-36); BUN Creatinine Ratio 16.3 (6-22); Bilirubin Total 1.8 mg/dL (0.2-1.3); Blood Urea Nitrogen 14 mg/dL (7-17); Calcium 9.1 mg/dL (8.4-10.2); Carbon Dioxide 27 mmol/L (22-32); Chloride 103 mmol/L (98-107); Estimated Glomerular Filt Rate > 60 mL/min (>60); Globulin 4.5 g/dL (1.7-4.1); Glucose 98 mg/dL (70-99); HEMOLYSIS < 15 (0-50); Potassium 3.8 mmol/L (3.4-5.1); Sodium 139 mmol/L (137-145); Total Protein 8.1 g/dL (6.3-8.2)
== END ==
PROVIDERS: Family Provider Family Medicine; PCP Family Medicine; Referring Provider Family Medicine; Visit Provider Family Medicine
DX: D64.9 Anemia, unspecified (principal); K70.30 Alcoholic cirrhosis of liver without ascites
CPT/HCPCS: 36415; 80053; 85025

== ENCOUNTER → 2024-11-24 15:58 | Outpatient (CLI) | payer OTHER, SELFPAY ==
[2024-07-04 10:20] VITALS: BMI 21.4
--- NOTE | 2024-11-24 15:59 | DI.MG.S_ITS ---
MM screening mammo BI: 11/24/2024. BI-RADS: 2 CLINICAL: 64-year old female for bilateral screening mammogram. Tyrer-Cuzick lifetime risk of 8.1%. No personal or first-degree family history of breast cancer. Current reported family history of breast cancer: maternal aunt. PRIOR EXAMS 10/20/2023, 03/21/2022, 03/06/2022, 01/31/2021, 02/14/2020, 01/25/2020. MAMMOGRAPHY TECHNIQUE: 2D and 3D (tomosynthesis) digital mammographic views obtained, with additional images as needed for full coverage. Current study was also evaluated with a Computer Aided Detection (CAD) system. DENSITY C. The breasts are heterogeneously dense, which may obscure small masses. MAMMOGRAPHY FINDINGS Right: No suspicious mass, asymmetry, microcalcification, or other abnormality seen. Left: Benign-appearing calcification noted on the left. Typically-benign vascular calcifications also noted. IMPRESSION: Right * No evidence of malignancy. Left * No evidence of malignancy with benign findings. RECOMMENDATIONS Bilateral * Annual screening mammography. OVERALL ASSESSMENT CATEGORY BI-RADS-2: Benign. The [employer] recommends annual screening mammography beginning at age 40 for women with average risk of breast cancer. ELECTRONICALLY SIGNED: Andreas Hackett M.D. on 11/25/2024 at 07:51:55 AM PT Interpreting Station ID: [id number]
== END ==
PROVIDERS: Family Provider Family Medicine; PCP Family Medicine; Referring Provider Family Medicine; Visit Provider Family Medicine
DX: Z12.31 Encounter for screening mammogram for malignant neoplasm of breast (principal); R92.1 Mammographic calcification found on diagnostic imaging of breast; R92.333 Mammographic heterogeneous density, bilateral breasts; Z80.3 Family history of malignant neoplasm of breast
CPT/HCPCS: 77063; 77067

== ENCOUNTER → 2024-12-09 11:26 | Outpatient (CLI) | payer OTHER, SELFPAY ==
[2024-07-04 10:20] VITALS: BMI 21.4
[2024-12-09 12:14] LABS: Add Manual Diff / Slide Review NO; Basophils Absolute Auto 0 /uL (0-100); Basophils Percent Auto 0.5 % (0-2); Eosinophils Absolute Auto 100 /uL (0-450); Eosinophils Percent Auto 2.7 % (2-4); Hematocrit 29.9 % (36-46); Hemoglobin 9.8 g/dL (12.0-16.0); Lymphocytes Absolute Auto 600 /uL (1100-4500); Lymphocytes Percent Auto 12.8 % (25-40); Mean Corpuscular HGB Conc 32.7 % (30-36); Mean Corpuscular Hemoglobin 26.9 PG (26-34); Mean Corpuscular Volume 82.2 fL (80-100); Monocytes Absolute Auto 600 /uL (0-900); Monocytes Percent Auto 13.8 % (3-14); Neutrophils Absolute Auto 3200 /uL (1500-7000); Neutrophils Percent Auto 70.2 % (50-75); Platelet Count 93 X10^3/uL (150-400); Red Blood Cell Count 3.63 X10^6/uL (4.0-5.2); Red Cell Distribution Width 19.5 % (11.6-14.8); White Blood Cell Count 4.6 X10^3/uL (4.5-11.0)
[2024-12-09 12:59] LABS: Alanine Aminotransferase 36 IU/L (<35); Albumin 3.4 g/dL (3.5-5.0); Albumin Globulin Ratio 0.9 (1.0-2.8); Alkaline Phosphatase 91 U/L (38-126); Aspartate Aminotransferase 78 IU/L (14-36); BUN Creatinine Ratio 23.8 (6-22); Bilirubin Total 1.3 mg/dL (0.2-1.3); Blood Urea Nitrogen 15 mg/dL (7-17); Calcium 9.4 mg/dL (8.4-10.2); Carbon Dioxide 23 mmol/L (22-32); Chloride 106 mmol/L (98-107); Estimated Glomerular Filt Rate > 60 mL/min (>60); Glucose 97 mg/dL (70-99); HEMOLYSIS < 15 (0-50); Potassium 3.7 mmol/L (3.4-5.1); Sodium 138 mmol/L (137-145); Total Protein 7.4 g/dL (6.3-8.2)
== END ==
PROVIDERS: Family Provider Family Medicine; PCP Family Medicine; Referring Provider Family Medicine; Visit Provider Family Medicine
DX: D64.9 Anemia, unspecified (principal); K70.30 Alcoholic cirrhosis of liver without ascites; K76.6 Portal hypertension; K31.89 Other diseases of stomach and duodenum; I85.00 Esophageal varices without bleeding; K72.90 Hepatic failure, unspecified without coma; K86.0 Alcohol-induced chronic pancreatitis; F10.20 Alcohol dependence, uncomplicated
CPT/HCPCS: 36415; 80053; 85025

== ENCOUNTER → 2025-01-24 06:36 | Outpatient (CLI) | payer MEDICARE, MEDICAID, SELFPAY ==
[2025-01-11 08:57] VITALS: BMI 21.4
--- NOTE | 2025-01-24 06:38 | DI.US.S_ITS ---
PROCEDURE: US ABDOMEN LIMITED INDICATIONS: CIRRHOSIS; POSSIBLE ASCITIES TECHNIQUE: Real-time scanning was performed of the abdominal and retroperitoneal organs, with image documentation. COMPARISON: [facility], CT, CT ABDOMEN PELVIS WITHOUT CONTRAST, 01/02/2025, 15:30. [facility], US, US ABDOMEN LIMITED, 02/23/2024, 19:22. FINDINGS: Liver: Coarse heterogeneous appearance of the liver with surface nodularity. Liver is normal in size. No hepatic mass. Gallbladder: Status post cholecystectomy. Biliary ducts: Intrahepatic bile ducts are non-dilated. Extrahepatic bile duct caliber measures 7.6 mm. Normal is 6-7 mm or less in diameter, or 10 mm or less post-cholecystectomy. Pancreas: Pancreas is not well visualized due to overlying bowel gas. Miscellaneous: No free abdominal fluid. IMPRESSION: Hepatic cirrhosis. No focal hepatic mass. No significant right upper quadrant ascites. Approved by: López Cohn M.D. on 01/24/2025 at 8:31
== END ==
PROVIDERS: PCP Family Medicine; Referring Provider Family Medicine; Visit Provider Family Medicine
DX: K70.31 Alcoholic cirrhosis of liver with ascites (principal); Z90.49 Acquired absence of other specified parts of digestive tract
CPT/HCPCS: 76705

== ENCOUNTER → 2025-03-27 12:07 | Outpatient (CLI) | payer MEDICARE, MEDICAID, SELFPAY ==
[2025-01-11 08:57] VITALS: BMI 21.4
[2025-03-27 12:37] LABS: Add Manual Diff / Slide Review NO; Hematocrit 32.6 % (36-46); Hemoglobin 10.7 g/dL (12.0-16.0); Lymphocytes Absolute Auto 500 /uL (1100-4500); Mean Corpuscular HGB Conc 32.9 % (30-36); Mean Corpuscular Hemoglobin 26.9 PG (26-34); Mean Corpuscular Volume 81.8 fL (80-100); Platelet Count 62 X10^3/uL (150-400)
[2025-03-27 13:15] LABS: Alanine Aminotransferase 30 IU/L (<35); Albumin 3.8 g/dL (3.5-5.0); Albumin Globulin Ratio 0.9 (1.0-2.8); Alkaline Phosphatase 87 U/L (38-126); Blood Urea Nitrogen 12 mg/dL (7-17); Calcium 9.1 mg/dL (8.4-10.2); Carbon Dioxide 24 mmol/L (22-32); Chloride 101 mmol/L (98-107); Estimated Glomerular Filt Rate > 60 mL/min (>60); Globulin 4.3 g/dL (1.7-4.1); Glucose 171 mg/dL (70-99); HEMOLYSIS 18 (0-50); Potassium 3.2 mmol/L (3.4-5.1); Sodium 137 mmol/L (137-145); Total Protein 8.1 g/dL (6.3-8.2)
== END ==
PROVIDERS: PCP Family Medicine; Referring Provider Family Medicine; Visit Provider Family Medicine
DX: K86.1 Other chronic pancreatitis (principal); K72.90 Hepatic failure, unspecified without coma; D64.9 Anemia, unspecified
CPT/HCPCS: 36415; 80053; 85025

== ENCOUNTER → 2025-05-09 12:08 | Outpatient (CLI) | payer MEDICARE, OTHER, SELFPAY ==
[2025-01-11 08:57] VITALS: BMI 21.4
--- NOTE | 2025-05-09 12:09 | DI.RAD.S_ITS ---
PROCEDURE: XR DEXA AXIAL SKELETON INDICATIONS: decreased bone density COMPARISON: No prior DEXA study for comparison. FINDINGS: Lumbar Spine: Bone mineral density 0.934 g/cm2, T score -1.0, Z-score 0.8. Left Femoral Neck: Bone mineral density 0.580 g/cm2, T score -2.4, Z-score -0.9. Left Hip: Bone mineral density 0.56 g/cm2, T score -1.5, Z-score -0.3. Fracture Risk Calculation (when applicable): 10-year fracture risk of a major osteoporotic fracture 19% without prior fracture, 30% with prior fracture and of a hip fracture 2.4% without prior fracture, 4.0% with prior fracture. (T score greater or equal to -1.0 to: NORMAL) (T score from -1.1 to -2.4: OSTEOPENIA) (T score less than or equal to -2.5: OSTEOPOROSIS) IMPRESSION: Osteopenia left femoral neck and left hip, normal lumbar spine. Follow-up guidelines as follows: Osteoporosis: Consider a repeat DEXA and Vertebral Fracture Assessment (VFA) exam in 2 years or sooner if medically necessary, to reassess this patient's status. Osteopenia: Consider a repeat DEXA in 2-3 years to reassess this patient's status, or if there is a new clinical indication. Normal: Consider a repeat DEXA in 5 years or sooner, or if there is a new clinical indication. All treatment decisions require clinical judgment and consideration of individual patient factors, including patient preferences, comorbidities, previous drug use, risk factors not captured in the FRAX model (e.g., frailty, falls, vitamin D deficiency, increased bone turnover, interval significant decline in bone density ) and possible under- or over-estimation of fracture risk by FRAX. In addition, the NOF Guide recommends that FDA-approved medical therapies be considered in postmenopausal women and men age >= 50 years with a: * Hip or vertebral (clinical or morphometric) fracture * T-score of <=-2.5 at the spine or hip * Ten-year fracture probability by FRAX of >= 3% for hip fracture or >=20% for major osteoporotic fracture. Dictated by: Kavin Stoll M.D. on 05/09/2025 at 16:14 Approved by: Kavin Stoll M.D. on 05/09/2025 at 16:25
== END ==
LOC: RAD 12:08
PROVIDERS: PCP Family Medicine; Referring Provider Family Medicine; Visit Provider Family Medicine
DX: M85.89 Other specified disorders of bone density and structure, multiple sites (principal)
CPT/HCPCS: 77080

== ENCOUNTER → 2025-05-29 13:25 | Outpatient (CLI) | payer MEDICARE, SELFPAY ==
[2025-01-11 08:57] VITALS: BMI 21.4
[2025-05-29 13:46] LABS: Add Manual Diff / Slide Review NO; Hematocrit 27.0 % (36-46); Hemoglobin 8.7 g/dL (12.0-16.0); Lymphocytes Absolute Auto 700 /uL (1100-4500); Mean Corpuscular HGB Conc 32.2 % (30-36); Mean Corpuscular Hemoglobin 25.8 PG (26-34); Mean Corpuscular Volume 80.1 fL (80-100); Platelet Count 91 X10^3/uL (150-400)
[2025-05-29 14:22] LABS: Alanine Aminotransferase 40 IU/L (<35); Albumin 3.8 g/dL (3.5-5.0); Albumin Globulin Ratio 1.0 (1.0-2.8); Alkaline Phosphatase 96 U/L (38-126); Blood Urea Nitrogen 17 mg/dL (7-17); Calcium 9.0 mg/dL (8.4-10.2); Carbon Dioxide 24 mmol/L (22-32); Chloride 103 mmol/L (98-107); Estimated Glomerular Filt Rate > 60 mL/min (>60); Globulin 4.0 g/dL (1.7-4.1); Glucose 94 mg/dL (70-99); HEMOLYSIS < 15 (0-50); Potassium 3.6 mmol/L (3.4-5.1); Sodium 138 mmol/L (137-145); Total Protein 7.8 g/dL (6.3-8.2)
== END ==
PROVIDERS: PCP Family Medicine; Referring Provider Family Medicine; Visit Provider Family Medicine
DX: D64.9 Anemia, unspecified (principal); K59.03 Drug induced constipation; D61.818 Other pancytopenia; K70.31 Alcoholic cirrhosis of liver with ascites; K72.90 Hepatic failure, unspecified without coma; I85.11 Secondary esophageal varices with bleeding
CPT/HCPCS: 36415; 80053; 85025

== ENCOUNTER → 2025-07-03 15:27 | Outpatient (CLI) | payer MEDICARE, SELFPAY ==
[2025-01-11 08:57] VITALS: BMI 21.4
[2025-07-03 16:43] LABS: Add Manual Diff / Slide Review NO; Hematocrit 21.9 % (36-46); Hemoglobin 7.0 g/dL (12.0-16.0); Lymphocytes Absolute Auto 600 /uL (1100-4500); Mean Corpuscular HGB Conc 32.1 % (30-36); Mean Corpuscular Hemoglobin 23.9 PG (26-34); Mean Corpuscular Volume 74.4 fL (80-100); Platelet Count 69 X10^3/uL (150-400)
[2025-07-03 17:10] LABS: HEMOLYSIS < 15 (0-50); Iron 20 ug/dL (37-170)
[2025-07-03 17:22] LABS: Percent Iron Saturation 5 % (15-50); Total Iron Binding Capacity 408 ug/dL (265-497); Transferrin 350 mg/dL (206-381)
[2025-07-03 17:45] LABS: Ferritin 6 ng/mL (11-264)
== END ==
PROVIDERS: PCP Family Medicine; Referring Provider Family Medicine; Visit Provider Family Medicine
DX: D64.9 Anemia, unspecified (principal); K62.5 Hemorrhage of anus and rectum; K64.8 Other hemorrhoids
CPT/HCPCS: 36415; 82728; 83540; 83550; 85025

== ENCOUNTER → 2025-07-10 10:39 | Outpatient (CLI) | payer MEDICARE, SELFPAY ==
[2025-01-11 08:57] VITALS: BMI 21.4
[2025-07-10 11:14] LABS: Hematocrit 24.1 % (36-46); Hemoglobin 7.6 g/dL (12.0-16.0); Mean Corpuscular HGB Conc 31.3 % (30-36); Mean Corpuscular Hemoglobin 23.0 PG (26-34); Mean Corpuscular Volume 73.4 fL (80-100); Platelet Count 73 X10^3/uL (150-400)
[2025-07-10 11:15] LABS: Add Manual Diff / Slide Review YES
[2025-07-10 11:36] LABS: Lymphocytes Percent Manual 27.0 % (25-45); Monocytes Percent Manual 16.0 % (2-11); Neutrophils Absolute Manual 1995 /uL (3000-5900); Segmented Neutrophils Percent 57.0 % (38-70); Total Cells Counted 100
[2025-07-10 11:37] LABS: Anisocytosis 1+; Hypochromasia 1+; Microcytosis 1+
== END ==
PROVIDERS: PCP Family Medicine; Referring Provider Family Medicine; Visit Provider Family Medicine
DX: D64.9 Anemia, unspecified (principal)
CPT/HCPCS: 36415; 85007; 85025